=== PATIENT | male | born 1935 | race Caucasian/White ===

== ENCOUNTER 2020-01-12 13:23 | Emergency (ER) | payer OTHER, SELFPAY ==
[2020-01-12 13:26] VITALS: BP 108/45; PULSE 61; RESP 16; TEMP 35.6; O2SAT 100; BMI 25.8
--- NOTE | 2020-01-12 13:33 | W.ED.GENADLT ---
HPI - General Adult General: Chief complaint: General Medical Stated complaint: passed out Time Seen by Provider: 01/12/20 13:30 History of Present Illness: HPI narrative: 84 yo male presents after an episode of syncope. 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 he had a similar episode a few weeks ago while he was standing at [facility] at the checkout got lightheaded dizzy and passed out did not remember what exactly happened. He was not evaluated after that episode. He denies knowledge of any previous arrhythmias or atrial fibrillation is aware of he does have a pacemaker but he was not really able to tell me why they gave it to him. He denies any episodes of chest pain or dyspnea associated with these syncopal episodes. Both times he been standing for prolonged period of time not had any other complaints recently generally not been ill. He denies chest pain shortness of breath or abdominal pain denies dysuria urgency or frequency change in bowel or bladder habits. He does tell me he is on a blood thinner but does not know the name or why. Associated symptoms: Deny chest pain, dyspnea, malaise, nausea, rash or vomiting Review of Systems Const: Denies: fever, chills, body aches, change in appetite, fatigue or malaise ENMT: Denies: throat pain, ear pain, nasal discharge or nasal congestion Card: Denies: chest pain, edema, shortness of breath on exertion or shortness of breath when lying down Resp: Denies: shortness of breath, productive cough or non-productive cough GI: Denies: abdominal pain, nausea, vomiting, vomiting blood, coffee grounds in vomit, diarrhea, constipation, bloating, blood in stool or black tarry stool : Denies: flank pain, painful urination, urinary frequency or urinary urgency Skin/Breast: Denies: rash or itching PFSH ED PFSH: Medical History (Updated 01/12/20 @ 16:14 by Scott Cisneros DO) Abdominal wall hernia BPH (benign prostatic hyperplasia) Diabetes mellitus Hypertension Surgical History (Updated 01/12/20 @ 13:54 by Scott Cisneros DO) H/O bilateral inguinal hernia repair S/P appendectomy Social History Smoking and tobacco status: never smoked Physical Exam Const: COMMON NORMALS: no apparent distress GENERAL APPEARANCE: cooperative and comfortable ORIENTATION/CONSCIOUSNESS: Yes awake, Yes oriented to person, Yes oriented to place and Yes oriented to time HENMT: COMMON NORMALS: normocephalic, head/scalp atraumatic, hearing grossly normal bilaterally, external ears normal, EAC's normal, TM's normal bilaterally, nasal mucous membranes and turbinates normal, moist oral mucous membranes and oropharynx normal HEAD & SCALP: normocephalic and atraumatic NOSE: nasal mucous membranes and turbinates normal EXTERNAL EAR: Yes external ears normal EXTERNAL AUDITORY CANAL: EAC's normal TYMPANIC MEMBRANE: TM's normal bilaterally Eye: COMMON NORMALS: PERRL, EOMs intact bilaterally, conjunctivae normal and no scleral icterus CONJUNCTIVA: Yes conjunctivae normal PUPIL: Yes PERRL Neck/C-Spine: COMMON NORMALS: full ROM, no lymphadenopathy, supple and no JVD Lymph: LYMPHATIC: no lymphadenopathy noted and no lymphedema noted Resp: COMMON NORMALS: normal respiratory effort, no retractions, no use of accessory muscles and clear to auscultation bilaterally AUSCULTATION: clear to auscultation bilaterally Cardio: COMMON NORMALS: no JVD, regular rhythm and no murmurs RATE: bradycardic RHYTHM: regular rhythm GI: COMMON NORMALS: soft to palpation and no hepatosplenomegaly AUSCULTATION: Yes normoactive bowel sounds PALPATION: Yes soft, No tender, No guarding and Yes no hepatosplenomegaly Extremity: COMMON NORMALS: normal to inspection, normal capillary refill, no clubbing, cyanosis or edema, no calf tenderness and no pedal edema Neuro: SENSORIUM/ORIENTATION: Yes oriented to person, Yes oriented to place and Yes oriented to time Skin: COMMON NORMALS: no rashes or lesions noted GENERAL SKIN EXAM: no rashes or lesions noted Course Vital Signs: Vital signs: Vital Signs Temperature 96.0 F L 01/12/20 13:26 Pulse Rate 64 01/12/20 16:40 Respiratory Rate 25 H 01/12/20 16:40 Blood Pressure 142/59 01/12/20 16:40 Pulse Oximetry 94 01/12/20 16:40 MDM - General Adult MDM Narrative: Medical decision making narrative: He has no evidence of head trauma he is awake and alert no evidence of any intracranial issues on exam. He is very bradycardic and has what sounds like postural hypotension he did improve some fluid. Organ to go ahead and discharge him home and cut his carvedilol down to 6.25 twice daily he can use his current tablets and take a half a tablet twice a day rather than the full 12.5 mg. Discussed this with him and strongly encouraged him to follow-up with his primary care doctor within the next week or sooner he should take an blood pressure logs at that time as well. If he has any further problems return to the emergency room. Lab Data: Labs: Lab Results 01/12/20 01/12/20 Range/Units 14:25 14:25 WBC 8.1 (4.0-10.0) 10^3/ uL RBC 4.07 L (4.1-5.3) 10^6/u L Hgb 13.2 (11.7-16.6) g/dL Hct 40.4 L (42.0-52.0) % MCV 99.3 H (80-94) fL MCH 32.4 (28.0-34.0) pg MCHC 32.7 (30.0-36.0) g/dL RDW 13.3 (12.1-15.1) % Plt Count 240 (130-400) 10^3/c mm MPV 9.6 (7.4-10.4) fL Neut % (Auto) 79.1 % Lymph % (Auto) 12.1 % [place] % (Auto) 6.9 % Eos % (Auto) 1.2 % Baso % (Auto) 0.5 % Neut # (Auto) 6.4 (1.8-7.7) 10^3/u L Lymph # (Auto) 1.0 (0.8-4.8) 10^3/u L [place] # (Auto) 0.6 (0.2-0.9) 10^3/u L Eos # (Auto) 0.1 (0.0-0.8) 10^3/u L Baso # (Auto) 0.0 (0.0-0.1) 10^3/u L Nucleated RBC % (a uto) 0 % Nucleated RBCs # 0.0 /100WBC Sodium 138 (136-145) mmol/L Potassium 4.6 (3.5-5.1) mmol/L Chloride 102 (98-107) mmol/L Carbon Dioxide 26 (22-29) mmol/L Anion Gap 14.6 (5-19) BUN 19 (8-23) mg/dL Creatinine 1.1 (0.7-1.2) mg/dL Glucose 105 (65-115) mg/dL Calculated Osmolal ity 283 L (285-295) mOsm/k g Calcium 9.4 (8.5-10.5) mg/dL Total Bilirubin 0.4 (0.15-1.2) mg/dL AST 17 (0-40) U/L ALT 15 (0-41) U/L Alkaline Phosphata se 67 (40-130) IU/L Total Protein 6.9 (6.6-8.7) g/dL Albumin 4.4 (3.5-5.2) g/dL Globulin 2.5 (1.3-4.6) g/dL Discharge Plan Discharge Patient Disposition: Home, Self-Care Clinical Impression: Syncope, Hypertension Condition: Stable Prescriptions: Changed carvedilol 25 mg Tablet 6.25 mg PO BID Qty: 0 RF: 0 No Action losartan 50 mg Tablet 25 mg PO DAILY RF: 0 Plavix 75 mg Tablet 75 mg PO DAILY RF: 0 simvastatin 80 mg Tablet 40 mg PO DAILY RF: 0 hydrocodone-acetaminophen 7.5-325 mg Tablet 1 tab PO Q6H PRN (Reason: Pain) RF: 0 metformin 1,000 mg Tablet 500 mg PO BID RF: 0 aspirin 81 mg Tablet,Chewable 81 mg PO DAILY RF: 0 finasteride 5 mg Tablet 5 mg PO DAILY RF: 0 Vitamin D3 25 mcg (1,000 unit) Capsule 25 mcg PO DAILY RF: 0 Advil 100 mg Tablet 200 mg PO QAM RF: 0 Discharge Orders: Discharge Order (Routine); Ordered 01/12/20 Ordered By: Scott Cisneros Referrals: Tray Mcclellan, DO [Primary Care Provider] - Discharge Diet: Usual diet Discharge Activity: Limit activity as instructed Activity Restrictions/Additional Instructions: Recheck with your primary care doctor in the next 3 to 4 days to recheck your heart rate and blood pressure. Decrease the carvedilol to 6.25 p.o. twice daily Discharge Date/Time: 01/12/20 16:41 Coding Level of Care Code ED Library Acquisitions Technician for Chg Fwd Exam Comprehensive
[2020-01-12 13:41] VITALS: BP 108/45; PULSE 59; RESP 16; O2SAT 98
--- NOTE | 2020-01-12 13:50 | XR_ITS ---
WS: [id number] CHEST XRAY TECHNIQUE: Portable chest. CLINICAL INFORMATION: dyspnea/cough COMPARISON: 010 FINDINGS: Single lead cardiac pacer. Heart: Cardiomegaly. Lungs: Moderate chronic emphysematous changes. No acute pulmonary infiltrates. Trace right pleural ef fusion/pleural thickening unchanged. Bones: Normal visualized bony structures. XR/XR chest 1V portable [id number] IMPRESSION: 1. Trace right pleural effusion/pleural thickening unchanged. 2. Stable cardiomegaly. 3. Chronic emphysematous changes.
[2020-01-12 14:24] VITALS: BP 114/50; BP 114/51; BP 115/63; PULSE 59; PULSE 61; RESP 20; O2SAT 97
[2020-01-12 14:44] LABS: Basophils % 0.5 %; Eosinophils # 0.1 10^3/uL (0.0-0.8); Eosinophils % 1.2 %; Hematocrit 40.4 % (42.0-52.0); Hemoglobin 13.2 g/dL (11.7-16.6); Lymphocytes % 12.1 %; Mean Corpuscular HGB Conc 32.7 g/dL (30.0-36.0); Mean Corpuscular Hemoglobin 32.4 pg (28.0-34.0); Mean Corpuscular Volume 99.3 fL (80-94); Mean Platelet Volume 9.6 fL (7.4-10.4); Monocytes # 0.6 10^3/uL (0.2-0.9); Monocytes % 6.9 %; Neutrophils # 6.4 10^3/uL (1.8-7.7); Neutrophils % 79.1 %; Nucleated Red Blood Cells % 0 %; Platelet Count 240 10^3/cmm (130-400); Red Blood Count 4.07 10^6/uL (4.1-5.3); Red Cell Distribution Width 13.3 % (12.1-15.1); White Blood Count 8.1 10^3/uL (4.0-10.0)
[2020-01-12 14:49] LABS: Alanine Aminotransferase 15 U/L (0-41); Albumin Level 4.4 g/dL (3.5-5.2); Alkaline Phosphatase 67 IU/L (40-130); Anion Gap 14.6 (5-19); Aspartate Amino Transferase 17 U/L (0-40); Blood Urea Nitrogen 19 mg/dL (8-23); Calcium 9.4 mg/dL (8.5-10.5); Carbon Dioxide 26 mmol/L (22-29); Chloride 102 mmol/L (98-107); Globulin 2.5 g/dL (1.3-4.6); Glucose 105 mg/dL (65-115); Osmolality Calculated 283 mOsm/kg (285-295); Potassium 4.6 mmol/L (3.5-5.1); Sodium 138 mmol/L (136-145); Total Bilirubin 0.4 mg/dL (0.15-1.2); Total Protein 6.9 g/dL (6.6-8.7)
[2020-01-12] MEDS: sodium chloride 0.9% 500 ML 999 ML IV (14:49)
[2020-01-12 15:30] VITALS: BP 110/56; PULSE 71; RESP 15; O2SAT 98
[2020-01-12 16:40] VITALS: BP 142/59; PULSE 64; RESP 25; O2SAT 94
== END 2020-01-12 16:41 | disposition home or self-care (01) ==
PROVIDERS: Emergency Provider Family Medicine; Family Provider Emergency Medicine Emergency Medical Services; PCP Emergency Medicine Emergency Medical Services
DX: R55 Syncope and collapse (principal); I10 Essential (primary) hypertension; Z79.02 Long term (current) use of antithrombotics/antiplatelets; Z79.84 Long term (current) use of oral hypoglycemic drugs; Z79.82 Long term (current) use of aspirin; E11.9 Type 2 diabetes mellitus without complications
CPT/HCPCS: 12345; 71045; 80053; 85025; 96360; 99283; J7040

== ENCOUNTER 2020-05-03 09:42 | Outpatient (CLI) | payer OTHER, SELFPAY ==
--- NOTE | 2020-05-03 17:42 | ONC CON_ITS ---
Dr. Bhagat New Patient Note Patient: Bernard Alonzo Unit #: [id number]: 1935 Dicatated By: Akiko Bhagat M.D.Date of Visit: May 03, 2020 Onc MED New Patient/Consult Referring Physician: No 'Referrals from' exist for this patient. History of Present Illness: Mr. 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 Patient underwent upper EUS in [place] on April 26, 2020 which showed 5 cm distal esophageal mass starting at 39 cm from incisors up to 44 cm mass was circumferential partially obstructing., 2 lymph nodes approximately 15 to 16 mm in size in the region surrounding the esophageal mass. Due to lymph nodes being present deep to the mass, no FNA was performed. Balloon dilation was done entire examined stomach was endoscopically normal Patient tolerated procedure well, after dilatation his swallowing improved, now can tolerate semisolid food reasonably well Patient denies smoking but used to drink heavily until recently, most of the time beer only. No hematemesis, no hemoptysis, denies any jaundice, denies any abdominal pain, denies any diarrhea or constipation or melena or hematochezia. Past Medical History: Mr. Alonzo's medical history consists of heart disease, hypertension, and type II diabetes. Past Surgical History: Mr. Alonzo's surgical/procedural history consists of appendectomy and foot surgery. Medications: Carvedilol 0.5 Tablet (of 12.5 mg) Oral b.i.d., Clopidogrel Bisulfate 1 Tablet (of 75 mg) Oral daily, Finasteride 1 Tablet (of 5 mg) Oral daily, HYDROcodone-Acetaminophen 1 Tablet (of 7.5-325 mg) Oral b.i.d., Losartan Potassium 0.5 Tablet (of 50 mg) Oral daily, metFORMIN HCl 0.5 Tablet (of 1000 mg) Oral daily, Pantoprazole Sodium 1 Tablet (of 40 mg) Tablet, enteric coated Oral daily, Simvastatin 0.5 Tablet (of 80 mg) Oral daily Allergies: No Known Allergies. Social History: Mr. Alonzo is . Mr. Alonzo has never smoked. He has no history of drinking. Family History: Mr. Alonzo's mother at age 85: old age, and diabetes. Mr. Alonzo's father at age 35: hunting accident. Mr. Alonzo has 1 brother who is alive. pt states his uncle had colon/stomach cancer. Review Of Symptoms: Constitutional - Appetite is good and weight is decreasing d/t inability to eat. No fever, night sweats, or hot flashes. Energy level is [id number], ENMT - No sinus congestion/drainage. No mouth sores. Positive for sore throat and difficulty swallowing, Hematologic/Lymphatic - No abnormal bruising or bleeding, Respiratory - No shortness of breath. No cough. No pleuritic pain or hemoptysis, Cardiovascular - No angina pain. No palpitations, Gastrointestinal - No nausea or vomiting. No heartburn or acid reflux. Flucuates between diarrhea and constipation. No blood in the stool or black stools, Genitourinary (M) - No dysuria or hematuria. Positive for urinary frequency and urgency, no incontinence, Musculoskeletal - No joint or bone pain, Neurologic - No headache or dizziness. Positive for slight numbness/tingling in fingertips, Psychiatric - No anxiety or depression. No insomnia. Vital Signs: Performed on May 03, 2020 10:45: 4, 25.12, 1.84 sq.m, 67.00 in, 95 % (LOW), 67 /min, 18 /min, 119/65 mm(hg), 97.2 F (LOW), and 160.4 lbs (HIGH). Performance Status: 0 - Fully active, able to carry on all predisease activities without restrictions. (ECOG) Physical Examination: ENMT - No mouth sores, no thrush, no jaundice, Respiratory - Lungs are clear, Cardiovascular - Regular rate and rhythm of heart, Abdomen - Soft, bowel sounds present, Extremities - No visible edema. Lab/Imaging: Most recent lab results are not available for this patient. 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 Hepatic and left renal cysts. Upper EUS done on April 26, 2020 showed presence of large 19 x 11 mm hypoechoic mass involving all 3 layers of esophagus. There was presence of 2 lymph nodes measuring 15 to 16 mm in size and the region surrounding the esophageal mass, due to lymph nodes being present deep to the mass, no FNA was performed. Aorta with celiac takeoff was unremarkable without any celiac lymphadenopathy Ucn-jzjvwdy-giqthxtmp diabetes mellitus, on oral hypoglycemic Status post pacemaker Coronary artery disease. Plan: Discussed with patient regarding disease status and treatment options, at this point, we will proceed with CT PET scan to complete staging work-up if not done in [place], as per Dr. Cruz's note from April 26, 2020, said he will order whole-body PET scan We will also consider Port-A-Cath placement to facilitate systemic chemotherapy and refer him to radiation oncology for evaluation, For possible combined chemoradiation if CT PET scan confirmed localized disease Patient return to clinic after CT PET scan with CBC CMP, for further discussion and planning. Signed By: Akiko Bhagat M.D. <<Signature on File>>
== END 2020-05-03 09:43 | disposition home or self-care (01) ==
PROVIDERS: PCP Emergency Medicine Emergency Medical Services; Visit Provider Internal Medicine Hematology & Oncology
DX: C15.5 Malignant neoplasm of lower third of esophagus (principal); E11.9 Type 2 diabetes mellitus without complications; I25.10 Atherosclerotic heart disease of native coronary artery without angina pectoris; Z79.84 Long term (current) use of oral hypoglycemic drugs; Z95.0 Presence of cardiac pacemaker
CPT/HCPCS: 99203

== ENCOUNTER → 2020-05-14 10:53 | Outpatient (BNVA) | payer OTHER, SELFPAY | PROVIDERS: PCP Emergency Medicine Emergency Medical Services; Visit Provider Internal Medicine | DX: Z20.828 Contact with and (suspected) exposure to other viral communicable diseases (principal); C15.9 Malignant neoplasm of esophagus, unspecified | CPT/HCPCS: 87635 ==

== ENCOUNTER 2020-05-18 05:47 | Day surgery (SDC) | payer OTHER, SELFPAY ==
--- NOTE | 2020-05-18 | SCC_ITS ---
Procedure Done: Placement of right subclavian vein PowerPort under fluoroscopic guidance where the whole entire procedure was interpreted by me 27.7 seconds of fluoroscopic guidance, for a cumulative dose of 3.40 mGy, was provided to Dr. Cano by the radiology department. C-arm images of the abdomen were saved for the patient's permanent record. [facility]
--- NOTE | 2020-05-18 05:38 | SC_ITS ---
WS: [id number] INTRAOPERATIVE TECHNIQUE: 2 Spot fluoroscopic images for intraoperative purposes. FLUOROSCOPY TIME: 27.7 seconds CLINICAL INFORMATION: Port-A-Cath placement COMPARISON: None. FINDINGS: Right Port-A-Cath with tip in the mid SVC. No visualized pneumothorax. SC/C-arm FL for CVA [id number] IMPRESSION: Images obtained for intraoperative purposes.
[2020-05-18 05:51] VITALS: BP 148/74; PULSE 59; RESP 18; TEMP 36.1; BMI 24.6
[2020-05-18 06:22] LABS: Glucose Point of Care 86 mg/dL (70-110)
--- NOTE | 2020-05-18 06:23 | W.PM.OPSUD ---
Surgery/Procedure H&P Update DATE OF PROCEDURE: May 18, 2020 DATE H&P PERFORMED: 05/05/20 H&P UPDATE INFORMATION: I have reviewed H&P completed within last 30 days, I have examined patient prior to procedure and No changes to prior documentation PREOP DIAGNOSIS: Esophageal cancer requiring Port-A-Cath PRIMARY INDICATION FOR PROCEDURE: The same PLANNED PROCEDURE: Operation Date: 05/18/20 07:00 Proposed Procedures p Portacath Placement 41840 C15.9(Not Applicable) - Flip Cano MD
[2020-05-18] MEDS: sodium chloride 0.9% 1,000 ML 30 ML IV (06:25)
--- NOTE | 2020-05-18 06:39 | ANES.PREANE2 ---
Pre-Anesthetic Assessment Pre-Anesthetic Assessment: Height/Weight: Height 1.69 m Weight 70.307 kg Temp Pulse Resp BP 97 F L 59 L 18 148/74 05/18/20 05:51 05/18/20 05:51 05/18/20 05:51 05/18/20 05:51 Preop Diagnosis: Esophageal cancer requiring Port-A-Cath Proposed Procedure: Operation Date: 05/18/20 07:00 Proposed Procedures p Portacath Placement 04102 C15.9(Not Applicable) - Flip Cano MD Familial anesthetic complications: None Was Beta Danielle taken within 24 hours: Yes Last intake: Intake sips of water with meds this morning Last Liquid Date 05/17/20 Last Liquid Time 18:00 Last Solid Date 05/17/20 Last Solid Time 18:00 Social: Social History: No alcohol and No tobacco Exam: Pre-Anes Outpt Exam: alert, oriented x 3, clear to auscultation bilaterally and regular rate & rhythm Airway: Cervical ROM: WNL MP: 1 Dentition: Partials Pulmonary: Pulmonary: None reported CV/HEM: CV/HEM: CAD (stents last one 13 years ago) and HTN Comments: pacemaker/defibrillator - will place magnet if cautery : : None reported Hepatic: Hepatic: None reported GI: GI: GERD Comments: well controlled Metabolic: Metabolic: DM Musc/skel: Musc/skel: Lower Back Pain Anesthetic Plan: ASA status: 4 Anesthesia: MAC Risk of > 500 ml blood loss (7ml/kg in children): No Meds/Allergies Current Medications: Current Medications Generic Name Dose Route Start Last Admin Trade Name Freq PRN Reason Stop Dose Admin Sodium Chloride 1,000 mls @ 30 ml s/hr 05/18/20 05:45 05/18/20 06:25 Sodium Chloride 0.9% IV 05/19/20 05:44 30 mls/hr .Q24H ALICE Administration PFSH Anesthesia PFSH: Medical History Abdominal wall hernia BPH (benign prostatic hyperplasia) Diabetes mellitus Esophageal cancer Hypertension Surgical History H/O bilateral inguinal hernia repair History of foot surgery S/P appendectomy Family History Denies family history of Anesthesia complication Bleeding disorder Social History Smoking and tobacco status: never smoked Data Anesthesia Other Labs: Laboratory Results - last 48 hr 05/18/20 06:18 POC Glucose 86 Cardiac Studies: No Data to Display
--- NOTE | 2020-05-18 06:46 | ECG_ITS ---
[facility] Test Date: 2020-05-18 Pat Name: Bernard Alonzo Department: Room: Gender: Male Guest Services Agent: : 1935 Requested By: Rita Parra Order Number: [id number] Johnna MD: Dulce Hudson M.D. Measurements Intervals [place]ard Rate: 56 P: 39 VT: 243 QRS: -1 QRSD: 124 T: 129 QT: 431 QTc: 419 Interpretive Statements SINUS BRADYCARDIA WITH FIRST DEGREE AV BLOCK MODERATE INTRAVENTRICULAR CONDUCTION DELAY [105+ ms QRS DURATION, 80+ ms Q/S IN V1/V2, NO Q AND 60+ ms R IN I/aVL/V5/V6] NONSPECIFIC ST & T-WAVE ABNORMALITY No previous ECG available for comparison Electronically Signed On 05-18-2020 17:29:20 CDT by Dulce Hudson M.D. [id number]
[2020-05-18] MEDS: heparin, porcine 1,000 unit/mL INJ 10 mL 10000 UNIT INJECTION (07:26)
[2020-05-18] MEDS: lidocaine 2% INJ 20 mL INJECTION (07:26)
--- NOTE | 2020-05-18 07:27 | SUR.OPER ---
magnet placed over difibrillaor/ pacemaker and coverd with tegaderm
--- NOTE | 2020-05-18 07:48 | P.OP_ITS ---
Operative Report Date of procedure: May 18, 2020 Pre-op Diagnosis: Esophageal cancer requiring Port-A-Cath Post-op diagnosis: same Post-op Findings: Right subclavian vein PowerPort placement Procedure Done: Placement of right subclavian vein PowerPort under fluoroscopic guidance where the whole entire procedure was interpreted by me Implants: Right subclavian vein PowerPort Surgeon: Flip Cano Sausage Canner: hyperbaric tech Natalie Circulating nurse Shyanne Anesthesia: MAC (volunteer services supervisor Smart) Estimated blood loss (mL): 5 Condition: stable Disposition: same day Brief History: This is a pleasant 85 years old gentleman with history of esophageal cancer requiring chemotherapy, patient was referred to me for placement of PowerPort. Plan of care; After thorough history physical examination and reviewing the chart, I counseled the patient for Port-A-Cath placement, indications, risks including pneumothorax and injury of major vascular structures, benefits,indications and alternatives were all discussed with the patient, patient understands and is interested to proceed. Rationale was carefully and clearly discussed with the patient.Appropriate informed consent have been reviewed and signed. Procedure: Patient was identified in the holding area and taken to the operative room and placed in supine position IV propofol was given by the anesthesia provider ,both arms were tucked,Time-out was done verifying the patient's name/date of /planned procedure and destination after the procedure, all were in agreement. SCDs confirmed to be functioning, preoperative antibiotics administered per protocol, and beta shawna protocol was confirmed, appropriate positioning of the patient was done by me. Medications were reviewed to assess for anticoagulant usage. Risks and benefits and prevention of central line associated blood stream infection (CLABSI) were discussed with the patient/CPOA, and a consent was obtained. Monitors were in place and monitored throughout the procedure. All necessary supplies were available prior to start. Hand hygiene was completed prior to starting. Maximum barrier technique was utilized including a sterile gown, sterile gloves with a hat and mask. Site was was prepped with [chlorhexidine] and a full body drape was placed. 5 mL of 2% lidocaine was injected into the skin with a 25 gauge needle. Prep& drape was done under the usual sterile technique, lidocaine 2% was injected at the site of the stick, started by right subclavian stick that retrieved venous blood was obtained from the first stick, a guidewire was then threaded it was held did not go thru so I had to stop due to some coiling seen under Furoscopy and re-stick again and at that point the guidewire slid easily and smoothly and under the guidance of fluoroscopy position was confirmed to be in the IVC and my interpretation, there was no PVC changes, at that point the guidewire was secured to the drapes with a hemostat and the needle was taken out, attention was then deviated towards creation of a pocket for the port were lidocaine 2% was injected using an 15 blade knife skin incision was created dissection using the Bovie to create a pocket for the Port-A-Cath to be accommodated, hemostasis was secured, after the port being appropriately flushed it was inserted into the pocket and a tunneler was used to accommodate the catheter of the port cath to be delivered through the incision first created at the site of the stick, at that point under fluoroscopy an estimated length was measured for the catheter and was cut at the designed level, followed by that a dilator with the sheath introduced onto the guidewire the dilator and the wire were retrieved and the catheter of the port was introduced via the sheath where it was peeled off and the catheter maintained to be in the SVC that was confirmed with fluoroscopy, and the fluoroscopy interpretation was done by me throughout the entire procedure. The port was kept in its place,3-0 Vicryl deep subdermal interrupted sutures, skin was then closed by 4-0 Monocryl as subcuticular closure. The stick site was closed by 4-0 Monocryl and Dermabond was used followed by dressing. Patient tolerated the procedure well was taken to the recovery area Count was correct at the end of the procedure I was present for the whole entire procedure. Position of the catheter was checked with a postoperative chest x-ray and it was in good position without evidence of pneumothorax.
--- NOTE | 2020-05-18 07:54 | XR_ITS ---
WS: [id number] CHEST XRAY TECHNIQUE: Portable chest. CLINICAL INFORMATION: s/p placemnet of right SC vein Port-a-cath COMPARISON: None. FINDINGS: Right Port-A-Cath with tip in the proximal SVC. AICD. No pneumothorax. Heart: Cardiomegaly. Lungs: Moderate chronic emphysematous changes. Bibasilar atelectasis. Bones: Normal visualized bony structures. XR/XR chest 1V portable [id number] IMPRESSION: Right Port-A-Cath tip in the proximal SVC. No pneumothorax.
[2020-05-18 08:17] VITALS: BP 111/58; PULSE 59; RESP 16; TEMP 36.8; O2SAT 96
[2020-05-18 08:38] VITALS: BP 112/64; PULSE 67; RESP 18; O2SAT 97
--- NOTE | 2020-05-18 12:01 | ANE.PACU2 ---
Inpatient post-anesthesia follow up: Airway intact: Yes Vital signs: Temperature 98.3 F Pulse Rate 67 Respiratory Rate 18 Blood Pressure 112/64 Pulse Oximetry 97 Oxygen Delivery Me thod Room Air Oxygen Flow Rate Fraction of Inspir ed Oxygen Hydration adequate: Yes Nausea and vomiting: No Pain level: 1 Mental status: Baseline
== END 2020-05-18 08:56 | disposition home or self-care (01) ==
PROVIDERS: PCP Emergency Medicine Emergency Medical Services; Visit Provider Surgery
PROC: (CPT 36561; principal; 2020-05-18 07:00)
DX: C15.9 Malignant neoplasm of esophagus, unspecified (principal); I10 Essential (primary) hypertension; E11.9 Type 2 diabetes mellitus without complications; K21.9 Gastro-esophageal reflux disease without esophagitis; I25.10 Atherosclerotic heart disease of native coronary artery without angina pectoris; Z95.5 Presence of coronary angioplasty implant and graft; Z95.810 Presence of automatic (implantable) cardiac defibrillator; N40.0 Benign prostatic hyperplasia without lower urinary tract symptoms
CPT/HCPCS: 36561; 12345; 36416; 71045; 76000; 77001; 82962; 93005; 96365; C1788; J0690; J1644; J2704; J3010; J7030

== ENCOUNTER 2020-05-25 11:04 | Outpatient (CLI) | payer OTHER, SELFPAY ==
[2020-05-25 12:08] LABS: Basophils % 0.7 %; Eosinophils # 0.2 10^3/uL (0.0-0.8); Eosinophils % 2.7 %; Hematocrit 37.9 % (42.0-52.0); Hemoglobin 12.2 g/dL (11.7-16.6); Lymphocytes # 1.3 10^3/uL (0.8-4.8); Lymphocytes % 22.6 %; Mean Corpuscular HGB Conc 32.2 g/dL (30.0-36.0); Mean Corpuscular Hemoglobin 31.4 pg (28.0-34.0); Mean Corpuscular Volume 97.7 fL (80-94); Mean Platelet Volume 9.9 fL (7.4-10.4); Monocytes # 0.5 10^3/uL (0.2-0.9); Monocytes % 8.7 %; Neutrophils % 64.9 %; Nucleated Red Blood Cells % 0 %; Platelet Count 210 10^3/cmm (130-400); Red Blood Count 3.88 10^6/uL (4.1-5.3); Red Cell Distribution Width 13.5 % (12.1-15.1); White Blood Count 5.5 10^3/uL (4.0-10.0)
[2020-05-25 12:20] LABS: Alanine Aminotransferase 13 U/L (0-41); Alkaline Phosphatase 66 IU/L (40-130); Anion Gap 17.1 (5-19); Aspartate Amino Transferase 15 U/L (0-40); Blood Urea Nitrogen 7 mg/dL (8-23); Calcium 8.3 mg/dL (8.5-10.5); Carbon Dioxide 21 mmol/L (22-29); Chloride 101 mmol/L (98-107); Globulin 2.5 g/dL (1.3-4.6); Glucose 110 mg/dL (65-115); Osmolality Calculated 276 mOsm/kg (285-295); Potassium 4.1 mmol/L (3.5-5.1); Sodium 135 mmol/L (136-145); Total Bilirubin 0.3 mg/dL (0.15-1.2); Total Protein 6.5 g/dL (6.6-8.7)
--- NOTE | 2020-05-25 13:58 | ONC FU_ITS ---
Dr. Bhagat follow up note Patient: Bernard Alonzo < Unit #: [id number]: 1935 Dicatated By: Akiko Bhagat M.D.Date of Visit:May 25, 2020 Onc Med Follow-up/Prog Note History of Present Illness: Mr. 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 Patient underwent upper EUS in [place] on April 26, 2020 which showed 5 cm distal esophageal mass starting at 39 cm from incisors up to 44 cm mass was circumferential partially obstructing., 2 lymph nodes approximately 15 to 16 mm in size in the region surrounding the esophageal mass. Due to lymph nodes being present deep to the mass, no FNA was performed. Balloon dilation was done entire examined stomach was endoscopically normal Patient tolerated procedure well, after dilatation his swallowing improved, now can tolerate semisolid food reasonably well Patient denies smoking but used to drink heavily until recently, most of the time beer only. No hematemesis, no hemoptysis, denies any jaundice, denies any abdominal pain, denies any diarrhea or constipation or melena or hematochezia. Staging PET scan done on May 21, 2020 showed hypermetabolic metastatic GE junction with SUV of 9.49. No other suspicious focus of increased uptake seen in chest and abdomen. Came for follow-up, denies any specific complaint except mild to moderate dysphagia to certain foods especially with meats. But accepting liquids and semi-solid reasonably well. No fever chills no nausea or vomiting no diarrhea or constipation. No chest pain Medications: Carvedilol 0.5 Tablet (of 12.5 mg) Oral b.i.d., Clopidogrel Bisulfate 1 Tablet (of 75 mg) Oral daily, Finasteride 1 Tablet (of 5 mg) Oral daily, HYDROcodone-Acetaminophen 1 Tablet (of 7.5-325 mg) Oral b.i.d., Losartan Potassium 0.5 Tablet (of 50 mg) Oral daily, metFORMIN HCl 0.5 Tablet (of 1000 mg) Oral daily, Pantoprazole Sodium 1 Tablet (of 40 mg) Tablet, enteric coated Oral daily, Simvastatin 0.5 Tablet (of 80 mg) Oral daily Allergies: No Known Allergies. Review of Systems: Constitutional - Appetite is good and weight is decreasing d/t inability to eat. No fever, night sweats, or hot flashes. Energy level is [id number], ENMT - No sinus congestion/drainage. No mouth sores. Positive for sore throat and difficulty swallowing, Hematologic/Lymphatic - No abnormal bruising or bleeding, Respiratory - No shortness of breath. No cough. No pleuritic pain or hemoptysis, Cardiovascular - No angina pain. No palpitations, Gastrointestinal - No nausea or vomiting. No heartburn or acid reflux. Flucuates between diarrhea and constipation. No blood in the stool or black stools, Genitourinary (M) - No dysuria or hematuria. Positive for urinary frequency and urgency, no incontinence, Musculoskeletal - No joint or bone pain, Neurologic - No headache or dizziness. Positive for slight numbness/tingling in fingertips, Psychiatric - No anxiety or depression. No insomnia. Vital Signs: Performed on May 25, 2020 12:47 Height - 67.00 in Weight - 163.8 lbs (HIGH) BSA - 1.86 sq.m BMI - 25.65 Temperature - 96.8 F (LOW) Pulse - 59 /min (LOW) Respiration - 18 /min BP - 114/49 mm(hg) O2 Sat - 99 % Pain - 9 Performance Status: 0 - Fully active, able to carry on all predisease activities without restrictions. (ECOG) Physical Examination: ENMT - No mouth sores, no thrush, no jaundice, Respiratory - Lungs are clear, Cardiovascular - Regular rate and rhythm of heart, Abdomen - Soft, bowel sounds present, Extremities - No visible edema. Lab/Imaging: Most recent lab results are not available for this patient. 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 Hepatic and left renal cysts. Upper EUS done on April 26, 2020 showed presence of large 19 x 11 mm hypoechoic mass involving all 3 layers of esophagus. ?T3 There was presence of 2 lymph nodes measuring 15 to 16 mm in size and the region surrounding the esophageal mass, due to lymph nodes being present deep to the mass, no FNA was performed. Aorta with celiac takeoff was unremarkable without any celiac lymphadenopathy Staging CT PET scan done on May 21, 2020 showed hypermetabolic mass at the gastroesophageal junction consistent with esophageal carcinoma. No findings to suggest distant or local regional disease [id number] diabetes mellitus, on oral hypoglycemic Status post pacemaker Coronary artery disease. Plan: Discussed with patient and his son regarding his labs white blood count 5.5 hemoglobin 12.2 hematocrit 37.9 platelets 210 CMP within normal limits and CT PET scan finding which shows localized disease no evidence of lymphadenopathy or distant mets Clinically, patient is doing reasonably well with mild to moderate dysphagia, now being considered for combined chemoradiation with weekly carboplatin/Taxol all the side effects possible benefits associated with carboplatin/Taxol including but not limited to bone marrow suppression, nausea vomiting, hair loss, hyperglycemia especially with steroids, peripheral neuropathy, thrombocytopenia were mentioned further teaching will be done by chemotherapy nurse, will obtain approval from his insurance prior to the treatment. Patient was referred to radiation oncology and still awaiting approval from [place] and patient and son is getting anxious as it has been 2 months since the diagnosis, and also concerned about progressive dysphagia, G-tube was recommended but patient is reluctant and declined in that case we will start him on weekly carboplatin/Taxol now and radiation therapy will be added once approved and evaluated by radiation oncology. After chemo radiation he will be evaluated and if good response that time will discuss about surgical evaluation versus considering his age, observation. He will return to clinic 1 week after chemotherapy is initiated with CBC CMP. Signed By: Akiko Bhagat M.D. <<Signature on File>>
== END 2020-05-25 11:05 | disposition home or self-care (01) ==
PROVIDERS: PCP Emergency Medicine Emergency Medical Services; Visit Provider Internal Medicine Hematology & Oncology
DX: C15.5 Malignant neoplasm of lower third of esophagus (principal); I25.10 Atherosclerotic heart disease of native coronary artery without angina pectoris; E11.9 Type 2 diabetes mellitus without complications; R13.10 Dysphagia, unspecified; Z95.0 Presence of cardiac pacemaker; Z79.84 Long term (current) use of oral hypoglycemic drugs
CPT/HCPCS: 80053; 85025; 99214

== ENCOUNTER 2020-06-02 06:39 | Outpatient (RCR) | payer OTHER, SELFPAY ==
--- NOTE | 2020-06-02 | CT_ITS ---
Radiation Therapy Planning CT images; total exam DLP: 2105.93 mGy-cm MTDD
[2020-06-02] MEDS: alteplase 1 mg/mL SDV 2 mL 2 MG IV (08:30)
[2020-06-02 09:28] LABS: Basophils % 0.1 %; Eosinophils % 0.1 %; Hematocrit 40.4 % (42.0-52.0); Hemoglobin 13.2 g/dL (11.7-16.6); Lymphocytes # 0.4 10^3/uL (0.8-4.8); Lymphocytes % 4.9 %; Mean Corpuscular HGB Conc 32.7 g/dL (30.0-36.0); Mean Corpuscular Hemoglobin 31.1 pg (28.0-34.0); Mean Corpuscular Volume 95.1 fL (80-94); Mean Platelet Volume 10.1 fL (7.4-10.4); Monocytes % 0.5 %; Nucleated Red Blood Cells % 0 %; Platelet Count 260 10^3/cmm (130-400); Red Blood Count 4.25 10^6/uL (4.1-5.3); Red Cell Distribution Width 13.5 % (12.1-15.1); White Blood Count 8.5 10^3/uL (4.0-10.0)
[2020-06-02 09:48] LABS: Alanine Aminotransferase 11 U/L (0-41); Albumin Level 4.1 g/dL (3.5-5.2); Alkaline Phosphatase 78 IU/L (40-130); Aspartate Amino Transferase 15 U/L (0-40); Blood Urea Nitrogen 10 mg/dL (8-23); Calcium 9.1 mg/dL (8.5-10.5); Carbon Dioxide 23 mmol/L (22-29); Chloride 102 mmol/L (98-107); Globulin 2.9 g/dL (1.3-4.6); Glucose 156 mg/dL (65-115); Osmolality Calculated 283 mOsm/kg (285-295); Sodium 137 mmol/L (136-145); Total Bilirubin 0.4 mg/dL (0.15-1.2)
[2020-06-02 10:01] LABS: Anion Gap 16.3 (5-19); Potassium 4.3 mmol/L (3.5-5.1)
[2020-06-02] MEDS: sodium chloride 0.9% 250 ML 75 ML IV (10:57)
--- NOTE | 2020-06-03 09:57 | N.ONRAD NP_ITS ---
Radiation Oncology New Patient Visit Patient: Bernard Alonzo MR#: [id number] : 1935 Age: 85 Sex: Male Dictated by: Dr. Pedro Arellano Date of Service: 06/02/2020 Referring Physician(s) : Dr Bhagat Diagnosis: C15.5 - malignant neoplasm of lower third of esophagus, Diagnosed 05/03/2020 (active). [id number] distal esophageal adenocarcinoma. EUS revealed a 5 cm partially obstructing distal esophageal mass invading muscularis propria and adventitia located at 39-44 cm from the incisors with 2 paraesophageal lymph nodes. Radiotherapy to date: Summary > No prior radiation therapy. Chief Complaint / History of Present Illness: Patient is an 85-year-old male with a past medical history significant for a pacemaker and 3 abdominal surgeries (appendectomy and 2 trauma related surgeries). He presented with progressive dysphasia, and 20 pound weight loss. A subsequent EGD (03/18/2020) revealed a partially obstructing 5 cm long distal esophageal mass starting at 39 cm from incisors to 44 cm. A balloon dilation up to 1.7 cm was completed and there was no mucosal irregularity within the stomach. An upper EUS revealed that the hypoechoic mass invaded muscularis propria and adventitia consistent with T3 disease coupled with the presence of 2 paraesophageal lymph nodes (not amenable to biopsy). Biopsy of the esophageal mass revealed moderately to poorly differentiated adenocarcinoma. CT of the abdomen (03/30/2020) revealed a few prominent, nonspecific, enlarged mediastinal lymph nodes (largest measuring 2 x 0.9 cm) along with the malignant appearing mass in the distal esophagus. A PET/CT (05/21/2020) revealed hypermetabolic activity at the distal esophagus without neighboring FDG lymph node avidity, or radiographic concern for metastasis. There was no material FDG avidity in the mediastinum. The patient is seen in consultation today and he reports continued dysphagia to solids, but not liquids. He shares that he quit drinking, and that he does not smoke. He reports no abdominal pain, black tarry stools, or hemoptysis. Current Medications: Carvedilol, cathflo Activase, clopidogrel Bisulfate, dexamethasone, finasteride, hYDROcodone-Acetaminophen, lORazepam, losartan Potassium, metFORMIN HCl, pantoprazole Sodium, prochlorperazine Maleate, simvastatin. Allergies: No Known Allergies Medical History: - Heart disease, - hypertension, - type II diabetes. No history of collagen vascular disease. No previous radiation therapy. Surgical History: Appendectomy, foot surgery and portacatheter placement (). Family History: Father is at age 35 having experienced hunting accident. Mother is at age 85 having experienced old age, and diabetes. Brother is alive. pt states his uncle had colon/stomach cancer Social History: Last screened on 05/25/2020 - Never smoked. Last screened on 05/25/2020 - Never drank. Current Complaints / Review of Systems: Constitutional - Complains of lack of appetite due to not being able to get food down, fatigue and change in weight down about 30 to 40 lbs. in the last couple of months. Denies fever and night sweats. Eyes - Denies blurred vision and double vision. ENMT - Denies dysphagia, ear pain, mouth dryness, stomatitis and altered taste. Neck - Denies neck pain. Integumentary - Denies rash. Cardiovascular - Denies arrhythmias, chest pain and edema. Has a Pacemaker. Respiratory - Complains of hiccoughs. Denies cough, dyspnea and wheezing. Gastrointestinal - Complains of occasional diarrhea. Complains of vomiting when food is not chewed up very fine and it will come back up. Denies abdominal pain, constipation, heartburn / dyspepsia, melena / GI bleeding and nausea. Genitourinary (M) - Complains of nocturia gets up about 1 time per night. Denies dysuria, frequency and urgency. Musculoskeletal - Complains of generalized muscle weakness. Denies bone pain and joint pain. Neurologic - Complains of dizziness occaionally. Denies abnormal gait and headaches. Endocrine - Complains of Type 2 diabetes. Denies thyroid disease. Hematologic/Lymphatic - Denies tender or enlarged lymph nodes.. Vital Signs: Performed on 06/02/2020 9:49 AM BMI - 24.715 kg/m2 (high), Height - 67.00 in, Weight - 157.8 lbs, Temperature - 97.6 f, Pulse - 76, Respiration - 18, O2 Sat - 97 %, Pain - 0, BP - 156/ 75 mm(hg)(high/), Performed on 06/02/2020 10:50 AM Height - 67.00 in, Temperature - 97.6 f (low), Pulse - 76 /min, Respiration - 18 /min, O2 Sat - 97 %, Pain - 0 and BP - 156/ 75 mm(hg)(high/). Physical Exam: GENERAL:??? The patient is alert, and in no acute distress. HEENT:??? Head is normocephalic. Face is symmetric. External ocular movements are intact. Sclera and conjunctivae are non erythematous. NECK:??? Trachea is midline.??? Thyroid is not enlarged by palpation.??? LYMPH NODES:??? There is no cervical, supraclavicular, or axillary adenopathy bilaterally. LUNGS:??? Clear to auscultation bilaterally. Respiratory movement is unlabored. HEART:??? Regular rate and rhythm. ABDOMEN:??? Soft, nontender, without palpable mass.??? No hepatosplenomegaly. The patient has a well-healed midline abdominal surgical scar. EXTREMITIES:??? No deformities. NEUROLOGIC:??? Gait and station are normal.??? The patient is well coordinated and strength is equal bilaterally. MEDICAL ORDERLY:??? Cranial nerves II-XII are intact and without focal deficits.??? Psych: Affect is normal. Skin: Cursory review of the skin reveals no obvious lesions concerning for malignancy. Performance Status: 1 - No physically strenuous activity, but ambulatory and able to carry out light or sedentary work (e.g. office work, light house work). (ECOG) Pathology: Primary, c15.5 - malignant neoplasm of lower third of esophagus, Diagnosed 05/03/2020 (active). Lab: Test performed on 05/25/2020 11:18 AM RBC - 3.88 10 6/ul (low), HCT - 37.9 % (low), MCV - 97.7 fl (high), Sodium - 135 mmol/l (low), CO2 - 21 mmol/l (low), BUN - 7 mg/dl (low), Calcium - 8.3 mg/dl (low) and Protein, Total - 6.5 g/dl (low). Imaging: See HPI Impression: The patient is an 85-year-old with pacemaker, a history of 3 abdominal surgeries, a good performance status, and a new diagnosis of T3 N1 M0 distal esophageal adenocarcinoma located at 39-44 cm from the incisors status post balloon dilation to 1.7 cm. EUS revealed 2 paraesophageal lymph nodes not readily amenable to biopsy. The patient reports that he is not ???excited about surgery???, yet it is not clear to me if the patient has been truly deemed not to be a surgical candidate, or if he is not making an informed decision regarding not having surgery. The patient was recommended to have his surgical questions addressed during consultation with a surgeon. Our office will facilitate this request. Whether the patient elects to undergo surgery, or he is deemed not to be a suitable surgical candidate, the radiation therapy planning aspect of treatment will not materially change. The current plan is for concurrent chemo radiation therapy to an aggregate dose of 50.4 Gy in 28 fractions (treatment influenced by the CROSS trial). The patient is scheduled to begin chemotherapy today, and we will also begin radiation therapy planning for a planned start date within early next week. Plan: -) 06/03/2020 9:58:58 AM <<Signature on File>> Time spent with patient: CPT Code: CPT Code:
== END 2020-06-02 23:59 | disposition home or self-care (01) ==
LOC: ONCMED 06:39
PROVIDERS: PCP Emergency Medicine Emergency Medical Services; Visit Provider Internal Medicine Hematology & Oncology
DX: Z51.11 Encounter for antineoplastic chemotherapy (principal); C15.5 Malignant neoplasm of lower third of esophagus; Z95.0 Presence of cardiac pacemaker; Z79.02 Long term (current) use of antithrombotics/antiplatelets
CPT/HCPCS: 36591; 36593; 77263; 77300; 77301; 77334; 77338; 77470; 80053; 85025; 96367; 96375; 96413; 96417; 99215; J1100; J1200; J2469; J2997; J3490; J7030; J7050; J9045; J9267

== ENCOUNTER 2020-06-05 09:07 | Inpatient (IN) | payer OTHER, MEDICARE, SELFPAY ==
[2020-06-05] VITALS (34 sets, daily range): BP systolic 97–130; BP diastolic 44–78; PULSE 78–111; RESP 0–26; TEMP 36.4–37.2; O2SAT 97–100; BMI 25.0
--- NOTE | 2020-06-05 09:24 | XRR_ITS ---
PROCEDURE INFORMATION: Exam: XR Chest, 1 View Exam date and time: 06/05/2020 9:26 AM Age: 85 years old Clinical indication: Cough and dyspnea; Additional info: Dyspnea/cough TECHNIQUE: Imaging protocol: XR of the chest Views: 1 view. COMPARISON: CR XR chest 1V portable [id number] 05/18/2020 8:00 AM FINDINGS: Tubes, catheters and devices: AICD and med port catheter. Lungs: Emphysematous change and nonspecific 7 mm nodular density overlying the right upper lung field. Pleural space: No pneumothorax or pleural effusion. Heart/Mediastinum: No cardiomegaly. Bones/joints: Degenerative change. XR/XR chest 1V portable [id number] IMPRESSION: Emphysematous change and nonspecific 7 mm nodular density overlying the right upper lung field.
--- NOTE | 2020-06-05 09:27 | ED_ITS ---
HPI - GI Bleed General: Chief complaint: GI Bleed Stated complaint: BLOODY STOOL AND N/V POST CHEMO Time Seen by Provider: 06/05/20 09:16 History of Present Illness: HPI Narrative: 85-year-old male with a history of esophageal cancer recently started chemotherapy. He has comes in today complaining of gross hematochezia as well as nausea and vomiting although he denied any hematemesis. He has had a little shortness of breath with that as well and after arriving here his oxygen sats worsened he is mildly tachycardic is not been able to keep anything down. He denies any fever he has no known COVID contacts. MD complaint: gross hematochezia Onset (ago): hour(s) Pain Consistency: constant Severity: moderate Relieving factors: none Exacerbating factors: none Context: other (Esophageal cancer with a recent start of chemotherapy) Associated symptoms: Reports abdominal pain (Left lower quadrant), malaise, nausea and poor appetite; Denies chills, fever(s), headache(s), other bleeding, rash, syncope, vomiting or weakness Treatments Prior to Arrival: none Review of Systems Const: Reports: malaise; Denies: fever(s) or chills ENMT: Denies: throat pain, ear or mastoid pain, nasal discharge or nasal congestion Card: Denies: syncope Resp: Denies: dyspnea, productive cough or non-productive cough GI: Reports: abdominal pain (Left lower quadrant) and nausea; Denies: vomiting : Denies: flank pain, dysuria, urinary frequency or urinary urgency Skin/Breast: Denies: rash Neuro: Denies: headache(s) PFSH ED PFSH: Medical History BPH (benign prostatic hyperplasia) CAD (coronary artery disease) Diabetes mellitus Diverticulosis Esophageal cancer Hypertension Surgical History H/O bilateral inguinal hernia repair H/O exploratory laparotomy I swallowed a safety pin when I was a kid and they had to open me up to get it out History of foot surgery R ankle fracture History of incisional hernia repair x 2 PEG (percutaneous endoscopic gastrostomy) status Port-A-Cath in place Right subclavian S/P appendectomy Status post coronary artery stent placement x 1 2006 Status post placement of cardiac pacemaker Family History Other Cancer Denies family history of Anesthesia complication Bleeding disorder Social History Quit status (tobacco): has quit using tobacco Former quit date comment: 1979 Alcohol intake: former Former alcohol use details: Quit in September. Formerly heavy drinker Substance/Drug Use: never Lives independently: Yes Household members: spouse Marital status: Physical Exam Const: COMMON NORMALS: no acute distress GENERAL APPEARANCE: cooperative and comfortable ORIENTATION/CONSCIOUSNESS: Yes awake, Yes oriented to person, Yes oriented to place and Yes oriented to time HENMT: COMMON NORMALS: normocephalic, atraumatic and hearing grossly normal bilaterally HEAD & SCALP: normocephalic and atraumatic Eye: COMMON NORMALS: Equal, round and reactive pupils present, EOMs intact bilaterally, conjunctivae normal and no scleral icterus CONJUNCTIVA: Yes conjunctivae normal PUPIL: Yes Equal, round and reactive pupils present Neck/C-Spine: COMMON NORMALS: full ROM, no lymphadenopathy, supple and no JVD Lymph: LYMPHATIC: no lymphadenopathy noted and no lymphedema noted Resp: COMMON NORMALS: normal respiratory effort, No retractions, No use of accessory muscles and clear to auscultation bilaterally AUSCULTATION: clear to auscultation bilaterally Cardio: COMMON NORMALS: no JVD, regular rate, regular rhythm and No murmurs present (Cardio) RATE: regular rate RHYTHM: regular rhythm GI: COMMON NORMALS: Soft to palpation and No hepatosplenomegaly present AUSCULTATION: Yes normoactive bowel sounds PALPATION: Yes Soft to palpation, No Tenderness to palpation present (GI), No Guarding due to palpation present (GI) and Yes No hepatosplenomegaly present Extremity: COMMON NORMALS: normal to inspection, capillary refill normal, no clubbing, cyanosis or edema, no calf tenderness and no pedal edema Neuro: SENSORIUM/ORIENTATION: Yes oriented to person, Yes oriented to place and Yes oriented to time Skin: COMMON NORMALS: no rashes or lesions noted GENERAL SKIN EXAM: no rashes or lesions noted Course Vital Signs: Vital signs: Vital Signs Temperature 99.5 F 06/08/20 04:00 Pulse Rate 77 06/08/20 04:00 Respiratory Rate 19 H 06/08/20 04:00 Blood Pressure 105/57 06/08/20 04:00 Pulse Oximetry 96 06/08/20 04:00 MDM - GI Bleed Lab Data: Labs: Lab Results 06/05/20 06/05/20 06/05/20 Range/Units 00:03 09:30 09:30 WBC (4.0-10.0) 10^3/ uL RBC (4.1-5.3) 10^6/u L Hgb Cancelled Hct (42.0-52.0) % MCV (80-94) fL MCH (28.0-34.0) pg MCHC (30.0-36.0) g/dL RDW (12.1-15.1) % Plt Count (130-400) 10^3/c mm MPV (7.4-10.4) fL Neut % (Auto) % Lymph % (Auto) % [place] % (Auto) % Eos % (Auto) % Baso % (Auto) % Neut # (Auto) (1.8-7.7) 10^3/u L Lymph # (Auto) (0.8-4.8) 10^3/u L [place] # (Auto) (0.2-0.9) 10^3/u L Eos # (Auto) (0.0-0.8) 10^3/u L Baso # (Auto) (0.0-0.1) 10^3/u L Nucleated RBC % (a uto) % Nucleated RBCs # /100WBC PT (12.1-14.9) SECO NDS INR (0.8-1.2) D-Dimer (0-0.59) ug/mIFE U Sodium (136-145) mmol/L Potassium (3.5-5.1) mmol/L Chloride (98-107) mmol/L Carbon Dioxide (22-29) mmol/L Anion Gap (5-19) BUN (8-23) mg/dL Creatinine (0.7-1.2) mg/dL GFR Calculation Glucose (65-115) mg/dL Calculated Osmolal ity (285-295) mOsm/k g Lactic Acid 5.8 H* (0.5-2.2) mmol/L Lactic Acid (Sepsi s) (0.5-2.2) mmol/L Calcium (8.5-10.5) mg/dL Total Bilirubin (0.15-1.2) mg/dL AST (0-40) U/L ALT (0-41) U/L Alkaline Phosphata se (40-130) IU/L Total Protein (6.6-8.7) g/dL Albumin (3.5-5.2) g/dL Globulin (1.3-4.6) g/dL Lipase (13-60) U/L SARS-CoV-2 Ag (Rap id) (Negative) Blood Type O Positive Rho(D) Type Positive Antibody Screen Negative Crossmatch See Detail 06/05/20 06/05/20 06/05/20 Range/Units 09:30 09:30 09:30 WBC 10.5 H (4.0-10.0) 10^3/ uL RBC 2.42 L (4.1-5.3) 10^6/u L Hgb 7.7 L Hct 23.8 L (42.0-52.0) % MCV 98.3 H (80-94) fL MCH 31.8 (28.0-34.0) pg MCHC 32.4 (30.0-36.0) g/dL RDW 13.9 (12.1-15.1) % Plt Count 194 (130-400) 10^3/c mm MPV 11.6 H (7.4-10.4) fL Neut % (Auto) 89.5 % Lymph % (Auto) 7.2 % [place] % (Auto) 2.6 % Eos % (Auto) 0.0 % Baso % (Auto) 0.1 % Neut # (Auto) 9.38 H (1.8-7.7) 10^3/u L Lymph # (Auto) 0.8 (0.8-4.8) 10^3/u L [place] # (Auto) 0.3 (0.2-0.9) 10^3/u L Eos # (Auto) 0.0 (0.0-0.8) 10^3/u L Baso # (Auto) 0.0 (0.0-0.1) 10^3/u L Nucleated RBC % (a uto) 0 % Nucleated RBCs # 0.0 /100WBC PT (12.1-14.9) SECO NDS INR (0.8-1.2) D-Dimer 0.41 (0-0.59) ug/mIFE U Sodium 137 (136-145) mmol/L Potassium 4.5 (3.5-5.1) mmol/L Chloride 103 (98-107) mmol/L Carbon Dioxide 19 L (22-29) mmol/L Anion Gap 19.5 H (5-19) BUN 71 H (8-23) mg/dL Creatinine 1.0 (0.7-1.2) mg/dL GFR Calculation Not Reportable Glucose 262 H (65-115) mg/dL Calculated Osmolal ity 292 (285-295) mOsm/k g Lactic Acid (0.5-2.2) mmol/L Lactic Acid (Sepsi s) (0.5-2.2) mmol/L Calcium 8.1 L (8.5-10.5) mg/dL Total Bilirubin 0.4 (0.15-1.2) mg/dL AST 11 (0-40) U/L ALT 12 (0-41) U/L Alkaline Phosphata se 48 (40-130) IU/L Total Protein 5.8 L (6.6-8.7) g/dL Albumin 3.7 (3.5-5.2) g/dL Globulin 2.1 (1.3-4.6) g/dL Lipase 17 (13-60) U/L SARS-CoV-2 Ag (Rap id) (Negative) Blood Type Rho(D) Type Antibody Screen Crossmatch 06/05/20 06/05/20 06/05/20 Range/Units 09:30 09:57 11:30 WBC (4.0-10.0) 10^3/ uL RBC (4.1-5.3) 10^6/u L Hgb Hct (42.0-52.0) % MCV (80-94) fL MCH (28.0-34.0) pg MCHC (30.0-36.0) g/dL RDW (12.1-15.1) % Plt Count (130-400) 10^3/c mm MPV (7.4-10.4) fL Neut % (Auto) % Lymph % (Auto) % [place] % (Auto) % Eos % (Auto) % Baso % (Auto) % Neut # (Auto) (1.8-7.7) 10^3/u L Lymph # (Auto) (0.8-4.8) 10^3/u L [place] # (Auto) (0.2-0.9) 10^3/u L Eos # (Auto) (0.0-0.8) 10^3/u L Baso # (Auto) (0.0-0.1) 10^3/u L Nucleated RBC % (a uto) % Nucleated RBCs # /100WBC PT 13.30 (12.1-14.9) SECO NDS INR 0.98 (0.8-1.2) D-Dimer (0-0.59) ug/mIFE U Sodium (136-145) mmol/L Potassium (3.5-5.1) mmol/L Chloride (98-107) mmol/L Carbon Dioxide (22-29) mmol/L Anion Gap (5-19) BUN (8-23) mg/dL Creatinine (0.7-1.2) mg/dL GFR Calculation Glucose (65-115) mg/dL Calculated Osmolal ity (285-295) mOsm/k g Lactic Acid (0.5-2.2) mmol/L Lactic Acid (Sepsi s) 4.3 H* (0.5-2.2) mmol/L Calcium (8.5-10.5) mg/dL Total Bilirubin (0.15-1.2) mg/dL AST (0-40) U/L ALT (0-41) U/L Alkaline Phosphata se (40-130) IU/L Total Protein (6.6-8.7) g/dL Albumin (3.5-5.2) g/dL Globulin (1.3-4.6) g/dL Lipase (13-60) U/L SARS-CoV-2 Ag (Rap id) Negative (Negative) Blood Type Rho(D) Type Antibody Screen Crossmatch Discharge Plan Discharge Patient Disposition: Admitted As Inpatient Admit Provider: Saurabh Melendez Clinical Impression: Acute blood loss anemia, Esophageal cancer, Lactic acidosis, Diabetes mellitus, Hypertension, Dysphagia Condition: Stable Interventions: ED Discharge Assessment Last Done: 06/05/20 16:07 ED Charges Last Done: 06/05/20 16:07 Discharge Date/Time: 06/05/20 16:45 Coding Level of Care Code ED 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
--- NOTE | 2020-06-05 09:29 | ECG_ITS ---
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 Measurements Intervals [place] Rate: 103 P: 47 TN: 188 QRS: 16 QRSD: 119 T: 112 QT: 339 QTc: 445 Interpretive Statements SINUS TACHYCARDIA INFERIOR MYOCARDIAL INFARCTION , PROBABLY OLD [40+ ms Q WAVE AND/OR ST/T ABNORMALITY IN II/aVF] MODERATE T-WAVE ABNORMALITY, CONSIDER LATERAL ISCHEMIA [-0.1+ mV T WAVE IN I/aVL/V5/V6] Compared to ECG 05/18/2020 07:05:42 Myocardial infarct finding now present Possible ischemia now present Sinus bradycardia no longer present First degree AV block no longer present Intraventricular conduction delay no longer present Electronically Signed On 06-05-2020 16:21:34 CDT by Dulce Hudson M.D. [id number]
--- NOTE | 2020-06-05 09:51 | PC.NURSE ---
PT ONLY 93% ON ROOM AIR-NURSE APPLIED O2 AT 2L/MIN PER NASAL CANNULA
[2020-06-05 09:57] LABS: Basophils % 0.1 %; Hematocrit 23.8 % (42.0-52.0); Hemoglobin 7.7 g/dL (11.7-16.6); Lymphocytes # 0.8 10^3/uL (0.8-4.8); Lymphocytes % 7.2 %; Mean Corpuscular HGB Conc 32.4 g/dL (30.0-36.0); Mean Corpuscular Hemoglobin 31.8 pg (28.0-34.0); Mean Corpuscular Volume 98.3 fL (80-94); Mean Platelet Volume 11.6 fL (7.4-10.4); Monocytes # 0.3 10^3/uL (0.2-0.9); Monocytes % 2.6 %; Neutrophils # 9.38 10^3/uL (1.8-7.7); Neutrophils % 89.5 %; Nucleated Red Blood Cells % 0 %; Platelet Count 194 10^3/cmm (130-400); Red Blood Count 2.42 10^6/uL (4.1-5.3); Red Cell Distribution Width 13.9 % (12.1-15.1); White Blood Count 10.5 10^3/uL (4.0-10.0)
[2020-06-05 10:18] LABS: Alanine Aminotransferase 12 U/L (0-41); Albumin Level 3.7 g/dL (3.5-5.2); Alkaline Phosphatase 48 IU/L (40-130); Anion Gap 19.5 (5-19); Aspartate Amino Transferase 11 U/L (0-40); Blood Urea Nitrogen 71 mg/dL (8-23); Calcium 8.1 mg/dL (8.5-10.5); Carbon Dioxide 19 mmol/L (22-29); Chloride 103 mmol/L (98-107); Globulin 2.1 g/dL (1.3-4.6); Glucose 262 mg/dL (65-115); Lipase 17 U/L (13-60); Osmolality Calculated 292 mOsm/kg (285-295); Potassium 4.5 mmol/L (3.5-5.1); Sodium 137 mmol/L (136-145); Total Bilirubin 0.4 mg/dL (0.15-1.2); Total Protein 5.8 g/dL (6.6-8.7)
[2020-06-05] MEDS: ondansetron 2 mg/ML SDV 2 mL 4 MG IVP (10:28)
[2020-06-05 10:32] LABS: Lactic Sepsis W/Reflex 5.8 mmol/L (0.5-2.2)
--- NOTE | 2020-06-05 10:34 | CTR_ITS ---
PROCEDURE INFORMATION: Exam: CT Abdomen And Pelvis With Contrast Exam date and time: 06/05/2020 10:48 AM Age: 85 years old Clinical indication: Other: Blood in stools; Additional info: Abd pain/gi bleed TECHNIQUE: Imaging protocol: Computed tomography of the abdomen and pelvis with intravenous contrast. Radiation optimization: All CT scans at this facility use at least one of these dose optimization techniques: automated exposure control; mA and/or kV adjustment per patient size (includes targeted exams where dose is matched to clinical indication); or iterative reconstruction. Contrast material: OMNI 300; Contrast volume: 95 ml; Contrast route: INTRAVENOUS (IV); COMPARISON: CT Abdomen/Pelvis o [id number] 03/30/2020 9:44 AM RADIATION DOSE METRICS: Total DLP (mGy-cm): 484.66 FINDINGS: Lungs: Emphysematous change and interstitial prominence. Dilatation of the distal esophagus. AICD. Liver: Stable hepatic cysts, the largest measuring 1.8 cm. Gallbladder and bile ducts: No cholelithiasis or biliary ductal dilatation. Pancreas: No pancreatic mass or ductal dilatation. Spleen: No splenomegaly. Adrenals: Unremarkable adrenals. Kidneys and ureters: Renal vascular calcifications. 1 mm nonobstructing left renal calculus. Stable 10 mm cyst in the superior left kidney. Mild bilateral infiltration of perinephric fat. Stomach and bowel: Dilatation of the fluid and air-filled stomach with mild antro duodenal wall thickening. Scattered diverticula, with mild infiltration of pericolonic fat about the descending colon, consistent with low-grade diverticulitis in the appropriate clinical setting. Dilated stool-filled rectum measuring 5.6 cm in diameter. Appendix: Appendix not visualized. Intraperitoneal space: No significant free fluid. Vasculature: Prominent vascular calcification. No abdominal aortic aneurysm. Lymph nodes: Subcentimeter lymph nodes. Bladder: Bladder wall thickening and lobulated morphology. Reproductive: Calcifications in the enlarged prostate producing extrinsic compression of the bladder base. Bones/joints: Osteopenia. Degenerative change and disc bulging. Soft tissues: 6 mm subcutaneous calcification in the right anterior abdominal wall. CT/CT abdomen pelvis w con* [id number] IMPRESSION: 1. Dilatation of the fluid and air-filled stomach with mild antroduodenal wall thickening. 2. Scattered diverticula, with mild infiltration of pericolonic fat about the descending colon, consistent with low-grade diverticulitis in the appropriate clinical setting. 3. Additional findings as described above. Radiation Dose CTDIVOL = (mGy): DLP = 484.66 (mGy-cm)
[2020-06-05 10:38] LABS: D Dimer 0.41 ug/mIFEU (0-0.59)
[2020-06-05 10:48] LABS: Reflex Lactate Order REFLEX LACTIC ORDERD
[2020-06-05] MEDS: metroNIDAZOLE IV 500 MG/100 ML PREMIX 100 MG IV ×2 (10:49→19:22)
[2020-06-05 10:53] LABS: SARS Covid-2 Antigen Negative (Negative)
--- NOTE | 2020-06-05 11:14 | PC.NURSE ---
pt off unit to CT
[2020-06-05] MEDS: iohexol 300 mg/mL 100 mL Btl IV (11:19)
[2020-06-05] MEDS: ciprofloxacin 400 MG/200 ML PREMIX 200 MG IV ×2 (12:04→22:55)
[2020-06-05] MEDS: pantoprazole 40 mg SDV IVP ×2 (12:04→23:43)
[2020-06-05 12:15] LABS: Lactic Acid level (Lactate) 4.3 mmol/L (0.5-2.2)
[2020-06-05 12:26] LABS: Add Urine Microscopic? NO
[2020-06-05] MEDS: morphine 4 mg/mL SDV 1 mL 2 MG IVP (12:32)
[2020-06-05 12:35] LABS: Bilirubin Urine Neg (Negative); Blood Urine Neg (Negative); Glucose Urine UA Trace (Normal); Ketones Urine 1+ (Negative); Leukocyte Esterase Urine Negative (Negative); Nitrate Urine Negative (Negative); Protein Urine Neg (Negative); Specific Gravity, Urine 1.005 (1.005-1.030); Urine Appearance Clear (CLEAR); Urine Color Straw (Yellow); Urobilinogen Urine Norm (Negative); pH Urine 5 (5-7)
--- NOTE | 2020-06-05 16:54 | PM.HP ---
Providers/Chief Complaint Admitting Physician: Saurabh Melendez Primary Care Provider: Tray Mcclellan DO Chief Complaint: BLOODY STOOL AND N/V POST CHEMO History of Present Illness Bernard Alonzo is a 85 year old gentleman with esophageal cancer coming in with melanous stools and emesis and lack of oral intake at least the last several days, but with severe symptoms of nausea, vomiting, and reduced food intake tolerance going on for at least several weeks, maybe longer. He had recently started on chemotherapy for his cancer. He has also been undergoing evaluation to start radiation therapy. He has history of coronary disease and MN, stenting, and so takes aspirin 325 mg as well as Plavix, he does also say he has been taking ibuprofen for pain. He says that when he was assessed by GI physician at the time of diagnosis of the mass, he was started on pantoprazole, but says that he has not had the ability to take very much of it due to the recurrent nausea and vomiting. He has been having epigastric pain/discomfort, which is been worse in the last several 2 days. More recently also started having some left lower quadrant pain as well. In ER he is noted to have lactic acidosis of 5.8. Hemoglobin down to 7.7 from 13.2 on 06/02. Contrast CT scan with finding of dilated and air-filled stomach with mild antral duodenal wall thickening. Per discussion with radiology major branches of mesenteric arteries are open, although this is not a CT angiogram protocol study. Noted low-grade diverticulitis. He received a dose of IV pantoprazole, and started on Cipro and Flagyl in addition to pain and nausea medications. Patient provides much of his known history, but son at the bedside clarifies a number of details. He states his father has pretty much not eaten anything for about 2 days. Review of Systems Const: Denies: fever(s), chills, body aches or malaise Eyes: Denies: change in vision or eye redness ENMT: Denies: throat pain, oral sores or ear or mastoid pain Card: Denies: chest pain, edema, pre-syncope or dyspnea on exertion Resp: Denies: dyspnea, productive cough, change in phlegm color or hemoptysis GI: Reports: abdominal pain, nausea, vomiting and melena; Denies: diarrhea, constipation or hematochezia : Denies: flank pain, difficulty urinating, urinary frequency or hematuria Musc: Denies: back pain, joint swelling or joint redness Skin/Breast: Denies: rash, sores or new lesions Neuro: Denies: headache(s), numbness in extremities, weakness in extremities, dizziness, confusion or seizure-like activity Endo: Denies: polyuria or polydipsia Tate/Lymph: Denies: easy bleeding or purpura All/Imm: Denies: urticaria, throat swelling or tongue swelling Medications/Allergies Home Medications Medication Instructions Recorded Confirmed Last Taken Type carvedilol 6.25 mg PO BID #0 tab 01/12/20 06/05/20 06/03/20 Rx cholecalciferol (vitamin D3) 25 mcg PO DAILY 01/12/20 06/05/20 06/03/20 History [Vitamin D3] clopidogrel [Plavix] 75 mg PO DAILY 01/12/20 06/05/20 06/03/20 History finasteride 5 mg PO DAILY 01/12/20 06/05/20 06/03/20 History hydrocodone-acetaminophen 1 tab PO Q6H PRN 01/12/20 06/05/20 06/04/20 History ibuprofen [Advil] 400 mg PO QAM 01/12/20 06/05/20 06/04/20 History metformin 500 mg PO DAILY 01/12/20 06/05/20 06/03/20 History simvastatin 40 mg PO DAILY 01/12/20 06/05/20 06/03/20 History aspirin 325 mg PO DAILY 05/17/20 06/05/20 06/03/20 History pantoprazole 40 mg PO DAILY 05/18/20 06/05/20 06/04/20 History Allergies Allergy/AdvReac Type Severity Reaction Status Date / Time No Known Allergies Allergy Verified 06/05/20 11:09 PFSH Acute PFSH: Medical History (Updated 06/05/20 @ 17:21 by Saurabh Melendez MD) Abdominal wall hernia BPH (benign prostatic hyperplasia) CAD (coronary artery disease) Diabetes mellitus Esophageal cancer Hypertension Surgical History (Updated 06/05/20 @ 17:14 by Saurabh Melendez MD) H/O bilateral inguinal hernia repair History of foot surgery S/P appendectomy Status post placement of cardiac pacemaker Family History Other Cancer Denies family history of Anesthesia complication Bleeding disorder Social History Quit status (tobacco): has quit using tobacco Former quit date comment: 20 ya Alcohol intake: former Former alcohol use details: Quit in September. Formerly heavy drinker Substance/Drug Use: never Lives independently: Yes Household members: spouse Marital status: Vitals/I&O/Wt Last Vital Signs Temp 97.6 F 06/05/20 09:12 Pulse 95 06/05/20 16:07 Resp 11 L 06/05/20 16:07 BP 100/44 06/05/20 16:07 Pulse Ox 98 06/05/20 16:07 06/05/20 06/05/20 06/05/20 06:59 14:59 22:59 Intake Total 300 / 300 Balance 300 / 300 Weight last 48 hrs Weight 70.307 kg Physical Exam Const: COMMON NORMALS: no acute distress and patient oriented x3 HENMT: COMMON NORMALS: oropharynx normal Neck/C-Spine: COMMON NORMALS: no JVD Chest: OTHER: Chest PPM Resp: COMMON NORMALS: normal respiratory effort and clear to auscultation bilaterally AUSCULTATION: clear to auscultation bilaterally Cardio: COMMON NORMALS: no JVD, regular rhythm, S1 normal heart sound present, S2 normal heart sound present and No murmurs present (Cardio) RHYTHM: regular rhythm HEART SOUNDS: S1 normal heart sound present and S2 normal heart sound present GI: COMMON NORMALS: Normal to inspection, nondistended, normoactive bowel sounds present, Soft to palpation and non-tender (During my examination minimally if at all tender, epigastric region) PALPATION: Yes Soft to palpation Extremity: COMMON NORMALS: no joint enlargement and no pedal edema Neuro: COMMON NORMALS: patient oriented x3 and moves all extremities Skin: COMMON NORMALS: no rashes or lesions noted GENERAL SKIN EXAM: no rashes or lesions noted Data : 06/05/20 09:30 06/05/20 09:30 A&P Assessment and plan (1) GI bleeding: Melanotic stools, also reports vomiting up some dark contents intermittently the last several days. History of esophageal cancer, started on chemotherapy. It appears radiation therapy has been set up. He does also take aspirin 325 mg (as well as Plavix), and ibuprofen 400 for pain. Was started on Protonix after his EUS by gastroenterology, but says has not had a chance to take this very much due to nausea and vomiting. Discussed with him and his son regarding differential diagnosis of for sources of bleeding. He does appear that upper GI is more likely source of bleeding due to dark stools, dark vomiting. Diverticulitis noted on CT scan is possibly an unrelated finding. It is possible he is bleeding at or around malignancy site. On CT scan is noted to have some thickening of antral duodenal wall thickening. PUD, gastritis are possibility. With significant lactic acidosis we also considered ischemic bowel with ER physician, and discussed with patient and family including seriousness of such a condition. At this time this appears to be less likely given absolutely soft belly, minimal tenderness during exam, the lack of additional findings on CT, and other explanations for his lactic acidosis. Discussion with the right proximal mesenteric arteries are open, although difficult to say more distally. Discussed with patient and son that CT with contrast was not done as CTA protocol. They are agreeable to monitor for symptoms at this time, and in case there is any rise in suspicion to then perform CTA. He does also have history of heavy alcohol intake, although quit in September. Alcohol should not be contributing gastritis, but we did consider with family also whether or not there may be varicose bleed in case of undiagnosed cirrhosis. They do say he has had endoscopic evaluation, but are not sure what kind whether it was ultrasound or EGD. At this time given the rapid decline in hemoglobin, 3 days ago was 13.2, currently 7.2 will request for 1 unit PBC transfusion. Continue 40 mg Protonix IV twice daily. Reassess hemoglobin. Appreciate surgical assessment. Admit to ICU. Keep n.p.o. Continue IV hydration. Status: Acute (2) Nausea & vomiting: Intractable nausea and vomiting. Suspect NSAIDs and aspirin induced gastritis. Could be secondary to malignancy, recent chemotherapy. N.p.o. Symptomatic treatment with Zofran, morphine. Protonix as above. He has not eaten anything in about 2 days per son. Continue IV hydration. This has been particularly bad in the last 2 days, however, appears this is a more longstanding problem over weeks. If not improving, may need to consider alternative means of nutrition. Status: Acute (3) Esophageal cancer: Recently started on chemotherapy. Radiation therapy is being set up. Continue follow-up with Dr. Bhagat. Status: Acute (4) Acute blood loss anemia: As above. Status: Acute (5) Lactic acidosis: Lactic acid up to 5.8, improved down to 4.3 with some IV fluid. Discussed with him and his son. Discussed possibly of etiology for this, including hypoperfusion secondary to lack of oral intake in the last several days, nausea, vomiting, perhaps contribution from acute infection secondary to diverticulitis, although otherwise does not fit sepsis criteria. Check blood culture. We discussed also other more dangerous etiologies including low possibility of ischemic bowel. Allergic contribution may be due to chronic liver disease given he used to be a heavy drinker, recently quit in September. Does not have known liver cirrhosis. Liver parameters otherwise are normal. Will check INR. Alternatively also may be type B lactic acidosis due to his malignancy. Alternatively also may be lactic acidosis due to metformin. Will discontinue at this time. Status: Acute (6) Diverticulitis: Low-grade diverticulitis. No sepsis. Perhaps contributing to his poor appetite, nausea, vomiting. Continue Cipro, Flagyl. Status: Acute (7) Port-A-Cath in place: Status: Acute Additional A&P Information Diabetes: DC metformin. Mild sliding scale. CAD: Hold aspirin, Plavix HTN BPH Attestations Medical Necessity Statement*: Admission of over 2 midnights is going to be needed for assessment of management of acute GI bleed, diverticulitis, intractable nausea and vomiting, dehydration, lack of oral intake in the gentleman with underlying esophageal cancer, recently started on chemotherapy. Coding Level of Care Code Acute Is Analyst for [facility] Diagnoses GI bleeding K92.2 Nausea & vomiting R11.2 Esophageal cancer C15.9 Acute blood loss anemia D62 Lactic acidosis E87.2 Diverticulitis K57.92 Port-A-Cath in place Z95.828
[2020-06-05 17:17] LABS: Hemoglobin 7.2 g/dL (11.7-16.6)
[2020-06-05] MEDS: D5-NS 0.45% + KCL 20 mEq 20 MEQ/1,000 ML BAG 100 MEQ IV (17:55)
[2020-06-05 18:11] LABS: Glucose Point of Care 139 mg/dL (70-110)
--- NOTE | 2020-06-05 18:39 | PM.CONSULT ---
Providers/Reason For Consult Consulting Physican/Specialty*: General Surgery Boubacar Mancilla MD Reason for Consult*: Esophageal carcinoma with melena, hematemesis and dysphagia. 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 He has just started chemotherapy but radiation treatment is planned for start on Sunday (2 days from now). After the patient's first chemotherapy treatment several days ago, he said the following day he started passing dark black stool and also had some vomiting of very black contents. This persisted yesterday and he came into the emergency room today. He was found to have a drop in his hemoglobin. He has been admitted to the ICU for close monitoring. The patient is on daily Plavix and also full sized aspirin at home for history of CAD and a prior cardiac stent placement. In addition, he says he has been in the habit of taking 400 mg of ibuprofen twice daily for years for old age. He stopped all of these medications 2 days ago when he started having the evidence of possible GI bleeding. The patient reports progressive dysphagia. He has gotten to the point where he is having a hard time swallowing solid foods, but even sometimes liquids. Review of Systems General: Reports: 10 or more systems reviewed and unremarkable except in HPI and below Const: Reports: change in weight (Weight loss); Denies: fever(s) GI: Reports: abdominal pain, nausea, vomiting, hematemesis (dark black vomitus), dysphagia and melena Meds/Allergies Home Medications and Allergies Home Medications Medication Instructions Recorded Confirmed Last Taken Type carvedilol 6.25 mg PO BID #0 tab 01/12/20 06/05/20 06/03/20 Rx cholecalciferol (vitamin D3) 25 mcg PO DAILY 01/12/20 06/05/20 06/03/20 History [Vitamin D3] clopidogrel [Plavix] 75 mg PO DAILY 01/12/20 06/05/20 06/03/20 History finasteride 5 mg PO DAILY 01/12/20 06/05/20 06/03/20 History hydrocodone-acetaminophen 1 tab PO Q6H PRN 01/12/20 06/05/20 06/04/20 History ibuprofen [Advil] 400 mg PO QAM 01/12/20 06/05/20 06/04/20 History metformin 500 mg PO DAILY 01/12/20 06/05/20 06/03/20 History simvastatin 40 mg PO DAILY 01/12/20 06/05/20 06/03/20 History aspirin 325 mg PO DAILY 05/17/20 06/05/20 06/03/20 History pantoprazole 40 mg PO DAILY 05/18/20 06/05/20 06/04/20 History Allergies Allergy/AdvReac Type Severity Reaction Status Date / Time No Known Allergies Allergy Verified 06/05/20 11:09 Current Medications Current Medications Generic Name Dose Route Start Last Admin Trade Name Freq PRN Reason Stop Dose Admin Potassium Chloride/Dextrose/Sod Cl 20 meq in 1,000 mls @ 100 mls/hr 06/05/20 16:46 06/05/20 17:55 D5-Ns 0.45% + Kcl 20 Meq IV 100 mls/hr .Q10H ALICE Administration Insulin Aspart 0 unit 06/05/20 18:00 06/05/20 18:04 Novolog SUBCUT Not Given WM&BEDTIME ALICE Protocol PFSH Acute PFSH: Medical History (Updated 06/05/20 @ 18:53 by Boubacar Mancilla MD) BPH (benign prostatic hyperplasia) CAD (coronary artery disease) Diabetes mellitus Diverticulosis Esophageal cancer Hypertension Surgical History (Updated 06/05/20 @ 18:55 by Boubacar Mancilla MD) H/O bilateral inguinal hernia repair H/O exploratory laparotomy I swallowed a safety pin when I was a kid and they had to open me up to get it out History of foot surgery R ankle fracture History of incisional hernia repair x 2 Port-A-[address] in [address] Right subclavian S/P appendectomy Status post coronary artery stent placement x 1 2006 Status post placement of cardiac pacemaker Family History Other Cancer Denies family history of Anesthesia complication Bleeding disorder Social History (Updated 06/05/20 @ 19:00 by Boubacar Mancilla MD) Quit status (tobacco): has quit using tobacco Former quit date comment: 1979 Alcohol intake: former Former alcohol use details: Quit in September. Formerly heavy drinker Substance/Drug Use: never Lives independently: Yes Household members: spouse Marital status: Vitals/I&O/Wt Last Vital Signs Temp 97.6 F 06/05/20 09:12 Pulse 95 06/05/20 18:00 Resp 12 06/05/20 18:00 BP 122/78 06/05/20 18:00 Pulse Ox 100 06/05/20 18:00 06/05/20 06/05/20 06/05/20 06:59 14:59 22:59 Intake Total 300 / 300 Balance 300 / 300 Weight last 48 hrs Weight 155 lb Physical Exam Narrative: EXAM NARRATIVE: The patient was encountered in his room in the intensive care unit. He does not appear to be in any distress. The pupils seem equal. No carotid bruits are heard. The lungs are clear anteriorly. The heart is regular. The patient has a pacemaker in a left subclavian location and a Port-A-Cath in a right subclavian location. The abdomen reveals a vertical scar from the xiphoid process down to a level just below the umbilicus. He has a somewhat oblique scar in the right inguinal region. He has minimal tenderness in the epigastrium. I cannot feel any obvious masses. The extremities reveal no edema. The patient can move all limbs to command. Data Imaging^: CT Abd/Pel: Radiologist's impression: CT scan abdomen/pelvis 06/05/2020 iMPRESSION: 1. Dilatation of the fluid and air-filled stomach with mild antroduodenal wall thickening. 2. Scattered diverticula, with mild infiltration of pericolonic fat about the descending colon, consistent with low-grade diverticulitis in the appropriate clinical setting. A&P Assessment and plan (1) Esophageal cancer: The patient has known distal esophageal carcinoma which is currently being treated with chemotherapy and radiation is planned to start on Sunday. Status: Acute (2) Hematemesis: The patient describes this as very black in color. This is almost certainly coming from the area of his esophageal tumor. Status: Acute (3) Melena: Likewise, I suspect this is coming from the upper GI source as above. He has no clinical evidence of diverticulitis, and I suspect this would result in more clinical evidence of hematochezia if it were any kind of an ongoing factor. Status: Acute (4) NSAID long-term use: The patient has been in the habit of taking 400 mg of ibuprofen twice daily for years. The last time he did this was 2 days ago. He is also on Plavix at home, but stopped this at the same time as his ibuprofen. All of this could certainly be playing a role in his recent onset of bleeding. These medications were all currently held. Status: Acute (5) Dysphagia: This has been a progressive problem for the patient. A feeding tube has been discussed with him in oncology in the past, but he originally was going to try to avoid it. He says he has gotten to the point where he is having enough difficulty swallowing that he would probably elect to proceed with a feeding tube placement, knowing that the initiation of radiation treatment will probably even temporarily worsen his current symptoms. We discussed PEG tubes and open gastrostomies in some detail. His CAT scan shows that his stomach would be in a good position for PEG tube placement; the only issue would be making sure we can get through the area of the tumor from above endoscopically. Given the fact that the patient just stopped his Plavix and ibuprofen a couple days ago, I told him I would probably try to delay placement of this for another day or 2, but I do not want to see him have his radiation treatment delayed, as that may be the best treatment for any ongoing bleeding at the tumor site. Status: Acute Consult Attestations Medical Necessity Statement: See admitting service's notation. 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
[2020-06-05 19:34] LABS: INR 0.98 (0.8-1.2)
[2020-06-05] MEDS: sodium chloride 0.9% (100 ml) 100 ML (19:59)
[2020-06-05 20:43] LABS: Glucose Point of Care 178 mg/dL (70-110)
[2020-06-06] VITALS (39 sets, daily range): BP systolic 93–136; BP diastolic 37–88; PULSE 67–94; RESP 2–22; TEMP 36.7–37.2; O2SAT 93–100
--- NOTE | 2020-06-06 00:41 | PC.NURSE ---
Transfused ordered 1 unit PRBC, denies N/V and dizziness, no tarry stools, previous Hgb 7.2 current Hgb 7.4, reported to Dr. Chang
--- NOTE | 2020-06-06 01:29 | PC.NURSE ---
One moderate sized thick black tarry stool observed
[2020-06-06] MEDS: sodium chloride 0.9% (100 ml) 100 ML (02:15)
[2020-06-06] MEDS: metroNIDAZOLE IV 500 MG/100 ML PREMIX 100 MG IV ×3 (03:41→18:19)
[2020-06-06] MEDS: D5-NS 0.45% + KCL 20 mEq 20 MEQ/1,000 ML BAG 100 MEQ IV ×2 (04:01→18:19)
--- NOTE | 2020-06-06 04:04 | PC.NURSE ---
1500 C/O not feeling right described pressure in abdomen, denied abdominal tenderness no distention noted Blood transfusion stopped, vs WNL, denied angina SOB and itching, Dr. Chang at bedside okayed resuming blood transfusion, reported no symptoms mentioned in this note at this time
[2020-06-06 05:17] LABS: Basophils % 0.1 %; Eosinophils % 0.1 %; Hematocrit 27.2 % (42.0-52.0); Hemoglobin 8.5 g/dL (11.7-16.6); Lymphocytes # 1.1 10^3/uL (0.8-4.8); Lymphocytes % 12.1 %; Mean Corpuscular HGB Conc 31.3 g/dL (30.0-36.0); Mean Corpuscular Hemoglobin 30.8 pg (28.0-34.0); Mean Corpuscular Volume 98.6 fL (80-94); Mean Platelet Volume 11.2 fL (7.4-10.4); Monocytes # 0.3 10^3/uL (0.2-0.9); Monocytes % 3.2 %; Neutrophils # 7.43 10^3/uL (1.8-7.7); Neutrophils % 83.9 %; Nucleated Red Blood Cells % 0 %; Platelet Count 152 10^3/cmm (130-400); Red Blood Count 2.76 10^6/uL (4.1-5.3); Red Cell Distribution Width 14.1 % (12.1-15.1); White Blood Count 8.9 10^3/uL (4.0-10.0)
--- NOTE | 2020-06-06 05:46 | PC.NURSE ---
Lab notified two times via phone of Hgb on chart dating 2 on 06/05/20 when it was drawn at 0003 on 06/06/20
--- NOTE | 2020-06-06 05:50 | PC.NURSE ---
2nd unit of PRBC transfused, tolerated well
[2020-06-06 05:51] LABS: Hemoglobin 7.4 g/dL (11.7-16.6)
[2020-06-06 06:01] LABS: Alanine Aminotransferase 9 U/L (0-41); Albumin Level 3.3 g/dL (3.5-5.2); Alkaline Phosphatase 38 IU/L (40-130); Anion Gap 12.5 (5-19); Aspartate Amino Transferase 10 U/L (0-40); Blood Urea Nitrogen 28 mg/dL (8-23); Calcium 7.9 mg/dL (8.5-10.5); Carbon Dioxide 23 mmol/L (22-29); Chloride 110 mmol/L (98-107); Globulin 1.9 g/dL (1.3-4.6); Glucose 133 mg/dL (65-115); Osmolality Calculated 291 mOsm/kg (285-295); Potassium 4.5 mmol/L (3.5-5.1); Sodium 141 mmol/L (136-145); Total Bilirubin 0.9 mg/dL (0.15-1.2); Total Protein 5.2 g/dL (6.6-8.7)
[2020-06-06 07:49] LABS: Glucose Point of Care 134 mg/dL (70-110)
[2020-06-06 08:32] LABS: H. Pylori IgG Antibody Negative (Negative)
--- NOTE | 2020-06-06 09:15 | P.PN_ITS ---
Subjective Subjective: Interval history: He says today he is doing little bit better. He had a bowel movement last night which was still dark/black. No further vomiting. He is not bothered by abdominal pain today. Vitals/I&O/Wt Last Vital Signs Temp 98.9 F 06/06/20 07:00 Pulse 77 06/06/20 08:00 Resp 18 06/06/20 08:00 BP 124/58 06/06/20 08:00 Pulse Ox 97 06/06/20 08:00 06/05/20 06/06/20 06/06/20 22:59 06:59 14:59 Intake Total 530 / 830 1450 / 2280 Output Total 350 / 350 Balance 530 / 830 1100 / 1930 Weight last 48 hrs Weight 71.033 kg Weight 70.307 kg Physical Exam Const: COMMON NORMALS: no acute distress and patient oriented x3 HENMT: COMMON NORMALS: oropharynx normal Neck/C-Spine: COMMON NORMALS: no JVD Chest: OTHER: Chest PPM Resp: COMMON NORMALS: normal respiratory effort and clear to auscultation bilaterally AUSCULTATION: clear to auscultation bilaterally Cardio: COMMON NORMALS: no JVD, regular rhythm, S1 normal heart sound present, S2 normal heart sound present and No murmurs present (Cardio) RHYTHM: regular rhythm HEART SOUNDS: S1 normal heart sound present and S2 normal heart sound present GI: COMMON NORMALS: Normal to inspection, nondistended, normoactive bowel sounds present, Soft to palpation and non-tender (During my examination minimally if at all tender, epigastric region) PALPATION: Yes Soft to palpation Extremity: COMMON NORMALS: no joint enlargement and no pedal edema Neuro: COMMON NORMALS: patient oriented x3 and moves all extremities Skin: COMMON NORMALS: no rashes or lesions noted GENERAL SKIN EXAM: no rashes or lesions noted Data : 06/06/20 04:51 06/06/20 04:51 Micro: Microbiology 06/05/20 04:51 Blood Culture - Preliminary Blood SPECIMEN COLLECTED 06/05/20 00:03 Blood Culture - Preliminary Blood SPECIMEN COLLECTED A&P Assessment and plan (1) GI bleeding: Received additional 1 unit PBC transfusion overnight due to inadequate response after the first unit, hemoglobin subsequently still 7.2, but later did respond well up to 8.5. Another melanotic stool last night. But no further vomiting. Appreciate surgical assessment. Continue PPI. Reassess hemoglobin. Transfuse if dropping again. Continue to hold aspirin, Plavix. Discontinue ibuprofen. Follow-up H. pylori studies. Was started on Protonix after his EUS by gastroenterology, but says has not had a chance to take this very much due to nausea and vomiting. Discussed with him and his son regarding differential diagnosis of for sources of bleeding. He does appear that upper GI is more likely source of bleeding due to dark stools, dark vomiting. Diverticulitis noted on CT scan is possibly an unrelated finding. It is possible he is bleeding at or around malignancy site. On CT scan is noted to have some thickening of antroduodenal wall thickening. PUD, gastritis are possibility. With significant lactic acidosis we also considered ischemic bowel with ER physician, and discussed with patient and family including seriousness of such a condition. At this time this appears to be less likely given absolutely soft belly, minimal tenderness during exam, the lack of additional findings on CT, and other explanations for his lactic acidosis. Discussion with the right proximal mesenteric arteries are open, although difficult to say more distally. Discussed with patient and son that CT with contrast was not done as CTA protocol. They are agreeable to monitor for symptoms at this time, and in case there is any rise in suspicion to then perform CTA. Suspicion continues to be low as his abdomen remains soft, and he remained stable. He does also have history of heavy alcohol intake, although quit in September. Alcohol should not be contributing gastritis, but we did consider with family also whether or not there may be varicose bleed in case of undiagnosed cirrhosis, although this is less likely given lack of significant metabolic abnormalities, normal INR. They do say he has had endoscopic evaluation, but are not sure what kind whether it was ultrasound or EGD. At this time given the rapid decline in hemoglobin, 3 days ago was 13.2, c urrently 7.2 will request for 1 unit PBC transfusion. Appreciate surgical assessment. Keep n.p.o. Continue IV hydration. Status: Acute (2) Nausea & vomiting: This appears to have improved, however, still question whether he will be able to resume oral diet, and he says has been bothered by significant dysphagia to the point where he is considering feeding tube. Intractable nausea and vomiting. Suspect NSAIDs and aspirin induced gastritis. Could be secondary to malignancy, recent chemotherapy. N.p.o. Symptomatic treatment with Zofran, morphine. Protonix as above. He has not eaten anything in about 2 days per son. Continue IV hydration. This has been particularly bad in the last 2 days, however, appears this is a more longstanding problem over weeks. If not improving, may need to consider alternative means of nutrition. Status: Acute (3) Esophageal cancer: Recently started on chemotherapy. Radiation therapy is being set up. Continue follow-up with Dr. Bhagat. Status: Acute (4) Acute blood loss anemia: As above. Status: Acute (5) Lactic acidosis: Lactic acid up to 5.8, improved down to 4.3 with some IV fluid. At this time he remains stable, not bothered by mental pain, abdomen is soft. Suspicion for ischemic bowel is low. Discussed with him and his son on admission. Discussed possibly of etiology for this, including hypoperfusion secondary to lack of oral intake in the last several days, nausea, vomiting, perhaps contribution from acute infection secondary to diverticulitis, although otherwise does not fit sepsis criteria. Check blood culture. We discussed also other more dangerous etiologies including low possibility of ischemic bowel. Allergic contribution may be due to chronic liver disease given he used to be a heavy drinker, recently quit in September. Does not have known liver cirrhosis. Liver parameters otherwise are normal. INR is normal. Cirrhosis appears less likely, though does not exclude some underlying early fibrosis. Alternatively also may be type B lactic acidosis due to his malignancy. Alternatively also may be lactic acidosis due to metformin. Discontinue. Status: Acute (6) Diverticulitis: Low-grade diverticulitis. No sepsis. Perhaps contributing to his poor appetite, nausea, vomiting. Continue Cipro, Flagyl. Status: Acute (7) Port-A-Cath in place: Status: Inactive Additional A&P Information Diabetes: DC metformin. Mild sliding scale. CAD: Hold aspirin, Plavix HTN BPH Attestations Medical Necessity Statement*: Continue admission for assessment management of GI bleeding, intractable nausea, vomiting, dysphagia with lack of oral intake of food or drink in the setting of esophageal cancer. Diverticulitis. Coding Level of Care Code Acute Glass Cal[facility]ator for [facility] Diagnoses GI bleeding K92.2 Nausea & vomiting R11.2 Esophageal cancer C15.9 Acute blood loss anemia D62 Lactic acidosis E87.2 Diverticulitis K57.92 Port-A-Cath in place Z95.828
--- NOTE | 2020-06-06 10:04 | PM.PN ---
Subjective Subjective: Interval history: The patient has no complaints today. He had a bowel movement and says that it looked less dark than the ones he has had over the past couple of days. He says he would like to proceed with a PEG tube placement. We were initially thinking about doing this tomorrow, but he was hoping to get it done today so that he can start his radiation treatment tomorrow at 8 AM as scheduled. Vitals/I&O/Wt Last Vital Signs Temp 98.9 F 06/06/20 07:00 Pulse 77 06/06/20 08:00 Resp 18 06/06/20 08:00 BP 124/58 06/06/20 08:00 Pulse Ox 97 06/06/20 08:00 06/05/20 06/06/20 06/06/20 22:59 06:59 14:59 Intake Total 530 / 2280 1450 / 2280 Output Total 350 / 350 Balance 530 / 1930 1100 / 1930 Weight last 48 hrs Weight 156 lb 9.6 oz Weight 155 lb Physical Exam Narrative: EXAM NARRATIVE: No significant change. 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 Status: Acute (2) Hematemesis: The patient describes this as very black in color, although his last bowel movement was not as dark. This is almost certainly coming from the area of his esophageal tumor, but given the CAT scan changes involving the antrum and duodenum along with the ongoing NSAID use, gastritis/duodenitis is also a possibility. Serum H. pylori antibody results are pending. Status: Acute (3) Melena: Likewise, I suspect this is coming from the upper GI source(s) as above. I do not know that I necessarily agree with the radiographic diagnosis of mild diverticulitis. Status: Acute (4) NSAID long-term use: The patient has been in the habit of taking 400 mg of ibuprofen twice daily for years. The last time he did this was 2 days prior to admission. He is also on Plavix at home, but stopped this at the same time as his ibuprofen. All of this could certainly be playing a role in his recent onset of bleeding. These medications are all currently held. Status: Acute (5) Dysphagia: This has been a progressive problem for the patient. A feeding tube has been discussed with him in oncology in the past, but he originally was going to try to avoid it. He says he has gotten to the point where he is having enough difficulty swallowing that he would probably elect to proceed with a feeding tube placement, knowing that the initiation of radiation treatment will probably even temporarily worsen his current symptoms. We discussed PEG tubes and open gastrostomies in some detail. His CAT scan shows that his stomach appears to be in a good position for PEG tube placement; the only issue would be making sure we can get through the area of the tumor from above endoscopically. Given the fact that the patient just stopped his Plavix and ibuprofen a couple days prior to admission, I told him at that time I would probably try to delay placement of this for another day or 2, but I do not want to see him have his radiation treatment delayed, as that may be the best treatment for any ongoing bleeding at the tumor site. We will make arrangements for an attempted PEG tube placement later today. Status: Acute Attestations Medical Necessity Statement*: See admitting service's notation. Coding Level of Care Code Acute Granite Polisher Machine for [facility] Diagnoses Esophageal cancer C15.9 Hematemesis K92.0 Melena K92.1 NSAID long-term use Z79.1 Dysphagia R13.10
[2020-06-06] MEDS: atorvastatin 40 mg Tablet 20 MG PO (10:46)
[2020-06-06] MEDS: finasteride 5 mg Tablet PO (10:48)
[2020-06-06] MEDS: pantoprazole 40 mg SDV IVP ×2 (10:48→23:46)
[2020-06-06] MEDS: ciprofloxacin 400 MG/200 ML PREMIX 200 MG IV ×2 (10:49→23:46)
[2020-06-06 10:56] LABS: Glucose Point of Care 128 mg/dL (70-110)
[2020-06-06 11:45] LABS: Hemoglobin 7.9 g/dL (11.7-16.6)
--- NOTE | 2020-06-06 12:00 | ANES.PREANE2 ---
Pre-Anesthetic Assessment Pre-Anesthetic Assessment: Height/Weight: Height 1.68 m Weight 71.033 kg Temp Pulse Resp BP Pulse Ox 98.1 F 74 15 93/37 100 06/06/20 11:00 06/06/20 11:00 06/06/20 11:00 06/06/20 11:00 06/06/20 11:00 Preop Diagnosis: Esophageal cancer requiring Port-A-Cath Proposed Procedure: PEG tube Familial anesthetic complications: none Was Beta Danielle taken within 24 hours: Yes Last intake: NPO > 8 hrs Social: Social History: No alcohol and No tobacco Exam: Pre-Anes Outpt Exam: alert, oriented x 3, clear to auscultation bilaterally and regular rate & rhythm Airway: Cervical ROM: WNL MP: 1 Dentition: Partials CV/HEM: CV/HEM: CAD (stent 13 years ago) Comments: pacer/defibrillator - will place magnet if cautery used Metabolic: Metabolic: DM Musc/skel: Musc/skel: Lower Back Pain Anesthetic Plan: ASA status: 4 Anesthesia: MAC Risk of > 500 ml blood loss (7ml/kg in children): No Meds/Allergies Current Medications: Current Medications Generic Name Dose Route Start Last Admin Trade Name Freq PRN Reason Stop Dose Admin Atorvastatin Calci um 20 mg 06/06/20 09:00 06/06/20 10:46 Lipitor PO 20 mg DAILY ALICE Administration Finasteride 5 mg 06/06/20 09:00 06/06/20 10:48 Proscar PO 5 mg DAILY ALICE Administration Potassium Chloride /Dextrose/Sod Cl 20 meq in 1,000 m ls @ 100 mls/hr 06/05/20 16:46 06/06/20 04:01 D5-Ns 0.45% + Gilson l 20 Meq IV 100 mls/hr .Q10H ALICE Administration Ciprofloxacin/Dext riya 400 mg in 200 mls @ 200 mls/hr 06/05/20 23:00 06/06/20 10:49 Cipro IV 200 mls/hr Q12H ALICE Administration Protocol Metronidazole 500 mg in 100 mls @ 100 mls/hr 06/05/20 19:00 06/06/20 11:08 Flagyl Iv IV 100 mls/hr Q8H ALICE Administration Protocol Insulin Aspart 0 unit 06/05/20 18:00 09/13/20 11:08 Novolog SUBCUT Not Given WM&BEDTIME ALICE Protocol Pantoprazole Sodiu m 40 mg 06/05/20 23:45 06/06/20 10:48 Protonix IVP 40 mg Q12H ALICE Administration PFSH Anesthesia PFSH: Medical History (Updated 06/05/20 @ 18:53 by Boubacar Mancilla MD) BPH (benign prostatic hyperplasia) CAD (coronary artery disease) Diabetes mellitus Diverticulosis Esophageal cancer Hypertension Surgical History (Updated 06/05/20 @ 18:55 by Boubacar Mancilla MD) H/O bilateral inguinal hernia repair H/O exploratory laparotomy I swallowed a safety pin when I was a kid and they had to open me up to get it out History of foot surgery R ankle fracture History of incisional hernia repair x 2 Port-A-Cath in place Right subclavian S/P appendectomy Status post coronary artery stent placement x 1 2006 Status post placement of cardiac pacemaker Family History Other Cancer Denies family history of Anesthesia complication Bleeding disorder Social History (Updated 06/05/20 @ 19:00 by Boubacar Mancilla MD) Quit status (tobacco): has quit using tobacco Former quit date comment: 1979 Alcohol intake: former Former alcohol use details: Quit in September. Formerly heavy drinker Substance/Drug Use: never Lives independently: Yes Household members: spouse Marital status: Data Anesthesia CBC & Chem 7: 06/06/20 11:40 06/06/20 04:51 Other Labs: Laboratory Results - last 48 hr 06/05/20 06/05/20 06/05/20 00:03 09:30 09:30 WBC RBC Hgb Cancelled Hct MCV MCH MCHC RDW Plt Count MPV Neut % (Auto) Lymph % (Auto) [place] % (Auto) Eos % (Auto) Baso % (Auto) Neut # (Auto) Lymph # (Auto) [place] # (Auto) Eos # (Auto) Baso # (Auto) Nucleated RBC % (auto) Nucleated RBCs # PT INR D-Dimer Sodium Potassium Chloride Carbon Dioxide Anion Gap BUN Creatinine GFR Calculation Glucose POC Glucose Calculated Osmolality Lactic Acid 5.8 H* Lactic Acid (Sepsis) Calcium Total Bilirubin AST ALT Alkaline Phosphatase Total Protein Albumin Globulin Lipase Urine Color Urine Appearance Urine pH Ur Specific [place] Urine Protein Urine Glucose (UA) Urine Ketones Urine Blood Urine Nitrate Urine Bilirubin Urine Urobilinogen Ur Leukocyte Esterase H. pylori IgG Antibody SARS-CoV-2 Ag (Rapid) Blood Type O Positive Rho(D) Type Positive Antibody Screen Negative Crossmatch See Detail 06/05/20 06/05/20 06/05/20 09:30 09:30 09:30 WBC 10.5 H RBC 2.42 L Hgb 7.7 L Hct 23.8 L MCV 98.3 H MCH 31.8 MCHC 32.4 RDW 13.9 Plt Count 194 MPV 11.6 H Neut % (Auto) 89.5 Lymph % (Auto) 7.2 [place] % (Auto) 2.6 Eos % (Auto) 0.0 Baso % (Auto) 0.1 Neut # (Auto) 9.38 H Lymph # (Auto) 0.8 [place] # (Auto) 0.3 Eos # (Auto) 0.0 Baso # (Auto) 0.0 Nucleated RBC % (auto) 0 Nucleated RBCs # 0.0 PT INR D-Dimer 0.41 Sodium 137 Potassium 4.5 Chloride 103 Carbon Dioxide 19 L Anion Gap 19.5 H BUN 71 H Creatinine 1.0 GFR Calculation Not Reportable Glucose 262 H POC Glucose Calculated Osmolality 292 Lactic Acid Lactic Acid (Sepsis) Calcium 8.1 L Total Bilirubin 0.4 AST 11 ALT 12 Alkaline Phosphatase 48 Total Protein 5.8 L Albumin 3.7 Globulin 2.1 Lipase 17 Urine Color Urine Appearance Urine pH Ur Specific [place] Urine Protein Urine Glucose (UA) Urine Ketones Urine Blood Urine Nitrate Urine Bilirubin Urine Urobilinogen Ur Leukocyte Esterase H. pylori IgG Antibody SARS-CoV-2 Ag (Rapid) Blood Type Rho(D) Type Antibody Screen Crossmatch 06/05/20 06/05/20 06/05/20 09:30 09:57 11:30 WBC RBC Hgb Hct MCV MCH MCHC RDW Plt Count MPV Neut % (Auto) Lymph % (Auto) [place] % (Auto) Eos % (Auto) Baso % (Auto) Neut # (Auto) Lymph # (Auto) [place] # (Auto) Eos # (Auto) Baso # (Auto) Nucleated RBC % (auto) Nucleated RBCs # PT 13.30 INR 0.98 D-Dimer Sodium Potassium Chloride Carbon Dioxide Anion Gap BUN Creatinine GFR Calculation Glucose POC Glucose Calculated Osmolality Lactic Acid Lactic Acid (Sepsis) 4.3 H* Calcium Total Bilirubin AST ALT Alkaline Phosphatase Total Protein Albumin Globulin Lipase Urine Color Urine Appearance Urine pH Ur Specific [place] Urine Protein Urine Glucose (UA) Urine Ketones Urine Blood Urine Nitrate Urine Bilirubin Urine Urobilinogen Ur Leukocyte Esterase H. pylori IgG Antibody SARS-CoV-2 Ag (Rapid) Negative Blood Type Rho(D) Type Antibody Screen Crossmatch 06/05/20 06/05/20 06/05/20 12:19 16:53 18:00 WBC RBC Hgb 7.2 L Hct MCV MCH MCHC RDW Plt Count MPV Neut % (Auto) Lymph % (Auto) [place] % (Auto) Eos % (Auto) Baso % (Auto) Neut # (Auto) Lymph # (Auto) [place] # (Auto) Eos # (Auto) Baso # (Auto) Nucleated RBC % (auto) Nucleated RBCs # PT INR D-Dimer Sodium Potassium Chloride Carbon Dioxide Anion Gap BUN Creatinine GFR Calculation Glucose POC Glucose 139 Calculated Osmolality Lactic Acid Lactic Acid (Sepsis) Calcium Total Bilirubin AST ALT Alkaline Phosphatase Total Protein Albumin Globulin Lipase Urine Color Straw Urine Appearance Clear Urine pH 5 Ur Specific [place] 1.005 Urine Protein Neg Urine Glucose (UA) Trace H Urine Ketones 1+ H Urine Blood Neg Urine Nitrate Negative Urine Bilirubin Neg Urine Urobilinogen Norm Ur Leukocyte Esterase Negative H. pylori IgG Antibody SARS-CoV-2 Ag (Rapid) Blood Type Rho(D) Type Antibody Screen Crossmatch 06/05/20 06/06/20 06/06/20 20:38 00:03 04:51 WBC RBC Hgb 7.4 L Hct MCV MCH MCHC RDW Plt Count MPV Neut % (Auto) Lymph % (Auto) [place] % (Auto) Eos % (Auto) Baso % (Auto) Neut # (Auto) Lymph # (Auto) [place] # (Auto) Eos # (Auto) Baso # (Auto) Nucleated RBC % (auto) Nucleated RBCs # PT INR D-Dimer Sodium Potassium Chloride Carbon Dioxide Anion Gap BUN Creatinine GFR Calculation Glucose POC Glucose 178 Calculated Osmolality Lactic Acid Lactic Acid (Sepsis) Calcium Total Bilirubin AST ALT Alkaline Phosphatase Total Protein Albumin Globulin Lipase Urine Color Urine Appearance Urine pH Ur Specific [place] Urine Protein Urine Glucose (UA) Urine Ketones Urine Blood Urine Nitrate Urine Bilirubin Urine Urobilinogen Ur Leukocyte Esterase H. pylori IgG Antibody Negative SARS-CoV-2 Ag (Rapid) Blood Type Rho(D) Type Antibody Screen Crossmatch 06/06/20 06/06/20 06/06/20 04:51 04:51 07:46 WBC 8.9 RBC 2.76 L Hgb 8.5 L Hct 27.2 L MCV 98.6 H MCH 30.8 MCHC 31.3 RDW 14.1 Plt Count 152 MPV 11.2 H Neut % (Auto) 83.9 Lymph % (Auto) 12.1 [place] % (Auto) 3.2 Eos % (Auto) 0.1 Baso % (Auto) 0.1 Neut # (Auto) 7.43 Lymph # (Auto) 1.1 [place] # (Auto) 0.3 Eos # (Auto) 0.0 Baso # (Auto) 0.0 Nucleated RBC % (auto) 0 Nucleated RBCs # 0.0 PT INR D-Dimer Sodium 141 Potassium 4.5 Chloride 110 H Carbon Dioxide 23 Anion Gap 12.5 BUN 28 H Creatinine 0.8 GFR Calculation Not Reportable Glucose 133 H POC Glucose 134 Calculated Osmolality 291 Lactic Acid Lactic Acid (Sepsis) Calcium 7.9 L Total Bilirubin 0.9 AST 10 ALT 9 Alkaline Phosphatase 38 L Total Protein 5.2 L Albumin 3.3 L Globulin 1.9 Lipase Urine Color Urine Appearance Urine pH Ur Specific [place] Urine Protein Urine Glucose (UA) Urine Ketones Urine Blood Urine Nitrate Urine Bilirubin Urine Urobilinogen Ur Leukocyte Esterase H. pylori IgG Antibody SARS-CoV-2 Ag (Rapid) Blood Type Rho(D) Type Antibody Screen Crossmatch 06/06/20 06/06/20 10:51 11:40 WBC RBC Hgb 7.9 L Hct MCV MCH MCHC RDW Plt Count MPV Neut % (Auto) Lymph % (Auto) [place] % (Auto) Eos % (Auto) Baso % (Auto) Neut # (Auto) Lymph # (Auto) [place] # (Auto) Eos # (Auto) Baso # (Auto) Nucleated RBC % (auto) Nucleated RBCs # PT INR D-Dimer Sodium Potassium Chloride Carbon Dioxide Anion Gap BUN Creatinine GFR Calculation Glucose POC Glucose 128 Calculated Osmolality Lactic Acid Lactic Acid (Sepsis) Calcium Total Bilirubin AST ALT Alkaline Phosphatase Total Protein Albumin Globulin Lipase Urine Color Urine Appearance Urine pH Ur Specific [place] Urine Protein Urine Glucose (UA) Urine Ketones Urine Blood Urine Nitrate Urine Bilirubin Urine Urobilinogen Ur Leukocyte Esterase H. pylori IgG Antibody SARS-CoV-2 Ag (Rapid) Blood Type Rho(D) Type Antibody Screen Crossmatch Micro: Microbiology 06/05/20 04:51 Blood Culture - Preliminary Blood SPECIMEN COLLECTED 06/05/20 00:03 Blood Culture - Preliminary Blood SPECIMEN COLLECTED Cardiac Studies: No Data to Display
[2020-06-06] MEDS: sodium chloride 0.9% 1,000 ML 30 ML IV (13:15)
--- NOTE | 2020-06-06 13:42 | ANE.PACU2 ---
Inpatient post-anesthesia follow up: Airway intact: Yes Vital signs: Temperature 98.1 F Pulse Rate [Monito r] 111 Pulse Rate 80 Respiratory Rate 13 Blood Pressure [Ri ght Arm] 108/59 Blood Pressure 129/56 Pulse Oximetry 97 Oxygen Delivery Me thod Room Air Oxygen Flow Rate 2 Fraction of Inspir ed Oxygen 2 Hydration adequate: Yes Nausea and vomiting: No Pain level: 1 Mental status: Baseline
[2020-06-06 18:11] LABS: Glucose Point of Care 80 mg/dL (70-110)
[2020-06-06 18:38] LABS: Hemoglobin 7.9 g/dL (11.7-16.6)
--- NOTE | 2020-06-06 19:37 | PC.NURSE ---
Transferred pt via wheelchair to room 259-1. Report given to receiving nurse, Lenka; all questions answered. Left voicemail with son Gonzalo Alonzo notifying him of new room number. VSS and no s/s distress at time of transfer; pt denied any concerns or needs at this time.
[2020-06-06 20:41] LABS: Glucose Point of Care 98 mg/dL (70-110)
[2020-06-07] VITALS: BP 119/45; PULSE 73; RESP 19; TEMP 36.6; O2SAT 98
[2020-06-07] MEDS: metroNIDAZOLE IV 500 MG/100 ML PREMIX 100 MG IV ×3 (03:32→18:36)
[2020-06-07 04:00] VITALS: BP 115/56; PULSE 70; RESP 19; TEMP 36.5; O2SAT 96
[2020-06-07 05:53] LABS: Basophils % 0.1 %; Eosinophils # 0.2 10^3/uL (0.0-0.8); Eosinophils % 2.3 %; Hematocrit 23.4 % (42.0-52.0); Hemoglobin 7.5 g/dL (11.7-16.6); Lymphocytes # 1.3 10^3/uL (0.8-4.8); Lymphocytes % 18.5 %; Mean Corpuscular HGB Conc 32.1 g/dL (30.0-36.0); Mean Corpuscular Hemoglobin 31.3 pg (28.0-34.0); Mean Corpuscular Volume 97.5 fL (80-94); Mean Platelet Volume 11.3 fL (7.4-10.4); Monocytes # 0.2 10^3/uL (0.2-0.9); Monocytes % 2.5 %; Neutrophils # 5.27 10^3/uL (1.8-7.7); Nucleated Red Blood Cells % 0 %; Platelet Count 146 10^3/cmm (130-400); Red Cell Distribution Width 14.2 % (12.1-15.1); White Blood Count 6.9 10^3/uL (4.0-10.0)
[2020-06-07 06:14] LABS: Alanine Aminotransferase 10 U/L (0-41); Albumin Level 3.2 g/dL (3.5-5.2); Alkaline Phosphatase 42 IU/L (40-130); Anion Gap 10.1 (5-19); Aspartate Amino Transferase 13 U/L (0-40); Blood Urea Nitrogen 12 mg/dL (8-23); Calcium 7.4 mg/dL (8.5-10.5); Carbon Dioxide 24 mmol/L (22-29); Chloride 108 mmol/L (98-107); Globulin 1.9 g/dL (1.3-4.6); Glucose 118 mg/dL (65-115); Osmolality Calculated 283 mOsm/kg (285-295); Potassium 4.1 mmol/L (3.5-5.1); Sodium 138 mmol/L (136-145); Total Bilirubin 0.6 mg/dL (0.15-1.2); Total Protein 5.1 g/dL (6.6-8.7)
[2020-06-07 06:46] LABS: Glucose Point of Care 117 mg/dL (70-110)
[2020-06-07 08:00] VITALS: BP 113/55; PULSE 73; RESP 18; TEMP 36.7; O2SAT 96
[2020-06-07] MEDS: D5-NS 0.45% + KCL 20 mEq 20 MEQ/1,000 ML BAG 100 MEQ IV ×2 (08:54→22:48)
[2020-06-07] MEDS: atorvastatin 40 mg Tablet 20 MG PO (08:55)
[2020-06-07] MEDS: finasteride 5 mg Tablet PO (08:56)
[2020-06-07] MEDS: pantoprazole 40 mg SDV IVP ×2 (10:22→22:49)
[2020-06-07] MEDS: ciprofloxacin 400 MG/200 ML PREMIX 200 MG IV ×2 (10:22→22:48)
[2020-06-07 11:08] LABS: Glucose Point of Care 127 mg/dL (70-110)
--- NOTE | 2020-06-07 11:43 | ANE.PACU2 ---
Inpatient post-anesthesia follow up: Airway intact: Yes Vital signs: Temperature 98.0 F Pulse Rate [Monito r] 111 Pulse Rate 73 Respiratory Rate 18 Blood Pressure [Ri ght Arm] 108/59 Blood Pressure 113/55 Pulse Oximetry 96 Oxygen Delivery Me thod Room Air Oxygen Flow Rate 2 Fraction of Inspir ed Oxygen 2 Hydration adequate: Yes Nausea and vomiting: No Pain level: 1 Mental status: Baseline
--- NOTE | 2020-06-07 11:48 | P.PN_ITS ---
Subjective Subjective: Interval history: No acute events overnight. Patient has no complaints today. States he would like to go home. Denies of any nausea, vomiting, headache. PEG tube in place. Patient was sent over to radiation oncology for radiation but apparently patient did not have any appointment radiation oncology. Had a detailed discussion with Dr. Arellano from radiation oncology and patient is not ready for radiation oncology for now as he still under evaluation. Vitals/I&O/Wt Last Vital Signs Temp 98.0 F 06/07/20 08:00 Pulse 73 06/07/20 08:00 Resp 18 06/07/20 08:00 BP 113/55 06/07/20 08:00 Pulse Ox 96 06/07/20 08:00 06/06/20 06/07/20 06/07/20 22:59 06:59 14:59 Intake Total 218.333 / 5542.667 8344 / 3050.000 200 / 200 Output Total 300 / 300 250 / 550 500 / 500 Balance -81.667 / 7075.239 9359 / 2500.000 -300 / -300 Weight last 48 hrs Weight 87.317 kg Weight 71.033 kg Physical Exam Const: COMMON NORMALS: no acute distress and patient oriented x3 HENMT: COMMON NORMALS: oropharynx normal Neck/C-Spine: COMMON NORMALS: no JVD Chest: OTHER: Chest PPM Resp: COMMON NORMALS: normal respiratory effort and clear to auscultation bilaterally AUSCULTATION: clear to auscultation bilaterally Cardio: COMMON NORMALS: no JVD, regular rhythm, S1 normal heart sound present, S2 normal heart sound present and No murmurs present (Cardio) RHYTHM: regular rhythm HEART SOUNDS: S1 normal heart sound present and S2 normal heart sound present GI: COMMON NORMALS: Normal to inspection, nondistended, normoactive bowel sounds present, Soft to palpation and non-tender (During my examination minimally if at all tender, epigastric region) PALPATION: Yes Soft to palpation Extremity: COMMON NORMALS: no joint enlargement and no pedal edema Neuro: COMMON NORMALS: patient oriented x3 and moves all extremities Skin: COMMON NORMALS: no rashes or lesions noted GENERAL SKIN EXAM: no rashes or lesions noted Data : 06/07/20 05:02 06/07/20 05:02 Micro: Microbiology 06/05/20 04:51 Blood Culture - Preliminary Blood NEGATIVE TO DATE 06/05/20 00:03 Blood Culture - Preliminary Blood NEGATIVE TO DATE A&P Assessment and plan (1) GI bleeding: Status: Acute (2) Nausea & vomiting: Status: Acute (3) Esophageal cancer: Recently started on chemotherapy. Radiation therapy is being set up. Continue follow-up with Dr. Bhagat. Status: Acute (4) Acute blood loss anemia: As above. Status: Acute (5) Lactic acidosis: Lactic acid up to 5.8, improved down to 4.3 with some IV fluid. At this time he remains stable, not bothered by mental pain, abdomen is soft. Suspicion for ischemic bowel is low. Discussed with him and his son on admission. Discussed possibly of etiology for this, including hypoperfusion secondary to lack of oral intake in the last several days, nausea, vomiting, perhaps contribution from acute infection sec ondary to diverticulitis, although otherwise does not fit sepsis criteria. Check blood culture. We discussed also other more dangerous etiologies including low possibility of ischemic bowel. Allergic contribution may be due to chronic liver disease given he used to be a heavy drinker, recently quit in September. Does not have known liver cirrhosis. Liver parameters otherwise are normal. INR is normal. Cirrhosis appears less likely, though does not exclude some underlying early fibrosis. Alternatively also may be type B lactic acidosis due to his malignancy. Alternatively also may be lactic acidosis due to metformin. Discontinue. Status: Acute (6) Diverticulitis: Status: Acute (7) PEG (percutaneous endoscopic gastrostomy) status: Status: Acute (8) Port-A-Cath in place: Status: Inactive Additional A&P Information Acute blood loss anemia: GI bleed: Continue with Protonix twice daily. Followed up with Dr. Mancilla from surgery. Patient did undergo EGD and PEG tube placement. GI bleed is most likely because of esophageal cancer and tumor burden along with chronic use of NSAIDs and I ibuprofen. Patient did have elevated lactate on admission but on examination patient have soft abdominal with minimal tenderness with lack of additional finding on CT scan it was discussed with the family earlier in the admission and the plan was to continue to monitor Continue n.p.o. Continue to monitor hemoglobin daily. ~Patient has received 2 units of PRBC transfusion. Hemoglobin stable at 7.5 today. Continue holding aspirin and Plavix for now. Continue holding ibuprofen on discharge. Continue follow-up H. pylori studies. IV hydration. PEG tube placement status: We will start patient on PEG tube feeds bolus half a can with each meal increasing to 1 can of the residual is less than 50 cc with 100 cc free water flush. Diverticulitis: Present on CT scan. At present patient is on ciprofloxacin and Flagyl. We will continue the same. Will most likely discharge on oral therapy through PEG tube to finish a 10-day course. Esophageal cancer: Patient is on chemoradiation therapy with the same. Next cycle of chemotherapy on Sunday. Had a detailed discussion with Dr. Arellano from radiation oncology regarding patient. He is under evaluation and most likely will get radiation therapy later this week or early next week. Diabetes: DC metformin. Mild sliding scale. CAD: Hold aspirin, Plavix HTN BPH Patient's health and plan of treatment were discussed in detail both the patient and his son. They are both agreeable to the plan of treatment. All the quest ions were answered. Full code. SCDs for DVT prophylaxis. Attestations Medical Necessity Statement*: GI bleed, esophageal cancer, PEG tube placement. Time Spent in Patient Care: Greater than 35 minutes (>than 50% of time spent in counselling and/or direct pt care on unit) . Coding Level of Care Code Acute [facility] Welder for [facility] Fwd Diagnoses GI bleeding K92.2 Nausea & vomiting R11.2 Esophageal cancer C15.9 Acute blood loss anemia D62 Lactic acidosis E87.2 Diverticulitis K57.92 PEG (percutaneous endoscopic gastrostomy) status Z93.1 Port-A-Cath in place Z95.828
[2020-06-07 12:00] VITALS: BP 123/62; PULSE 76; RESP 18; TEMP 36.8; O2SAT 98
[2020-06-07 12:39] LABS: Ferritin 205 ng/mL (30-400); Iron 25 ug/dL (59-158); Percent Saturation 13.7 % (20-50); Total Iron Binding Capacity 182 mcg/dl; Unsaturated Iron Binding 157 ug/dL (112-347)
--- NOTE | 2020-06-07 14:16 | PC.NURSE ---
Residual amount of gastric juices measured 20 ml before first feeding of 4 oz. 120 ml (1.2 calorie) glucerna admin bolus feed. 100 ml water flush.
[2020-06-07] MEDS: iron sucrose 200 MG in sodium chloride 0.9% (100 ml) 100 ML 220 MG IV (14:25)
[2020-06-07 16:00] VITALS: BP 126/64; PULSE 80; RESP 17; TEMP 36.6; O2SAT 97
[2020-06-07 17:11] LABS: Glucose Point of Care 135 mg/dL (70-110)
--- NOTE | 2020-06-07 17:58 | PC.NURSE ---
less than 5ml residual. 8 0z of glucerna bolus. 100 ml flushed with h20.
[2020-06-07 20:00] VITALS: BP 117/60; PULSE 76; RESP 18; TEMP 37.2; O2SAT 96
[2020-06-07 21:16] LABS: Glucose Point of Care 135 mg/dL (70-110)
[2020-06-08] VITALS: BP 127/71; PULSE 79; RESP 17; TEMP 36.7; O2SAT 96
[2020-06-08] MEDS: metroNIDAZOLE IV 500 MG/100 ML PREMIX 100 MG IV ×2 (03:35→11:30)
[2020-06-08 04:00] VITALS: BP 105/57; PULSE 77; RESP 19; TEMP 37.5; O2SAT 96
[2020-06-08 05:44] LABS: Basophils % 0.6 %; Eosinophils # 0.3 10^3/uL (0.0-0.8); Eosinophils % 5.6 %; Hemoglobin 7.5 g/dL (11.7-16.6); Lymphocytes # 1.2 10^3/uL (0.8-4.8); Lymphocytes % 23.5 %; Mean Corpuscular HGB Conc 32.6 g/dL (30.0-36.0); Mean Corpuscular Hemoglobin 31.3 pg (28.0-34.0); Mean Corpuscular Volume 95.8 fL (80-94); Mean Platelet Volume 10.6 fL (7.4-10.4); Monocytes # 0.2 10^3/uL (0.2-0.9); Monocytes % 3.9 %; Neutrophils # 3.38 10^3/uL (1.8-7.7); Neutrophils % 65.8 %; Nucleated Red Blood Cells % 0 %; Platelet Count 174 10^3/cmm (130-400); Red Cell Distribution Width 13.9 % (12.1-15.1); White Blood Count 5.1 10^3/uL (4.0-10.0)
[2020-06-08 06:12] LABS: Alanine Aminotransferase 16 U/L (0-41); Albumin Level 3.2 g/dL (3.5-5.2); Alkaline Phosphatase 48 IU/L (40-130); Anion Gap 9.9 (5-19); Aspartate Amino Transferase 20 U/L (0-40); Blood Urea Nitrogen 8 mg/dL (8-23); Calcium 7.6 mg/dL (8.5-10.5); Carbon Dioxide 24 mmol/L (22-29); Chloride 107 mmol/L (98-107); Globulin 1.8 g/dL (1.3-4.6); Glucose 125 mg/dL (65-115); Osmolality Calculated 281 mOsm/kg (285-295); Potassium 3.9 mmol/L (3.5-5.1); Sodium 137 mmol/L (136-145); Total Bilirubin 0.4 mg/dL (0.15-1.2)
[2020-06-08 06:56] LABS: Glucose Point of Care 137 mg/dL (70-110)
[2020-06-08 07:34] VITALS: BP 123/72; PULSE 65; RESP 16; TEMP 36.9; O2SAT 98
[2020-06-08] MEDS: atorvastatin 40 mg Tablet 20 MG PO (09:04)
[2020-06-08] MEDS: finasteride 5 mg Tablet PO (09:05)
--- NOTE | 2020-06-08 09:05 | PC.SOCIAL ---
IMM Page 2 IMM explained to patient. Initialed, dated, and timed and placed in chart. Copy provided to patient.
[2020-06-08 10:59] VITALS: BP 111/62; PULSE 86; RESP 17; TEMP 37; O2SAT 98
[2020-06-08 11:06] LABS: Glucose Point of Care 127 mg/dL (70-110)
[2020-06-08] MEDS: ciprofloxacin 400 MG/200 ML PREMIX 200 MG IV (11:31)
[2020-06-08] MEDS: pantoprazole 40 mg SDV IVP (11:32)
[2020-06-08 11:44] VITALS: BP 111/62; PULSE 86; RESP 17; TEMP 37; O2SAT 98
--- NOTE | 2020-06-08 11:59 | P.DS_ITS ---
Discharge Providers Date of Admission: 06/05/20 11:53 Date of Discharge: June 08, 2020 Attending Provider at Admission: Saurabh Melendez Attending Provider at Discharge: Glen Loza MD Consults: Surgery: Dr. Mancilla Primary Care Provider: Tray Mcclellan DO Diagnoses at Discharge Discharge Diagnosis (1) GI bleeding: Status: Acute (2) Nausea & vomiting: Status: Acute (3) Esophageal cancer: Status: Acute (4) Acute blood loss anemia: Status: Acute (5) Lactic acidosis: Status: Acute (6) Diverticulitis: Status: Acute (7) PEG (percutaneous endoscopic gastrostomy) status: Status: Acute (8) Port-A-Cath in place: Status: Inactive Problem details: Right subclavian Reason for Visit Reason for Visit: BLOODY STOOL AND N/V POST CHEMO Hospital Course Discharge Summary: Bernard Alonzo is a 85 year old gentleman with esophageal cancer coming in with melanous stools and emesis and lack of oral intake at least the last several days, but with severe symptoms of nausea, vomiting, and reduced food intake tolerance going on for at least several weeks, maybe longer. He had recently started on chemotherapy for his cancer. He has also been undergoing evaluation to start radiation therapy. He has history of coronary disease and MD, stenting, and so takes aspirin 325 mg as well as Plavix, he does also say he has been taking ibuprofen for pain. He says that when he was assessed by GI physician at the time of diagnosis of the mass, he was started on pantoprazole, but says that he has not had the ability to take very much of it due to the recurrent nausea and vomiting. He has been having epigastric pain/discomfort, which is been worse in the last several 2 days. More recently also started having some left lower quadrant pain as well. In ER he is noted to have lactic acidosis of 5.8. Hemoglobin down to 7.7 from 13.2 on 06/02. Contrast CT scan with finding of dilated and air-filled stomach with mild antral duodenal wall thickening. Per discussion with radiology major branches of mesenteric arteries are open, although this is not a CT angiogram protocol study. Noted low-grade diverticulitis. He was admitted to the hospital and was started on ciprofloxacin and Flagyl for diverticulitis. For GI bleed he received 2 units of PRBC transfusion. Surgery was consulted and he underwent endoscopy. His bleeding almost certainly is coming from the area of esophageal tumor along with chronic use of ibuprofen. On admission patient did have elevated lactate but with negative CT scan and lack of findings on abdominal examination it is thought that his elevated lactate is most likely because of elevated tumor burden. Because of chronic dysphagia along with nausea and vomiting because of esophageal cancer patient underwent PEG tube placement. His procedure was uneventful. His hemoglobin remained stable. He has been started on PEG tube feeds which he is tolerating well. At present he is able to tolerate 1-1/2 cans 3 times a day. Patient has been taught extensively and counseled extensively regarding PEG tube care and PEG tube feeds. The plan has also been discussed with patient's son and [id number] and they are both agreeable. Patient is due for chemotherapy on June 09. Patient has also met with radiation oncology and is under evaluation for radiation therapy and most likely he should be getting radiation therapy later this week or next week. Patient's plan has been discussed in detail with the family and they are both agreeable. He is been discharged in hemodynamic stable condition with oral ciprofloxacin and Flagyl for 3 more days to finish course of antibiotics. Home medications medications including aspirin, Plavix, carvedilol has been held for now. Carvedilol has been held because of blood pressures have been within normal limits without the medication. Can be reintroduced if the blood pressures going over 140/90 mmHg. Aspirin and Plavix have to be on hold for at least 2 more weeks and then can be started as per discussion with your primary care provider while keeping a close eye on your hemoglobin levels. Physical Exam Const: COMMON NORMALS: no acute distress and patient oriented x3 HENMT: COMMON NORMALS: oropharynx normal Neck/C-Spine: COMMON NORMALS: no JVD Chest: OTHER: Chest PPM Resp: COMMON NORMALS: normal respiratory effort and clear to auscultation bilaterally AUSCULTATION: clear to auscultation bilaterally Cardio: COMMON NORMALS: no JVD, regular rhythm, S1 normal heart sound present, S2 normal heart sound present and No murmurs present (Cardio) RHYTHM: regular rhythm HEART SOUNDS: S1 normal heart sound present and S2 normal heart sound present GI: COMMON NORMALS: Normal to inspection, nondistended, normoactive bowel sounds present, Soft to palpation and non-tender (During my examination minimally if at all tender, epigastric region) PALPATION: Yes Soft to palpation OTHER: PEG tube insertion site clean without any extravasation. Extremity: COMMON NORMALS: no joint enlargement and no pedal edema Neuro: COMMON NORMALS: patient oriented x3 and moves all extremities Skin: COMMON NORMALS: no rashes or lesions noted GENERAL SKIN EXAM: no rashes or lesions noted Discharge Data Data Completed and Pending: Completed Studies During Hospitalization Category Date Time Status CT abdomen pelvis w con* [id number] Urge nt Cat Scan 06/05/20 10:34 Completed XR chest 1V soumya ble [id number] Stat Exams 06/05/20 09:24 Completed Pending at discharge Category Date Time Status Blood Culture Sta t Lab 06/05/20 04:51 Results Complete Blood Co unt w/Auto AM LABS Lab 06/09/20 04:00 Ordered Comprehensive Met abolic Panel AM LA BS Lab 06/09/20 04:00 Ordered Helicobacter Pylo ri AG Stool Routin e Lab 06/06/20 01:05 Received Labs from last 24 hours 06/08/20 06/08/20 06/08/20 10:51 06:42 04:52 WBC RBC Hgb Hct MCV MCH MCHC RDW Plt Count MPV Neut % (Auto) Lymph % (Auto) [place] % (Auto) Eos % (Auto) Baso % (Auto) Neut # (Auto) Lymph # (Auto) [place] # (Auto) Eos # (Auto) Baso # (Auto) Nucleated RBC % (a uto) Nucleated RBCs # Sodium 137 Potassium 3.9 Chloride 107 Carbon Dioxide 24 Anion Gap 9.9 BUN 8 Creatinine 0.6 L GFR Calculation Not Reportable Glucose 125 H POC Glucose 127 137 Calculated Osmolal ity 281 L Calcium 7.6 L Iron TIBC % Saturation Unsat Iron Binding Ferritin Total Bilirubin 0.4 AST 20 ALT 16 Alkaline Phosphata se 48 Total Protein 5.0 L Albumin 3.2 L Globulin 1.8 06/08/20 06/07/20 06/07/20 04:52 20:58 16:55 WBC 5.1 RBC 2.40 L Hgb 7.5 L Hct 23.0 L MCV 95.8 H MCH 31.3 MCHC 32.6 RDW 13.9 Plt Count 174 MPV 10.6 H Neut % (Auto) 65.8 Lymph % (Auto) 23.5 [place] % (Auto) 3.9 Eos % (Auto) 5.6 Baso % (Auto) 0.6 Neut # (Auto) 3.38 Lymph # (Auto) 1.2 [place] # (Auto) 0.2 Eos # (Auto) 0.3 Baso # (Auto) 0.0 Nucleated RBC % (a uto) 0 Nucleated RBCs # 0.0 Sodium Potassium Chloride Carbon Dioxide Anion Gap BUN Creatinine GFR Calculation Glucose POC Glucose 135 135 Calculated Osmolal ity Calcium Iron TIBC % Saturation Unsat Iron Binding Ferritin Total Bilirubin AST ALT Alkaline Phosphata se Total Protein Albumin Globulin 06/07/20 05:02 WBC RBC Hgb Hct MCV MCH MCHC RDW Plt Count MPV Neut % (Auto) Lymph % (Auto) [place] % (Auto) Eos % (Auto) Baso % (Auto) Neut # (Auto) Lymph # (Auto) [place] # (Auto) Eos # (Auto) Baso # (Auto) Nucleated RBC % (a uto) Nucleated RBCs # Sodium Potassium Chloride Carbon Dioxide Anion Gap BUN Creatinine GFR Calculation Glucose POC Glucose Calculated Osmolal ity Calcium Iron 25 L TIBC 182 % Saturation 13.7 L Unsat Iron Binding 157 Ferritin 205 Total Bilirubin AST ALT Alkaline Phosphata se Total Protein Albumin Globulin Vitals: Last Vital Signs Temp 98.6 F 06/08/20 11:44 Pulse 86 06/08/20 11:44 Resp 17 06/08/20 11:44 BP 111/62 06/08/20 11:44 Pulse Ox 98 06/08/20 11:44 Discharge Plan Discharge Patient Disposition: Home Health Service Condition: Stable Prescriptions: New ferrous gluconate 324 mg (37.5 mg iron) tablet 324 mg feeding tube BID Qty: 60 RF: 0 ciprofloxacin 500 mg/5 mL suspension,microcapsule recon 250 mg PO Q12H 3 Days Qty: 15 RF: 0 metronidazole 500 mg tablet 500 mg PO Q8H 3 Days Qty: 9 RF: 0 pantoprazole [address] for susp in packet 40 mg PO BID Qty: 60 RF: 1 Continued simvastatin 80 mg Tablet 40 mg PO DAILY RF: 0 hydrocodone-acetaminophen 7.5-325 mg Tablet 1 tab PO Q6H PRN (Reason: Pain) RF: 0 metformin 1,000 mg Tablet 500 mg PO DAILY RF: 0 finasteride 5 mg Tablet 5 mg PO DAILY RF: 0 cholecalciferol (vitamin D3) [Vitamin D3] 25 mcg (1,000 unit) Capsule 25 mcg PO DAILY RF: 0 Held clopidogrel [Plavix] 75 mg Tablet 75 mg PO DAILY RF: 0 Hold Instructions: Resume on 05/22/20. Discontinued aspirin 325 mg Tablet 325 mg PO DAILY RF: 0 Hold Instructions: Resume on 05/21/20. pantoprazole 40 mg tablet,delayed release (DR/EC) 40 mg PO DAILY RF: 0 ibuprofen [Advil] 100 mg Tablet 400 mg PO QAM RF: 0 Hold Instructions: Resume on 05/21/20. carvedilol 25 mg Tablet 6.25 mg PO BID Qty: 0 RF: 0 Discharge Orders: Discharge Order (Routine); Ordered 06/08/20 Ordered By: Glen Loza Other Ambulatory Orders: DME: Miscellaneous (Order) Location: None Selected Ordered By: Glen Loza Referrals: [facility] [Other] (This is the company that will be providing your tube feedings and supplies for two weeks until [facility] to [facility] the suppl ies to your home. If you have any questions regarding your tube feedings or supplies in the first two weeks after discharge, you may call [facility] at the phone number provided. You may also call the [facility] if you have any questions or concerns at [phone] extension [phone].) [facility] [place] [Outside] (The [place] wanted you to have a home health nurse to come out and help teach you how to do tube feedings and help troubleshoot any issues. This is your home health company that will be contacting you to set up a time to begin services.) Tray Mcclellan, DO [Primary Care Provider] - 1 week Discharge Diet: Start new tube feeds as directed Discharge Activity: Resume usual activity Activity Restrictions/Additional Instructions: Repeat CBC in 1 week. Please continue taking your PEG feeds as discussed. You have to take ciprofloxacin and Flagyl which were the antibiotics for 3 more days. Home medications medications including aspirin, Plavix, carvedilol has been held for now. Carvedilol has been held because of blood pressures have been within normal limits without the medication. Can be reintroduced if the blood pressures going over 140/90 mmHg. Aspirin and Plavix have to be on hold for at least 2 more weeks and then can be started as per discussion with your primary care provider while keeping a close eye on your hemoglobin levels. Please continue to follow-up with your oncologist for appropriate chemotherapy and radiation therapy schedules. Discharge Attestations Time Spent in Discharge Care*: greater than 30 min Specific Discharge Activities: Specific discharge activities: educating patient, educating and/or supporting family/caregiver, discussing with business case analyst/social workers/dc planners, documenting/other paperwork and evaluating patient/reviewing data Status at Discharge: Cognitive status at discharge: cognitively intact , Behavioral status at discharge: cooperative , Functional status at discharge: independent ambulation Overall status at discharge: patient has a new baseline Quality Metrics Clinical Quality Measures During this hospital stay, did patient experience: None Coding Level of Care Code Acute Channel Lip Stiffener Insoles for [facility]g Fwd Diagnoses GI bleeding K92.2 Nausea & vomiting R11.2 Esophageal cancer C15.9 Acute blood loss anemia D62 Lactic acidosis E87.2 Diverticulitis K57.92 PEG (percutaneous endoscopic gastrostomy) status Z93.1 Port-A-Cath in place Z95.828
[2020-06-08 13:44] VITALS: BP 111/62; PULSE 86; RESP 17; TEMP 37; O2SAT 98
== END 2020-06-08 13:45 | disposition home health service (06) | DRG 375 ==
LOC: ER 10:33 → ICU 15:44 → MEDSURG 06-06 19:45
PROVIDERS: Family Medicine; Surgery; Admitting Provider Internal Medicine; PCP Emergency Medicine Emergency Medical Services; Visit Provider Student in an Organized Health Care Education/Training Program
PROC: 0DH63UZ Insertion of Feeding Device into Stomach, Percutaneous Approach (ICD-10-PCS; CPT 43246; principal; 2020-06-06 12:05)
DX: C15.5 Malignant neoplasm of lower third of esophagus (principal); D62 Acute posthemorrhagic anemia; E87.2 Acidosis; K57.92 Diverticulitis of intestine, part unspecified, without perforation or abscess without bleeding; K43.9 Ventral hernia without obstruction or gangrene; N40.0 Benign prostatic hyperplasia without lower urinary tract symptoms; I25.10 Atherosclerotic heart disease of native coronary artery without angina pectoris; Z95.5 Presence of coronary angioplasty implant and graft; E11.9 Type 2 diabetes mellitus without complications; I10 Essential (primary) hypertension; Z95.0 Presence of cardiac pacemaker; Z87.891 Personal history of nicotine dependence; F10.21 Alcohol dependence, in remission; Z79.891 Long term (current) use of opiate analgesic; Z95.828 Presence of other vascular implants and grafts; E86.0 Dehydration
CPT/HCPCS: 12345; 36415; 36416; 36430; 43246; 71045; 74177; 80053; 81003; 82728; 82962; 83540; 83550; 83605; 83690; 85018; 85025; 85378; 85610; 86677; 86850; 86900; 86920; 87040; 87338; 87426; 93005; 96372; 96375; 97162; 99284; C9113; J0690; J0744; J1756; J1815; J2270; J2405; J2704; J3010; J7030; P9016; Q9967; S0030

== ENCOUNTER 2020-06-23 05:35 | Outpatient (RCR) | payer OTHER, SELFPAY ==
--- NOTE | 2020-06-09 07:35 | PC.NUTR ---
NUTR TF CONSULT: Consult received. No anthroprometrics to calculate needs for TF recommendations. Notes reviewed, glucerna used for TF. Unknown goals. Pt has esophageal cancer and PEG tube was placed.
[2020-06-09 12:27] LABS: Basophils % 0.2 %; Hematocrit 27.7 % (42.0-52.0); Lymphocytes # 0.3 10^3/uL (0.8-4.8); Lymphocytes % 5.4 %; Mean Corpuscular HGB Conc 32.5 g/dL (30.0-36.0); Mean Corpuscular Hemoglobin 31.6 pg (28.0-34.0); Mean Corpuscular Volume 97.2 fL (80-94); Mean Platelet Volume 10.1 fL (7.4-10.4); Monocytes % 0.7 %; Neutrophils # 5.48 10^3/uL (1.8-7.7); Neutrophils % 92.7 %; Nucleated Red Blood Cells % 0.3 %; Platelet Count 202 10^3/cmm (130-400); Red Blood Count 2.85 10^6/uL (4.1-5.3); Red Cell Distribution Width 13.8 % (12.1-15.1); White Blood Count 5.9 10^3/uL (4.0-10.0)
[2020-06-09] MEDS: sodium chloride 0.9% 250 ML 75 ML IV (12:35)
[2020-06-09 13:41] LABS: Slide Review Slide Review Perform
--- NOTE | 2020-06-15 15:45 | ONC FU_ITS ---
[facility] Patient Note Patient: Bernard Alonzo < Unit #: [id number]: 1935 Dictated By: Tja OsorioDate of Visit: Jun 09, 2020 Onc MED Follow-Up/Prog Note Chief Complaint: Esophageal cancer History of Present Illness: Mr. Alonzo is an 85-year-old gentleman who presented with a history of progressive dysphagia since November 2019 along with a 20+ pound weight loss. He underwent EGD on March 18, 2020 which did show a partially obstructing 5 cm long distal esophageal mass starting at 39 cm from incisors up to 44 cm. An upper EUS revealed that the hypoechoic mass invaded muscularis propria and adventitia consistent with T3 disease coupled with the presence of 2 paraesophageal lymph nodes (not amenable to biopsy). 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 He then underwent CT scan of the chest and abdomen on March 30, 2020. This reported the mass involving the distal esophagus near the gastroesophageal junction causing delayed clearance of barium from the esophagus. There are a few prominent to enlarged mediastinal lymph nodes with 1 of the larger lymph nodes measuring 2.0 x 0.9 cm. There were hepatic and left renal cyst no intra-abdominal lymphadenopathy. It was noted that a pacemaker was present as well. A balloon dilatation was performed and the entire stomach was examined and found to be endoscopically normal. PET/CT imaging from 05/21/2020 revealed hypermetabolic activity in the distal esophagus without neighboring FDG lymph node activity or radiographic concern for metastasis. There was no material FDG activity in the mediastinum. He has a past medical history of coronary artery disease/[place], stenting and had been taking aspirin as well as Plavix. It is noted that his past medical history includes heavy drinking until recently . He also has history of hypertension and type 2 diabetes. His past surgical history includes placement of a pacemaker 3 abdominal surgeries (appendectomy and 2 trauma related surgeries). Foot surgery and venous access device placement per Dr Cano. Mr. Alonzo was seen in consultation by radiation oncology???Dr. Arellano and in medical oncology???Dr. Bhagat for further evaluation and recommendations for continuing plan of care. Mr. Alonzo was offered treatment for concurrent chemoradiation as influenced by the CROSS trial. Mr. Garrison began his first chemotherapy treatment on June 02, 2020. He has been treated with carboplatin paclitaxel weekly in combination with daily radiation. Mr. Alonzo was admitted to [facility] on 06/05/2020 with acute nausea vomiting and GI bleeding. He presented to the emergency room with nausea vomiting but had also noticed that he was having increased esophageal pain 2 days prior to his present Tatian to the emergency room. It was noted at that time that his hemoglobin was 7.7. He was felt to have a GI bleeding as well. Mr. Perez stated that he had been taking ibuprofen for pain despite being on aspirin and Plavix for history of coronary artery disease/W[place] and stenting. He had been started on pantoprazole but admitted that he had not been taking it much due to nausea. Mr. Garrison was admitted and received 2 units of PRBCs and underwent endoscopy. It was felt that the bleeding was most likely coming from esophageal tumor with chronic use of the ibuprofen. He did had elevated lactate but was negative CT scan and was felt the elevated lactate was due to the tumor burden. He also underwent PEG tube placement which was uneventful. His hemoglobin remained stable and he was discharged with PEG tube feedings???1 to 1/2 cans 3 times a day as tolerated. His aspirin and Plavix were placed on hold for at least 2 weeks. His carvedilol was placed on hold due to hypotension. He was discharged on 06/08/2020. Mr. Alonzo is here today for follow-up. He states overall he is feeling much better. He has had no further nausea or vomiting. He denies any GI bleeding. He has not having any hematochezia. He denies any hemoptysis. He states he is tolerating the tube feedings well. He denies any new pain. He states he has not taken any more ibuprofen and has had no further pain at present. He does not have hydrocodone 7.5/325 to use as needed for pain. He denies any fever or chills. He denies any mouth sores sore throat or difficulty swallowing. He states his bowels are good. He denies any neuropathy. He is still somewhat weak from surgery but states overall he feels he is doing much better. His ECOG is 2. Staging PET scan done on May 21, 2020 showed hypermetabolic metastatic GE junction with SUV of 9.49. No other suspicious focus of increased uptake seen in chest and abdomen. Came for follow-up, denies any specific complaint except mild to moderate dysphagia to certain foods especially with meats. But accepting liquids and semi-solid reasonably well. No fever chills no nausea or vomiting no diarrhea or constipation. No chest pain Past Medical History: Heart disease Hypertension Type II diabetes Past Surgical History: Appendectomy Foot surgery Pacemaker placement Portacatheter placement () PEG tube placement in 2019 Allergies: No Known Allergies. Medications: Cholecalciferol 1 Capsule (of 25 mcg ) Oral daily Ciprofloxacin 2.5 mL (of 500 mg/5ml -10%) Suspension, when reconstituted Oral q 12 hours for 3 days Ferrous Gluconate 1 Tablet (of 324 (37.5 fe) mg) Oral b.i.d. Finasteride 1 Tablet (of 5 mg) Oral daily HYDROcodone-Acetaminophen 1 Tablet (of 7.5-325 mg) Oral b.i.d. metFORMIN HCl 0.5 Tablet (of 1000 mg) Oral daily metroNIDAZOLE 1 Tablet (of 500 mg) Oral q 8 hours for 3 days Pantoprazole Sodium 40 mg (of 40 mg) Pack Oral b.i.d. Simvastatin 0.5 Tablet (of 80 mg) Oral daily Family History: Mr. Alonzo's mother at age 85: old age, and diabetes. Mr. Alonzo's father at age 35: hunting accident. Mr. Alonzo has 1 brother who is alive. pt states his uncle had colon/stomach cancer. Social History: Mr. Alonzo is . Mr. Alonzo quit smoking 35 years ago but had smoked 3.0 packs/day for 35 years. He quit drinking less than one year ago. His alcohol consumption was 1 drink/day 7 days/week. Review Of Symptoms: Constitutional Denies fevers, chills, night sweats, excessive fatigue or weight loss. Allergic/Immunologic No reactions. Eyes Denies significant visual changes. No diplopia. No amaurosis. ENMT Denies changes in hearing, sore throat, mouth sores, difficulty or changes in swallowing ability, and/or sinus drainage. Endocrine No diabetes, thyroid disease or hormone replacement. Denies hot flashes or night sweats. Hematologic/Lymphatic Denies easy bruising or bleeding. The patient denies any tender or palpable lymph nodes. Respiratory Denies dyspnea on exertion, chest pain, cough or hemoptysis. Denies orthopnea. Cardiovascular Denies anginal chest pain, palpitations or orthopnea. Gastrointestinal Denies nausea, vomiting, diarrhea, GI bleeding, or constipation. Denies change in bowel habits and/or stool color, no heartburn or early satiety. Genitourinary (M) Denies hematuria, dysuria, increased frequency, urgency, hesitancy or incontinence. Musculoskeletal Denies joint pain, swelling or redness. No decreased range of motion. Integumentary Denies chronic rashes, inflammation, ulcerations or skin changes. Neurologic Denies headache, blurred vision, and no areas of focal weakness or numbness. Normal gait. No sensory problems. Psychiatric Denies insomnia, depression, jc or mood swings. Vital Signs: Performed on Jun 09, 2020 11:41 Height - 67.00 in Weight - 152.2 lbs (LOW) BSA - 1.80 sq.m BMI - 23.84 Temperature - 96.9 F (LOW) Pulse - 103 /min (HIGH) Respiration - 18 /min BP - 139/63 mm(hg) O2 Sat - 99 % Pain - 0,2 - Ambulatory/capable of all self-care, unable to perform any work activities. Up and about more than 50% of waking hours. (ECOG) Physical Examination: Constitutional Alert, oriented, no acute distress. Skin pink, warm and dry. Head Normocephalic; atraumatic. Eyes Conjunctivae and sclerae are clear and without icterus. Pupils are reactive and equal. Neck Supple without masses or thyromegaly. No jugular venous distension. Hematologic/Lymphatic No petechiae or purpura. No tender or palpable lymph nodes in the cervical or supraclavicular areas. Respiratory Lungs are clear to auscultation without rhonchi or wheezing. Cardiovascular Regular rate and rhythm of heart without murmurs,clicks, gallops or rubs. Chest Chest is symmetric without chest wall deformities. Right venous access device insertion site is unremarkable. Abdomen Non-tender, non-distended, no masses or ascites. Good bowel sounds noted in all quads. No guarding or rebound tenderness. No pulsatile masses. Back/Spine Non-tender to palpation. Extremities No visible deformities, no cyanosis, clubbing or edema. Musculoskeletal No tenderness or swelling, normal range of motion without obvious weakness. Integumentary No rashes or lesions. Neurologic No sensory or motor deficits, normal cerebellar function, normal gait. Psychiatric Alert and oriented times three. Coherent speech. Verbalizes understanding of our discussions today. Laboratory:Test performed on Jun 09, 2020 12:04 WBC 5.9 10 3/uL RBC 2.85 10 6/uL HGB 9.0 g/dL HCT 27.7 % MCV 97.2 fL MCH 31.6 pg MCHC 32.5 g/dL RDW 13.8 % Platelet Count 202 10 3/cmm MPV 10.1 fL Neutrophils 5.48 10 3/uL Lymphocytes 0.3 10 3/uL Monocytes 0.0 10 3/uL Eosinophils 0.0 10 3/uL Basophils 0.0 10 3/uL Neutrophil % 92.7 % Lymphocyte % 5.4 % Monocyte % 0.7 % Eosinophil % 0.0 % Basophils % 0.2 % NRBC % 0.3 % CBC Slide Review Slide Review Perform SLIDE REVIEW AGREES WITH AUTOMATED RESULT Test performed on Jun 08, 2020 04:52 Glucose 125 mg/dL BUN 8 mg/dL Creatinine 0.6 mg/dL Cr Clearance (Est) 98.03 mL/min Sodium 137 mmol/L Potassium 3.9 mmol/L Chloride 107 mmol/L CO2 24 mmol/L Calcium 7.6 mg/dL Protein, Total 5.0 g/dL Albumin 3.2 g/dL Globulin 1.8 g/dL Bilirubin, Total 0.4 mg/dL Alkaline Phosphatase 48 IU/L AST (SGOT) 20 IU/L ALT (SGPT) 16 IU/L Manual Lymphocytes 23.5 % Manual Monocytes 3.9 % Manual Eosinophils 5.6 % Manual Basophils 0.6 % Test performed on Jun 02, 2020 08:54 Anion Gap 16.3 Impression: 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 Hepatic and left renal cysts. Upper EUS done on April 26, 2020 showed presence of large 19 x 11 mm hypoechoic mass involving all 3 layers of esophagus. There was presence of 2 lymph nodes measuring 15 to 16 mm in size and the region surrounding the esophageal mass, due to lymph nodes being present deep to the mass, no FNA was performed. Aorta with celiac takeoff was unremarkable without any celiac lymphadenopathy Staging CT PET scan done on May 21, 2020 showed hypermetabolic mass at the gastroesophageal junction consistent with esophageal carcinoma. No findings to suggest distant or local regional disease Bew-[id number] diabetes mellitus, on oral hypoglycemic Status post pacemaker Coronary artery disease. Mr. Garrison began concurrent treatment with weekly carboplatin paclitaxel and daily radiation on June 02, 2020. He was admitted to [facility] on June 05, 2020 and discharged on June 08, 2024 acute bleeding due to chronic ibuprofen use in the presence of aspirin and Plavix as well as also for GL tumor. The aspirin Plavix and ibuprofen were stopped. He was started on Protonix and received blood transfusion and is feeling much better today. He also had PEG tube placement for nutrition supplementation while he was inpatient. Plan: 1. Proceed with week 2 carboplatin paclitaxel. His acute bleeding has stopped. His carboplatin did calculate a little higher than last week's dose but I did opt to change it back to 200 mg (which is the dose he received last week)-given that he was just discharged in the hospital. 2. Steroid compliance confirmed. 3. Labs from June 08, 2020 were reviewed in detail and discussed with Mr. Garrison. We recheck his CBC today to double check his hemoglobin. WBC 5.1, hemoglobin 7.5 platelets 174,000 ANC is 3400. Creatinine 0.6 LFTs were normal. Repeat hemoglobin today was 9.0. 4. He will continue with PEG tube feedings 1 to 2 cans of Ensure 3 times daily as tolerated. 5. We will plan to see him back in 1 week with CBC CMP and follow-up. He will be due for week 3 chemotherapy at that time. 6. He was reminded to not take the aspirin, Plavix or ibuprofen. He may use the hydrocodone APAP as needed for pain. 7. Mr. Garrison was instructed to contact us in the interim should questions or problems arise. Signed By: Taj Osorio-BONITA, [facility] Akiko Bhagat MD <<Signature on File>>
[2020-06-16 08:37] LABS: Basophils % 0.5 %; Hemoglobin 9.4 g/dL (11.7-16.6); Lymphocytes # 0.2 10^3/uL (0.8-4.8); Lymphocytes % 7.5 %; Mean Corpuscular HGB Conc 31.3 g/dL (30.0-36.0); Mean Corpuscular Hemoglobin 31.2 pg (28.0-34.0); Mean Corpuscular Volume 99.7 fL (80-94); Mean Platelet Volume 10.1 fL (7.4-10.4); Monocytes % 1.9 %; Neutrophils # 1.88 10^3/uL (1.8-7.7); Neutrophils % 88.7 %; Nucleated Red Blood Cells % 0 %; Platelet Count 335 10^3/cmm (130-400); Red Blood Count 3.01 10^6/uL (4.1-5.3); Red Cell Distribution Width 15.1 % (12.1-15.1); White Blood Count 2.1 10^3/uL (4.0-10.0)
[2020-06-16 08:56] LABS: Alanine Aminotransferase 16 U/L (0-41); Alkaline Phosphatase 77 IU/L (40-130); Anion Gap 15.5 (5-19); Aspartate Amino Transferase 15 U/L (0-40); Blood Urea Nitrogen 18 mg/dL (8-23); Calcium 9.3 mg/dL (8.5-10.5); Carbon Dioxide 23 mmol/L (22-29); Chloride 100 mmol/L (98-107); Globulin 2.4 g/dL (1.3-4.6); Glucose 252 mg/dL (65-115); Osmolality Calculated 288 mOsm/kg (285-295); Potassium 4.5 mmol/L (3.5-5.1); Sodium 134 mmol/L (136-145); Total Bilirubin 0.3 mg/dL (0.15-1.2); Total Protein 6.4 g/dL (6.6-8.7)
[2020-06-16 08:59] LABS: Slide Review Slide Review Perform
--- NOTE | 2020-06-16 14:34 | ONCRAD TMN_ITS ---
Radiation Oncology Weekly Treatment Management Patient: Clinton Wagner MR#: [id number] : 1935 Age: 85 Sex: Male Dictated by: Dr. Pedro Arellano Date of Service: 06/15/2020 Referring Physician(s) : Diagnosis: C15.5 - Malignant neoplasm of lower third of esophagus, Diagnosed 05/03/2020 (Active) T3 N1 M0 distal esophageal adenocarcinoma located at 39-44 cm from the incisors status post balloon dilation to 1.7 cm. EUS revealed 2 paraesophageal lymph nodes not readily amenable to biopsy. Plan: Concurrent chemo radiation therapy to an aggregate dose of 50.4 Gy in 28 fractions (treatment influenced by the CROSS trial) +/- surgery (surgical consultation is pending?). Radiotherapy to date: Course: 2019, Treatment Site: [facility], Ref. ID: [id number], Energy: 15X/6X, Dose/Fx (cGy): 180, #Fx: 5 / 25, Dose Correction (cGy): 0, Total Dose (cGy): 900, Start Date: 06/09/2020, Elapsed Days: 6 Reason for visit: The patient is being seen today as part of their regularly scheduled weekly on treatment visits to assess for acute toxicities from radiotherapy. Interim History: The patient reports being able to swallow Ensure now, and not use his PEG tube. He reports that he is consuming 6 cans/day. His weight is down 4 pounds, and the patient has no other complaints today. Current Medications: CARBOplatin, cholecalciferol, ciprofloxacin, dexamethasone, dexamethasone Sodium Phosphate, diphenhydrAMINE HCl, famotidine in NaCl, ferrous Gluconate, finasteride, hYDROcodone-Acetaminophen, lORazepam, metFORMIN HCl, metroNIDAZOLE, pACLitaxel, palonosetron HCl, pantoprazole Sodium, prochlorperazine Maleate, simvastatin. Allergies: No Known Allergies Review of Systems: Constitutional - Complains of mild fatigue. Complains of change in weight in which it is down 4 lbs. since last seen on 06/02/20. Denies fever and night sweats. Not able to swallow food but is able to drink 6 can per day for Ensure. ENMT - Complains of mouth dryness. Denies dysphagia but has odynophagia and stomatitis. Cardiovascular - Denies chest pain. Respiratory - Denies hiccoughs. Vital Signs: Performed on 06/15/2020 8:54 AM BMI - 23.212 kg/m2 (high), Height - 67.00 in, Weight - 148.2 lbs, Temperature - 97.7 f, Pulse - 84, Respiration - 18, O2 Sat - 100 %, Pain - 0 and BP - 110/ 67 mm(hg). Physical Exam: Appears stable, no skin erythema or desquamation. Lungs are clear to auscultation bilaterally. Performance Status: 1 - No physically strenuous activity, but ambulatory and able to carry out light or sedentary work (e.g. office work, light house work). (ECOG) Lab: None pending in Radiation Oncology. Test performed on 06/08/2020 4:52 AM Manual Monocytes - 3.9 % (low), Calcium - 7.6 mg/dl (low), Protein, Total - 5.0 g/dl (low), Albumin - 3.2 g/dl (low), Globulin - 1.8 g/dl (low), Alkaline Phosphatase - 48 iu/l (low), Test performed on 06/09/2020 12:04 PM RBC - 2.85 10 6/ul (low), HGB - 9.0 g/dl (low), HCT - 27.7 % (low), MCV - 97.2 fl (high), Lymphocytes - 0.3 10 3/ul (low) and Monocytes - 0.0 10 3/ul (low). Imaging: Radiation therapy imaging related to accurate target localization (i.e. KV, MV and CBCT) was reviewed. Appropriate changes, if any, were made to ensure treatment accuracy. Plan: The patient is tolerating therapy reasonably well. Radiotherapy will continue as planned. CPT: 90844 Signed by: Dr. Pedro Arellano 06/16/2020 2:33:09 PM
[2020-06-21 08:31] LABS: Hematocrit 32.6 % (42.0-52.0); Hemoglobin 10.2 g/dL (11.7-16.6); Lymphocytes # 0.1 10^3/uL (0.8-4.8); Lymphocytes % 8.3 %; Mean Corpuscular HGB Conc 31.3 g/dL (30.0-36.0); Mean Corpuscular Hemoglobin 31.5 pg (28.0-34.0); Mean Corpuscular Volume 100.6 fL (80-94); Mean Platelet Volume 9.5 fL (7.4-10.4); Monocytes # 0.1 10^3/uL (0.2-0.9); Monocytes % 14.6 %; Neutrophils % 76.1 %; Nucleated Red Blood Cells % 0 %; Platelet Count 282 10^3/cmm (130-400); Red Blood Count 3.24 10^6/uL (4.1-5.3); Red Cell Distribution Width 15.9 % (12.1-15.1)
[2020-06-21 09:08] LABS: Neutrophils # 0.73 10^3/uL (1.8-7.7)
--- NOTE | 2020-06-24 07:38 | ONCRAD TMN_ITS ---
Radiation Oncology Weekly Treatment Management Patient: Clinton Wagner MR#: [id number] : 1935 Age: 85 Sex: Male Dictated by: Dr. Pedro Arellano Date of Service: 06/22/2020 Referring Physician(s) : Diagnosis: C15.5 - Malignant neoplasm of lower third of esophagus, Diagnosed 05/03/2020 (Active) T3 N1 M0 distal esophageal adenocarcinoma located at 39-44 cm from the incisors status post balloon dilation to 1.7 cm. EUS revealed 2 paraesophageal lymph nodes not readily amenable to biopsy. Plan: Concurrent chemo radiation therapy to an aggregate dose of 50.4 Gy in 28 fractions (treatment influenced by the CROSS trial) +/- surgery (surgical consultation is pending?). Radiotherapy to date: Course: 2019, Treatment Site: [facility], Ref. ID: [id number], Energy: 15X/6X, Dose/Fx (cGy): 180, #Fx: , Dose Correction (cGy): 0, Total Dose (cGy): 1,800, Start Date: 06/09/2020, Elapsed Days: 13 Reason for visit: The patient is being seen today as part of their regularly scheduled weekly on treatment visits to assess for acute toxicities from radiotherapy. Interim History: The patient reports mild odynophagia. Chemotherapy was twice held due to low white count. The patient will consult with a surgeon on Sunday. Current Medications: CARBOplatin, cholecalciferol, ciprofloxacin, dexamethasone, dexamethasone Sodium Phosphate, diphenhydrAMINE HCl, famotidine in NaCl, ferrous Gluconate, finasteride, hYDROcodone-Acetaminophen, lORazepam, metFORMIN HCl, metroNIDAZOLE, neupogen, pACLitaxel, palonosetron HCl, pantoprazole Sodium, prochlorperazine Maleate, simvastatin. Allergies: No Known Allergies Current Complaints/Review of Systems: Constitutional - Complains of severe fatigue. Denies lack of appetite and is drinking Ensure by mouth and has 6 bottles per day, fever, night sweats and change in weight. ENMT - Denies dysphagia but has odynophagia. Cardiovascular - Denies chest pain. Has chest wall pain. Respiratory - Complains of mild dyspnea associated with normal activity. Complains of hiccoughs and usually happens after eating. Denies cough and wheezing. Vital Signs: Performed on 06/22/2020 9:01 AM BMI - 23.337 kg/m2 (high), Height - 67.00 in, Weight - 149.0 lbs, Temperature - 97.3 f, Pulse - 78, Respiration - 20, O2 Sat - 99 %, Pain - 0, BP - 105/ 54 mm(hg)(/low), Performed on 06/22/2020 10:12 AM Height - 67.00 in, Temperature - 96.2 f (low), Pulse - 96 /min, Respiration - 18 /min, O2 Sat - 96 %, Pain - 0, Fatigue - 0 and BP - 112/ 69 mm(hg). Physical Exam: Appears stable, no skin erythema or desquamation. . Lungs CTAB Performance Status: 1 - No physically strenuous activity, but ambulatory and able to carry out light or sedentary work (e.g. office work, light house work). (ECOG) Lab: None pending in Radiation Oncology. Imaging: Radiation therapy imaging related to accurate target localization (i.e. KV, MV and CBCT) was reviewed. Appropriate changes, if any, were made to ensure treatment accuracy. Plan: The patient is tolerating therapy reasonably well. Radiotherapy will continue as planned. CPT: 52646 Signed by: Dr. Pedro Arellano 06/24/2020 7:37:46 AM
--- NOTE | 2020-06-25 07:35 | ONC FU_ITS ---
[facility] Patient Note Patient: Bernard Alonzo Unit #: [id number]: 1935 Dictated By: Taj OsorioDate of Visit: Jun 16, 2020 Onc MED Follow-Up/Prog Note Chief Complaint: Esophageal cancer History of Present Illness: Mr. Alonzo is an 85-year-old gentleman who presented with a history of progressive dysphagia since November 2019 along with a 20+ pound weight loss. He underwent EGD on March 18, 2020 which did show a partially obstructing 5 cm long distal esophageal mass starting at 39 cm from incisors up to 44 cm. An upper EUS revealed that the hypoechoic mass invaded muscularis propria and adventitia consistent with T3 disease coupled with the presence of 2 paraesophageal lymph nodes (not amenable to biopsy). 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 He then underwent CT scan of the chest and abdomen on March 30, 2020. This reported the mass involving the distal esophagus near the gastroesophageal junction causing delayed clearance of barium from the esophagus. There are a few prominent to enlarged mediastinal lymph nodes with 1 of the larger lymph nodes measuring 2.0 x 0.9 cm. There were hepatic and left renal cyst no intra-abdominal lymphadenopathy. It was noted that a pacemaker was present as well. A balloon dilatation was performed and the entire stomach was examined and found to be endoscopically normal. PET/CT imaging from 05/21/2020 revealed hypermetabolic activity in the distal esophagus without neighboring FDG lymph node activity or radiographic concern for metastasis. There was no material FDG activity in the mediastinum. He has a past medical history of coronary artery disease/AK, stenting and had been taking aspirin as well as Plavix. It is noted that his past medical history includes heavy drinking until recently . He also has history of hypertension and type 2 diabetes. His past surgical history includes placement of a pacemaker 3 abdominal surgeries (appendectomy and 2 trauma related surgeries). Foot surgery and venous access device placement per Dr Cano. Mr. Alonzo was seen in consultation by radiation oncology???Dr. Arellano and in medical oncology???Dr. Bhagat for further evaluation and recommendations for continuing plan of care. Staging PET scan done on May 21, 2020 showed hypermetabolic metastatic GE junction with SUV of 9.49. No other suspicious focus of increased uptake seen in chest and abdomen.Mr. Alonzo was offered treatment for concurrent chemoradiation as influenced by the CROSS trial. Mr. Garrison began his first chemotherapy treatment on June 02, 2020. He has been treated with carboplatin paclitaxel weekly in combination with daily radiation. Mr. Alonzo was admitted to [facility] on 06/05/2020 with acute nausea vomiting and GI bleeding. He presented to the emergency room with nausea vomiting but had also noticed that he was having increased esophageal pain 2 days prior to his present Tatian to the emergency room. It was noted at that time that his hemoglobin was 7.7. He was felt to have a GI bleeding as well. Mr. Perez stated that he had been taking ibuprofen for pain despite being on aspirin and Plavix for history of coronary artery disease/AK and stenting. He had been started on pantoprazole but admitted that he had not been taking it much due to nausea. Mr. Garrison was admitted and received 2 units of PRBCs and underwent endoscopy. It was felt that the bleeding was most likely coming from esophageal tumor with chronic use of the ibuprofen. He did had elevated lactate but was negative CT scan and was felt the elevated lactate was due to the tumor burden. He also underwent PEG tube placement which was uneventful. His hemoglobin remained stable and he was discharged with PEG tube feedings???1 to 1/2 cans 3 times a day as tolerated. His aspirin and Plavix were placed on hold for at least 2 weeks. His carvedilol was placed on hold due to hypotension. He was discharged on 06/08/2020. He did resume chemotherapy with Carboplatin/paclitaxel on 06/09/2020. He tolerated it well. Mr. Alonzo is here today for follow-up. He states overall he is feeling good. He denied any bleeding spells and states he is swallowing better and does not always use the feeding tube. He has had no further nausea or vomiting. He denies any GI bleeding. He has not had any hematochezia. He denies any hemoptysis. He states he has not taken any more ibuprofen and has had no further pain at present. He does not have hydrocodone 7.5/325 to use as needed for pain. He denies any fever or chills. He denies any symptoms of COVID-19. He denies any known exposure or any current personal testing for COVID-19. He denies any mouth sores sore throat or difficulty swallowing. He states his bowels are good. He denies any neuropathy. His ECOG is 1. Past Medical History: Heart disease Hypertension Type II diabetes Past Surgical History: Appendectomy Foot surgery Pacemaker placement Portacatheter placement () PEG tube placement in 2019 Allergies: No Known Allergies. Medications: Cholecalciferol 1 Capsule (of 25 mcg ) Oral daily Ciprofloxacin 2.5 mL (of 500 mg/5ml -10%) Suspension, when reconstituted Oral q 12 hours for 3 days Ferrous Gluconate 1 Tablet (of 324 (37.5 fe) mg) Oral b.i.d. Finasteride 1 Tablet (of 5 mg) Oral daily HYDROcodone-Acetaminophen 1 Tablet (of 7.5-325 mg) Oral b.i.d. metFORMIN HCl 0.5 Tablet (of 1000 mg) Oral daily metroNIDAZOLE 1 Tablet (of 500 mg) Oral q 8 hours for 3 days Pantoprazole Sodium 40 mg (of 40 mg) Pack Oral b.i.d. Simvastatin 0.5 Tablet (of 80 mg) Oral daily Family History: Mr. Alonzo's mother at age 85: old age, and diabetes. Mr. Alonzo's father at age 35: hunting accident. Mr. Alonzo has 1 brother who is alive. pt states his uncle had colon/stomach cancer. Social History: Mr. Alonzo is . Mr. Alonzo quit smoking 35 years ago but had smoked 3.0 packs/day for 35 years. He quit drinking less than one year ago. His alcohol consumption was 1 drink/day 7 days/week. Review Of Symptoms: Constitutional Denies fevers, chills, night sweats, excessive fatigue or weight loss. Allergic/Immunologic No reactions. Eyes Denies significant visual changes. No diplopia. No amaurosis. ENMT Denies changes in hearing, sore throat, mouth sores, difficulty or changes in swallowing ability, and/or sinus drainage. Endocrine No diabetes, thyroid disease or hormone replacement. Denies hot flashes or night sweats. Hematologic/Lymphatic Denies easy bruising or bleeding. The patient denies any tender or palpable lymph nodes. Respiratory Denies dyspnea on exertion, chest pain, cough or hemoptysis. Denies orthopnea. Cardiovascular Denies anginal chest pain, palpitations or orthopnea. Gastrointestinal Denies nausea, vomiting, diarrhea, GI bleeding, or constipation. Denies change in bowel habits and/or stool color, no heartburn or early satiety. Genitourinary (M) Denies hematuria, dysuria, increased frequency, urgency, hesitancy or incontinence. Musculoskeletal Denies joint pain, swelling or redness. No decreased range of motion. Integumentary Denies chronic rashes, inflammation, ulcerations or skin changes. Neurologic Denies headache, blurred vision, and no areas of focal weakness or numbness. Normal gait. No sensory problems. Psychiatric Denies insomnia, depression, jc or mood swings. Vital Signs: ,1 - No physically strenuous activity, but ambulatory and able to carry out light or sedentary work (e.g. office work, light house work). (ECOG) Physical Examination: Constitutional Alert, oriented, no acute distress. Skin pink, warm and dry. Head Normocephalic; atraumatic. Eyes Conjunctivae and sclerae are clear and without icterus. Pupils are reactive and equal. Neck Supple without masses or thyromegaly. No jugular venous distension. Hematologic/Lymphatic No petechiae or purpura. No tender or palpable lymph nodes in the cervical or supraclavicular areas. Respiratory Lungs are clear to auscultation without rhonchi or wheezing. Cardiovascular Regular rate and rhythm of heart without murmurs,clicks, gallops or rubs. Chest Chest is symmetric without chest wall deformities. Right venous access device insertion site is unremarkable. Abdomen Non-tender, non-distended, no masses or ascites. Good bowel sounds noted in all quads. No guarding or rebound tenderness. No pulsatile masses. Back/Spine Non-tender to palpation. Extremities No visible deformities, no cyanosis, clubbing or edema. Musculoskeletal No tenderness or swelling, normal range of motion without obvious weakness. Integumentary No rashes or lesions. Neurologic No sensory or motor deficits, normal cerebellar function, normal gait. Psychiatric Alert and oriented times three. Coherent speech. Verbalizes understanding of our discussions today. Laboratory:Test performed on Jun 21, 2020 08:19 Creatinine 0.7 mg/dL Cr Clearance (Est) 84.03 mL/min Test performed on Jun 16, 2020 08:20 Sodium 134 mmol/L Potassium 4.5 mmol/L Chloride 100 mmol/L CO2 23 mmol/L Anion Gap 15.5 BUN 18 mg/dL Glucose 252 mg/dL Osmolality - Calculated 288 mOsm/kg Calcium 9.3 mg/dL Protein, Total 6.4 g/dL Albumin 4.0 g/dL Globulin 2.4 g/dL Bilirubin, Total 0.3 mg/dL ALT (SGPT) 16 U/L AST (SGOT) 15 U/L Alkaline Phosphatase 77 IU/L WBC 2.1 10 3/uL RBC 3.01 10 6/uL HGB 9.4 g/dL HCT 30.0 % MCV 99.7 fL MCH 31.2 pg MCHC 31.3 g/dL RDW 15.1 % Platelet Count 335 10 3/cmm MPV 10.1 fL Neutrophils 1.88 10 3/uL Lymphocytes 0.2 10 3/uL Monocytes 0.0 10 3/uL Eosinophils 0.0 10 3/uL Basophils 0.0 10 3/uL Neutrophil % 88.7 % Lymphocyte % 7.5 % Monocyte % 1.9 % Eosinophil % 0.0 % Basophils % 0.5 % NRBC % 0 % CBC Slide Review Slide Review Perform SLIDE REVIEW AGREES WITH AUTOMATED RESULTS ST Test performed on Jun 08, 2020 04:52 Manual Lymphocytes 23.5 % Manual Monocytes 3.9 % Manual Eosinophils 5.6 % Manual Basophils 0.6 % Impression: 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 Hepatic and left renal cysts. Upper EUS done on April 26, 2020 showed presence of large 19 x 11 mm hypoechoic mass involving all 3 layers of esophagus. There was presence of 2 lymph nodes measuring 15 to 16 mm in size and the region surrounding the esophageal mass, due to lymph nodes being present deep to the mass, no FNA was performed. Aorta with celiac takeoff was unremarkable without any celiac lymphadenopathy Staging CT PET scan done on May 21, 2020 showed hypermetabolic mass at the gastroesophageal junction consistent with esophageal carcinoma. No findings to suggest distant or local regional disease [id number] diabetes mellitus, on oral hypoglycemic Status post pacemaker Coronary artery disease. Mr. Garrison began concurrent treatment with weekly carboplatin paclitaxel and daily radiation on June 02, 2020. He was admitted to [facility] on June 05, 2020 and discharged on June 08, 2024 acute bleeding due to chronic ibuprofen use in the presence of aspirin and Plavix as well as also for GL tumor. The aspirin Plavix and ibuprofen were stopped. He was started on Protonix and received blood transfusion and is feeling much better today. He also had PEG tube placement for nutrition supplementation while he was inpatient. Plan: We will hold planned week 3 carboplatin paclitaxel due to an ANC of 1880. It was 5480 last week. 2. We will plan to decrease his AUC to 1.5 with his next treatment. We may then also need to add growth factors in between treatments for 2 to 3 days to be able to keep him on course. Dr. Bhagat recommended another option could be delaying his treatment and treating him every 8 to 9 days rather than every 7. 3. Labs from June 16, 2020 were reviewed in detail and discussed with Mr. Alonzo and a copy was given to him. WBC 2.1, hemoglobin 9.4 platelets 3 and 35,000 ANC is 1880 potassium 4.5 creatinine 0.7 LFTs are normal. 4. He will continue with prn PEG tube feedings 1 to 2 cans of Ensure 3 times daily as tolerated. 5. We will plan to see him back in 1 week with CBC CMP and follow-up. He will be due for week 3 chemotherapy at that time. 6. He was reminded to not take the aspirin, Plavix or ibuprofen. He may use the hydrocodone APAP as needed for pain. 7. Mr. Garrison was instructed to contact us in the interim should questions or problems arise. Signed By: Taj Osorio-, AYDEN Bhagat MD <<Signature on File>>
== END 2020-06-23 23:59 | disposition home or self-care (01) ==
LOC: ONCMED 05:35
PROVIDERS: Nurse Practitioner; Absent Provider Radiology Radiation Oncology; PCP Emergency Medicine Emergency Medical Services; Visit Provider Internal Medicine Hematology & Oncology
DX: Z51.0 Encounter for antineoplastic radiation therapy (principal); Z51.11 Encounter for antineoplastic chemotherapy; C15.5 Malignant neoplasm of lower third of esophagus; N28.1 Cyst of kidney, acquired; E11.9 Type 2 diabetes mellitus without complications; I25.10 Atherosclerotic heart disease of native coronary artery without angina pectoris; Z95.0 Presence of cardiac pacemaker
CPT/HCPCS: 36591; 77014; 77336; 77386; 77427; 80053; 85025; 96367; 96372; 96413; 96417; 99214; J1100; J1200; J1442; J2469; J3490; J7040; J7050; J9045; J9267

== ENCOUNTER 2020-07-16 06:01 | Outpatient (RCR) | payer OTHER, SELFPAY ==
[2020-06-28 08:23] LABS: Basophils % 0.3 %; Eosinophils # 0.1 10^3/uL (0.0-0.8); Eosinophils % 0.8 %; Hematocrit 33.6 % (42.0-52.0); Hemoglobin 10.4 g/dL (11.7-16.6); Lymphocytes # 0.3 10^3/uL (0.8-4.8); Lymphocytes % 3.1 %; Mean Corpuscular Hemoglobin 31.1 pg (28.0-34.0); Mean Corpuscular Volume 100.6 fL (80-94); Monocytes # 0.7 10^3/uL (0.2-0.9); Neutrophils # 8.05 10^3/uL (1.8-7.7); Neutrophils % 87.2 %; Nucleated Red Blood Cells % 0 %; Platelet Count 175 10^3/cmm (130-400); Red Blood Count 3.34 10^6/uL (4.1-5.3); Red Cell Distribution Width 16.3 % (12.1-15.1); White Blood Count 9.2 10^3/uL (4.0-10.0)
[2020-06-28 08:46] LABS: Alanine Aminotransferase 22 U/L (0-41); Albumin Level 3.5 g/dL (3.5-5.2); Alkaline Phosphatase 117 IU/L (40-130); Anion Gap 14.5 (5-19); Aspartate Amino Transferase 15 U/L (0-40); Blood Urea Nitrogen 24 mg/dL (8-23); Calcium 8.8 mg/dL (8.5-10.5); Carbon Dioxide 25 mmol/L (22-29); Chloride 101 mmol/L (98-107); Glucose 200 mg/dL (65-115); Osmolality Calculated 292 mOsm/kg (285-295); Potassium 4.5 mmol/L (3.5-5.1); Sodium 136 mmol/L (136-145); Total Bilirubin 0.3 mg/dL (0.15-1.2); Total Protein 6.5 g/dL (6.6-8.7)
[2020-06-29] MEDS: sodium chloride 0.9% 250 ML 75 ML IV (09:25)
--- NOTE | 2020-06-29 10:10 | ONC FU_ITS ---
Dr. Bhagat follow up note Patient: Bernard Alonzo < Unit #: [id number]: 1935 Dicatated By: Akiko Bhagat M.D.Date of Visit:Jun 29, 2020 Onc Med Follow-up/Prog Note History of Present Illness: Mr. Alonzo is an 85-year-old gentleman who presented with a history of progressive dysphagia since November 2019 along with a 20+ pound weight loss. He underwent EGD on March 18, 2020 which did show a partially obstructing 5 cm long distal esophageal mass starting at 39 cm from incisors up to 44 cm. An upper EUS revealed that the hypoechoic mass invaded muscularis propria and adventitia consistent with T3 disease coupled with the presence of 2 paraesophageal lymph nodes (not amenable to biopsy). 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 He then underwent CT scan of the chest and abdomen on March 30, 2020. This reported the mass involving the distal esophagus near the gastroesophageal junction causing delayed clearance of barium from the esophagus. There are a few prominent to enlarged mediastinal lymph nodes with 1 of the larger lymph nodes measuring 2.0 x 0.9 cm. There were hepatic and left renal cyst no intra-abdominal lymphadenopathy. It was noted that a pacemaker was present as well. A balloon dilatation was performed and the entire stomach was examined and found to be endoscopically normal. PET/CT imaging from 05/21/2020 revealed hypermetabolic activity in the distal esophagus without neighboring FDG lymph node activity or radiographic concern for metastasis. There was no material FDG activity in the mediastinum. He has a past medical history of coronary artery disease/IA, stenting and had been taking aspirin as well as Plavix. It is noted that his past medical history includes heavy drinking until recently . He also has history of hypertension and type 2 diabetes. His past surgical history includes placement of a pacemaker 3 abdominal surgeries (appendectomy and 2 trauma related surgeries). Foot surgery and venous access device placement per Dr Cano. Mr. Alonzo was seen in consultation by radiation oncology and in medical oncology for further evaluation and recommendations for continuing plan of care. Staging PET scan done on May 21, 2020 showed hypermetabolic metastatic GE junction with SUV of 9.49. No other suspicious focus of increased uptake seen in chest and abdomen.Mr. Alonzo was offered treatment for concurrent chemoradiation as influenced by the CROSS trial. Mr. Garrison began his first chemotherapy treatment on June 02, 2020. He has been treated with carboplatin paclitaxel weekly in combination with daily radiation. Mr. Alonzo was admitted to [facility] on 06/05/2020 with acute nausea vomiting and GI bleeding. He presented to the emergency room with nausea vomiting but had also noticed that he was having increased esophageal pain 2 days prior to his present Tatian to the emergency room. It was noted at that time that his hemoglobin was 7.7. He was felt to have a GI bleeding as well. Mr. Perez stated that he had been taking ibuprofen for pain despite being on aspirin and Plavix for history of coronary artery disease/IA and stenting. He had been started on pantoprazole but admitted that he had not been taking it much due to nausea. Mr. Garrison was admitted and received 2 units of PRBCs and underwent endoscopy. It was felt that the bleeding was most likely coming from esophageal tumor with chronic use of the ibuprofen. He did had elevated lactate but was negative CT scan and was felt the elevated lactate was due to the tumor burden. He also underwent PEG tube placement which was uneventful. His hemoglobin remained stable and he was discharged with PEG tube feedings???1 to 1/2 cans 3 times a day as tolerated. His aspirin and Plavix were placed on hold for at least 2 weeks. His carvedilol was placed on hold due to hypotension. He was discharged on 06/08/2020. He did resume chemotherapy with Carboplatin/paclitaxel on 06/09/2020. He tolerated it well. Came for follow-up, denies any specific complaint today, no fever chills, no nausea or vomiting, no diarrhea constipation, no melena or hematochezia, no jaundice, occasionally indigestion or burning with swallowing otherwise tolerating combined chemoradiation with weekly carboplatin/Taxol well. Patient has seen surgeon for possible post chemo/radiation esophagectomy, as per patient once surgeon noticed PEG tube, immediately he was told that he is not a candidate for esophagectomy. And patient himself was not interested in esophagectomy either. Medications: Cholecalciferol 1 Capsule (of 25 mcg ) Oral daily, Ferrous Gluconate 1 Tablet (of 324 (37.5 fe) mg) Oral b.i.d., Finasteride 1 Tablet (of 5 mg) Oral daily, HYDROcodone-Acetaminophen 1 Tablet (of 7.5-325 mg) Oral b.i.d., metFORMIN HCl 0.5 Tablet (of 1000 mg) Oral daily, Pantoprazole Sodium 40 mg (of 40 mg) Pack Oral b.i.d., Simvastatin 0.5 Tablet (of 80 mg) Oral daily Allergies: No Known Allergies. Review of Systems: Review of Systems is not available for this patient. Vital Signs: Performed on Jun 29, 2020 08:16 Height - 67.00 in Weight - 147.4 lbs (LOW) BSA - 1.78 sq.m BMI - 23.09 Temperature - 97.5 F (LOW) Pulse - 88 /min Respiration - 18 /min BP - 116/69 mm(hg) O2 Sat - 100 % Pain - 0 Performance Status: 1 - No physically strenuous activity, but ambulatory and able to carry out light or sedentary work (e.g. office work, light house work). (ECOG) Physical Examination: ENMT - No mouth sores, no thrush, no jaundice, Respiratory - Lungs are clear to auscultation, Cardiovascular - Regular rate and rhythm of heart, Abdomen - Soft, bowel sounds present, Extremities - No visible edema. Lab/Imaging: Test performed on Jun 29, 2020 08:11 Creatinine 0.7 mg/dL Cr Clearance (Est) 75.6200 mL/min Test performed on Jun 16, 2020 08:20 Sodium 134 mmol/L Potassium 4.5 mmol/L Chloride 100 mmol/L CO2 23 mmol/L Anion Gap 15.5 BUN 18 mg/dL Glucose 252 mg/dL Osmolality - Calculated 288 mOsm/kg Calcium 9.3 mg/dL Protein, Total 6.4 g/dL Albumin 4.0 g/dL Globulin 2.4 g/dL Bilirubin, Total 0.3 mg/dL ALT (SGPT) 16 U/L AST (SGOT) 15 U/L Alkaline Phosphatase 77 IU/L WBC 2.1 10 3/uL RBC 3.01 10 6/uL HGB 9.4 g/dL HCT 30.0 % MCV 99.7 fL MCH 31.2 pg MCHC 31.3 g/dL RDW 15.1 % Platelet Count 335 10 3/cmm MPV 10.1 fL Neutrophils 1.88 10 3/uL Lymphocytes 0.2 10 3/uL Monocytes 0.0 10 3/uL Eosinophils 0.0 10 3/uL Basophils 0.0 10 3/uL Neutrophil % 88.7 % Lymphocyte % 7.5 % Monocyte % 1.9 % Eosinophil % 0.0 % Basophils % 0.5 % NRBC % 0 % CBC Slide Review Slide Review Perform SLIDE REVIEW AGREES WITH AUTOMATED RESULTS ST Test performed on Jun 08, 2020 04:52 Manual Lymphocytes 23.5 % Manual Monocytes 3.9 % Manual Eosinophils 5.6 % Manual Basophils 0.6 % Impression: 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 Hepatic and left renal cysts. Upper EUS done on April 26, 2020 showed presence of large 19 x 11 mm hypoechoic mass involving all 3 layers of esophagus. There was presence of 2 lymph nodes measuring 15 to 16 mm in size and the region surrounding the esophageal mass, due to lymph nodes being present deep to the mass, no FNA was performed. Aorta with celiac takeoff was unremarkable without any celiac lymphadenopathy Staging CT PET scan done on May 21, 2020 showed hypermetabolic mass at the gastroesophageal junction consistent with esophageal carcinoma. No findings to suggest distant or local regional disease [id number] diabetes mellitus, on oral hypoglycemic Status post pacemaker Coronary artery disease. Mr. Garrison began concurrent treatment with weekly carboplatin paclitaxel and daily radiation on June 02, 2020. He was admitted to [facility] on June 05, 2020 and discharged on June 08, 2024 acute bleeding due to chronic ibuprofen use in the presence of aspirin and Plavix as well as also for GL tumor. The aspirin Plavix and ibuprofen were stopped. He was started on Protonix and received blood transfusion and is feeling much better today. He also had PEG tube placement for nutrition supplementation while he was inpatient. Plan: Discussed with patient regarding his labs white blood count 9.2 hemoglobin 10.4 hematocrit 33.6 platelets 175,000 CMP within normal limit except glucose 200 Clinically, patient doing well, tolerating combined chemoradiation with weekly carboplatin/Taxol but with expected side effects. We will proceed with next weekly dose of carboplatin/Taxol today and then he will continue daily Neupogen for 3 days starting in the morning and will repeat CBC on Sunday and if blood count looks reasonable chemotherapy on Sunday. 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 Signed By: Akiko Bhagat M.D. <<Signature on File>>
--- NOTE | 2020-07-01 07:28 | ONCRAD TMN_ITS ---
Radiation Oncology Weekly Treatment Management Patient: Bernard Alonzo MR#: [id number] : 1935 Age: 85 Sex: Male Dictated by: Dr. 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 EUS revealed 2 paraesophageal lymph nodes not readily amenable to biopsy. Plan: Concurrent chemo radiation therapy to an aggregate dose of 50.4 Gy in 28 fractions (treatment influenced by the CROSS trial) +/- surgery (surgical consultation is pending?). Radiotherapy to date: Course: 2019 Treatment Site: [facility], Ref. ID: [id number], Energy: 15X/6X, Dose/Fx (cGy): 180, #Fx: 15 / 25, Dose Correction (cGy): 0, Total Dose (cGy): 2,700, Start Date: 06/09/2020, Elapsed Days: 20 Reason for visit: The patient is being seen today as part of their regularly scheduled weekly on treatment visits to assess for acute toxicities from radiotherapy. Interim History: The patient reports persistent odynophagia, and a prescription for miracle mouthwash was given. The patient also shares that he recently had a surgical consultation, and the surgeon said that he would not be a surgical candidate because a PEG tube was placed rather than a J-tube. The patient's weight is down 1.6 pounds since his last on treatment visit. The patient reports that he is consuming 6 cans of enteral nutrition. Current Medications: CARBOplatin, cholecalciferol, dexamethasone, dexamethasone Sodium Phosphate, diphenhydrAMINE HCl, famotidine in NaCl, ferrous Gluconate, finasteride, hYDROcodone-Acetaminophen, metFORMIN HCl, pACLitaxel, palonosetron HCl, pantoprazole Sodium, prochlorperazine Maleate, simvastatin. Allergies: No Known Allergies Vital Signs: Performed on 06/29/2020 8:16 AM Height - 67.00 in, Weight - 147.4 lbs (low), BSA - 1.78 sq.m, BMI - 23.09, Temperature - 97.5 f (low), Pulse - 88 /min, Respiration - 18 /min, O2 Sat - 100 %, Pain - 0 and BP - 116/ 69 mm(hg). Physical Exam: Appears stable, no skin erythema or desquamation. Performance Status: 3 - Capable of only limited self-care, confined to bed or chair more than 50% of waking hours. (ECOG) Lab: None pending in Radiation Oncology. Test performed on 06/08/2020 4:52 AM Manual Monocytes - 3.9 % (low), Test performed on 06/16/2020 8:20 AM WBC - 2.1 10 3/ul (low), RBC - 3.01 10 6/ul (low), HGB - 9.4 g/dl (low), HCT - 30.0 % (low), MCV - 99.7 fl (high), Lymphocytes - 0.2 10 3/ul (low), Monocytes - 0.0 10 3/ul (low), Sodium - 134 mmol/l (low), Glucose - 252 mg/dl (high) and Protein, Total - 6.4 g/dl (low). Imaging: Radiation therapy imaging related to accurate target localization (i.e. KV, MV and CBCT) was reviewed. Appropriate changes, if any, were made to ensure treatment accuracy. Plan: The patient is tolerating therapy reasonably well. Radiotherapy will continue as planned. CPT: 39318 Signed by: Dr. Pedro Arellano 07/01/2020 7:26:51 AM
[2020-07-05 08:25] LABS: Basophils % 1.2 %; Eosinophils # 0.1 10^3/uL (0.0-0.8); Eosinophils % 2.6 %; Hematocrit 31.6 % (42.0-52.0); Hemoglobin 9.7 g/dL (11.7-16.6); Lymphocytes # 0.2 10^3/uL (0.8-4.8); Lymphocytes % 6.1 %; Mean Corpuscular HGB Conc 30.7 g/dL (30.0-36.0); Mean Corpuscular Hemoglobin 31.6 pg (28.0-34.0); Mean Corpuscular Volume 102.9 fL (80-94); Mean Platelet Volume 10.7 fL (7.4-10.4); Monocytes # 0.2 10^3/uL (0.2-0.9); Neutrophils # 2.82 10^3/uL (1.8-7.7); Neutrophils % 82.5 %; Nucleated Red Blood Cells % 0 %; Platelet Count 143 10^3/cmm (130-400); Red Blood Count 3.07 10^6/uL (4.1-5.3); Red Cell Distribution Width 16.2 % (12.1-15.1); White Blood Count 3.4 10^3/uL (4.0-10.0)
[2020-07-05 09:02] LABS: Alanine Aminotransferase 13 U/L (0-41); Albumin Level 3.8 g/dL (3.5-5.2); Alkaline Phosphatase 124 IU/L (40-130); Anion Gap 12.2 (5-19); Aspartate Amino Transferase 12 U/L (0-40); Blood Urea Nitrogen 21 mg/dL (8-23); Calcium 8.8 mg/dL (8.5-10.5); Carbon Dioxide 25 mmol/L (22-29); Chloride 104 mmol/L (98-107); Globulin 2.4 g/dL (1.3-4.6); Glucose 225 mg/dL (65-115); Osmolality Calculated 294 mOsm/kg (285-295); Potassium 4.2 mmol/L (3.5-5.1); Sodium 137 mmol/L (136-145); Total Bilirubin 0.2 mg/dL (0.15-1.2); Total Protein 6.2 g/dL (6.6-8.7)
[2020-07-06] MEDS: sodium chloride 0.9% 250 ML 75 ML IV (09:27)
--- NOTE | 2020-07-06 14:51 | ONCRAD TMN_ITS ---
Radiation Oncology Weekly Treatment Management Patient: Clinton Wagner MR#: [id number] : 1935 Age: 85 Sex: Male Dictated by: Dr. 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 EUS revealed 2 paraesophageal lymph nodes not readily amenable to biopsy. Plan: Concurrent chemo radiation therapy to an aggregate dose of 50.4 Gy in 28 fractions (treatment influenced by the CROSS trial). (Patient is not a surgical candidate due to preoperative PEG tube insertion). Radiotherapy to date: Course: 2019, Treatment Site: [facility], Ref. ID: [id number], Energy: 15X/6X, Dose/Fx (cGy): 180, #Fx: 20 / 25, Dose Correction (cGy): 0, Total Dose (cGy): 3,600, Start Date: 06/09/2020, End Date: 07/06/2020, Elapsed Days: 27 Reason for visit: The patient is being seen today as part of their regularly scheduled weekly on treatment visits to assess for acute toxicities from radiotherapy. Interim History: The patient reports that he is eating more soft solid foods due to reduced odynophagia. The patient reports that the miracle mouthwash is working adequately. His weight is stable. Current Medications: CARBOplatin, cholecalciferol, dexamethasone, dexamethasone Sodium Phosphate, diphenhydrAMINE HCl, famotidine in NaCl, ferrous Gluconate, finasteride, hYDROcodone-Acetaminophen, lidocaine Viscous HCl, maalox Max, metFORMIN HCl, pACLitaxel, palonosetron HCl, pantoprazole Sodium, prochlorperazine Maleate, simvastatin. Allergies: No Known Allergies Vital Signs: Performed on 07/06/2020 8:57 AM BMI - 23.212 kg/m2 (high), Height - 67.00 in, Weight - 148.2 lbs, Temperature - 97.2 f, Pulse - 72, Respiration - 18, O2 Sat - 100 %, Pain - 0, Fatigue - 5, BP - 119/ 65 mm(hg), Performed on 07/06/2020 9:30 AM Height - 67.00 in, Temperature - 97.1 f (low), Pulse - 63 /min, Respiration - 16 /min, O2 Sat - 98 %, Pain - 0, Fatigue - 5 and BP - 123/ 53 mm(hg)(/low). Physical Exam: Appears stable, no skin erythema or desquamation. Lungs are clear to auscultation bilaterally. Performance Status: 3 - Capable of only limited self-care, confined to bed or chair more than 50% of waking hours. (ECOG) Lab: None pending in Radiation Oncology. Test performed on 06/08/2020 4:52 AM Manual Monocytes - 3.9 % (low), Test performed on 07/05/2020 8:03 AM WBC - 3.4 10 3/ul (low), RBC - 3.07 10 6/ul (low), HGB - 9.7 g/dl (low), HCT - 31.6 % (low), MCV - 102.9 fl (high), RDW - 16.2 % (high), MPV - 10.7 fl (high), Lymphocytes - 0.2 10 3/ul (low), Glucose - 225 mg/dl (high) and Protein, Total - 6.2 g/dl (low). Imaging: Radiation therapy imaging related to accurate target localization (i.e. KV, MV and CBCT) was reviewed. Appropriate changes, if any, were made to ensure treatment accuracy. Plan: The patient is tolerating therapy reasonably well. Radiotherapy will continue as planned. CPT: 58707 Signed by: Dr. Pedro Arellano 07/06/2020 2:49:25 PM
[2020-07-13 08:15] LABS: Basophils % 1.3 %; Eosinophils # 0.1 10^3/uL (0.0-0.8); Eosinophils % 2.6 %; Lymphocytes # 0.1 10^3/uL (0.8-4.8); Lymphocytes % 4.8 %; Mean Corpuscular HGB Conc 31.3 g/dL (30.0-36.0); Mean Corpuscular Hemoglobin 31.6 pg (28.0-34.0); Mean Corpuscular Volume 101.3 fL (80-94); Monocytes # 0.5 10^3/uL (0.2-0.9); Monocytes % 19.7 %; Neutrophils # 1.62 10^3/uL (1.8-7.7); Neutrophils % 70.7 %; Nucleated Red Blood Cells % 1.3 %; Platelet Count 216 10^3/cmm (130-400); Red Blood Count 3.16 10^6/uL (4.1-5.3); Red Cell Distribution Width 17.1 % (12.1-15.1); White Blood Count 2.3 10^3/uL (4.0-10.0)
[2020-07-13 08:40] LABS: Alanine Aminotransferase 11 U/L (0-41); Albumin Level 3.7 g/dL (3.5-5.2); Alkaline Phosphatase 108 IU/L (40-130); Anion Gap 14.3 (5-19); Aspartate Amino Transferase 11 U/L (0-40); Blood Urea Nitrogen 20 mg/dL (8-23); Calcium 8.8 mg/dL (8.5-10.5); Carbon Dioxide 25 mmol/L (22-29); Chloride 103 mmol/L (98-107); Globulin 2.6 g/dL (1.3-4.6); Glucose 189 mg/dL (65-115); Osmolality Calculated 294 mOsm/kg (285-295); Potassium 4.3 mmol/L (3.5-5.1); Sodium 138 mmol/L (136-145); Total Bilirubin 0.2 mg/dL (0.15-1.2); Total Protein 6.3 g/dL (6.6-8.7)
--- NOTE | 2020-07-13 18:04 | ONCRAD TMN_ITS ---
Radiation Oncology Weekly Treatment Management Patient: Clinton Wagner MR#: [id number] : 1935 Age: 85 Sex: Male Dictated by: Dr. 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 EUS revealed 2 paraesophageal lymph nodes not readily amenable to biopsy. Plan: Concurrent chemo radiation therapy to an aggregate dose of 50.4 Gy in 28 fractions (treatment influenced by the CROSS trial). (Patient is not a surgical candidate due to preoperative PEG tube insertion). Initial radiographic surveillance plan: -) CT of the chest/abdomen in 1 month. -) PET/CT in 3 months. Radiotherapy to date: Course: 2019, Treatment Site: [facility], Ref. ID: [id number], Energy: 15X/6X, Dose/Fx (cGy): 180, #Fx: 25 / 25 (boost to follow) , Dose Correction (cGy): 0, Total Dose (cGy): 4,500, Start Date: 06/09/2020, End Date: 07/13/2020, Elapsed Days: 34 Reason for visit: The patient is being seen today as part of their regularly scheduled weekly on treatment visits to assess for acute toxicities from radiotherapy. Interim History: Patient reports persistent odynophagia, but this is improved with miracle mouthwash. The patient also notes that he has had significant alarms associated with his defibrillator device. The patient also shared that he got calls from [place] with regards to his defibrillator device. In addition, the patient asks if it is appropriate for him to resume anticoagulation therapy. From a radiation therapy perspective, there are no current contraindications to resuming anticoagulation therapy as deemed appropriate by his cardiologists. However, the patient was recommended to discuss this with Dr. Bhagat and get his perspective as well. The patient was assured that his defibrillator device is well out of the way of radiation therapy. Current Medications: CARBOplatin, cholecalciferol, dexamethasone, dexamethasone Sodium Phosphate, diphenhydrAMINE HCl, famotidine in NaCl, ferrous Gluconate, finasteride, hYDROcodone-Acetaminophen, lidocaine Viscous HCl, maalox Max, metFORMIN HCl, neupogen, pACLitaxel, palonosetron HCl, pantoprazole Sodium, prochlorperazine Maleate, simvastatin. Allergies: No Known Allergies Current Complaints/Review of Systems: Constitutional - Complains of mild fatigue. Denies lack of appetite, fever, night sweats, rigors / chills and change in weight. ENMT - Complains of dysphagia and also has odynophagia. Denies stomatitis and altered taste. Cardiovascular - Complains of frequent arrhythmias. Denies chest pain. Respiratory - Complains of hiccoughs. Vital Signs: Performed on 07/13/2020 8:42 AM BMI - 23.274 kg/m2 (high), Height - 67.00 in, Weight - 148.6 lbs, Temperature - 98.4 f, Pulse - 86, Respiration - 18, O2 Sat - 98 %, Pain - 0 and BP - 103/ 68 mm(hg). Physical Exam: Appears stable, no skin erythema or desquamation. Lungs are clear to auscultation bilaterally. Performance Status: 3 - Capable of only limited self-care, confined to bed or chair more than 50% of waking hours. (ECOG) Lab: None pending in Radiation Oncology. Imaging: Radiation therapy imaging related to accurate target localization (i.e. KV, MV and CBCT) was reviewed. Appropriate changes, if any, were made to ensure treatment accuracy. Plan: The patient is tolerating therapy reasonably well. Radiotherapy will continue as planned. -) After completion of radiation therapy, I recommend that the patient receive a CT of the chest and abdomen in 1 month, followed by a PET/CT 3 months after completing therapy. -) I will defer to Dr. Bhagat's expertise regarding the patient's question about whether or not to resume anticoagulation therapy. From a radiation oncologist???s perspective, I see no contraindication, but Dr. Bhagat may have an alternative view. Furthermore, the patient's defibrillator alarms are not associated with radiation therapy. The dose to the defibrillator/pacemaker equates to scatter dose only, and the aggregate scatter dose received by this is significantly less than 1 Gy. CPT: [address]: [address] Pedro Arellano 07/13/2020 6:03:22 PM
[2020-07-15 07:56] LABS: Hematocrit 30.1 % (42.0-52.0); Hemoglobin 9.3 g/dL (11.7-16.6); Mean Corpuscular HGB Conc 30.9 g/dL (30.0-36.0); Mean Corpuscular Volume 103.4 fL (80-94); Mean Platelet Volume 10.2 fL (7.4-10.4); Platelet Count 232 10^3/cmm (130-400); Red Blood Count 2.91 10^6/uL (4.1-5.3); Red Cell Distribution Width 18.1 % (12.1-15.1); White Blood Count 19.7 10^3/uL (4.0-10.0)
[2020-07-15 08:15] LABS: Alanine Aminotransferase 11 U/L (0-41); Albumin Level 3.6 g/dL (3.5-5.2); Alkaline Phosphatase 118 IU/L (40-130); Anion Gap 13.1 (5-19); Aspartate Amino Transferase 13 U/L (0-40); Blood Urea Nitrogen 17 mg/dL (8-23); Calcium 8.6 mg/dL (8.5-10.5); Carbon Dioxide 25 mmol/L (22-29); Chloride 104 mmol/L (98-107); Globulin 2.5 g/dL (1.3-4.6); Glucose 157 mg/dL (65-115); Osmolality Calculated 291 mOsm/kg (285-295); Potassium 4.1 mmol/L (3.5-5.1); Sodium 138 mmol/L (136-145); Total Bilirubin 0.2 mg/dL (0.15-1.2); Total Protein 6.1 g/dL (6.6-8.7)
[2020-07-15 08:29] LABS: Slide Review Slide Review Perform
[2020-07-15 08:32] LABS: Absolute Eosinophils 0.1 10^3/cmm (0.0-0.7); Absolute Segmented Neutrophil 7.7 10/cmm (1.6-7.1); Band Neutrophils Absolute 10.8 10^3/cmm (0.0-1.2); Basophils Absolute 0.2 10^3/cmm (0.0-0.2); Eosinophils 1 %; Monocytes Absolute 0.8 10^3/cmm (0.1-0.6); Segmented Neutrophils 39 %; Total Cells Counted 100 (0-100)
[2020-07-15 08:36] LABS: Absolute Neutrophil 18.5 10^3/cmm (1.4-6.5); Dohle Bodies Trace; Macrocytosis 1+; Platelet Estimate Normal (Normal)
[2020-07-15 08:38] LABS: Lymphocytes 0 %
--- NOTE | 2020-07-15 09:37 | ONC FU_ITS ---
[facility] Patient Note Patient: Bernard Alonzo Unit #: [id number]: [id number] Dictated By: Taj OsorioDate of Visit: Jul 15, 2020 Onc MED Follow-Up/Prog Note Chief Complaint: Esophageal cancer History of Present Illness: Mr. Alonzo is an 85-year-old gentleman who presented with a history of progressive dysphagia since November 2019 along with a 20+ pound weight loss. He underwent EGD on March 18, 2020 which did show a partially obstructing 5 cm long distal esophageal mass starting at 39 cm from incisors up to 44 cm. An upper EUS revealed that the hypoechoic mass invaded muscularis propria and adventitia consistent with T3 disease coupled with the presence of 2 paraesophageal lymph nodes (not amenable to biopsy). 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 He then underwent CT scan of the chest and abdomen on March 30, 2020. This reported the mass involving the distal esophagus near the gastroesophageal junction causing delayed clearance of barium from the esophagus. There are a few prominent to enlarged mediastinal lymph nodes with 1 of the larger lymph nodes measuring 2.0 x 0.9 cm. There were hepatic and left renal cyst no intra-abdominal lymphadenopathy. It was noted that a pacemaker was present as well. A balloon dilatation was performed and the entire stomach was examined and found to be endoscopically normal. PET/CT imaging from 05/21/2020 revealed hypermetabolic activity in the distal esophagus without neighboring FDG lymph node activity or radiographic concern for metastasis. There was no material FDG activity in the mediastinum. He has a past medical history of coronary artery disease/CO, stenting and had been taking aspirin as well as Plavix. It is noted that his past medical history includes heavy drinking until recently . He also has history of hypertension and type 2 diabetes. His past surgical history includes placement of a pacemaker 3 abdominal surgeries (appendectomy and 2 trauma related surgeries). Foot surgery and venous access device placement per Dr aCno. Mr. Alonzo was seen in consultation by radiation oncology and in medical oncology for further evaluation and recommendations for continuing plan of care. Staging PET scan done on May 21, 2020 showed hypermetabolic metastatic GE junction with SUV of 9.49. No other suspicious focus of increased uptake seen in chest and abdomen.Mr. Alonzo was offered treatment for concurrent chemoradiation as influenced by the CROSS trial. Mr. Garrison began his first chemotherapy treatment on June 02, 2020. He has been treated with carboplatin paclitaxel weekly in combination with daily radiation. Mr. Alonzo was admitted to [facility] on 06/05/2020 with acute nausea vomiting and GI bleeding. He presented to the emergency room with nausea vomiting but had also noticed that he was having increased esophageal pain 2 days prior to his present Tatian to the emergency room. It was noted at that time that his hemoglobin was 7.7. He was felt to have a GI bleeding as well. Mr. Perez stated that he had been taking ibuprofen for pain despite being on aspirin and Plavix for history of coronary artery disease/CO and stenting. He had been started on pantoprazole but admitted that he had not been taking it much due to nausea. Mr. Garrison was admitted and received 2 units of PRBCs and underwent endoscopy. It was felt that the bleeding was most likely coming from esophageal tumor with chronic use of the ibuprofen. He did had elevated lactate but was negative CT scan and was felt the elevated lactate was due to the tumor burden. He also underwent PEG tube placement which was uneventful. His hemoglobin remained stable and he was discharged with PEG tube feedings???1 to 1/2 cans 3 times a day as tolerated. His aspirin and Plavix were placed on hold for at least 2 weeks. His carvedilol was placed on hold due to hypotension. He was discharged on 06/08/2020. He did resume chemotherapy with Carboplatin/paclitaxel on 06/09/2020. He tolerated it well. Per Dr Bhagat's last office note, Mr Alonzo has seen surgeon for possible post chemo/radiation esophagectomy, as per patient once surgeon noticed PEG tube, immediately he was told that he is not a candidate for esophagectomy. And patient himself was not interested in esophagectomy either. Mr. Alonzo is here today for follow-up. He is due for his last chemotherapy. He completes radiation therapy on Sunday. He has required growth factors in between treatments as he has become neutropenic. His ANC on July 13, 2020 was 1600. He received 2 doses of Neupogen since then and today his ANC is 18,000. He denies any complaints. He states he still has some burning when he eats but states the Maalox helps that. It is no worse, no better but definitely no worse. He denies any bleeding. He has had no hemoptysis. He has had no vomiting, no hematuria and no hematochezia. He states his doctor in [place] wants him to go back on the blood thinner but wanted his family doctor to do that and Dr. Mariano, at the [facility], is his primary care and he did not want to do that until he talk to Dr. Bhagat he denies any TIA type symptoms. He denies any chest pain or palpitations. He states his breathing is good. He denies any fever or chills or any signs infection for at least the last 72 hours. He has had no known Covid exposure, symptoms or pending tests. He states in general he feels pretty good. He is eating solid foods much better now. His ECOG is 1 today. Past Medical History: Heart disease Hypertension Type II diabetes Past Surgical History: Appendectomy Foot surgery Pacemaker placement Portacatheter placement () PEG tube placement in 2019 Allergies: No Known Allergies. Medications: Cholecalciferol 1 Capsule (of 25 mcg ) Oral daily Ferrous Gluconate 1 Tablet (of 324 (37.5 fe) mg) Oral b.i.d. Finasteride 1 Tablet (of 5 mg) Oral daily HYDROcodone-Acetaminophen 1 Tablet (of 7.5-325 mg) Oral b.i.d. Maalox Max Suspension Oral PRN metFORMIN HCl 0.5 Tablet (of 1000 mg) Oral daily Pantoprazole Sodium 40 mg (of 40 mg) Pack Oral b.i.d. Simvastatin 0.5 Tablet (of 80 mg) Oral daily Family History: Mr. Alonzo's mother at age 85: old age, and diabetes. Mr. Alonzo's father at age 35: hunting accident. Mr. Alonzo has 1 brother who is alive. pt states his uncle had colon/stomach cancer. Social History: Mr. Alonzo is . Mr. Alonzo quit smoking 35 years ago but had smoked 3.0 packs/day for 35 years. He quit drinking less than one year ago. His alcohol consumption was 1 drink/day 7 days/week. Review Of Symptoms: Constitutional Denies fevers, chills, night sweats, excessive fatigue or weight loss. Allergic/Immunologic No reactions. Eyes Denies significant visual changes. No diplopia. No amaurosis. ENMT Denies changes in hearing, sore throat, mouth sores, difficulty or changes in swallowing ability, and/or sinus drainage. Endocrine No diabetes, thyroid disease or hormone replacement. Denies hot flashes or night sweats. Hematologic/Lymphatic Denies easy bruising or bleeding. The patient denies any tender or palpable lymph nodes. Respiratory Denies dyspnea on exertion, chest pain, cough or hemoptysis. Denies orthopnea. Cardiovascular Denies anginal chest pain, palpitations or orthopnea. Gastrointestinal Denies nausea, vomiting, diarrhea, GI bleeding, or constipation. Denies change in bowel habits and/or stool color, no heartburn or early satiety. Some burning in epigastric area with eating-controlled with Maalox and Protonix presently. Genitourinary (M) Denies hematuria, dysuria, increased frequency, urgency, hesitancy or incontinence. Musculoskeletal Denies joint pain, swelling or redness. No decreased range of motion. Integumentary Denies chronic rashes, inflammation, ulcerations or skin changes. Neurologic Denies headache, blurred vision, and no areas of focal weakness or numbness. Normal gait. No sensory problems. Psychiatric Denies insomnia, depression, jc or mood swings. Vital Signs: Performed on Jul 15, 2020 08:38 Height - 67.00 in Weight - 150.8 lbs (HIGH) BSA - 1.79 sq.m BMI - 23.62 Temperature - 97.8 F (LOW) Pulse - 94 /min Respiration - 18 /min BP - 118/58 mm(hg) O2 Sat - 100 % Pain - 0,1 - No physically strenuous activity, but ambulatory and able to carry out light or sedentary work (e.g. office work, light house work). (ECOG) Physical Examination: Constitutional Alert, oriented, no acute distress. Skin pink, warm and dry. Head Normocephalic; atraumatic. Eyes Conjunctivae and sclerae are clear and without icterus. Pupils are reactive and equal. Neck Supple without masses or thyromegaly. No jugular venous distension. Hematologic/Lymphatic No petechiae or purpura. No tender or palpable lymph nodes in the cervical or supraclavicular areas. Respiratory Lungs are clear to auscultation without rhonchi or wheezing. Cardiovascular Regular rate and rhythm of heart without murmurs,clicks, gallops or rubs. Chest Chest is symmetric without chest wall deformities. Right venous access device insertion site is unremarkable. Abdomen Non-tender, non-distended, no masses or ascites. Good bowel sounds noted in all quads. No guarding or rebound tenderness. No pulsatile masses. Back/Spine Non-tender to palpation. Extremities No visible deformities, no cyanosis, clubbing or edema. Musculoskeletal No tenderness or swelling, normal range of motion without obvious weakness. Integumentary No rashes or lesions. Neurologic No sensory or motor deficits, normal cerebellar function, normal gait. Psychiatric Alert and oriented times three. Coherent speech. Verbalizes understanding of our discussions today. Laboratory:Test performed on Jul 15, 2020 07:45 Sodium 138 mmol/L Potassium 4.1 mmol/L Chloride 104 mmol/L CO2 25 mmol/L Anion Gap 13.1 BUN 17 mg/dL Creatinine 0.6 mg/dL Cr Clearance (Est) 88.2200 mL/min Glucose 157 mg/dL Osmolality - Calculated 291 mOsm/kg Calcium 8.6 mg/dL Protein, Total 6.1 g/dL Albumin 3.6 g/dL Globulin 2.5 g/dL Bilirubin, Total 0.2 mg/dL ALT (SGPT) 11 U/L AST (SGOT) 13 U/L Alkaline Phosphatase 118 IU/L WBC 19.7 10 3/uL Manual Segs % 39 % Manual Bands % 55.0 % RBC 2.91 10 6/uL HGB 9.3 g/dL Manual Lymphs % 0 % Atypical Lymphs % 0.0 % HCT 30.1 % MCV 103.4 fL Total Cells Counted 100 Manual Monos % 4.0 % MCH 32.0 pg Manual Eos % 1 % MCHC 30.9 g/dL Manual Basos % 1.0 % RDW 18.1 % Platelet Count 232 10 3/cmm MPV 10.2 fL Dohle Bodies Trace CBC Slide Review Slide Review Perform Macrocytosis 1+ Platelet Estimate Normal Manual Segs Abs 7.7 10/cmm Manual Bands Abs 10.8 10 3/cmm Manual Neutrophils Abs 18.5 10 3/cmm Manual Monocytes Abs 0.8 10 3/cmm Manual Eosinophils Abs 0.1 10 3/cmm Manual Basophils Abs 0.2 10 3/cmm Test performed on Jul 13, 2020 08:05 Neutrophils 1.62 10 3/uL Lymphocytes 0.1 10 3/uL Monocytes 0.5 10 3/uL Eosinophils 0.1 10 3/uL Basophils 0.0 10 3/uL Neutrophil % 70.7 % Lymphocyte % 4.8 % Monocyte % 19.7 % Eosinophil % 2.6 % Basophils % 1.3 % NRBC % 1.3 % Impression: 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 Hepatic and left renal cysts. Upper EUS done on April 26, 2020 showed presence of large 19 x 11 mm hypoechoic mass involving all 3 layers of esophagus. There was presence of 2 lymph nodes measuring 15 to 16 mm in size and the region surrounding the esophageal mass, due to lymph nodes being present deep to the mass, no FNA was performed. Aorta with celiac takeoff was unremarkable without any celiac lymphadenopathy Staging CT PET scan done on May 21, 2020 showed hypermetabolic mass at the gastroesophageal junction consistent with esophageal carcinoma. No findings to suggest distant or local regional disease Efi-rhjzxfb-bgsguzmuk diabetes mellitus, on oral hypoglycemic Status post pacemaker Coronary artery disease. Mr. Garrison began concurrent treatment with weekly carboplatin paclitaxel and daily radiation on June 02, 2020. He was admitted to [facility] on June 05, 2020 and discharged on June 08, 2024 acute bleeding due to chronic ibuprofen use in the presence of aspirin and Plavix as well as also for GL tumor. The aspirin Plavix and ibuprofen were stopped. He was started on Protonix and received blood transfusion and is feeling much better today. He also had PEG tube placement for nutrition supplementation while he was inpatient. Mr Alonzo resumed chemotherapy on June 02, 2020. He has tolerated it well in general with the exception of needing growth factor support in between treatments for neutropenia. Plan: 1. Proceed with his last planned chemotherapy. He completes radiation therapy tomorrow. 2. He did not take his premed steroids therefore he will save his last chemotherapy tomorrow. 3. I have requested a PA for Neulasta given this is his last treatment and he has required Neupogen growth factors in between weekly treatments for chemo induced neutropenia. This has prevented him from having febrile neutropenia. 4. Labs from today were reviewed in detail and discussed with Mr. Alonzo and a copy was given to him. WBC is 19.7, hemoglobin 9.3, platelets 232,000 ANC is 18,500 creatinine 0.6 LFTs are normal random glucose was 157. 5. He will continue with prn PEG tube feedings 1 to 2 cans of Ensure 3 times daily as tolerated. 6. We will plan to see him back in 4 weeks with CBC CMP and follow-up. 7. Mr. Alonzo was instructed to contact us in the interim should questions or problems arise. Signed By: Taj Osorio-, CNP Akiko Bhagat MD <<Signature on File>>
[2020-07-16] MEDS: sodium chloride 0.9% 250 ML 75 ML IV (08:53)
[2020-07-16] MEDS: pegfilgrastim 6 mg/0.6 mL Kit (onpro) SUBCUT (11:52)
== END 2020-07-24 23:59 | disposition home or self-care (01) ==
LOC: ONCMED 06:01
PROVIDERS: Nurse Practitioner; Absent Provider Radiology Radiation Oncology; PCP Emergency Medicine Emergency Medical Services; Visit Provider Internal Medicine Hematology & Oncology
DX: Z51.0 Encounter for antineoplastic radiation therapy (principal); Z51.11 Encounter for antineoplastic chemotherapy; C15.5 Malignant neoplasm of lower third of esophagus; E11.9 Type 2 diabetes mellitus without complications; I25.10 Atherosclerotic heart disease of native coronary artery without angina pectoris; K30 Functional dyspepsia; Z79.84 Long term (current) use of oral hypoglycemic drugs; Z95.0 Presence of cardiac pacemaker; Z79.899 Other long term (current) drug therapy; Z93.1 Gastrostomy status
CPT/HCPCS: 36591; 77300; 77336; 77338; 77386; 80053; 85007; 85025; 96367; 96372; 96413; 96417; 99214; J1100; J1200; J1442; J2469; J2505; J3490; J7030; J7050; J9045; J9267

== ENCOUNTER 2020-08-12 05:19 | Outpatient (RCR) | payer OTHER, SELFPAY ==
[2020-07-29 10:41] LABS: Basophils # 0.1 10^3/uL (0.0-0.1); Basophils % 0.6 %; Eosinophils # 0.1 10^3/uL (0.0-0.8); Eosinophils % 1.1 %; Hematocrit 31.5 % (42.0-52.0); Hemoglobin 9.8 g/dL (11.7-16.6); Lymphocytes # 0.4 10^3/uL (0.8-4.8); Lymphocytes % 3.6 %; Mean Corpuscular HGB Conc 31.1 g/dL (30.0-36.0); Mean Corpuscular Hemoglobin 31.6 pg (28.0-34.0); Mean Corpuscular Volume 101.6 fL (80-94); Mean Platelet Volume 10.2 fL (7.4-10.4); Monocytes # 1.1 10^3/uL (0.2-0.9); Neutrophils # 10.41 10^3/uL (1.8-7.7); Neutrophils % 84.9 %; Nucleated Red Blood Cells % 0 %; Platelet Count 218 10^3/cmm (130-400); White Blood Count 12.3 10^3/uL (4.0-10.0)
[2020-07-29 10:59] LABS: Alanine Aminotransferase 11 U/L (0-41); Albumin Level 3.6 g/dL (3.5-5.2); Alkaline Phosphatase 141 IU/L (40-130); Anion Gap 13.2 (5-19); Aspartate Amino Transferase 15 U/L (0-40); Blood Urea Nitrogen 16 mg/dL (8-23); Calcium 8.8 mg/dL (8.5-10.5); Carbon Dioxide 26 mmol/L (22-29); Chloride 102 mmol/L (98-107); Globulin 2.7 g/dL (1.3-4.6); Glucose 89 mg/dL (65-115); Osmolality Calculated 285 mOsm/kg (285-295); Potassium 4.2 mmol/L (3.5-5.1); Sodium 137 mmol/L (136-145); Total Bilirubin 0.2 mg/dL (0.15-1.2); Total Protein 6.3 g/dL (6.6-8.7)
[2020-08-11 10:31] LABS: Basophils # 0.1 10^3/uL (0.0-0.1); Eosinophils # 0.5 10^3/uL (0.0-0.8); Eosinophils % 6.8 %; Hematocrit 32.4 % (42.0-52.0); Hemoglobin 9.9 g/dL (11.7-16.6); Lymphocytes # 0.4 10^3/uL (0.8-4.8); Mean Corpuscular HGB Conc 30.6 g/dL (30.0-36.0); Mean Corpuscular Hemoglobin 30.9 pg (28.0-34.0); Mean Corpuscular Volume 101.3 fL (80-94); Mean Platelet Volume 9.5 fL (7.4-10.4); Monocytes # 0.9 10^3/uL (0.2-0.9); Monocytes % 13.4 %; Neutrophils # 5.13 10^3/uL (1.8-7.7); Neutrophils % 73.7 %; Nucleated Red Blood Cells % 0 %; Platelet Count 255 10^3/cmm (130-400)
[2020-08-11 10:47] LABS: Alanine Aminotransferase 16 U/L (0-41); Albumin Level 3.5 g/dL (3.5-5.2); Alkaline Phosphatase 110 IU/L (40-130); Anion Gap 13.4 (5-19); Aspartate Amino Transferase 14 U/L (0-40); Blood Urea Nitrogen 20 mg/dL (8-23); Calcium 8.9 mg/dL (8.5-10.5); Carbon Dioxide 27 mmol/L (22-29); Chloride 101 mmol/L (98-107); Globulin 2.7 g/dL (1.3-4.6); Glucose 108 mg/dL (65-115); Osmolality Calculated 287 mOsm/kg (285-295); Potassium 4.4 mmol/L (3.5-5.1); Sodium 137 mmol/L (136-145); Total Bilirubin 0.2 mg/dL (0.15-1.2); Total Protein 6.2 g/dL (6.6-8.7)
--- NOTE | 2020-08-13 11:01 | ONC FU_ITS ---
Dr. Bhagat follow up note Patient: Bernard Alonzo < Unit #: [id number]: 1935 Dicatated By: Akiko Bhagat M.D.Date of Visit:Aug 12, 2020 Onc Med Follow-up/Prog Note History of Present Illness: Mr. Alonzo is an 85-year-old gentleman who presented with a history of progressive dysphagia since November 2019 along with a 20+ pound weight loss. He underwent EGD on March 18, 2020 which did show a partially obstructing 5 cm long distal esophageal mass starting at 39 cm from incisors up to 44 cm. An upper EUS revealed that the hypoechoic mass invaded muscularis propria and adventitia consistent with T3 disease coupled with the presence of 2 paraesophageal lymph nodes (not amenable to biopsy). 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 He then underwent CT scan of the chest and abdomen on March 30, 2020. This reported the mass involving the distal esophagus near the gastroesophageal junction causing delayed clearance of barium from the esophagus. There are a few prominent to enlarged mediastinal lymph nodes with 1 of the larger lymph nodes measuring 2.0 x 0.9 cm. There were hepatic and left renal cyst no intra-abdominal lymphadenopathy. It was noted that a pacemaker was present as well. A balloon dilatation was performed and the entire stomach was examined and found to be endoscopically normal. PET/CT imaging from 05/21/2020 revealed hypermetabolic activity in the distal esophagus without neighboring FDG lymph node activity or radiographic concern for metastasis. There was no material FDG activity in the mediastinum. He has a past medical history of coronary artery disease/[place], stenting and had been taking aspirin as well as Plavix. It is noted that his past medical history includes heavy drinking until recently . He also has history of hypertension and type 2 diabetes. His past surgical history includes placement of a pacemaker 3 abdominal surgeries (appendectomy and 2 trauma related surgeries). Foot surgery and venous access device placement per Dr Cano. Mr. Alonzo was seen in consultation by radiation oncology and in medical oncology for further evaluation and recommendations for continuing plan of care. Staging PET scan done on May 21, 2020 showed hypermetabolic metastatic GE junction with SUV of 9.49. No other suspicious focus of increased uptake seen in chest and abdomen.Mr. Alonzo was offered treatment for concurrent chemoradiation as influenced by the CROSS trial. Mr. Garrison began his first chemotherapy treatment on June 02, 2020. He has been treated with carboplatin paclitaxel weekly in combination with daily radiation. Mr. Alonzo was admitted to [facility] on 06/05/2020 with acute nausea vomiting and GI bleeding. He presented to the emergency room with nausea vomiting but had also noticed that he was having increased esophageal pain 2 days prior to his present Tatian to the emergency room. It was noted at that time that his hemoglobin was 7.7. He was felt to have a GI bleeding as well. Mr. Perez stated that he had been taking ibuprofen for pain despite being on aspirin and Plavix for history of coronary artery disease/KS and stenting. He had been started on pantoprazole but admitted that he had not been taking it much due to nausea. Mr. Garrison was admitted and received 2 units of PRBCs and underwent endoscopy. It was felt that the bleeding was most likely coming from esophageal tumor with chronic use of the ibuprofen. He did had elevated lactate but was negative CT scan and was felt the elevated lactate was due to the tumor burden. He also underwent PEG tube placement which was uneventful. His hemoglobin remained stable and he was discharged with PEG tube feedings???1 to 1/2 cans 3 times a day as tolerated. His aspirin and Plavix were placed on hold for at least 2 weeks. His carvedilol was placed on hold due to hypotension. He was discharged on 06/08/2020. He did resume chemotherapy with Carboplatin/paclitaxel on 06/09/2020. He tolerated it well.Completed combined chemoradiation with weekly carboplatin/Taxol on July 16, 2020 Mr Alonzo has seen surgeon for possible post chemo/radiation esophagectomy, as per patient once surgeon noticed PEG tube, immediately he was told that he is not a candidate for esophagectomy. And patient himself was not interested in esophagectomy either. Came for follow-up, denies any specific complaint except indigestion/heartburn especially with burping. But no obvious dysphagia but has not tried solid food yet but tolerating liquids orally well and still has PEG tube. Patient to use 1 pillow under his head. Also complaining of generalized weakness and fatigue but improving. No fever chills, no nausea or vomiting, no diarrhea or constipation, no jaundice, no melena or hematochezia. Medications: Cholecalciferol 1 Capsule (of 25 mcg ) Oral daily, Finasteride 1 Tablet (of 5 mg) Oral daily, HYDROcodone-Acetaminophen 1 Tablet (of 7.5-325 mg) Oral b.i.d., Maalox Max Suspension Oral PRN, metFORMIN HCl 0.5 Tablet (of 1000 mg) Oral daily, Pantoprazole Sodium 40 mg (of 40 mg) Pack Oral b.i.d., Simvastatin 0.5 Tablet (of 80 mg) Oral daily Allergies: No Known Allergies. Review of Systems: Review of Systems is not available for this patient. Vital Signs: Performed on Aug 12, 2020 15:40 Height - 67.00 in Weight - 152.2 lbs (HIGH) BSA - 1.80 sq.m BMI - 23.84 Temperature - 97.0 F (LOW) Pulse - 82 /min Respiration - 24 /min BP - 137/66 mm(hg) O2 Sat - 96 % Pain - 0 Performance Status: 1 - No physically strenuous activity, but ambulatory and able to carry out light or sedentary work (e.g. office work, light house work). (ECOG) Physical Examination: ENMT - No mouth sores, no thrush, no jaundice, Respiratory - Lungs are clear to auscultation, Cardiovascular - Regular rate and rhythm of heart, Abdomen - Soft, bowel sounds present, G site tube clear, Extremities - No visible edema. Lab/Imaging: Test performed on Jul 15, 2020 07:45 Sodium 138 mmol/L Potassium 4.1 mmol/L Chloride 104 mmol/L CO2 25 mmol/L Anion Gap 13.1 BUN 17 mg/dL Creatinine 0.6 mg/dL Cr Clearance (Est) 88.2200 mL/min Glucose 157 mg/dL Osmolality - Calculated 291 mOsm/kg Calcium 8.6 mg/dL Protein, Total 6.1 g/dL Albumin 3.6 g/dL Globulin 2.5 g/dL Bilirubin, Total 0.2 mg/dL ALT (SGPT) 11 U/L AST (SGOT) 13 U/L Alkaline Phosphatase 118 IU/L WBC 19.7 10 3/uL Manual Segs % 39 % Manual Bands % 55.0 % RBC 2.91 10 6/uL HGB 9.3 g/dL Manual Lymphs % 0 % Atypical Lymphs % 0.0 % HCT 30.1 % MCV 103.4 fL Total Cells Counted 100 Manual Monos % 4.0 % MCH 32.0 pg Manual Eos % 1 % MCHC 30.9 g/dL Manual Basos % 1.0 % RDW 18.1 % Platelet Count 232 10 3/cmm MPV 10.2 fL Dohle Bodies Trace CBC Slide Review Slide Review Perform Macrocytosis 1+ Platelet Estimate Normal Manual Segs Abs 7.7 10/cmm Manual Bands Abs 10.8 10 3/cmm Manual Neutrophils Abs 18.5 10 3/cmm Manual Monocytes Abs 0.8 10 3/cmm Manual Eosinophils Abs 0.1 10 3/cmm Manual Basophils Abs 0.2 10 3/cmm Test performed on Jul 13, 2020 08:05 Neutrophils 1.62 10 3/uL Lymphocytes 0.1 10 3/uL Monocytes 0.5 10 3/uL Eosinophils 0.1 10 3/uL Basophils 0.0 10 3/uL Neutrophil % 70.7 % Lymphocyte % 4.8 % Monocyte % 19.7 % Eosinophil % 2.6 % Basophils % 1.3 % NRBC % 1.3 % Impression: 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 Hepatic and left renal cysts. Upper EUS done on April 26, 2020 showed presence of large 19 x 11 mm hypoechoic mass involving all 3 layers of esophagus. There was presence of 2 lymph nodes measuring 15 to 16 mm in size and the region surrounding the esophageal mass, due to lymph nodes being present deep to the mass, no FNA was performed. Aorta with celiac takeoff was unremarkable without any celiac lymphadenopathy Staging CT PET scan done on May 21, 2020 showed hypermetabolic mass at the gastroesophageal junction consistent with esophageal carcinoma. No findings to suggest distant or local regional disease Bqy-qmfjqun-cxqitrtln diabetes mellitus, on oral hypoglycemic Status post pacemaker Coronary artery disease. Mr. Garrison began concurrent treatment with weekly carboplatin paclitaxel and daily radiation on June 02, 2020. He was admitted to [facility] on June 05, 2020 and discharged on June 08, 2024 acute bleeding due to chronic ibuprofen use in the presence of aspirin and Plavix . The aspirin Plavix and ibuprofen were stopped. He was started on Protonix and received blood transfusion He also had PEG tube placement for nutrition supplementation while he was inpatient. Mr Alonzo resumed chemotherapy on June 02, 2020. And completed with weekly carboplatin/Taxol on chemoradiation on July 16, 2020 Plan: Discussed with patient regarding his labs white blood count 7 hemoglobin 9.9 hematocrit 32.4 platelets 255,000 with a normal differential CMP within normal limits Clinically, patient is doing well, now recovering from combined chemoradiation, his lab work-up is stable and patient has persistent mild/moderate anemia, hemoglobin is stable., We will continue to monitor if there is no improvement on return, will consider anemia work-up, considering his age he may have underlying myelodysplasia or could be due to nutritional like iron/B12 deficiency. As per indigestion/heartburn/retrosternal pain is concerned, could be due to esophageal ulceration due to combined chemoradiation or superimposed infection or stricture or persistent disease,, will refer him to GI for EGD and evaluation, patient was advised to use Tums or Rolaids on as-needed basis and also elevate upper part of body with 2-3 pillows Patient will return to clinic in 1 month with CBC and at that time we will schedule him for follow-up CT PET scan Signed By: Akiko Bhagat M.D. <<Signature on File>>
== END 2020-08-23 23:59 | disposition home or self-care (01) ==
LOC: ONCMED 05:19
PROVIDERS: Nurse Practitioner; Absent Provider Radiology Radiation Oncology; PCP Emergency Medicine Emergency Medical Services; Visit Provider Internal Medicine Hematology & Oncology
DX: C15.5 Malignant neoplasm of lower third of esophagus (principal); C77.8 Secondary and unspecified malignant neoplasm of lymph nodes of multiple regions; K76.0 Fatty (change of) liver, not elsewhere classified; N28.1 Cyst of kidney, acquired; I25.10 Atherosclerotic heart disease of native coronary artery without angina pectoris; Z95.0 Presence of cardiac pacemaker; D50.9 Iron deficiency anemia, unspecified; D51.9 Vitamin B12 deficiency anemia, unspecified; Z79.01 Long term (current) use of anticoagulants; Z92.21 Personal history of antineoplastic chemotherapy; Z92.3 Personal history of irradiation; Z79.899 Other long term (current) drug therapy
CPT/HCPCS: 36591; 80053; 85025; G0463

== ENCOUNTER 2020-09-22 13:09 | Outpatient (CLI) | payer OTHER, SELFPAY ==
[2020-09-22 13:35] LABS: Basophils % 0.9 %; Eosinophils # 0.1 10^3/uL (0.0-0.8); Eosinophils % 2.8 %; Hematocrit 36.9 % (42.0-52.0); Hemoglobin 11.5 g/dL (11.7-16.6); Lymphocytes # 0.5 10^3/uL (0.8-4.8); Lymphocytes % 11.8 %; Mean Corpuscular HGB Conc 31.2 g/dL (30.0-36.0); Mean Corpuscular Volume 99.5 fL (80-94); Mean Platelet Volume 9.4 fL (7.4-10.4); Monocytes # 0.6 10^3/uL (0.2-0.9); Monocytes % 13.3 %; Neutrophils # 3.26 10^3/uL (1.8-7.7); Nucleated Red Blood Cells % 0 %; Platelet Count 229 10^3/cmm (130-400); Red Blood Count 3.71 10^6/uL (4.1-5.3); Red Cell Distribution Width 16.3 % (12.1-15.1); White Blood Count 4.6 10^3/uL (4.0-10.0)
[2020-09-22 14:08] LABS: Albumin Level 3.7 g/dL (3.5-5.2); Alkaline Phosphatase 118 IU/L (40-130); Anion Gap 13.4 (5-19); Aspartate Amino Transferase 20 U/L (0-40); Blood Urea Nitrogen 21 mg/dL (8-23); Calcium 9.2 mg/dL (8.5-10.5); Carbon Dioxide 27 mmol/L (22-29); Chloride 102 mmol/L (98-107); Globulin 3.2 g/dL (1.3-4.6); Glucose 155 mg/dL (65-115); Osmolality Calculated 292 mOsm/kg (285-295); Potassium 4.4 mmol/L (3.5-5.1); Sodium 138 mmol/L (136-145); Total Bilirubin 0.2 mg/dL (0.15-1.2); Total Protein 6.9 g/dL (6.6-8.7)
[2020-09-22 15:43] LABS: Alanine Aminotransferase 19 U/L (0-41)
--- NOTE | 2020-09-22 16:16 | ONC FU_ITS ---
Dr. Bhagat follow up note Patient: Bernard Alonzo Unit #: [id number]: 1935 Dicatated By: Akiko Bhagat M.D.Date of Visit:Sep 22, 2020 Onc Med Follow-up/Prog Note History of Present Illness: Mr. Alonzo is an 85-year-old gentleman who presented with a history of progressive dysphagia since November 2019 along with a 20+ pound weight loss. He underwent EGD on March 18, 2020 which did show a partially obstructing 5 cm long distal esophageal mass starting at 39 cm from incisors up to 44 cm. An upper EUS revealed that the hypoechoic mass invaded muscularis propria and adventitia consistent with T3 disease coupled with the presence of 2 paraesophageal lymph nodes (not amenable to biopsy). 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 He then underwent CT scan of the chest and abdomen on March 30, 2020. This reported the mass involving the distal esophagus near the gastroesophageal junction causing delayed clearance of barium from the esophagus. There are a few prominent to enlarged mediastinal lymph nodes with 1 of the larger lymph nodes measuring 2.0 x 0.9 cm. There were hepatic and left renal cyst no intra-abdominal lymphadenopathy. It was noted that a pacemaker was present as well. A balloon dilatation was performed and the entire stomach was examined and found to be endoscopically normal. PET/CT imaging from 05/21/2020 revealed hypermetabolic activity in the distal esophagus without neighboring FDG lymph node activity or radiographic concern for metastasis. There was no material FDG activity in the mediastinum. He has a past medical history of coronary artery disease/[place], stenting and had been taking aspirin as well as Plavix. It is noted that his past medical history includes heavy drinking until recently . He also has history of hypertension and type 2 diabetes. His past surgical history includes placement of a pacemaker 3 abdominal surgeries (appendectomy and 2 trauma related surgeries). Foot surgery and venous access device placement per Dr Cano. Mr. Alonzo was seen in consultation by radiation oncology and in medical oncology for further evaluation and recommendations for continuing plan of care. Staging PET scan done on May 21, 2020 showed hypermetabolic metastatic GE junction with SUV of 9.49. No other suspicious focus of increased uptake seen in chest and abdomen.Mr. Alonzo was offered treatment for concurrent chemoradiation as influenced by the CROSS trial. Mr. Garrison began his first chemotherapy treatment on June 02, 2020. He has been treated with carboplatin paclitaxel weekly in combination with daily radiation. Mr. Alonzo was admitted to [facility] on 06/05/2020 with acute nausea vomiting and GI bleeding. He presented to the emergency room with nausea vomiting but had also noticed that he was having increased esophageal pain 2 days prior to his present Tatian to the emergency room. It was noted at that time that his hemoglobin was 7.7. He was felt to have a GI bleeding as well. Mr. Perez stated that he had been taking ibuprofen for pain despite being on aspirin and Plavix for history of coronary artery disease/[place] and stenting. He had been started on pantoprazole but admitted that he had not been taking it much due to nausea. Mr. Garrison was admitted and received 2 units of PRBCs and underwent endoscopy. It was felt that the bleeding was most likely coming from esophageal tumor with chronic use of the ibuprofen. He did had elevated lactate but was negative CT scan and was felt the elevated lactate was due to the tumor burden. He also underwent PEG tube placement which was uneventful. His hemoglobin remained stable and he was discharged with PEG tube feedings???1 to 1/2 cans 3 times a day as tolerated. His aspirin and Plavix were placed on hold for at least 2 weeks. His carvedilol was placed on hold due to hypotension. He was discharged on 06/08/2020. He did resume chemotherapy with Carboplatin/paclitaxel on 06/09/2020. He tolerated it well.Completed combined chemoradiation with weekly carboplatin/Taxol on July 16, 2020 Mr Alonzo has seen surgeon for possible post chemo/radiation esophagectomy, as per patient once surgeon noticed PEG tube, immediately he was told that he is not a candidate for esophagectomy. And patient himself was not interested in esophagectomy either. Because of indigestion and painful swallowing, patient was referred to gastroenterology, patient was evaluated by Dr. Cruz in [place] and patient underwent EGD and esophageal dilatation on August 27, 2020, biopsies were obtained which showed mild chronic inflammation no dysplasia or malignancy seen. As per patient after esophageal dilation, he felt much better and start swallowing food without any problem. Came for follow-up, denies any specific complaints, no fever chills, no nausea or vomiting, no diarrhea or constipation. And dysphagia has improved significantly since esophageal dilatation done on August 27, 2020. Patient is requesting G-tube removal, will refer him to Dr. Mancilla for tube removal. Medications: Cholecalciferol 1 Capsule (of 25 mcg ) Oral daily, Finasteride 1 Tablet (of 5 mg) Oral daily, HYDROcodone-Acetaminophen 1 Tablet (of 7.5-325 mg) Oral b.i.d., Maalox Max Suspension Oral PRN, metFORMIN HCl 0.5 Tablet (of 1000 mg) Oral daily, Pantoprazole Sodium 40 mg (of 40 mg) Pack Oral b.i.d., Simvastatin 0.5 Tablet (of 80 mg) Oral daily Allergies: No Known Allergies. Review of Systems: Constitutional - Appetite is good and weight is steady. No fever, night sweats, or hot flashes. Energy level is fair, ENMT - No sinus congestion/drainage. No mouth sores. Pt recently had esophageal dilation, no difficulty swallowing, Hematologic/Lymphatic - No abnormal bruising or bleeding, Respiratory - No shortness of breath. No cough. No pleuritic pain or hemoptysis, Cardiovascular - No angina pain. No palpitations, Gastrointestinal - No nausea or vomiting. No heartburn or acid reflux. Flucuates between diarrhea and constipation. No blood in the stool or black stools, Genitourinary (M) - No dysuria or hematuria. Positive for urinary frequency and urgency, no incontinence, Musculoskeletal - No joint or bone pain, Neurologic - No headache or dizziness. Positive for slight numbness/tingling in fingertips, Psychiatric - No anxiety or depression. No insomnia. Vital Signs: Performed on Sep 22, 2020 14:21 Height - 67.00 in Weight - 154.8 lbs (HIGH) BSA - 1.81 sq.m BMI - 24.25 Temperature - 97.3 F (LOW) Pulse - 105 /min (HIGH) Respiration - 18 /min BP - 136/69 mm(hg) O2 Sat - 97 % Pain - 0 Performance Status: 0 - Fully active, able to carry on all predisease activities without restrictions. (ECOG) Physical Examination: ENMT - No mouth sores, no thrush, no jaundice, Respiratory - Lungs are clear to auscultation, Cardiovascular - Regular rate and rhythm of heart, Abdomen - Soft, bowel sounds present, G-tube site without any discharge, Extremities - No visible edema. Lab/Imaging: Test performed on Jul 15, 2020 07:45 Sodium 138 mmol/L Potassium 4.1 mmol/L Chloride 104 mmol/L CO2 25 mmol/L Anion Gap 13.1 BUN 17 mg/dL Creatinine 0.6 mg/dL Cr Clearance (Est) 88.2200 mL/min Glucose 157 mg/dL Osmolality - Calculated 291 mOsm/kg Calcium 8.6 mg/dL Protein, Total 6.1 g/dL Albumin 3.6 g/dL Globulin 2.5 g/dL Bilirubin, Total 0.2 mg/dL ALT (SGPT) 11 U/L AST (SGOT) 13 U/L Alkaline Phosphatase 118 IU/L WBC 19.7 10 3/uL Manual Segs % 39 % Manual Bands % 55.0 % RBC 2.91 10 6/uL HGB 9.3 g/dL Manual Lymphs % 0 % Atypical Lymphs % 0.0 % HCT 30.1 % MCV 103.4 fL Total Cells Counted 100 Manual Monos % 4.0 % MCH 32.0 pg Manual Eos % 1 % MCHC 30.9 g/dL Manual Basos % 1.0 % RDW 18.1 % Platelet Count 232 10 3/cmm MPV 10.2 fL Dohle Bodies Trace CBC Slide Review Slide Review Perform Macrocytosis 1+ Platelet Estimate Normal Manual Segs Abs 7.7 10/cmm Manual Bands Abs 10.8 10 3/cmm Manual Neutrophils Abs 18.5 10 3/cmm Manual Monocytes Abs 0.8 10 3/cmm Manual Eosinophils Abs 0.1 10 3/cmm Manual Basophils Abs 0.2 10 3/cmm Test performed on Jul 13, 2020 08:05 Neutrophils 1.62 10 3/uL Lymphocytes 0.1 10 3/uL Monocytes 0.5 10 3/uL Eosinophils 0.1 10 3/uL Basophils 0.0 10 3/uL Neutrophil % 70.7 % Lymphocyte % 4.8 % Monocyte % 19.7 % Eosinophil % 2.6 % Basophils % 1.3 % NRBC % 1.3 % Impression: 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 Hepatic and left renal cysts. Upper EUS done on April 26, 2020 showed presence of large 19 x 11 mm hypoechoic mass involving all 3 layers of esophagus. There was presence of 2 lymph nodes measuring 15 to 16 mm in size and the region surrounding the esophageal mass, due to lymph nodes being present deep to the mass, no FNA was performed. Aorta with celiac takeoff was unremarkable without any celiac lymphadenopathy Staging CT PET scan done on May 21, 2020 showed hypermetabolic mass at the gastroesophageal junction consistent with esophageal carcinoma. No findings to suggest distant or local regional disease Oob-ydzgonb-irsnmxlnc diabetes mellitus, on oral hypoglycemic Status post pacemaker Coronary artery disease. Mr. Garrison began concurrent treatment with weekly carboplatin paclitaxel and daily radiation on June 02, 2020. He was admitted to [facility] on June 05, 2020 and discharged on June 08, 2024 acute bleeding due to chronic ibuprofen use in the presence of aspirin and Plavix . The aspirin Plavix and ibuprofen were stopped. He was started on Protonix and received blood transfusion He also had PEG tube placement for nutrition supplementation while he was inpatient. Mr Alonzo resumed chemotherapy on June 02, 2020. And completed with weekly carboplatin/Taxol on chemoradiation on July 16, 2020 Plan: Discussed with patient regarding his labs white blood count 4.6 hemoglobin 11.5 hematocrit 36.9 platelets 229,000 CMP within normal limits except glucose 155. Esophageal biopsy/dilatation done on August 27, 2020 showed no evidence of malignancy Clinically, patient doing well since esophageal dilatation done on August 27, 2020. Now tolerating orally well except diet technician registered when he take his medication. Denies any aspiration, denies any nausea or vomiting denies any painful swallowing., At patient's request, will refer him to Dr. Mancilla for G-tube removal, as, orally he is tolerating well. As far as anemia is concerned, his follow-up CBC shows significant improvement today his hemoglobin 11.5 g compared to 9.9 g, will continue to monitor We will also schedule for follow-up CT PET scan, as earlier esophageal resection was under consideration but because of G-tube placement, it was not considered. Now we will follow him closely as patient high risk for recurrence. We will continue with monthly port maintenance. And he will return to clinic after follow-up CT PET scan Signed By: Akiko Bhagat M.D. <<Signature on File>>
== END 2020-09-22 13:10 | disposition home or self-care (01) ==
LOC: ONCMED 13:10
PROVIDERS: Absent Provider Radiology Radiation Oncology; PCP Emergency Medicine Emergency Medical Services; Visit Provider Internal Medicine Hematology & Oncology
DX: C15.5 Malignant neoplasm of lower third of esophagus (principal); D64.9 Anemia, unspecified; E11.9 Type 2 diabetes mellitus without complications; I25.10 Atherosclerotic heart disease of native coronary artery without angina pectoris; Z95.0 Presence of cardiac pacemaker; Z79.84 Long term (current) use of oral hypoglycemic drugs; Z92.21 Personal history of antineoplastic chemotherapy; Z92.3 Personal history of irradiation; Z93.1 Gastrostomy status
CPT/HCPCS: 36415; 36591; 80053; 85025; 99214

== ENCOUNTER 2020-10-28 13:44 | Outpatient (CLI) | payer OTHER, SELFPAY ==
[2020-10-28 14:08] LABS: Basophils % 0.6 %; Eosinophils # 0.1 10^3/uL (0.0-0.8); Eosinophils % 2.8 %; Hematocrit 38.3 % (42.0-52.0); Hemoglobin 11.9 g/dL (11.7-16.6); Lymphocytes # 0.4 10^3/uL (0.8-4.8); Lymphocytes % 7.9 %; Mean Corpuscular HGB Conc 31.1 g/dL (30.0-36.0); Mean Corpuscular Hemoglobin 29.8 pg (28.0-34.0); Mean Platelet Volume 9.4 fL (7.4-10.4); Monocytes # 0.6 10^3/uL (0.2-0.9); Monocytes % 12.3 %; Neutrophils # 3.85 10^3/uL (1.8-7.7); Neutrophils % 76.2 %; Nucleated Red Blood Cells % 0 %; Platelet Count 236 10^3/cmm (130-400); Red Blood Count 3.99 10^6/uL (4.1-5.3); Red Cell Distribution Width 15.7 % (12.1-15.1); White Blood Count 5.1 10^3/uL (4.0-10.0)
[2020-10-28 14:32] LABS: Alanine Aminotransferase 16 U/L (0-41); Albumin Level 3.9 g/dL (3.5-5.2); Alkaline Phosphatase 123 IU/L (40-130); Anion Gap 13.3 (5-19); Aspartate Amino Transferase 17 U/L (0-40); Blood Urea Nitrogen 19 mg/dL (8-23); Calcium 9.3 mg/dL (8.5-10.5); Carbon Dioxide 26 mmol/L (22-29); Chloride 101 mmol/L (98-107); Glucose 142 mg/dL (65-115); Osmolality Calculated 287 mOsm/kg (285-295); Potassium 4.3 mmol/L (3.5-5.1); Sodium 136 mmol/L (136-145); Total Bilirubin 0.3 mg/dL (0.15-1.2); Total Protein 6.9 g/dL (6.6-8.7)
== END 2020-10-28 13:45 | disposition home or self-care (01) ==
LOC: ONCMED 13:45
PROVIDERS: PCP Emergency Medicine Emergency Medical Services; Visit Provider Internal Medicine Hematology & Oncology
DX: C15.9 Malignant neoplasm of esophagus, unspecified (principal); D62 Acute posthemorrhagic anemia
CPT/HCPCS: 36591; 80053; 85025

== ENCOUNTER 2020-10-29 05:38 | Outpatient (CLI) | payer OTHER, SELFPAY ==
--- NOTE | 2020-10-29 09:14 | ONC FU_ITS ---
Dr. Bhagat follow up note Patient: Bernard Alonzo Unit #: [id number]: 1935 Dicatated By: Akiko Bhagat M.D.Date of Visit:Oct 29, 2020 Onc Med Follow-up/Prog Note History of Present Illness: Mr. Alonzo is an 85-year-old gentleman who presented with a history of progressive dysphagia since November 2019 along with a 20+ pound weight loss. He underwent EGD on March 18, 2020 which did show a partially obstructing 5 cm long distal esophageal mass starting at 39 cm from incisors up to 44 cm. An upper EUS revealed that the hypoechoic mass invaded muscularis propria and adventitia consistent with T3 disease coupled with the presence of 2 paraesophageal lymph nodes (not amenable to biopsy). 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 He then underwent CT scan of the chest and abdomen on March 30, 2020. This reported the mass involving the distal esophagus near the gastroesophageal junction causing delayed clearance of barium from the esophagus. There are a few prominent to enlarged mediastinal lymph nodes with 1 of the larger lymph nodes measuring 2.0 x 0.9 cm. There were hepatic and left renal cyst no intra-abdominal lymphadenopathy. It was noted that a pacemaker was present as well. A balloon dilatation was performed and the entire stomach was examined and found to be endoscopically normal. PET/CT imaging from 05/21/2020 revealed hypermetabolic activity in the distal esophagus without neighboring FDG lymph node activity or radiographic concern for metastasis. There was no material FDG activity in the mediastinum. He has a past medical history of coronary artery disease/[place], stenting and had been taking aspirin as well as Plavix. It is noted that his past medical history includes heavy drinking until recently . He also has history of hypertension and type 2 diabetes. His past surgical history includes placement of a pacemaker 3 abdominal surgeries (appendectomy and 2 trauma related surgeries). Foot surgery and venous access device placement per Dr Cano. Mr. Alonzo was seen in consultation by radiation oncology and in medical oncology for further evaluation and recommendations for continuing plan of care. Staging PET scan done on May 21, 2020 showed hypermetabolic metastatic GE junction with SUV of 9.49. No other suspicious focus of increased uptake seen in chest and abdomen.Mr. Alonzo was offered treatment for concurrent chemoradiation as influenced by the CROSS trial. Mr. Grarison began his first chemotherapy treatment on June 02, 2020. He has been treated with carboplatin paclitaxel weekly in combination with daily radiation. Mr. Alonzo was admitted to [facility] on 06/05/2020 with acute nausea vomiting and GI bleeding. He presented to the emergency room with nausea vomiting but had also noticed that he was having increased esophageal pain 2 days prior to his present Tatian to the emergency room. It was noted at that time that his hemoglobin was 7.7. He was felt to have a GI bleeding as well. Mr. Perez stated that he had been taking ibuprofen for pain despite being on aspirin and Plavix for history of coronary artery disease/[place] and stenting. He had been started on pantoprazole but admitted that he had not been taking it much due to nausea. Mr. Garrison was admitted and received 2 units of PRBCs and underwent endoscopy. It was felt that the bleeding was most likely coming from esophageal tumor with chronic use of the ibuprofen. He did had elevated lactate but was negative CT scan and was felt the elevated lactate was due to the tumor burden. He also underwent PEG tube placement which was uneventful. His hemoglobin remained stable and he was discharged with PEG tube feedings???1 to 1/2 cans 3 times a day as tolerated. His aspirin and Plavix were placed on hold for at least 2 weeks. His carvedilol was placed on hold due to hypotension. He was discharged on 06/08/2020. He did resume chemotherapy with Carboplatin/paclitaxel on 06/09/2020. He tolerated it well.Completed combined chemoradiation with weekly carboplatin/Taxol on July 16, 2020 Mr Alonzo has seen surgeon for possible post chemo/radiation esophagectomy, as per patient once surgeon noticed PEG tube, immediately he was told that he is not a candidate for esophagectomy. And patient himself was not interested in esophagectomy either. Because of indigestion and painful swallowing, patient was referred to gastroenterology, patient was evaluated by Dr. Cruz in [place] and patient underwent EGD and esophageal dilatation on August 27, 2020, biopsies were obtained which showed mild chronic inflammation no dysplasia or malignancy seen. As per patient after esophageal dilation, he felt much better and start swallowing food without any problem. Follow-up CT PET scan done on October 02, 2020 showed negative for malignancy, radiation therapy inflammatory infiltrate in the medial lower lobes Came for follow-up, denies any specific complaint except mild dysphagia to certain foods otherwise no nausea or vomiting no diarrhea or constipation, no fever chills, no jaundice, no hemoptysis or hematemesis. Patient still have G-tube and is using occasionally. He is scheduled see Dr. Cruz on Sunday for EGD and possible esophageal dilation. Medications: Cholecalciferol 1 Capsule (of 25 mcg ) Oral daily, Finasteride 1 Tablet (of 5 mg) Oral daily, HYDROcodone-Acetaminophen 1 Tablet (of 7.5-325 mg) Oral b.i.d., Maalox Max Suspension Oral PRN, metFORMIN HCl 0.5 Tablet (of 1000 mg) Oral daily, Pantoprazole Sodium 40 mg (of 40 mg) Pack Oral b.i.d., Simvastatin 0.5 Tablet (of 80 mg) Oral daily Allergies: No Known Allergies. Review of Systems: Constitutional - Appetite is good and weight is steady. No fever, night sweats, or hot flashes. Energy level is fair, ENMT - No sinus congestion/drainage. No mouth sores. Pt recently had esophageal dilation, no difficulty swallowing, Hematologic/Lymphatic - No abnormal bruising or bleeding, Respiratory - No shortness of breath. No cough. No pleuritic pain or hemoptysis, Cardiovascular - No angina pain. No palpitations, Gastrointestinal - No nausea or vomiting. No heartburn or acid reflux. Flucuates between diarrhea and constipation. No blood in the stool or black stools, Genitourinary (M) - No dysuria or hematuria. Positive for urinary frequency and urgency, no incontinence, Musculoskeletal - No joint or bone pain, Neurologic - No headache or dizziness. Positive for slight numbness/tingling in fingertips, Psychiatric - No anxiety or depression. No insomnia. Vital Signs: Performed on Oct 29, 2020 08:36 Height - 67.00 in Weight - 153.6 lbs (LOW) BSA - 1.81 sq.m BMI - 24.06 Temperature - 96.3 F (LOW) Pulse - 96 /min Respiration - 18 /min BP - 104/67 mm(hg) O2 Sat - 96 % Pain - 0 Performance Status: 1 - No physically strenuous activity, but ambulatory and able to carry out light or sedentary work (e.g. office work, light house work). (ECOG) Physical Examination: ENMT - No mouth sores, no thrush, no jaundice, Respiratory - Lungs are clear to auscultation, Cardiovascular - Regular rate and rhythm of heart, Abdomen - Soft, bowel sounds present, G-tube site is clean, Extremities - No visible edema. Lab/Imaging: Test performed on Sep 22, 2020 13:24 Sodium 138 mmol/L Potassium 4.4 mmol/L Chloride 102 mmol/L CO2 27 mmol/L Anion Gap 13.4 BUN 21 mg/dL Creatinine 0.7 mg/dL Cr Clearance (Est) 75.6200 mL/min Glucose 155 mg/dL Osmolality - Calculated 292 mOsm/kg Calcium 9.2 mg/dL Protein, Total 6.9 g/dL Albumin 3.7 g/dL Globulin 3.2 g/dL Bilirubin, Total 0.2 mg/dL ALT (SGPT) 19 U/L AST (SGOT) 20 U/L Alkaline Phosphatase 118 IU/L WBC 4.6 10 3/uL RBC 3.71 10 6/uL HGB 11.5 g/dL HCT 36.9 % MCV 99.5 fL MCH 31.0 pg MCHC 31.2 g/dL RDW 16.3 % Platelet Count 229 10 3/cmm MPV 9.4 fL Neutrophils 3.26 10 3/uL Lymphocytes 0.5 10 3/uL Monocytes 0.6 10 3/uL Eosinophils 0.1 10 3/uL Basophils 0.0 10 3/uL Neutrophil % 71.0 % Lymphocyte % 11.8 % Monocyte % 13.3 % Eosinophil % 2.8 % Basophils % 0.9 % NRBC % 0 % Test performed on Jul 15, 2020 07:45 Manual Segs % 39 % Manual Bands % 55.0 % Manual Lymphs % 0 % Atypical Lymphs % 0.0 % Total Cells Counted 100 Manual Monos % 4.0 % Manual Eos % 1 % Manual Basos % 1.0 % Dohle Bodies Trace CBC Slide Review Slide Review Perform Macrocytosis 1+ Platelet Estimate Normal Manual Segs Abs 7.7 10/cmm Manual Bands Abs 10.8 10 3/cmm Manual Neutrophils Abs 18.5 10 3/cmm Manual Monocytes Abs 0.8 10 3/cmm Manual Eosinophils Abs 0.1 10 3/cmm Manual Basophils Abs 0.2 10 3/cmm Impression: 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 Hepatic and left renal cysts. Upper EUS done on April 26, 2020 showed presence of large 19 x 11 mm hypoechoic mass involving all 3 layers of esophagus. There was presence of 2 lymph nodes measuring 15 to 16 mm in size and the region surrounding the esophageal mass, due to lymph nodes being present deep to the mass, no FNA was performed. Aorta with celiac takeoff was unremarkable without any celiac lymphadenopathy Staging CT PET scan done on May 21, 2020 showed hypermetabolic mass at the gastroesophageal junction consistent with esophageal carcinoma. No findings to suggest distant or local regional disease Ogz-blxtdpo-vaiheorsj diabetes mellitus, on oral hypoglycemic Status post pacemaker Coronary artery disease. Mr. Garrison began concurrent treatment with weekly carboplatin paclitaxel and daily radiation on June 02, 2020. He was admitted to [facility] on June 05, 2020 and discharged on June 08, 2024 acute bleeding due to chronic ibuprofen use in the presence of aspirin and Plavix . The aspirin Plavix and ibuprofen were stopped. He was started on Protonix and received blood transfusion He also had PEG tube placement for nutrition supplementation while he was inpatient. Mr Alonzo resumed chemotherapy on June 02, 2020. And completed with weekly carboplatin/Taxol on chemoradiation on July 16, 2020 Plan: Discussed with patient regarding his labs white blood count 5.1 hemoglobin 11.9 hematocrit 38.3 platelets 236,000 CMP within normal limits except glucose 142 and follow-up CT PET scan done on October 02, 2019 which shows no evidence of malignancy Clinically, patient doing well with no signs symptoms just of recurrence of disease his follow-up CT PET scan shows no evidence of malignancy and his lab work-up is in normal range Patient has persistent mild to moderate dysphagia in the past responded to esophageal dilation, now has follow-up appointment with Dr. Cruz on Sunday for EGD and possible esophageal dilation, and he will discuss with Dr. Cruz regarding G-tube removal. He will return to clinic in 3 months with CBC CMP, in the meantime, he will continue with monthly port maintenance Signed By: Akiko Bhagat M.D. <<Signature on File>>
== END 2020-10-29 05:39 | disposition home or self-care (01) ==
LOC: ONCMED 05:38
PROVIDERS: PCP Emergency Medicine Emergency Medical Services; Visit Provider Internal Medicine Hematology & Oncology
DX: Z08 Encounter for follow-up examination after completed treatment for malignant neoplasm (principal); Z85.01 Personal history of malignant neoplasm of esophagus; R13.10 Dysphagia, unspecified; Z92.21 Personal history of antineoplastic chemotherapy; Z92.3 Personal history of irradiation; Z93.1 Gastrostomy status
CPT/HCPCS: 99214

== ENCOUNTER 2020-11-26 09:48 | Outpatient (CLI) | payer OTHER, SELFPAY | END 2020-11-26 09:49 | disposition home or self-care (01) | LOC: ONCMED 09:49 | PROVIDERS: PCP Emergency Medicine Emergency Medical Services; Visit Provider Internal Medicine Hematology & Oncology | DX: Z45.2 Encounter for adjustment and management of vascular access device (principal) | CPT/HCPCS: 96523 ==

== ENCOUNTER 2020-12-31 08:15 | Outpatient (CLI) | payer OTHER, SELFPAY | END 2020-12-31 08:16 | disposition home or self-care (01) | LOC: ONCMED 08:15 | PROVIDERS: PCP Emergency Medicine Emergency Medical Services; Visit Provider Internal Medicine Hematology & Oncology | DX: Z45.2 Encounter for adjustment and management of vascular access device (principal) | CPT/HCPCS: 36591 ==

== ENCOUNTER 2021-01-07 03:48 | Observation (INO) | payer OTHER, MEDICARE, SELFPAY ==
[2021-01-07] VITALS (20 sets, daily range): BP systolic 92–121; BP diastolic 53–83; PULSE 81–109; RESP 13–26; TEMP 36.4–37.5; O2SAT 92–98; BMI 23.5
--- NOTE | 2021-01-07 03:51 | ECG_ITS ---
[facility] Test Date: 2021-01-07 Pat Name: Bernard Alonzo Department: Room: Gender: Male Geophysical Drafter: : 1935 Requested By: Jerad Parker Order Number: [id number] Johnna MD: Israel Barrera M.D. Measurements Intervals [place] Rate: 88 P: ME: QRS: 35 QRSD: 122 T: 91 QT: 380 QTc: 462 Interpretive Statements ATRIAL FLUTTER/TACHYCARDIA MODERATE INTRAVENTRICULAR CONDUCTION DELAY [110+ ms QRS DURATION] NONSPECIFIC T-WAVE ABNORMALITY ABNORMAL RHYTHM ECG INTERPRETATION BASED ON A DEFAULT AGE OF 40 YEARS No previous ECG available for comparison Electronically Signed On 01-07-2021 20:58:37 CDT by Israel Barrera M.D. [email or web address] [email or web address].[employer]/[id number] f
--- NOTE | 2021-01-07 03:51 | XR_ITS ---
WS: [id number] Portable AP upright chest, 01/07/2021 Clinical Data: cp Comparison: Portable chest, 06/05/2020. Findings: The heart is enlarged. There are bibasilar opacities which may represent atelectasis and/or minimal pneumonia. There is a single-lead pacemaker in good position. No nodules or masses are seen. There is a right infusion catheter ending in the superior vena cava. XR/XR chest 1V portable [id number] Impression: 1. Bibasilar opacities which could represent atelectasis and/or pneumonia. 2. Permanent pacemaker and cardiomegaly.
--- NOTE | 2021-01-07 03:58 | ED_ITS ---
Documented by User: Jerad Parker MD 01/07/21 05:43 HPI - Chest Pain General: Chief Complaint: Chest Pain Stated Complaint: chest pain Time Seen by Provider: 01/07/21 03:51 Source: patient and EMS Mode of arrival: EMS Limitations: no limitations History of Present Illness: HPI narrative: 35-year-old male states been having severe chest pain to the night especially the right side. He states is much worse with any movement. He denies any fever. Denies any cough. Denies any shortness of breath. He denies any worsening improving factors. He does have a history of heart disease and has an AICD. He also has a history of throat cancer and is on no current treatments. Patient was given aspirin and nitro in route with minimal relief of his pain. Associated symptoms: Deny abdominal pain, dyspnea, fever(s), nausea or vomiting Review of Systems Const: Denies: fever(s), chills, body aches or change in appetite Eyes: Denies: blurry vision or eye discomfort ENMT: Denies: throat pain or dental pain Card: Denies: chest pain Resp: Denies: dyspnea GI: Denies: abdominal pain, nausea, vomiting or diarrhea : Denies: dysuria Musc: Denies: neck pain or back pain Skin/Breast: Denies: rash Neuro: Denies: headache(s) Psych: Denies: depression Tate/Lymph: Denies: easy bruising All/Imm: Denies: urticaria Physical Exam Const: COMMON NORMALS: no acute distress, patient oriented x3 and healthy appearing HENMT: COMMON NORMALS: normocephalic and atraumatic HEAD & SCALP: normocephalic and atraumatic Eye: COMMON NORMALS: Equal, round and reactive pupils present and EOMs intact bilaterally PUPIL: Yes Equal, round and reactive pupils present Neck/C-Spine: COMMON NORMALS: full ROM and supple Chest: COMMONS NORMALS: normal inspection of the chest and normal palpation of entire chest wall Resp: COMMON NORMALS: normal respiratory effort, No retractions, No use of accessory muscles and clear to auscultation bilaterally AUSCULTATION: clear to auscultation bilaterally Cardio: COMMON NORMALS: regular rate, regular rhythm and No murmurs present (Cardio) RATE: regular rate RHYTHM: regular rhythm GI: COMMON NORMALS: Normal to inspection, nondistended, normoactive bowel sounds present, Soft to palpation, non-tender and no masses PALPATION: Yes S oft to palpation Extremity: COMMON NORMALS: normal to inspection and full ROM Neuro: COMMON NORMALS: patient oriented x3, moves all extremities and no focal motor deficits Psych: COMMON NORMALS: mental status grossly normal, Normal thought process present and cooperative THOUGHT PROCESS: Normal thought process present Skin: COMMON NORMALS: no rashes or lesions noted and no wounds GENERAL SKIN EXAM: no rashes or lesions noted Course Vital Signs: Vital signs: Vital Signs Temperature 99.5 F 01/07/21 03:48 Pulse Rate 102 H 01/07/21 07:29 Respiratory Rate 18 01/07/21 07:50 Blood Pressure 116/65 01/07/21 07:29 Pulse Oximetry 97 01/07/21 07:50 MDM - Chest Pain MDM Narrative: Medical decision making narrative: Patient presents with chest pain been in the center of his chest. Patient's initial troponin here is only minimally elevated. Does have elevated D-dimer. Patient has a history of throat cancer and is pending a CT of his chest and abdomen pelvis. Patient's care turned over to Dr. Colby to follow these CT results. Lab Data: Labs: Lab Results 01/07/21 01/07/21 01/07/21 Range/Units 04:34 04:34 04:34 WBC 10.0 (4.0-10.0) 10^3/ uL RBC 4.04 L (4.1-5.3) 10^6/u L Hgb 12.0 (11.7-16.6) g/dL Hct 37.6 L (42.0-52.0) % MCV 93.1 (80-94) fL MCH 29.7 (28.0-34.0) pg MCHC 31.9 (30.0-36.0) g/dL RDW 16.6 H (12.1-15.1) % Plt Count 224 (130-400) 10^3/c mm MPV 9.2 (7.4-10.4) fL Neut % (Auto) 89.5 % Lymph % (Auto) 2.3 % [place] % (Auto) 7.6 % Eos % (Auto) 0.1 % Baso % (Auto) 0.2 % Neut # (Auto) 8.93 H (1.8-7.7) 10^3/u L Lymph # (Auto) 0.2 L (0.8-4.8) 10^3/u L [place] # (Auto) 0.8 (0.2-0.9) 10^3/u L Eos # (Auto) 0.0 (0.0-0.8) 10^3/u L Baso # (Auto) 0.0 (0.0-0.1) 10^3/u L Nucleated RBC % (a uto) 0 % Nucleated RBCs # 0.0 /100WBC D-Dimer (0-0.59) ug/mIFE U Sodium 136 (136-145) mmol/L Potassium 4.2 (3.5-5.1) mmol/L Chloride 99 (98-107) mmol/L Carbon Dioxide 24 (22-29) mmol/L Anion Gap 17.2 (5-19) BUN 18 (8-23) mg/dL Creatinine 0.8 (0.7-1.2) mg/dL GFR Calculation Not Reportable Glucose 174 H (65-115) mg/dL Calculated Osmolal ity 288 (285-295) mOsm/k g Calcium 8.7 (8.5-10.5) mg/dL Total Bilirubin 0.7 (0.15-1.2) mg/dL AST 15 (0-40) U/L ALT 15 (0-41) U/L Alkaline Phosphata se 113 (40-130) IU/L Troponin T Baselin e 27 H (0-15) ng/L Troponin T 120 Min [place] (0-15) ng/L Delta Troponin T (0-10) ABS# Total Protein 6.4 L (6.6-8.7) g/dL Albumin 4.0 (3.5-5.2) g/dL Globulin 2.4 (1.3-4.6) g/dL Lipase 10 L (13-60) U/L SARS-CoV-2 Ag (Rap id) (Negative) 01/07/21 01/07/21 01/07/21 Range/Units 04:34 06:04 07:34 WBC (4.0-10.0) 10^3/ uL RBC (4.1-5.3) 10^6/u L Hgb (11.7-16.6) g/dL Hct (42.0-52.0) % MCV (80-94) fL MCH (28.0-34.0) pg MCHC (30.0-36.0) g/dL RDW (12.1-15.1) % Plt Count (130-400) 10^3/c mm MPV (7.4-10.4) fL Neut % (Auto) % Lymph % (Auto) % [place] % (Auto) % Eos % (Auto) % Baso % (Auto) % Neut # (Auto) (1.8-7.7) 10^3/u L Lymph # (Auto) (0.8-4.8) 10^3/u L [place] # (Auto) (0.2-0.9) 10^3/u L Eos # (Auto) (0.0-0.8) 10^3/u L Baso # (Auto) (0.0-0.1) 10^3/u L Nucleated RBC % (a uto) % Nucleated RBCs # /100WBC D-Dimer 1.54 H (0-0.59) ug/mIFE U Sodium (136-145) mmol/L Potassium (3.5-5.1) mmol/L Chloride (98-107) mmol/L Carbon Dioxide (22-29) mmol/L Anion Gap (5-19) BUN (8-23) mg/dL Creatinine (0.7-1.2) mg/dL GFR Calculation Glucose (65-115) mg/dL Calculated Osmolal ity (285-295) mOsm/k g Calcium (8.5-10.5) mg/dL Total Bilirubin (0.15-1.2) mg/dL AST (0-40) U/L ALT (0-41) U/L Alkaline Phosphata se (40-130) IU/L Troponin T Baselin e (0-15) ng/L Troponin T 120 Min [place] 25.13 H (0-15) ng/L Delta Troponin T -1.87 L (0-10) ABS# Total Protein (6.6-8.7) g/dL Albumin (3.5-5.2) g/dL Globulin (1.3-4.6) g/dL Lipase (13-60) U/L SARS-CoV-2 Ag (Rap id) Negative (Negative) Imaging Data^: CXR: Attestation: I personally reviewed and interpreted this imaging study as follows: My impression: no acute abnormality EKG Data^: EKG 1: Attestation: I personally reviewed and interpreted this EKG as follows: EKG interpretation date: 01/07/21 EKG interpretation time: 03:54 Interpretation: atrial flutter hr [address] or t wave abnormalities qrs 123 qtc 411 Discharge Plan Discharge Prescriptions: No Action Plavix 75 mg Tablet 75 mg PO DAILY RF: 0 simvastatin 80 mg Tablet 40 mg PO QPM RF: 0 diltiazem HCl 120 mg Tablet 120 mg PO DAILY RF: 0 hydrocodone-acetaminophen 7.5-325 mg Tablet 1 tab PO Q6H PRN (Reason: Pain) RF: 0 pantoprazole 40 mg Tablet,Delayed Release (Dr/Ec) 40 mg PO BID RF: 0 metformin 1,000 mg Tablet 500 mg PO DAILY RF: 0 finasteride 5 mg Tablet 5 mg PO DAILY RF: 0 Sign Out Sign Out Data: Patient Sign Out occurred on 01/07/21 at 06:01. Patient's care was discussed, and care was transferred from to Scott Cisneros DO. Coding Level of Care Code ED [employer] Cleaner for Chg Fwd Exam Comprehensive Documented by User: Scott Cisneros DO 01/07/21 08:05 HPI - Chest Pain General: Chief Complaint: Chest Pain Stated Complaint: chest pain Time Seen by Provider: 01/07/21 03:51 Course Vital Signs: Vital signs: Vital Signs Temperature 99.5 F 01/07/21 03:48 Pulse Rate 102 H 01/07/21 07:29 Respiratory Rate 18 01/07/21 07:50 Blood Pressure 116/65 01/07/21 07:29 Pulse Oximetry 97 01/07/21 07:50 MDM - Chest Pain MDM Narrative: Medical decision making narrative: Initially seen by Dr. Parker is requiring oxygen at time will desat into the mid 80s. CT of his chest was negative for PE there is a question of early pneumonia which is consistent with his pleuritic-like chest pain. His troponins are negative there is no sign of recurrence of his esophageal CA. He is little bit tachycardic as well there is a very slight left shift we will get cultures on him start him on Levaquin we will test him for Covid as well discussed Dr. Gibson and we will place on observation for now and complete the rule out as well. Lab Data: Labs: Lab Results 01/07/21 01/07/21 01/07/21 Range/Units 04:34 04:34 04:34 WBC 10.0 (4.0-10.0) 10^3/ uL RBC 4.04 L (4.1-5.3) 10^6/u L Hgb 12.0 (11.7-16.6) g/dL Hct 37.6 L (42.0-52.0) % MCV 93.1 (80-94) fL MCH 29.7 (28.0-34.0) pg MCHC 31.9 (30.0-36.0) g/dL RDW 16.6 H (12.1-15.1) % Plt Count 224 (130-400) 10^3/c mm MPV 9.2 (7.4-10.4) fL Neut % (Auto) 89.5 % Lymph % (Auto) 2.3 % [place] % (Auto) 7.6 % Eos % (Auto) 0.1 % Baso % (Auto) 0.2 % Neut # (Auto) 8.93 H (1.8-7.7) 10^3/u L Lymph # (Auto) 0.2 L (0.8-4.8) 10^3/u L [place] # (Auto) 0.8 (0.2-0.9) 10^3/u L Eos # (Auto) 0.0 (0.0-0.8) 10^3/u L Baso # (Auto) 0.0 (0.0-0.1) 10^3/u L Nucleated RBC % (a uto) 0 % Nucleated RBCs # 0.0 /100WBC D-Dimer (0-0.59) ug/mIFE U Sodium 136 (136-145) mmol/L Potassium 4.2 (3.5-5.1) mmol/L Chloride 99 (98-107) mmol/L Carbon Dioxide 24 (22-29) mmol/L Anion Gap 17.2 (5-19) BUN 18 (8-23) mg/dL Creatinine 0.8 (0.7-1.2) mg/dL GFR Calculation Not Reportable Glucose 174 H (65-115) mg/dL Calculated Osmolal ity 288 (285-295) mOsm/k g Calcium 8.7 (8.5-10.5) mg/dL Total Bilirubin 0.7 (0.15-1.2) mg/dL AST 15 (0-40) U/L ALT 15 (0-41) U/L Alkaline Phosphata se 113 (40-130) IU/L Troponin T Baselin e 27 H (0-15) ng/L Troponin T 120 Min [place] (0-15) ng/L Delta Troponin T (0-10) ABS# Total Protein 6.4 L (6.6-8.7) g/dL Albumin 4.0 (3.5-5.2) g/dL Globulin 2.4 (1.3-4.6) g/dL Lipase 10 L (13-60) U/L SARS-CoV-2 Ag (Rap id) (Negative) 01/07/21 01/07/21 01/07/21 Range/Units 04:34 06:04 07:34 WBC (4.0-10.0) 10^3/ uL RBC (4.1-5.3) 10^6/u L Hgb (11.7-16.6) g/dL Hct (42.0-52.0) % MCV (80-94) fL MCH (28.0-34.0) pg MCHC (30.0-36.0) g/dL RDW (12.1-15.1) % Plt Count (130-400) 10^3/c mm MPV (7.4-10.4) fL Neut % (Auto) % Lymph % (Auto) % [place] % (Auto) % Eos % (Auto) % Baso % (Auto) % Neut # (Auto) (1.8-7.7) 10^3/u L Lymph # (Auto) (0.8-4.8) 10^3/u L [place] # (Auto) (0.2-0.9) 10^3/u L Eos # (Auto) (0.0-0.8) 10^3/u L Baso # (Auto) (0.0-0.1) 10^3/u L Nucleated RBC % (a uto) % Nucleated RBCs # /100WBC D-Dimer 1.54 H (0-0.59) ug/mIFE U Sodium (136-145) mmol/L Potassium (3.5-5.1) mmol/L Chloride (98-107) mmol/L Carbon Dioxide (22-29) mmol/L Anion Gap (5-19) BUN (8-23) mg/dL Creatinine (0.7-1.2) mg/dL GFR Calculation Glucose (65-115) mg/dL Calculated Osmolal ity (285-295) mOsm/k g Calcium (8.5-10.5) mg/dL Total Bilirubin (0.15-1.2) mg/dL AST (0-40) U/L ALT (0-41) U/L Alkaline Phosphata se (40-130) IU/L Troponin T Baselin e (0-15) ng/L Troponin T 120 Min [place] 25.13 H (0-15) ng/L Delta Troponin T -1.87 L (0-10) ABS# Total Protein (6.6-8.7) g/dL Albumin (3.5-5.2) g/dL Globulin (1.3-4.6) g/dL Lipase (13-60) U/L SARS-CoV-2 Ag (Rap id) Negative (Negative) Discharge Plan Discharge Prescriptions: No Action Plavix 75 mg Tablet 75 mg PO DAILY RF: 0 simvastatin 80 mg Tablet 40 mg PO QPM RF: 0 diltiazem HCl 120 mg Tablet 120 mg PO DAILY RF: 0 hydrocodone-acetaminophen 7.5-325 mg Tablet 1 tab PO Q6H PRN (Reason: Pain) RF: 0 pantoprazole 40 mg Tablet,Delayed Release (Dr/Ec) 40 mg PO BID RF: 0 metformin 1,000 mg Tablet 500 mg PO DAILY RF: 0 finasteride 5 mg Tablet 5 mg PO DAILY RF: 0 Sign Out Sign Out Data: Patient Sign Out occurred on 01/07/21 at 06:01. Patient's care was discussed, and care was transferred from to Scott Cisneros DO. Coding Level of Care Code ED [employer] Cleaner for Oleg Fwd Exam Comprehensive
[2021-01-07] MEDS: HYDROmorphone 1 mg/mL INJ 1 mL IVP ×2 (04:02→04:43)
[2021-01-07] MEDS: ondansetron 2 mg/ML SDV 2 mL 4 MG IVP (04:03)
--- NOTE | 2021-01-07 04:38 | CTR_ITS ---
PROCEDURE INFORMATION: Exam: CTA Chest With Contrast Exam date and time: 01/07/2021 4:42 AM Age: 85 years old Clinical indication: Other: Na; Prior surgery; Surgery type: Port. Defibrillator. Cspine. ; Patient HX: Severe chest pain with dyspnea. Elevated d dimer. History of esophageal cancer. ; Additional info: Cp TECHNIQUE: Imaging protocol: Computed tomographic angiography of the chest with contrast. 3D rendering (Not supervised by radiologist): MIP and/or 3D reconstructed images were created by the technologist. Radiation optimization: All CT scans at this facility use at least one of these dose optimization techniques: automated exposure control; mA and/or kV adjustment per patient size (includes targeted exams where dose is matched to clinical indication); or iterative reconstruction. Contrast material: OMNI 350; Contrast volume: 95 ml; Contrast route: INTRAVENOUS (IV); COMPARISON: CR XR chest 1V portable [id number] 01/07/2021 3:59 AM RADIATION DOSE METRICS: Total DLP (mGy-cm): 1481.23 FINDINGS: Pulmonary arteries: Normal. No pulmonary emboli. Aorta: Unremarkable. No aortic aneurysm. No aortic dissection. Lungs: There is a background of centrilobular emphysema. Ground-glass, patchy and strandy opacities are present in the lung bases bilaterally compatible with pleural and parenchymal scarring and atelectasis. Superimposed bibasilar pneumonia cannot be entirely excluded. Pleural spaces: Unremarkable. No pneumothorax. No pleural effusion. Heart: There is a small pericardial effusion present measuring 8.5 mm posteriorly. Lymph nodes: Unremarkable. No enlarged lymph nodes. Bones/joints: Unremarkable. No acute fracture. Soft tissues: Unremarkable. IMPRESSION: 1. There is no evidence for pulmonary emboli. 2. Bilateral basilar strandy and patchy opacities compatible with pleural and parenchymal scarring or atelectasis. Superimposed bibasilar pneumonia cannot be entirely excluded. 3. Small pericardial effusion posteriorly. PROCEDURE INFORMATION: Exam: CT Abdomen And Pelvis With Contrast Exam date and time: 01/07/2021 4:42 AM Age: 85 years old Clinical indication: Other: Na; Prior surgery; Surgery type: Port. Defibrillator. Cspine. ; Patient HX: Severe chest pain with dyspnea. Elevated d dimer. History of esophageal cancer. ; Additional info: Cp TECHNIQUE: Imaging protocol: Computed tomography of the abdomen and pelvis with contrast. Radiation optimization: All CT scans at this facility use at least one of these dose optimization techniques: automated exposure control; mA and/or kV adjustment per patient size (includes targeted exams where dose is matched to clinical indication); or iterative reconstruction. Contrast material: OMNI 350; Contrast volume: 95 ml; Contrast route: INTRAVENOUS (IV); COMPARISON: CR XR chest 1V portable [id number] 01/07/2021 3:59 AM RADIATION DOSE METRICS: Total DLP (mGy-cm): 1481.23 FINDINGS: Liver: There are small hypoattenuation lesions seen within the liver likely representing benign cysts or hemangiomas. The largest is seen near the soumya hepatis measuring 1.4 x 1.6 cm. Gallbladder and bile ducts: Normal. No calcified stones. No ductal dilation. Pancreas: Normal. No ductal dilation. Spleen: Normal. No splenomegaly. Adrenal glands: Normal. No mass. Kidneys and ureters: There is a 10 mm hypoattenuation cystic mass seen in the upper pole of the left kidney. There is a defect seen in the lateral aspect of the right kidney likely representing the sequela of a renal infarction. Stomach and bowel: Diverticula are present on the colon. There are no inflammatory changes seen to suggest diverticulitis. Appendix: No evidence of appendicitis. Intraperitoneal space: See Liver finding. Vasculature: Calcifications are seen within the abdominal aorta, iliac and femoral arteries bilaterally and within branches of the celiac and superior mesenteric arteries. Lymph nodes: Unremarkable. No enlarged lymph nodes. Urinary bladder: Unremarkable as visualized. Reproductive: Unremarkable as visualized. Bones/joints: Unremarkable. No acute fracture. Soft tissues: Unremarkable. CT/CT angio chest w abd pel w con IMPRESSION: 1. There are no acute abdominal findings. 2. Multiple small hypoattenuation lesions within the liver likely represent benign cysts or hemangiomas. The largest is seen near the soumya hepatis measuring 1.4 x 1.6 cm. No further workup needed. 3. 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 4. Benign appearing left renal cyst measuring 10 mm. No further workup needed. 5. Diverticulosis without evidence of diverticulitis COMMENTS: Consistent with the [employer]'s Incidental Findings Committee white paper (J Am Rae Radiol 2018): Any incidental renal lesion less than 1 cm or classified as too small to characterize, or any incidental cystic renal lesion characterized as simple-appearing, is likely benign. No follow-up imaging is recommended for these lesions per consensus recommendations based on imaging criteria. Radiation Dose CTDIVOL = (mGy): DLP = 1481.23~1481.23 (mGy-cm)
[2021-01-07 04:42] LABS: Basophils % 0.2 %; Eosinophils % 0.1 %; Hematocrit 37.6 % (42.0-52.0); Lymphocytes # 0.2 10^3/uL (0.8-4.8); Lymphocytes % 2.3 %; Mean Corpuscular HGB Conc 31.9 g/dL (30.0-36.0); Mean Corpuscular Hemoglobin 29.7 pg (28.0-34.0); Mean Corpuscular Volume 93.1 fL (80-94); Mean Platelet Volume 9.2 fL (7.4-10.4); Monocytes # 0.8 10^3/uL (0.2-0.9); Monocytes % 7.6 %; Neutrophils # 8.93 10^3/uL (1.8-7.7); Neutrophils % 89.5 %; Nucleated Red Blood Cells % 0 %; Platelet Count 224 10^3/cmm (130-400); Red Blood Count 4.04 10^6/uL (4.1-5.3); Red Cell Distribution Width 16.6 % (12.1-15.1)
[2021-01-07 04:52] LABS: D Dimer 1.54 ug/mIFEU (0-0.59)
[2021-01-07 05:01] LABS: Alanine Aminotransferase 15 U/L (0-41); Alkaline Phosphatase 113 IU/L (40-130); Anion Gap 17.2 (5-19); Aspartate Amino Transferase 15 U/L (0-40); Blood Urea Nitrogen 18 mg/dL (8-23); Calcium 8.7 mg/dL (8.5-10.5); Carbon Dioxide 24 mmol/L (22-29); Chloride 99 mmol/L (98-107); Globulin 2.4 g/dL (1.3-4.6); Glucose 174 mg/dL (65-115); Lipase 10 U/L (13-60); Osmolality Calculated 288 mOsm/kg (285-295); Potassium 4.2 mmol/L (3.5-5.1); Sodium 136 mmol/L (136-145); Total Bilirubin 0.7 mg/dL (0.15-1.2); Total Protein 6.4 g/dL (6.6-8.7)
[2021-01-07 05:03] LABS: Troponin(5th) Baseline 27 ng/L (0-15)
[2021-01-07] MEDS: iohexol 350 mg/mL 100 mL Btl IV (05:46)
--- NOTE | 2021-01-07 05:51 | ECG_ITS ---
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 Measurements Intervals [place] Rate: 91 P: [place]: QRS: 24 QRSD: 122 T: 85 QT: 359 QTc: 442 Interpretive Statements ATRIAL FIBRILLATION WITH ABERRANT CONDUCTION OR VENTRICULAR PREMATURE COMPLEXES MODERATE INTRAVENTRICULAR CONDUCTION DELAY [110+ ms QRS DURATION] NONSPECIFIC T-WAVE ABNORMALITY ABNORMAL RHYTHM ECG No previous ECG available for comparison Electronically Signed On 01-07-2021 21:08:54 CDT by Israel Barrera M.D. [id number]
[2021-01-07 06:36] LABS: Troponin 5 2HR 25.13 ng/L (0-15); Troponin 5 2HR Delta -1.87 ABS# (0-10)
[2021-01-07] MEDS: HYDROmorphone 1 mg/mL INJ 1 mL 0.5 MG IVP (07:50)
[2021-01-07 08:02] LABS: SARS Covid-2 Antigen Negative (Negative)
[2021-01-07] MEDS: levofloxacin-dextrose 5 % 750 MG/150 ML PREMIX 100 MG IV (08:31)
--- NOTE | 2021-01-07 08:51 | P.HP_ITS ---
Providers/Chief Complaint Chief Complaint: chest pain History of Present Illness Bernard Alonzo is a 85 year old male who presents to the hospital today with complaints of chest discomfort. He reports the discomfort is sharp, both sides of his chest and into his back. It has been severe. He states it increases when he takes a deep breath and increases when he lays down. He has not had any nausea. He may have had some shortness of breath. Nothing has really improved the discomfort. He has not had any fevers. He denies any exposure to Covid. He reports he was vaccinated for Covid with both shots with the last one greater than 3 weeks ago. Discomfort started in the night. Review of Systems General: Reports: 10 or more systems reviewed and unremarkable except in HPI and below Const: Denies: fever(s) or chills Eyes: Denies: change in vision ENMT: Reports: other (Difficulty swallowing since diagnosis of esophageal cancer); Denies: throat pain Card: Reports: chest pain Resp: Reports: dyspnea GI: Denies: abdominal pain, nausea or vomiting : Denies: flank pain Musc: Denies: neck pain Skin/Breast: Denies: rash Neuro: Denies: headache(s) Psych: Denies: anxiety Endo: Denies: polyuria Tate/Lymph: Denies: easy bruising All/Imm: Denies: urticaria Medications/Allergies Home Medications Medication Instructions Recorded Confirmed Last Taken Type clopidogrel [Plavix] 75 mg PO DAILY 01/07/21 01/07/21 Unknown History diltiazem HCl 120 mg PO DAILY 01/07/21 01/07/21 Unknown History finasteride 5 mg PO DAILY 01/07/21 01/07/21 Unknown History hydrocodone-acetaminophen 1 tab PO Q6H PRN 01/07/21 01/07/21 Unknown History metformin 500 mg PO DAILY 01/07/21 01/07/21 Unknown History pantoprazole 40 mg PO BID 01/07/21 01/07/21 Unknown History simvastatin 40 mg PO QPM 01/07/21 01/07/21 Unknown History Allergies Allergy/AdvReac Type Severity Reaction Status Date / Time No Known Allergies Allergy Verified 01/07/21 03:54 PFSH Acute PFSH: Medical History (Updated 01/07/21 @ 11:25 by Jatinder Arriaga MD) Atrial flutter Coronary artery disease Diabetes mellitus Esophageal cancer GERD (gastroesophageal reflux disease) Hyperlipidemia Surgical History (Updated 01/07/21 @ 11:23 by Jatinder Arriaga MD) History of permanent cardiac pacemaker placement Family History (Updated 01/07/21 @ 11:24 by Jatinder Arriaga MD) Other CAD (coronary artery disease) Social History (Updated 01/07/21 @ 11:24 by Jatinder Arriaga MD) Smoking and tobacco status: former smoker Alcohol intake: never Supplemental PFSH Information: History of PEG tube and port placement Vitals/I&O/Wt Last Vital Signs Temp 99.5 F 01/07/21 03:48 Pulse 102 H 01/07/21 07:29 Resp 18 01/07/21 07:50 BP 116/65 01/07/21 07:29 Pulse Ox 97 01/07/21 07:50 Weight last 48 hrs Weight 68.039 kg Physical Exam Narrative: EXAM NARRATIVE: General exam is a white male, complaining of chest discomfort HEENT: Pupils equally round. Oropharynx clear. Neck is supple no lymphadenopathy or thyromegaly Cardiovascular regular rate and rhythm, no murmur Lungs clear no wheezing or crackles Abdomen is soft with positive bowel sounds. No obvious organomegaly was deferred Extremities no cyanosis clubbing or edema, cap refill brisk Skin no rash Neuro no focal deficits. Data : 01/07/21 04:34 01/07/21 04:34 Micro: Microbiology 01/07/21 08:17 Blood Culture - Preliminary Blood SPECIMEN COLLECTED 01/07/21 08:18 Blood Culture - Preliminary Blood SPECIMEN COLLECTED Other data: EKG demonstrates atrial flutter, nonspecific ST-T wave changes, normal axis Chest x-ray demonstrates bibasilar infiltrates, pacemaker, port CTA chest abdomen pelvis demonstrate bilateral basilar infiltrates, small posterior pericardial effusion, some chronic abdominal findings Troponin is 27 with repeat of 25. LFTs are normal Rapid Covid negative D-dimer 1.54 A&P Assessment and plan (1) Chest pain: CTA has been performed excluding pulmonary embolism. Likely has pneumonia secondary to pleuritic pain, oxygen requirement. Must also consider pericarditis considering positional changes. Check echocardiogram. Consider giving a dose of ketorolac for pain as narcotics were not effective in the emergency department When I reevaluated the patient after he came to the floor he reported he did not have any discomfort when still, but still had some discomfort when he took a deep breath. I clarified the changes in his discomfort with position and he reported that when he was having his severe pain when he sat up it was somewhat better but did not go completely away. Status: Acute (2) Pneumonia: Blood culture drawn in the ER Sputum culture if can be obtained Levaquin IV Status: Acute (3) Acute and chronic respiratory failure with hypoxia: Oxygen as needed DuoNeb as needed See notations regarding treatment of pneumonia Status: Acute (4) Elevated troponin: Type II elevation Check echocardiogram Status: Acute Additional A&P Information History of esophageal cancer. Currently in remission. Last chemotherapy greater than 3 months ago Atrial flutter. Patient on diltiazem for rate control Coronary artery disease. Continue Plavix and statin Multiple other medical problems as outlined in past medical history Full code Heparin for DVT prophylaxis Attestations Medical Necessity Statement*: Will need less than 2 midnight stay for evaluation and treatment of chest discomfort. Coding Level of Care Code Acute Automatic Spreader Operator for Oleg Loya Diagnoses Chest pain R07.9 Pneumonia J18.9 Acute and chronic respiratory failure with hypoxia J96.21 Elevated troponin R77.8
[2021-01-07] MEDS: heparin 5,000 unit/mL INJ 1 mL 5000 UNIT SUBCUT ×2 (09:47→22:01)
--- NOTE | 2021-01-07 09:51 | ECG_ITS ---
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 Measurements Intervals [place] Rate: 98 P: [place]: QRS: 17 QRSD: 122 T: 90 QT: 363 QTc: 465 Interpretive Statements ATRIAL FLUTTER WITH ABERRANT CONDUCTION OR VENTRICULAR PREMATURE COMPLEXES MODERATE INTRAVENTRICULAR CONDUCTION DELAY [110+ ms QRS DURATION] NONSPECIFIC ST & T-WAVE ABNORMALITY Compared to ECG 01/07/2021 06:06:27 ST (T wave) deviation now present Early repolarization now present Atrial fibrillation no longer present T-wave abnormality still present Electronically Signed On 01-11-2021 12:50:29 CDT by Sudha Green M.D. [id number]
[2021-01-07 10:21] LABS: Troponin 5 6HR 24.74 ng/L (0-15)
[2021-01-07 10:34] LABS: Troponin 5 6HR Delta -2.26 ng/L (0-12)
[2021-01-07] MEDS: finasteride 5 mg Tablet PO (11:20)
[2021-01-07] MEDS: clopidogrel 75 mg Tablet PO (11:20)
[2021-01-07] MEDS: pantoprazole DR 40 mg Tablet PO ×2 (11:20→17:31)
--- NOTE | 2021-01-07 11:29 | USCV_ITS ---
Bernard Alonzo Age: 85 Gender: M : 1935 Exam Date: 01/07/2021 15:48 Ordering Phys: Jatinder Arriaga MD Technologist: Lisseth Thomas Exam Location[place] [facility] [place] Indication: CHEST PAIN BP: / HR: 94 Rhythm: Sinus Technical Quality: Adequate MEASUREMENTS (Male / Female) Normal Values 2D ECHO LV Diastolic Diameter PLAX 4.8 cm 4.2 - 5.9 / 3.9 - 5.3 cm LV Systolic Diameter PLAX 4.2 cm LV Chamber Size 4.4 cm IVS Diastolic Thickness 0.7 cm 0.6 - 1.0 / 0.6 - 0.9 cm IVS Systolic Thickness 0.9 cm LVPW Diastolic Thickness 1.3 cm 0.6 - 1.0 / 0.6 - 0.9 cm LVPW Systolic Thickness 1.5 cm RV Chamber Size 2.2 cm LVOT Diameter 2.0 cm LV Ejection Fraction 2D Teich 28.8 % LV Ejection Fraction MOD 2C 16.4 % LV Ejection Fraction 2C AL 19.5 % LA Diameter 3.2 cm LA Width 2.9 cm LA Height 4.8 cm RA Width 2.5 cm RA Height 4.5 cm Aorta at Sinotubular Diameter 2.4 cm M-MODE LV Diastolic Diameter MM 6.1 cm 4.2 - 5.9 / 3.9 - 5.3 cm LV Systolic Diameter MM 5.5 cm LV Ejection Fraction MM Teich 20.9 % IVS Diastolic Thickness MM 0.7 cm 0.6 - 1.0 / 0.6 - 0.9 cm IVS Systolic Thickness MM 0.8 cm LVPW Diastolic Thickness MM 1.2 cm 0.6 - 1.0 / 0.6 - 0.9 cm LVPW Systolic Thickness MM 1.6 cm Aortic Annulus Diameter 3.2 cm LA Ao Ratio MM 1.1 MV E Point Septal Separation 1.3 cm DOPPLER AV Peak Velocity 103.0 cm/s LVOT Peak Velocity 87.0 cm/s AV Area Cont Eq vti 3.1 cm squared AV Area Cont Eq pk 2.8 cm squared MV Area PHT 5.6 cm squared Mitral E to A Ratio 3.4 MV E' Velocity 55.5 cm/s Mitral E to MV E' Ratio 8.7 Mitral E to LV E' Lateral Ratio 8.5 Mitral E to LV E' Septal Ratio 8.8 TR Peak Velocity 181.0 cm/s TR Peak Gradient 13.1 mmHg TV Peak E Velocity 49.0 cm/s Right Atrial Pressure 3.0 mmHg Pulmonary Artery Systolic Pressu 16.1 mmHg PV Peak Velocity 47.0 cm/s RV Acceleration Time 0.2 s RV Ejection Time 0.3 s RV AcT/ET 0.5 FINDINGS Left Ventricle Mildly dilated left ventricular cavity size. Severely decreased left ventricular systolic function. Left ventricular ejection fraction is estimated at 20 %. Severe global left ventricular hypokinesis. Grade III diastolic dysfunction (restrictive filling pattern), severely elevated filling pressures. Right Ventricle Normal right ventricular size and systolic function, RVSP 22 mmHg. Right Atrium Normal right atrial size. Left Atrium Mildly increased left atrial size. Mitral Valve Structurally normal mitral valve. Trace mitral valve regurgitation. Aortic Valve Aortic valve not well visualized. No aortic valve stenosis. Trace to mild aortic valve regurgitation. Tricuspid Valve Structurally normal tricuspid valve. Trace tricuspid valve regurgitation. Pulmonic Valve Pulmonic valve not well visualized. Pericardium Trivial to mild pericardial effusion. Aorta Normal size aortic root and proximal ascending aorta. Normal sized inferior vena cava. CONCLUSIONS 1. Mildly dilated left ventricular cavity size. Severely decreased left ventricular systolic function. Left ventricular ejection fraction is estimated at 20 %. Severe global left ventricular hypokinesis. Grade III diastolic dysfunction (restrictive filling pattern), severely elevated filling pressures. 2. No significant valvular abnormality based on this study. 3. Trivial pericardial effusion. 4. No prior similar studies to compare. Sudha Green MD (Electronically Signed) Final Date: 07 January 2021 19:03 S
[2021-01-07 12:08] LABS: Glucose Point of Care 157 mg/dL (70-110)
[2021-01-07 12:23] LABS: Magnesium 1.9 mg/dL (1.7-2.3)
[2021-01-07] MEDS: ketorolac 30 mg/mL INJ 15 MG IVP (12:25)
[2021-01-07 14:02] LABS: Coronavirus Test Green County Not Detected
[2021-01-07 16:47] LABS: Glucose Point of Care 194 mg/dL (70-110)
[2021-01-07] MEDS: atorvastatin 40 mg Tablet 20 MG PO (17:30)
[2021-01-07 20:44] LABS: Glucose Point of Care 143 mg/dL (70-110)
[2021-01-08] VITALS (9 sets, daily range): BP systolic 94–112; BP diastolic 43–70; PULSE 73–171; RESP 16–18; TEMP 36.6–37.4; O2SAT 90–97
[2021-01-08] MEDS: levofloxacin-dextrose 5 % 750 MG/150 ML PREMIX 100 MG IV (06:11)
[2021-01-08 06:31] LABS: Basophils % 0.1 %; Hematocrit 38.1 % (42.0-52.0); Hemoglobin 11.9 g/dL (11.7-16.6); Lymphocytes # 0.4 10^3/uL (0.8-4.8); Lymphocytes % 3.1 %; Mean Corpuscular HGB Conc 31.2 g/dL (30.0-36.0); Mean Corpuscular Hemoglobin 29.9 pg (28.0-34.0); Mean Corpuscular Volume 95.7 fL (80-94); Mean Platelet Volume 10.3 fL (7.4-10.4); Monocytes # 1.4 10^3/uL (0.2-0.9); Neutrophils # 11.79 10^3/uL (1.8-7.7); Neutrophils % 86.2 %; Nucleated Red Blood Cells % 0 %; Platelet Count 218 10^3/cmm (130-400); Red Blood Count 3.98 10^6/uL (4.1-5.3); Red Cell Distribution Width 17.2 % (12.1-15.1); White Blood Count 13.7 10^3/uL (4.0-10.0)
[2021-01-08 06:37] LABS: Glucose Point of Care 146 mg/dL (70-110)
[2021-01-08 06:48] LABS: Alanine Aminotransferase 11 U/L (0-41); Albumin Level 3.4 g/dL (3.5-5.2); Alkaline Phosphatase 89 IU/L (40-130); Blood Urea Nitrogen 25 mg/dL (8-23); Carbon Dioxide 24 mmol/L (22-29); Chloride 100 mmol/L (98-107); Creatinine Clr Calc Pharmacy 58.8258; Globulin 3.5 g/dL (1.3-4.6); Glucose 113 mg/dL (65-115); Osmolality Calculated 283 mOsm/kg (285-295); Sodium 134 mmol/L (136-145); Total Bilirubin 0.6 mg/dL (0.15-1.2); Total Protein 6.9 g/dL (6.6-8.7)
[2021-01-08 07:23] LABS: Anion Gap 15.7 (5-19); Aspartate Amino Transferase 16 U/L (0-40); Potassium 5.7 mmol/L (3.5-5.1)
[2021-01-08] MEDS: finasteride 5 mg Tablet PO (08:02)
[2021-01-08] MEDS: heparin 5,000 unit/mL INJ 1 mL 5000 UNIT SUBCUT ×2 (08:02→21:34)
[2021-01-08] MEDS: clopidogrel 75 mg Tablet PO (08:03)
[2021-01-08] MEDS: dilTIAZem ER (24HR) 120 mg Capsule PO (08:03)
[2021-01-08] MEDS: pantoprazole DR 40 mg Tablet PO ×2 (08:03→17:25)
[2021-01-08 10:58] LABS: Glucose Point of Care 181 mg/dL (70-110)
[2021-01-08 16:54] LABS: Glucose Point of Care 123 mg/dL (70-110)
[2021-01-08] MEDS: atorvastatin 40 mg Tablet 20 MG PO (17:25)
--- NOTE | 2021-01-08 17:42 | USR_ITS ---
PROCEDURE INFORMATION: Exam: US Duplex Left Upper Extremity Veins, Limited Exam date and time: 01/08/2021 6:50 AM Age: 85 years old Clinical indication: Edema, localized; Upper extremity, left TECHNIQUE: Imaging protocol: Real-time Duplex ultrasound of the Left Upper Extremity with 2-D logan scale, color Doppler flow and spectral waveform analysis with image documentation. Limited exam focused on the left upper extremity veins. COMPARISON: No relevant prior studies available. FINDINGS: Left deep veins: Unremarkable. Axillary and brachial veins are patent throughout without thrombus. Normal Doppler waveforms. Normal compressibility and/or augmentation response. Visualized internal jugular and subclavian veins are patent. Left superficial veins: Unremarkable. Visualized cephalic and basilic veins are patent without thrombus. Soft tissues: Superficial echogenicity changes suggesting soft tissue edema. US/[place] [id number] IMPRESSION: No evidence of deep vein thrombosis.
--- NOTE | 2021-01-08 18:08 | PM.PN ---
Subjective Subjective: Interval history: Patient was seen and examined this morning.Currently deny any chest pain, sob, cough. His other Vitals and labs have been reviewed. Vitals/I&O/Wt Last Vital Signs Temp 99.3 F 01/08/21 15:34 Pulse 87 01/08/21 15:34 Resp 18 01/08/21 15:34 BP 112/70 01/08/21 15:34 Pulse Ox 91 01/08/21 15:34 01/08/21 01/08/21 01/08/21 06:59 14:59 22:59 Intake Total 0 / 1380 1110 / 1110 Balance 0 / 1380 1110 / 1110 Weight last 48 hrs Weight 68.039 kg Physical Exam Const: COMMON NORMALS: patient oriented x3 HENMT: COMMON NORMALS: normocephalic and atraumatic HEAD & SCALP: normocephalic and atraumatic Eye: GENERAL EYE: appearance normal, both eyes and all related structures Chest: CHEST: Yes Symmetrical chest wall rise Resp: COMMON NORMALS: clear to auscultation bilaterally AUSCULTATION: clear to auscultation bilaterally Cardio: COMMON NORMALS: regular rate, regular rhythm, S1 normal heart sound present, S2 normal heart sound present, No gallops present (Cardio), No murmurs present (Cardio), No rub (Cardio) and Peripheral pulses 2+ throughout RATE: regular rate RHYTHM: regular rhythm HEART SOUNDS: S1 normal heart sound present and S2 normal heart sound present PERIPHERAL PULSES: Peripheral pulses 2+ throughout GI: COMMON NORMALS: Normal to inspection, nondistended, normoactive bowel sounds present, Soft to palpation, non-tender, No hepatosplenomegaly present and no masses AUSCULTATION: Yes normoactive bowel sounds PALPATION: Yes Soft to palpation and Yes No hepatosplenomegaly present RECTAL EXAM: Yes deferred Extremity: NARRATIVE EXTREMITY EXAM: Lt upper extremity swelling. Neuro: COMMON NORMALS: patient oriented x3 Data : 01/08/21 05:48 01/08/21 05:48 Micro: Microbiology 01/07/21 08:17 Blood Culture - Preliminary Blood NEGATIVE TO DATE 01/07/21 08:18 Blood Culture - Preliminary Blood NEGATIVE TO DATE A&P Assessment and plan (1) Chest pain: CTA has been performed excluding pulmonary embolism. Likely has pneumonia secondary to pleuritic pain, oxygen requirement. Must also consider pericarditis considering positional changes. Consider giving a dose of ketorolac for pain as narcotics were not effective in the emergency department When I reevaluated the patient after he came to the floor he reported he did not have any discomfort when still, but still had some discomfort when he took a deep breath. I clarified the changes in his discomfort with position and he reported that when he was having his severe pain when he sat up it was somewhat better but did not go completely away. 2D Echo : Mildly dilated left ventricular cavity size. Severely decreased left ventricular systolic function. Left ventricular ejection fraction is estimated at 20 %. Severe global left ventricular hypokinesis. Grade III diastolic dysfunction. (restrictive filling pattern), severely elevated filling pressures. No significant valvular abnormality Status: Acute (2) Pneumonia: Blood culture drawn in the ER Sputum culture if can be obtained Levaquin IV Status: Acute (3) Heart failure: HFrEF ( Currently compensated ) .No prior 2D Echo for now.If it is new HFrEF then patient will need ischemia work up. Will Start on low dose lisinopril. I/O Charting Daily Weight. Status: Acute (4) Acute and chronic respiratory failure with hypoxia: Oxygen as needed DuoNeb as needed See notations regarding treatment of pneumonia Status: Acute (5) Elevated troponin: Type II elevation Check echocardiogram Status: Acute (6) Left upper extremity swelling: lt upper extremity doppler : DVT Ruled out. Conservative management for now.Keep the arm elevated. Status: Acute (7) Hyperkalemia: Current Serum K is 5.7. Monitor BMP Status: Acute (8) Elevated d-dimer: Status: Acute (9) Leukocytosis: Status: Acute (10) Anemia: Normocytic Anemia Anemia Panel Serum B12 and Folic Acid Status: Acute Additional A&P Information History of esophageal cancer. Currently in remission. Last chemotherapy greater than 3 months ago Atrial flutter. Patient on diltiazem for rate control Coronary artery disease. Continue Plavix and statin Multiple other medical problems as outlined in past medical history Full code Heparin for DVT prophylaxis Attestations Medical Necessity Statement*: Patient needs to be in hospital for the management of PNA/Chest pain Coding Level of Care Code Acute Electric Wel[employer] Hel[employer] for [facility] Diagnoses Chest pain R07.9 Pneumonia J18.9 Heart failure I50.9 Acute and chronic respiratory failure with hypoxia J96.21 Elevated troponin R77.8 Left upper extremity swelling M79.89 Hyperkalemia E87.5 Elevated d-dimer R79.89 Leukocytosis D72.829 Anemia D64.9
[2021-01-08] MEDS: docusate sodium 100 mg Capsule PO (18:13)
[2021-01-08 20:50] LABS: Glucose Point of Care 150 mg/dL (70-110)
[2021-01-09] VITALS (8 sets, daily range): BP systolic 87–113; BP diastolic 46–68; PULSE 70–74; RESP 16–20; TEMP 36.7–36.9; O2SAT 86–97
[2021-01-09] MEDS: levofloxacin-dextrose 5 % 750 MG/150 ML PREMIX 100 MG IV (06:02)
[2021-01-09 06:28] LABS: Glucose Point of Care 118 mg/dL (70-110)
[2021-01-09 07:15] LABS: Basophils % 0.1 %; Eosinophils % 0.1 %; Hematocrit 34.6 % (42.0-52.0); Hemoglobin 10.5 g/dL (11.7-16.6); Lymphocytes # 0.4 10^3/uL (0.8-4.8); Lymphocytes % 4.6 %; Mean Corpuscular HGB Conc 30.3 g/dL (30.0-36.0); Mean Corpuscular Hemoglobin 29.6 pg (28.0-34.0); Mean Corpuscular Volume 97.5 fL (80-94); Monocytes # 0.9 10^3/uL (0.2-0.9); Monocytes % 10.4 %; Neutrophils # 7.54 10^3/uL (1.8-7.7); Neutrophils % 84.2 %; Nucleated Red Blood Cells % 0 %; Platelet Count 193 10^3/cmm (130-400); Red Blood Count 3.55 10^6/uL (4.1-5.3); Red Cell Distribution Width 17.2 % (12.1-15.1)
[2021-01-09 07:41] LABS: Anion Gap 11.5 (5-19); Blood Urea Nitrogen 18 mg/dL (8-23); Calcium 8.4 mg/dL (8.5-10.5); Carbon Dioxide 26 mmol/L (22-29); Chloride 102 mmol/L (98-107); Ferritin 99 ng/mL (30-400); Glucose 123 mg/dL (65-115); Iron 23 ug/dL (59-158); NT Pro B Type Natriuretic Pept 1951 pg/mL (0-450); Osmolality Calculated 283 mOsm/kg (285-295); Percent Saturation 9.8 % (20-50); Potassium 4.5 mmol/L (3.5-5.1); Sodium 135 mmol/L (136-145); Total Iron Binding Capacity 233 mcg/dl; Transferrin 195 mg/dL (200-360); Unsaturated Iron Binding 210 ug/dL (112-347)
[2021-01-09] MEDS: finasteride 5 mg Tablet PO (08:14)
[2021-01-09] MEDS: pantoprazole DR 40 mg Tablet PO (08:14)
[2021-01-09] MEDS: dilTIAZem ER (24HR) 120 mg Capsule PO (08:15)
[2021-01-09] MEDS: clopidogrel 75 mg Tablet PO (08:15)
[2021-01-09] MEDS: heparin 5,000 unit/mL INJ 1 mL 5000 UNIT SUBCUT (08:15)
--- NOTE | 2021-01-09 10:38 | PC.NURSE ---
Patient's wallet give to his son Gonzalo at this time.
--- NOTE | 2021-01-09 10:46 | PC.CHAP ---
Pastoral Care Encounter/Spiritual Assessment Type of Contact [] Declined emergency management consultant visit [] Patient/Family/Request visit [] Outpatient visit [] Follow-up visit [] Physician referral [] Code/Alert [x] Routine visit [] Staff referral [] Actively dying [] Patient sleeping [] Family support [] [] Out of room [] Palliative care [] [] Receiving care in room [] Pre-surgical visit [] Trauma [] Long length of stay [] ICU visit [] Other: Relational/Emotional Strength [x] Patient feels connected with others/family/visitors/staff [] Distress [] Loneliness/isolation [] Abandonment Spirituality of Patient [] Person of Pallavi [] Attends Restoration of their Pallavi [] Believes in Prayer [] Reads Bible or Hinduism materials [x] There are Spiritual issues to be addressed Configuration Technician Interventions [] Prayer [x] Active listening [x] Non-anxious presence [x] Spiritual/emotional support [] Crisis/trauma care [] Spiritual counseling [] Bereavement support [] Provided bereavement packet [] Provided Bible/devotional materials [] Provided toy/stuffed animal, coloring book to patient or family member [] Provided Communion [] Anointing/[place] [] Salvation [x] Completed spiritual assessment [] Other: Impact on Illness or Injury [] Angry [] Fearful [] Anxious [] Often cries [] Exhaustion [] Unable to work [] Unable to attend mandaeism [] Unable to walk/stand [] Unable to read [] Unable to drive [] Unable to eat/drink [] Unable to sleep [] Unable to be with family [] Patient intubated [] Other: Summary Pt's son was in room visiting while emergency management consultant met with room mate but left before emergency management consultant was able to visit with father. Pt expressed he expects to be discharged today. Time spent with patient 5m
[2021-01-09 11:00] LABS: Glucose Point of Care 199 mg/dL (70-110)
--- NOTE | 2021-01-09 11:20 | PM.DCS ---
Discharge Providers Date of Admission: 01/07/21 08:49 Date of Discharge: January 09, 2021 Attending Provider at Admission: Jatinder Arriaga MD Attending Provider at Discharge: Jose Alfredo Daly MD Diagnoses at Discharge Discharge Diagnosis (1) Chest pain: Status: Resolved (2) Pneumonia: Status: Acute (3) Heart failure: Status: Chronic Permanent problem details: Currently compensated (4) Acute and chronic respiratory failure with hypoxia: Status: Acute (5) Elevated troponin: Status: Acute (6) Left upper extremity swelling: Status: Acute Permanent problem details: No DVT (7) Hyperkalemia: Status: Resolved (8) Elevated d-dimer: Status: Acute Permanent problem details: PE ruled out (9) Leukocytosis: Status: Resolved (10) Anemia: Status: Chronic Reason for Visit Reason for Visit: chest pain Hospital Course Hospital Course 85 year old male with past medical history of atrial flutter, coronary artery disease , status post OR, HFrEF, Esophageal cancer, dyslipidemia, who presented to the hospital with complaints of chest discomfort.On admission he reported the discomfort is sharp, both sides of his chest and into his back.It has been severe.He states it increases when he takes a deep breath and increases when he lays down.He was admitted for the management and work-up of chest pain. CTA has been performed excluding pulmonary embolism. Elevated troponins without significant delta, no acute EKG changes. Given his pleuritic component, and oxygen requirement admitted for the management of pneumonia, he was kept on levofloxacin, and was discharged on levofloxacin, blood cultures were negative, he responded pretty well to IV antibiotic, at the time of discharge, he was not complaining of any shortness of breath, pleuritic chest pain, fever, cough,he failed to qualify for supplemental home oxygen. For his heart failure with ejection fraction, he was clinically compensated, 2D echo done during this hospital stay Mildly dilated left ventricular cavity size. Severely decreased left ventricular systolic function. Left ventricular ejection fraction is estimated at 20 %. Severe global left ventricular hypokinesis. Grade III diastolic dysfunction. (restrictive filling pattern), severely elevated filling pressures. No significant valvular abnormality. He was discharged on Lasix 20 mg daily, as well as was started on lisinopril 2.5 mg p.o. daily, he was continued on his other home medication. He had also developed left upper extremity swelling during this hospital stay: Doppler upper extremity: Failed to show any DVT: He was managed conservatively, with elevation of the hand and appropriate support, swelling of the left upper extremity had markedly improved. He responded well to the above medical management and was discharged in stable condition. We will continue to follow his cardiology as an outpatient, as well as his primary care physician. Physical Exam Const: COMMON NORMALS: patient oriented x3 HENMT: COMMON NORMALS: normocephalic and atraumatic HEAD & SCALP: normocephalic and atraumatic Eye: GENERAL EYE: appearance normal, both eyes and all related structures Chest: CHEST: Yes Symmetrical chest wall rise Resp: COMMON NORMALS: clear to auscultation bilaterally AUSCULTATION: clear to auscultation bilaterally Cardio: COMMON NORMALS: regular rate, regular rhythm, S1 normal heart sound present, S2 normal heart sound present, No gallops present (Cardio), No murmurs present (Cardio), No rub (Cardio) and Peripheral pulses 2+ throughout RATE: regular rate RHYTHM: regular rhythm HEART SOUNDS: S1 normal heart sound present and S2 normal heart sound present PERIPHERAL PULSES: Peripheral pulses 2+ throughout GI: COMMON NORMALS: Normal to inspection, nondistended, normoactive bowel sounds present, Soft to palpation, non-tender, No hepatosplenomegaly present and no masses AUSCULTATION: Yes normoactive bowel sounds PALPATION: Yes Soft to palpation and Yes No hepatosplenomegaly present RECTAL EXAM: Yes deferred Extremity: NARRATIVE EXTREMITY EXAM: Lt upper extremity swelling, improving Neuro: COMMON NORMALS: patient oriented x3 Discharge Data Data Completed and Pending: Completed Studies During Hospitalization Category Date Time Status CT angio chest w abd pel w con Urge nt Cat Scan 01/07/21 04:38 Completed XR chest 1V soumya ble [id number] Stat Exams 01/07/21 03:51 Completed CV echo complete* [id number] Routine Ultrasound 01/07/21 11:29 [place] [id number] Routin e Ultrasound 01/08/21 17:42 Completed Pending at discharge Category Date Time Status Basic Metabolic P chandler AM LABS Lab 01/10/21 04:00 Ordered Blood Culture Sta t Lab 01/07/21 08:17 Results Complete Blood Co unt w/Auto AM LABS Lab 01/10/21 04:00 Ordered Sputum Culture an d Gram Stain Routi ne Lab 01/07/21 11:35 Uncollected Labs from last 24 hours 01/09/21 01/09/21 01/09/21 10:53 07:06 07:06 WBC 9.0 RBC 3.55 L Hgb 10.5 L Hct 34.6 L MCV 97.5 H MCH 29.6 MCHC 30.3 RDW 17.2 H Plt Count 193 MPV 10.0 Neut % (Auto) 84.2 Lymph % (Auto) 4.6 Taylor % (Auto) 10.4 Eos % (Auto) 0.1 Baso % (Auto) 0.1 Neut # (Auto) 7.54 Lymph # (Auto) 0.4 L Taylor # (Auto) 0.9 Eos # (Auto) 0.0 Baso # (Auto) 0.0 Nucleated RBC % (a uto) 0 Nucleated RBCs # 0.0 Sodium 135 L Potassium 4.5 Chloride 102 Carbon Dioxide 26 Anion Gap 11.5 BUN 18 Creatinine 0.7 GFR Calculation Not Reportable Glucose 123 H POC Glucose 199 H Calculated Osmolal ity 283 L Calcium 8.4 L Magnesium 2.0 Iron 23 L TIBC 233 % Saturation 9.8 L Unsat Iron Binding 210 Transferrin 195 L Ferritin 99 NT-Pro-B Natriuret Pep 1951 H 01/09/21 01/08/21 01/08/21 06:20 20:43 16:50 WBC RBC Hgb Hct MCV MCH MCHC RDW Plt Count MPV Neut % (Auto) Lymph % (Auto) Taylor % (Auto) Eos % (Auto) Baso % (Auto) Neut # (Auto) Lymph # (Auto) Taylor # (Auto) Eos # (Auto) Baso # (Auto) Nucleated RBC % (a uto) Nucleated RBCs # Sodium Potassium Chloride Carbon Dioxide Anion Gap BUN Creatinine GFR Calculation Glucose POC Glucose 118 H 150 H 123 H Calculated Osmolal ity Calcium Magnesium Iron TIBC % Saturation Unsat Iron Binding Transferrin Ferritin NT-Pro-B Natriuret Pep Vitals: Last Vital Signs Temp 98.2 F 01/09/21 07:34 Pulse 74 01/09/21 07:41 Resp 16 01/09/21 07:41 BP 99/65 01/09/21 07:34 Pulse Ox 91 01/09/21 11:15 Discharge Plan Discharge Patient Disposition: Home Condition: Stable Prescriptions: New lisinopril 2.5 mg tablet 2.5 mg PO DAILY Qty: 30 RF: 0 Lasix 20 mg tablet 20 mg PO DAILY Qty: 30 RF: 0 levofloxacin 750 mg tablet 750 mg PO DAILY 4 Days Qty: 4 RF: 0 Continued Plavix 75 mg Tablet 75 mg PO DAILY RF: 0 simvastatin 80 mg Tablet 40 mg PO QPM RF: 0 diltiazem HCl 120 mg Tablet 120 mg PO DAILY RF: 0 hydrocodone-acetaminophen 7.5-325 mg Tablet 1 tab PO Q6H PRN (Reason: Pain) RF: 0 pantoprazole 40 mg Tablet,Delayed Release (Dr/Ec) 40 mg PO BID RF: 0 metformin 1,000 mg Tablet 500 mg PO DAILY RF: 0 finasteride 5 mg Tablet 5 mg PO DAILY RF: 0 Discharge Orders: Discharge Order (Routine); Ordered 01/09/21 Ordered By: Jose Alfredo Daly Referrals: [facility] [Occupational Therapist] - 4-7 days (Call the office first thing Sunday to schedule an appointment for 4 to 7 days.) Discharge Diet: Diabetic Discharge Activity: Resume usual activity Patient Instructions: Lisinopril (By mouth), Furosemide (By mouth), Levofloxacin (By mouth), Opioid Safety Discharge Attestations Time Spent in Discharge Care*: less than 30 min Specific Discharge Activities: educating patient, educating and/or supporting family/caregiver, discussing with case packer and sealer/social workers/dc planners, documenting/other paperwork and evaluating patient/reviewing data Status at Discharge: Cognitive status at discharge: cognitively intact, Behavioral status at discharge: cooperative, Functional status at discharge: independent ambulation Overall status at discharge: patient is back to baseline Quality Metrics Clinical Quality Measures During this hospital stay, did patient experience: None Coding Level of Care Code Acute [facility] DC note Diagnoses Chest pain R07.9 Pneumonia J18.9 Heart failure I50.9 Acute and chronic respiratory failure with hypoxia J96.21 Elevated troponin R77.8 Left upper extremity swelling M79.89 Hyperkalemia E87.5 Elevated d-dimer R79.89 Leukocytosis D72.829 Anemia D64.9
--- NOTE | 2021-01-09 11:51 | PC.NURSE ---
Patient's Right Chest Port flushed per policy and then removed. Patient tolerated well. No bleeding noted.
--- NOTE | 2021-01-09 12:16 | PC.NURSE ---
Reviewed discharge with patient at this time. Patient's son was given his wallet earlier at the patient's request. Patient is alert and orientated x3. Respirations evena nd non-labored on room air. Patient verbalized understanding of discharge instructions [facility] and getting his written [facility] filled. Patient wheel chaired to private car. Patient's son Gonzalo also verbalized understanding of filling his fathers written prescriptions.
--- NOTE | 2021-01-12 17:13 | PC.RESP ---
Pulmonary Rehab information sent to patient.
== END 2021-01-09 12:00 | disposition home or self-care (01) ==
LOC: ER 08:08 → MEDSURG 09:35
PROVIDERS: Emergency Medicine; Admitting Provider Internal Medicine; Emergency Provider Family Medicine; Visit Provider Internal Medicine
DX: R07.89 Other chest pain (principal); J18.9 Pneumonia, unspecified organism; I50.9 Heart failure, unspecified; J96.21 Acute and chronic respiratory failure with hypoxia; R77.8 Other specified abnormalities of plasma proteins; M79.89 Other specified soft tissue disorders; E87.5 Hyperkalemia; R79.89 Other specified abnormal findings of blood chemistry; D72.89 Other specified disorders of white blood cells; D64.9 Anemia, unspecified; I25.2 Old myocardial infarction; I25.10 Atherosclerotic heart disease of native coronary artery without angina pectoris; Z85.01 Personal history of malignant neoplasm of esophagus; R60.1 Generalized edema; E11.9 Type 2 diabetes mellitus without complications; E78.5 Hyperlipidemia, unspecified; K21.9 Gastro-esophageal reflux disease without esophagitis; Z95.0 Presence of cardiac pacemaker; Z87.891 Personal history of nicotine dependence
CPT/HCPCS: 36415; 36416; 36591; 71045; 71275; 74177; 80048; 80053; 82728; 82962; 83540; 83550; 83690; 83735; 83880; 84443; 84466; 84484; 85025; 85378; 87040; 87426; 87635; 93005; 93306; 93971; 96365; 96367; 96372; 96375; 96376; 99291; G0378; J1170; J1644; J1815; J1885; J1956; J2405; Q9967

== ENCOUNTER 2021-01-13 09:38 | Inpatient (IN) | payer OTHER, MEDICARE, SELFPAY ==
[2021-01-13] VITALS (39 sets, daily range): BP systolic 83–145; BP diastolic 40–94; PULSE 85–122; RESP 6–24; TEMP 36.3–37.1; O2SAT 88–99; BMI 24.2
--- NOTE | 2021-01-13 10:09 | CT_ITS ---
WS: [id number] CT LUMBAR SPINE TECHNIQUE: Noncontrast CT of the lumbar spine with coronal and sagittal reformatted images. CLINICAL INFORMATION: pain with parathesia/paralysis L leg COMPARISON: Prior CT examinations March 2018 and January 2018 DLP: 2318.[address] scans at [facility] use at least one of these dose optimization techniques: automat ed exposure control; mA and/or kV adjustment per patient size (includes targeted exams where dose is matched to clinical indication); or iterative reconstruction. FINDINGS: Mild lumbar curve. No acute compression. No high-grade central canal stenosis. Hypertrophic changes l ower thoracic and lumbar spine. Adrenal glands are normal. Aortic calcification. Disc bulging worse L 4-L5 and L5-S1. No acute fractures. L1-L2: Mild disc bulging with vacuum disc phenomenon. Moderate facet arthropathy. Slight narrowing of the subarticular recess bilaterally with mild bilateral foraminal narrowing. Spinal canal is patent. L2-L3: Mild annular bulging. Spinal canal is patent. Mild right foraminal narrowing. Left foramen is patent. Moderate to advanced facet arthropathy. L3-L4: Mild annular bulging. Spinal canal is patent. Mild bilateral foraminal narrowing. Moderate fac et arthropathy. L4-L5: Mild annular bulging with moderate central canal stenosis. Impingement traversing L5 nerve filipe ts bilaterally. Advanced facet arthropathy with ligamentum flavum hypertrophy. Mild right greater danette n left foraminal narrowing. L5-S1: Mild annular bulging with a tiny shallow central protrusion. Impingement traversing S1 nerve r oots bilaterally. Mild central canal stenosis. Advanced facet arthropathy. Ligament flavum hypertroph y. Moderate bilateral foraminal narrowing right greater than left with contact of the exiting L5 nerv e roots. Visualized pelvic bony structures: Normal. Paravertebral soft tissues: Normal. CT/CT lumbar spine wo con* [id number] IMPRESSION: 1. Moderate spondylitic changes lumbar spine. No acute fractures. 2. 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 3. Mild central canal stenosis L5-S1 with impingement on the traversing S1 ner ve roots. 4. Multilevel foraminal narrowing [id number] worse at bilateral L4-5 wor se in the left and bilateral L5-S1 worse in the right. 5. Advanced facet arthropathy L4-L5 and L5-S1. 6. Disc bulging L4-L5 and L5-S1 has progressed since 2018.
[2021-01-13] MEDS: ondansetron 2 mg/ML SDV 2 mL 4 MG IVP (10:10)
[2021-01-13] MEDS: morphine 4 mg/mL SDV 1 mL IVP ×2 (10:10→11:49)
--- NOTE | 2021-01-13 10:12 | ED_ITS ---
HPI - Extremity Problem General: Chief complaint: Extremity Problem,Nontraumatic Stated complaint: LEFT LEG PAIN Time Seen by Provider: 01/13/21 09:46 History of Present Illness: HPI Narrative: 85-year-old male states he is walking at [facility] and began to have pain in his left leg radiating from the groin upper thigh area down into his toes he has difficult time trying to make it to a motorized cart was able to eventually get there. On arrival here he has severe pain with loss of sensation to the skin and near complete paralysis. He is not previously been having any intermittent claudication he has no known history of lumbar nerve impingement no previous surgery. He does have a history of esophageal cancer for which he is getting radiation and chemotherapy there is not any known distant metastasis on CTs and PET scan these had at this point although there was some localized lymphadenopathy. MD Complaint: extremity pain Onset (ago): minute(s) Pain Consistency: constant Location: left and lower extremity Quality: sharp Radiation: none Relieving factors: rest Exacerbating factors: weight bearing and walking Associated symptoms: Deny arthralgias, chest pain, fever(s), myalgias, rash or short of breath Review of Systems Const: Denies: fever(s) ENMT: Denies: throat pain, ear or mastoid pain, nasal discharge or nasal congestion Card: Denies: chest pain Resp: Denies: dyspnea, productive cough or non-productive cough GI: Denies: abdominal pain, nausea, vomiting, hematemesis, coffee ground emesis, diarrhea, constipation, bloating, hematochezia or melena : Denies: flank pain, dysuria, urinary frequency or urinary urgency Skin/Breast: Denies: rash PFSH ED PFSH: Medical History (Updated 01/13/21 @ 14:51 by Scott Cisneros DO) BPH (benign prostatic hyperplasia) CAD (coronary artery disease) Diabetes mellitus Diverticulosis Esophageal cancer Hypertension Surgical History H/O bilateral inguinal hernia repair H/O exploratory laparotomy I swallowed a safety pin when I was a kid and they had to open me up to get it out History of foot surgery R ankle fracture History of incisional hernia repair x 2 PEG (percutaneous endoscopic gastrostomy) status Port-A-Cath in place Right subclavian S/P appendectomy Status post coronary artery stent placement x 1 2006 Status post placement of cardiac pacemaker Family History Other Cancer Denies family history of Anesthesia complication Bleeding disorder Social History Quit status (tobacco): has quit using tobacco Former quit date comment: 1979 Alcohol intake: former Former alcohol use details: Quit in September. Formerly heavy drinker Lives independently: Yes Household members: spouse Marital status: Physical Exam Const: COMMON NORMALS: no acute distress GENERAL APPEARANCE: cooperative and comfortable ORIENTATION/CONSCIOUSNESS: Yes awake, Yes oriented to person, Yes oriented to place and Yes oriented to time HENMT: COMMON NORMALS: normocephalic, atraumatic and hearing grossly normal bilaterally HEAD & SCALP: normocephalic and atraumatic Neck/C-Spine: COMMON NORMALS: no JVD Resp: COMMON NORMALS: normal respiratory effort, No retractions, No use of accessory muscles and clear to auscultation bilaterally AUSCULTATION: clear to auscultation bilaterally Cardio: COMMON NORMALS: no JVD, regular rate, regular rhythm and No murmurs present (Cardio) RATE: regular rate RHYTHM: regular rhythm GI: COMMON NORMALS: Soft to palpation and No hepatosplenomegaly present AUSCULTATION: Yes normoactive bowel sounds PALPATION: Yes Soft to palpation, No Tenderness to palpation present (GI), No Guarding due to palpation present (GI) and Yes No hepatosplenomegaly present Extremity: COMMON NORMALS: normal to inspection, capillary refill normal, no clubbing, cyanosis or edema, no calf tenderness and no pedal edema NARRATIVE EXTREMITY EXAM: Straight leg raising is negative. No sensation in the lower extremity from the toes to the level of the groin. Wench tested with sharp touch left or right patient was able to sense pressure on the skin but not able to sense of sharp touch. Proximal to the level of the groin he was able to differentiate sharp touch and pressure left and right. He has flaccid below the level of the groin he cannot flex or extend at the hip. He cannot dorsi or plantarflex. Deep tendon reflexes were not able to be elicited at the patellar tendon. Neuro: SENSORIUM/ORIENTATION: Yes oriented to person, Yes oriented to place and Yes oriented to time Skin: COMMON NORMALS: no rashes or lesions noted GENERAL SKIN EXAM: no rashes or lesions noted Course Vital Signs: Vital signs: Vital Signs Temperature 98.1 F 01/13/21 09:50 Pulse Rate 99 01/13/21 14:00 Respiratory Rate 22 H 01/13/21 14:00 Blood Pressure 137/73 01/13/21 14:00 Pulse Oximetry 98 01/13/21 14:00 MDM - Extremity (Nontraumatic) MDM Narrative: Medical decision making narrative: Initial evaluation I could feel a femoral pulse and had felt a distal DP pulse. The only finding of sensation was the patient had a sense of proprioception but nothing else which led me to believe it was more neurologic in nature given his history of eso phageal cancer was concerned about a neurologic lesion from metastasis CT did not show anything reevaluated the patient his foot was then found to be cool to the touch more so than previously arterial Doppler was done showed a femoral artery occlusion. Patient was started on heparin discussed with Dr. Keller. At the same time finding of arterial occlusion was found in another patient in the ER was triaged to the Leather Belt Maker as a higher priority. Dr. Keller will take this patient to the Leather Belt Maker as soon a the Leather Belt Maker is available. Reviewed the findings with the patient and her his daughter. Lab Data: Labs: Lab Results 01/13/21 01/13/21 Range/Units 10:27 10:27 WBC 7.7 (4.0-10.0) 10^3/ uL RBC 4.23 (4.1-5.3) 10^6/u L Hgb 12.4 (11.7-16.6) g/dL Hct 39.6 L (42.0-52.0) % MCV 93.6 (80-94) fL MCH 29.3 (28.0-34.0) pg MCHC 31.3 (30.0-36.0) g/dL RDW 17.0 H (12.1-15.1) % Plt Count 297 (130-400) 10^3/c mm MPV 9.5 (7.4-10.4) fL Neut % (Auto) 80.5 % Lymph % (Auto) 6.5 % [place] % (Auto) 11.2 % Eos % (Auto) 1.0 % Baso % (Auto) 0.4 % Neut # (Auto) 6.18 (1.8-7.7) 10^3/u L Lymph # (Auto) 0.5 L (0.8-4.8) 10^3/u L [place] # (Auto) 0.9 (0.2-0.9) 10^3/u L Eos # (Auto) 0.1 (0.0-0.8) 10^3/u L Baso # (Auto) 0.0 (0.0-0.1) 10^3/u L Nucleated RBC % (a uto) 0 % Nucleated RBCs # 0.0 /100WBC Sodium 137 (136-145) mmol/L Potassium 4.1 (3.5-5.1) mmol/L Chloride 100 (98-107) mmol/L Carbon Dioxide 21 L (22-29) mmol/L Anion Gap 20.1 H (5-19) BUN 23 (8-23) mg/dL Creatinine 0.7 (0.7-1.2) mg/dL GFR Calculation Not Reportable Glucose 164 H (65-115) mg/dL Calculated Osmolal ity 291 (285-295) mOsm/k g Calcium 9.0 (8.5-10.5) mg/dL Total Bilirubin 0.6 (0.15-1.2) mg/dL AST 20 (0-40) U/L ALT 22 (0-41) U/L Alkaline Phosphata se 123 (40-130) IU/L Creatine Kinase 38 L (39-308) U/L Total Protein 7.0 (6.6-8.7) g/dL Albumin 3.8 (3.5-5.2) g/dL Globulin 3.2 (1.3-4.6) g/dL Discharge Plan Discharge Patient Disposition: Admitted As Inpatient Clinical Impression: Ischemic leg pain, Hypertension, Diabetes mellitus, Esophageal cancer Condition: Stable Coding Level of Care Code ED Litigation Assistant for Chg Fwd Exam Comprehensive
[2021-01-13 10:32] LABS: Basophils % 0.4 %; Eosinophils # 0.1 10^3/uL (0.0-0.8); Hematocrit 39.6 % (42.0-52.0); Hemoglobin 12.4 g/dL (11.7-16.6); Lymphocytes # 0.5 10^3/uL (0.8-4.8); Lymphocytes % 6.5 %; Mean Corpuscular HGB Conc 31.3 g/dL (30.0-36.0); Mean Corpuscular Hemoglobin 29.3 pg (28.0-34.0); Mean Corpuscular Volume 93.6 fL (80-94); Mean Platelet Volume 9.5 fL (7.4-10.4); Monocytes # 0.9 10^3/uL (0.2-0.9); Monocytes % 11.2 %; Neutrophils # 6.18 10^3/uL (1.8-7.7); Neutrophils % 80.5 %; Nucleated Red Blood Cells % 0 %; Platelet Count 297 10^3/cmm (130-400); Red Blood Count 4.23 10^6/uL (4.1-5.3); White Blood Count 7.7 10^3/uL (4.0-10.0)
[2021-01-13 10:52] LABS: Alanine Aminotransferase 22 U/L (0-41); Albumin Level 3.8 g/dL (3.5-5.2); Alkaline Phosphatase 123 IU/L (40-130); Anion Gap 20.1 (5-19); Aspartate Amino Transferase 20 U/L (0-40); Blood Urea Nitrogen 23 mg/dL (8-23); Carbon Dioxide 21 mmol/L (22-29); Chloride 100 mmol/L (98-107); Creatine Phosphokinase 38 U/L (39-308); Globulin 3.2 g/dL (1.3-4.6); Glucose 164 mg/dL (65-115); Osmolality Calculated 291 mOsm/kg (285-295); Potassium 4.1 mmol/L (3.5-5.1); Sodium 137 mmol/L (136-145); Total Bilirubin 0.6 mg/dL (0.15-1.2)
--- NOTE | 2021-01-13 12:33 | USCV_ITS ---
Bernard Alonzo Age: 85 Gender: M : 1935 Exam Date: 01/13/2021 12:45 Ordering Phys: Scott Cisneros DO Technologist: Pema Chase Exam Location: [facility] [place] Indication: LT FOOT AND LEG COLD Risk Factors: Unknown Previous Vascular Surgery: Unknown RIGHT LEFT BP: 148.0 / BP: / 0 FINDINGS NO FLOW IN LT LOWER EXT. FROM LT ILIAC AT BIF TO FOOT!! AO HAS FLOW AND RT IL HAS FLOW. DR. CISNEROS NOTIFIED. 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 Cisneros was informed about this finding Dr Israel Barrera MD [facility] (Electronically Signed) Final Date: 14 January 2021 09:06 S
--- NOTE | 2021-01-13 13:30 | PC.NURSE ---
Informed Dr Cisneros of Mottled left leg and cold to touch. Dr Cisneros has assessed his leg
[2021-01-13] MEDS: HYDROmorphone 1 mg/mL INJ 1 mL 0.5 MG IVP (13:51)
[2021-01-13] MEDS: heparin drip 25,000 UNIT/500 ML PREMIX 25.9 UNIT IV (13:52)
--- NOTE | 2021-01-13 14:33 | PC.NURSE ---
Resting with lights off. Family at bedside. Heparin infusing at 19 mls/hr. Mottling on left leg decreasing, warmer touch.
--- NOTE | 2021-01-13 15:05 | PC.NURSE ---
laborer heading here to take to surgery. Heparin infusing.
--- NOTE | 2021-01-13 15:07 | XACV_ITS ---
Ht: 170 cm Wt: 68 kg BSA: 1.80 m2 Any Known Allergies: No known allergies Gender: Male : 1935 Exam Type: Invasive Peripheral Vascular Procedure(s): Procedure Description: Peripheral Cath Diagnostic Procedure Procedure Description: Abdominal aortic angiography Procedure Description: Lower extremities' angiography Procedure Description: Peripheral vascular Intervention Procedure Description: PV Balloon Procedure Description: PV Stent Procedure Description: PV Thrombectomy Exam Priority: Routine Lower Extremity Interventional Findings Intervention: Right common femoral approach was adopted. 8 [place] destination sheath was placed. After somewhat difficulty I was able to cross the left common external iliac common femoral into left SFA. Penumbra CAT-8 was inserted multiple passes of thrombectomy was performed from left common iliac to all the way popliteal vessel. Huge clot burden was retrieved. Severe left mid common iliac to external iliac artery was noted to be 90% stenotic with ruptured plaque. Left profundofemoral artery was also noted to be occluded with high thrombus burden. It was treated with thrombectomy and balloon angioplasty. Flow was restored with possible very distal occlusion which was thought to be later cleared with anticoagulation.Left common iliac, external iliac vessel was then treated with balloon angioplasty using Adalberto [id number] a [id number] millimeter balloon. 7.0 x 59 mm Omnilink stent was used to treat the lesion.Excellent angiographic result with excellent flow was noted from the left common iliac artery into left common femoral, left SFA, left popliteal artery, left tibioperoneal trunk with left posterior tibial artery, left peroneal artery. Proximal left anterior tibial artery was chronically occluded with distal reconstruction. Good two-vessel runoff was noted.. Conclusions Reason for peripheral angiogram and percutaneous intervention: Limb threatening ischemia with acute leg.84-year-old male past medical history significant for history of smoking hypertension hyperlipidemia [facility] of claudication all of a sudden felt intense pain in the left leg with severe cramps within minutes he was not able to move his leg. He was taken immediately to the emergency room. He was noted to have cold pale leg with doubt any flow through the iliacs femoral and below. I was called to assess the patient. I saw the patient in the emergency room. He was taken immediately to the Fur Machine Operator after starting on heparin. He was noted to have acute occlusion of left proximal common iliac and no flow was observed below it.Abdominal aortogram: No aneurysm noted in the abdominal aorta, luminal irregularity was noted. Right and left renal arteries were normal. Left proximal common iliac arteries acutely occluded in the proximal segment. Right common, external and internal iliac artery are patent. Right common femoral is patent, right SFA and profunda is patent. Right popliteal artery is patent right tibioperoneal trunk is patent with good three-vessel runoff.. null was treated with Balloon. null was treated with Balloon and Stent. Recommendations Continue current medical management and risk factor modification. Follow up with PCP as directed. 1-Return to inpatient for close monitoring and routine cath care2-Risk factor modification for secondary prevention3-Statin and aspirin 81 mg life--long, if tolerated4-Patient was pre-loaded with 300 mg of Plavix, continue Plavix 75mg p.o. daily for at least three months.5-Continue optimal medical management6-Follow up with Dr. Hudson in four weeks and your primary care in 10 days. Continue medical management and risk factor modification. Access Site Site: Right Femoral artery Sheath Size: 6 Fr Hemost... Method: Suture Hemost... Success: Successful Procedure Details Findings Pre-Procedure Time Out. Identified patient by full name and date of as verbalized by the patient/guarantor. Does the consent match the physician's order: N/A Emergent; Informed Consent not obtained due to time critical life threat. Accurate & Complete Informed Consent: N/A Emergent; Informed Consent not obtained due to time critical life threat. Inpatient/Outpatient History & Physical on Chart: N/A Emergent; Informed Consent not obtained due to time critical life threat. If H&P is completed, is and addenduem needed: N/A Emergent; Informed Consent not obtained due to time critical life threat; If yes, is the addendum complete: N/A Emergent; Informed Consent not obtained due to time critical life threat. Visualize and Verify Site with Patient/Guarantor: N/A. Relevant Radiology Images available: N/A Emergent; Informed Consent not obtained due to time critical life threat. Pre-op teaching completed and patient verbalized understanding. The risks, benefits, and alternatives of sedation and/or procedure were discussed by physician. The patient agrees to continue. Procedure started. Correct patient, site and procedure confirmed by cath team. Current diagnosis: Femoral Artery Occlusion. At baseline patient is unable to wiggle toes. Left foot is cold to touch, no femoral, Tibial or Dorsalis Pedis pulses noted in left leg. PERRLA. Strong, equal hand director of intercollegiate athletics bilaterally. Lungs clear x 5 lobes. IV Site on Arrival: 20 gauge in the left anticubital. IV Fluids: 0.9% NaCl at KVO. 0 mL infused prior to laborer drying department. Pre Procedural Pulses: bilateral dorsalis pedis was Absent. Pre Procedural Pulses: bilateral posterior tibial was Absent. Pre Procedural Pulses: bilateral radial was 2+. Oxygen started at 2liters/min via nasal canula. bilateral groins was prepped with chloroprep then draped in the usual sterile fashion. Baseline sample Acquired. HR: 108 BPM. Physician notified. Equipment: Peripheral. Cardiac Cath Pack. ACIST Manifold Kit Model BT 2000. Heparinized Saline (2 units/mL), 1000 mL bag. Physician arrived. Physician scrubbed in. Immediate Pre-Procedure Time Out. Correct Patient: Yes; Correct Procedure: Yes; Correct Site: Yes; Correct Patient Position: Yes; Correct Supplies: Yes; Dried Flammable Prep: Yes; Blood Products Available: No;. Lidocaine 1% infiltrated to the right groin. Arterial access obtained with micropuncture set. A 5Fr UF catheter in over wire. Abdominal aortogram performed in SANCHEZ @ 10 mL/sec for a total of 30 mL. Glidewire inserted. 6FR sheath exchanged for an 8FR sheath. Cat8 kit loaded over the glidewire. Thrombectomy performed. Results checked. Thrombectomy performed. Catheter out. Results checked. ACT drawn. Results 130 seconds. Therapeutic limits - pre-heparin administration 90-150 seconds and monitoring heparin during a vascular procedure >250 seconds. Inflation number : 1 A AB ARMADA 35 OTW [id number] was prepped and advanced across the Ostial Superficial Femoral, Left , then inflated to 12 CHAVEZ for 2:10 seconds. Inflation number: 1 The AB ARMADA 35 OTW [id number] was reinflated across the External Iliac, Left, to 14 CHAVEZ for 0:13 seconds. Inflation number: 2 The AB ARMADA 35 OTW [id number] was reinflated across the External Iliac, Left, to 18 CHAVEZ for 0:32 seconds. Inflation number: 2 The AB ARMADA 35 OTW [id number] was reinflated across the Ostial Superficial Femoral, Left, to 18 CHAVEZ for 0:32 seconds. Cat8 reloaded onto the guidewire. Thrombectomy performed. Inflation Number : 3 A AB OMNILINK STENT [id number] -Lot Number# [id number] was prepped and advanced across the External Iliac, Left. The stent was deployed at 20 CHAVEZ for 1:04 seconds. Stent expiration date: 07/24/2022. Stent balloon out over wire. Cat8 inserted and seated in the profunda. Thrombectomy performed. Rim catheter inserted. Rim catheter out. Results checked. Left leg runoff performed at 10mL for a total of 20mL. 8FR long sheath exchanged for a short 8FR sheath. Right leg runoff performed at 10mL for a total of 30mL. Everything out. Post Procedure: Pulses reassessed and unchanged. A Suture was successful obtaining hemostatsis at the Right Femoral artery insertion site. PERRLA. Strong, equal hand director of intercollegiate athletics bilaterally. No VTE prophylaxis required. Estimated blood loss: 700mL. Medication's Wasted: Lidocaine 1% = 10 mL. Medication's Wasted: Other = Cardene 24.5 mg. Total IV fluids: 113 mL. Contrast type used: Omnipaque 300 mgI/mL, 500 mL bottle. Complications: None. Vital chart was stopped. Procedure completed. Patient transferred by bed to 1st floor. Procedure Medications Start: 3:21 PM Stop: 3:21 PM Medication: Versed Amount: 1 mg Route: I.V. Start: 3:21 PM Stop: 3:21 PM Medication: Fentanyl Amount: 50 mcg Route: I.V. Start: 3:37 PM Stop: 3:37 PM Medication: Versed Amount: 1 mg Route: I.V. Start: 3:37 PM Stop: 3:37 PM Medication: Fentanyl Amount: 50 mcg Route: I.V. Start: 4:06 PM Stop: 4:06 PM Medication: Versed Amount: 1 mg Route: I.V. Start: 4:06 PM Stop: 4:06 PM Medication: Fentanyl Amount: 50 mcg Route: I.V. Start: 4:21 PM Stop: 4:21 PM Medication: Heparin Amount: 7000 units Route: I.V. Start: 4:31 PM Stop: 4:31 PM Medication: Versed Amount: 1 mg Route: I.V. Start: 4:31 PM Stop: 4:31 PM Medication: Fentanyl Amount: 50 mcg Route: I.V. Start: 4:57 PM Stop: 4:57 PM Medication: Cardene Amount: 500 mcg Route: I.A. I, the attending physician, have reviewed and verified all procedure medications. Yes, all medications given per verbal order History/Risk Factors Hypertension: No Dyslipidemia: No Peripheral Arterial Disease (PAD): No Obesity: No Renal Disease: No Prior Interventions PCI: No CABG: No Valve Surgery: No Report Signatures Finalized by Dulce Hudson MD on 01/27/2021 07:03 AM
--- NOTE | 2021-01-13 15:10 | P.HP_ITS ---
Providers/Chief Complaint Primary Care Provider: Tray Mcclellan DO Chief Complaint: LEFT LEG PAIN History of Present Illness Bernard Alonzo is a 85 year old male past medical history consistent with coronary artery disease status post stent in 2006, ischemic cardiomyopathy, congestive heart failure, permanent pacemaker placement, history of esophageal adenocarcinoma status post radiation prior history of smoking presented with all of a sudden back and leg pain to the ER. He was noted to have mottled left leg and icy cold left foot. He is not able to move the leg or left foot he is not sure whether he can feel my hand or not. According to the patient it comes on to him all of a sudden this morning he was battling with excruciating pain for few hours before coming to the ER. He denies any history of atrial fibrillation. He denies chest pain PND orthopnea presyncope syncope. He denies trauma to the left leg. He denies any history of peripheral arterial disease. Medications/Allergies Home Medications Medication Instructions Recorded Confirmed Last Taken Type cholecalciferol (vitamin D3) 25 mcg PO DAILY 01/12/20 01/13/21 01/13/21 History [Vitamin D3] clopidogrel [Plavix] 75 mg PO DAILY 01/12/20 01/13/21 01/13/21 History finasteride 5 mg PO DAILY 01/12/20 01/13/21 01/12/21 History hydrocodone-acetaminophen 1 tab PO Q6H PRN 01/12/20 01/13/21 06/04/20 History metformin 500 mg PO DAILY 01/12/20 01/13/21 01/13/21 History simvastatin 40 mg PO DAILY 01/12/20 01/13/21 01/12/21 History ferrous gluconate 324 mg FEEDING TUBE BID #60 tab 06/08/20 01/13/21 01/13/21 Rx pantoprazole 40 mg PO BID #60 each 06/08/20 01/13/21 01/13/21 Rx diltiazem HCl 120 mg PO DAILY 01/13/21 01/13/21 Unknown History Allergies Allergy/AdvReac Type Severity Reaction Status Date / Time No Known Allergies Allergy Verified 01/13/21 09:53 PFSH Acute PFSH: Medical History (Updated 01/13/21 @ 15:18 by Dulce Hudson MD) BPH (benign prostatic hyperplasia) CAD (coronary artery disease) Diabetes mellitus Diverticulosis Esophageal cancer Hypertension Surgical History H/O bilateral inguinal hernia repair H/O exploratory laparotomy I swallowed a safety pin when I was a kid and they had to open me up to get it out History of foot surgery R ankle fracture History of incisional hernia repair x 2 PEG (percutaneous endoscopic gastrostomy) status Port-A-Cath in place Right subclavian S/P appendectomy Status post coronary artery stent placement x 1 2006 Status post placement of cardiac pacemaker Family History Other Cancer Denies family history of Anesthesia complication Bleeding disorder Social History Quit status (tobacco): has quit using tobacco Former quit date comment: 1979 Alcohol intake: former Former alcohol use details: Quit in September. Formerly heavy drinker Lives independently: Yes Household members: spouse Marital status: Vitals/I&O/Wt Last Vital Signs Temp 98.7 F 01/13/21 15:06 Pulse 91 01/13/21 15:06 Resp 18 01/13/21 15:06 BP 134/92 01/13/21 15:06 Pulse Ox 98 01/13/21 15:06 Weight last 48 hrs Weight 150 lb Physical Exam Narrative: EXAM NARRATIVE: GENERAL: Patient is alert, awake and oriented x3. NECK: No jugular vein distension. HEENT: No cyanosis. No icterus. No pallor. HEART: Regular S1 and S2. No murmur, rub or gallop. LUNGS: Clear to auscultate bilaterally. ABDOMEN: Soft, nontender and nondistended. Positive bowel sounds. No guarding, rebound or tenderness. CENTRAL NERVOUS SYSTEM: Grossly nonfocal. EXTREMITIES: Lower extremities without edema bilaterally. Pulses not palpable in the left lower extremities, including femoral popliteal and dorsalis pedis and posterior tibial. He has a right femoral pulse palpable. Left foot is icy cold leg is mottled. He cannot move his left leg or foot Data : 01/13/21 10:27 01/13/21 10:27 A&P Assessment and plan (1) Ischemic leg pain: Status: Acute (2) Hypertension: Well-controlled. Continue home medicine Status: Acute Qualifiers: Hypertension type: essential hypertension Qualified Code(s): I10 - Essential (primary) hypertension (3) CAD (coronary artery disease): Stable. Continue current regimen Status: Acute Qualifiers: Coronary Disease-Associated Artery/Lesion type: [place] artery [place] vs. transplanted heart: [place] heart Associated angina: without angina Qualified Code(s): I25.10 - Atherosclerotic heart disease of [place] coronary artery without angina pectoris Additional A&P Information Patient has acute ischemic leg. We will proceed with emergent peripheral angiogram and percutaneous and intervention/thrombectomy if indicated. Patient is already on heparin. Further plan replies as per progress of the patient. Attestations Medical Necessity Statement*: I am expecting his stay to cross more than 2 midnights. Coding Level of Care Code New Pt Acute Plug Grower for Oleg Loya Patient Type New History Comprehensive Exam Comprehensive Medical Decision Making High Complexity Diagnoses Ischemic leg pain M79.606; I99.8 Hypertension I10 Hypertension type: essential hypertension CAD (coronary artery disease) I25.10 Coronary Disease-Associated Artery/Lesion type: [place] artery [place] vs. transplanted heart: [place] heart Associated angina: without angina
[2021-01-13 17:58] LABS: Glucose Point of Care 143 mg/dL (70-110)
[2021-01-13] MEDS: pantoprazole DR 40 mg Tablet PO (18:43)
[2021-01-13] MEDS: clopidogrel 300 mg Tablet PO (18:43)
[2021-01-13 19:12] LABS: Basophils % 0.3 %; Eosinophils % 0.1 %; Hemoglobin 10.7 g/dL (11.7-16.6); Lymphocytes # 0.5 10^3/uL (0.8-4.8); Mean Corpuscular HGB Conc 30.6 g/dL (30.0-36.0); Mean Corpuscular Hemoglobin 28.9 pg (28.0-34.0); Mean Corpuscular Volume 94.6 fL (80-94); Monocytes # 0.9 10^3/uL (0.2-0.9); Neutrophils # 7.48 10^3/uL (1.8-7.7); Neutrophils % 83.3 %; Nucleated Red Blood Cells % 0 %; Platelet Count 269 10^3/cmm (130-400)
[2021-01-13 19:38] LABS: Partial Thromboplastin Time > 250.0 SECONDS (23.9-36.7)
[2021-01-13 20:35] LABS: Glucose Point of Care 111 mg/dL (70-110)
[2021-01-13 23:08] LABS: Partial Thromboplastin Time 37.1 SECONDS (23.9-36.7)
[2021-01-14] VITALS (19 sets, daily range): BP systolic 79–114; BP diastolic 49–86; PULSE 87–113; RESP 7–29; TEMP 36.7–37.1; O2SAT 86–96
--- NOTE | 2021-01-14 01:25 | PC.NURSE ---
Sheath Removal Initiated sheath pull at 0057 per protocol. Hemostasis achieved immediately. Pressure held for 30 minutes. No hematoma formation. Patient tolerated well. Patient was instructed to notify nurse of bleeding or pain. Nurse will continue to monitor.
--- NOTE | 2021-01-14 02:21 | PC.NURSE ---
Shift Summary Patient is resting in bed watching tv most of the night, has continous IV fluids going and still has his sheath until PTT comes back within range. at 2300 Ptt was 34 so Sheath was pulled at midnight pressure was held for 30min and site looks good after, patient tolerated it well and is now resting in bed for 6 hours until he is able to get up, at 0600. Patient is pleasant and cooperative, uses the urinal with assistance. Nurse resuming care for him at 0230
--- NOTE | 2021-01-14 03:19 | PC.NURSE ---
POST SHEATH REMOVAL Dressing to right groin remains c,d,i. No s/s of bleeding or hematoma formation observed. Patient denies pain to site. Pulse palpable to bilateral lower extremities.
[2021-01-14 04:51] LABS: Basophils % 0.3 %; Eosinophils % 0.5 %; Hematocrit 30.6 % (42.0-52.0); Hemoglobin 9.6 g/dL (11.7-16.6); Lymphocytes # 0.5 10^3/uL (0.8-4.8); Lymphocytes % 6.3 %; Mean Corpuscular HGB Conc 31.4 g/dL (30.0-36.0); Mean Corpuscular Hemoglobin 29.5 pg (28.0-34.0); Mean Corpuscular Volume 94.2 fL (80-94); Mean Platelet Volume 9.6 fL (7.4-10.4); Monocytes # 0.8 10^3/uL (0.2-0.9); Monocytes % 10.2 %; Neutrophils # 6.23 10^3/uL (1.8-7.7); Neutrophils % 82.4 %; Nucleated Red Blood Cells % 0 %; Platelet Count 231 10^3/cmm (130-400); Red Blood Count 3.25 10^6/uL (4.1-5.3); Red Cell Distribution Width 17.2 % (12.1-15.1); White Blood Count 7.6 10^3/uL (4.0-10.0)
[2021-01-14 05:24] LABS: Alanine Aminotransferase 20 U/L (0-41); Albumin Level 2.9 g/dL (3.5-5.2); Alkaline Phosphatase 85 IU/L (40-130); Anion Gap 10.4 (5-19); Aspartate Amino Transferase 39 U/L (0-40); Blood Urea Nitrogen 18 mg/dL (8-23); Calcium 8.1 mg/dL (8.5-10.5); Carbon Dioxide 26 mmol/L (22-29); Chloride 105 mmol/L (98-107); Globulin 2.6 g/dL (1.3-4.6); Glucose 121 mg/dL (65-115); Osmolality Calculated 287 mOsm/kg (285-295); Potassium 4.4 mmol/L (3.5-5.1); Sodium 137 mmol/L (136-145); Total Bilirubin 0.5 mg/dL (0.15-1.2); Total Protein 5.5 g/dL (6.6-8.7)
--- NOTE | 2021-01-14 05:51 | PC.NURSE ---
Dressing to right groin remains C,D,I. No s/s of bleeding or hematoma formation observed. Patient denies pain to site.
[2021-01-14 06:49] LABS: Glucose Point of Care 133 mg/dL (70-110)
[2021-01-14] MEDS: atorvastatin 40 mg Tablet 20 MG PO (10:04)
[2021-01-14] MEDS: pantoprazole DR 40 mg Tablet PO (10:05)
[2021-01-14] MEDS: finasteride 5 mg Tablet PO (10:05)
[2021-01-14 11:33] LABS: Glucose Point of Care 180 mg/dL (70-110)
--- NOTE | 2021-01-14 13:31 | PC.CHAP ---
Pastoral Care Encounter/Spiritual Assessment Type of Contact [] Declined reimbursement consultant visit [] Patient/Family/Request visit [] Outpatient visit [] Follow-up visit [] Physician referral [] Code/Alert [xx] Routine visit [] Staff referral [] Actively dying [] Patient sleeping [] Family support [] [] Out of room [] Palliative care [] [] Receiving care in room [] Pre-surgical visit [] Trauma [] Long length of stay [] ICU visit [] Other: Relational/Emotional Strength [] Patient feels connected with others/family/visitors/staff [] Distress [] Loneliness/isolation [] Abandonment Spirituality of Patient [] Person of Pallavi [] Attends Scientology of their Pallavi [] Believes in Prayer [] Reads Bible or Latter Day materials [] There are Spiritual issues to be addressed Screen Door Maker Interventions [] Prayer [] Active listening [] Non-anxious presence [] Spiritual/emotional support [] Crisis/trauma care [] Spiritual counseling [] Bereavement support [] Provided bereavement packet [] Provided Bible/devotional materials [] Provided toy/stuffed animal, coloring book to patient or family member [] Provided Communion [] Anointing/Portia [] Salvation [xx] Completed spiritual assessment [] Other: Impact on Illness or Injury [xx] Angry [] Fearful [] Anxious [] Often cries [] Exhaustion [] Unable to work [] Unable to attend muslim [] Unable to walk/stand [] Unable to read [] Unable to drive [] Unable to eat/drink [] Unable to sleep [] Unable to be with family [] Patient intubated [] Other: Summary Short visit with patient OK but he refused prayer. He is not of Sikh pallavi. He was somewhat hateful toward reimbursement consultant and did not want reimbursement consultant in room. The topic of conversation was his disgust for prayer and especially women who prayed. He expressed his disbelief for both. Therefore, reimbursement consultant did not attempt to visit patient in other bed in same room. Time spent with patient 3 minutes
--- NOTE | 2021-01-14 14:54 | PC.NURSE ---
Patients IV removed with no issues. Pressure dressing applied, catheter intact. Patient tolerated well. Patient education given, patient and family have no questions regarding discharge instructions. Patient wheeled out with family.
--- NOTE | 2021-01-18 21:36 | PM.DCS ---
Discharge Providers Date of Admission: 01/13/21 16:28 Date of Discharge: January 18, 2021 Attending Provider at Admission: Dulce Hudson MD Attending Provider at Discharge: Dulce Hudson MD Primary Care Provider: Tray Kinney DO Diagnoses at Discharge Discharge Diagnosis (1) Ischemic leg pain: Status: Resolved (2) Hypertension: Status: Acute Qualifiers: Hypertension type: essential hypertension Qualified Code(s): I10 - Essential (primary) hypertension (3) CAD (coronary artery disease): Status: Acute Qualifiers: Coronary Disease-Associated Artery/Lesion type: s[place] tribe artery Robinson vs. transplanted heart: siletz tribe heart Associated angina: without angina Qualified Code(s): I25.10 - Atherosclerotic heart disease of siletz tribe coronary artery without angina pectoris Reason for Visit Reason for Visit: LEFT LEG PAIN Hospital Course Hospital Course 85-year-old male past medical history significant hypertension hyperlipidemia diabetes mellitus history of smoking presented with acute limb threatening ischemia of the left leg. He was immediately taken to the [facility] he was noted to have acutely occluded left common iliac vessel in its proximal section. Lesion was immediately crossed with a Glidewire and with the help of seeker. Penumbra cat 8 catheter was used for extensive thrombectomy. Distal common iliac to mid left external iliac artery was noted to have severely stenotic Atherosclerotic plaque. It was treated with Zilver drug-eluting stent. Excellent angiographic result with good flow was noted from common iliac to below the knee and into the foot. Three-vessel runoff was noted. Overnight patient did not have any event. Today he is walking around he is complaining of some questionable sensory loss of the plantar aspect of left foot otherwise denies any motor deficit. He has good palpable anterior and posterior tibial pulses. His right groin wound looks good. His both legs looks warm pink and moist. He is walking around without any difficulty. He is being discharged home. He will follow up with us in the clinic in 7 days. Physical Exam Narrative: EXAM NARRATIVE: GENERAL: Patient is alert, awake and oriented x3. NECK: No jugular vein distension. HEENT: No cyanosis. No icterus. No pallor. HEART: Regular S1 and S2. No murmur, rub or gallop. LUNGS: Clear to auscultate bilaterally. ABDOMEN: Soft, nontender and nondistended. Positive bowel sounds. No guarding, rebound or tenderness. CENTRAL NERVOUS SYSTEM: Grossly nonfocal. EXTREMITIES: Lower extremities without edema bilaterally. Pulses palpable in both legs both legs looks pink warm moist. Right groin looks good without hematoma Discharge Data Data Completed and Pending: Completed Studies During Hospitalization Category Date Time Status CT lumbar spine w o con* [id number] Stat Cat Scan 01/13/21 10:09 [place] [id number] Stat Ultrasound 01/13/21 12:33 Completed Pending at discharge Category Date Time Status [employer] request for service Stat Exams 01/13/21 15:07 Taken Vitals: Last Vital Signs Temp 98.7 F 01/14/21 14:52 Pulse 100 01/14/21 14:52 Resp 12 01/14/21 14:52 BP 100/86 01/14/21 14:52 Pulse Ox 94 01/14/21 14:52 Discharge Plan Discharge Patient Disposition: Home Condition: Stable Prescriptions: New apixaban 2.5 mg tablet 2.5 mg PO BID Qty: 60 RF: 0 Continued ferrous gluconate 324 mg (37.5 mg iron) tablet 324 mg feeding tube BID Qty: 60 RF: 0 pantoprazole [address] for susp in packet 40 mg PO BID Qty: 60 RF: 1 clopidogrel [Plavix] 75 mg Tablet 75 mg PO DAILY RF: 0 Hold Instructions: Resume on 05/22/20. simvastatin 80 mg Tablet 40 mg PO DAILY RF: 0 hydrocodone-acetaminophen 7.5-325 mg Tablet 1 tab PO Q6H PRN (Reason: Pain) RF: 0 metformin 1,000 mg Tablet 500 mg PO DAILY RF: 0 finasteride 5 mg Tablet 5 mg PO DAILY RF: 0 cholecalciferol (vitamin D3) [Vitamin D3] 25 mcg (1,000 unit) Capsule 25 mcg PO DAILY RF: 0 diltiazem HCl 120 mg capsule,extended release 24hr 120 mg PO DAILY RF: 0 Discharge Orders: Discharge Order (Routine); Ordered 01/14/21 Ordered By: Dulce Hudson Referrals: Dulce Hudson MD [Physician] - (YOU HAVE A FOLLOW UP APPOINMENT WITH DR. HUDSON ON January AT 345 PM. IF YOU HAVE ANY QUESTIONS OR NEED TO RESCHEDULE PLEASE CALL [phone]) Tray Kinney, [Primary Care Provider] - (YOU HAVE A FOLLOW UP APPOINTMENT WITH DR. KINNEY ON SundayDecember AT 1100. IF YOU HAVE ANY QUESTIONS OR NEED TO RESCHEDULE PLEASE CALL [phone].) Miguelina Pereira FNP [Nurse Practitioner] - (YOU HAVE A FOLLOW UP APPOINTMENT ON December AT 1315. IF YOU HAVE ANY QUESTIONS OR NEED TO RESCHEDULE PLEASE CALL [phone].) Discharge Diet: Cardiac and Low Salt Discharge Activity: Increase activity as tolerated Patient Instructions: Apixaban (By mouth), Coronary Artery Disease (DC), Peripheral Vascular Stent Placement (DC), Peripheral Vascular Angioplasty (DC), Post Angiogram Home Care Instructions Activity Restrictions/Additional Instructions: Follow-up with Miguelina Pereira cardiology nurse practitioner in 7 days, follow-up with Dr. Hudson in 6 to 8 weeks. Please keep an eye on your urine or stool if you notice blood in the urine or stool or black tar-like stools please stop apixaban and inform Dr. Hudson's office Discharge Attestations Time Spent in Discharge Care*: less than 30 min Status at Discharge: Cognitive status at discharge: cognitively intact, Behavioral status at discharge: cooperative, Quality Metrics Clinical Quality Measures During this hospital stay, did patient experience: None Coding Level of Care Code Established Pt Acute Chg FW DC note Patient Type Established History Detailed Exam Detailed Medical Decision Making Moderate Complexity Diagnoses Ischemic leg pain M79.606; I99.8 Hypertension I10 Hypertension type: essential hypertension CAD (coronary artery disease) I25.10 Coronary Disease-Associated Artery/Lesion type: siletz tribe artery Robinson vs. transplanted heart: siletz tribe heart Associated angina: without angina
== END 2021-01-14 14:56 | disposition home or self-care (01) | DRG 271 ==
LOC: ER 15:05 → CCL 16:05 → CSU 16:29
PROVIDERS: Student in an Organized Health Care Education/Training Program; Admitting Provider Internal Medicine Cardiovascular Disease; Emergency Provider Family Medicine; PCP Emergency Medicine Emergency Medical Services; Visit Provider Internal Medicine Cardiovascular Disease
PROC: B41DYZZ Fluoroscopy of Aorta and Bilateral Lower Extremity Arteries using Other Contrast (ICD-10-PCS; principal; 2021-01-13 15:00)
PROC: B41DYZZ Fluoroscopy of Aorta and Bilateral Lower Extremity Arteries using Other Contrast (ICD-10-PCS; 2021-01-13 15:00)
DX: E11.51 Type 2 diabetes mellitus with diabetic peripheral angiopathy without gangrene (principal); C15.9 Malignant neoplasm of esophagus, unspecified; I70.222 Atherosclerosis of native arteries of extremities with rest pain, left leg; I25.10 Atherosclerotic heart disease of native coronary artery without angina pectoris; I11.0 Hypertensive heart disease with heart failure; I50.9 Heart failure, unspecified; I25.5 Ischemic cardiomyopathy; E78.5 Hyperlipidemia, unspecified; I74.3 Embolism and thrombosis of arteries of the lower extremities; Z79.02 Long term (current) use of antithrombotics/antiplatelets; Z79.84 Long term (current) use of oral hypoglycemic drugs; Z92.3 Personal history of irradiation; Z92.21 Personal history of antineoplastic chemotherapy; Z95.828 Presence of other vascular implants and grafts; Z95.5 Presence of coronary angioplasty implant and graft; Z95.0 Presence of cardiac pacemaker; Z87.891 Personal history of nicotine dependence
CPT/HCPCS: 36415; 36416; 37184; 37221; 72131; 75625; 75716; 80053; 82550; 82962; 85025; 85347; 85730; 86850; 86900; 93926; 96365; 96366; 96372; 96375; 96376; 99291; 99292; C1725; C1769; C1876; C1887; C1894; J1170; J1644; J1815; J2250; J2270; J2405; J3010; J7030; Q9967

== ENCOUNTER → 2021-01-20 11:54 | Outpatient (BNVA) | payer OTHER, MEDICARE, SELFPAY | PROVIDERS: PCP Emergency Medicine Emergency Medical Services; Visit Provider Nurse Practitioner Family | DX: I73.9 Peripheral vascular disease, unspecified (principal) | CPT/HCPCS: 80048 ==

== ENCOUNTER 2021-02-01 08:42 | Outpatient (CLI) | payer OTHER, SELFPAY ==
[2021-02-01] MEDS: alteplase 1 mg/mL SDV 2 mL 2 MG IV (09:11)
[2021-02-01 09:38] LABS: Basophils % 0.5 %; Eosinophils # 0.1 10^3/uL (0.0-0.8); Eosinophils % 1.8 %; Hematocrit 32.2 % (42.0-52.0); Lymphocytes # 0.4 10^3/uL (0.8-4.8); Lymphocytes % 6.5 %; Mean Corpuscular HGB Conc 31.1 g/dL (30.0-36.0); Mean Corpuscular Hemoglobin 29.3 pg (28.0-34.0); Mean Corpuscular Volume 94.4 fL (80-94); Mean Platelet Volume 9.6 fL (7.4-10.4); Monocytes # 0.6 10^3/uL (0.2-0.9); Neutrophils # 4.52 10^3/uL (1.8-7.7); Nucleated Red Blood Cells % 0 %; Platelet Count 244 10^3/cmm (130-400); Red Blood Count 3.41 10^6/uL (4.1-5.3); Red Cell Distribution Width 16.5 % (12.1-15.1); White Blood Count 5.6 10^3/uL (4.0-10.0)
[2021-02-01 09:53] LABS: Alanine Aminotransferase 15 U/L (0-41); Alkaline Phosphatase 110 IU/L (40-130); Anion Gap 13.3 (5-19); Aspartate Amino Transferase 18 U/L (0-40); Blood Urea Nitrogen 24 mg/dL (8-23); Calcium 8.7 mg/dL (8.5-10.5); Carbon Dioxide 26 mmol/L (22-29); Chloride 101 mmol/L (98-107); Globulin 2.7 g/dL (1.3-4.6); Glucose 132 mg/dL (65-115); Osmolality Calculated 288 mOsm/kg (285-295); Potassium 4.3 mmol/L (3.5-5.1); Sodium 136 mmol/L (136-145); Total Bilirubin 0.4 mg/dL (0.15-1.2); Total Protein 6.7 g/dL (6.6-8.7)
[2021-02-01 14:56] LABS: Ferritin 42 ng/mL (30-400); Iron 40 ug/dL (59-158); Percent Saturation 11.8 % (20-50); Total Iron Binding Capacity 338 mcg/dl; Unsaturated Iron Binding 298 ug/dL (112-347)
--- NOTE | 2021-02-01 17:15 | ONC FU_ITS ---
Dr. Bhagat follow up note Patient: Bernard Alonzo Unit #: [id number]: [id number] Dicatated By: Akiko Bhagat M.D.Date of Visit:February 01, 2021 Onc Med Follow-up/Prog Note History of Present Illness: Mr. Alonzo is an 85-year-old gentleman who presented with a history of progressive dysphagia since November 2019 along with a 20+ pound weight loss. He underwent EGD on March 18, 2020 which did show a partially obstructing 5 cm long distal esophageal mass starting at 39 cm from incisors up to 44 cm. An upper EUS revealed that the hypoechoic mass invaded muscularis propria and adventitia consistent with T3 disease coupled with the presence of 2 paraesophageal lymph nodes (not amenable to biopsy). 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 He then underwent CT scan of the chest and abdomen on March 30, 2020. This reported the mass involving the distal esophagus near the gastroesophageal junction causing delayed clearance of barium from the esophagus. There are a few prominent to enlarged mediastinal lymph nodes with 1 of the larger lymph nodes measuring 2.0 x 0.9 cm. There were hepatic and left renal cyst no intra-abdominal lymphadenopathy. It was noted that a pacemaker was present as well. A balloon dilatation was performed and the entire stomach was examined and found to be endoscopically normal. PET/CT imaging from 05/21/2020 revealed hypermetabolic activity in the distal esophagus without neighboring FDG lymph node activity or radiographic concern for metastasis. There was no material FDG activity in the mediastinum. He has a past medical history of coronary artery disease/IA, stenting and had been taking aspirin as well as Plavix. It is noted that his past medical history includes heavy drinking until recently . He also has history of hypertension and type 2 diabetes. His past surgical history includes placement of a pacemaker 3 abdominal surgeries (appendectomy and 2 trauma related surgeries). Foot surgery and venous access device placement per Dr Cano. Mr. Alonzo was seen in consultation by radiation oncology and in medical oncology for further evaluation and recommendations for continuing plan of care. Staging PET scan done on May 21, 2020 showed hypermetabolic metastatic GE junction with SUV of 9.49. No other suspicious focus of increased uptake seen in chest and abdomen.Mr. Alonzo was offered treatment for concurrent chemoradiation as influenced by the CROSS trial. Mr. Garrison began his first chemotherapy treatment on June 02, 2020. He has been treated with carboplatin paclitaxel weekly in combination with daily radiation. Mr. Alonzo was admitted to [facility] on 06/05/2020 with acute nausea vomiting and GI bleeding. He presented to the emergency room with nausea vomiting but had also noticed that he was having increased esophageal pain 2 days prior to his present Tatian to the emergency room. It was noted at that time that his hemoglobin was 7.7. He was felt to have a GI bleeding as well. Mr. Perez stated that he had been taking ibuprofen for pain despite being on aspirin and Plavix for history of coronary artery disease/IA and stenting. He had been started on pantoprazole but admitted that he had not been taking it much due to nausea. Mr. Garrison was admitted and received 2 units of PRBCs and underwent endoscopy. It was felt that the bleeding was most likely coming from esophageal tumor with chronic use of the ibuprofen. He did had elevated lactate but was negative CT scan and was felt the elevated lactate was due to the tumor burden. He also underwent PEG tube placement which was uneventful. His hemoglobin remained stable and he was discharged with PEG tube feedings???1 to 1/2 cans 3 times a day as tolerated. His aspirin and Plavix were placed on hold for at least 2 weeks. His carvedilol was placed on hold due to hypotension. He was discharged on 06/08/2020. He did resume chemotherapy with Carboplatin/paclitaxel on 06/09/2020. He tolerated it well.Completed combined chemoradiation with weekly carboplatin/Taxol on July 16, 2020 Mr Alonzo has seen surgeon for possible post chemo/radiation esophagectomy, as per patient once surgeon noticed PEG tube, immediately he was told that he is not a candidate for esophagectomy. And patient himself was not interested in esophagectomy either. Because of indigestion and painful swallowing, patient was referred to gastroenterology, patient was evaluated by Dr. Cruz in [place] and patient underwent EGD and esophageal dilatation on August 27, 2020, biopsies were obtained which showed mild chronic inflammation no dysplasia or malignancy seen. As per patient after esophageal dilation, he felt much better and start swallowing food without any problem. Follow-up CT PET scan done on October 02, 2020 showed negative for malignancy, radiation therapy inflammatory infiltrate in the medial lower lobes Came for follow-up, complaining of generalized weakness and fatigue, as per patient about 2 weeks ago he underwent blood clot removal from his left leg and Dr. Hudson did this procedure in cardiac cath and also put him on Eliquis for 4 months due to that he could not go for esophageal dilation in [place]. Now with mild to moderate dysphagia but using G-tube on regular basis to maintain nutrition and hydration. Denies any melena or hematochezia, denies any hemoptysis or hematemesis, denies any diarrhea constipation, denies any jaundice, denies any abdominal pain. Medications: Cholecalciferol 1 Capsule (of 25 mcg ) Oral daily, Finasteride 1 Tablet (of 5 mg) Oral daily, HYDROcodone-Acetaminophen 1 Tablet (of 7.5-325 mg) Oral b.i.d., Maalox Max Suspension Oral PRN, metFORMIN HCl 0.5 Tablet (of 1000 mg) Oral daily, Pantoprazole Sodium 40 mg (of 40 mg) Pack Oral b.i.d., Simvastatin 0.5 Tablet (of 80 mg) Oral daily Allergies: No Known Allergies. Review of Systems: Review of Systems is not available for this patient. Vital Signs: Performed on February 01, 2021 10:50 Height - 67.00 in Weight - 151.2 lbs (LOW) BSA - 1.80 sq.m BMI - 23.68 Temperature - 95.9 F (LOW) Pulse - 92 /min Respiration - 18 /min BP - 127/66 mm(hg) O2 Sat - 99 % Pain - 0 Fatigue - 5 Performance Status: 1 - No physically strenuous activity, but ambulatory and able to carry out light or sedentary work (e.g. office work, light house work). (ECOG) Physical Examination: ENMT - No mouth sores, no thrush, no jaundice, Respiratory - Lungs are clear to auscultation, Cardiovascular - Regular rate and rhythm of heart, Abdomen - Soft, bowel sounds present, Extremities - No visible edema or rash. Lab/Imaging: Test performed on Oct 28, 2020 13:55 Sodium 136 mmol/L Potassium 4.3 mmol/L Chloride 101 mmol/L CO2 26 mmol/L Anion Gap 13.3 BUN 19 mg/dL Creatinine 0.6 mg/dL Cr Clearance (Est) 88.2200 mL/min Glucose 142 mg/dL Osmolality - Calculated 287 mOsm/kg Calcium 9.3 mg/dL Protein, Total 6.9 g/dL Albumin 3.9 g/dL Globulin 3.0 g/dL Bilirubin, Total 0.3 mg/dL ALT (SGPT) 16 U/L AST (SGOT) 17 U/L Alkaline Phosphatase 123 IU/L WBC 5.1 10 3/uL RBC 3.99 10 6/uL HGB 11.9 g/dL HCT 38.3 % MCV 96.0 fL MCH 29.8 pg MCHC 31.1 g/dL RDW 15.7 % Platelet Count 236 10 3/cmm MPV 9.4 fL Neutrophils 3.85 10 3/uL Lymphocytes 0.4 10 3/uL Monocytes 0.6 10 3/uL Eosinophils 0.1 10 3/uL Basophils 0.0 10 3/uL Neutrophil % 76.2 % Lymphocyte % 7.9 % Monocyte % 12.3 % Eosinophil % 2.8 % Basophils % 0.6 % NRBC % 0 % Impression: 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 Hepatic and left renal cysts. Upper EUS done on April 26, 2020 showed presence of large 19 x 11 mm hypoechoic mass involving all 3 layers of esophagus. There was presence of 2 lymph nodes measuring 15 to 16 mm in size and the region surrounding the esophageal mass, due to lymph nodes being present deep to the mass, no FNA was performed. Aorta with celiac takeoff was unremarkable without any celiac lymphadenopathy Staging CT PET scan done on May 21, 2020 showed hypermetabolic mass at the gastroesophageal junction consistent with esophageal carcinoma. No findings to suggest distant or local regional disease [id number] diabetes mellitus, on oral hypoglycemic Status post pacemaker Coronary artery disease. Mr. Garrison began concurrent treatment with weekly carboplatin paclitaxel and daily radiation on June 02, 2020. He was admitted to [facility] on June 05, 2020 and discharged on June 08, 2024 acute bleeding due to chronic ibuprofen use in the presence of aspirin and Plavix . The aspirin Plavix and ibuprofen were stopped. He was started on Protonix and received blood transfusion He also had PEG tube placement for nutrition supplementation while he was inpatient. Mr Alonzo resumed chemotherapy on June 02, 2020. And completed with weekly carboplatin/Taxol on chemoradiation on July 16, 2020 Plan: Discussed with patient regarding his labs white blood count 5.6 hemoglobin 10 g compared to 11.9 g previously hematocrit 32.2 platelets 244,000 CMP within normal limits Clinically, patient doing well with no new signs symptom suggestive of recurrence of disease but new development including clot in his left leg underwent thrombectomy/clot removal by Dr. Hudson, quality assurance assessor and as per patient he was started on Eliquis about 2 weeks ago for 4 months and due to anticoagulation, esophageal dilation has been postponed and patient has persistent mild to moderate dysphagia due to esophageal stricture. His follow-up labs shows drop in his hemoglobin could be due to blood loss during procedure or during recent hospitalization, will check his iron studies if it shows deficiency, will consider parenteral iron as patient cannot swallow oral iron pill or may consider liquid iron if tolerated. Return to clinic in 1 month with CBC in the meantime continue with port maintenance Signed By: Akiko Bhagat M.D. <<Signature on File>>
== END 2021-02-01 08:43 | disposition home or self-care (01) ==
LOC: ONCMED 08:43
PROVIDERS: PCP Emergency Medicine Emergency Medical Services; Visit Provider Internal Medicine Hematology & Oncology
DX: C15.5 Malignant neoplasm of lower third of esophagus (principal); D50.9 Iron deficiency anemia, unspecified; K76.0 Fatty (change of) liver, not elsewhere classified; N28.1 Cyst of kidney, acquired; E11.59 Type 2 diabetes mellitus with other circulatory complications; I25.10 Atherosclerotic heart disease of native coronary artery without angina pectoris; Z79.4 Long term (current) use of insulin; Z95.0 Presence of cardiac pacemaker; Z79.899 Other long term (current) drug therapy
CPT/HCPCS: 36593; 80053; 82728; 83540; 83550; 85025; 96374; 99215; J2997

== ENCOUNTER 2021-02-15 06:32 | Outpatient (CLI) | payer OTHER, SELFPAY ==
[2021-02-15] MEDS: ferric carboxy (IVPB) 750 MG in sodium chloride 0.9% (100 ml) 100 ML 345 MG IV (15:03)
== END 2021-02-15 06:33 | disposition home or self-care (01) ==
LOC: ONCMED 06:34
PROVIDERS: PCP Emergency Medicine Emergency Medical Services; Visit Provider Internal Medicine Hematology & Oncology
DX: D50.9 Iron deficiency anemia, unspecified (principal)
CPT/HCPCS: 96365; J1439

== ENCOUNTER 2021-02-22 07:00 | Outpatient (CLI) | payer OTHER, SELFPAY ==
[2021-02-22] MEDS: ferric carboxy (IVPB) 750 MG in sodium chloride 0.9% (100 ml) 100 ML 460 MG IV (14:15)
== END 2021-02-22 07:01 | disposition home or self-care (01) ==
LOC: ONCMED 07:01
PROVIDERS: PCP Emergency Medicine Emergency Medical Services; Visit Provider Internal Medicine Hematology & Oncology
DX: D50.9 Iron deficiency anemia, unspecified (principal)
CPT/HCPCS: 96365; J1439

== ENCOUNTER 2021-02-24 09:45 | Outpatient (CLI) | payer OTHER, SELFPAY ==
--- NOTE | 2021-02-24 10:30 | CT_ITS ---
WS: [id number] CT ANGIOGRAPHY OF THE ABDOMINAL AORTA WITH RUNOFF TO THE ANKLES HISTORY: I73.9 - Peripheral vascular disease, unspecified TECHNIQUE: Arterial injection is performed during imaging to evaluate the aorta and runoff vessels to the ankles. MIP and volume rendering imaging has also been performed. All images are reviewed. All C T scans at [facility] use at least one of these dose optimization techniques: automated ex posure control; mA and/or kV adjustment per patient size (includes targeted exams where dose is match ed to clinical indication); or iterative reconstruction. Contrast: Omnipaque 350; 95 mL IV. DLP: 1390.2 mGycm COMPARISON: 03/11/2010 Incompletely visualized 8mm soft tissue nodule at the RIGHT lung base. There is an area of atelectasi s seen on the prior or recent examination of 01/07/2021. No nodule was present at that time. Mild enla rgement of the LEFT heart chambers. There is a small pericardial effusion. Scattered small hepatic cysts and too small to characterize hypodensities. Gallbladder is negative. E philip enhancement of the spleen. Fatty atrophy of the pancreas. No adrenal mass. Kidneys are enhancing normally. Focal cartilage cortical scar in the upper pole of the RIGHT kidney. There is a cyst in th e upper pole of the LEFT kidney measures 9 mm. Cyst is stable since 06/05/2020. A cortical scar is new . Abdominal aorta: No aneurysmal dilatation. There is a moderate amount of calcified plaque and intimal thickening. No plaque ulceration. Normal appearance of the celiac axis. Calcification within the mid to distal SMA. SANDY is still patent. Small amount calcified plaque at the origin of the LEFT renal ar rojas. Only single renal arteries are identified. Sigmoid diverticulosis without acute diverticulitis. RIGHT lower extremity arterial system: Multifocal areas of scattered calcified plaque and intimal thi ckening beginning in the proximal common iliac artery. No areas of high-grade stenosis to James's ca nal. There are 2 focal areas of 50% stenosis in James's canal. Calcified plaque through the poplitea l artery. Stenosis less than 50%. Mild narrowing of the tibioperoneal trunk. Beyond the proximal tibi a the distal arteries are poorly visualized. Very poor runoff to the ankle via all 3 vessels. LEFT lower extremity arterial system: Mild atherosclerotic plaque beginning in the common iliac arter y. There is a short segment stent beginning in the distal common iliac artery through the external il iac artery. The stent does appear patent. Calcified plaque and a few areas of intimal thickening in t he femoral artery. There is complete or near-complete occlusion of the LEFT profunda artery. Focal pl aque beginning in the distal SFA through James's canal and the popliteal artery. Stenosis never exce eds 50%. Poorly visualized runoff to the ankle. Vessels are very poorly visualized beyond the mid tib ia. Slightly better runoff to the posterior tibial artery and through the peroneal and anterior tibia l artery. CT/CT angio abd aorta runof [id number] IMPRESSION: 1. No high-grade areas of severe peripheral arterial stenosis. 2. 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 3. Patent LEFT iliac artery stent. 4. Occluded or nearly completely occluded LEFT profunda artery. 5. Stenosis less than 50% in the distal LEFT SFA to James's canal. 6. Poor distal runoff to the ankles bilaterally. This is probably related to i njection bolus and bolus timing. 7. Moderate atherosclerosis aorta with no aneurysm. 8. New focal scar involving the RIGHT renal cortex since 06/05/2020.
[2021-02-24] MEDS: iohexol 350 mg/mL 100 mL Btl IV (10:43)
== END 2021-02-24 09:46 | disposition home or self-care (01) ==
PROVIDERS: PCP Emergency Medicine Emergency Medical Services; Visit Provider Internal Medicine Cardiovascular Disease
DX: I73.9 Peripheral vascular disease, unspecified (principal); I70.0 Atherosclerosis of aorta; I70.8 Atherosclerosis of other arteries
CPT/HCPCS: 75635; Q9967

== ENCOUNTER 2021-04-01 09:33 | Outpatient (CLI) | payer OTHER, SELFPAY ==
[2021-04-01 10:07] LABS: Basophils % 0.4 %; Eosinophils # 0.1 10^3/uL (0.0-0.8); Eosinophils % 0.9 %; Hemoglobin 13.8 g/dL (11.7-16.6); Lymphocytes # 0.6 10^3/uL (0.8-4.8); Lymphocytes % 7.2 %; Mean Corpuscular HGB Conc 32.1 g/dL (30.0-36.0); Mean Corpuscular Volume 96.6 fL (80-94); Mean Platelet Volume 9.8 fL (7.4-10.4); Monocytes # 0.9 10^3/uL (0.2-0.9); Monocytes % 10.8 %; Neutrophils # 6.54 10^3/uL (1.8-7.7); Neutrophils % 80.2 %; Nucleated Red Blood Cells % 0 %; Platelet Count 195 10^3/cmm (130-400); Red Blood Count 4.45 10^6/uL (4.1-5.3); Red Cell Distribution Width 20.6 % (12.1-15.1); White Blood Count 8.2 10^3/uL (4.0-10.0)
[2021-04-01 10:37] LABS: Alanine Aminotransferase 29 U/L (0-41); Albumin Level 4.1 g/dL (3.5-5.2); Alkaline Phosphatase 122 IU/L (40-130); Anion Gap 15.4 (5-19); Aspartate Amino Transferase 24 U/L (0-40); Blood Urea Nitrogen 20 mg/dL (8-23); Carbon Dioxide 25 mmol/L (22-29); Chloride 100 mmol/L (98-107); Globulin 2.5 g/dL (1.3-4.6); Glucose 111 mg/dL (65-115); Osmolality Calculated 285 mOsm/kg (285-295); Potassium 4.4 mmol/L (3.5-5.1); Sodium 136 mmol/L (136-145); Total Bilirubin 0.4 mg/dL (0.15-1.2); Total Protein 6.6 g/dL (6.6-8.7)
[2021-04-01 18:28] LABS: Ferritin 880 ng/mL (30-400); Iron 112 ug/dL (59-158); Percent Saturation 46.8 % (20-50); Total Iron Binding Capacity 239 mcg/dl; Unsaturated Iron Binding 127 ug/dL (112-347)
--- NOTE | 2021-04-17 17:33 | ONC FU_ITS ---
Dr. Bhagat follow up note Patient: Bernard Alonzo Unit #: [id number]: 1935 Dicatated By: Akiko Bhagat M.D.Date of Visit:Apr 01, 2021 Onc Med Follow-up/Prog Note History of Present Illness: Mr. Alonzo is an 85-year-old gentleman who presented with a history of progressive dysphagia since November 2019 along with a 20+ pound weight loss. He underwent EGD on March 18, 2020 which did show a partially obstructing 5 cm long distal esophageal mass starting at 39 cm from incisors up to 44 cm. An upper EUS revealed that the hypoechoic mass invaded muscularis propria and adventitia consistent with T3 disease coupled with the presence of 2 paraesophageal lymph nodes (not amenable to biopsy). 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 He then underwent CT scan of the chest and abdomen on March 30, 2020. This reported the mass involving the distal esophagus near the gastroesophageal junction causing delayed clearance of barium from the esophagus. There are a few prominent to enlarged mediastinal lymph nodes with 1 of the larger lymph nodes measuring 2.0 x 0.9 cm. There were hepatic and left renal cyst no intra-abdominal lymphadenopathy. It was noted that a pacemaker was present as well. A balloon dilatation was performed and the entire stomach was examined and found to be endoscopically normal. PET/CT imaging from 05/21/2020 revealed hypermetabolic activity in the distal esophagus without neighboring FDG lymph node activity or radiographic concern for metastasis. There was no material FDG activity in the mediastinum. He has a past medical history of coronary artery disease/TX, stenting and had been taking aspirin as well as Plavix. It is noted that his past medical history includes heavy drinking until recently . He also has history of hypertension and type 2 diabetes. His past surgical history includes placement of a pacemaker 3 abdominal surgeries (appendectomy and 2 trauma related surgeries). Foot surgery and venous access device placement per Dr Cano. Mr. Alonzo was seen in consultation by radiation oncology and in medical oncology for further evaluation and recommendations for continuing plan of care. Staging PET scan done on May 21, 2020 showed hypermetabolic metastatic GE junction with SUV of 9.49. No other suspicious focus of increased uptake seen in chest and abdomen.Mr. Alonzo was offered treatment for concurrent chemoradiation as influenced by the CROSS trial. Mr. Garrison began his first chemotherapy treatment on June 02, 2020. He has been treated with carboplatin paclitaxel weekly in combination with daily radiation. Mr. Alonzo was admitted to [facility] on 06/05/2020 with acute nausea vomiting and GI bleeding. He presented to the emergency room with nausea vomiting but had also noticed that he was having increased esophageal pain 2 days prior to his present Tatian to the emergency room. It was noted at that time that his hemoglobin was 7.7. He was felt to have a GI bleeding as well. Mr. Perez stated that he had been taking ibuprofen for pain despite being on aspirin and Plavix for history of coronary artery disease/TX and stenting. He had been started on pantoprazole but admitted that he had not been taking it much due to nausea. Mr. Garrison was admitted and received 2 units of PRBCs and underwent endoscopy. It was felt that the bleeding was most likely coming from esophageal tumor with chronic use of the ibuprofen. He did had elevated lactate but was negative CT scan and was felt the elevated lactate was due to the tumor burden. He also underwent PEG tube placement which was uneventful. His hemoglobin remained stable and he was discharged with PEG tube feedings???1 to 1/2 cans 3 times a day as tolerated. His aspirin and Plavix were placed on hold for at least 2 weeks. His carvedilol was placed on hold due to hypotension. He was discharged on 06/08/2020. He did resume chemotherapy with Carboplatin/paclitaxel on 06/09/2020. He tolerated it well.Completed combined chemoradiation with weekly carboplatin/Taxol on July 16, 2020 Mr Alonzo has seen surgeon for possible post chemo/radiation esophagectomy, as per patient once surgeon noticed PEG tube, immediately he was told that he is not a candidate for esophagectomy. And patient himself was not interested in esophagectomy either. Because of indigestion and painful swallowing, patient was referred to gastroenterology, patient was evaluated by Dr. Cruz in [place] and patient underwent EGD and esophageal dilatation on August 27, 2020, biopsies were obtained which showed mild chronic inflammation no dysplasia or malignancy seen. As per patient after esophageal dilation, he felt much better and start swallowing food without any problem. Follow-up CT PET scan done on October 02, 2020 showed negative for malignancy, radiation therapy inflammatory infiltrate in the medial lower lobes Came for follow-up, denies any specific complaints, no fever chills, no nausea or vomiting, no diarrhea constipation, no melena hematochezia, no hemoptysis hematemesis, patient is more energetic since he received parenteral iron, no chest pain, no palpitation, no dysphagia, Medications: Cholecalciferol 1 Capsule (of 25 mcg ) Oral daily, Finasteride 1 Tablet (of 5 mg) Oral daily, HYDROcodone-Acetaminophen 1 Tablet (of 7.5-325 mg) Oral b.i.d., Maalox Max Suspension Oral PRN, metFORMIN HCl 0.5 Tablet (of 1000 mg) Oral daily, Pantoprazole Sodium 40 mg (of 40 mg) Pack Oral b.i.d., Simvastatin 0.5 Tablet (of 80 mg) Oral daily Allergies: No Known Allergies. Review of Systems: Review of Systems is not available for this patient. Vital Signs: Performed on Apr 01, 2021 11:17 Height - 67.00 in Weight - 146.4 lbs (LOW) BSA - 1.77 sq.m BMI - 22.93 Temperature - 97.1 F (LOW) Pulse - 104 /min (HIGH) Respiration - 18 /min BP - 102/67 mm(hg) O2 Sat - 98 % Pain - 0 Fatigue - 4 Performance Status: 0 - Fully active, able to carry on all predisease activities without restrictions. (ECOG) Physical Examination: ENMT - No mouth sores, no thrush, no jaundice, Respiratory - Lungs are clear to auscultation, Cardiovascular - Regular rate and rhythm of heart, Abdomen - Soft, bowel sounds present, Extremities - No visible edema. Lab/Imaging: Test performed on Oct 28, 2020 13:55 Sodium 136 mmol/L Potassium 4.3 mmol/L Chloride 101 mmol/L CO2 26 mmol/L Anion Gap 13.3 BUN 19 mg/dL Creatinine 0.6 mg/dL Cr Clearance (Est) 88.2200 mL/min Glucose 142 mg/dL Osmolality - Calculated 287 mOsm/kg Calcium 9.3 mg/dL Protein, Total 6.9 g/dL Albumin 3.9 g/dL Globulin 3.0 g/dL Bilirubin, Total 0.3 mg/dL ALT (SGPT) 16 U/L AST (SGOT) 17 U/L Alkaline Phosphatase 123 IU/L WBC 5.1 10 3/uL RBC 3.99 10 6/uL HGB 11.9 g/dL HCT 38.3 % MCV 96.0 fL MCH 29.8 pg MCHC 31.1 g/dL RDW 15.7 % Platelet Count 236 10 3/cmm MPV 9.4 fL Neutrophils 3.85 10 3/uL Lymphocytes 0.4 10 3/uL Monocytes 0.6 10 3/uL Eosinophils 0.1 10 3/uL Basophils 0.0 10 3/uL Neutrophil % 76.2 % Lymphocyte % 7.9 % Monocyte % 12.3 % Eosinophil % 2.8 % Basophils % 0.6 % NRBC % 0 % Impression: 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 Hepatic and left renal cysts. Upper EUS done on April 26, 2020 showed presence of large 19 x 11 mm hypoechoic mass involving all 3 layers of esophagus. There was presence of 2 lymph nodes measuring 15 to 16 mm in size and the region surrounding the esophageal mass, due to lymph nodes being present deep to the mass, no FNA was performed. Aorta with celiac takeoff was unremarkable without any celiac lymphadenopathy Staging CT PET scan done on May 21, 2020 showed hypermetabolic mass at the gastroesophageal junction consistent with esophageal carcinoma. No findings to suggest distant or local regional disease Gfd-[id number] diabetes mellitus, on oral hypoglycemic Status post pacemaker Coronary artery disease. Mr. Garrison began concurrent treatment with weekly carboplatin paclitaxel and daily radiation on June 02, 2020. He was admitted to [facility] on June 05, 2020 and discharged on June 08, 2024 acute bleeding due to chronic ibuprofen use in the presence of aspirin and Plavix . The aspirin Plavix and ibuprofen were stopped. He was started on Protonix and received blood transfusion He also had PEG tube placement for nutrition supplementation while he was inpatient. Mr Alonzo resumed chemotherapy on June 02, 2020. And completed with weekly carboplatin/Taxol on chemoradiation on July 16, 2020 Iron deficiency anemia, status post Injectafer 750 mg weekly on February 15 and February 22, 2021 with excellent response, hemoglobin 13.8 g on April 01, 2021 compared to 10 g prior to Injectafer infusion on February 01, 2021 Plan: Discussed with patient regarding his labs white blood count 8.2 hemoglobin 13.8 grams compared to 10 g prior to Injectafer infusion, hematocrit 43 platelets 195,000 Clinically, patient is doing well with no new signs symptom, his iron deficiency anemia has responded very well to parenteral iron now hemoglobin has normalized, patient return to clinic in 3 months with CBC, CMP and iron studies, In the meantime continue monthly port maintenance We will also consider follow-up CT scan of chest abdomen to assess esophageal cancer status. Signed By: Akiko Bhagat M.D. <<Signature on File>>
== END 2021-04-01 09:34 | disposition home or self-care (01) ==
LOC: ONCMED 09:35
PROVIDERS: PCP Emergency Medicine Emergency Medical Services; Visit Provider Internal Medicine Hematology & Oncology
DX: C15.5 Malignant neoplasm of lower third of esophagus (principal); E11.9 Type 2 diabetes mellitus without complications; Z79.84 Long term (current) use of oral hypoglycemic drugs; Z95.0 Presence of cardiac pacemaker; I25.10 Atherosclerotic heart disease of native coronary artery without angina pectoris; Z92.21 Personal history of antineoplastic chemotherapy; Z92.3 Personal history of irradiation; D50.9 Iron deficiency anemia, unspecified; Z79.899 Other long term (current) drug therapy
CPT/HCPCS: 36415; 36591; 80053; 82728; 83540; 83550; 85025; 99214

== ENCOUNTER 2021-05-06 09:09 | Outpatient (CLI) | payer OTHER, SELFPAY | END 2021-05-06 09:10 | disposition home or self-care (01) | PROVIDERS: PCP Emergency Medicine Emergency Medical Services; Visit Provider Internal Medicine Hematology & Oncology | DX: Z45.2 Encounter for adjustment and management of vascular access device (principal) | CPT/HCPCS: 96523 ==

== ENCOUNTER 2021-07-01 08:43 | Outpatient (CLI) | payer OTHER, SELFPAY ==
[2021-07-01 09:20] LABS: Basophils % 0.7 %; Eosinophils # 0.1 10^3/uL (0.0-0.8); Eosinophils % 1.2 %; Hematocrit 38.4 % (42.0-52.0); Hemoglobin 12.4 g/dL (11.7-16.6); Lymphocytes # 0.6 10^3/uL (0.8-4.8); Lymphocytes % 9.9 %; Mean Corpuscular HGB Conc 32.3 g/dL (30.0-36.0); Mean Corpuscular Hemoglobin 34.3 pg (28.0-34.0); Mean Corpuscular Volume 106.4 fl (80-94); Mean Platelet Volume 9.6 fL (7.4-10.4); Monocytes # 0.6 10^3/uL (0.2-0.9); Monocytes % 11.3 %; Neutrophils # 4.34 10^3/uL (1.8-7.7); Neutrophils % 76.7 %; Nucleated Red Blood Cells % 0 %; Platelet Count 206 10^3/cmm (130-400); Red Blood Count 3.61 10^6/uL (4.1-5.3); Red Cell Distribution Width 13.4 % (12.1-15.1); White Blood Count 5.7 10^3/uL (4.0-10.0)
--- NOTE | 2021-07-01 09:29 | CT_ITS ---
WS: [id number] CT CHEST AND ABDOMEN TECHNIQUE: Contrast-enhanced CT of the chest and abdomen with coronal and sagittal reformatted images . CLINICAL INFORMATION: RESTAGING EVALUATION/HX OF CANCER COMPARISON: CTA chest January 07, 2021 June 05, 2020. March 30, 2020. PET/CT October 02, 2020 DLP: 855.[address] scans at [facility] use at least one of these dose optimization techniques: automated e xposure control; mA and/or kV adjustment per patient size (includes targeted exams where dose is matc hed to clinical indication); or iterative reconstruction. CT CHEST: Previously described mass involving the distal esophagus and GE junction appears resolved compared to March 30, 2020. Mild circumferential thickening involving the distal esophagus and GE junction is unc hanged since the recent PET/CT. Interstitial thickening in the lung bases. This is improved compared to the prior CTA chest. Improved right upper lobe infiltrates. Indeterminant right upper lobe nodule measuring 8 mm. This appears new from the prior studies and metastatic disease is not excluded. This can be further evaluated with PE T/CT versus 3 month follow-up. Additional subpleural fibrotic appearing opacities in the right upper lobe may be infectious or inflammatory. Tiny 3 mm nodule along the left fissure is unchanged. No mediastinal or hilar lymphadenopathy. A few prominent peribronchial lymph nodes are unchanged. Nor mal caliber thoracic aorta. Proximal main pulmonary arteries are normal. Coronary calcification. No a xillary lymphadenopathy. Moderate chronic emphysematous changes. CT ABDOMEN: Diffuse fatty infiltration of the liver. Multiple similar-appearing hepatic cysts. Normal portal vein and splenic vein. Normal spleen. Fatty atrophy of the pancreas. Adrenal glands are normal. Left bishop l cysts. Cortical scarring right kidney. No hydronephrosis. No upper abdominal lymphadenopathy. CT/CT chest abdomen w con* IMPRESSION: 1. Mild thickening at the distal esophagus and GE junction likely due to treat ment-related changes. This is unchanged since the prior PET/CT. No evidence of recurrent mass. 2. 8mm nodular opacity right upper lobe is indeterminant and is new from the p rior PET/CT. Prior infiltrates in this area on the prior CTA chest January 07. This can be further evaluated with PET/CT versus [address] follow-up . 3. Additional fibrotic appearing opacities in right upper lobe likely infectio us or inflammatory. 4. No mediastinal or hilar lymphadenopathy. A few prominent peribronchial and paratracheal lymph nodes are unchanged. 5. No evidence of metastatic disease in the abdomen. 6. Stable hepatic cysts.
[2021-07-01] MEDS: iohexol 300 mg/mL 50 mL Btl PO (09:42)
[2021-07-01 09:45] LABS: Alanine Aminotransferase 12 U/L (0-41); Albumin Level 3.7 g/dL (3.5-5.2); Alkaline Phosphatase 107 IU/L (40-130); Anion Gap 13.4 (5-19); Aspartate Amino Transferase 15 U/L (0-40); Blood Urea Nitrogen 14 mg/dL (8-23); Calcium 8.8 mg/dL (8.5-10.5); Carbon Dioxide 26 mmol/L (22-29); Chloride 102 mmol/L (98-107); Ferritin 439 ng/mL (30-400); Globulin 2.5 g/dL (1.3-4.6); Glucose 128 mg/dL (65-115); Iron 59 ug/dL (59-158); Osmolality Calculated 286 mOsm/kg (285-295); Potassium 4.4 mmol/L (3.5-5.1); Sodium 137 mmol/L (136-145); Total Bilirubin 0.3 mg/dL (0.15-1.2); Total Iron Binding Capacity 203 mcg/dl; Total Protein 6.2 g/dL (6.6-8.7); Unsaturated Iron Binding 144 ug/dL (112-347)
[2021-07-01] MEDS: iohexol 300 mg/mL 100 mL Btl IV (10:28)
== END 2021-07-01 08:44 | disposition home or self-care (01) ==
LOC: CT 08:43 → ONCMED 08:52
PROVIDERS: PCP Emergency Medicine Emergency Medical Services; Visit Provider Internal Medicine Hematology & Oncology
DX: C15.5 Malignant neoplasm of lower third of esophagus (principal); K76.89 Other specified diseases of liver; I10 Essential (primary) hypertension; E11.9 Type 2 diabetes mellitus without complications; D62 Acute posthemorrhagic anemia; Z79.1 Long term (current) use of non-steroidal anti-inflammatories (NSAID); Z79.02 Long term (current) use of antithrombotics/antiplatelets; Z79.82 Long term (current) use of aspirin; Z79.899 Other long term (current) drug therapy
CPT/HCPCS: 36591; 71260; 74160; 80053; 82728; 83540; 83550; 85025; Q9967

== ENCOUNTER 2021-07-07 06:36 | Outpatient (CLI) | payer OTHER, SELFPAY ==
--- NOTE | 2021-07-07 17:45 | ONC FU_ITS ---
Dr. Bhagat follow up note Patient: Bernard Alonzo Unit #: [id number]: 1935 Dicatated By: Akiko Bhagat M.D.Date of Visit:Jul 07, 2021 Onc Med Follow-up/Prog Note History of Present Illness: Mr. Alonzo is an 86-year-old gentleman who presented with a history of progressive dysphagia since November 2019 along with a 20+ pound weight loss. He underwent EGD on March 18, 2020 which did show a partially obstructing 5 cm long distal esophageal mass starting at 39 cm from incisors up to 44 cm. An upper EUS revealed that the hypoechoic mass invaded muscularis propria and adventitia consistent with T3 disease coupled with the presence of 2 paraesophageal lymph nodes (not amenable to biopsy). 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 He then underwent CT scan of the chest and abdomen on March 30, 2020. This reported the mass involving the distal esophagus near the gastroesophageal junction causing delayed clearance of barium from the esophagus. There are a few prominent to enlarged mediastinal lymph nodes with 1 of the larger lymph nodes measuring 2.0 x 0.9 cm. There were hepatic and left renal cyst no intra-abdominal lymphadenopathy. It was noted that a pacemaker was present as well. A balloon dilatation was performed and the entire stomach was examined and found to be endoscopically normal. PET/CT imaging from 05/21/2020 revealed hypermetabolic activity in the distal esophagus without neighboring FDG lymph node activity or radiographic concern for metastasis. There was no material FDG activity in the mediastinum. He has a past medical history of coronary artery disease/CT, stenting and had been taking aspirin as well as Plavix. It is noted that his past medical history includes heavy drinking until recently . He also has history of hypertension and type 2 diabetes. His past surgical history includes placement of a pacemaker 3 abdominal surgeries (appendectomy and 2 trauma related surgeries). Foot surgery and venous access device placement per Dr Cano. Mr. Alonzo was seen in consultation by radiation oncology and in medical oncology for further evaluation and recommendations for continuing plan of care. Staging PET scan done on May 21, 2020 showed hypermetabolic metastatic GE junction with SUV of 9.49. No other suspicious focus of increased uptake seen in chest and abdomen.Mr. Alonzo was offered treatment for concurrent chemoradiation as influenced by the CROSS trial. Mr. Garrison began his first chemotherapy treatment on June 02, 2020. He has been treated with carboplatin paclitaxel weekly in combination with daily radiation. Mr. Alonzo was admitted to [facility] on 06/05/2020 with acute nausea vomiting and GI bleeding. He presented to the emergency room with nausea vomiting but had also noticed that he was having increased esophageal pain 2 days prior to his present Tatian to the emergency room. It was noted at that time that his hemoglobin was 7.7. He was felt to have a GI bleeding as well. Mr. Perez stated that he had been taking ibuprofen for pain despite being on aspirin and Plavix for history of coronary artery disease/CT and stenting. He had been started on pantoprazole but admitted that he had not been taking it much due to nausea. Mr. Garrison was admitted and received 2 units of PRBCs and underwent endoscopy. It was felt that the bleeding was most likely coming from esophageal tumor with chronic use of the ibuprofen. He did had elevated lactate but was negative CT scan and was felt the elevated lactate was due to the tumor burden. He also underwent PEG tube placement which was uneventful. His hemoglobin remained stable and he was discharged with PEG tube feedings???1 to 1/2 cans 3 times a day as tolerated. His aspirin and Plavix were placed on hold for at least 2 weeks. His carvedilol was placed on hold due to hypotension. He was discharged on 06/08/2020. He did resume chemotherapy with Carboplatin/paclitaxel on 06/09/2020. He tolerated it well.Completed combined chemoradiation with weekly carboplatin/Taxol on July 16, 2020 Mr Alonzo has seen surgeon for possible post chemo/radiation esophagectomy, as per patient once surgeon noticed PEG tube, immediately he was told that he is not a candidate for esophagectomy. And patient himself was not interested in esophagectomy either. Because of indigestion and painful swallowing, patient was referred to gastroenterology, patient was evaluated by Dr. Cruz in [place] and patient underwent EGD and esophageal dilatation on August 27, 2020, biopsies were obtained which showed mild chronic inflammation no dysplasia or malignancy seen. As per patient after esophageal dilation, he felt much better and start swallowing food without any problem. Follow-up CT PET scan done on October 02, 2020 showed negative for malignancy, radiation therapy inflammatory infiltrate in the medial lower lobes Follow-up CT scan of chest abdomen done on July 01, 2021 showed mild thickening at distal esophagus and GE junction likely due to treatment reactive changes. This is unchanged since prior CT PET scan, no evidence of recurrence of disease. 8 mm nodular opacities right upper lobe is indeterminant and is new since CT PET scan. Prior infiltrates in this area on prior CT chest on January 07, 2021. No mediastinal or hilar lymphadenopathy. A few prominent peribronchial and paratracheal lymph nodes are unchanged. No evidence of metastatic disease in the abdomen. Patient is also being followed by Dr. 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 Cruz on August 02, 2021, denies any hemoptysis or hematemesis, denies any abdominal pain, denies any aspirations, denies any shortness of breath denies any fever chills denies any weight loss, denies any jaundice denies any new bony pains Medications: Cholecalciferol 1 Capsule (of 25 mcg ) Oral daily, Finasteride 1 Tablet (of 5 mg) Oral daily, HYDROcodone-Acetaminophen 1 Tablet (of 7.5-325 mg) Oral b.i.d., Maalox Max Suspension Oral PRN, metFORMIN HCl 0.5 Tablet (of 1000 mg) Oral daily, Pantoprazole Sodium 40 mg (of 40 mg) Pack Oral b.i.d., Simvastatin 0.5 Tablet (of 80 mg) Oral daily Allergies: No Known Allergies. Review of Systems: Review of Systems is not available for this patient. Vital Signs: Performed on Jul 07, 2021 12:39 Height - 67.00 in Weight - 148.8 lbs (HIGH) BSA - 1.78 sq.m BMI - 23.31 Temperature - 96.6 F (LOW) Pulse - 72 /min Respiration - 18 /min BP - 109/63 mm(hg) O2 Sat - 97 % Pain - 2 Fatigue - 7 Performance Status: 0 - Fully active, able to carry on all predisease activities without restrictions. (ECOG) Physical Examination: ENMT - No mouth sores, no thrush, no jaundice, Respiratory - Lungs are clear to auscultation, Cardiovascular - Regular rate and rhythm of heart, Abdomen - Soft, bowel sounds present, Extremities - No visible edema. Lab/Imaging: Most recent lab results are not available for this patient. 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 Hepatic and left renal cysts. Upper EUS done on April 26, 2020 showed presence of large 19 x 11 mm hypoechoic mass involving all 3 layers of esophagus. There was presence of 2 lymph nodes measuring 15 to 16 mm in size and the region surrounding the esophageal mass, due to lymph nodes being present deep to the mass, no FNA was performed. Aorta with celiac takeoff was unremarkable without any celiac lymphadenopathy Staging CT PET scan done on May 21, 2020 showed hypermetabolic mass at the gastroesophageal junction consistent with esophageal carcinoma. No findings to suggest distant or local regional disease Jyk-bqaquzh-ghdfgwwbu diabetes mellitus, on oral hypoglycemic Status post pacemaker Coronary artery disease. Mr. Garrison began concurrent treatment with weekly carboplatin paclitaxel and daily radiation on June 02, 2020. He was admitted to [facility] on June 05, 2020 and discharged on June 08, 2024 acute bleeding due to chronic ibuprofen use in the presence of aspirin and Plavix . The aspirin Plavix and ibuprofen were stopped. He was started on Protonix and received blood transfusion He also had PEG tube placement for nutrition supplementation while he was inpatient. Mr Alonzo resumed chemotherapy on June 02, 2020. And completed with weekly carboplatin/Taxol on chemoradiation on July 16, 2020 Iron deficiency anemia, status post Injectafer 750 mg weekly on February 15 and February 22, 2021 with excellent response, hemoglobin 13.8 g on April 01, 2021 compared to 10 g prior to Injectafer infusion on February 01, 2021 Follow-up CT scan of chest abdomen done on July 01, 2021 showed mild thickening at distal esophagus and GE junction likely due to treatment reactive changes. This is unchanged since prior CT PET scan, no evidence of recurrence of disease. 8 mm nodular opacities right upper lobe is indeterminant and is new since CT PET scan. Prior infiltrates in this area on prior CT chest on January 07, 2021. No mediastinal or hilar lymphadenopathy. A few prominent peribronchial and paratracheal lymph nodes are unchanged. No evidence of metastatic disease in the abdomen. Patient is also being followed by Dr. 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 Plan: Discussed with patient regarding his labs white blood count 5.7 hemoglobin 12.4 g medical 38.4 platelets 206,000 CMP within normal limits iron shows iron saturation 29% ferritin 439 iron 59 TIBC 203 Clinically, patient doing well with no new signs symptoms suggestive of recurrence of disease, his follow-up CT scan of chest abdomen done recently shows no evidence of recurrence of disease his lab work-up is within normal range and his iron deficiency anemia has resolved with parenteral iron, patient return to clinic 3 months with CBC CMP and iron studies and follow-up CT scan of chest with special attention to right upper lobe 8 mm nodule. Signed By: Akiko Bhagat M.D. <<Signature on File>>
== END 2021-07-07 06:37 | disposition home or self-care (01) ==
LOC: ONCMED 06:36
PROVIDERS: PCP Emergency Medicine Emergency Medical Services; Visit Provider Internal Medicine Hematology & Oncology
DX: Z08 Encounter for follow-up examination after completed treatment for malignant neoplasm (principal); Z85.01 Personal history of malignant neoplasm of esophagus; E11.9 Type 2 diabetes mellitus without complications; Z79.84 Long term (current) use of oral hypoglycemic drugs; Z95.0 Presence of cardiac pacemaker; I25.10 Atherosclerotic heart disease of native coronary artery without angina pectoris; D50.9 Iron deficiency anemia, unspecified; Z79.899 Other long term (current) drug therapy
CPT/HCPCS: 99214

== ENCOUNTER 2021-08-11 08:42 | Outpatient (CLI) | payer OTHER, SELFPAY | END 2021-08-11 08:43 | disposition home or self-care (01) | LOC: ONCMED 08:43 | PROVIDERS: PCP Emergency Medicine Emergency Medical Services; Visit Provider Internal Medicine Hematology & Oncology | DX: Z45.2 Encounter for adjustment and management of vascular access device (principal) | CPT/HCPCS: 96523 ==

== ENCOUNTER 2021-09-09 10:08 | Outpatient (CLI) | payer OTHER, SELFPAY | END 2021-09-09 10:09 | disposition home or self-care (01) | LOC: ONCMED 10:11 | PROVIDERS: PCP Emergency Medicine Emergency Medical Services; Visit Provider Internal Medicine Hematology & Oncology | DX: Z45.2 Encounter for adjustment and management of vascular access device (principal) | CPT/HCPCS: 96523 ==

== ENCOUNTER 2021-09-27 12:51 | Outpatient (CLI) | payer OTHER, SELFPAY ==
--- NOTE | 2021-09-27 | CT_ITS ---
WS: [id number] CT CHEST, ABDOMEN, AND PELVIS TECHNIQUE: Contrast-enhanced CT of the chest, abdomen, and pelvis with coronal and sagittal reformatt ed images. CLINICAL INFORMATION: ESOPHAGEAL NEOPLASM COMPARISON: CT July 01, 2021 and PET/CT on 10/02/20. DLP: 2168.[address] scans at [facility] use at least one of these dose optimization techniques: automated e xposure control; mA and/or kV adjustment per patient size (includes targeted exams where dose is matc hed to clinical indication); or iterative reconstruction. CT CHEST: Moderate chronic emphysematous changes. No acute pulmonary infiltrates.Previously described hazy 8mm right middle lobe nodule is unchanged compared to July 01, 2021. Previous described 3 mm nodule in the left fissure is unchanged. No new pulmonary opacities. Stable bronchiectasis right lower lobe. O therwise no new pulmonary nodules. Normal caliber thoracic aorta. Proximal main pulmonary arteries are normal. No mediastinal or hilar l ymphadenopathy. Aortic calcification. Coronary calcification. No axillary lymphadenopathy. Mild thickening involving the distal esophagus unchanged from previous likely due to treatment-relate d changes. No evidence of recurrent or obstructing mass. CT ABDOMEN AND PELVIS: Diffuse fatty infiltration the liver. Normal portal vein and splenic vein. Normal spleen. Fatty atrop hy of the pancreas. Adrenal glands are normal. Cortical scarring right kidney unchanged. Stable small renal cysts. Normal caliber abdominal aorta. Diffuse bladder wall thickening. Small cystocele. Mild prostate enlargement with calcification measuring 4.1 CM. Sigmoid diverticulosis. No evidence of acut e diverticulitis. No abdominal or pelvic lymphadenopathy. No inguinal lymphadenopathy. Hypertrophic changes thoracic spine. Hypertrophic changes lumbar spine. CT/CT chest abd pel w con* IMPRESSION: 1. Previously described 8 mm right middle lobe nodule is unchanged. Recommend 3-6 month follow-up. 2. Stable tiny nodule in the left fissure measuring 3 mm. 3. No new suspicious pulmonary parenchymal opacities. 4. No mediastinal or hilar lymphadenopathy. 5. Mild diffuse thickening involving the distal esophagus likely due to treatm ent-related changes similar to previous. No suspicious lesions. 6. Diffuse fatty infiltration of the liver with multiple stable hepatic cysts. 7. Cortical scarring right kidney. No hydronephrosis in either kidney. 8. Mild diffuse bladder wall thickening likely due to bladder outlet obstructi on. Mild prostate enlargement with calcification. Recommend correlation PSA.
[2021-09-27 14:00] LABS: Blood Urea Nitrogen 19 mg/dL (8-23)
[2021-09-27] MEDS: iohexol 300 mg/mL 100 mL Btl IV (15:16)
[2021-09-27] MEDS: iohexol 300 mg/mL 50 mL Btl PO (15:17)
== END 2021-09-27 12:52 | disposition home or self-care (01) ==
PROVIDERS: PCP Emergency Medicine Emergency Medical Services; Visit Provider Internal Medicine Hematology & Oncology
DX: C15.5 Malignant neoplasm of lower third of esophagus (principal); N40.0 Benign prostatic hyperplasia without lower urinary tract symptoms; K76.0 Fatty (change of) liver, not elsewhere classified; K76.89 Other specified diseases of liver
CPT/HCPCS: 71260; 74177; 82565; 84520; Q9967

== ENCOUNTER 2021-10-07 09:01 | Outpatient (CLI) | payer OTHER, SELFPAY ==
[2021-10-07 10:58] LABS: Basophils # 0.1 10^3/uL (0.0-0.1); Basophils % 0.9 %; Eosinophils # 0.1 10^3/uL (0.0-0.8); Eosinophils % 1.1 %; Hematocrit 40.3 % (42.0-52.0); Hemoglobin 13.1 g/dL (11.7-16.6); Lymphocytes # 0.6 10^3/uL (0.8-4.8); Lymphocytes % 10.1 %; Mean Corpuscular HGB Conc 32.5 g/dL (30.0-36.0); Mean Corpuscular Hemoglobin 33.7 pg (28.0-34.0); Mean Corpuscular Volume 103.6 fl (80-94); Mean Platelet Volume 10.3 fL (7.4-10.4); Monocytes # 0.5 10^3/uL (0.2-0.9); Monocytes % 9.6 %; Neutrophils # 4.22 10^3/uL (1.8-7.7); Neutrophils % 77.9 %; Nucleated Red Blood Cells % 0 %; Platelet Count 191 10^3/cmm (130-400); Red Blood Count 3.89 10^6/uL (4.1-5.3); Red Cell Distribution Width 14.3 % (12.1-15.1); White Blood Count 5.4 10^3/uL (4.0-10.0)
[2021-10-07 11:08] LABS: Alanine Aminotransferase 13 U/L (0-41); Alkaline Phosphatase 109 IU/L (40-130); Blood Urea Nitrogen 17 mg/dL (8-23); Calcium 8.2 mg/dL (8.5-10.5); Carbon Dioxide 21 mmol/L (22-29); Chloride 103 mmol/L (98-107); Ferritin 266 ng/mL (30-400); Globulin 2.2 g/dL (1.3-4.6); Glucose 83 mg/dL (65-115); Iron 71 ug/dL (59-158); Osmolality Calculated 287 mOsm/kg (285-295); Sodium 138 mmol/L (136-145); Total Bilirubin 0.3 mg/dL (0.15-1.2); Total Protein 6.2 g/dL (6.6-8.7)
[2021-10-07 11:12] LABS: Anion Gap 18.4 (5-19); Percent Saturation 29.7 % (20-50); Potassium 4.4 mmol/L (3.5-5.1); Total Iron Binding Capacity 239 mcg/dl; Unsaturated Iron Binding 168 ug/dL (112-347)
[2021-10-07 11:13] LABS: Aspartate Amino Transferase 19 U/L (0-40)
== END 2021-10-07 09:02 | disposition home or self-care (01) ==
LOC: ONCMED 09:03
PROVIDERS: PCP Emergency Medicine Emergency Medical Services; Visit Provider Internal Medicine Hematology & Oncology
DX: C15.5 Malignant neoplasm of lower third of esophagus (principal); I10 Essential (primary) hypertension; E11.9 Type 2 diabetes mellitus without complications; Z79.82 Long term (current) use of aspirin; Z79.02 Long term (current) use of antithrombotics/antiplatelets; Z79.899 Other long term (current) drug therapy; Z95.0 Presence of cardiac pacemaker
CPT/HCPCS: 36591; 80053; 82728; 83540; 83550; 85025

== ENCOUNTER 2021-10-11 06:32 | Outpatient (CLI) | payer OTHER, SELFPAY ==
--- NOTE | 2021-10-11 18:02 | ONC FU_ITS ---
Dr. Bhagat follow up note Patient: Bernard Alonzo Unit #: [id number]: [id number] Dicatated By: Akiko Bhagat M.D.Date of Visit:Oct 11, 2021 Onc Med Follow-up/Prog Note History of Present Illness: Mr. Alonzo is an 86-year-old gentleman who presented with a history of progressive dysphagia since November 2019 along with a 20+ pound weight loss. He underwent EGD on March 18, 2020 which did show a partially obstructing 5 cm long distal esophageal mass starting at 39 cm from incisors up to 44 cm. An upper EUS revealed that the hypoechoic mass invaded muscularis propria and adventitia consistent with T3 disease coupled with the presence of 2 paraesophageal lymph nodes (not amenable to biopsy). 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 He then underwent CT scan of the chest and abdomen on March 30, 2020. This reported the mass involving the distal esophagus near the gastroesophageal junction causing delayed clearance of barium from the esophagus. There are a few prominent to enlarged mediastinal lymph nodes with 1 of the larger lymph nodes measuring 2.0 x 0.9 cm. There were hepatic and left renal cyst no intra-abdominal lymphadenopathy. It was noted that a pacemaker was present as well. A balloon dilatation was performed and the entire stomach was examined and found to be endoscopically normal. PET/CT imaging from 05/21/2020 revealed hypermetabolic activity in the distal esophagus without neighboring FDG lymph node activity or radiographic concern for metastasis. There was no material FDG activity in the mediastinum. He has a past medical history of coronary artery disease/VA, stenting and had been taking aspirin as well as Plavix. It is noted that his past medical history includes heavy drinking until recently . He also has history of hypertension and type 2 diabetes. His past surgical history includes placement of a pacemaker 3 abdominal surgeries (appendectomy and 2 trauma related surgeries). Foot surgery and venous access device placement per Dr Cano. Mr. Alonzo was seen in consultation by radiation oncology and in medical oncology for further evaluation and recommendations for continuing plan of care. Staging PET scan done on May 21, 2020 showed hypermetabolic metastatic GE junction with SUV of 9.49. No other suspicious focus of increased uptake seen in chest and abdomen.Mr. Alonzo was offered treatment for concurrent chemoradiation as influenced by the CROSS trial. Mr. Garrison began his first chemotherapy treatment on June 02, 2020. He has been treated with carboplatin paclitaxel weekly in combination with daily radiation. Mr. Alonzo [place] [facility] [place] with acute nausea vomiting and GI bleeding. He presented to the emergency room with nausea vomiting but had also noticed that he was having increased esophageal pain 2 days prior to his present Tatian to the emergency room. It was noted at that time that his hemoglobin was 7.7. He was felt to have a GI bleeding as well. Mr. Perez stated that he had been taking ibuprofen for pain despite being on aspirin and Plavix for history of coronary artery disease/VA and stenting. He had been started on pantoprazole but admitted that he had not been taking it much due to nausea. Mr. Garrison was admitted and received 2 units of PRBCs and underwent endoscopy. It was felt that the bleeding was most likely coming from esophageal tumor with chronic use of the ibuprofen. He did had elevated lactate but was negative CT scan and was felt the elevated lactate was due to the tumor burden. He also underwent PEG tube placement which was uneventful. His hemoglobin remained stable and he was discharged with PEG tube feedings???1 to 1/2 cans 3 times a day as tolerated. His aspirin and Plavix were placed on hold for at least 2 weeks. His carvedilol was placed on hold due to hypotension. He was discharged on 06/08/2020. He did resume chemotherapy with Carboplatin/paclitaxel on 06/09/2020. He tolerated it well.Completed combined chemoradiation with weekly carboplatin/Taxol on July 16, 2020 Mr Alonzo has seen surgeon for possible post chemo/radiation esophagectomy, as per patient once surgeon noticed PEG tube, immediately he was told that he is not a candidate for esophagectomy. And patient himself was not interested in esophagectomy either. Because of indigestion and painful swallowing, patient was referred to gastroenterology, patient was evaluated by Dr. Cruz in [place] and patient underwent EGD and esophageal dilatation on August 27, 2020, biopsies were obtained which showed mild chronic inflammation no dysplasia or malignancy seen. As per patient after esophageal dilation, he felt much better and start swallowing food without any problem. Follow-up CT PET scan done on October 02, 2020 showed negative for malignancy, radiation therapy inflammatory infiltrate in the medial lower lobes Follow-up CT scan of chest abdomen done on July 01, 2021 showed mild thickening at distal esophagus and GE junction likely due to treatment reactive changes. This is unchanged since prior CT PET scan, no evidence of recurrence of disease. 8 mm nodular opacities right upper lobe is indeterminant and is new since CT PET scan. Prior infiltrates in this area on prior CT chest on January 07, 2021. No mediastinal or hilar lymphadenopathy. A few prominent peribronchial and paratracheal lymph nodes are unchanged. No evidence of metastatic disease in the abdomen. Patient is also being followed by Dr. Cruz in [facility] regarding repeated esophageal dilatation due to distal esophageal treatment related stricture Follow-up CT scan of chest done on September 27, 2021 showed previously described 8 mm right middle lobe nodule is unchanged, stable tiny nodule in left fissure measuring 3 mm. No new suspicious pulmonary parenchymal opacities. No mediastinal or hilar lymphadenopathy. Mild diffuse thickening involving the distal esophagus due to treatment related changes. Diffuse fatty infiltration of liver with multiple stable hepatic cysts. Came for follow-up, denies any specific complaints, no fever chills, no nausea or vomiting, no diarrhea or constipation, mild dysphagia to certain foods, patient said he get esophageal dilatation done every 3 to 4 months,, denies any hemoptysis or hematemesis. Denies any jaundice, denies any nausea or vomiting, denies any aspiration, denies any new bony pains denies any constipation or diarrhea. Appetite is good Medications: Cholecalciferol 1 Capsule (of 25 mcg ) Oral daily, Finasteride 1 Tablet (of 5 mg) Oral daily, HYDROcodone-Acetaminophen 1 Tablet (of 7.5-325 mg) Oral b.i.d., Maalox Max Suspension Oral PRN, metFORMIN HCl 0.5 Tablet (of 1000 mg) Oral daily, Pantoprazole Sodium 40 mg (of 40 mg) Pack Oral b.i.d., Simvastatin 0.5 Tablet (of 80 mg) Oral daily Allergies: No Known Allergies. Review of Systems: Review of Systems is not available for this patient. Vital Signs: Performed on Oct 11, 2021 15:12 Height - 67.00 in Weight - 145.6 lbs (LOW) BSA - 1.77 sq.m BMI - 22.80 Temperature - 98.3 F (LOW) Pulse - 76 /min Respiration - 16 /min BP - 115/68 mm(hg) O2 Sat - 97 % Pain - 0 Fatigue - 5 Performance Status: 0 - Fully active, able to carry on all predisease activities without restrictions. (ECOG) Physical Examination: ENMT - No mouth sores, no thrush, no jaundice, Respiratory - Lungs are clear to auscultation, Cardiovascular - Regular rate and rhythm of heart, Abdomen - Soft, bowel sounds present, Extremities - No visible edema. Lab/Imaging: Most recent lab results are not available for this patient. 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 Hepatic and left renal cysts. Upper EUS done on April 26, 2020 showed presence of large 19 x 11 mm hypoechoic mass involving all 3 layers of esophagus. There was presence of 2 lymph nodes measuring 15 to 16 mm in size and the region surrounding the esophageal mass, due to lymph nodes being present deep to the mass, no FNA was performed. Aorta with celiac takeoff was unremarkable without any celiac lymphadenopathy Staging CT PET scan done on May 21, 2020 showed hypermetabolic mass at the gastroesophageal junction consistent with esophageal carcinoma. No findings to suggest distant or local regional disease [id number] diabetes mellitus, on oral hypoglycemic Status post pacemaker Coronary artery disease. Mr. Garrison began concurrent treatment with weekly carboplatin paclitaxel and daily radiation on June 02, 2020. He was [place] [facility] [place] and discharged on June 08, 2024 acute bleeding due to chronic ibuprofen use in the presence of aspirin and Plavix . The aspirin Plavix and ibuprofen were stopped. He was started on Protonix and received blood transfusion He also had PEG tube placement for nutrition supplementation while he was inpatient. Mr Alonzo resumed chemotherapy on June 02, 2020. And completed with weekly carboplatin/Taxol on chemoradiation on July 16, 2020 Iron deficiency anemia, status post Injectafer 750 mg weekly on February 15 and February 22, 2021 with excellent response, hemoglobin 13.8 g on April 01, 2021 compared to 10 g prior to Injectafer infusion on February 01, 2021 follow-up CT scan of chest done on September 27, 2021 showed previously described 8 mm right middle lobe nodule is unchanged, stable tiny nodule in the left fissure measuring 3 mm. No new suspicious pulmonary parenchymal opacities. No mediastinal or hilar lymphadenopathy. Diffuse fatty infiltration of liver with multiple stable hepatic cysts. Mild diffuse bladder wall thickening likely due to bladder outlet obstruction. Mild prostate enlargement with calcification. Plan: Discussed with patient regarding his labs white blood count 5.4 hemoglobin 13.1 g compared to 12.4 previously hematocrit 40.3 platelets 191,000 CMP within normal limits, ferritin 266 iron saturation 29.7 iron 71 TIBC 239 and follow-up CT scan of chest done on September 27, 2021 showed previously described 8 mm right middle lobe nodule is unchanged, stable tiny nodule in the left fissure measuring 3 mm. No new suspicious pulmonary parenchymal opacities. No mediastinal or hilar lymphadenopathy. Diffuse fatty infiltration of liver with multiple stable hepatic cysts. Mild diffuse bladder wall thickening likely due to bladder outlet obstruction. Mild prostate enlargement with calcification. Clinically, patient doing well with no new signs symptoms suggestive of recurrence of disease, his follow-up CT scan of chest Done on September 27hows stable right middle lobe nodule and left fissure nodule both are subcentimeter and treatment related changes in the distal esophagus, will continue to monitor and his lab work-up done showed CBC CMP within normal range and adequate iron stores, patient denies any urinary signs symptoms, Return to clinic in 6 months with CBC CMP and CT scan of chest Signed By: Akiko Bhagat M.D. <<Signature on File>>
== END 2021-10-11 06:33 | disposition home or self-care (01) ==
LOC: ONCMED 06:33
PROVIDERS: PCP Emergency Medicine Emergency Medical Services; Visit Provider Internal Medicine Hematology & Oncology
DX: R91.8 Other nonspecific abnormal finding of lung field (principal); K22.89 Other specified disease of esophagus; K20.90 Esophagitis, unspecified without bleeding; Z93.1 Gastrostomy status; I25.2 Old myocardial infarction; Z79.01 Long term (current) use of anticoagulants; F10.21 Alcohol dependence, in remission; Z95.0 Presence of cardiac pacemaker; R13.19 Other dysphagia; Z85.01 Personal history of malignant neoplasm of esophagus; E11.9 Type 2 diabetes mellitus without complications; Z79.84 Long term (current) use of oral hypoglycemic drugs; I25.10 Atherosclerotic heart disease of native coronary artery without angina pectoris
CPT/HCPCS: 99214

== ENCOUNTER 2021-11-09 09:35 | Outpatient (CLI) | payer OTHER, SELFPAY | END 2021-11-09 09:36 | disposition home or self-care (01) | PROVIDERS: PCP Emergency Medicine Emergency Medical Services; Visit Provider Internal Medicine Hematology & Oncology | DX: Z45.2 Encounter for adjustment and management of vascular access device (principal) | CPT/HCPCS: 96523 ==

== ENCOUNTER 2021-12-06 13:28 | Outpatient (CLI) | payer OTHER, SELFPAY | END 2021-12-06 13:29 | disposition home or self-care (01) | PROVIDERS: PCP Emergency Medicine Emergency Medical Services; Visit Provider Internal Medicine Hematology & Oncology | DX: Z45.2 Encounter for adjustment and management of vascular access device (principal) | CPT/HCPCS: 96523 ==

== ENCOUNTER 2022-01-05 13:42 | Outpatient (CLI) | payer OTHER, SELFPAY | END 2022-01-05 13:43 | disposition home or self-care (01) | PROVIDERS: PCP Emergency Medicine Emergency Medical Services; Visit Provider Internal Medicine Hematology & Oncology | DX: Z45.2 Encounter for adjustment and management of vascular access device (principal) | CPT/HCPCS: 96523 ==

== ENCOUNTER 2022-02-07 13:32 | Oncology outpatient (recurring) (ONCR) | payer OTHER, SELFPAY ==
[2022-02-07 14:33] VITALS: BP 114/56; PULSE 58; RESP 18; TEMP 36.4; O2SAT 97
== END 2022-02-21 23:59 | disposition home or self-care (01) ==
PROVIDERS: PCP Emergency Medicine Emergency Medical Services; Visit Provider Internal Medicine Hematology & Oncology
DX: Z45.2 Encounter for adjustment and management of vascular access device (principal)
CPT/HCPCS: 96523

== ENCOUNTER 2022-03-07 13:58 | Oncology outpatient (recurring) (ONCR) | payer OTHER, SELFPAY ==
[2022-03-07 14:13] VITALS: BP 112/52; PULSE 77; RESP 16; TEMP 36.1; O2SAT 98
== END 2022-03-23 23:59 | disposition home or self-care (01) ==
PROVIDERS: PCP Emergency Medicine Emergency Medical Services; Visit Provider Internal Medicine Hematology & Oncology
DX: Z45.2 Encounter for adjustment and management of vascular access device (principal)
CPT/HCPCS: 96523

== ENCOUNTER 2022-04-10 13:37 | Outpatient (CLI) | payer OTHER, SELFPAY ==
--- NOTE | 2022-04-10 16:00 | CT_ITS ---
WS: [id number] CT CHEST, ABDOMEN, AND PELVIS TECHNIQUE: Contrast-enhanced CT of the chest, abdomen, and pelvis with coronal and sagittal reformatt ed images. CLINICAL INFORMATION: esophageal neoplasm COMPARISON: CT September 27, 2021 DLP: 1470.[address] scans at [facility] use at least one of these dose optimization techniques: automated e xposure control; mA and/or kV adjustment per patient size (includes targeted exams where dose is matc hed to clinical indication); or iterative reconstruction. CT CHEST: Moderate chronic emphysematous changes. No acute pulmonary infiltrates.Previously described 8mm right middle lobe nodule is progressed compared to September 27, 2021. Today this has a bilobed appearance measuring 15 mm with a more solid appearance today. Previous desc ribed 3 mm nodule in the left fissure is unchanged. Slightly prominent pretracheal lymph node measuri ng 9 mm is unchanged since July 01, 2021. No mediastinal or hilar lymphadenopathy. No new pulmonary opacities. Stable bronchiectasis right lower lobe. Otherwise no new pulmonary nodule s. Normal caliber thoracic aorta. Proximal main pulmonary arteries are normal. Aortic calcification. Coronary calcification. No axillary lymphadenopathy. Mild thickening involving the distal esophagus unchanged from previous likely due to treatment- related changes. No evidence of recurrent or obstructing mass. CT ABDOMEN AND PELVIS: Diffuse fatty infiltration the liver. Normal portal vein and splenic vein. Normal spleen. Fatty atrop hy of the pancreas. Adrenal glands are normal. Cortical scarring right kidney unchanged. Stable small renal cysts. Diffuse bladder wall thickening. Bladder cystocele. Mild prostate enlargement with rhonda cification measuring 4.1 CM. Normal caliber abdominal aorta. Sigmoid diverticulosis. No evidence of acute diverticulitis. No abdom inal or pelvic lymphadenopathy. No inguinal lymphadenopathy. Hypertrophic changes thoracic spine. Hypertrophic changes lumbar spine. CT/CT chest abd pel w con* IMPRESSION: 1. Previously described RIGHT middle lobe nodule has a solid appearance today and is slightly progressed with a bilobed appearance measuring 12 mm compared t o 8 mm previous. Consider further evaluation with PET/CT. 2. Tiny nodule measuring 3 mm on the LEFT fissure is stable. 3. No mediastinal or hilar lymphadenopathy. 4. Stable thickening involving the distal esophagus likely due to medullary ch anges unchanged. 5. Alteration liver with stable hepatic cysts. 6. Cortical scarring RIGHT kidney is unchanged. 7. Prostate enlargement calcification in bladder outlet obstruction is stable. Recommend correlation PSA.
[2022-04-10] MEDS: barium sulfate 450 mL Oral Susp PO (16:03)
[2022-04-10 16:07] LABS: Blood Urea Nitrogen 25 mg/dL (8-23)
== END 2022-04-10 13:38 | disposition home or self-care (01) ==
LOC: RAD 13:37
PROVIDERS: PCP Emergency Medicine Emergency Medical Services; Visit Provider Internal Medicine Hematology & Oncology
DX: C15.5 Malignant neoplasm of lower third of esophagus (principal); R91.1 Solitary pulmonary nodule; N40.0 Benign prostatic hyperplasia without lower urinary tract symptoms
CPT/HCPCS: 71260; 74177; 82565; 84520

== ENCOUNTER 2022-04-17 07:45 | Oncology outpatient (recurring) (ONCR) | payer OTHER, SELFPAY ==
[2022-04-11 15:55] LABS: Basophils % 0.6 %; Eosinophils % 0.8 %; Hematocrit 39.2 % (42.0-52.0); Hemoglobin 12.7 g/dL (11.7-16.6); Lymphocytes # 0.6 10^3/uL (0.8-4.8); Lymphocytes % 11.5 %; Mean Corpuscular HGB Conc 32.4 g/dL (30.0-36.0); Mean Corpuscular Hemoglobin 33.9 pg (28.0-34.0); Mean Corpuscular Volume 104.5 fl (80-94); Mean Platelet Volume 10.4 fL (7.4-10.4); Monocytes # 0.5 10^3/uL (0.2-0.9); Monocytes % 10.1 %; Neutrophils # 3.86 10^3/uL (1.8-7.7); Neutrophils % 76.8 %; Nucleated Red Blood Cells % 0 %; Platelet Count 178 10^3/cmm (130-400); Red Blood Count 3.75 10^6/uL (4.1-5.3); Red Cell Distribution Width 13.7 % (12.1-15.1)
[2022-04-11 16:26] LABS: Alanine Aminotransferase 17 U/L (0-41); Albumin Level 4.1 g/dL (3.5-5.2); Alkaline Phosphatase 139 IU/L (40-130); Anion Gap 13.4 (5-19); Aspartate Amino Transferase 19 U/L (0-40); Blood Urea Nitrogen 18 mg/dL (8-23); Calcium 8.8 mg/dL (8.5-10.5); Carbon Dioxide 28 mmol/L (22-29); Chloride 97 mmol/L (98-107); Glucose 140 mg/dL (65-115); Osmolality Calculated 282 mOsm/kg (285-295); Potassium 4.4 mmol/L (3.5-5.1); Sodium 134 mmol/L (136-145); Total Bilirubin 0.3 mg/dL (0.15-1.2); Total Protein 6.1 g/dL (6.6-8.7)
== END 2022-04-23 23:59 | disposition home or self-care (01) ==
PROVIDERS: PCP Emergency Medicine Emergency Medical Services; Visit Provider Internal Medicine Hematology & Oncology
DX: C15.5 Malignant neoplasm of lower third of esophagus (principal); C77.8 Secondary and unspecified malignant neoplasm of lymph nodes of multiple regions; R13.14 Dysphagia, pharyngoesophageal phase; R63.4 Abnormal weight loss; Z68.23 Body mass index [BMI] 23.0-23.9, adult; K30 Functional dyspepsia; K76.0 Fatty (change of) liver, not elsewhere classified; Z79.899 Other long term (current) drug therapy; Z92.21 Personal history of antineoplastic chemotherapy; Z92.3 Personal history of irradiation
CPT/HCPCS: 36591; 80053; 85025; 99215

== ENCOUNTER 2022-05-08 15:05 | Emergency (ER) | payer OTHER, SELFPAY ==
[2022-05-08] VITALS (17 sets, daily range): BP systolic 104–140; BP diastolic 57–83; PULSE 72–76; RESP 14–22; TEMP 36.6–36.8; O2SAT 96–100; BMI 21.9
--- NOTE | 2022-05-08 15:19 | W.ED.GENADLT ---
HPI - General Adult General: Chief complaint: Nausea/Vomiting/Diarrhea Stated complaint: throwing up blood Time Seen by Provider: 05/08/22 15:16 History of Present Illness: Patient is an 87-year-old male with a history of CAD on Plavix and aspirin presenting to the emergency room for evaluation of acute onset of hematemesis for the last 30 minutes. Patient tells me that he was at home sitting outside and started vomiting blood. Patient has a history of distal esophageal cancer. Patient has no prior history of varices or peptic ulcer bleed. Patient denies any excessive use of NSAIDs or aspirin recently. Patient denies any melena hematochezia. Patient not on any anticoagulation. No history of cirrhosis. Onset: 30 minutes ago Duration:30 minutes Location:home Severity:moderate Associated symptoms: Reports vomiting (+hematemesis); Deny chest pain, dyspnea, nausea, rash or palpitations Review of Systems Const: Denies: fever(s) or chills Eyes: Denies: change in vision ENMT: Denies: mouth pain Card: Denies: chest pain or palpitations Resp: Denies: dyspnea or non-productive cough GI: Reports: vomiting (+hematemesis); Denies: abdominal pain, nausea or diarrhea : Denies: dysuria Musc: Denies: extremity pain Skin/Breast: Denies: rash or new lesions Neuro: Denies: weakness in extremities Psych: Reports: other (Normal mood) Tate/Lymph: Denies: easy bruising PFS ED PFSH: Medical History Acute and chronic respiratory failure with hypoxia Anemia Atrial flutter BPH (benign prostatic hyperplasia) CAD (coronary artery disease) Chest pain Coronary artery disease Diabetes mellitus Diverticulosis Elevated d-dimer PE ruled out Elevated troponin Esophageal cancer GERD (gastroesophageal reflux disease) Heart failure Currently compensated Hyperkalemia Hyperlipidemia Hypertension Left upper extremity swelling No DVT Leukocytosis Peripheral arterial disease Pneumonia Surgical History H/O bilateral inguinal hernia repair H/O exploratory laparotomy I swallowed a safety pin when I was a kid and they had to open me up to get it out History of foot surgery R ankle fracture History of incisional hernia repair x 2 History of permanent cardiac pacemaker placement PEG (percutaneous endoscopic gastrostomy) status Port-A-Cath in place Right subclavian S/P appendectomy Status post coronary artery stent placement x 1 2007 Status post placement of cardiac pacemaker Family History Other CAD (coronary artery disease) Cancer Diabetes Hyperlipidemia Denies family history of Clotting disorder Dementia Psychiatric illness Chronic kidney disease (CKD) Suicide Anesthesia complication Bleeding disorder Lung disease Hypertension Stroke Social History Smoking and tobacco status: former smoker Quit status (tobacco): has quit using tobacco Former quit date comment: 1979 Alcohol intake: former Former alcohol use details: Quit in September. Formerly heavy drinker Lives independently: Yes Household members: spouse Marital status: Physical Exam Const: COMMON NORMALS: alert HENMT: COMMON NORMALS: atraumatic HEAD & SCALP: atraumatic MOUTH: moist mucous membranes not abnormal OTHER: +blood in the mouth Eye: COMMON NORMALS: EOMs intact bilaterally and conjunctivae normal CONJUNCTIVA: Yes conjunctivae normal Neck/C-Spine: COMMON NORMALS: full ROM and supple Resp: COMMON NORMALS: normal respiratory effort and clear to auscultation bilaterally AUSCULTATION: clear to auscultation bilaterally Cardio: COMMON NORMALS: regular rate RATE: regular rate GI: COMMON NORMALS: Soft to palpation and non-tender PALPATION: Yes Soft to palpation Extremity: COMMON NORMALS: full ROM Neuro: SENSORIUM/ORIENTATION: Yes alert MOTOR EXAM: No Abnormal motor strength present and Other motor observations present (no focal motor deficits) Psych: COMMON NORMALS: speech normal SPEECH: Yes normal speech MOOD & AFFECT: Yes euthymic mood Course Vital Signs: Vital signs: Vital Signs Temperature 98.1 F 05/08/22 19:15 Pulse Rate 75 05/08/22 19:15 Respiratory Rate 19 H 05/08/22 19:15 Blood Pressure 113/68 05/08/22 19:15 Pulse Oximetry 98 05/08/22 19:15 Oxygen Delivery Me thod 05/08/22 15:17 [facility] - General Adult Medical Decision Making 87-year-old male with history of distal esophageal lesion not currently on chemotherapy presenting to emergency room with concerns of acute hematemesis for the last 30 to 40 minutes. On exam, patient is hemodynamically stable protecting his airway. Patient is noted to have multiple spit ups of clots and blood. Patient is on Plavix and aspirin. He received TXA and aminocaproic acid. Hemoglobin of 13. Patient received Protonix. No prior history of varices or peptic ulcer bleed. Received 2 units of blood while observed the emergency room. Patient vomited about 900 cc of bloody content. I discussed case with Dr. Liang who recommended transfer for definitive management. Case was discussed with Dr. Andersen who agreed with the transfer to [place] for GI and ICU. Disposition: Transfer to outside hospital Lab Data : 05/08/22 15:15 05/08/22 15:15 Radiology Impressions Chest X-Ray 05/08/22 15:24 IMPRESSION: 1. Areas of chronic plaque atelectasis in the lung bases. No acute infiltrates noted. 2. Cardiac enlargement unchanged. 3. Additional nonacute findings as detailed above. Laboratory Results WBC 5.6 10^3/uL (4.0-10.0) 05/08/22 15:15 RBC 3.89 10^6/uL (4.1-5.3) L 05/08/22 15:15 Hgb 13.0 g/dL (11.7-16.6) 05/08/22 15:15 Hct 41.2 % (42.0-52.0) L 05/08/22 15:15 MCV 105.9 fl (80-94) H 05/08/22 15:15 MCH 33.4 pg (28.0-34.0) 05/08/22 15:15 MCHC 31.6 g/dL (30.0-36.0) 05/08/22 15:15 RDW 14.0 % (12.1-15.1) 05/08/22 15:15 Plt Count 217 10^3/cmm (130-400) 05/08/22 15:15 MPV 10.0 fL (7.4-10.4) 05/08/22 15:15 Neut % (Auto) 80.0 % 05/08/22 15:15 Lymph % (Auto) 10.5 % 05/08/22 15:15 Coffee % (Auto) 8.3 % 05/08/22 15:15 Eos % (Auto) 0.5 % 05/08/22 15:15 Baso % (Auto) 0.5 % 05/08/22 15:15 Neut # (Auto) 4.50 10^3/uL (1.8-7.7) 05/08/22 15:15 Lymph # (Auto) 0.6 10^3/uL (0.8-4.8) L 05/08/22 15:15 Coffee # (Auto) 0.5 10^3/uL (0.2-0.9) 05/08/22 15:15 Eos # (Auto) 0.0 10^3/uL (0.0-0.8) 05/08/22 15:15 Baso # (Auto) 0.0 10^3/uL (0.0-0.1) 05/08/22 15:15 Nucleated RBC % (auto) 0 % 05/08/22 15:15 Nucleated RBCs # 0.0 /100WBC 05/08/22 15:15 PT 13.40 SECONDS (12.1-14.9) 05/08/22 15:15 INR 0.99 (0.8-1.2) 05/08/22 15:15 APTT 27.8 SECONDS (23.9-36.7) 05/08/22 15:15 Sodium 139 mmol/L (136-145) 05/08/22 15:15 Potassium 4.4 mmol/L (3.5-5.1) 05/08/22 15:15 Chloride 99 mmol/L (98-107) 05/08/22 15:15 Carbon Dioxide 26 mmol/L (22-29) 05/08/22 15:15 Anion Gap 18.4 (5-19) 05/08/22 15:15 BUN 23 mg/dL (8-23) 05/08/22 15:15 Creatinine 0.7 mg/dL (0.7-1.2) 05/08/22 15:15 GFR Calculation Not Reportable 05/08/22 15:15 Glucose 147 mg/dL (65-115) H 05/08/22 15:15 Calculated Osmolality 294 mOsm/kg (285-295) 05/08/22 15:15 Calcium 9.2 mg/dL (8.5-10.5) 05/08/22 15:15 Total Bilirubin 0.3 mg/dL (0.15-1.2) 05/08/22 15:15 AST 21 U/L (0-40) 05/08/22 15:15 ALT 19 U/L (0-41) 05/08/22 15:15 Alkaline Phosphatase 144 U/L (40-130) H 05/08/22 15:15 Total Protein 6.7 g/dL (6.6-8.7) 05/08/22 15:15 Albumin 4.1 g/dL (3.5-5.2) 05/08/22 15:15 Globulin 2.6 g/dL (1.3-4.6) 05/08/22 15:15 Lipase 21 U/L (13-60) 05/08/22 15:15 SARS-CoV-2 Ag (Rapid) Positive (Negative) H 05/08/22 16:50 Blood Type O Positive 05/08/22 15:35 Rho(D) Type Positive 05/08/22 15:35 Antibody Screen Negative 05/08/22 15:35 Crossmatch See Detail 05/08/22 15:35 Imaging Data Other Imaging: Radiologist's impression: [id number] [id number] XRay Report Signed Patient: Bernard Alonzo Unit #: [id number] : 1935 Age/Sex: 87 / M ADM Date: 05/08/22 Loc: ER Room/Bed: Attending Dr: Ordering Provider/Ordering MD: Del Cervantes MD Date of Service: 05/08/22 Procedure(s): XR chest 1V portable [id number] Accession Number(s): [id number] Report Number: [id number] WS: [id number] Exam: XR chest 1V portable [id number] Date/Time of Exam: 05/08/2022 3:24 PM Reason For Exam: vomiting blood Comparison 01/07/2021. Areas of plaque atelectasis in the bilateral lung bases. The lungs are fully inflated. Moderate cardiac enlargement unchanged. No pneumothorax or pleural effusion. A right-sided port ends in the lower one third of the SVC. An ICD superimposes the left chest. Fusion hardware in the lower cervical spine. XR/XR chest 1V portable [id number] IMPRESSION: 1. Areas of chronic plaque atelectasis in the lung bases. No acute infiltrates noted. 2. Cardiac enlargement unchanged. 3. Additional nonacute findings as detailed above. ? Dictated By: Bruce Garcia DO Signed By: Bruce Garcia DO Signed Date/Time: 05/08/221547 DD/ 46 Critical Care Time Critical Care Time: Critical Care Time: Yes Total Critical Care Time: 35 Attestation: The high probability of a clinically significant, sudden or life threatening deterioration of the patient's GI system(s) required my full and direct attention, intervention and personal management. The critical care time is as shown. This time is in addition to time spent performing any reported procedures but includes the following: [x] Data and vital sign review and interpretation [x] Patient assessment, examination and intervention [x] Documentation [x] Medication orders and management Discharge Plan Discharge Patient Disposition: Transfer to ED Clinical Impression: Hematemesis Condition: Stable Prescriptions: No Action furosemide 20 mg tablet 20 mg PO QAM aspirin [Adult Aspirin Regimen] 81 mg tablet,delayed release (DR/EC) 81 mg PO BEDTIME simvastatin 80 mg Tablet 40 mg PO BEDTIME hydrocodone-acetaminophen 7.5-325 mg Tablet 1 tab PO Q6H PRN (Reason: Pain) metformin 1,000 mg Tablet 500 mg PO QAM clopidogrel [Plavix] 75 mg Tablet 75 mg PO QAM Hold Instructions: Resume on 05/22/20. finasteride 5 mg Tablet 5 mg PO QAM cholecalciferol (vitamin D3) [Vitamin D3] 25 mcg (1,000 unit) Capsule 25 mcg PO DAILY Flomax 0.4 mg Capsule 0.4 mg PO QPM nitroglycerin [Nitrostat] 0.4 mg Tablet, Sublingual 0.4 mg SUBLINGUAL Q5M PRN (Reason: Chest Pain) Rx Instructions: do not exceed 3 doses per episode lisinopril 5 mg Tablet 2.5 mg PO QAM verapamil 120 mg tablet 120 mg PO QAM Protonix 40 mg Tablet,Delayed Release (Dr/Ec) 40 mg PO BID Referrals: Tray Mcclellan DO [Primary Care Provider] - Coding Level of Care Code ED Saw Filer for Chg Fwd Exam Comprehensive
--- NOTE | 2022-05-08 15:24 | ECG_ITS ---
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 Measurements Intervals [place] Rate: 71 P: 250 MO: 247 QRS: 44 QRSD: 114 T: 154 QT: 511 QTc: 558 Interpretive Statements ECTOPIC ATRIAL RHYTHM WITH FIRST DEGREE AV BLOCK MODERATE INTRAVENTRICULAR CONDUCTION DELAY [105+ ms QRS DURATION, 80+ ms Q/S IN V1/V2, NO Q AND 60+ ms R IN I/aVL/V5/V6] MODERATE T-WAVE ABNORMALITY, CONSIDER INFERIOR ISCHEMIA [-0.1+ mV T WAVE IN II/aVF] Compared to ECG 06/05/2020 09:49:28 Ectopic atrial rhythm now present First degree AV block now present Myocardial infarct finding no longer present T-wave abnormality still present Possible ischemia still present Electronically Signed On 05-08-2022 17:35:10 CDT by Harish Rasheed M.D. [id number]
--- NOTE | 2022-05-08 15:24 | XR_ITS ---
WS: [id number] Exam: XR chest 1V portable [id number] Date/Time of Exam: 05/08/2022 3:24 PM Reason For Exam: vomiting blood Comparison 01/07/2021. Areas of plaque atelectasis in the bilateral lung bases. The lungs are fully inflated. Moderate cardi ac enlargement unchanged. No pneumothorax or pleural effusion. A right-sided port ends in the lower o ne third of the SVC. An ICD superimposes the left chest. Fusion hardware in the lower cervical spine. XR/XR chest 1V portable [id number] IMPRESSION: 1. Areas of chronic plaque atelectasis in the lung bases. No acute infiltrates noted. 2. Cardiac enlargement unchanged. 3. Additional nonacute findings as detailed above.
[2022-05-08 15:35] LABS: Basophils % 0.5 %; Eosinophils % 0.5 %; Hematocrit 41.2 % (42.0-52.0); Lymphocytes # 0.6 10^3/uL (0.8-4.8); Lymphocytes % 10.5 %; Mean Corpuscular HGB Conc 31.6 g/dL (30.0-36.0); Mean Corpuscular Hemoglobin 33.4 pg (28.0-34.0); Mean Corpuscular Volume 105.9 fl (80-94); Monocytes # 0.5 10^3/uL (0.2-0.9); Monocytes % 8.3 %; Nucleated Red Blood Cells % 0 %; Platelet Count 217 10^3/cmm (130-400); Red Blood Count 3.89 10^6/uL (4.1-5.3); White Blood Count 5.6 10^3/uL (4.0-10.0)
[2022-05-08] MEDS: pantoprazole 40 mg SDV 80 MG IVP (15:39)
[2022-05-08 15:47] LABS: INR 0.99 (0.8-1.2)
[2022-05-08 15:48] LABS: Partial Thromboplastin Time 27.8 SECONDS (23.9-36.7)
[2022-05-08 15:55] LABS: Alanine Aminotransferase 19 U/L (0-41); Albumin Level 4.1 g/dL (3.5-5.2); Alkaline Phosphatase 144 U/L (40-130); Anion Gap 18.4 (5-19); Aspartate Amino Transferase 21 U/L (0-40); Blood Urea Nitrogen 23 mg/dL (8-23); Calcium 9.2 mg/dL (8.5-10.5); Carbon Dioxide 26 mmol/L (22-29); Chloride 99 mmol/L (98-107); Globulin 2.6 g/dL (1.3-4.6); Glucose 147 mg/dL (65-115); Lipase 21 U/L (13-60); Osmolality Calculated 294 mOsm/kg (285-295); Potassium 4.4 mmol/L (3.5-5.1); Sodium 139 mmol/L (136-145); Total Bilirubin 0.3 mg/dL (0.15-1.2); Total Protein 6.7 g/dL (6.6-8.7)
--- NOTE | 2022-05-08 16:06 | PC.NURSE ---
INFORMED DR. EM WHILE AT BEDSIDE OF THE APPROX BLOOD LOSS OF 500ML AND THE MEASURED LOSS 300ML. HE VERBALIZED HE WOULD PLACE ORDERS TO FOLLOW.
[2022-05-08 17:32] LABS: SARS Covid-2 Antigen Positive (Negative)
[2022-05-08] MEDS: morphine 4 mg/mL SDV 1 mL IVP ×2 (17:36→18:50)
[2022-05-08] MEDS: sodium chloride 0.9% 100 ML IV (17:42)
--- NOTE | 2022-05-08 17:57 | PC.NURSE ---
UPDATED DR. EM ON PT CONDITION AND 500 ML OF BLOOD OUT IN SUCTION CANISTER. HE VERBALIZED UNDERSTANDING NO FURTHER ORDERS.
--- NOTE | 2022-05-08 18:57 | PC.NURSE ---
REPORT GIVEN TO MONTEZ RIOS ASSUMED CARE.
--- NOTE | 2022-05-08 18:58 | PC.NURSE ---
assumed care of patient at this time, 1 unit prbc infusing at 150 ml/hr to left piv, patient using yaunker to suction blood from mouth himself, tolerating activity well. total of 875ml blood noted in suction canister at this time. son at bedside who denies needs, patient denies needs or pain, reports malaise and fatigue. vss at this time in 3:1 atrial flutter that is base line.
--- NOTE | 2022-05-08 19:00 | PC.NURSE ---
1st unit blood infusing, patient vss, denies needs at this time. abd nondistended. son at bedside. awaiting air evac arrival.
--- NOTE | 2022-05-08 19:20 | PC.NURSE ---
bedside report given to air evac team, patient taken from ed at this time.
== END 2022-05-08 21:00 ==
PROVIDERS: Emergency Provider Emergency Medicine; PCP Emergency Medicine Emergency Medical Services
DX: K92.0 Hematemesis (principal); U07.1 COVID-19; Z79.84 Long term (current) use of oral hypoglycemic drugs; Z79.02 Long term (current) use of antithrombotics/antiplatelets; Z79.82 Long term (current) use of aspirin; Z87.891 Personal history of nicotine dependence; I25.10 Atherosclerotic heart disease of native coronary artery without angina pectoris; E11.9 Type 2 diabetes mellitus without complications; Z85.01 Personal history of malignant neoplasm of esophagus; E78.5 Hyperlipidemia, unspecified; I10 Essential (primary) hypertension; Z95.0 Presence of cardiac pacemaker
CPT/HCPCS: 36430; 71045; 80053; 83690; 85025; 85610; 85730; 86850; 86900; 86920; 87426; 93005; 96365; 96367; 96375; 96376; 99285; C9113; J2270; J3490; J7050; P9016

== ENCOUNTER → 2022-05-16 11:05 | Outpatient (BNVA) | payer OTHER, SELFPAY | PROVIDERS: PCP Emergency Medicine Emergency Medical Services; Visit Provider Internal Medicine Cardiovascular Disease | DX: C15.5 Malignant neoplasm of lower third of esophagus (principal); I73.9 Peripheral vascular disease, unspecified; I25.10 Atherosclerotic heart disease of native coronary artery without angina pectoris; K92.0 Hematemesis; K92.2 Gastrointestinal hemorrhage, unspecified; E11.9 Type 2 diabetes mellitus without complications; I10 Essential (primary) hypertension; Z79.84 Long term (current) use of oral hypoglycemic drugs; Z87.891 Personal history of nicotine dependence | CPT/HCPCS: 99214 ==

== ENCOUNTER 2022-05-23 08:00 | Oncology outpatient (recurring) (ONCR) | payer OTHER, SELFPAY ==
[2022-05-23 08:30] LABS: Basophils % 0.3 %; Eosinophils # 0.1 10^3/uL (0.0-0.8); Eosinophils % 1.8 %; Hematocrit 34.8 % (42.0-52.0); Hemoglobin 11.1 g/dL (11.7-16.6); Lymphocytes # 0.6 10^3/uL (0.8-4.8); Lymphocytes % 9.7 %; Mean Corpuscular HGB Conc 31.9 g/dL (30.0-36.0); Mean Corpuscular Hemoglobin 32.9 pg (28.0-34.0); Mean Corpuscular Volume 103.3 fl (80-94); Monocytes # 0.5 10^3/uL (0.2-0.9); Monocytes % 8.4 %; Neutrophils # 4.91 10^3/uL (1.8-7.7); Neutrophils % 79.5 %; Nucleated Red Blood Cells % 0 %; Platelet Count 255 10^3/cmm (130-400); Red Blood Count 3.37 10^6/uL (4.1-5.3); Red Cell Distribution Width 15.2 % (12.1-15.1); White Blood Count 6.2 10^3/uL (4.0-10.0)
[2022-05-23 08:57] LABS: Alanine Aminotransferase 15 U/L (0-41); Albumin Level 3.8 g/dL (3.5-5.2); Alkaline Phosphatase 126 U/L (40-130); Anion Gap 14.7 (5-19); Aspartate Amino Transferase 28 U/L (0-40); Blood Urea Nitrogen 18 mg/dL (8-23); Calcium 8.8 mg/dL (8.5-10.5); Carbon Dioxide 26 mmol/L (22-29); Chloride 102 mmol/L (98-107); Globulin 2.7 g/dL (1.3-4.6); Glucose 115 mg/dL (65-115); Osmolality Calculated 289 mOsm/kg (285-295); Potassium 4.7 mmol/L (3.5-5.1); Sodium 138 mmol/L (136-145); Total Bilirubin 0.6 mg/dL (0.15-1.2); Total Protein 6.5 g/dL (6.6-8.7)
== END 2022-05-24 23:59 | disposition home or self-care (01) ==
PROVIDERS: PCP Emergency Medicine Emergency Medical Services; Visit Provider Internal Medicine Hematology & Oncology
DX: C15.5 Malignant neoplasm of lower third of esophagus (principal); Z87.891 Personal history of nicotine dependence; Z79.899 Other long term (current) drug therapy; R13.10 Dysphagia, unspecified; R91.1 Solitary pulmonary nodule
CPT/HCPCS: 36591; 80053; 85025; 96523; 99214

== ENCOUNTER → 2022-06-07 07:59 | Outpatient (BNVA) | payer OTHER, SELFPAY | PROVIDERS: PCP Emergency Medicine Emergency Medical Services; Visit Provider Nurse Practitioner | DX: C15.5 Malignant neoplasm of lower third of esophagus (principal) | CPT/HCPCS: 99215 ==

== ENCOUNTER 2022-06-23 10:30 | Oncology outpatient (recurring) (ONCR) | payer OTHER, SELFPAY ==
[2022-06-07 08:32] LABS: Basophils % 0.4 %; Eosinophils # 0.1 10^3/uL (0.0-0.8); Eosinophils % 1.6 %; Hematocrit 37.7 % (42.0-52.0); Lymphocytes # 0.5 10^3/uL (0.8-4.8); Lymphocytes % 8.1 %; Mean Corpuscular HGB Conc 31.8 g/dL (30.0-36.0); Mean Corpuscular Hemoglobin 32.8 pg (28.0-34.0); Mean Platelet Volume 10.1 fL (7.4-10.4); Monocytes # 0.6 10^3/uL (0.2-0.9); Monocytes % 10.4 %; Neutrophils # 4.49 10^3/uL (1.8-7.7); Neutrophils % 79.3 %; Nucleated Red Blood Cells % 0 %; Platelet Count 193 10^3/cmm (130-400); Red Blood Count 3.66 10^6/uL (4.1-5.3); Red Cell Distribution Width 15.1 % (12.1-15.1); White Blood Count 5.7 10^3/uL (4.0-10.0)
[2022-06-07 08:51] LABS: Alanine Aminotransferase 16 U/L (0-41); Alkaline Phosphatase 133 U/L (40-130); Aspartate Amino Transferase 18 U/L (0-40); Blood Urea Nitrogen 17 mg/dL (8-23); Carbon Dioxide 24 mmol/L (22-29); Chloride 99 mmol/L (98-107); Globulin 2.4 g/dL (1.3-4.6); Glucose 153 mg/dL (65-115); Osmolality Calculated 287 mOsm/kg (285-295); Sodium 136 mmol/L (136-145); Total Bilirubin 0.6 mg/dL (0.15-1.2); Total Protein 6.4 g/dL (6.6-8.7)
[2022-06-07] MEDS: sodium chloride 0.9% 250 ML 75 ML IV (11:07)
[2022-06-07] MEDS: palonosetron 0.25 mg/5 mL SDV IVP (11:07)
[2022-06-07] MEDS: nivolumab 240 MG in sodium chloride 0.9% 250 ML 548 MG IV (11:41)
[2022-06-07] MEDS: LEUCOVORIN IV (12:22)
[2022-06-07] MEDS: DEXTROSE 5% IV (12:22)
[2022-06-07] MEDS: dextrose 5% 250 ML 75 ML IV (12:26)
[2022-06-07] MEDS: fluorouraciL 2,900 MG, elastomeric pump 1 PUMP in sodium chloride 0.9% (100 ml) 34 ML IV (16:00)
[2022-06-07 16:07] VITALS: BP 119/80; PULSE 51; RESP 16; TEMP 36.1; O2SAT 99
[2022-06-08 09:04] LABS: Thyroid Stimulating Hormone 1.88 uIU/mL (0.27-4.20)
[2022-06-21 08:19] LABS: Basophils % 0.6 %; Eosinophils # 0.1 10^3/uL (0.0-0.8); Eosinophils % 2.1 %; Hematocrit 37.4 % (42.0-52.0); Lymphocytes # 0.4 10^3/uL (0.8-4.8); Lymphocytes % 8.2 %; Mean Corpuscular HGB Conc 32.1 g/dL (30.0-36.0); Mean Corpuscular Volume 102.7 fl (80-94); Mean Platelet Volume 9.6 fL (7.4-10.4); Monocytes # 0.6 10^3/uL (0.2-0.9); Monocytes % 11.5 %; Neutrophils # 3.97 10^3/uL (1.8-7.7); Neutrophils % 77.2 %; Nucleated Red Blood Cells % 0 %; Platelet Count 203 10^3/cmm (130-400); Red Blood Count 3.64 10^6/uL (4.1-5.3); White Blood Count 5.1 10^3/uL (4.0-10.0)
[2022-06-21 09:02] LABS: Alanine Aminotransferase 17 U/L (0-41); Albumin Level 3.9 g/dL (3.5-5.2); Alkaline Phosphatase 130 U/L (40-130); Anion Gap 14.1 (5-19); Aspartate Amino Transferase 22 U/L (0-40); Blood Urea Nitrogen 17 mg/dL (8-23); Calcium 9.2 mg/dL (8.5-10.5); Carbon Dioxide 28 mmol/L (22-29); Chloride 95 mmol/L (98-107); Globulin 2.6 g/dL (1.3-4.6); Glucose 136 mg/dL (65-115); Osmolality Calculated 280 mOsm/kg (285-295); Potassium 4.1 mmol/L (3.5-5.1); Sodium 133 mmol/L (136-145); Thyroid Stimulating Hormone 1.64 uIU/mL (0.27-4.20); Total Bilirubin 0.5 mg/dL (0.15-1.2); Total Protein 6.5 g/dL (6.6-8.7)
[2022-06-21] MEDS: sodium chloride 0.9% 250 ML 100 ML IV (10:01)
[2022-06-21] MEDS: palonosetron 0.25 mg/5 mL SDV IVP (10:04)
[2022-06-21] MEDS: nivolumab 240 MG in sodium chloride 0.9% 250 ML 548 MG IV (10:23)
[2022-06-21] MEDS: dextrose 5% 250 ML 100 ML IV (11:04)
[2022-06-21] MEDS: DEXTROSE 5% IV (11:06)
[2022-06-21] MEDS: LEUCOVORIN IV (11:06)
[2022-06-21] MEDS: fluorouraciL 2,900 MG, elastomeric pump 1 PUMP in sodium chloride 0.9% (100 ml) 34 ML IV (14:28)
[2022-06-21 14:34] VITALS: BP 118/53; PULSE 77; TEMP 36; O2SAT 99
== END 2022-06-23 23:59 | disposition home or self-care (01) ==
PROVIDERS: Nurse Practitioner; PCP Emergency Medicine Emergency Medical Services; Visit Provider Internal Medicine Hematology & Oncology
DX: Z45.2 Encounter for adjustment and management of vascular access device (principal); Z53.9 Procedure and treatment not carried out, unspecified reason
CPT/HCPCS: 80053; 84443; 85025; 96367; 96368; 96375; 96413; 96415; 96416; 96417; 96523; 99214; 99215; J0640; J1100; J2469; J7050; J9190; J9263; J9299

== ENCOUNTER → 2022-06-28 12:42 | Outpatient (BNVA) | payer OTHER, SELFPAY | PROVIDERS: PCP Emergency Medicine Emergency Medical Services; Visit Provider Internal Medicine | DX: I25.10 Atherosclerotic heart disease of native coronary artery without angina pectoris (principal); I11.0 Hypertensive heart disease with heart failure; I50.9 Heart failure, unspecified; Z95.1 Presence of aortocoronary bypass graft; Z87.891 Personal history of nicotine dependence; Z95.0 Presence of cardiac pacemaker; I73.9 Peripheral vascular disease, unspecified; C15.5 Malignant neoplasm of lower third of esophagus; K92.0 Hematemesis; K92.2 Gastrointestinal hemorrhage, unspecified; E11.9 Type 2 diabetes mellitus without complications; Z79.84 Long term (current) use of oral hypoglycemic drugs | CPT/HCPCS: 99214 ==

== ENCOUNTER → 2022-07-19 08:19 | Outpatient (BNVA) | payer OTHER, SELFPAY | PROVIDERS: PCP Emergency Medicine Emergency Medical Services; Visit Provider Nurse Practitioner | DX: C15.5 Malignant neoplasm of lower third of esophagus (principal) | CPT/HCPCS: 99214 ==

== ENCOUNTER 2022-07-21 11:00 | Oncology outpatient (recurring) (ONCR) | payer OTHER, SELFPAY ==
[2022-07-05 08:54] LABS: Basophils % 0.6 %; Eosinophils # 0.1 10^3/uL (0.0-0.8); Eosinophils % 1.1 %; Hematocrit 38.8 % (42.0-52.0); Hemoglobin 12.5 g/dL (11.7-16.6); Lymphocytes # 0.5 10^3/uL (0.8-4.8); Lymphocytes % 9.2 %; Mean Corpuscular HGB Conc 32.2 g/dL (30.0-36.0); Mean Corpuscular Hemoglobin 33.3 pg (28.0-34.0); Mean Corpuscular Volume 103.5 fl (80-94); Monocytes # 0.6 10^3/uL (0.2-0.9); Monocytes % 11.4 %; Neutrophils # 4.13 10^3/uL (1.8-7.7); Neutrophils % 77.5 %; Nucleated Red Blood Cells % 0 %; Platelet Count 148 10^3/cmm (130-400); Red Blood Count 3.75 10^6/uL (4.1-5.3); Red Cell Distribution Width 15.2 % (12.1-15.1); White Blood Count 5.3 10^3/uL (4.0-10.0)
[2022-07-05 09:25] LABS: Alanine Aminotransferase 15 U/L (0-41); Alkaline Phosphatase 127 U/L (40-130); Anion Gap 16.4 (5-19); Aspartate Amino Transferase 19 U/L (0-40); Blood Urea Nitrogen 16 mg/dL (8-23); Calcium 9.4 mg/dL (8.5-10.5); Carbon Dioxide 27 mmol/L (22-29); Chloride 96 mmol/L (98-107); Creatinine Clr Calc Pharmacy 62.2978; Globulin 2.7 g/dL (1.3-4.6); Glucose 130 mg/dL (65-115); Osmolality Calculated 283 mOsm/kg (285-295); Potassium 4.4 mmol/L (3.5-5.1); Sodium 135 mmol/L (136-145); Total Bilirubin 0.5 mg/dL (0.15-1.2); Total Protein 6.7 g/dL (6.6-8.7)
[2022-07-05] MEDS: sodium chloride 0.9% 250 ML 100 ML IV (11:01)
[2022-07-05] MEDS: palonosetron 0.25 mg/5 mL SDV IVP (11:01)
[2022-07-05] MEDS: nivolumab 240 MG in sodium chloride 0.9% 250 ML 548 MG IV (11:21)
[2022-07-05] MEDS: DEXTROSE 5% IV (12:00)
[2022-07-05] MEDS: LEUCOVORIN IV (12:00)
[2022-07-05] MEDS: dextrose 5% 250 ML 25 ML IV (12:00)
[2022-07-05] MEDS: FLUOROURACIL IV (15:35)
[2022-07-05] MEDS: ELASTOMERIC PUMP PUMP IV (15:35)
[2022-07-05] MEDS: SODIUM CHLORIDE IV (15:35)
[2022-07-05 15:40] VITALS: BP 110/59; PULSE 66; RESP 16; TEMP 36.5; O2SAT 98
[2022-07-19 08:49] LABS: Basophils % 0.6 %; Eosinophils # 0.1 10^3/uL (0.0-0.8); Eosinophils % 0.9 %; Hemoglobin 12.3 g/dL (11.7-16.6); Lymphocytes # 0.4 10^3/uL (0.8-4.8); Lymphocytes % 7.9 %; Mean Corpuscular HGB Conc 32.4 g/dL (30.0-36.0); Mean Corpuscular Hemoglobin 33.2 pg (28.0-34.0); Mean Corpuscular Volume 102.4 fl (80-94); Mean Platelet Volume 10.1 fL (7.4-10.4); Monocytes # 0.7 10^3/uL (0.2-0.9); Monocytes % 12.4 %; Neutrophils # 4.23 10^3/uL (1.8-7.7); Nucleated Red Blood Cells % 0 %; Platelet Count 152 10^3/cmm (130-400); Red Blood Count 3.71 10^6/uL (4.1-5.3); Red Cell Distribution Width 15.9 % (12.1-15.1); White Blood Count 5.4 10^3/uL (4.0-10.0)
[2022-07-19 09:16] LABS: Alanine Aminotransferase 15 U/L (0-41); Albumin Level 3.8 g/dL (3.5-5.2); Alkaline Phosphatase 129 U/L (40-130); Anion Gap 11.2 (5-19); Aspartate Amino Transferase 19 U/L (0-40); Blood Urea Nitrogen 16 mg/dL (8-23); Calcium 8.8 mg/dL (8.5-10.5); Carbon Dioxide 27 mmol/L (22-29); Chloride 99 mmol/L (98-107); Creatinine Clr Calc Pharmacy 62.2978; Glucose 138 mg/dL (65-115); Osmolality Calculated 279 mOsm/kg (285-295); Potassium 4.2 mmol/L (3.5-5.1); Sodium 133 mmol/L (136-145); Thyroid Stimulating Hormone 1.86 uIU/mL (0.27-4.20); Total Bilirubin 0.4 mg/dL (0.15-1.2); Total Protein 5.8 g/dL (6.6-8.7)
[2022-07-19] MEDS: sodium chloride 0.9% 250 ML 100 ML IV (11:25)
[2022-07-19] MEDS: palonosetron 0.25 mg/5 mL SDV IVP (11:27)
[2022-07-19] MEDS: nivolumab 240 MG in sodium chloride 0.9% 250 ML 548 MG IV (11:50)
[2022-07-19] MEDS: dextrose 5% 250 ML 100 ML IV (12:31)
[2022-07-19] MEDS: oxaliplatin 100 MG, oxaliplatin 10 MG in dextrose 5% 250 ML 68 MG IV (12:32)
[2022-07-19] MEDS: LEUCOVORIN IV (12:33)
[2022-07-19] MEDS: DEXTROSE 5% IV (12:33)
[2022-07-19] MEDS: ELASTOMERIC PUMP PUMP IV (15:45)
[2022-07-19] MEDS: FLUOROURACIL IV (15:45)
[2022-07-19] MEDS: SODIUM CHLORIDE IV (15:45)
== END 2022-07-24 23:59 | disposition home or self-care (01) ==
PROVIDERS: PCP Emergency Medicine Emergency Medical Services; Visit Provider Internal Medicine Hematology & Oncology
DX: Z45.2 Encounter for adjustment and management of vascular access device (principal)
CPT/HCPCS: 80053; 84443; 85025; 96367; 96368; 96375; 96413; 96415; 96416; 96417; 96523; 99214; J0640; J1100; J2469; J7050; J7060; J9190; J9263; J9299

== ENCOUNTER → 2022-08-02 07:56 | Outpatient (BNVA) | payer OTHER, SELFPAY | PROVIDERS: PCP Emergency Medicine Emergency Medical Services; Visit Provider Internal Medicine Hematology & Oncology | DX: C15.5 Malignant neoplasm of lower third of esophagus (principal) | CPT/HCPCS: 99214 ==

== ENCOUNTER → 2022-08-21 07:52 | Outpatient (BNVA) | payer OTHER, SELFPAY | PROVIDERS: PCP Emergency Medicine Emergency Medical Services; Visit Provider Nurse Practitioner | DX: C15.5 Malignant neoplasm of lower third of esophagus (principal) | CPT/HCPCS: 99214 ==

== ENCOUNTER 2022-08-23 10:30 | Oncology outpatient (recurring) (ONCR) | payer OTHER, SELFPAY ==
[2022-08-02 08:15] LABS: Basophils % 0.6 %; Eosinophils # 0.1 10^3/uL (0.0-0.8); Eosinophils % 1.4 %; Hematocrit 37.9 % (42.0-52.0); Hemoglobin 12.2 g/dL (11.7-16.6); Lymphocytes # 0.6 10^3/uL (0.8-4.8); Mean Corpuscular HGB Conc 32.2 g/dL (30.0-36.0); Mean Corpuscular Hemoglobin 33.1 pg (28.0-34.0); Mean Corpuscular Volume 102.7 fl (80-94); Mean Platelet Volume 10.1 fL (7.4-10.4); Monocytes # 0.6 10^3/uL (0.2-0.9); Monocytes % 11.8 %; Neutrophils # 3.87 10^3/uL (1.8-7.7); Neutrophils % 74.8 %; Nucleated Red Blood Cells % 0 %; Platelet Count 141 10^3/cmm (130-400); Red Blood Count 3.69 10^6/uL (4.1-5.3); Red Cell Distribution Width 16.3 % (12.1-15.1); White Blood Count 5.2 10^3/uL (4.0-10.0)
[2022-08-02 08:46] LABS: Alanine Aminotransferase 13 U/L (0-41); Albumin Level 3.8 g/dL (3.5-5.2); Alkaline Phosphatase 127 U/L (40-130); Anion Gap 17.3 (5-19); Aspartate Amino Transferase 17 U/L (0-40); Blood Urea Nitrogen 18 mg/dL (8-23); Calcium 9.1 mg/dL (8.5-10.5); Carbon Dioxide 26 mmol/L (22-29); Chloride 99 mmol/L (98-107); Globulin 2.5 g/dL (1.3-4.6); Glucose 122 mg/dL (65-115); Osmolality Calculated 289 mOsm/kg (285-295); Potassium 4.3 mmol/L (3.5-5.1); Sodium 138 mmol/L (136-145); Thyroid Stimulating Hormone 1.53 uIU/mL (0.27-4.20); Total Bilirubin 0.4 mg/dL (0.15-1.2); Total Protein 6.3 g/dL (6.6-8.7)
[2022-08-02] MEDS: sodium chloride 0.9% 250 ML 100 ML IV (10:25)
[2022-08-02] MEDS: palonosetron 0.25 mg/5 mL SDV IVP (10:27)
[2022-08-02] MEDS: nivolumab 240 MG in sodium chloride 0.9% 250 ML 548 MG IV (10:49)
[2022-08-02] MEDS: DEXTROSE 5% IV (11:33)
[2022-08-02] MEDS: oxaliplatin 100 MG, oxaliplatin 10 MG in dextrose 5% 250 ML 68 MG IV (11:33)
[2022-08-02] MEDS: LEUCOVORIN IV (11:33)
[2022-08-02] MEDS: dextrose 5% 250 ML 100 ML IV (11:33)
[2022-08-02] MEDS: ELASTOMERIC PUMP PUMP IV (14:57)
[2022-08-02] MEDS: SODIUM CHLORIDE IV (14:57)
[2022-08-02] MEDS: FLUOROURACIL IV (14:57)
[2022-08-02 15:04] VITALS: BP 112/65; PULSE 68; TEMP 36.5; O2SAT 99
[2022-08-21 08:14] LABS: Basophils % 0.8 %; Eosinophils # 0.1 10^3/uL (0.0-0.8); Eosinophils % 2.4 %; Hemoglobin 11.9 g/dL (11.7-16.6); Lymphocytes # 0.5 10^3/uL (0.8-4.8); Lymphocytes % 13.3 %; Mean Corpuscular HGB Conc 32.2 g/dL (30.0-36.0); Mean Corpuscular Hemoglobin 33.8 pg (28.0-34.0); Mean Corpuscular Volume 105.1 fl (80-94); Mean Platelet Volume 10.4 fL (7.4-10.4); Monocytes # 0.8 10^3/uL (0.2-0.9); Monocytes % 20.3 %; Neutrophils # 2.32 10^3/uL (1.8-7.7); Neutrophils % 62.9 %; Nucleated Red Blood Cells % 0 %; Platelet Count 166 10^3/cmm (130-400); Red Blood Count 3.52 10^6/uL (4.1-5.3); Red Cell Distribution Width 18.1 % (12.1-15.1); White Blood Count 3.7 10^3/uL (4.0-10.0)
[2022-08-21 08:36] LABS: Alanine Aminotransferase 15 U/L (0-41); Albumin Level 3.7 g/dL (3.5-5.2); Alkaline Phosphatase 123 U/L (40-130); Anion Gap 12.1 (5-19); Aspartate Amino Transferase 23 U/L (0-40); Blood Urea Nitrogen 15 mg/dL (8-23); Carbon Dioxide 27 mmol/L (22-29); Chloride 98 mmol/L (98-107); Globulin 2.6 g/dL (1.3-4.6); Glucose 137 mg/dL (65-115); Osmolality Calculated 279 mOsm/kg (285-295); Potassium 4.1 mmol/L (3.5-5.1); Sodium 133 mmol/L (136-145); Total Bilirubin 0.4 mg/dL (0.15-1.2); Total Protein 6.3 g/dL (6.6-8.7)
[2022-08-21] MEDS: palonosetron 0.25 mg/5 mL SDV IVP (09:15)
[2022-08-21] MEDS: dextrose 5% 250 ML 75 ML IV (09:24)
[2022-08-21] MEDS: LEUCOVORIN IV (09:42)
[2022-08-21] MEDS: DEXTROSE 5% IV (09:42)
[2022-08-21] MEDS: oxaliplatin 100 MG, oxaliplatin 10 MG in dextrose 5% 250 ML 68 MG IV (09:42)
[2022-08-21] MEDS: ELASTOMERIC PUMP PUMP IV (13:15)
[2022-08-21] MEDS: SODIUM CHLORIDE IV (13:15)
[2022-08-21] MEDS: FLUOROURACIL IV (13:15)
[2022-08-21 13:29] VITALS: BP 109/62; PULSE 80; RESP 16; TEMP 36.2; O2SAT 98
[2022-08-23 11:00] VITALS: BMI 22.4
[2022-08-23] MEDS: nivolumab 240 MG in sodium chloride 0.9% 250 ML 548 MG IV (11:08)
[2022-08-23 12:00] VITALS: BP 121/65; PULSE 63; RESP 17; TEMP 36.7; O2SAT 97
== END 2022-08-23 23:59 | disposition home or self-care (01) ==
PROVIDERS: Nurse Practitioner; PCP Emergency Medicine Emergency Medical Services; Visit Provider Internal Medicine Hematology & Oncology
DX: Z51.12 Encounter for antineoplastic immunotherapy; C15.5 Malignant neoplasm of lower third of esophagus
CPT/HCPCS: 80053; 84443; 85025; 96367; 96368; 96375; 96413; 96415; 96416; 96417; 96523; J0640; J1100; J2469; J7050; J7060; J9190; J9263; J9299

== ENCOUNTER → 2022-08-25 11:07 | Outpatient (BNVA) | payer OTHER, SELFPAY | PROVIDERS: PCP Emergency Medicine Emergency Medical Services; Visit Provider Internal Medicine | DX: Z45.02 Encounter for adjustment and management of automatic implantable cardiac defibrillator (principal) | CPT/HCPCS: 93282 ==

== ENCOUNTER 2022-09-19 08:00 | Oncology outpatient (recurring) (ONCR) | payer OTHER, SELFPAY ==
[2022-09-05 08:17] LABS: Basophils % 0.8 %; Eosinophils # 0.1 10^3/uL (0.0-0.8); Eosinophils % 1.4 %; Hematocrit 39.5 % (42.0-52.0); Hemoglobin 12.9 g/dL (11.7-16.6); Lymphocytes # 0.6 10^3/uL (0.8-4.8); Lymphocytes % 12.3 %; Mean Corpuscular HGB Conc 32.7 g/dL (30.0-36.0); Mean Corpuscular Hemoglobin 33.4 pg (28.0-34.0); Mean Corpuscular Volume 102.3 fl (80-94); Mean Platelet Volume 10.7 fL (7.4-10.4); Monocytes # 0.8 10^3/uL (0.2-0.9); Monocytes % 16.4 %; Neutrophils # 3.34 10^3/uL (1.8-7.7); Neutrophils % 68.7 %; Nucleated Red Blood Cells % 0 %; Platelet Count 151 10^3/cmm (130-400); Red Blood Count 3.86 10^6/uL (4.1-5.3); Red Cell Distribution Width 18.6 % (12.1-15.1); White Blood Count 4.9 10^3/uL (4.0-10.0)
[2022-09-05 08:32] LABS: Alanine Aminotransferase 17 U/L (0-41); Albumin Level 3.9 g/dL (3.5-5.2); Alkaline Phosphatase 130 U/L (40-130); Aspartate Amino Transferase 25 U/L (0-40); Blood Urea Nitrogen 22 mg/dL (8-23); Calcium 9.2 mg/dL (8.5-10.5); Carbon Dioxide 25 mmol/L (22-29); Chloride 102 mmol/L (98-107); Globulin 2.7 g/dL (1.3-4.6); Glucose 155 mg/dL (65-115); Osmolality Calculated 296 mOsm/kg (285-295); Sodium 140 mmol/L (136-145); Total Bilirubin 0.5 mg/dL (0.15-1.2); Total Protein 6.6 g/dL (6.6-8.7)
[2022-09-05 08:36] LABS: Anion Gap 17.7 (5-19); Potassium 4.7 mmol/L (3.5-5.1)
[2022-09-05 09:39] LABS: Thyroid Stimulating Hormone 2.38 uIU/mL (0.27-4.20)
[2022-09-05 10:00] VITALS: BMI 23.5
[2022-09-05] MEDS: nivolumab 240 MG in sodium chloride 0.9% 250 ML 548 MG IV (10:29)
[2022-09-05] MEDS: sodium chloride 0.9% 250 ML 75 ML IV (10:33)
[2022-09-05] MEDS: dextrose 5% 250 ML 75 ML IV (11:30)
[2022-09-05] MEDS: palonosetron 0.25 mg/5 mL SDV IVP (11:31)
[2022-09-05] MEDS: oxaliplatin 100 MG, oxaliplatin 10 MG in dextrose 5% 250 ML 68 MG IV (11:43)
[2022-09-05] MEDS: LEUCOVORIN IV (11:43)
[2022-09-05] MEDS: DEXTROSE 5% IV (11:43)
[2022-09-05 14:09] VITALS: BP 124/77; PULSE 84; RESP 16; TEMP 36.6; O2SAT 98
[2022-09-19 08:23] LABS: Basophils % 0.6 %; Eosinophils # 0.1 10^3/uL (0.0-0.8); Eosinophils % 1.9 %; Hematocrit 39.2 % (42.0-52.0); Lymphocytes # 0.4 10^3/uL (0.8-4.8); Lymphocytes % 8.2 %; Mean Corpuscular HGB Conc 33.2 g/dL (30.0-36.0); Mean Corpuscular Hemoglobin 34.2 pg (28.0-34.0); Mean Corpuscular Volume 103.2 fl (80-94); Mean Platelet Volume 9.9 fL (7.4-10.4); Monocytes # 0.7 10^3/uL (0.2-0.9); Monocytes % 13.6 %; Neutrophils # 4.06 10^3/uL (1.8-7.7); Neutrophils % 75.5 %; Nucleated Red Blood Cells % 0 %; Platelet Count 145 10^3/cmm (130-400); Red Cell Distribution Width 17.8 % (12.1-15.1); White Blood Count 5.4 10^3/uL (4.0-10.0)
[2022-09-19 08:53] LABS: Alanine Aminotransferase 19 U/L (0-41); Albumin Level 3.8 g/dL (3.5-5.2); Alkaline Phosphatase 134 U/L (40-130); Anion Gap 13.1 (5-19); Aspartate Amino Transferase 26 U/L (0-40); Blood Urea Nitrogen 17 mg/dL (8-23); Calcium 8.9 mg/dL (8.5-10.5); Carbon Dioxide 27 mmol/L (22-29); Chloride 99 mmol/L (98-107); Globulin 2.6 g/dL (1.3-4.6); Glucose 136 mg/dL (65-115); Osmolality Calculated 284 mOsm/kg (285-295); Potassium 4.1 mmol/L (3.5-5.1); Sodium 135 mmol/L (136-145); Thyroid Stimulating Hormone 1.67 uIU/mL (0.27-4.20); Total Bilirubin 0.4 mg/dL (0.15-1.2); Total Protein 6.4 g/dL (6.6-8.7)
[2022-09-19] MEDS: sodium chloride 0.9% 250 ML 100 ML IV (10:05)
[2022-09-19] MEDS: nivolumab 240 MG in sodium chloride 0.9% 250 ML 548 MG IV (10:26)
[2022-09-19 11:14] VITALS: BP 115/61; PULSE 78; TEMP 36; O2SAT 98
== END 2022-09-20 09:28 | disposition home or self-care (01) ==
PROVIDERS: Nurse Practitioner; PCP Emergency Medicine Emergency Medical Services; Visit Provider Internal Medicine Hematology & Oncology
DX: Z51.12 Encounter for antineoplastic immunotherapy (principal); C15.5 Malignant neoplasm of lower third of esophagus; C77.8 Secondary and unspecified malignant neoplasm of lymph nodes of multiple regions; C78.01 Secondary malignant neoplasm of right lung; Z79.899 Other long term (current) drug therapy
CPT/HCPCS: 80053; 84443; 85025; 96367; 96368; 96375; 96413; 96415; 96416; 96417; 96523; 99214; J0640; J1100; J2469; J7050; J7060; J9190; J9263; J9299

== ENCOUNTER 2022-10-17 08:00 | Oncology outpatient (recurring) (ONCR) | payer OTHER, SELFPAY ==
[2022-10-03 08:52] LABS: Basophils % 0.5 %; Eosinophils # 0.2 10^3/uL (0.0-0.8); Eosinophils % 3.9 %; Hematocrit 40.9 % (42.0-52.0); Hemoglobin 13.1 g/dL (11.7-16.6); Lymphocytes # 0.4 10^3/uL (0.8-4.8); Lymphocytes % 7.5 %; Mean Corpuscular Hemoglobin 33.9 pg (28.0-34.0); Mean Corpuscular Volume 105.7 fl (80-94); Mean Platelet Volume 9.8 fL (7.4-10.4); Monocytes # 0.8 10^3/uL (0.2-0.9); Monocytes % 13.1 %; Neutrophils # 4.37 10^3/uL (1.8-7.7); Neutrophils % 74.5 %; Nucleated Red Blood Cells % 0 %; Platelet Count 194 10^3/cmm (130-400); Red Blood Count 3.87 10^6/uL (4.1-5.3); Red Cell Distribution Width 17.2 % (12.1-15.1); White Blood Count 5.9 10^3/uL (4.0-10.0)
[2022-10-03 09:24] LABS: Alanine Aminotransferase 17 U/L (0-41); Alkaline Phosphatase 135 U/L (40-130); Anion Gap 15.4 (5-19); Aspartate Amino Transferase 24 U/L (0-40); Blood Urea Nitrogen 20 mg/dL (8-23); Calcium 8.7 mg/dL (8.5-10.5); Carbon Dioxide 26 mmol/L (22-29); Chloride 100 mmol/L (98-107); Globulin 2.7 g/dL (1.3-4.6); Glucose 124 mg/dL (65-115); Osmolality Calculated 288 mOsm/kg (285-295); Potassium 4.4 mmol/L (3.5-5.1); Sodium 137 mmol/L (136-145); Thyroid Stimulating Hormone 1.75 uIU/mL (0.27-4.20); Total Bilirubin 0.5 mg/dL (0.15-1.2); Total Protein 6.7 g/dL (6.6-8.7)
[2022-10-03] MEDS: sodium chloride 0.9% 250 ML 100 ML IV (10:33)
[2022-10-03] MEDS: nivolumab 240 MG in sodium chloride 0.9% 250 ML 548 MG IV (10:46)
[2022-10-03 11:36] VITALS: BP 117/63; PULSE 70; TEMP 36.3; O2SAT 98
[2022-10-17 08:20] LABS: Basophils % 0.6 %; Eosinophils # 0.4 10^3/uL (0.0-0.8); Eosinophils % 6.6 %; Hematocrit 38.5 % (42.0-52.0); Hemoglobin 12.3 g/dL (11.7-16.6); Lymphocytes # 0.5 10^3/uL (0.8-4.8); Lymphocytes % 7.8 %; Mean Corpuscular HGB Conc 31.9 g/dL (30.0-36.0); Mean Corpuscular Hemoglobin 33.4 pg (28.0-34.0); Mean Corpuscular Volume 104.6 fl (80-94); Mean Platelet Volume 9.7 fL (7.4-10.4); Neutrophils # 4.57 10^3/uL (1.8-7.7); Neutrophils % 69.7 %; Nucleated Red Blood Cells % 0 %; Platelet Count 184 10^3/cmm (130-400); Red Blood Count 3.68 10^6/uL (4.1-5.3); White Blood Count 6.6 10^3/uL (4.0-10.0)
[2022-10-17 09:00] LABS: Alanine Aminotransferase 16 U/L (0-41); Albumin Level 4.1 g/dL (3.5-5.2); Alkaline Phosphatase 121 U/L (40-130); Aspartate Amino Transferase 30 U/L (0-40); Blood Urea Nitrogen 26 mg/dL (8-23); Calcium 8.7 mg/dL (8.5-10.5); Carbon Dioxide 24 mmol/L (22-29); Chloride 98 mmol/L (98-107); Globulin 2.6 g/dL (1.3-4.6); Glucose 189 mg/dL (65-115); Osmolality Calculated 286 mOsm/kg (285-295); Sodium 133 mmol/L (136-145); Thyroid Stimulating Hormone 1.88 uIU/mL (0.27-4.20); Total Bilirubin 0.5 mg/dL (0.15-1.2); Total Protein 6.7 g/dL (6.6-8.7)
[2022-10-17] MEDS: sodium chloride 0.9% 250 ML 100 ML IV (10:06)
[2022-10-17] MEDS: nivolumab 240 MG in sodium chloride 0.9% 250 ML 548 MG IV (10:28)
[2022-10-17 11:15] VITALS: BP 116/67; PULSE 71; TEMP 36.2; O2SAT 99
== END 2022-10-19 10:50 | disposition home or self-care (01) ==
PROVIDERS: PCP Emergency Medicine Emergency Medical Services; Visit Provider Internal Medicine Hematology & Oncology
DX: Z51.12 Encounter for antineoplastic immunotherapy (principal); C15.5 Malignant neoplasm of lower third of esophagus; R13.14 Dysphagia, pharyngoesophageal phase; Z79.899 Other long term (current) drug therapy; Z87.891 Personal history of nicotine dependence
CPT/HCPCS: 36415; 80053; 84443; 85025; 96413; 99213; 99214; J7050; J9299

== ENCOUNTER 2022-10-21 11:11 | Outpatient (CLI) | payer OTHER, SELFPAY ==
--- NOTE | 2022-10-21 11:30 | PETR_ITS ---
PROCEDURE INFORMATION: Exam: PET/CT Skull Base to Mid-thigh Exam date and time: 10/21/2022 12:47 PM Age: 87 years old Clinical indication: Condition or disease; Patient HX: Malignant neoplasm of lower third of esophagus, follow up to therapy LABS AND CLINICAL REPORTS: Glucose: 126 mg/dl Treatment strategy for malignancy (PET staging): Restaging (PS) TECHNIQUE: Imaging protocol: Following at least four-hour fasting and following the injection of F-18-FDG, low dose CT images were obtained. Then, PET images were obtained. Attenuation corrected images were constructed using the CT scan. Fused images of PET and CT were reviewed. The standardized uptake values (SUV) reported below are maximum values within a region of interest, expressed in gm/ml. Exam includes orbital meatal line to mid-thigh. Radiopharmaceutical: 12.24 mCi F-18 FDG (Fluorodeoxyglucose), IV. Time of imaging post radiopharmaceutical administration: 1 hour Injection site: Not provided COMPARISON: PT PET Scan 04/22/2022 11:18 AM FINDINGS: Tubes, catheters and devices: A right subclavian central venous port catheter terminates in the distal SVC. Brain: Visualized brain has normal physiologic uptake. Pharynx: No abnormal uptake. Larynx: No abnormal uptake. Lungs, pleura and trachea: Moderate bilateral centrilobular emphysematous changes are present. Mild ill-defined streaky and patchy density in the superior right middle lobe appears similar to slightly less prominent on series 3, image 68 without elevated uptake. Heart: Normal physiologic uptake. Mediastinal space: Mild uptake in the mid to distal esophagus is identified with an SUV max 3.6 on series 4, image 75 (previous SUV max 5.1) without evidence of a well-defined lesion. Liver: A non radiotracer avid hypodense structure in the posterior right liver lobe measures 1 cm on series 3, image 80. An additional left liver lobe non radiotracer avid low-density lesion measures 1 cm on series 3, image 84. Gallbladder and bile ducts: The gallbladder is not identified, likely surgically absent. Pancreas: No abnormal uptake. Spleen: No abnormal uptake. Adrenal glands: No abnormal uptake. Kidneys and ureters: A non radiotracer avid 8 mm low-density structure in the left renal superior pole demonstrates a density of simple fluid. Similar scarring of the parenchyma of the right kidney. Stomach and bowel: There are scattered colonic diverticula. Mild uptake in the wall of the distal sigmoid colon is identified, SUV max 4.9 (previously 5.5) associated with possible mild wall thickening. Assessment is limited without intraluminal contrast. Urinary bladder: Moderate distention of the urinary bladder. Vasculature: There are diffuse atherosclerotic changes including within the coronary arteries. A stent in the left external iliac artery is noted. Lymph nodes: A prominent precarinal lymph node measures 2.0 x 1.2 cm on series 3, image 55, SUV max 3.2 (previously measuring 1.9 x 1.1 cm, SUV max 2.6). Uptake in the left hilar region demonstrates an SUV max 3.4 (previously 3.7) without a well-defined lymph node. A subcarinal lymph node measures 1.8 x 1.2 cm on series 3, image 64, SUV max 4.4 (previously measuring 1.4 x 0.7 cm within SUV max 2.6). Bones/joints: Moderate degenerative spondylosis of the spine is present. The bones appear demineralized. Anterior metallic fusion at C5-C6 is noted. Moderate primary osteoarthritic changes within the bilateral glenohumeral joints are noted. An old appearing mild compression fracture of the superior endplate of T9 is noted without elevated uptake. Soft tissues: No abnormal uptake in the visualized head, neck, chest, abdomen, pelvis, and extremities. METRICS: Mediastinal blood pool: SUV max 2.1 [facility] [id number] IMPRESSION: 1. Radiotracer uptake in the mid to distal esophagus has decreased (SUV max 3.6, previously 5.1) likely reflecting interval partial response to therapy. Residual neoplastic involvement cannot be excluded. 2. Mildly prominent mediastinal lymph nodes demonstrate an increase in activity in the precarinal and subcarinal spaces (SUV max 4.4) for which neoplastic involvement cannot be excluded. There is elevated but slightly decreased uptake in the left hilar region without evidence of a well-defined lymph node. 3. Mild uptake in the wall of the sigmoid colon persists but is slightly decreased , associated with possible mild wall thickening. Assessment of the wall is limited by incomplete distention. This uptake may be physiologic in nature although underlying inflammatory, infectious or neoplastic involvement cannot be entirely excluded. 4. Mild patchy impossible nodular density in the right middle lobe is less pronounced than on the prior PET-CT without elevated uptake which favors a benign etiology. No new pulmonary nodules. 5. Low-density lesions in the liver and left kidney are not radiotracer avid which favors a benign etiology likely representing simple cysts. 6. Additional nonurgent findings as detailed above.
== END 2022-10-21 11:12 | disposition home or self-care (01) ==
LOC: RAD 10-23 06:24
PROVIDERS: PCP Emergency Medicine Emergency Medical Services; Visit Provider Internal Medicine Hematology & Oncology
DX: C15.5 Malignant neoplasm of lower third of esophagus (principal)
CPT/HCPCS: 78815; A9552

== ENCOUNTER 2022-11-15 08:30 | Oncology outpatient (recurring) (ONCR) | payer OTHER, SELFPAY ==
[2022-10-31 08:24] LABS: Basophils % 0.3 %; Eosinophils # 0.2 10^3/uL (0.0-0.8); Eosinophils % 3.3 %; Hematocrit 37.1 % (42.0-52.0); Lymphocytes # 0.3 10^3/uL (0.8-4.8); Lymphocytes % 5.1 %; Mean Corpuscular HGB Conc 32.3 g/dL (30.0-36.0); Mean Corpuscular Hemoglobin 33.1 pg (28.0-34.0); Mean Corpuscular Volume 102.5 fl (80-94); Mean Platelet Volume 9.5 fL (7.4-10.4); Monocytes # 0.9 10^3/uL (0.2-0.9); Monocytes % 13.3 %; Neutrophils # 4.97 10^3/uL (1.8-7.7); Neutrophils % 77.5 %; Nucleated Red Blood Cells % 0 %; Platelet Count 206 10^3/cmm (130-400); Red Blood Count 3.62 10^6/uL (4.1-5.3); Red Cell Distribution Width 14.7 % (12.1-15.1); White Blood Count 6.4 10^3/uL (4.0-10.0)
[2022-10-31 08:47] LABS: Alanine Aminotransferase 16 U/L (0-41); Albumin Level 3.6 g/dL (3.5-5.2); Alkaline Phosphatase 114 U/L (40-130); Anion Gap 15.9 (5-19); Aspartate Amino Transferase 26 U/L (0-40); Blood Urea Nitrogen 25 mg/dL (8-23); Calcium 8.7 mg/dL (8.5-10.5); Carbon Dioxide 25 mmol/L (22-29); Chloride 96 mmol/L (98-107); Globulin 2.8 g/dL (1.3-4.6); Glucose 124 mg/dL (65-115); Osmolality Calculated 282 mOsm/kg (285-295); Potassium 3.9 mmol/L (3.5-5.1); Sodium 133 mmol/L (136-145); Thyroid Stimulating Hormone 1.81 uIU/mL (0.27-4.20); Total Bilirubin 0.6 mg/dL (0.15-1.2); Total Protein 6.4 g/dL (6.6-8.7)
[2022-10-31 08:54] LABS: Creatinine Clr Calc Pharmacy 57.4414
[2022-10-31] MEDS: nivolumab 240 MG in sodium chloride 0.9% 250 ML 548 MG IV (10:50)
[2022-11-15 08:40] LABS: Basophils % 0.5 %; Eosinophils # 0.2 10^3/uL (0.0-0.8); Hematocrit 41.4 % (42.0-52.0); Hemoglobin 13.3 g/dL (11.7-16.6); Lymphocytes # 0.4 10^3/uL (0.8-4.8); Lymphocytes % 6.5 %; Mean Corpuscular HGB Conc 32.1 g/dL (30.0-36.0); Mean Corpuscular Hemoglobin 33.5 pg (28.0-34.0); Mean Corpuscular Volume 104.3 fl (80-94); Mean Platelet Volume 9.7 fL (7.4-10.4); Monocytes # 0.6 10^3/uL (0.2-0.9); Monocytes % 10.5 %; Neutrophils # 4.45 10^3/uL (1.8-7.7); Neutrophils % 78.1 %; Nucleated Red Blood Cells % 0 %; Platelet Count 197 10^3/cmm (130-400); Red Blood Count 3.97 10^6/uL (4.1-5.3); Red Cell Distribution Width 14.6 % (12.1-15.1); White Blood Count 5.7 10^3/uL (4.0-10.0)
[2022-11-15 09:09] LABS: Alanine Aminotransferase 20 U/L (0-41); Albumin Level 3.5 g/dL (3.5-5.2); Alkaline Phosphatase 124 U/L (40-130); Anion Gap 13.3 (5-19); Aspartate Amino Transferase 28 U/L (0-40); Blood Urea Nitrogen 14 mg/dL (8-23); Calcium 9.1 mg/dL (8.5-10.5); Carbon Dioxide 26 mmol/L (22-29); Chloride 97 mmol/L (98-107); Globulin 3.2 g/dL (1.3-4.6); Glucose 146 mg/dL (65-115); Osmolality Calculated 277 mOsm/kg (285-295); Potassium 4.3 mmol/L (3.5-5.1); Sodium 132 mmol/L (136-145); Thyroid Stimulating Hormone 2.06 uIU/mL (0.27-4.20); Total Bilirubin 0.3 mg/dL (0.15-1.2); Total Protein 6.7 g/dL (6.6-8.7)
[2022-11-15] MEDS: nivolumab 240 MG in sodium chloride 0.9% 250 ML 548 MG IV (11:36)
[2022-11-15 14:20] VITALS: BP 118/66; PULSE 73; TEMP 36.3; O2SAT 97
== END 2022-11-21 23:59 | disposition home or self-care (01) ==
PROVIDERS: PCP Emergency Medicine Emergency Medical Services; Visit Provider Internal Medicine Hematology & Oncology
DX: Z51.12 Encounter for antineoplastic immunotherapy (principal); C15.5 Malignant neoplasm of lower third of esophagus; R13.14 Dysphagia, pharyngoesophageal phase; C77.8 Secondary and unspecified malignant neoplasm of lymph nodes of multiple regions; Z79.899 Other long term (current) drug therapy; Z87.891 Personal history of nicotine dependence
CPT/HCPCS: 80053; 84443; 85025; 96413; 99214; J7050; J9299

== ENCOUNTER 2022-12-12 08:00 | Oncology outpatient (recurring) (ONCR) | payer OTHER, SELFPAY ==
[2022-11-28 08:26] LABS: Basophils % 0.8 %; Eosinophils # 0.2 10^3/uL (0.0-0.8); Hemoglobin 13.1 g/dL (11.7-16.6); Lymphocytes # 0.4 10^3/uL (0.8-4.8); Lymphocytes % 7.7 %; Mean Corpuscular Hemoglobin 32.8 pg (28.0-34.0); Mean Corpuscular Volume 102.8 fl (80-94); Mean Platelet Volume 10.2 fL (7.4-10.4); Monocytes # 0.7 10^3/uL (0.2-0.9); Monocytes % 13.1 %; Neutrophils # 3.71 10^3/uL (1.8-7.7); Nucleated Red Blood Cells % 0 %; Platelet Count 187 10^3/cmm (130-400); Red Blood Count 3.99 10^6/uL (4.1-5.3)
[2022-11-28 09:05] LABS: Thyroid Stimulating Hormone 2.23 uIU/mL (0.27-4.20)
[2022-11-28 09:06] LABS: Alanine Aminotransferase 20 U/L (0-41); Albumin Level 4.1 g/dL (3.5-5.2); Alkaline Phosphatase 136 U/L (40-130); Aspartate Amino Transferase 30 U/L (0-40); Blood Urea Nitrogen 20 mg/dL (8-23); Calcium 9.3 mg/dL (8.5-10.5); Carbon Dioxide 26 mmol/L (22-29); Globulin 2.6 g/dL (1.3-4.6); Glucose 161 mg/dL (65-115); Osmolality Calculated 276 mOsm/kg (285-295); Total Bilirubin 0.6 mg/dL (0.15-1.2); Total Protein 6.7 g/dL (6.6-8.7)
[2022-11-28 09:24] LABS: Anion Gap 12.4 (5-19); Chloride 96 mmol/L (98-107); Potassium 4.4 mmol/L (3.5-5.1); Sodium 130 mmol/L (136-145)
[2022-11-28] MEDS: nivolumab 240 MG in sodium chloride 0.9% 250 ML 548 MG IV (10:55)
[2022-11-28 11:38] VITALS: BP 112/67; PULSE 68; TEMP 36.3; O2SAT 99
[2022-12-12 08:23] LABS: Basophils # 0.1 10^3/uL (0.0-0.1); Basophils % 0.8 %; Eosinophils # 0.2 10^3/uL (0.0-0.8); Eosinophils % 2.6 %; Hematocrit 41.1 % (42.0-52.0); Hemoglobin 13.3 g/dL (11.7-16.6); Lymphocytes # 0.5 10^3/uL (0.8-4.8); Lymphocytes % 7.9 %; Mean Corpuscular HGB Conc 32.4 g/dL (30.0-36.0); Mean Corpuscular Hemoglobin 32.9 pg (28.0-34.0); Mean Corpuscular Volume 101.7 fl (80-94); Mean Platelet Volume 10.6 fL (7.4-10.4); Monocytes # 0.8 10^3/uL (0.2-0.9); Monocytes % 12.2 %; Neutrophils % 76.2 %; Nucleated Red Blood Cells % 0 %; Platelet Count 164 10^3/cmm (130-400); Red Blood Count 4.04 10^6/uL (4.1-5.3); Red Cell Distribution Width 14.6 % (12.1-15.1); White Blood Count 6.2 10^3/uL (4.0-10.0)
[2022-12-12 08:53] LABS: Alanine Aminotransferase 19 U/L (0-41); Albumin Level 3.9 g/dL (3.5-5.2); Alkaline Phosphatase 105 U/L (40-130); Aspartate Amino Transferase 27 U/L (0-40); Blood Urea Nitrogen 16 mg/dL (8-23); Carbon Dioxide 26 mmol/L (22-29); Chloride 98 mmol/L (98-107); Globulin 2.8 g/dL (1.3-4.6); Glucose 119 mg/dL (65-115); Osmolality Calculated 280 mOsm/kg (285-295); Sodium 134 mmol/L (136-145); Thyroid Stimulating Hormone 2.26 uIU/mL (0.27-4.20); Total Bilirubin 0.6 mg/dL (0.15-1.2); Total Protein 6.7 g/dL (6.6-8.7)
[2022-12-12 08:59] LABS: Anion Gap 14.1 (5-19); Potassium 4.1 mmol/L (3.5-5.1)
[2022-12-12] MEDS: nivolumab 240 MG in sodium chloride 0.9% 250 ML 548 MG IV (10:22)
[2022-12-12 11:09] VITALS: BP 104/56; PULSE 65; TEMP 35.9; O2SAT 97
== END 2022-12-22 23:59 | disposition home or self-care (01) ==
PROVIDERS: PCP Emergency Medicine Emergency Medical Services; Visit Provider Internal Medicine Hematology & Oncology
DX: Z51.12 Encounter for antineoplastic immunotherapy (principal); C15.5 Malignant neoplasm of lower third of esophagus; R13.14 Dysphagia, pharyngoesophageal phase; R59.0 Localized enlarged lymph nodes; R19.7 Diarrhea, unspecified; R21 Rash and other nonspecific skin eruption; Z79.899 Other long term (current) drug therapy
CPT/HCPCS: 80053; 84443; 85025; 96413; 99214; J7050; J9299

== ENCOUNTER → 2022-12-27 14:35 | Outpatient (BNVA) | payer OTHER, SELFPAY | PROVIDERS: PCP Emergency Medicine Emergency Medical Services; Visit Provider Internal Medicine | DX: I25.10 Atherosclerotic heart disease of native coronary artery without angina pectoris (principal); I73.9 Peripheral vascular disease, unspecified; C15.5 Malignant neoplasm of lower third of esophagus; E11.9 Type 2 diabetes mellitus without complications; Z79.84 Long term (current) use of oral hypoglycemic drugs; I11.0 Hypertensive heart disease with heart failure; I50.9 Heart failure, unspecified; Z95.0 Presence of cardiac pacemaker; Z87.891 Personal history of nicotine dependence | CPT/HCPCS: 99214 ==

== ENCOUNTER 2023-01-09 08:05 | Oncology outpatient (recurring) (ONCR) | payer OTHER, SELFPAY ==
[2022-12-26 08:23] VITALS: BP 108/60; PULSE 87; TEMP 35.9; O2SAT 99
[2022-12-26 08:26] LABS: Basophils % 0.7 %; Eosinophils # 0.2 10^3/uL (0.0-0.8); Eosinophils % 2.9 %; Hematocrit 40.1 % (42.0-52.0); Hemoglobin 13.2 g/dL (11.7-16.6); Lymphocytes # 0.5 10^3/uL (0.8-4.8); Mean Corpuscular HGB Conc 32.9 g/dL (30.0-36.0); Mean Corpuscular Hemoglobin 33.1 pg (28.0-34.0); Mean Corpuscular Volume 100.5 fl (80-94); Monocytes # 0.6 10^3/uL (0.2-0.9); Monocytes % 10.9 %; Neutrophils # 4.53 10^3/uL (1.8-7.7); Neutrophils % 77.2 %; Nucleated Red Blood Cells % 0 %; Platelet Count 171 10^3/cmm (130-400); Red Blood Count 3.99 10^6/uL (4.1-5.3); Red Cell Distribution Width 14.7 % (12.1-15.1); White Blood Count 5.9 10^3/uL (4.0-10.0)
[2022-12-26 09:05] LABS: Alanine Aminotransferase 17 U/L (0-41); Albumin Level 4.1 g/dL (3.5-5.2); Alkaline Phosphatase 98 U/L (40-130); Anion Gap 15.2 (5-19); Aspartate Amino Transferase 22 U/L (0-40); Blood Urea Nitrogen 19 mg/dL (8-23); Calcium 8.7 mg/dL (8.5-10.5); Carbon Dioxide 25 mmol/L (22-29); Chloride 100 mmol/L (98-107); Globulin 2.6 g/dL (1.3-4.6); Glucose 128 mg/dL (65-115); Osmolality Calculated 286 mOsm/kg (285-295); Potassium 4.2 mmol/L (3.5-5.1); Sodium 136 mmol/L (136-145); Thyroid Stimulating Hormone 2.53 uIU/mL (0.27-4.20); Total Bilirubin 0.8 mg/dL (0.15-1.2); Total Protein 6.7 g/dL (6.6-8.7)
[2022-12-26] MEDS: nivolumab 240 MG in sodium chloride 0.9% 250 ML 548 MG IV (10:01)
[2022-12-26 10:35] VITALS: BP 103/58; PULSE 69; TEMP 36.1; O2SAT 95
[2023-01-09 07:54] VITALS: BP 108/65; PULSE 82; TEMP 36.2; O2SAT 99
[2023-01-09 08:04] LABS: Basophils # 0.1 10^3/uL (0.0-0.1); Basophils % 0.9 %; Eosinophils # 0.2 10^3/uL (0.0-0.8); Eosinophils % 3.6 %; Hematocrit 42.4 % (42.0-52.0); Hemoglobin 13.8 g/dL (11.7-16.6); Lymphocytes # 0.5 10^3/uL (0.8-4.8); Lymphocytes % 8.7 %; Mean Corpuscular HGB Conc 32.5 g/dL (30.0-36.0); Mean Corpuscular Hemoglobin 33.2 pg (28.0-34.0); Mean Corpuscular Volume 101.9 fl (80-94); Mean Platelet Volume 10.5 fL (7.4-10.4); Monocytes # 0.7 10^3/uL (0.2-0.9); Monocytes % 11.6 %; Neutrophils # 4.38 10^3/uL (1.8-7.7); Nucleated Red Blood Cells % 0 %; Platelet Count 188 10^3/cmm (130-400); Red Blood Count 4.16 10^6/uL (4.1-5.3); Red Cell Distribution Width 14.9 % (12.1-15.1); White Blood Count 5.8 10^3/uL (4.0-10.0)
[2023-01-09 08:27] LABS: Alanine Aminotransferase 17 U/L (0-41); Albumin Level 3.9 g/dL (3.5-5.2); Alkaline Phosphatase 108 U/L (40-130); Anion Gap 16.2 (5-19); Aspartate Amino Transferase 24 U/L (0-40); Blood Urea Nitrogen 16 mg/dL (8-23); Calcium 8.8 mg/dL (8.5-10.5); Carbon Dioxide 23 mmol/L (22-29); Chloride 98 mmol/L (98-107); Globulin 2.8 g/dL (1.3-4.6); Glucose 144 mg/dL (65-115); Osmolality Calculated 280 mOsm/kg (285-295); Potassium 4.2 mmol/L (3.5-5.1); Sodium 133 mmol/L (136-145); Thyroid Stimulating Hormone 2.18 uIU/mL (0.27-4.20); Total Bilirubin 0.7 mg/dL (0.15-1.2); Total Protein 6.7 g/dL (6.6-8.7)
[2023-01-09] MEDS: nivolumab 240 MG in sodium chloride 0.9% 250 ML 548 MG IV (10:25)
[2023-01-09 11:01] VITALS: BP 110/54; PULSE 69; TEMP 36.7; O2SAT 97
== END 2023-01-09 23:59 | disposition home or self-care (01) ==
PROVIDERS: Nurse Practitioner Family; PCP Emergency Medicine Emergency Medical Services; Visit Provider Internal Medicine Hematology & Oncology
DX: Z51.12 Encounter for antineoplastic immunotherapy (principal); C15.5 Malignant neoplasm of lower third of esophagus; R13.14 Dysphagia, pharyngoesophageal phase; R59.0 Localized enlarged lymph nodes; K76.89 Other specified diseases of liver; Z79.899 Other long term (current) drug therapy; R91.1 Solitary pulmonary nodule; K52.9 Noninfective gastroenteritis and colitis, unspecified; Z87.891 Personal history of nicotine dependence
CPT/HCPCS: 80053; 84443; 85025; 96413; 99214; J7050; J9299

== ENCOUNTER 2023-02-06 08:30 | Oncology outpatient (recurring) (ONCR) | payer OTHER, SELFPAY ==
[2023-01-23 07:52] VITALS: BP 105/60; PULSE 86; TEMP 36.1; O2SAT 97
[2023-01-23 07:59] LABS: Basophils # 0.1 10^3/uL (0.0-0.1); Basophils % 0.7 %; Eosinophils # 0.2 10^3/uL (0.0-0.8); Eosinophils % 2.1 %; Hematocrit 40.8 % (42.0-52.0); Hemoglobin 13.4 g/dL (11.7-16.6); Lymphocytes # 0.5 10^3/uL (0.8-4.8); Lymphocytes % 7.4 %; Mean Corpuscular HGB Conc 32.8 g/dL (30.0-36.0); Mean Corpuscular Hemoglobin 33.2 pg (28.0-34.0); Monocytes # 0.7 10^3/uL (0.2-0.9); Monocytes % 9.4 %; Neutrophils # 5.63 10^3/uL (1.8-7.7); Neutrophils % 80.1 %; Nucleated Red Blood Cells % 0 %; Platelet Count 185 10^3/cmm (130-400); Red Blood Count 4.04 10^6/uL (4.1-5.3); Red Cell Distribution Width 15.1 % (12.1-15.1)
[2023-01-23 08:28] LABS: Alanine Aminotransferase 16 U/L (0-41); Alkaline Phosphatase 110 U/L (40-130); Anion Gap 16.8 (5-19); Aspartate Amino Transferase 25 U/L (0-40); Blood Urea Nitrogen 24 mg/dL (8-23); Calcium 8.9 mg/dL (8.5-10.5); Carbon Dioxide 25 mmol/L (22-29); Chloride 97 mmol/L (98-107); Globulin 2.7 g/dL (1.3-4.6); Glucose 142 mg/dL (65-115); Osmolality Calculated 286 mOsm/kg (285-295); Potassium 3.8 mmol/L (3.5-5.1); Sodium 135 mmol/L (136-145); Thyroid Stimulating Hormone 2.14 uIU/mL (0.27-4.20); Total Bilirubin 0.7 mg/dL (0.15-1.2); Total Protein 6.7 g/dL (6.6-8.7)
[2023-01-23] MEDS: nivolumab 240 MG in sodium chloride 0.9% 250 ML 548 MG IV (10:24)
[2023-01-23 11:08] VITALS: BP 108/61; PULSE 68; TEMP 36.2; O2SAT 99
[2023-02-06 07:30] VITALS: BP 110/61; PULSE 78; TEMP 36.2; O2SAT 95
[2023-02-06 08:00] LABS: Basophils % 0.7 %; Eosinophils # 0.2 10^3/uL (0.0-0.8); Eosinophils % 2.5 %; Hematocrit 40.8 % (42.0-52.0); Hemoglobin 13.3 g/dL (11.7-16.6); Lymphocytes # 0.5 10^3/uL (0.8-4.8); Lymphocytes % 7.5 %; Mean Corpuscular HGB Conc 32.6 g/dL (30.0-36.0); Mean Corpuscular Hemoglobin 32.8 pg (28.0-34.0); Mean Corpuscular Volume 100.5 fl (80-94); Mean Platelet Volume 10.3 fL (7.4-10.4); Monocytes # 0.7 10^3/uL (0.2-0.9); Monocytes % 11.1 %; Neutrophils # 4.71 10^3/uL (1.8-7.7); Neutrophils % 77.9 %; Nucleated Red Blood Cells % 0 %; Platelet Count 191 10^3/cmm (130-400); Red Blood Count 4.06 10^6/uL (4.1-5.3); Red Cell Distribution Width 14.8 % (12.1-15.1)
[2023-02-06 08:42] LABS: Alanine Aminotransferase 21 U/L (0-41); Alkaline Phosphatase 117 U/L (40-130); Anion Gap 16.6 (5-19); Aspartate Amino Transferase 23 U/L (0-40); Blood Urea Nitrogen 21 mg/dL (8-23); Calcium 8.7 mg/dL (8.5-10.5); Carbon Dioxide 26 mmol/L (22-29); Chloride 98 mmol/L (98-107); Globulin 2.5 g/dL (1.3-4.6); Glucose 150 mg/dL (65-115); Osmolality Calculated 288 mOsm/kg (285-295); Potassium 4.6 mmol/L (3.5-5.1); Sodium 136 mmol/L (136-145); Total Bilirubin 0.6 mg/dL (0.15-1.2); Total Protein 6.5 g/dL (6.6-8.7)
[2023-02-06 08:43] LABS: Thyroid Stimulating Hormone 1.81 uIU/mL (0.27-4.20)
[2023-02-06] MEDS: nivolumab 240 MG in sodium chloride 0.9% 250 ML 548 MG IV (09:13)
[2023-02-06 09:58] VITALS: BP 105/50; PULSE 65; TEMP 36.3; O2SAT 96
== END 2023-02-06 23:59 | disposition home or self-care (01) ==
PROVIDERS: Nurse Practitioner Family; PCP Emergency Medicine Emergency Medical Services; Visit Provider Internal Medicine Hematology & Oncology
DX: Z51.12 Encounter for antineoplastic immunotherapy (principal); C15.5 Malignant neoplasm of lower third of esophagus; Z79.899 Other long term (current) drug therapy
CPT/HCPCS: 80053; 84443; 85025; 96375; 96413; 99214; J1642; J7050; J9299

== ENCOUNTER 2023-02-21 08:30 | Oncology outpatient (recurring) (ONCR) | payer OTHER, SELFPAY ==
[2023-02-21 09:17] LABS: Basophils % 0.5 %; Eosinophils # 0.2 10^3/uL (0.0-0.8); Eosinophils % 2.7 %; Hematocrit 42.2 % (42.0-52.0); Hemoglobin 13.9 g/dL (11.7-16.6); Lymphocytes # 0.4 10^3/uL (0.8-4.8); Lymphocytes % 5.5 %; Mean Corpuscular HGB Conc 32.9 g/dL (30.0-36.0); Mean Corpuscular Hemoglobin 33.7 pg (28.0-34.0); Mean Corpuscular Volume 102.2 fl (80-94); Mean Platelet Volume 9.9 fL (7.4-10.4); Monocytes # 0.8 10^3/uL (0.2-0.9); Monocytes % 11.1 %; Neutrophils # 5.93 10^3/uL (1.8-7.7); Neutrophils % 80.1 %; Nucleated Red Blood Cells % 0 %; Platelet Count 184 10^3/cmm (130-400); Red Blood Count 4.13 10^6/uL (4.1-5.3); Red Cell Distribution Width 14.7 % (12.1-15.1); White Blood Count 7.4 10^3/uL (4.0-10.0)
[2023-02-21 09:50] LABS: Alanine Aminotransferase 16 U/L (0-41); Albumin Level 3.8 g/dL (3.5-5.2); Alkaline Phosphatase 119 U/L (40-130); Anion Gap 11.3 (5-19); Aspartate Amino Transferase 20 U/L (0-40); Blood Urea Nitrogen 22 mg/dL (8-23); Calcium 8.7 mg/dL (8.5-10.5); Carbon Dioxide 27 mmol/L (22-29); Chloride 101 mmol/L (98-107); Globulin 2.8 g/dL (1.3-4.6); Glucose 127 mg/dL (65-115); Osmolality Calculated 285 mOsm/kg (285-295); Potassium 4.3 mmol/L (3.5-5.1); Sodium 135 mmol/L (136-145); Thyroid Stimulating Hormone 1.93 uIU/mL (0.27-4.20); Total Bilirubin 0.6 mg/dL (0.15-1.2); Total Protein 6.6 g/dL (6.6-8.7)
[2023-02-21] MEDS: nivolumab 240 MG in sodium chloride 0.9% 250 ML 548 MG IV (11:15)
[2023-02-21 12:13] VITALS: BP 97/57; PULSE 61; TEMP 35.9; O2SAT 96
== END 2023-02-21 23:59 | disposition home or self-care (01) ==
PROVIDERS: Nurse Practitioner Family; PCP Emergency Medicine Emergency Medical Services; Visit Provider Internal Medicine Hematology & Oncology
DX: Z51.12 Encounter for antineoplastic immunotherapy (principal); C15.5 Malignant neoplasm of lower third of esophagus; R13.14 Dysphagia, pharyngoesophageal phase; R59.0 Localized enlarged lymph nodes; R20.2 Paresthesia of skin; Z79.899 Other long term (current) drug therapy; Z87.891 Personal history of nicotine dependence
CPT/HCPCS: 80053; 84443; 85025; 96375; 96413; 99214; J1642; J7050; J9299

== ENCOUNTER 2023-03-21 07:30 | Oncology outpatient (recurring) (ONCR) | payer OTHER, SELFPAY ==
[2023-03-07 07:18] VITALS: BP 114/73; PULSE 94; RESP 18; TEMP 36; O2SAT 100
[2023-03-07 07:29] LABS: Basophils % 0.5 %; Eosinophils # 0.2 10^3/uL (0.0-0.8); Hematocrit 41.7 % (42.0-52.0); Hemoglobin 13.7 g/dL (11.7-16.6); Lymphocytes # 0.5 10^3/uL (0.8-4.8); Lymphocytes % 6.2 %; Mean Corpuscular HGB Conc 32.9 g/dL (30.0-36.0); Mean Corpuscular Hemoglobin 33.1 pg (28.0-34.0); Mean Corpuscular Volume 100.7 fl (80-94); Mean Platelet Volume 9.8 fL (7.4-10.4); Monocytes # 0.7 10^3/uL (0.2-0.9); Neutrophils # 5.84 10^3/uL (1.8-7.7); Nucleated Red Blood Cells % 0 %; Platelet Count 197 10^3/cmm (130-400); Red Blood Count 4.14 10^6/uL (4.1-5.3); Red Cell Distribution Width 14.1 % (12.1-15.1); White Blood Count 7.3 10^3/uL (4.0-10.0)
[2023-03-07 08:06] LABS: Alanine Aminotransferase 17 U/L (0-41); Albumin Level 3.9 g/dL (3.5-5.2); Alkaline Phosphatase 132 U/L (40-130); Anion Gap 16.5 (5-19); Aspartate Amino Transferase 22 U/L (0-40); Blood Urea Nitrogen 18 mg/dL (8-23); Calcium 9.3 mg/dL (8.5-10.5); Carbon Dioxide 25 mmol/L (22-29); Chloride 98 mmol/L (98-107); Globulin 2.7 g/dL (1.3-4.6); Glucose 147 mg/dL (65-115); Osmolality Calculated 285 mOsm/kg (285-295); Potassium 4.5 mmol/L (3.5-5.1); Sodium 135 mmol/L (136-145); Thyroid Stimulating Hormone 1.96 uIU/mL (0.27-4.20); Total Bilirubin 0.6 mg/dL (0.15-1.2); Total Protein 6.6 g/dL (6.6-8.7)
[2023-03-07 09:20] VITALS: BP 122/62; PULSE 68; RESP 16; TEMP 36.2; O2SAT 97
[2023-03-07] MEDS: nivolumab 240 MG in sodium chloride 0.9% 250 ML 548 MG IV (10:19)
[2023-03-07 11:00] VITALS: BP 115/58; PULSE 50; RESP 16; TEMP 36; O2SAT 96
[2023-03-21 07:16] VITALS: BP 122/68; PULSE 94; RESP 16; TEMP 35.7; O2SAT 99
[2023-03-21 07:51] LABS: Basophils % 0.4 %; Eosinophils # 0.2 10^3/uL (0.0-0.8); Eosinophils % 2.1 %; Hematocrit 42.2 % (42.0-52.0); Hemoglobin 13.7 g/dL (11.7-16.6); Lymphocytes # 0.4 10^3/uL (0.8-4.8); Lymphocytes % 5.9 %; Mean Corpuscular HGB Conc 32.5 g/dL (30.0-36.0); Mean Corpuscular Hemoglobin 32.9 pg (28.0-34.0); Mean Corpuscular Volume 101.2 fl (80-94); Mean Platelet Volume 10.4 fL (7.4-10.4); Monocytes # 0.8 10^3/uL (0.2-0.9); Monocytes % 10.1 %; Neutrophils # 6.08 10^3/uL (1.8-7.7); Neutrophils % 81.2 %; Nucleated Red Blood Cells % 0 %; Platelet Count 192 10^3/cmm (130-400); Red Blood Count 4.17 10^6/uL (4.1-5.3); Red Cell Distribution Width 13.9 % (12.1-15.1); White Blood Count 7.5 10^3/uL (4.0-10.0)
[2023-03-21 08:02] LABS: Alanine Aminotransferase 20 U/L (0-41); Albumin Level 3.8 g/dL (3.5-5.2); Alkaline Phosphatase 137 U/L (40-130); Anion Gap 15.2 (5-19); Aspartate Amino Transferase 24 U/L (0-40); Blood Urea Nitrogen 15 mg/dL (8-23); Calcium 8.9 mg/dL (8.5-10.5); Carbon Dioxide 26 mmol/L (22-29); Chloride 98 mmol/L (98-107); Globulin 2.8 g/dL (1.3-4.6); Glucose 148 mg/dL (65-115); Osmolality Calculated 284 mOsm/kg (285-295); Potassium 4.2 mmol/L (3.5-5.1); Sodium 135 mmol/L (136-145); Thyroid Stimulating Hormone 1.95 uIU/mL (0.27-4.20); Total Bilirubin 0.6 mg/dL (0.15-1.2); Total Protein 6.6 g/dL (6.6-8.7)
[2023-03-21] MEDS: sodium chloride 0.9% 250 ML 75 ML IV (10:14)
[2023-03-21] MEDS: nivolumab 240 MG in sodium chloride 0.9% 250 ML 548 MG IV (10:14)
[2023-03-21 11:10] VITALS: BP 118/62; PULSE 66; TEMP 36.5; O2SAT 96
== END 2023-03-21 23:59 | disposition home or self-care (01) ==
PROVIDERS: Nurse Practitioner Family; PCP Emergency Medicine Emergency Medical Services; Visit Provider Internal Medicine Hematology & Oncology
DX: Z51.12 Encounter for antineoplastic immunotherapy (principal); C15.5 Malignant neoplasm of lower third of esophagus; R13.14 Dysphagia, pharyngoesophageal phase; R59.1 Generalized enlarged lymph nodes; E87.1 Hypo-osmolality and hyponatremia; Z79.899 Other long term (current) drug therapy; Z87.891 Personal history of nicotine dependence
CPT/HCPCS: 80053; 84443; 85025; 96413; 99214; J1642; J7050; J9299

== ENCOUNTER 2023-04-04 07:07 | Oncology outpatient (recurring) (ONCR) | payer OTHER, SELFPAY ==
[2023-04-04 07:32] VITALS: BP 111/62; PULSE 101; RESP 18; TEMP 36; O2SAT 98
[2023-04-04 07:54] LABS: Basophils % 0.5 %; Eosinophils # 0.1 10^3/uL (0.0-0.8); Eosinophils % 1.6 %; Hemoglobin 13.6 g/dL (11.7-16.6); Lymphocytes # 0.4 10^3/uL (0.8-4.8); Mean Corpuscular HGB Conc 32.4 g/dL (30.0-36.0); Mean Corpuscular Hemoglobin 32.5 pg (28.0-34.0); Mean Corpuscular Volume 100.5 fl (80-94); Mean Platelet Volume 10.2 fL (7.4-10.4); Monocytes # 0.8 10^3/uL (0.2-0.9); Monocytes % 9.8 %; Neutrophils # 6.67 10^3/uL (1.8-7.7); Neutrophils % 82.7 %; Nucleated Red Blood Cells % 0 %; Platelet Count 197 10^3/cmm (130-400); Red Blood Count 4.18 10^6/uL (4.1-5.3); Red Cell Distribution Width 13.8 % (12.1-15.1); White Blood Count 8.1 10^3/uL (4.0-10.0)
[2023-04-04 08:15] LABS: Alanine Aminotransferase 18 U/L (0-41); Albumin Level 3.7 g/dL (3.5-5.2); Alkaline Phosphatase 123 U/L (40-130); Anion Gap 15.2 (5-19); Aspartate Amino Transferase 22 U/L (0-40); Blood Urea Nitrogen 22 mg/dL (8-23); Calcium 8.9 mg/dL (8.5-10.5); Carbon Dioxide 25 mmol/L (22-29); Chloride 96 mmol/L (98-107); Globulin 2.9 g/dL (1.3-4.6); Glucose 160 mg/dL (65-115); Osmolality Calculated 281 mOsm/kg (285-295); Potassium 4.2 mmol/L (3.5-5.1); Sodium 132 mmol/L (136-145); Thyroid Stimulating Hormone 1.72 uIU/mL (0.27-4.20); Total Bilirubin 0.6 mg/dL (0.15-1.2); Total Protein 6.6 g/dL (6.6-8.7)
== END 2023-04-23 23:59 | disposition home or self-care (01) ==
PROVIDERS: Nurse Practitioner Family; PCP Emergency Medicine Emergency Medical Services; Visit Provider Internal Medicine Hematology & Oncology
DX: C15.5 Malignant neoplasm of lower third of esophagus; R06.00 Dyspnea, unspecified; R06.02 Shortness of breath; Z79.899 Other long term (current) drug therapy; Z87.891 Personal history of nicotine dependence; Z51.12 Encounter for antineoplastic immunotherapy
CPT/HCPCS: 80053; 84443; 85025; 99214; J1642

== ENCOUNTER → 2023-04-12 08:34 | Outpatient (BNVA) | payer OTHER, SELFPAY | PROVIDERS: PCP Emergency Medicine Emergency Medical Services; Visit Provider Internal Medicine Pulmonary Disease | DX: J84.9 Interstitial pulmonary disease, unspecified (principal); C15.5 Malignant neoplasm of lower third of esophagus; R91.8 Other nonspecific abnormal finding of lung field; Z87.891 Personal history of nicotine dependence; Z92.21 Personal history of antineoplastic chemotherapy | CPT/HCPCS: 99204 ==

== ENCOUNTER 2023-04-26 15:12 | Outpatient (CLI) | payer OTHER, SELFPAY ==
--- NOTE | 2023-04-26 15:30 | CT_ITS ---
WS: [id number] CT CHEST CT-HIGH RESOLUTION, NONCONTRAST. HISTORY: Interstitial lung disease. Technique: High-resolution chest CT is performed in inspiration, expiration, supine and prone positio michael. All CT scans at [facility] use at least one of these dose optimization techniques: automated exposure control; mA and/or kV adjustment per patient size (includes targeted exams where dose is mat ched to clinical indication); or iterative reconstruction. DLP: 919.98 mGy.cm COMPARISON: 04/10/2022 Findings: Chronic emphysematous changes. There are scattered irregular opacifications noted bilateral ly but greatest throughout the RIGHT lung. These are not well-defined and multi lobar. Decreased lung volumes due to expiration. Minimal improvement in aeration with prone positioning. There are a few cystic air spaces at the lung bases, LEFT leg greater than RIGHT. No significant laye ring. This could represent early honeycombing or cystic disease related to emphysema. Mild atherosclerosis aorta. Normal size pulmonary artery. Moderate cardiomegaly. Heavy calcification in the mus[place]ee coronary arteries. Right-sided Mediport. Mild distal esophageal wall thickening. Patien t has history of known esophageal cancer. Multiple cysts scattered throughout the liver. Cortical thi nning upper pole RIGHT kidney. Advanced thoracic spondylitic changes throughout the spine. CT/CT chest wo con [id number] Impression: 1. Multifocal areas of pulmonary opacification. These changes are new since th e CT of 04/10/2022 and also the PET/CT of 10/21/2022. Consider immunotherapy ther apy pneumonitis as the patient has a history of esophageal cancer treatment. 2. Mild cardiomegaly. 3. No definite honeycombing. There are a few cystic areas at the lung bases bu t not a typical distribution for honeycombing. May be early honeycombing versus cyst related to emphysema. 4. Patient has known distal esophageal cancer status post treatment. 5. Hepatic cysts.
== END 2023-04-26 15:13 | disposition home or self-care (01) ==
LOC: RAD 15:15
PROVIDERS: PCP Emergency Medicine Emergency Medical Services; Visit Provider Internal Medicine Pulmonary Disease
DX: J84.9 Interstitial pulmonary disease, unspecified (principal); I51.7 Cardiomegaly; K76.89 Other specified diseases of liver
CPT/HCPCS: 71250

== ENCOUNTER → 2023-06-08 10:52 | Outpatient (BNVA) | payer OTHER, SELFPAY | PROVIDERS: PCP Emergency Medicine Emergency Medical Services; Visit Provider Internal Medicine Pulmonary Disease | DX: J44.9 Chronic obstructive pulmonary disease, unspecified (principal); J18.9 Pneumonia, unspecified organism; C15.5 Malignant neoplasm of lower third of esophagus; Z87.891 Personal history of nicotine dependence; Z95.9 Presence of cardiac and vascular implant and graft, unspecified | CPT/HCPCS: 99214 ==

== ENCOUNTER 2023-06-20 07:57 | Outpatient (CLI) | payer OTHER, SELFPAY ==
[2023-06-20 12:54] VITALS: BP 137/80
== END 2023-06-20 07:58 | disposition home or self-care (01) ==
LOC: RT 07:57
PROVIDERS: PCP Emergency Medicine Emergency Medical Services; Visit Provider Internal Medicine Pulmonary Disease
DX: R06.02 Shortness of breath (principal)
CPT/HCPCS: 94010; 94618; 94726; 94729

== ENCOUNTER 2023-07-03 12:00 | Outpatient (CLI) | payer OTHER, SELFPAY ==
[2023-07-03] MEDS: iohexol 350 mg/mL 500 mL Btl (per mL) PO (12:52)
--- NOTE | 2023-07-03 13:30 | CT_ITS ---
WS: [id number] CT ABDOMEN AND PELVIS WITH CONTRAST HISTORY: Follow up esophageal cancer TECHNIQUE: Imaging performed of the abdomen and pelvis with IV contrast. Single phase imaging of the abdomen. Coronal and sagittal reformats are submitted. All CT scans at [facility] use at [facility] one of these dose optimization techniques: automated exposure control; mA and/or kV adjustment per patient size (includes targeted exams where dose is matched to clinical indication); or iterative re construction. IV CONTRAST: Omnipaque 350; 100 mL IV. Oral contrast: Yes. DLP: 317.91 mGy.cm COMPARISON: 04/10/2022, PET/CT 10/21/2022 Lower thorax: Mild dependent changes and early fibrotic changes are noted at the lung bases. Heart is normal size. Partially visualized gastric esophageal pull-through. There is oral contrast remaining in the distal pull-through. Liver/biliary system: Normal size liver. There are numerous small scattered hepatic cysts of the live r. The largest with a maximum diameter of 7 mm. Normal portal vein. Gallbladder: Normal. No gallstones or wall thickening. No pericholecystic fluid. Pancreas: Diffuse atrophy. Spleen: Normal size spleen. No mass or infarct. Adrenal glands: Normal. Right kidney: Cortical thinning and scarring in the mid kidney is similar to prior studies. Vascular calcifications. No obstruction. Left kidney: Normal size kidney. 1.5 cm cyst upper pole. Nonobstructing calcification lower pole and vascular calcifications. Aorta: Moderate atherosclerosis with no aneurysm. Lymphadenopathy: None. Free fluid: None. GI tract: Stomach is nondistended. No small bowel obstruction. Mild constipation. Focally dilated loo p of GI tract in the central abdomen. This may be redundant cecum which is displaced to the LEFT midl ine. There is no obstruction. There is mild narrowing of the lumen just distal to the dilated loop of GI tract. No focal mass is identified. This may be secondary to adhesions. The appendix is not defin itely identified. Numerous diverticula in the distal colon. No acute diverticulitis and no obstructio n. Abdominal wall: Unremarkable abdominal wall. No hernia. Pelvis: No free fluid or adenopathy within the pelvis. Moderately distended urinary bladder. Prostate gland encroaches into the base of the bladder. Bones: Unremarkable. IMPRESSION: 1. No metastatic disease to the abdomen or pelvis. 2. Hepatic cysts. 3. No ascites or adenopathy. 4. Focally dilated loop of GI tract in the central abdomen. Suspect this is a displaced cecum toward s the midline. There is no obstructive pattern at this time. There is narrowing of the lumen just dis jailyn to the area of dilatation. If patient has progressive symptoms of gastrointestinal obstruction re commend further evaluation by CT or endoscopy. There may be adhesions or an occult neoplasm causing t he luminal narrowing. There is a mild component of stenosis due to the more proximal dilatation.
[2023-07-03 13:35] LABS: Blood Urea Nitrogen 16 mg/dL (8-23)
[2023-07-03] MEDS: iohexol 350 mg/mL 500 mL Btl (per mL) IV (13:44)
== END 2023-07-03 12:01 | disposition home or self-care (01) ==
LOC: RAD 12:00
PROVIDERS: PCP Emergency Medicine Emergency Medical Services; Visit Provider Internal Medicine Medical Oncology
DX: C15.5 Malignant neoplasm of lower third of esophagus (principal); R93.3 Abnormal findings on diagnostic imaging of other parts of digestive tract
CPT/HCPCS: 74177; 82565; 84520; Q9967

== ENCOUNTER 2023-07-16 11:56 | Oncology outpatient (recurring) (ONCR) | payer OTHER, SELFPAY ==
[2023-07-16 12:15] VITALS: BP 108/54; PULSE 80; RESP 16; TEMP 36.1; O2SAT 95
[2023-07-16 12:39] LABS: Basophils # 0.1 10^3/uL (0.0-0.1); Basophils % 0.6 %; Eosinophils # 0.1 10^3/uL (0.0-0.8); Hematocrit 41.8 % (37-53); Lymphocytes # 0.5 10^3/uL (0.8-4.8); Lymphocytes % 6.1 %; Mean Corpuscular Hemoglobin 33.3 pg (27-33); Mean Platelet Volume 10.1 fL (7.4-10.4); Monocytes # 0.9 10^3/uL (0.2-0.9); Monocytes % 10.7 %; Neutrophils # 6.76 10^3/uL (1.8-7.7); Neutrophils % 81.2 %; Nucleated Red Blood Cells % 0 %; Platelet Count 194 10^3/cmm (157-399); Red Blood Count 4.14 10^6/uL (3.85-5.65); Red Cell Distribution Width 15.5 % (12.1-15.1); White Blood Count 8.32 10^3/uL (3.29-11.43)
[2023-07-16 12:57] LABS: Alanine Aminotransferase 20 U/L (0-41); Alkaline Phosphatase 125 U/L (40-130); Aspartate Amino Transferase 28 U/L (0-40); Blood Urea Nitrogen 22 mg/dL (8-23); Calcium 9.3 mg/dL (8.5-10.5); Carbon Dioxide 26 mmol/L (22-29); Chloride 96 mmol/L (98-107); Globulin 2.6 g/dL (1.3-4.6); Glucose 79 mg/dL (65-115); Osmolality Calculated 278 mOsm/kg (285-295); Sodium 133 mmol/L (136-145); Total Bilirubin 0.5 mg/dL (0.15-1.2); Total Protein 6.6 g/dL (6.6-8.7)
[2023-07-16 12:59] LABS: Anion Gap 15.5 (5-19); Potassium 4.5 mmol/L (3.5-5.1)
== END 2023-07-24 23:59 | disposition home or self-care (01) ==
PROVIDERS: PCP Emergency Medicine Emergency Medical Services; Visit Provider Internal Medicine Medical Oncology
DX: C15.5 Malignant neoplasm of lower third of esophagus; R13.14 Dysphagia, pharyngoesophageal phase; R59.0 Localized enlarged lymph nodes; Z79.899 Other long term (current) drug therapy; Z87.891 Personal history of nicotine dependence
CPT/HCPCS: 36591; 80053; 85025; 99214; J1642

== ENCOUNTER → 2023-07-18 13:53 | Outpatient (BNVA) | payer OTHER, SELFPAY | PROVIDERS: PCP Emergency Medicine Emergency Medical Services; Visit Provider Otolaryngology | DX: E07.9 Disorder of thyroid, unspecified (principal); R49.0 Dysphonia | CPT/HCPCS: 31575; 99204 ==

== ENCOUNTER 2023-08-07 13:35 | Oncology outpatient (recurring) (ONCR) | payer OTHER, SELFPAY ==
[2023-08-07 14:06] VITALS: BP 102/64; PULSE 97; RESP 16; TEMP 36.8; O2SAT 97
== END 2023-08-23 23:59 | disposition home or self-care (01) ==
LOC: ONCMED 13:35
PROVIDERS: PCP Emergency Medicine Emergency Medical Services; Visit Provider Internal Medicine Medical Oncology
DX: Z45.2 Encounter for adjustment and management of vascular access device
CPT/HCPCS: 96523; J1642

== ENCOUNTER → 2023-08-13 13:43 | Outpatient (BNVA) | payer OTHER, SELFPAY | PROVIDERS: PCP Emergency Medicine Emergency Medical Services; Visit Provider Internal Medicine Pulmonary Disease | DX: J44.9 Chronic obstructive pulmonary disease, unspecified (principal); J18.9 Pneumonia, unspecified organism; C15.5 Malignant neoplasm of lower third of esophagus; Z87.891 Personal history of nicotine dependence | CPT/HCPCS: 99214 ==

== ENCOUNTER 2023-08-15 09:10 | Outpatient (CLI) | payer OTHER, SELFPAY ==
--- NOTE | 2023-08-15 10:00 | US_ITS ---
WS: [id number] THYROID ULTRASOUND HISTORY: thyroid COMPARISON: None available. Right lobe: 1.5 cm x 1.0 cm x 4.2 cm (w x ap x l). Volume: 3.2 cm3. Normal size and echotexture. No significant are dominant nodules are present. Left lobe: 1.3 cm x 1.2 cm x 3.7 cm (w x ap x l). Volume: 2.9 cm3. Normal size and echotexture. No significant or dominant nodules are present. There are a few small, s ubcentimeter colloid cysts. Isthmus: 0.2 cm. IMPRESSION: Normal thyroid ultrasound.
== END 2023-08-15 09:11 | disposition home or self-care (01) ==
LOC: RAD 09:10
PROVIDERS: PCP Emergency Medicine Emergency Medical Services; Visit Provider Otolaryngology
DX: E07.9 Disorder of thyroid, unspecified (principal); R49.0 Dysphonia
CPT/HCPCS: 76536

== ENCOUNTER → 2023-08-29 10:24 | Outpatient (BNVA) | payer OTHER, SELFPAY | PROVIDERS: PCP Emergency Medicine Emergency Medical Services; Referring Provider Internal Medicine Hematology & Oncology; Visit Provider Psychiatry & Neurology Neurology | DX: G62.9 Polyneuropathy, unspecified (principal) | CPT/HCPCS: 99203 ==

== ENCOUNTER 2023-09-04 14:06 | Oncology outpatient (recurring) (ONCR) | payer OTHER, SELFPAY ==
[2023-09-04 14:54] VITALS: BP 110/61; PULSE 87; RESP 16; TEMP 36.6; O2SAT 94
[2023-09-04 15:36] LABS: Basophils # 0.1 10^3/uL (0.0-0.1); Basophils % 0.9 %; Eosinophils # 0.2 10^3/uL (0.0-0.8); Eosinophils % 2.8 %; Lymphocytes # 0.8 10^3/uL (0.8-4.8); Lymphocytes % 13.3 %; Mean Corpuscular HGB Conc 33.6 g/dL (30-55); Mean Corpuscular Hemoglobin 33.9 pg (27-33); Mean Corpuscular Volume 100.8 fl (82-101); Mean Platelet Volume 10.3 fL (7.4-10.4); Monocytes # 0.8 10^3/uL (0.2-0.9); Neutrophils # 4.05 10^3/uL (1.8-7.7); Neutrophils % 69.8 %; Nucleated Red Blood Cells % 0 %; Platelet Count 168 10^3/cmm (157-399); Red Blood Count 3.87 10^6/uL (3.85-5.65); Red Cell Distribution Width 14.4 % (12.1-15.1); White Blood Count 5.79 10^3/uL (3.29-11.43)
[2023-09-04 15:54] LABS: Alanine Aminotransferase 17 U/L (0-41); Albumin Level 3.9 g/dL (3.5-5.2); Alkaline Phosphatase 119 U/L (40-130); Aspartate Amino Transferase 30 U/L (0-40); Blood Urea Nitrogen 16 mg/dL (8-23); Calcium 8.9 mg/dL (8.5-10.5); Carbon Dioxide 25 mmol/L (22-29); Chloride 97 mmol/L (98-107); Globulin 2.4 g/dL (1.3-4.6); Glucose 78 mg/dL (65-115); Osmolality Calculated 276 mOsm/kg (285-295); Sodium 133 mmol/L (136-145); Total Bilirubin 0.4 mg/dL (0.15-1.2); Total Protein 6.3 g/dL (6.6-8.7)
[2023-09-04 16:10] LABS: Creatinine Clr Calc Pharmacy 60.7215
[2023-09-04 16:11] LABS: Anion Gap 15.6 (5-19); Potassium 4.6 mmol/L (3.5-5.1)
[2023-09-05 10:03] LABS: 25 Hydroxy Vitamin D 59 ng/mL (30-100); Vitamin B12 457 pg/mL (232-1245)
== END 2023-09-23 23:59 | disposition home or self-care (01) ==
LOC: ONCMED 14:06
PROVIDERS: Internal Medicine Medical Oncology; Psychiatry & Neurology Neurology; PCP Emergency Medicine Emergency Medical Services; Visit Provider Internal Medicine Medical Oncology
DX: C15.5 Malignant neoplasm of lower third of esophagus (principal); K90.9 Intestinal malabsorption, unspecified; E55.9 Vitamin D deficiency, unspecified
CPT/HCPCS: 36591; 80053; 82306; 82607; 85025; J1642

== ENCOUNTER → 2023-09-11 08:38 | Outpatient (BNVA) | payer OTHER, SELFPAY | PROVIDERS: PCP Emergency Medicine Emergency Medical Services; Visit Provider Psychiatry & Neurology Neurology | DX: G62.9 Polyneuropathy, unspecified (principal); R20.0 Anesthesia of skin; R20.2 Paresthesia of skin | CPT/HCPCS: 95910 ==

== ENCOUNTER 2023-09-27 09:03 | Outpatient (CLI) | payer OTHER, SELFPAY ==
[2023-09-27 10:24] LABS: Folate Level > 20.0 ng/mL (4.5-32.2)
[2023-09-30 13:59] LABS: Methylmalonic Acid 155 nmol/L (87-318)
== END 2023-09-27 09:04 | disposition home or self-care (01) ==
LOC: LAB 09:04
PROVIDERS: PCP Emergency Medicine Emergency Medical Services; Visit Provider Psychiatry & Neurology Neurology
DX: G62.9 Polyneuropathy, unspecified (principal)
CPT/HCPCS: 36415; 82746; 83921

== ENCOUNTER → 2023-10-17 14:06 | Outpatient (BNVA) | payer OTHER, SELFPAY | PROVIDERS: PCP Emergency Medicine Emergency Medical Services; Visit Provider Internal Medicine | DX: C15.5 Malignant neoplasm of lower third of esophagus (principal); I25.10 Atherosclerotic heart disease of native coronary artery without angina pectoris; K92.0 Hematemesis; K92.2 Gastrointestinal hemorrhage, unspecified; I10 Essential (primary) hypertension; E11.51 Type 2 diabetes mellitus with diabetic peripheral angiopathy without gangrene; Z79.84 Long term (current) use of oral hypoglycemic drugs | CPT/HCPCS: 99214 ==

== ENCOUNTER 2023-10-18 11:52 | Oncology outpatient (recurring) (ONCR) | payer OTHER, SELFPAY ==
[2023-10-18 13:21] LABS: Basophils % 0.6 %; Eosinophils # 0.1 10^3/uL (0.0-0.8); Eosinophils % 1.9 %; Hematocrit 40.2 % (37-53); Lymphocytes # 0.6 10^3/uL (0.8-4.8); Lymphocytes % 8.6 %; Mean Corpuscular HGB Conc 33.3 g/dL (30-55); Mean Platelet Volume 10.2 fL (7.4-10.4); Monocytes # 0.8 10^3/uL (0.2-0.9); Monocytes % 12.1 %; Neutrophils # 5.24 10^3/uL (1.8-7.7); Neutrophils % 76.5 %; Nucleated Red Blood Cells % 0 %; Platelet Count 195 10^3/cmm (157-399); Red Blood Count 3.94 10^6/uL (3.85-5.65); Red Cell Distribution Width 13.5 % (12.1-15.1); White Blood Count 6.85 10^3/uL (3.29-11.43)
[2023-10-18 13:31] LABS: Alanine Aminotransferase 14 U/L (0-41); Albumin Level 3.6 g/dL (3.5-5.2); Alkaline Phosphatase 129 U/L (40-130); Anion Gap 14.6 (5-19); Aspartate Amino Transferase 25 U/L (0-40); Blood Urea Nitrogen 17 mg/dL (8-23); Calcium 9.1 mg/dL (8.5-10.5); Carbon Dioxide 27 mmol/L (22-29); Chloride 96 mmol/L (98-107); Globulin 2.7 g/dL (1.3-4.6); Glucose 95 mg/dL (65-115); Osmolality Calculated 277 mOsm/kg (285-295); Potassium 4.6 mmol/L (3.5-5.1); Sodium 133 mmol/L (136-145); Total Bilirubin 0.4 mg/dL (0.15-1.2); Total Protein 6.3 g/dL (6.6-8.7)
== END 2023-10-24 23:59 | disposition home or self-care (01) ==
PROVIDERS: Nurse Practitioner Family; PCP Emergency Medicine Emergency Medical Services; Visit Provider Internal Medicine Medical Oncology
DX: C15.5 Malignant neoplasm of lower third of esophagus (principal); Z79.899 Other long term (current) drug therapy
CPT/HCPCS: 36591; 80053; 85025; 99214; J1642

== ENCOUNTER 2023-11-09 11:38 | Outpatient (CLI) | payer OTHER, SELFPAY ==
--- NOTE | 2023-11-09 11:46 | CT_ITS ---
WS: [id number] CT NECK TECHNIQUE: Contrast-enhanced CT of the neck with coronal and sagittal reformatted images. CLINICAL INFORMATION: NONTOXIC SINGLE THYROID NODULE. History of esophageal cancer. COMPARISON: Thyroid ultrasound 08/15/2023, PET CT 10/21/2022 DLP: 263.[address] scans at [facility] use at least one of these dose optimization techniques: automated e xposure control; mA and/or kV adjustment per patient size (includes targeted exams where dose is matc hed to clinical indication); or iterative reconstruction. FINDINGS: Prominent anterior hypertrophic changes RIGHT C7 with indentation on the upper thoracic esophagus at the thoracic inlet. Paranasal sinuses are well aerated. Mucosal thickening with polyps visualized in the anterior superio r nasal cavity. Mastoid air cells are well aerated. Normal posterior nasopharynx. Normal parapharynge al fat. Dental artifact degrades some images at the tongue base. Tongue base appears normal. No evide nce of supraglottic or glottic mass. Normal subglottic airway. Normal parotid glands. Normal submandi bular glands. Thyroid gland appears normal. No cervical lymphadenopathy. Advanced emphysematous doe es in the lung apices. Straightening of the normal cervical lordosis. Prior postoperative changes ACDF C5-6. Slight anteroli sthesis C3 on C4. Ankylosis in the cervical and upper thoracic spine. Moderate carotid bulb calcifica tion. Severe LEFT proximal ICA stenosis. Recommend further evaluation with CTA. IMPRESSION: 1. Moderate to LEFT proximal ICA stenosis. Recommend further evaluation with CTA. LEFT ICA remains p atent to the skull base. 2. Normal salivary glands. No evidence of supraglottic or glottic mass. Normal subglottic airway. Th yroid gland is normal. 3. No cervical lymphadenopathy. 4. Prominent anterior hypertrophic changes RIGHT C7 with indentation on the upper thoracic esophagus at the thoracic inlet. 5. Prior ACDF C5-6.
[2023-11-09] MEDS: iohexol 350 mg/mL 100 mL Btl IV (12:20)
== END 2023-11-09 11:39 | disposition home or self-care (01) ==
LOC: RAD 11:39
PROVIDERS: PCP Emergency Medicine Emergency Medical Services; Visit Provider Specialist
DX: E04.1 Nontoxic single thyroid nodule (principal); I65.22 Occlusion and stenosis of left carotid artery; Z98.1 Arthrodesis status
CPT/HCPCS: 70491; Q9967

== ENCOUNTER 2023-11-27 13:12 | Outpatient (CLI) | payer OTHER, SELFPAY ==
--- NOTE | 2023-11-27 14:00 | PETR_ITS ---
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 Then, PET images were obtained. Attenuation corrected images were constructed using the CT scan. Fused images of PET and CT were reviewed. The standardized uptake values (SUV) reported below are maximum values within a region of interest, expressed in gm/ml. Exam includes orbital meatal line to mid-thigh. Radiopharmaceutical: 11.63 mCi F-18 FDG (Fluorodeoxyglucose), IV. Time of imaging post radiopharmaceutical administration: 1 hour COMPARISON: [id number] 10/21/2022 12:47 PM FINDINGS: Brain: Visualized brain has normal physiologic uptake. Pharynx: No abnormal uptake. Larynx: No abnormal uptake. Lungs, pleura and trachea: Platelike area of scarring in the right middle lobe with low level FDG uptake with SUV max 1.8. Emphysematous changes in the lungs. Heart: Normal physiologic uptake. Mediastinal space: There is some FDG uptake within the distal esophagus with SUV max 4.9, previously 3.6. Liver: Similar low-density liver lesions. Gallbladder and bile ducts: Cholelithiasis. Pancreas: No abnormal uptake. Spleen: No abnormal uptake. Adrenal glands: No abnormal uptake. Kidneys and ureters: Small left renal cyst. Stomach and bowel: Colonic diverticulosis without evidence of diverticulitis. No bowel obstruction. Vasculature: Heavy burden of atherosclerotic plaque in the abdominal aorta and branch vessels. No aneurysm. Lymph nodes: Low level uptake within a mildly prominent right paratracheal lymph node with SUV max 2.2, previously 3.2. Uptake within a subcarinal lymph node now has SUV max 2.4, previously 4.4. Bones/joints: There is a low-density fluid collection about the right shoulder with some peripheral hypermetabolic activity with SUV max 3.5. Some mild uptake within the T2 vertebral body with SUV max 2.5 may be degenerative. ACDF hardware in the cervical spine. Soft tissues: No abnormal uptake in the visualized head, neck, chest, abdomen, pelvis, and extremities. [id number] IMPRESSION: 1. FDG uptake within the distal esophagus with SUV max 4.9 could reflect residual or recurrent neoplasm. 2. Low level uptake within mediastinal and hilar lymph nodes has decreased from prior PET. 3. There is a low-density fluid collection about the right shoulder with some peripheral hypermetabolic activity with SUV max 3.5, likely degenerative or inflammatory.
== END 2023-11-27 13:13 | disposition home or self-care (01) ==
LOC: RAD 13:12
PROVIDERS: PCP Emergency Medicine Emergency Medical Services; Visit Provider Nurse Practitioner Family
DX: C15.5 Malignant neoplasm of lower third of esophagus (principal)
CPT/HCPCS: 78815; A9552

== ENCOUNTER 2023-11-29 14:04 | Outpatient (CLI) | payer OTHER, SELFPAY ==
--- NOTE | 2023-11-29 14:10 | CT_ITS ---
WS: [id number] CTA NECK TECHNIQUE: Contrast enhanced CTA of the neck with coronal and sagittal reformatted images and maximum intensity projection (MIP) images. NASCET criteria utilized. CLINICAL INFORMATION: OCCLUSION STENOSIS OF L CAROTID ARTERY COMPARISON: CT neck 11/09/2023 DLP: 263.[address] scans at [facility] use at least one of these dose optimization techniques: automated e xposure control; mA and/or kV adjustment per patient size (includes targeted exams where dose is matc hed to clinical indication); or iterative reconstruction. FINDINGS: RIGHT: RIGHT common carotid artery is patent. Mild calcified atheromatous plaque RIGHT carotid bulb e xtending into the ICA measuring approximately 34%. LEFT: LEFT common carotid artery is patent. Densely calcified atheromatous plaque LEFT carotid bulb e xtending to the ICA. Stenosis LEFT ICA measures approximately 50 to 55% LEFT ICA remains patent to th e skull base. Mild cavernous carotid calcification. Small LEFT A1 segment. Proximal lower [place] appears patent . Proximal MCA vessels appear patent. RIGHT dominant vertebral artery. Smaller but patent LEFT vertebral artery. Basilar artery is patent. Normal vascularity to the [employer] territory where visualized. Advanced emphysematous changes in the lung apices. Grade 1 anterolisthesis C3 on C4. ACDF C5-6. IMPRESSION: 1. Irregular calcified atheromatous plaque LEFT proximal ICA with stenosis measuring approximately 5 0 to 55%. LEFT ICA remains patent to the skull base. 2. No significant RIGHT ICA stenosis. 3. RIGHT dominant vertebral artery. Small patent LEFT vertebral artery is patent to the basilar andrey ry. 4. Proximal visualized lower [place] appears normal. 5. No other acute findings.
[2023-11-29] MEDS: iohexol 350 mg/mL 500 mL Btl (per mL) IV (14:50)
== END 2023-11-29 14:05 | disposition home or self-care (01) ==
LOC: RAD 14:05
PROVIDERS: PCP Emergency Medicine Emergency Medical Services; Visit Provider Specialist
DX: I65.22 Occlusion and stenosis of left carotid artery (principal)
CPT/HCPCS: 70498; Q9967

== ENCOUNTER 2023-12-18 08:21 | Oncology outpatient (recurring) (ONCR) | payer OTHER, SELFPAY ==
[2023-12-18 08:40] LABS: Basophils % 0.4 %; Eosinophils # 0.1 10^3/uL (0.0-0.8); Eosinophils % 1.7 %; Hematocrit 41.1 % (37-53); Lymphocytes # 0.5 10^3/uL (0.8-4.8); Lymphocytes % 7.5 %; Mean Corpuscular HGB Conc 33.3 g/dL (30-55); Mean Corpuscular Hemoglobin 34.5 pg (27-33); Mean Corpuscular Volume 103.5 fl (82-101); Mean Platelet Volume 10.5 fL (7.4-10.4); Monocytes # 0.6 10^3/uL (0.2-0.9); Monocytes % 8.9 %; Neutrophils # 5.73 10^3/uL (1.8-7.7); Neutrophils % 81.4 %; Nucleated Red Blood Cells % 0 %; Platelet Count 178 10^3/cmm (157-399); Red Blood Count 3.97 10^6/uL (3.85-5.65); Red Cell Distribution Width 13.9 % (12.1-15.1); White Blood Count 7.05 10^3/uL (3.29-11.43)
[2023-12-18 08:51] LABS: Alanine Aminotransferase 12 U/L (0-41); Albumin Level 3.8 g/dL (3.5-5.2); Alkaline Phosphatase 123 U/L (40-130); Anion Gap 14.7 (5-19); Aspartate Amino Transferase 22 U/L (0-40); Blood Urea Nitrogen 14 mg/dL (8-23); Calcium 8.6 mg/dL (8.5-10.5); Carbon Dioxide 27 mmol/L (22-29); Chloride 99 mmol/L (98-107); Globulin 2.7 g/dL (1.3-4.6); Glucose 157 mg/dL (65-115); Osmolality Calculated 286 mOsm/kg (285-295); Potassium 4.7 mmol/L (3.5-5.1); Sodium 136 mmol/L (136-145); Total Bilirubin 0.6 mg/dL (0.15-1.2); Total Protein 6.5 g/dL (6.6-8.7)
== END 2023-12-23 23:59 | disposition home or self-care (01) ==
PROVIDERS: Nurse Practitioner Family; PCP Emergency Medicine Emergency Medical Services; Visit Provider Internal Medicine Medical Oncology
DX: C15.5 Malignant neoplasm of lower third of esophagus (principal); Z79.899 Other long term (current) drug therapy; Z95.828 Presence of other vascular implants and grafts
CPT/HCPCS: 36591; 80053; 85025; 99215; J1642

== ENCOUNTER → 2023-12-26 10:33 | Outpatient (BNVA) | payer OTHER, SELFPAY | PROVIDERS: PCP Emergency Medicine Emergency Medical Services; Referring Provider Internal Medicine; Visit Provider Surgery | DX: K21.9 Gastro-esophageal reflux disease without esophagitis (principal); C80.1 Malignant (primary) neoplasm, unspecified | CPT/HCPCS: 99203; 99213 ==

== ENCOUNTER → 2024-02-04 15:22 | Outpatient (BNVA) | payer OTHER, SELFPAY | PROVIDERS: PCP Emergency Medicine Emergency Medical Services; Visit Provider Psychiatry & Neurology Neurology | DX: G62.9 Polyneuropathy, unspecified (principal) | CPT/HCPCS: 99212 ==

== ENCOUNTER → 2024-02-13 12:30 | Outpatient (BNVA) | payer OTHER, SELFPAY | PROVIDERS: PCP Emergency Medicine Emergency Medical Services; Visit Provider Internal Medicine Pulmonary Disease | DX: J18.9 Pneumonia, unspecified organism (principal); R06.02 Shortness of breath; J44.9 Chronic obstructive pulmonary disease, unspecified; C15.5 Malignant neoplasm of lower third of esophagus | CPT/HCPCS: 99214 ==

== ENCOUNTER 2024-02-26 12:43 | Outpatient (CLI) | payer OTHER, SELFPAY ==
[2024-02-26] MEDS: iohexol 350 mg/mL 500 mL Btl (per mL) PO (12:54)
--- NOTE | 2024-02-26 14:00 | CT_ITS ---
WS: [id number] CT CHEST, ABDOMEN AND PELVIS WITH CONTRAST. HISTORY: Follow-up esophageal cancer. TECHNIQUE: Contiguous 5 mm axial imaging performed through the chest, abdomen and pelvis with IV cont rast, oral contrast has been provided. Coronal and sagittal reformats chest. Coronal and sagittal ref ormats through the abdomen and pelvis. All CT scans at [facility] use at least one of these d ose optimization techniques: automated exposure control; mA and/or kV adjustment per patient size (in cludes targeted exams where dose is matched to clinical indication); or iterative reconstruction. CONTRAST: Omnipaque 350; 100 mL IV. DLP: 611.43 mGy.cm COMPARISON: 07/03/2023, 04/26/2023, PET/CT 11/27/[address]: Advanced centrilobular emphysema. Mild interstitial thickening and changes of honeycombing noted at the LEFT lung base. Overall there has been improvement in aeration since 04/26/2023. No mass o r pneumonia. Heart size is enlarged. Heavy vascular calcifications in the coronary arteries. LEFT sub clavian defibrillator. Normal size aorta. Pulmonary artery size is normal. Mediastinal and hilar lymp h nodes are mildly prominent. These lymph nodes are very slightly enlarged and similar to the PET/CT of 11/27/2023. Lymph nodes have slightly increased in size since 04/26/2023 and 04/10/2022. Oral contrast is present throughout a majority of the esophagus. The esophagus is mildly dilated. The re is circumferential wall thickening of the distal esophagus extending into the GE junction. Esophag eal wall thickening appears more prominent as compared to 07/03/2023. Abdomen CT: Normal size liver with hepatic cysts. Negative gallbladder. No bile duct dilatation. Norm al portal vein. Normal spleen. No adrenal mass. Fatty replacement of the pancreas. Marked atheroscler osis abdominal aorta. Atherosclerotic calcification at the origin of the SMA and celiac axis. Moderat e calcification throughout the SMA. Normally enhancing kidneys. Cortical thinning and scarring upper pole RIGHT kidney. Small extrarenal pelves. Ureters are very mildly prominent but this is probably due to an overdistended urinary bladde r. No calyceal dilatation. No mass. Normally distended stomach. No small bowel obstruction. Diffuse constipation. There is a dilated loop of GI tract in the RIGHT lower quadrant which is probably cecum which is slightly medial displaced b ut similar to prior studies. There has been no interval change and no obstructive pattern is apprecia violeta. Moderate diverticular disease in the distal colon. No obstructive pattern. No acute colitis. Pelvic CT: [place] distended urinary bladder. There is no free fluid in the pelvis. No renal obstructi on. Advanced thoracic and lumbar spondylosis. No destructive lesions are identified. CT/CT chest abdpel w/*[id number] IMPRESSION: 1. Circumferential wall thickening involving the distal esophagus extending in to the GE junction, progressed since the prior exam. Distal esophagus was posit iesha on a recent PET/CT. Suspicious for recurrent neoplasm. 2. Additional fluid distending the majority of the esophagus. May be esophagea l reflux or obstruction of the distal GE junction. 3. No metastatic disease in the lungs, liver or adrenal glands. 4. Small mediastinal and hilar lymph nodes are very slightly increased in size since 04/10/2022. Indeterminate for early metastatic lesions. 5. Hepatic cysts. 6. Very mild dilatation of the ureters is probably due to an overly distended urinary bladder. 7. No GI tract obstruction. 8. No ascites.
[2024-02-26 14:07] LABS: Blood Urea Nitrogen 15 mg/dL (8-23)
[2024-02-26] MEDS: iohexol 350 mg/mL 500 mL Btl (per mL) IV (14:27)
== END 2024-02-26 12:44 | disposition home or self-care (01) ==
LOC: RAD 12:43
PROVIDERS: PCP Emergency Medicine Emergency Medical Services; Visit Provider Internal Medicine
DX: C15.5 Malignant neoplasm of lower third of esophagus (principal); K76.89 Other specified diseases of liver
CPT/HCPCS: 71260; 74177; 82565; 84520; Q9967

== ENCOUNTER 2024-02-26 13:00 | Oncology outpatient (recurring) (ONCR) | payer OTHER, SELFPAY | END 2024-03-23 23:59 | disposition home or self-care (01) | PROVIDERS: PCP Emergency Medicine Emergency Medical Services; Visit Provider Internal Medicine Medical Oncology | DX: C15.5 Malignant neoplasm of lower third of esophagus (principal); Z79.899 Other long term (current) drug therapy; Z95.828 Presence of other vascular implants and grafts | CPT/HCPCS: 96523 ==

== ENCOUNTER 2024-04-08 12:30 | Oncology outpatient (recurring) (ONCR) | payer OTHER, SELFPAY ==
[2024-03-25 10:21] LABS: Basophils % 0.7 %; Eosinophils # 0.2 10^3/uL (0.0-0.8); Eosinophils % 2.6 %; Hematocrit 40.3 % (37-53); Lymphocytes # 0.6 10^3/uL (0.8-4.8); Lymphocytes % 10.9 %; Mean Corpuscular HGB Conc 33.3 g/dL (30-55); Mean Corpuscular Hemoglobin 34.2 pg (27-33); Mean Corpuscular Volume 102.8 fl (82-101); Mean Platelet Volume 10.2 fL (7.4-10.4); Monocytes # 0.6 10^3/uL (0.2-0.9); Monocytes % 10.2 %; Neutrophils # 4.31 10^3/uL (1.8-7.7); Neutrophils % 75.4 %; Nucleated Red Blood Cells % 0 %; Platelet Count 166 10^3/cmm (157-399); Red Blood Count 3.92 10^6/uL (3.85-5.65); Red Cell Distribution Width 14.6 % (12.1-15.1); White Blood Count 5.71 10^3/uL (3.29-11.43)
[2024-03-25 10:37] LABS: Alanine Aminotransferase 22 U/L (0-41); Albumin Level 3.8 g/dL (3.5-5.2); Alkaline Phosphatase 118 U/L (40-130); Anion Gap 13.3 (5-19); Aspartate Amino Transferase 28 U/L (0-40); Blood Urea Nitrogen 17 mg/dL (8-23); Calcium 8.5 mg/dL (8.5-10.5); Carbon Dioxide 28 mmol/L (22-29); Chloride 101 mmol/L (98-107); Globulin 2.5 g/dL (1.3-4.6); Glucose 162 mg/dL (65-115); Osmolality Calculated 291 mOsm/kg (285-295); Potassium 4.3 mmol/L (3.5-5.1); Sodium 138 mmol/L (136-145); Total Bilirubin 0.6 mg/dL (0.15-1.2); Total Protein 6.3 g/dL (6.6-8.7)
[2024-03-25 19:58] LABS: Vitamin B12 634 pg/mL (232-1245)
[2024-03-25 23:57] LABS: Folate Level > 20.0 ng/mL (4.5-32.2)
[2024-03-28 14:03] LABS: Methylmalonic Acid 187 nmol/L (85-423)
[2024-04-08 12:35] LABS: Basophils % 0.7 %; Eosinophils # 0.2 10^3/uL (0.0-0.8); Eosinophils % 3.2 %; Hematocrit 39.9 % (37-53); Lymphocytes # 0.7 10^3/uL (0.8-4.8); Lymphocytes % 11.8 %; Mean Corpuscular HGB Conc 33.3 g/dL (30-55); Mean Corpuscular Hemoglobin 34.4 pg (27-33); Mean Corpuscular Volume 103.1 fl (82-101); Mean Platelet Volume 10.2 fL (7.4-10.4); Monocytes # 0.7 10^3/uL (0.2-0.9); Neutrophils # 4.39 10^3/uL (1.8-7.7); Neutrophils % 73.1 %; Nucleated Red Blood Cells % 0 %; Platelet Count 171 10^3/cmm (157-399); Red Blood Count 3.87 10^6/uL (3.85-5.65); Red Cell Distribution Width 14.7 % (12.1-15.1)
[2024-04-08 12:58] LABS: Alanine Aminotransferase 23 U/L (0-41); Albumin Level 3.8 g/dL (3.5-5.2); Alkaline Phosphatase 105 U/L (40-130); Anion Gap 12.4 (5-19); Aspartate Amino Transferase 27 U/L (0-40); Blood Urea Nitrogen 19 mg/dL (8-23); Calcium 8.6 mg/dL (8.5-10.5); Carbon Dioxide 27 mmol/L (22-29); Chloride 100 mmol/L (98-107); Creatinine Clr Calc Pharmacy 62.1855; Globulin 2.5 g/dL (1.3-4.6); Glucose 106 mg/dL (65-115); Osmolality Calculated 283 mOsm/kg (285-295); Potassium 4.4 mmol/L (3.5-5.1); Sodium 135 mmol/L (136-145); Total Bilirubin 0.5 mg/dL (0.15-1.2); Total Protein 6.3 g/dL (6.6-8.7)
[2024-04-08 13:14] LABS: Vitamin B12 694 pg/mL (232-1245)
[2024-04-08 13:51] LABS: Folate Level > 20.0 ng/mL (4.5-32.2)
[2024-04-10 22:54] LABS: Zinc Level, Serum or Plasma 50 mcg/dL (60-130)
[2024-04-11 00:05] LABS: Copper Level 119 mcg/dL (70-175)
[2024-04-12 07:14] LABS: Methylmalonic Acid 202 nmol/L (85-423)
== END 2024-04-23 23:59 | disposition home or self-care (01) ==
PROVIDERS: Internal Medicine; PCP Emergency Medicine Emergency Medical Services; Visit Provider Internal Medicine Medical Oncology
DX: Z53.9 Procedure and treatment not carried out, unspecified reason (principal); C15.5 Malignant neoplasm of lower third of esophagus
CPT/HCPCS: 36591; 80053; 82525; 82607; 82746; 83921; 84630; 85025; 99213; 99214

== ENCOUNTER 2024-04-24 07:52 | Oncology outpatient (recurring) (ONCR) | payer OTHER, SELFPAY ==
[2024-04-24] VITALS (8 sets, daily range): BP systolic 105–145; BP diastolic 50–69; PULSE 62–88; RESP 16–20; TEMP 36.5; O2SAT 93–99
[2024-04-24 08:16] LABS: Basophils # 0.1 10^3/uL (0.0-0.1); Eosinophils # 0.3 10^3/uL (0.0-0.8); Eosinophils % 5.4 %; Hematocrit 44.5 % (37-53); Lymphocytes # 0.6 10^3/uL (0.8-4.8); Lymphocytes % 12.3 %; Mean Corpuscular HGB Conc 32.6 g/dL (30-55); Mean Corpuscular Hemoglobin 33.6 pg (27-33); Mean Platelet Volume 10.2 fL (7.4-10.4); Monocytes # 0.5 10^3/uL (0.2-0.9); Monocytes % 9.9 %; Neutrophils # 3.59 10^3/uL (1.8-7.7); Neutrophils % 71.2 %; Nucleated Red Blood Cells % 0 %; Platelet Count 155 10^3/cmm (157-399); Red Blood Count 4.32 10^6/uL (3.85-5.65); Red Cell Distribution Width 14.3 % (12.1-15.1); White Blood Count 5.04 10^3/uL (3.29-11.43)
[2024-04-24 08:41] LABS: Alanine Aminotransferase 26 U/L (0-41); Albumin Level 3.9 g/dL (3.5-5.2); Alkaline Phosphatase 111 U/L (40-130); Anion Gap 14.2 (5-19); Aspartate Amino Transferase 26 U/L (0-40); Blood Urea Nitrogen 14 mg/dL (8-23); Calcium 8.8 mg/dL (8.5-10.5); Carbon Dioxide 25 mmol/L (22-29); Chloride 105 mmol/L (98-107); Globulin 2.8 g/dL (1.3-4.6); Glucose 146 mg/dL (65-115); Osmolality Calculated 293 mOsm/kg (285-295); Potassium 4.2 mmol/L (3.5-5.1); Sodium 140 mmol/L (136-145); Total Bilirubin 0.7 mg/dL (0.15-1.2); Total Protein 6.7 g/dL (6.6-8.7)
[2024-04-24 08:44] LABS: Creatinine Clr Calc Pharmacy 60.7001
[2024-04-24] MEDS: palonosetron 0.25 mg/5 mL SDV IVP (09:59)
[2024-04-24] MEDS: sodium chloride 0.9% 250 ML 75 ML IV (09:59)
[2024-04-24] MEDS: dexamethasone 4 mg/mL INJ 5 mL 12 MG IVP (10:00)
[2024-04-24] MEDS: atropine 1 mg/mL SDV 1 mL 0.4 MG IV (10:33)
[2024-04-24] MEDS: IRINOTECAN IV (10:43)
[2024-04-24] MEDS: DEXTROSE 5% IV (10:43)
[2024-04-24] MEDS: RAMUCIRUMAB IV (12:29)
[2024-04-24] MEDS: SODIUM CHLORIDE 0.9% IV (12:29)
[2024-04-24] MEDS: methylPREDNISolone sod succ 125 mg/2 mL INJ 60 MG IVP (12:55)
[2024-04-24] MEDS: diphenhydrAMINE 50 mg/mL SDV 1mL 25 MG IVP ×2 (13:04→13:22)
== END 2024-04-24 23:59 | disposition home or self-care (01) ==
PROVIDERS: Nurse Practitioner Family; PCP Emergency Medicine Emergency Medical Services; Visit Provider Internal Medicine Medical Oncology
DX: C15.5 Malignant neoplasm of lower third of esophagus; Z79.899 Other long term (current) drug therapy; Z95.828 Presence of other vascular implants and grafts; Z51.11 Encounter for antineoplastic chemotherapy; Z79.52 Long term (current) use of systemic steroids
CPT/HCPCS: 80053; 85025; 96375; 96413; 96417; 99215; A4222; J0461; J1100; J1200; J2469; J2919; J7050; J7060; J9206; J9308

== ENCOUNTER 2024-05-15 14:15 | Oncology outpatient (recurring) (ONCR) | payer OTHER, SELFPAY ==
[2024-05-01 10:11] LABS: Eosinophils # 0.1 10^3/uL (0.0-0.8); Eosinophils % 4.5 %; Hematocrit 40.6 % (37-53); Lymphocytes # 0.8 10^3/uL (0.8-4.8); Lymphocytes % 26.7 %; Mean Corpuscular HGB Conc 33.5 g/dL (30-55); Mean Corpuscular Hemoglobin 34.5 pg (27-33); Mean Platelet Volume 10.4 fL (7.4-10.4); Monocytes # 0.1 10^3/uL (0.2-0.9); Monocytes % 4.5 %; Neutrophils % 57.8 %; Nucleated Red Blood Cells % 0 %; Platelet Count 137 10^3/cmm (157-399); Red Blood Count 3.94 10^6/uL (3.85-5.65); Red Cell Distribution Width 13.9 % (12.1-15.1); White Blood Count 3.11 10^3/uL (3.29-11.43)
[2024-05-01 10:29] LABS: Alanine Aminotransferase 24 U/L (0-41); Albumin Level 3.7 g/dL (3.5-5.2); Alkaline Phosphatase 112 U/L (40-130); Anion Gap 16.1 (5-19); Aspartate Amino Transferase 18 U/L (0-40); Blood Urea Nitrogen 23 mg/dL (8-23); Calcium 8.6 mg/dL (8.5-10.5); Carbon Dioxide 24 mmol/L (22-29); Chloride 97 mmol/L (98-107); Globulin 2.6 g/dL (1.3-4.6); Glucose 119 mg/dL (65-115); Osmolality Calculated 281 mOsm/kg (285-295); Potassium 4.1 mmol/L (3.5-5.1); Sodium 133 mmol/L (136-145); Total Bilirubin 0.6 mg/dL (0.15-1.2); Total Protein 6.3 g/dL (6.6-8.7)
[2024-05-01 10:51] LABS: Slide Review Slide Review Perform
[2024-05-08 08:23] LABS: Charge for UA Resulting for Rev
[2024-05-08 08:29] LABS: Basophils % 1.2 %; Eosinophils # 0.1 10^3/uL (0.0-0.8); Eosinophils % 1.9 %; Hematocrit 35.8 % (37-53); Lymphocytes # 0.4 10^3/uL (0.8-4.8); Lymphocytes % 17.1 %; Mean Corpuscular HGB Conc 34.1 g/dL (30-55); Mean Corpuscular Hemoglobin 33.9 pg (27-33); Mean Corpuscular Volume 99.4 fl (82-101); Mean Platelet Volume 9.8 fL (7.4-10.4); Monocytes # 0.5 10^3/uL (0.2-0.9); Monocytes % 19.1 %; Neutrophils # 1.55 10^3/uL (1.8-7.7); Neutrophils % 60.3 %; Nucleated Red Blood Cells % 0 %; Platelet Count 190 10^3/cmm (157-399); Red Cell Distribution Width 13.8 % (12.1-15.1); White Blood Count 2.57 10^3/uL (3.29-11.43)
[2024-05-08 08:35] LABS: Bilirubin Urine Negative (Negative); Blood Urine Negative (Negative); Glucose Urine UA Negative (Normal); Ketones Urine Negative (Negative); Leukocyte Esterase Urine Trace (Negative); Nitrate Urine Negative (Negative); Protein Urine Trace (Negative); Specific Gravity, Urine 1.024 (1.005-1.030); Urine Appearance Clear (CLEAR); Urine Color Dark Yellow (Yellow)
[2024-05-08 08:38] LABS: Bacteria Urine None Seen /hpf; RBC Urine 0-2 /hpf (0-2); Squamous Epithelial Cell Urine 0-5 /hpf (0-5); WBC Urine 0-5 /hpf (0-5)
[2024-05-08 08:53] LABS: Alanine Aminotransferase 12 U/L (0-41); Alkaline Phosphatase 92 U/L (40-130); Anion Gap 16.7 (5-19); Aspartate Amino Transferase 13 U/L (0-40); Blood Urea Nitrogen 17 mg/dL (8-23); Calcium 7.8 mg/dL (8.5-10.5); Carbon Dioxide 25 mmol/L (22-29); Chloride 94 mmol/L (98-107); Globulin 2.8 g/dL (1.3-4.6); Glucose 159 mg/dL (65-115); Osmolality Calculated 279 mOsm/kg (285-295); Potassium 3.7 mmol/L (3.5-5.1); Sodium 132 mmol/L (136-145); Thyroid Stimulating Hormone 2.61 uIU/mL (0.27-4.20); Total Bilirubin 0.7 mg/dL (0.15-1.2); Total Protein 5.8 g/dL (6.6-8.7)
[2024-05-08] MEDS: dexamethasone 4 mg/mL INJ 5 mL 12 MG IVP (10:21)
[2024-05-08] MEDS: palonosetron 0.25 mg/5 mL SDV IVP (10:21)
[2024-05-08] MEDS: sodium chloride 0.9% 250 ML 75 ML IV (10:21)
[2024-05-08] MEDS: atropine 1 mg/mL SDV 1 mL 0.4 MG IV (10:28)
[2024-05-08] MEDS: DEXTROSE 5% IV (10:39)
[2024-05-08] MEDS: IRINOTECAN IV (10:39)
[2024-05-08] MEDS: pegfilgrastim 6 mg/0.6 mL Kit (onpro) SUBCUT (12:15)
[2024-05-08 12:23] VITALS: BP 104/57; PULSE 77; RESP 18; TEMP 35.6; O2SAT 98
[2024-05-15 14:25] LABS: Hematocrit 36.9 % (37-53); Mean Corpuscular HGB Conc 34.1 g/dL (30-55); Mean Corpuscular Hemoglobin 34.3 pg (27-33); Mean Corpuscular Volume 100.5 fl (82-101); Mean Platelet Volume 10.3 fL (7.4-10.4); Platelet Count 151 10^3/cmm (157-399); Red Blood Count 3.67 10^6/uL (3.85-5.65); Red Cell Distribution Width 13.6 % (12.1-15.1)
[2024-05-15 14:49] LABS: Alanine Aminotransferase 13 U/L (0-41); Albumin Level 3.2 g/dL (3.5-5.2); Alkaline Phosphatase 102 U/L (40-130); Anion Gap 16.3 (5-19); Aspartate Amino Transferase 11 U/L (0-40); Blood Urea Nitrogen 14 mg/dL (8-23); Calcium 8.5 mg/dL (8.5-10.5); Carbon Dioxide 25 mmol/L (22-29); Chloride 96 mmol/L (98-107); Creatinine Clr Calc Pharmacy 61.0549; Globulin 2.7 g/dL (1.3-4.6); Glucose 159 mg/dL (65-115); Osmolality Calculated 280 mOsm/kg (285-295); Potassium 4.3 mmol/L (3.5-5.1); Sodium 133 mmol/L (136-145); Total Bilirubin 1.1 mg/dL (0.15-1.2); Total Protein 5.9 g/dL (6.6-8.7)
[2024-05-15 15:13] LABS: Slide Review Slide Review Perform
[2024-05-15 15:14] LABS: Absolute Segmented Neutrophil 0.1 10/cmm (1.6-7.1); Band Neutrophils Absolute 0.2 10^3/cmm (0.0-1.2); Eosinophils 2 %; Lymphocytes 22 %; Lymphocytes Absolute 0.5 10^3/cmm (1.2-3.4); Monocytes Absolute 0.1 10^3/cmm (0.1-0.6); Platelet Estimate Decreased (Normal); Segmented Neutrophils 13 %; Total Cells Counted 55 (0-100)
[2024-05-15 15:16] LABS: Absolute Neutrophil 0.3 10^3/cmm (1.4-6.5)
[2024-05-15 15:17] LABS: White Blood Count 0.93 10^3/uL (3.29-11.43)
== END 2024-05-24 23:55 | disposition home or self-care (01) ==
PROVIDERS: Nurse Practitioner Family; PCP Emergency Medicine Emergency Medical Services; Visit Provider Internal Medicine Medical Oncology
DX: Z53.9 Procedure and treatment not carried out, unspecified reason (principal); C15.5 Malignant neoplasm of lower third of esophagus
CPT/HCPCS: 36591; 80053; 81003; 81015; 84443; 85007; 85025; 96372; 96375; 96413; 99214; J0461; J1100; J2469; J2506; J7050; J7060; J9206

== ENCOUNTER 2024-05-19 17:29 | Inpatient (IN) | payer OTHER, MEDICARE, SELFPAY ==
[2024-05-19] VITALS (11 sets, daily range): BP systolic 79–113; BP diastolic 40–66; PULSE 70–104; RESP 16–18; TEMP 36.4; O2SAT 94–99
--- NOTE | 2024-05-19 17:43 | XRR_ITS ---
PROCEDURE INFORMATION: Exam: XR Chest Exam date and time: 05/19/2024 5:48 PM Age: 89 years old Clinical indication: Dyspnea; Prior surgery; Surgery date: 1-6 months; Surgery type: Port pacer; Additional info: Dyspnea/cough TECHNIQUE: Imaging protocol: Radiologic exam of the chest. Views: 1 view. COMPARISON: CT chest abdpel w/*[id number] 02/26/2024 2:20 PM FINDINGS: Tubes, catheters and devices: Cardiac pacemaker on the left with leads in satisfactory position. A right-sided VAD is in good position with the catheter tip in the lower SVC. Lungs: Unremarkable. No consolidation or mass. Pleural spaces: Unremarkable. No pleural effusion. No pneumothorax. Heart/Mediastinum: Unremarkable. No cardiomegaly. Bones/joints: Unremarkable. XR/XR chest 1V portable [id number] IMPRESSION: No acute findings.
--- NOTE | 2024-05-19 17:54 | ED_ITS ---
Documented by User: Scott Cisneros DO 05/19/24 18:20 HPI - Weakness 2 General: Chief complaint: Weakness Stated complaint: NVD/ weakness Time Seen by Provider: 05/19/24 17:42 History of Present Illness: 89-year-old male presents emergency room with nausea vomiting diarrhea and weakness. He is currently extremely weak been unable to stand or do any of his own ADLs. He is currently on chemotherapy for esophageal CA.. Diagnosed about 3 to 4 years ago he has been on essentially suppressive therapies after difficulty maintaining therapy because of his poor tolerance to chemo. He just generally admitted inclining with nausea vomiting and diarrhea over the last 2 weeks days with really gotten so weak he can no longer stand up till now has been able to stand and ambulate transfer bed independently. Patient has a history of atrial fibrillation as well he is no longer on any anticoagulation because he was not tolerating. This is he has an ischemic cardiomyopathy has had multiple stents in the past 3 years ago his echocardiogram showed an ejection fraction of 20%. Associated symptoms: Reports nausea and vomiting; Denies chest pain, chills, melena, dysuria or fever(s) Review of Systems 2 Const: Denies: fever(s) or chills Card: Denies: chest pain Resp: Denies: dyspnea GI: Reports: abdominal pain, nausea, vomiting and diarrhea; Denies: hematemesis, coffee ground emesis, hematochezia or melena : Denies: dysuria, urinary frequency or urinary urgency Musc: Denies: neck pain or back pain Skin/Breast: Denies: rash PFSH ED 2 PFSH: Medical History (Updated 05/19/24 @ 22:27 by Juarez Presley MD) Anemia Leukocytosis Elevated d-dimer PE ruled out Hyperkalemia Left upper extremity swelling No DVT Heart failure Currently compensated Elevated troponin Acute and chronic respiratory failure with hypoxia Pneumonia Chest pain Hyperlipidemia Atrial flutter GERD (gastroesophageal reflux disease) Diabetes mellitus Coronary artery disease Peripheral arterial disease Diverticulosis CAD (coronary artery disease) Esophageal cancer Hypertension BPH (benign prostatic hyperplasia) Surgical History History of permanent cardiac pacemaker placement PEG (percutaneous endoscopic gastrostomy) status Status post coronary artery stent placement x 1 2006 History of incisional hernia repair x 2 H/O exploratory laparotomy I swallowed a safety pin when I was a kid and they had to open me up to get it out Status post placement of cardiac pacemaker Port-A-Cath in place Right subclavian History of foot surgery R ankle fracture S/P appendectomy H/O bilateral inguinal hernia repair Family History Other CAD (coronary artery disease) Cancer Diabetes Hyperlipidemia Denies family history of Clotting disorder Dementia Psychiatric illness Chronic kidney disease (CKD) Suicide Anesthesia complication Bleeding disorder Lung disease Hypertension Stroke Social History Smoking and tobacco/nicotine status: former use of tobacco/nicotine Quit status (tobacco/nicotine): has quit using Year quit tobacco: 1978 Former quit date comment: 2 ppd X 35 years Alcohol intake: former Former alcohol use details: Quit in September. Formerly heavy drinker Substance/Drug Use: never Lives independently: Yes Household members: spouse Marital status: Physical Exam 2 Const: GENERAL APPEARANCE: cooperative ORIENTATION/CONSCIOUSNESS: Yes awake HENMT: COMMON NORMALS: normocephalic, atraumatic and hearing grossly normal bilaterally HEAD & SCALP: normocephalic and atraumatic Resp: COMMON NORMALS: normal respiratory effort, No retractions, No use of accessory muscles and clear to auscultation bilaterally AUSCULTATION: clear to auscultation bilaterally Cardio: COMMON NORMALS: regular rate, regular rhythm and No murmurs present (Cardio) RATE: regular rate RHYTHM: regular rhythm GI: COMMON NORMALS: Soft to palpation and No hepatosplenomegaly present A USCULTATION: Yes normoactive bowel sounds PALPATION: Yes Soft to palpation, No Tenderness to palpation present (GI), No Guarding due to palpation present (GI) and Yes No hepatosplenomegaly present Extremity: COMMON NORMALS: normal to inspection, capillary refill normal, no clubbing, cyanosis or edema, no calf tenderness and no pedal edema Skin: COMMON NORMALS: no rashes or lesions noted GENERAL SKIN EXAM: no rashes or lesions noted Course 2 Vital Signs: Vital signs: Vital Signs Temperature 97.6 F 05/19/24 17:33 Pulse Rate 91 05/19/24 22:30 Respiratory Rate 16 05/19/24 22:30 Blood Pressure 97/40 05/19/24 22:30 Pulse Oximetry 98 05/19/24 22:30 Oxygen Delivery Me thod Room Air 05/19/24 17:33 MDM - Weakness Medical Decision Making Care signed out to Dr. Del Rio At change of shift. See final notes for diagnosis and disposition. Lab Data 05/19/24 18:11 05/19/24 18:11 Radiology Impressions Chest X-Ray 05/19/24 17:43 IMPRESSION: No acute findings. Chest/Abdomen/Pelvis CT 05/19/24 21:20 IMPRESSION: 1. Stable chronic lung changes 2. Stable mild wall thickening involving the esophagus IMPRESSION: 1. Stable hepatic cysts 2. Prostate enlargement with chronic bladder changes 3. Liquid stool in the colon as seen with diarrhea. No obvious colonic inflammation noted. Laboratory Results WBC 18.19 10^3/uL (3.29-11.43) H 05/19/24 18:11 RBC 3.52 10^6/uL (3.85-5.65) L 05/19/24 18:11 Hgb 11.70 g/dL (11.27-16.99) 05/19/24 18:11 Hct 33.8 % (37-53) L 05/19/24 18:11 MCV 96.0 fl (82-101) 05/19/24 18:11 MCH 33.2 pg (27-33) H 05/19/24 18:11 MCHC 34.6 g/dL (30-55) 05/19/24 18:11 RDW 14.3 % (12.1-15.1) 05/19/24 18:11 Plt Count 260 10^3/cmm (157-399) 05/19/24 18:11 MPV 11.1 fL (7.4-10.4) H 05/19/24 18:11 Lymph % (Auto) Not Reportable 05/19/24 18:11 [place] % (Auto) Not Reportable 05/19/24 18:11 Lymph # (Auto) Not Reportable 05/19/24 18:11 [place] # (Auto) Not Reportable 05/19/24 18:11 Total Counted 100 (0-100) 05/19/24 18:11 Atypical Lymphs % 2.0 % (0-5) 05/19/24 18:11 Absolute Neutrophils 14.9 10^3/cmm (1.4-6.5) H 05/19/24 18:11 Segmented Neutrophils 50 % 05/19/24 18:11 Abs Segm Neuts (Man) 9.1 10/cmm (1.6-7.1) H 05/19/24 18:11 Band Neutrophils 32.0 % 05/19/24 18:11 Abs Band Neuts (Man) 5.8 10^3/cmm (0.0-1.2) H 05/19/24 18:11 Absolute Lymphocytes 1.5 10^3/cmm (1.2-3.4) 05/19/24 18:11 Lymphocytes (Manual) 6 % 05/19/24 18:11 Monocytes (Manual) 4.0 % 05/19/24 18:11 Absolute Monocytes 0.7 10^3/cmm (0.1-0.6) H 05/19/24 18:11 Eosinophils (Manual) 0 % 05/19/24 18:11 Absolute Eosinophils 0.0 10^3/cmm (0.0-0.7) 05/19/24 18:11 Basophils (Manual) 0.0 % 05/19/24 18:11 Absolute Basophils 0.0 10^3/cmm (0.0-0.2) 05/19/24 18:11 Metamyelocytes 5.0 % 05/19/24 18:11 Myelocytes 1.0 % 05/19/24 18:11 Smudge Cells Trace 05/19/24 18:11 Platelet Estimate Normal (Normal) 05/19/24 18:11 Macrocytosis Trace 05/19/24 18:11 Sodium 125 mmol/L (136-145) L 05/19/24 18:11 Potassium 3.0 mmol/L (3.5-5.1) L 05/19/24 18:11 Chloride 86 mmol/L (98-107) L 05/19/24 18:11 Carbon Dioxide 21 mmol/L (22-29) L 05/19/24 18:11 Anion Gap 21.0 (5-19) H 05/19/24 18:11 BUN 50 mg/dL (8-23) H 05/19/24 18:11 Creatinine 1.7 mg/dL (0.7-1.2) H 05/19/24 18:11 GFR Calculation Not Reportable 05/19/24 18:11 Glucose 205 mg/dL (65-115) H 05/19/24 18:11 Calculated Osmolality 279 mOsm/kg (285-295) L 05/19/24 18:11 Lactic Acid 4.1 mmol/L (0.5-2.2) H* 05/19/24 18:11 Lactic Acid (Sepsis) 1.8 mmol/L (0.5-2.2) 05/19/24 21:13 Calcium 7.9 mg/dL (8.5-10.5) L 05/19/24 18:11 Total Bilirubin 0.5 mg/dL (0.15-1.2) 05/19/24 18:11 AST 13 U/L (0-40) 05/19/24 18:11 ALT 11 U/L (0-41) 05/19/24 18:11 Alkaline Phosphatase 104 U/L (40-130) 05/19/24 18:11 C-Reactive Protein 39.1 mg/L (0.0-4.9) H 05/19/24 18:11 Total Protein 5.3 g/dL (6.6-8.7) L 05/19/24 18:11 Albumin 2.9 g/dL (3.5-5.2) L 05/19/24 18:11 Globulin 2.4 g/dL (1.3-4.6) 05/19/24 18:11 Lipase 21 U/L (13-60) 05/19/24 18:11 Procalcitonin 0.63 ng/mL (0-0.5) H 05/19/24 18:11 Urine Color Dark yellow (Yellow) A 05/19/24 20:12 Urine Appearance Clear (CLEAR) 05/19/24 20:12 Urine pH 5.0 (5-7) 05/19/24 20:12 Ur Specific [place] 1.021 (1.005-1.030) 05/19/24 20:12 Urine Protein Trace (Negative) A 05/19/24 20:12 Urine Glucose (UA) Negative (Normal) 05/19/24 20:12 Urine Ketones Trace (Negative) 05/19/24 20:12 Urine Blood Negative (Negative) 05/19/24 20:12 Urine Nitrate Negative (Negative) 05/19/24 20:12 Urine Bilirubin 1+ (Negative) H 05/19/24 20:12 Urine Urobilinogen 1.0 mg/dL (Negative) 05/19/24 20:12 Ur Leukocyte Esterase Trace (Negative) A 05/19/24 20:12 Urine RBC 0-4 /hpf (0-2) H 05/19/24 20:12 Urine WBC 0-4 /hpf (0-5) H 05/19/24 20:12 Ur Squamous Epith Cells 0-4 /hpf (0-5) H 05/19/24 20:12 Amorphous Sediment Not Reportable 05/19/24 20:12 Urine Bacteria None /hpf (NONE) 05/19/24 20:12 Hyaline Casts 14.87 /lpf 05/19/24 20:12 XR interpretation done by ED provider, pending radiology final review Discharge Plan Discharge Condition: Stable Prescriptions: No Action furosemide 20 mg tablet 20 mg PO QAM pyridoxine (vitamin B6) 50 mg tablet 25 mg PO BID Spiriva Respimat 1.25 mcg/actuation mist 2 puff inhalation DAILY Qty: 4 6RF cilostazol 50 mg tablet 50 mg PO BID Qty: 180 3RF zinc acetate 50 mg (zinc) capsule 50 mg PO DAILY prednisone 10 mg tablet 10 mg PO DIRECTED Qty: 16 0RF Rx Instructions: 2 tabs BID x2 days 1 tab BID x2 days 1 tab daily x2 days morphine 10 mg/5 mL solution 10 mg PO Q6H PRN (Reason: pain) 15 Days Qty: 150 0RF Rx Instructions: 5mL to 10mL every 6 hours PRN levofloxacin 500 mg tablet 500 mg PO DAILY 7 Days Qty: 7 0RF simvastatin 80 mg Tablet 40 mg PO BEDTIME hydrocodone-acetaminophen 7.5-325 mg Tablet 1 tab PO Q6H PRN (Reason: Pain) finasteride 5 mg Tablet 5 mg PO QAM cholecalciferol (vitamin D3) [Vitamin D3] 25 mcg (1,000 unit) Capsule 25 mcg PO DAILY Flomax 0.4 mg Capsule 0.4 mg PO QPM nitroglycerin [Nitrostat] 0.4 mg Tablet, Sublingual 0.4 mg SUBLINGUAL Q5M PRN (Reason: Chest Pain) Rx Instructions: do not exceed 3 doses per episode lisinopril 5 mg Tablet 2.5 mg PO QAM verapamil 120 mg tablet 120 mg PO QAM Protonix 40 mg Tablet,Delayed Release (Dr/Ec) 40 mg PO BID prochlorperazine maleate [Compazine] 10 mg Tablet 10 mg PO Q4H PRN (Reason: nausea) 30 Days Qty: 180 6RF Referrals: Tray Mcclellan DO [Primary Care Provider] - Coding Level of Care Code ED Patient Financial Services Manager for Chg Fwd Related Data Home Medications Medication Instructions Recorded Confirmed cholecalciferol (vitamin D3) 25 25 mcg PO DAILY 01/12/20 05/08/24 mcg (1,000 unit) capsule (Vitamin D3) finasteride 5 mg tablet 5 mg PO QAM 01/12/20 05/08/24 hydrocodone 7.5 mg-acetaminophen 1 tab PO Q6H PRN Pain 01/07/21 05/08/24 325 mg tablet simvastatin 80 mg tablet 40 mg PO BEDTIME 01/07/21 05/08/24 furosemide 20 mg tablet 20 mg PO QAM 01/20/21 05/08/24 lisinopril 5 mg tablet 2.5 mg PO QAM 05/08/22 05/08/24 nitroglycerin 0.4 mg sublingual 0.4 mg sublingual Q5M PRN Chest 05/08/22 05/08/24 tablet (Nitrostat) Pain pantoprazole 40 mg tablet,delayed 40 mg PO BID 05/08/22 05/08/24 release (Protonix) tamsulosin 0.4 mg capsule (Flomax) 0.4 mg PO QPM 05/08/22 05/08/24 verapamil 120 mg tablet 120 mg PO QAM 05/08/22 05/08/24 pyridoxine (vitamin B6) 50 mg 25 mg PO BID 04/12/23 05/08/24 tablet zinc acetate 50 mg (zinc) capsule 50 mg PO DAILY 04/24/24 05/08/24 Previous Rx's Medication Instructions Recorded cilostazol 50 mg tablet 50 mg PO BID #180 tabs 05/16/22 prochlorperazine maleate 10 mg 10 mg PO Q4H PRN nausea 30 days 06/07/22 tablet (Compazine) #180 tabs tiotropium bromide 1.25 2 puff inhalation DAILY #4 grams 04/12/23 mcg/actuation mist for inhalation (Spiriva Respimat) prednisone 10 mg tablet 10 mg PO DIRECTED #16 tabs 04/24/24 morphine 10 mg/5 mL oral solution 10 mg (5 mL) PO Q6H PRN pain 15 04/25/24 days #150 mL levofloxacin 500 mg tablet 500 mg PO DAILY 7 days #7 tabs 05/15/24 Allergies Allergy/AdvReac Type Severity Reaction Status Date / Time No Known Allergies Allergy Verified 05/19/24 17:41 Documented by User: Tello Del Rio MD 05/19/24 22:53 HPI - Weakness 2 General: Chief complaint: Weakness Stated complaint: NVD/ weakness Time Seen by Provider: 05/19/24 17:42 PFSH ED 2 PFSH: Medical History (Updated 05/19/24 @ 22:27 by Juarez Presley MD) Anemia Leukocytosis Elevated d-dimer PE ruled out Hyperkalemia Left upper extremity swelling No DVT Heart failure Currently compensated Elevated troponin Acute and chronic respiratory failure with hypoxia Pneumonia Chest pain Hyperlipidemia Atrial flutter GERD (gastroesophageal reflux disease) Diabetes mellitus Coronary artery disease Peripheral arterial disease Diverticulosis CAD (coronary artery disease) Esophageal cancer Hypertension BPH (benign prostatic hyperplasia) Surgical History History of permanent cardiac pacemaker placement PEG (percutaneous endoscopic gastrostomy) status Status post coronary artery stent placement x 1 2006 History of incisional hernia repair x 2 H/O exploratory laparotomy I swallowed a safety pin when I was a kid and they had to open me up to get it out Status post placement of cardiac pacemaker Port-A-Cath in place Right subclavian History of foot surgery R ankle fracture S/P appendectomy H/O bilateral inguinal hernia repair Family History Other CAD (coronary artery disease) Cancer Diabetes Hyperlipidemia Denies family history of Clotting disorder Dementia Psychiatric illness Chronic kidney disease (CKD) Suicide Anesthesia complication Bleeding disorder Lung disease Hypertension Stroke Social History Smoking and tobacco/nicotine status: former use of tobacco/nicotine Quit status (tobacco/nicotine): has quit using Year quit tobacco: 1978 Former quit date comment: 2 ppd X 35 years Alcohol intake: former Former alcohol use details: Quit in September. Formerly heavy drinker Substance/Drug Use: never Lives independently: Yes Household members: spouse Marital status: Course 2 Vital Signs: Vital signs: Vital Signs Temperature 97.6 F 05/19/24 17:33 Pulse Rate 91 05/19/24 22:30 Respiratory Rate 16 05/19/24 22:30 Blood Pressure 97/40 05/19/24 22:30 Pulse Oximetry 98 05/19/24 22:30 Oxygen Delivery Me thod Room Air 05/19/24 17:33 MDM - Weakness Medical Decision Making Care signed out to Dr. Del Rio At change of shift. See final notes for diagnosis and disposition. I assumed care of this patient at shift change. Labs were pending. I did interview the patient and examined the patient. This patient is an 89-year-old white male with a history of esophageal cancer currently on chemotherapy. This morning he woke up very weak and was unable to walk. He has not had a fever. No cough or congestion. No chest pain or shortness of breath. No abdominal pain. No nausea or vomiting. He has had diarrhea for the past 7 to 8 days. Patient has been on Levaquin due to low white blood cell count. EKG revealed atrial tachycardia at a rate of [address] segment abnormalities. CBC revealed a white blood cell count of 18.2. CMP revealed a sodium of 125, potassium 3.0, BUN 50, creatinine 1.7 and a blood sugar of 205. Lactic acid level was elevated at 4.1. Urinalysis was normal. C. difficile test is pending. Chest x-ray did not reveal any infiltrates. CT scan of the chest abdomen pelvis was requested by Dr. Presley, hospitalist. There is nothing acute on that. Dr. Presley would like us to start meropenem and I did order that. Patient will be admitted. He is stable. Lab Data 05/19/24 18:11 05/19/24 18:11 Radiology Impressions Chest X-Ray 05/19/24 17:43 IMPRESSION: No acute findings. Chest/Abdomen/Pelvis CT 05/19/24 21:20 IMPRESSION: 1. Stable chronic lung changes 2. Stable mild wall thickening involving the esophagus IMPRESSION: 1. Stable hepatic cysts 2. Prostate enlargement with chronic bladder changes 3. Liquid stool in the colon as seen with diarrhea. No obvious colonic inflammation noted. Laboratory Results WBC 18.19 10^3/uL (3.29-11.43) H 05/19/24 18:11 RBC 3.52 10^6/uL (3.85-5.65) L 05/19/24 18:11 Hgb 11.70 g/dL (11.27-16.99) 05/19/24 18:11 Hct 33.8 % (37-53) L 05/19/24 18:11 MCV 96.0 fl (82-101) 05/19/24 18:11 MCH 33.2 pg (27-33) H 05/19/24 18:11 MCHC 34.6 g/dL (30-55) 05/19/24 18:11 RDW 14.3 % (12.1-15.1) 05/19/24 18:11 Plt Count 260 10^3/cmm (157-399) 05/19/24 18:11 MPV 11.1 fL (7.4-10.4) H 05/19/24 18:11 Lymph % (Auto) Not Reportable 05/19/24 18:11 [place] % (Auto) Not Reportable 05/19/24 18:11 Lymph # (Auto) Not Reportable 05/19/24 18:11 [place] # (Auto) Not Reportable 05/19/24 18:11 Total Counted 100 (0-100) 05/19/24 18:11 Atypical Lymphs % 2.0 % (0-5) 05/19/24 18:11 Absolute Neutrophils 14.9 10^3/cmm (1.4-6.5) H 05/19/24 18:11 Segmented Neutrophils 50 % 05/19/24 18:11 Abs Segm Neuts (Man) 9.1 10/cmm (1.6-7.1) H 05/19/24 18:11 Band Neutrophils 32.0 % 05/19/24 18:11 Abs Band Neuts (Man) 5.8 10^3/cmm (0.0-1.2) H 05/19/24 18:11 Absolute Lymphocytes 1.5 10^3/cmm (1.2-3.4) 05/19/24 18:11 Lymphocytes (Manual) 6 % 05/19/24 18:11 Monocytes (Manual) 4.0 % 05/19/24 18:11 Absolute Monocytes 0.7 10^3/cmm (0.1-0.6) H 05/19/24 18:11 Eosinophils (Manual) 0 % 05/19/24 18:11 Absolute Eosinophils 0.0 10^3/cmm (0.0-0.7) 05/19/24 18:11 Basophils (Manual) 0.0 % 05/19/24 18:11 Absolute Basophils 0.0 10^3/cmm (0.0-0.2) 05/19/24 18:11 Metamyelocytes 5.0 % 05/19/24 18:11 Myelocytes 1.0 % 05/19/24 18:11 Smudge Cells Trace 05/19/24 18:11 Platelet Estimate Normal (Normal) 05/19/24 18:11 Macrocytosis Trace 05/19/24 18:11 Sodium 125 mmol/L (136-145) L 05/19/24 18:11 Potassium 3.0 mmol/L (3.5-5.1) L 05/19/24 18:11 Chloride 86 mmol/L (98-107) L 05/19/24 18:11 Carbon Dioxide 21 mmol/L (22-29) L 05/19/24 18:11 Anion Gap 21.0 (5-19) H 05/19/24 18:11 BUN 50 mg/dL (8-23) H 05/19/24 18:11 Creatinine 1.7 mg/dL (0.7-1.2) H 05/19/24 18:11 GFR Calculation Not Reportable 05/19/24 18:11 Glucose 205 mg/dL (65-115) H 05/19/24 18:11 Calculated Osmolality 279 mOsm/kg (285-295) L 05/19/24 18:11 Lactic Acid 4.1 mmol/L (0.5-2.2) H* 05/19/24 18:11 Lactic Acid (Sepsis) 1.8 mmol/L (0.5-2.2) 05/19/24 21:13 Calcium 7.9 mg/dL (8.5-10.5) L 05/19/24 18:11 Total Bilirubin 0.5 mg/dL (0.15-1.2) 05/19/24 18:11 AST 13 U/L (0-40) 05/19/24 18:11 ALT 11 U/L (0-41) 05/19/24 18:11 Alkaline Phosphatase 104 U/L (40-130) 05/19/24 18:11 C-Reactive Protein 39.1 mg/L (0.0-4.9) H 05/19/24 18:11 Total Protein 5.3 g/dL (6.6-8.7) L 05/19/24 18:11 Albumin 2.9 g/dL (3.5-5.2) L 05/19/24 18:11 Globulin 2.4 g/dL (1.3-4.6) 05/19/24 18:11 Lipase 21 U/L (13-60) 05/19/24 18:11 Procalcitonin 0.63 ng/mL (0-0.5) H 05/19/24 18:11 Urine Color Dark yellow (Yellow) A 05/19/24 20:12 Urine Appearance Clear (CLEAR) 05/19/24 20:12 Urine pH 5.0 (5-7) 05/19/24 20:12 Ur Specific [place] 1.021 (1.005-1.030) 05/19/24 20:12 Urine Protein Trace (Negative) A 05/19/24 20:12 Urine Glucose (UA) Negative (Normal) 05/19/24 20:12 Urine Ketones Trace (Negative) 05/19/24 20:12 Urine Blood Negative (Negative) 05/19/24 20:12 Urine Nitrate Negative (Negative) 05/19/24 20:12 Urine Bilirubin 1+ (Negative) H 05/19/24 20:12 Urine Urobilinogen 1.0 mg/dL (Negative) 05/19/24 20:12 Ur Leukocyte Esterase Trace (Negative) A 05/19/24 20:12 Urine RBC 0-4 /hpf (0-2) H 05/19/24 20:12 Urine WBC 0-4 /hpf (0-5) H 05/19/24 20:12 Ur Squamous Epith Cells 0-4 /hpf (0-5) H 05/19/24 20:12 Amorphous Sediment Not Reportable 05/19/24 20:12 Urine Bacteria None /hpf (NONE) 05/19/24 20:12 Hyaline Casts 14.87 /lpf 05/19/24 20:12 Discharge Plan Discharge Condition: Stable Prescriptions: No Action furosemide 20 mg tablet 20 mg PO QAM pyridoxine (vitamin B6) 50 mg tablet 25 mg PO BID Spiriva Respimat 1.25 mcg/actuation mist 2 puff inhalation DAILY Qty: 4 6RF cilostazol 50 mg tablet 50 mg PO BID Qty: 180 3RF zinc acetate 50 mg (zinc) capsule 50 mg PO DAILY prednisone 10 mg tablet 10 mg PO DIRECTED Qty: 16 0RF Rx Instructions: 2 tabs BID x2 days 1 tab BID x2 days 1 tab daily x2 days morphine 10 mg/5 mL solution 10 mg PO Q6H PRN (Reason: pain) 15 Days Qty: 150 0RF Rx Instructions: 5mL to 10mL every 6 hours PRN levofloxacin 500 mg tablet 500 mg PO DAILY 7 Days Qty: 7 0RF simvastatin 80 mg Tablet 40 mg PO BEDTIME hydrocodone-acetaminophen 7.5-325 mg Tablet 1 tab PO Q6H PRN (Reason: Pain) finasteride 5 mg Tablet 5 mg PO QAM cholecalciferol (vitamin D3) [Vitamin D3] 25 mcg (1,000 unit) Capsule 25 mcg PO DAILY Flomax 0.4 mg Capsule 0.4 mg PO QPM nitroglycerin [Nitrostat] 0.4 mg Tablet, Sublingual 0.4 mg SUBLINGUAL Q5M PRN (Reason: Chest Pain) Rx Instructions: do not exceed 3 doses per episode lisinopril 5 mg Tablet 2.5 mg PO QAM verapamil 120 mg tablet 120 mg PO QAM Protonix 40 mg Tablet,Delayed Release (Dr/Ec) 40 mg PO BID prochlorperazine maleate [Compazine] 10 mg Tablet 10 mg PO Q4H PRN (Reason: nausea) 30 Days Qty: 180 6RF Referrals: Tray Mcclellan DO [Primary Care Provider] - Coding Level of Care Code ED Patient Financial Services Manager for Chg Fwd Related Data Home Medications Medication Instructions Recorded Confirmed cholecalciferol (vitamin D3) 25 25 mcg PO DAILY 01/12/20 05/08/24 mcg (1,000 unit) capsule (Vitamin D3) finasteride 5 mg tablet 5 mg PO QAM 01/12/20 05/08/24 hydrocodone 7.5 mg-acetaminophen 1 tab PO Q6H PRN Pain 01/07/21 05/08/24 325 mg tablet simvastatin 80 mg tablet 40 mg PO BEDTIME 01/07/21 05/08/24 furosemide 20 mg tablet 20 mg PO QAM 01/20/21 05/08/24 lisinopril 5 mg tablet 2.5 mg PO QAM 05/08/22 05/08/24 nitroglycerin 0.4 mg sublingual 0.4 mg sublingual Q5M PRN Chest 05/08/22 05/08/24 tablet (Nitrostat) Pain pantoprazole 40 mg tablet,delayed 40 mg PO BID 05/08/22 05/08/24 release (Protonix) tamsulosin 0.4 mg capsule (Flomax) 0.4 mg PO QPM 05/08/22 05/08/24 verapamil 120 mg tablet 120 mg PO QAM 05/08/22 05/08/24 pyridoxine (vitamin B6) 50 mg 25 mg PO BID 04/12/23 05/08/24 tablet zinc acetate 50 mg (zinc) capsule 50 mg PO DAILY 04/24/24 05/08/24 Previous Rx's Medication Instructions Recorded cilostazol 50 mg tablet 50 mg PO BID #180 tabs 05/16/22 prochlorperazine maleate 10 mg 10 mg PO Q4H PRN nausea 30 days 06/07/22 tablet (Compazine) #180 tabs tiotropium bromide 1.25 2 puff inhalation DAILY #4 grams 04/12/23 mcg/actuation mist for inhalation (Spiriva Respimat) prednisone 10 mg tablet 10 mg PO DIRECTED #16 tabs 04/24/24 morphine 10 mg/5 mL oral solution 10 mg (5 mL) PO Q6H PRN pain 15 04/25/24 days #150 mL levofloxacin 500 mg tablet 500 mg PO DAILY 7 days #7 tabs 05/15/24 Allergies Allergy/AdvReac Type Severity Reaction Status Date / Time No Known Allergies Allergy Verified 05/19/24 17:41
--- NOTE | 2024-05-19 18:01 | ECG_ITS ---
[facility] Test Date: 2024-05-19 Pat Name: Bernard Alonzo Department: Room: Gender: Male Onsite Health Coach: : 1935 Requested By: Scott Beverly Order Number: [id number] Johnna MD: Israel Barrera M.D. Measurements Intervals [place] Rate: 105 P: -69 NC: 168 QRS: 17 QRSD: 123 T: 60 QT: 379 QTc: 501 Interpretive Statements ECTOPIC ATRIAL TACHYCARDIA WITH FREQUENT VENTRICULAR PREMATURE COMPLEXES MODERATE INTRAVENTRICULAR CONDUCTION DELAY [105+ ms QRS DURATION, 80+ ms Q/S IN V1/V2, NO Q AND 60+ ms R IN I/aVL/V5/V6] NONSPECIFIC T-WAVE ABNORMALITY Compared to ECG 05/08/2022 15:17:39 Ventricular premature complex(es) now present Ectopic atrial rhythm no longer present First degree AV block no longer present Possible ischemia no longer present T-wave abnormality still present Electronically Signed On 05-19-2024 22:50:38 CDT by Israel Barrera M.D. [email or web address]
[2024-05-19 18:30] LABS: Hematocrit 33.8 % (37-53); Mean Corpuscular HGB Conc 34.6 g/dL (30-55); Mean Corpuscular Hemoglobin 33.2 pg (27-33); Mean Platelet Volume 11.1 fL (7.4-10.4); Platelet Count 260 10^3/cmm (157-399); Red Blood Count 3.52 10^6/uL (3.85-5.65); Red Cell Distribution Width 14.3 % (12.1-15.1); White Blood Count 18.19 10^3/uL (3.29-11.43)
[2024-05-19] MEDS: sodium chloride 0.9% 500 ML 999 ML IV ×2 (18:32→20:18)
[2024-05-19 18:37] LABS: Alanine Aminotransferase 11 U/L (0-41); Albumin Level 2.9 g/dL (3.5-5.2); Alkaline Phosphatase 104 U/L (40-130); Aspartate Amino Transferase 13 U/L (0-40); Blood Urea Nitrogen 50 mg/dL (8-23); Calcium 7.9 mg/dL (8.5-10.5); Carbon Dioxide 21 mmol/L (22-29); Chloride 86 mmol/L (98-107); Globulin 2.4 g/dL (1.3-4.6); Glucose 205 mg/dL (65-115); Lipase 21 U/L (13-60); Osmolality Calculated 279 mOsm/kg (285-295); Sodium 125 mmol/L (136-145); Total Bilirubin 0.5 mg/dL (0.15-1.2); Total Protein 5.3 g/dL (6.6-8.7)
[2024-05-19 18:38] LABS: Creatinine Clr Calc Pharmacy 28.5647; Lactic Sepsis W/Reflex 4.1 mmol/L (0.5-2.2)
[2024-05-19 19:14] LABS: Slide Review Slide Review Perform; Total Cells Counted 100 (0-100)
[2024-05-19 19:15] LABS: Absolute Neutrophil 14.9 10^3/cmm (1.4-6.5); Absolute Segmented Neutrophil 9.1 10/cmm (1.6-7.1); Band Neutrophils Absolute 5.8 10^3/cmm (0.0-1.2); Eosinophils 0 %; Lymphocytes 6 %; Lymphocytes Absolute 1.5 10^3/cmm (1.2-3.4); Macrocytosis Trace; Monocytes Absolute 0.7 10^3/cmm (0.1-0.6); Platelet Estimate Normal (Normal); Segmented Neutrophils 50 %; Smudge Cells Trace
[2024-05-19] MEDS: levoFLOXacin 500 mg Tablet PO (19:19)
[2024-05-19 20:03] LABS: Reflex Lactate Order REFLEX LACTIC ORDERD
[2024-05-19 20:17] LABS: Charge for UA Resulting for Rev
[2024-05-19 20:20] LABS: Bilirubin Urine 1+ (Negative); Blood Urine Negative (Negative); Glucose Urine UA Negative (Normal); Ketones Urine Trace (Negative); Leukocyte Esterase Urine Trace (Negative); Nitrate Urine Negative (Negative); Protein Urine Trace (Negative); Specific Gravity, Urine 1.021 (1.005-1.030); Urine Appearance Clear (CLEAR); Urine Color Dark Yellow (Yellow)
[2024-05-19 20:59] LABS: Hyaline Casts Urine 14.87 /lpf; RBC Urine 0-4 /hpf (0-2); Squamous Epithelial Cell Urine 0-4 /hpf (0-5); UA Slide Review UA Slide Review Perf; WBC Urine 0-4 /hpf (0-5)
[2024-05-19 21:00] LABS: Add Urine Culture? No
--- NOTE | 2024-05-19 21:19 | P.HP_ITS ---
Providers/Chief Complaint 2 Primary Care Provider: Tray Mcclellan DO Chief Complaint: NVD/ weakness History of Present Illness Bernard Alonzo is a 89 year old male with a past medical history significant for esophageal cancer on chemotherapy, COPD, peripheral arterial disease, coronary artery disease, multiple other comorbidities who presents to the emergency department with diffuse weakness and diarrhea. Patient reports onset of symptoms about 5 days ago. Reports the diarrhea is been progressive since that time. He is taken Imodium without significant improvement in symptoms. Denies any blood or mucus in the stool. Denies abdominal pains, fevers or chills. Denies other alleviating or aggravating factors. Patient has a history of esophageal cancer. He is currently on treatment with irinotecan as well as Neulasta; appears his last dose was 05/08/2024. Of note he had repeat labs a week afterwards on 05/15/2024 which were significant for leukopenia with WBCs 0.93 and neutropenia with ANC of 300. He was started on p.o. Levaquin at that time. Patient is unsure of his symptoms of diarrhea and weakness started before or after the antibiotics started. In the emergency department, patient was found to have elevated heart rate above 90. Blood pressure was noted to be soft. Labs revealed leukocytosis, hyponatremia, hypokalemia, metabolic acidosis, elevated BUN/creatinine, lactic acidosis, and elevated inflammatory markers. Urinalysis was not consistent with UTI. Chest abdomen pelvis CT without contrast showed mostly stable and chronic findings, other than liquid stool in the colon consistent with diarrhea. Review of Systems 2 Narrative: A complete review of systems was obtained and is negative except as stated in HPI. Medications/Allergies Home Medications Medication Instructions Recorded Confirmed Last Taken Type cholecalciferol (vitamin D3) 25 25 mcg PO DAILY 01/12/20 05/08/24 05/08/22 History mcg (1,000 unit) capsule (Vitamin D3) finasteride 5 mg tablet 5 mg PO QAM 01/12/20 05/08/24 05/08/22 History hydrocodone 7.5 mg-acetaminophen 1 tab PO Q6H PRN Pain 01/07/21 05/08/24 Unknown History 325 mg tablet simvastatin 80 mg tablet 40 mg PO BEDTIME 01/07/21 05/08/24 05/07/22 History furosemide 20 mg tablet 20 mg PO QAM 01/20/21 05/08/24 05/08/22 History lisinopril 5 mg tablet 2.5 mg PO QAM 05/08/22 05/08/24 05/08/22 History nitroglycerin 0.4 mg sublingual 0.4 mg sublingual Q5M PRN Chest 05/08/22 05/08/24 Unknown History tablet (Nitrostat) Pain pantoprazole 40 mg tablet,delayed 40 mg PO BID 05/08/22 05/08/24 05/08/22 History release (Protonix) tamsulosin 0.4 mg capsule (Flomax) 0.4 mg PO QPM 05/08/22 05/08/24 05/07/22 History verapamil 120 mg tablet 120 mg PO QAM 05/08/22 05/08/24 05/08/22 History cilostazol 50 mg tablet 50 mg PO BID #180 tabs 05/16/22 05/08/24 Unknown Rx prochlorperazine maleate 10 mg 10 mg PO Q4H PRN nausea 30 days 06/07/22 05/08/24 Unknown Rx tablet (Compazine) #180 tabs pyridoxine (vitamin B6) 50 mg 25 mg PO BID 04/12/23 05/08/24 Unknown History tablet tiotropium bromide 1.25 2 puff inhalation DAILY #4 grams 04/12/23 05/08/24 Unknown Rx mcg/actuation mist for inhalation (Spiriva Respimat) prednisone 10 mg tablet 10 mg PO DIRECTED #16 tabs 04/24/24 05/08/24 Unknown Rx zinc acetate 50 mg (zinc) capsule 50 mg PO DAILY 04/24/24 05/08/24 Unknown History morphine 10 mg/5 mL oral solution 10 mg (5 mL) PO Q6H PRN pain 15 04/25/24 05/08/24 Unknown Rx days #150 mL levofloxacin 500 mg tablet 500 mg PO DAILY 7 days #7 tabs 05/15/24 Unknown Rx Allergies Allergy/AdvReac Type Severity Reaction Status Date / Time No Known Allergies Allergy Verified 05/19/24 17:41 PFSH Acute 2 PFSH: Medical History (Updated 05/19/24 @ 22:27 by Juarez Presley MD) Anemia Leukocytosis Elevated d-dimer PE ruled out Hyperkalemia Left upper extremity swelling No DVT Heart failure Currently compensated Elevated troponin Acute and chronic respiratory failure with hypoxia Pneumonia Chest pain Hyperlipidemia Atrial flutter GERD (gastroesophageal reflux disease) Diabetes mellitus Coronary artery disease Peripheral arterial disease Diverticulosis CAD (coronary artery disease) Esophageal cancer Hypertension BPH (benign prostatic hyperplasia) Surgical History History of permanent cardiac pacemaker placement PEG (percutaneous endoscopic gastrostomy) status Status post coronary artery stent placement x 1 2007 History of incisional hernia repair x 2 H/O exploratory laparotomy I swallowed a safety pin when I was a kid and they had to open me up to get it out Status post placement of cardiac pacemaker Port-A-Cath in place Right subclavian History of foot surgery R ankle fracture S/P appendectomy H/O bilateral inguinal hernia repair Family History Other CAD (coronary artery disease) Cancer Diabetes Hyperlipidemia Denies family history of Clotting disorder Dementia Psychiatric illness Chronic kidney disease (CKD) Suicide Anesthesia complication Bleeding disorder Lung disease Hypertension Stroke Social History Smoking and tobacco/nicotine status: former use of tobacco/nicotine Quit status (tobacco/nicotine): has quit using Year quit tobacco: 1978 Former quit date comment: 2 ppd X 35 years Alcohol intake: former Former alcohol use details: Quit in September. Formerly heavy drinker Substance/Drug Use: never Lives independently: Yes Household members: spouse Marital status: Vitals/I&O/Wt Last Vital Signs Temp 97.6 F 05/19/24 17:33 Pulse 98 05/19/24 21:00 Resp 18 05/19/24 21:00 BP 113/53 05/19/24 21:00 Pulse Ox 99 05/19/24 21:00 O2 Del Method Room Air 05/19/24 17:33 05/19/24 05/19/24 05/19/24 06:59 14:59 22:59 Intake Total 500 / 500 Balance 500 / 500 Weight last 48 hrs Weight 65.771 kg Physical Exam 2 Narrative: General: Patient is awake. Pleasant. Head: Normocephalic. Atraumatic. EOM intact. Dry mucous membranes. Neck: No JVD. Cardiovascular: RRR. No gallops. No murmurs. Lungs: Breath sounds are slightly diminished in bilateral bases, no use of accessory muscles, no crackles or wheezes. Skin: No jaundice. No rashes. Abdomen: Normal bowel sounds. No guarding. Slight tenderness palpation. Genito Urinary: Genital exam not performed since complaints not related. Extremities: No cyanosis or clubbing. Musculoskeletal: No swollen or erythematous joints. Neurological: Moves all 4 extremities. No myoclonus. Data 05/19/24 18:11 05/19/24 18:11 Micro: Microbiology 05/19/24 18:24 Blood Culture - Preliminary Blood SPECIMEN COLLECTED 05/19/24 18:11 Blood Culture - Preliminary Blood SPECIMEN COLLECTED A&P Assessment and plan (1) Severe sepsis: Presentation consistent with severe sepsis Source: Suspected GI infection SIRS: Leukocytosis, tachycardia with heart rate above 90 Endorgan damage, acute kidney injury Metabolic/lactic acidosis is present Status post more than 30 mL/kg body weight IV fluid bolus in ED Start broad-spectrum antibiotics with meropenem and vancomycin MRSA screen requested Check inflammatory markers Continuous telemetry monitoring (2) Acute kidney injury: Suspect prerenal in the setting of sepsis Provided IV hydration Avoid nephrotoxins Strict I's and O's Daily weights (3) Hypokalemia: Replace with IV potassium and IV fluids Telemetry monitoring Serial labs (4) Hyponatremia: Acute on chronic hyponatremia Suspect acute component related to hypovolemia from sepsis Status post NS boluses Start maintenance NS fluids Trend labs (5) Esophageal cancer: Follows with medical oncology clinic Currently on chemotherapy w/ irinotecan Plan DVT prophylaxis: Heparin Attestations 2 Medical Necessity Statement*: Patient presents with severe sepsis in the setting of underlying malignancy on chemotherapy with expected hospitalization to cross 2 midnights for following of cultures, IV fluids, correction of electrolytes, IV antibiotics, telemetry, and supportive care. Coding Level of Care Code Acute Code for [facility] Fwd Diagnoses Severe sepsis A41.9; R65.20 Acute kidney injury N17.9 Hypokalemia E87.6 Hyponatremia E87.1 Esophageal cancer C15.9
--- NOTE | 2024-05-19 21:20 | CTR_ITS ---
PROCEDURE INFORMATION: Exam: CT Chest Without Contrast; Diagnostic Exam date and time: 05/19/2024 9:43 PM Age: 89 years old Clinical indication: Other: Diarrhea; Other: Sepsis; Additional info: Sepsis, esophageal cancer TECHNIQUE: Imaging protocol: Diagnostic computed tomography of the chest without contrast. Radiation optimization: All CT scans at this facility use at least one of these dose optimization techniques: automated exposure control; mA and/or kV adjustment per patient size (includes targeted exams where dose is matched to clinical indication); or iterative reconstruction. COMPARISON: CT chest abdpel w/*[id number] 02/26/2024 2:20 PM RADIATION DOSE METRICS: Total DLP (mGy-cm): 505 FINDINGS: Tubes, catheters and devices: A right-sided VAD is in good position with the catheter tip in the lower SVC. Cardiac pacemaker on the left with leads in satisfactory position. Lungs: Both lungs demonstrate diffuse centrilobular emphysematous changes. I see no lung mass or infiltrate. Pleural spaces: Unremarkable. No pneumothorax. No pleural effusion. Heart: Unremarkable. No cardiomegaly. No pericardial effusion. Coronary arteries: Coronary artery calcifications are noted. Esophagus: There is mild wall thickening involving the distal portion of the thoracic esophagus. Lymph nodes: Unremarkable. No enlarged lymph nodes. Vasculature: Unremarkable. No aortic aneurysm. Bones/joints: Unremarkable. No acute fracture. Soft tissues: Unremarkable. PROCEDURE INFORMATION: Exam: CT Abdomen And Pelvis Without Contrast Exam date and time: 05/19/2024 9:43 PM Age: 89 years old Clinical indication: Other: Diarrhea; Other: Sepsis; Additional info: Sepsis, esophageal cancer TECHNIQUE: Imaging protocol: Computed tomography of the abdomen and pelvis without contrast. Radiation optimization: All CT scans at this facility use at least one of these dose optimization techniques: automated exposure control; mA and/or kV adjustment per patient size (includes targeted exams where dose is matched to clinical indication); or iterative reconstruction. COMPARISON: CT chest abdpel w/*[id number] 02/26/2024 2:20 PM RADIATION DOSE METRICS: Total DLP (mGy-cm): 505 FINDINGS: Lungs: Lung bases are clear. No pleural effusion. Liver: Several rounded hypodense lesions are scattered throughout the liver. The largest measures 2 cm in diameter. Gallbladder and biliary ducts: Normal. No calcified stones. No ductal dilation. Pancreas: Normal. No ductal dilation. Spleen: Normal. No splenomegaly. Adrenal glands: Normal. No mass. Kidneys and ureters: Normal. No hydronephrosis. Stomach and bowel: Liquid stool is noted throughout much of the colon. Appendix: No evidence of appendicitis. Intraperitoneal space: Unremarkable. No free air. No significant fluid collection. Vasculature: Unremarkable. No abdominal aortic aneurysm. Lymph nodes: Unremarkable. No enlarged lymph nodes. Urinary bladder: The bladder demonstrates chronic wall thickening and trabeculation. Reproductive: The prostate gland is abnormally enlarged. Bones/joints: Unremarkable. No acute fracture. Soft tissues: Unremarkable. CT/[place] [id number] IMPRESSION: 1. Stable chronic lung changes 2. Stable mild wall thickening involving the esophagus IMPRESSION: 1. Stable hepatic cysts 2. Prostate enlargement with chronic bladder changes 3. Liquid stool in the colon as seen with diarrhea. No obvious colonic inflammation noted.
[2024-05-19 21:34] LABS: Lactic Acid level (Lactate) 1.8 mmol/L (0.5-2.2)
[2024-05-19 21:46] LABS: C Reactive Protein 39.1 mg/L (0.0-4.9)
[2024-05-19 21:54] LABS: Procalcitonin 0.63 ng/mL (0-0.5)
[2024-05-19] MEDS: MEROPENEM 2,000 MG in sodium chloride 0.9% (plus) 50 ML 100 MG IV (21:56)
[2024-05-20] VITALS (10 sets, daily range): BP systolic 92–100; BP diastolic 44–61; PULSE 67–99; RESP 16–18; TEMP 36.4–37; O2SAT 94–98; BMI 21.5
[2024-05-20] MEDS: vancomycin 1,500 MG/300 ML PIGGYBACK 200 MG IV (01:44)
[2024-05-20] MEDS: heparin 5,000 unit/mL INJ 1 mL 5000 UNIT SUBCUT ×2 (01:44→13:07)
[2024-05-20] MEDS: sodium chlor 0.9% + KCl 40 mEq 40 MEQ/1,000 ML BAG 75 MEQ IV ×2 (02:30→14:12)
[2024-05-20 05:13] LABS: Basophils # 0.1 10^3/uL (0.0-0.1); Basophils % 0.8 %; Eosinophils % 0.1 %; Hematocrit 28.4 % (37-53); Lymphocytes # 1.2 10^3/uL (0.8-4.8); Lymphocytes % 7.2 %; Mean Corpuscular HGB Conc 34.5 g/dL (30-55); Mean Corpuscular Hemoglobin 33.4 pg (27-33); Mean Corpuscular Volume 96.9 fl (82-101); Monocytes # 1.7 10^3/uL (0.2-0.9); Monocytes % 10.5 %; Neutrophils # 11.22 10^3/uL (1.8-7.7); Neutrophils % 69.8 %; Nucleated Red Blood Cells # 0.1 /100WBC; Nucleated Red Blood Cells % 0.3 %; Platelet Count 217 10^3/cmm (157-399); Red Blood Count 2.93 10^6/uL (3.85-5.65); Red Cell Distribution Width 14.3 % (12.1-15.1); White Blood Count 16.06 10^3/uL (3.29-11.43)
[2024-05-20 05:33] LABS: Alanine Aminotransferase 11 U/L (0-41); Albumin Level 2.3 g/dL (3.5-5.2); Alkaline Phosphatase 91 U/L (40-130); Anion Gap 13.9 (5-19); Aspartate Amino Transferase 15 U/L (0-40); Blood Urea Nitrogen 40 mg/dL (8-23); Calcium 7.1 mg/dL (8.5-10.5); Carbon Dioxide 22 mmol/L (22-29); Chloride 100 mmol/L (98-107); Globulin 1.8 g/dL (1.3-4.6); Glucose 111 mg/dL (65-115); Magnesium 2.4 mg/dL (1.7-2.3); Osmolality Calculated 286 mOsm/kg (285-295); Phosphorus 3.1 mg/dL (2.5-4.5); Sodium 133 mmol/L (136-145); Total Bilirubin 0.4 mg/dL (0.15-1.2); Total Protein 4.1 g/dL (6.6-8.7)
[2024-05-20 05:47] LABS: Slide Review Slide Review Perform
[2024-05-20 06:11] LABS: Potassium 2.9 mmol/L (3.5-5.1)
[2024-05-20 08:37] LABS: C.Diff PCR (Lab) NEGATIVE (Negative)
[2024-05-20] MEDS: meropenem 1,000 mg SDV 1000 MG IVP ×2 (09:28→22:17)
[2024-05-20] MEDS: potassium chloride ER 20 mEq Tablet 40 MEQ PO (09:28)
--- NOTE | 2024-05-20 10:41 | PC.CHAP ---
Pastoral Care Encounter/Spiritual Assessment Type of Contact [] Declined wood milling machine hand visit [] Patient/Family/Request visit [] Outpatient visit [] Follow-up visit [] Physician referral [] Code/Alert [x] Routine visit [] Staff referral [] Actively dying [] Patient sleeping [x] Family support [] [] Out of room [] Palliative care [] [] Receiving care in room [] Pre-surgical visit [] Trauma [] Long length of stay [] ICU visit [] Other: Relational/Emotional Strength [xx] Patient feels connected with others/family/visitors/staff [] Distress [] Loneliness/isolation [] Abandonment Spirituality of Patient [x] Person of Pallavi [] Attends Yazdanism of their Pallavi [x] Believes in Prayer [] Reads Bible or Orthodox materials [] There are Spiritual issues to be addressed Scuba Dive Training Instructor Interventions [x] Prayer [x] Active listening [] Non-anxious presence [x] Spiritual/emotional support [] Crisis/trauma care [] Spiritual counseling [] Bereavement support [] Provided bereavement packet [] Provided Bible/devotional materials [] Provided toy/stuffed animal, coloring book to patient or family member [] Provided Communion [] Anointing/[place]ullivan [] Salvation [x] Completed spiritual assessment [] Other: Impact on Illness or Injury [] Angry [] Fearful [] Anxious [] Often cries [] Exhaustion [] Unable to work [] Unable to attend protestant [] Unable to walk/stand [] Unable to read [] Unable to drive [] Unable to eat/drink [] Unable to sleep [] Unable to be with family [] Patient intubated [] Other: Summary Time spent with patient 5 min
--- NOTE | 2024-05-20 15:13 | P.PN_ITS ---
Subjective 2 Subjective: Patient was seen this morning, continues to complain of fatigue, malaise, no nausea, no vomiting, no fevers, no chills, no diarrhea, I also had a meeting with patient's son, he tells me that for the last 2 days, his father has not been able to get up and ambulate, patient reports a poor appetite, but he typically only consumes insurers 3 times daily, for his meals, with his esophageal cancer, does report dysphagia, globus sensation he tells me that his last session of chemotherapy was on 05/08/2024, does get diarrhea with chemotherapy, normally he is constipated denies any bloody or black stools Vitals/I&O/Wt Last Vital Signs Temp 98.0 F 05/20/24 11:25 Pulse 90 05/20/24 11:25 Resp 17 05/20/24 11:25 BP 93/50 05/20/24 11:25 Pulse Ox 97 05/20/24 11:25 O2 Del Method Room Air 05/20/24 11:25 05/20/24 05/20/24 05/20/24 06:59 14:59 22:59 Intake Total 540 / 1590 877.5 / 877.5 Balance 540 / 1590 877.5 / 877.5 Weight last 48 hrs Weight 62.505 kg Weight 62.369 kg Weight 65.771 kg Physical Exam 2 Const: COMMON NORMALS: no acute distress and patient oriented x3 OTHER: Presence of protein calorie malnutrition, bilateral temporal muscle wasting, fat pad thinning under bilateral clavicles, ribs, muscle wasting of bilateral arms thighs Resp: COMMON NORMALS: normal respiratory effort, No retractions, No use of accessory muscles and clear to auscultation bilaterally AUSCULTATION: clear to auscultation bilaterally Cardio: COMMON NORMALS: regular rate, regular rhythm, S1 normal heart sound present and S2 normal heart sound present RATE: regular rate RHYTHM: r egular rhythm HEART SOUNDS: S1 normal heart sound present and S2 normal heart sound present GI: COMMON NORMALS: Normal to inspection, nondistended, normoactive bowel sounds present and non-tender Extremity: COMMON NORMALS: no pedal edema Neuro: COMMON NORMALS: patient oriented x3 Psych: COMMON NORMALS: mental status grossly normal Data 05/20/24 04:48 05/20/24 04:48 Micro: Microbiology 05/19/24 18:24 Blood Culture - Preliminary Blood SPECIMEN COLLECTED 05/19/24 18:11 Blood Culture - Preliminary Blood SPECIMEN COLLECTED A&P Assessment and plan (1) Cancer cachexia: - Cancer cachexia, with protein calorie malnutrition, physical deconditioning, muscle wasting -Some component related to his chemotherapy, cancer -Another component related to dysphagia, difficulty swallowing, uses Ensure 3 times daily at home -PT OT -Consult speech - consult dietary (2) Muscle wasting: (3) Protein calorie malnutrition: (4) Physical deconditioning: (5) Dysphagia: (6) Severe sepsis: Presentation consistent with severe sepsis Source: Suspected GI infection SIRS: Leukocytosis, tachycardia with heart rate above 90 Endorgan damage, acute kidney injury Metabolic/lactic acidosis is present Status post more than 30 mL/kg body weight IV fluid bolus in ED Continue broad-spectrum antibiotics with meropenem and vancomycin MRSA screen requested Check inflammatory markers Continuous telemetry monitoring Monitor GI cultures ? Monitor blood cultures (7) Acute kidney injury: Suspect prerenal in the setting of sepsis, dehydration Provided IV hydration Avoid nephrotoxins Strict I's and O's Daily weights (8) Hypokalemia: Replace with IV potassium and IV fluids Telemetry monitoring Serial labs (9) Hyponatremia: Acute on chronic hyponatremia Suspect acute component related to hypovolemia from sepsis Status post NS boluses Start maintenance NS fluids Trend labs (10) Esophageal cancer: Follows with medical oncology clinic Currently on chemotherapy w/ irinotecan (11) Immunocompromised state: Chemotherapy 05/08/2024, isolation precautions (12) Chemotherapy induced diarrhea: (13) Dehydration: IV fluids Plan DVT prophylaxis: Heparin Attestations 2 Medical Necessity Statement*: Patient requires hospitalization, for dehydration, YUE, sepsis secondary to GI source, on chemotherapy, immunocompromise state Diagnoses Cancer cachexia 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
[2024-05-20 16:01] LABS: Creatine Phosphokinase 43 U/L (39-308)
[2024-05-20 16:05] LABS: Estmated Average Glucose 140; Hemoglobin A1C 6.5 % (4.0-6.0)
[2024-05-21] VITALS (9 sets, daily range): BP systolic 96–107; BP diastolic 50–62; PULSE 69–81; RESP 16–18; TEMP 36.3–37.1; O2SAT 94–97
[2024-05-21] MEDS: heparin 5,000 unit/mL INJ 1 mL 5000 UNIT SUBCUT ×2 (00:23→13:27)
[2024-05-21] MEDS: sodium chlor 0.9% + KCl 40 mEq 40 MEQ/1,000 ML BAG 75 MEQ IV ×2 (03:24→15:30)
[2024-05-21 05:15] LABS: Basophils # 0.1 10^3/uL (0.0-0.1); Basophils % 0.5 %; Eosinophils % 0.2 %; Hematocrit 28.5 % (37-53); Lymphocytes # 1.1 10^3/uL (0.8-4.8); Mean Corpuscular HGB Conc 33.7 g/dL (30-55); Mean Corpuscular Hemoglobin 33.3 pg (27-33); Mean Platelet Volume 10.7 fL (7.4-10.4); Monocytes # 1.7 10^3/uL (0.2-0.9); Monocytes % 13.7 %; Neutrophils # 7.99 10^3/uL (1.8-7.7); Neutrophils % 65.1 %; Nucleated Red Blood Cells % 0.2 %; Platelet Count 228 10^3/cmm (157-399); Red Blood Count 2.88 10^6/uL (3.85-5.65); Red Cell Distribution Width 14.9 % (12.1-15.1); White Blood Count 12.27 10^3/uL (3.29-11.43)
[2024-05-21 05:29] LABS: Blood Urea Nitrogen 17 mg/dL (8-23); Calcium 6.8 mg/dL (8.5-10.5); Carbon Dioxide 21 mmol/L (22-29); Chloride 107 mmol/L (98-107); Glucose 82 mg/dL (65-115); Osmolality Calculated 279 mOsm/kg (285-295); Sodium 134 mmol/L (136-145)
[2024-05-21 06:04] LABS: Slide Review Slide Review Perform
[2024-05-21] MEDS: meropenem 1,000 mg SDV 1000 MG IVP ×2 (09:10→17:41)
[2024-05-21 11:58] LABS: Erythrocyte Sedimentation Rate 3 mm/hr (0-10)
[2024-05-21 12:24] LABS: C Reactive Protein 14.3 mg/L (0.0-4.9); Ferritin 753 ng/mL (30-400)
[2024-05-21] MEDS: vancomycin 1,000 MG in sodium chloride 0.9% 250 ML 250 MG IV (13:28)
--- NOTE | 2024-05-21 14:56 | P.PN_ITS ---
Subjective 2 Subjective: Patient was seen this morning, he tells me that his diarrhea has come back, denies any fevers, chills, no nausea, vomiting or abdominal pain, no lightheadedness, no dizziness, does report persistent weakness, does report that he was supposed to have chemotherapy tomorrow, will cancel for now Vitals/I&O/Wt Last Vital Signs Temp 97.5 F L 05/21/24 12:00 Pulse 71 05/21/24 14:00 Resp 16 05/21/24 12:00 BP 100/58 05/21/24 12:00 Pulse Ox 96 05/21/24 12:00 O2 Del Method Room Air 05/21/24 12:00 05/20/24 05/21/24 05/21/24 22:59 06:59 14:59 Intake Total 600 / 1477.5 1110 / 2587.5 720 / 720 Output Total 200 / 200 400 / 600 Balance 400 / 1277.5 710 / 1987.5 720 / 720 Weight last 48 hrs Weight 65.726 kg Weight 62.505 kg Weight 62.369 kg Weight 65.771 kg Physical Exam 2 Const: COMMON NORMALS: no acute distress and patient oriented x3 Resp: COMMON NORMALS: normal respiratory effort, No retractions, No use of accessory muscles and clear to auscultation bilaterally AUSCULTATION: clear to auscultation bilaterally Cardio: COMMON NORMALS: regular rate, regular rhythm, S1 normal heart sound present and S2 normal heart sound present RATE: regular rate RHYTHM: r egular rhythm HEART SOUNDS: S1 normal heart sound present and S2 normal heart sound present GI: COMMON NORMALS: Normal to inspection, nondistended, normoactive bowel sounds present and non-tender Extremity: COMMON NORMALS: no pedal edema Neuro: COMMON NORMALS: patient oriented x3 Psych: COMMON NORMALS: mental status grossly normal Data 05/21/24 04:44 05/21/24 04:44 Micro: Microbiology 05/19/24 18:24 Blood Culture - Preliminary Blood NEGATIVE TO DATE 05/19/24 18:11 Blood Culture - Preliminary Blood NEGATIVE TO DATE A&P Assessment and plan (1) Cancer cachexia: - Cancer cachexia, with protein calorie malnutrition, physical deconditioning, muscle wasting -Some component related to his chemotherapy, cancer -Another component related to dysphagia, difficulty swallowing, uses Ensure 3 times daily at home -PT OT -Consult speech - consult dietary (2) Muscle wasting: (3) Protein calorie malnutrition: (4) Physical deconditioning: (5) Dysphagia: (6) Severe sepsis: Presentation consistent with severe sepsis Source: Suspected GI infection SIRS: Leukocytosis, tachycardia with heart rate above 90 Endorgan damage, acute kidney injury Metabolic/lactic acidosis is present Status post more than 30 mL/kg body weight IV fluid bolus in ED Continue broad-spectrum antibiotics with meropenem and vancomycin MRSA screen requested Check inflammatory markers Continuous telemetry monitoring Monitor GI cultures ? Monitor blood cultures (7) Acute kidney injury: Suspect prerenal in the setting of sepsis, dehydration Provided IV hydration Avoid nephrotoxins Strict I's and O's Daily weights (8) Hypokalemia: Replace with IV potassium and IV fluids Telemetry monitoring Serial labs (9) Hyponatremia: Acute on chronic hyponatremia Suspect acute component related to hypovolemia from sepsis Status post NS boluses Start maintenance NS fluids Trend labs (10) Esophageal cancer: Follows with medical oncology clinic Currently on chemotherapy w/ irinotecan (11) Immunocompromised state: Chemotherapy 05/08/2024, isolation precautions (12) Chemotherapy induced diarrhea: (13) Dehydration: IV fluids Plan DVT prophylaxis: Heparin CRP 14.3, ferritin 753, will obtain CMV studies, collect stool studies, monitor Attestations 2 Medical Necessity Statement*: Patient requires hospitalization for chemotherapy-induced diarrhea Diagnoses Cancer cachexia 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
[2024-05-21 14:58] LABS: Methicillin-Resist S.aureu PCR NOT DETECTED (NOT DETECTED)
[2024-05-22] VITALS (11 sets, daily range): BP systolic 103–115; BP diastolic 56–64; PULSE 64–77; RESP 14–20; TEMP 36.3–36.7; O2SAT 91–97
[2024-05-22] MEDS: meropenem 1,000 mg SDV 1000 MG IVP ×3 (01:12→17:11)
[2024-05-22] MEDS: heparin 5,000 unit/mL INJ 1 mL 5000 UNIT SUBCUT ×2 (01:12→13:33)
[2024-05-22 03:56] LABS: Hematocrit 30.1 % (37-53); Mean Corpuscular HGB Conc 32.9 g/dL (30-55); Mean Corpuscular Hemoglobin 33.3 pg (27-33); Mean Corpuscular Volume 101.3 fl (82-101); Mean Platelet Volume 10.2 fL (7.4-10.4); Platelet Count 203 10^3/cmm (157-399); Red Blood Count 2.97 10^6/uL (3.85-5.65); Red Cell Distribution Width 15.2 % (12.1-15.1); White Blood Count 12.49 10^3/uL (3.29-11.43)
[2024-05-22 04:16] LABS: Anion Gap 11.7 (5-19); Blood Urea Nitrogen 11 mg/dL (8-23); Calcium 6.8 mg/dL (8.5-10.5); Carbon Dioxide 18 mmol/L (22-29); Chloride 110 mmol/L (98-107); Creatinine Clr Calc Pharmacy 60.6835; Glucose 97 mg/dL (65-115); Osmolality Calculated 279 mOsm/kg (285-295); Potassium 4.7 mmol/L (3.5-5.1); Sodium 135 mmol/L (136-145)
[2024-05-22] MEDS: sodium chlor 0.9% + KCl 40 mEq 40 MEQ/1,000 ML BAG 75 MEQ IV (05:00)
[2024-05-22 05:36] LABS: Absolute Segmented Neutrophil 8.5 10/cmm (1.6-7.1); Band Neutrophils Absolute 1.2 10^3/cmm (0.0-1.2); Eosinophils 0 %; Lymphocytes 6 %; Lymphocytes Absolute 0.7 10^3/cmm (1.2-3.4); Monocytes Absolute 0.2 10^3/cmm (0.1-0.6); Segmented Neutrophils 68 %; Slide Review Slide Review Perform; Total Cells Counted 100 (0-100)
[2024-05-22 05:37] LABS: Absolute Neutrophil 9.7 10^3/cmm (1.4-6.5); Platelet Estimate Normal (Normal)
[2024-05-22 05:38] LABS: Anisocytosis Trace; Macrocytosis Trace
[2024-05-22 08:49] LABS: Cytomegalovirus Antibody (IGG) <0.60 U/mL; Cytomegalovirus Antibody (IGM) <30.00 AU/mL
[2024-05-22] MEDS: pyridoxine 50 mg Tablet 25 MG PO ×2 (08:51→17:11)
[2024-05-22] MEDS: sucralfate 1 gm/10 mL Oral Liq UDC PO ×3 (08:51→20:39)
[2024-05-22] MEDS: zinc gluconate 50 mg Tablet PO (08:51)
[2024-05-22] MEDS: morphine 4 mg/mL SDV 1 mL 2 MG IVP ×3 (09:16→18:09)
--- NOTE | 2024-05-22 09:47 | CT_ITS ---
WS: [id number] CT ABDOMEN PELVIS TECHNIQUE: Noncontrast CT of the abdomen and pelvis with coronal and sagittal reformatted images. CLINICAL INFORMATION: diarrhea, abdominal bloating COMPARISON: CT 05/19/2024 DLP: 466.[address] scans at [facility] use at least one of these dose optimization techniques: automated e xposure control; mA and/or kV adjustment per patient size (includes targeted exams where dose is matc hed to clinical indication); or iterative reconstruction. FINDINGS: Small bilateral pleural effusions. Bibasilar atelectasis. Pleural effusions are increased since 2023. Numerous hepatic cysts. Fluid within the distal esophagus with circumferential esophageal thick ening unchanged since the prior studies. Fluid distention of the stomach. Fluid distention with wall thickening involving the duodenal C-loop with surrounding induration. Recommend correlation for duode nitis. Gallbladder is contracted with fluid and edema in the gallbladder fossa. This may be on the basis of hepatic disease or volume overload. This could be further evaluated with ultrasound. Recommend correl ation with biliary studies. Fatty atrophy of the pancreas. Adrenal glands are normal. No hydronephros is in either kidney. Small LEFT renal cyst. Vascular calcification. Aortic calcification. Bladder cys tocele. Prostate calcification. Sigmoid diverticulosis. No evidence of acute diverticulitis. Fluid distended loops of small bowel. No evidence of high-grade small or large bowel obstruction. CT/CT abdomen pelvis wo con [id number] IMPRESSION: 1. Small bilateral pleural effusions are new from previous with bibasilar atel ectasis. 2. Fluid distended stomach with thickening and induration involving the duoden um suspicious for duodenitis. Recommend correlation for gastroparesis. 3. Fluid distended loops of small bowel although no evidence of small or large bowel obstruction. 4. Gallbladder is contracted with fluid in the gallbladder fossa may be due to hepatic disease or volume overload. Recommend correlation with biliary functio n studies. 5. No hydronephrosis in either kidney. 6. Diverticulosis. No evidence of acute diverticulitis. 7. Bladder cystocele. 8. No other significant changes.
--- NOTE | 2024-05-22 13:10 | P.PN_ITS ---
Subjective 2 Subjective: Patient was seen this morning, denies any nausea, no vomiting, does report more lower abdominal pain, denies any lightheadedness, dizziness continues to have diarrhea, Vitals/I&O/Wt Last Vital Signs Temp 97.8 F 05/22/24 11:51 Pulse 66 05/22/24 11:51 Resp 16 05/22/24 11:51 BP 103/61 05/22/24 11:51 Pulse Ox 95 05/22/24 11:51 O2 Del Method Room Air 05/22/24 11:51 05/21/24 05/22/24 05/22/24 22:59 06:59 14:59 Intake Total 1817.5 / 2537.5 1000 / 3537.5 1160 / 1160 Output Total 700 / 700 600 / 1300 Balance 1117.5 / 1837.5 400 / 2237.5 1160 / 1160 Weight last 48 hrs Weight 68.629 kg Weight 65.726 kg Physical Exam 2 Const: COMMON NORMALS: no acute distress and patient oriented x3 Resp: COMMON NORMALS: normal respiratory effort, No retractions, No use of accessory muscles and clear to auscultation bilaterally AUSCULTATION: clear to auscultation bilaterally Cardio: COMMON NORMALS: regular rate, regular rhythm, S1 normal heart sound present and S2 normal heart sound present RATE: regular rate RHYTHM: r egular rhythm HEART SOUNDS: S1 normal heart sound present and S2 normal heart sound present GI: OTHER: Abdomen is soft, slightly distended, good bowel sounds, no guarding, no rebound, rigidity Extremity: COMMON NORMALS: no pedal edema Neuro: COMMON NORMALS: patient oriented x3 Psych: COMMON NORMALS: mental status grossly normal Data 05/22/24 03:45 05/22/24 03:45 Micro: Microbiology 05/21/24 21:41 Stool Lactoferrin - Final Stool Occult Blood (FIT) - Final A&P Assessment and plan (1) Cancer cachexia: - Cancer cachexia, with protein calorie malnutrition, physical deconditioning, muscle wasting -Some component related to his chemotherapy, cancer -Another component related to dysphagia, difficulty swallowing, uses Ensure 3 times daily at home -PT OT -Consult speech - consult dietary (2) Muscle wasting: (3) Protein calorie malnutrition: (4) Physical deconditioning: (5) Dysphagia: (6) Severe sepsis: Presentation consistent with severe sepsis Source: Suspected GI infection SIRS: Leukocytosis, tachycardia with heart rate above 90 Endorgan damage, acute kidney injury Metabolic/lactic acidosis is present Status post more than 30 mL/kg body weight IV fluid bolus in ED Continue broad-spectrum antibiotics with meropenem and vancomycin MRSA screen requested Check inflammatory markers Continuous telemetry monitoring Monitor GI cultures ? Monitor blood cultures (7) Acute kidney injury: Suspect prerenal in the setting of sepsis, dehydration Provided IV hydration Avoid nephrotoxins Strict I's and O's Daily weights (8) Hypokalemia: Replace with IV potassium and IV fluids Telemetry monitoring Serial labs (9) Hyponatremia: Acute on chronic hyponatremia Suspect acute component related to hypovolemia from sepsis Status post NS boluses Start maintenance NS fluids Trend labs (10) Esophageal cancer: Follows with medical oncology clinic Currently on chemotherapy w/ irinotecan (11) Immunocompromised state: Chemotherapy 05/08/2024, isolation precautions (12) Chemotherapy induced diarrhea: (13) Dehydration: IV fluids Plan DVT prophylaxis: Heparin Plan for today, as patient continues to have diarrhea, repeat CT scan, IV fluids, monitor clinical status Attestations 2 Medical Necessity Statement*: Patient requires hospitalization for dehydration, recurrent diarrhea, Diagnoses Cancer cachexia 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
--- NOTE | 2024-05-22 16:40 | PC.OT ---
OT TREATMENT ATTEMPTED. PATIENT REPORTS THAT HE IS TOO TIRED AT THIS TIME.
[2024-05-22] MEDS: tamsulosin 0.4 mg Capsule PO (17:12)
[2024-05-22] MEDS: sodium chlor 0.9% + KCl 40 mEq 40 MEQ/1,000 ML BAG 50 MEQ IV (20:39)
[2024-05-22] MEDS: atorvastatin 40 mg Tablet 20 MG PO (20:39)
[2024-05-23] VITALS (11 sets, daily range): BP systolic 106–117; BP diastolic 50–65; PULSE 66–86; RESP 15–18; TEMP 36.3–36.7; O2SAT 94–98
[2024-05-23] MEDS: heparin 5,000 unit/mL INJ 1 mL 5000 UNIT SUBCUT ×2 (01:23→13:21)
[2024-05-23] MEDS: sucralfate 1 gm/10 mL Oral Liq UDC PO ×4 (01:23→20:50)
[2024-05-23] MEDS: meropenem 1,000 mg SDV 1000 MG IVP ×2 (01:23→09:56)
[2024-05-23 04:24] LABS: Basophils # 0.1 10^3/uL (0.0-0.1); Basophils % 0.7 %; Eosinophils # 0.1 10^3/uL (0.0-0.8); Eosinophils % 0.6 %; Hematocrit 29.9 % (37-53); Lymphocytes # 1.3 10^3/uL (0.8-4.8); Lymphocytes % 10.2 %; Mean Corpuscular HGB Conc 33.4 g/dL (30-55); Mean Corpuscular Hemoglobin 33.9 pg (27-33); Mean Corpuscular Volume 101.4 fl (82-101); Mean Platelet Volume 10.1 fL (7.4-10.4); Monocytes # 0.8 10^3/uL (0.2-0.9); Monocytes % 6.4 %; Neutrophils # 8.86 10^3/uL (1.8-7.7); Neutrophils % 72.4 %; Nucleated Red Blood Cells # 0.1 /100WBC; Nucleated Red Blood Cells % 0.6 %; Platelet Count 215 10^3/cmm (157-399); Red Blood Count 2.95 10^6/uL (3.85-5.65); Red Cell Distribution Width 15.4 % (12.1-15.1); White Blood Count 12.24 10^3/uL (3.29-11.43)
[2024-05-23 04:43] LABS: Anion Gap 11.9 (5-19); Blood Urea Nitrogen 8 mg/dL (8-23); Calcium 7.1 mg/dL (8.5-10.5); Carbon Dioxide 20 mmol/L (22-29); Chloride 107 mmol/L (98-107); Creatinine Clr Calc Pharmacy 62.9206; Glucose 109 mg/dL (65-115); Osmolality Calculated 277 mOsm/kg (285-295); Potassium 4.9 mmol/L (3.5-5.1); Sodium 134 mmol/L (136-145)
[2024-05-23 05:07] LABS: Slide Review Slide Review Perform
[2024-05-23] MEDS: finasteride 5 mg Tablet PO (05:50)
[2024-05-23] MEDS: morphine 4 mg/mL SDV 1 mL 2 MG IVP ×3 (05:50→16:39)
[2024-05-23] MEDS: pyridoxine 50 mg Tablet 25 MG PO ×2 (09:56→18:50)
[2024-05-23] MEDS: zinc gluconate 50 mg Tablet PO (09:56)
--- NOTE | 2024-05-23 12:10 | P.PN_ITS ---
Subjective 2 Subjective: Patient was seen this morning, denies any lightheadedness, dizziness, no nausea, no vomiting, no abdominal pain, Vitals/I&O/Wt Last Vital Signs Temp 97.4 F L 05/23/24 11:49 Pulse 85 05/23/24 11:49 Resp 17 05/23/24 11:49 BP 109/55 05/23/24 11:49 Pulse Ox 98 05/23/24 07:41 O2 Del Method Room Air 05/23/24 07:41 05/22/24 05/23/24 05/23/24 22:59 06:59 14:59 Intake Total 1640 / 2800 0 / 2800 480 / 480 Output Total 200 / 400 300 / 300 Balance 1440 / 2400 0 / 2400 180 / 180 Weight last 48 hrs Weight 71.804 kg Weight 68.629 kg Physical Exam 2 Const: COMMON NORMALS: no acute distress and patient oriented x3 Resp: COMMON NORMALS: normal respiratory effort, No retractions, No use of accessory muscles and clear to auscultation bilaterally AUSCULTATION: clear to auscultation bilaterally Cardio: COMMON NORMALS: regular rate, regular rhythm, S1 normal heart sound present and S2 normal heart sound present RATE: regular rate RHYTHM: r egular rhythm HEART SOUNDS: S1 normal heart sound present and S2 normal heart sound present GI: COMMON NORMALS: Normal to inspection, nondistended, normoactive bowel sounds present and non-tender Extremity: COMMON NORMALS: no pedal edema Neuro: COMMON NORMALS: patient oriented x3 Psych: COMMON NORMALS: mental status grossly normal Data 05/23/24 04:06 05/23/24 04:06 Micro: Microbiology 05/20/24 06:45 E. coli Shiga-like Toxin (PCR) - Final Stool Campylobacter (PCR) - Final A&P Assessment and plan (1) Cancer cachexia: - Cancer cachexia, with protein calorie malnutrition, physical deconditioning, muscle wasting -Some component related to his chemotherapy, cancer -Another component related to dysphagia, difficulty swallowing, uses Ensure 3 times daily at home -PT OT -Consult speech - consult dietary (2) Muscle wasting: (3) Protein calorie malnutrition: (4) Physical deconditioning: (5) Dysphagia: (6) Severe sepsis: Presentation consistent with severe sepsis Source: Suspected GI infection SIRS: Leukocytosis, tachycardia with heart rate above 90 Endorgan damage, acute kidney injury Metabolic/lactic acidosis is present Continue broad-spectrum antibiotics with meropenem and vancomycin MRSA screen requested Check inflammatory markers Continuous telemetry monitoring Monitor GI cultures ? Monitor blood cultures -Repeat CT scan CT/CT abdomen pelvis wo con [id number] IMPRESSION: 1. Small bilateral pleural effusions are new from previous with bibasilar atelectasis. 2. Fluid distended stomach with thickening and induration involving the duodenum suspicious for duodenitis. Recommend correlation for gastroparesis. 3. Fluid distended loops of small bowel although no evidence of small or large bowel obstruction. 4. Gallbladder is contracted with fluid in the gallbladder fossa may be due to hepatic disease or volume overload. Recommend correlation with biliary function studies. 5. No hydronephrosis in either kidney. 6. Diverticulosis. No evidence of acute diverticulitis. 7. Bladder cystocele. 8. No other significant changes. -Continue Protonix, Carafate (7) Acute kidney injury: Suspect prerenal in the setting of sepsis, dehydration Provided IV hydration Avoid nephrotoxins Strict I's and O's Daily weights (8) Hypokalemia: IV fluids Telemetry monitoring Serial labs (9) Hyponatremia: Acute on chronic hyponatremia Suspect acute component related to hypovolemia from sepsis Status post NS boluses Start maintenance NS fluids Trend labs (10) Esophageal cancer: Follows with medical oncology clinic Currently on chemotherapy w/ irinotecan (11) Immunocompromised state: Chemotherapy 05/08/2024, isolation precautions (12) Chemotherapy induced diarrhea: (13) Dehydration: IV fluids Plan DVT prophylaxis: Heparin Plan for today, up out of bed, PT OT, continue meropenem, follow blood cultures, follow stool studies Attestations 2 Medical Necessity Statement*: Patient requires hospitalization persistent diarrhea Diagnoses Cancer cachexia 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
[2024-05-23] MEDS: pantoprazole 40 mg SDV IVP (13:21)
[2024-05-23] MEDS: sodium chlor 0.9% + KCl 40 mEq 40 MEQ/1,000 ML BAG 50 MEQ IV (16:34)
[2024-05-23] MEDS: tamsulosin 0.4 mg Capsule PO (18:50)
[2024-05-23] MEDS: atorvastatin 40 mg Tablet 20 MG PO (20:49)
[2024-05-24] VITALS (11 sets, daily range): BP systolic 105–131; BP diastolic 53–74; PULSE 70–93; RESP 14–17; TEMP 36.4–36.6; O2SAT 94–99
[2024-05-24] MEDS: sucralfate 1 gm/10 mL Oral Liq UDC PO ×4 (01:29→20:44)
[2024-05-24] MEDS: heparin 5,000 unit/mL INJ 1 mL 5000 UNIT SUBCUT ×2 (01:29→13:25)
[2024-05-24] MEDS: pantoprazole 40 mg SDV IVP ×2 (01:29→13:25)
[2024-05-24 03:55] LABS: Basophils # 0.1 10^3/uL (0.0-0.1); Basophils % 0.5 %; Eosinophils # 0.1 10^3/uL (0.0-0.8); Eosinophils % 1.1 %; Lymphocytes # 1.2 10^3/uL (0.8-4.8); Lymphocytes % 11.2 %; Mean Corpuscular HGB Conc 32.6 g/dL (30-55); Mean Corpuscular Volume 101.3 fl (82-101); Mean Platelet Volume 10.8 fL (7.4-10.4); Monocytes # 0.7 10^3/uL (0.2-0.9); Monocytes % 6.4 %; Neutrophils # 7.95 10^3/uL (1.8-7.7); Neutrophils % 72.2 %; Nucleated Red Blood Cells # 0.1 /100WBC; Nucleated Red Blood Cells % 0.9 %; Platelet Count 244 10^3/cmm (157-399); Red Blood Count 3.06 10^6/uL (3.85-5.65); Red Cell Distribution Width 15.7 % (12.1-15.1); White Blood Count 11.01 10^3/uL (3.29-11.43)
[2024-05-24 04:21] LABS: Anion Gap 11.9 (5-19); Blood Urea Nitrogen 7 mg/dL (8-23); Calcium 7.3 mg/dL (8.5-10.5); Carbon Dioxide 21 mmol/L (22-29); Chloride 107 mmol/L (98-107); Creatinine Clr Calc Pharmacy 62.0023; Glucose 115 mg/dL (65-115); Osmolality Calculated 279 mOsm/kg (285-295); Potassium 4.9 mmol/L (3.5-5.1); Sodium 135 mmol/L (136-145)
[2024-05-24] MEDS: finasteride 5 mg Tablet PO (05:37)
[2024-05-24] MEDS: morphine 4 mg/mL SDV 1 mL 2 MG IVP ×2 (05:46→10:33)
[2024-05-24] MEDS: zinc gluconate 50 mg Tablet PO (08:24)
[2024-05-24] MEDS: pyridoxine 50 mg Tablet 25 MG PO ×2 (08:24→17:26)
[2024-05-24] MEDS: loperamide 2 mg Capsule PO ×3 (09:42→20:44)
[2024-05-24] MEDS: sodium chlor 0.9% + KCl 40 mEq 40 MEQ/1,000 ML BAG 50 MEQ IV (12:12)
--- NOTE | 2024-05-24 13:14 | P.PN_ITS ---
Subjective 2 Subjective: Patient was seen this morning, he had 2 episodes of diarrhea overnight, we discussed his stool studies are negative for Salmonella, Shigella, so we will start him on loperamide, will continue to monitor him closely plan to discharge in the next 24 hours Vitals/I&O/Wt Last Vital Signs Temp 97.5 F L 05/24/24 11:56 Pulse 73 05/24/24 11:56 Resp 14 05/24/24 11:56 BP 112/60 05/24/24 11:56 Pulse Ox 96 05/24/24 11:56 O2 Del Method Room Air 05/24/24 11:56 05/23/24 05/24/24 05/24/24 22:59 06:59 14:59 Intake Total 995.833 / 3998.482 6800.667 / 1101.667 Balance 995.833 / 8529.885 2366.667 / 1101.667 Weight last 48 hrs Weight 69.309 kg Weight 69.309 kg Weight 71.804 kg Physical Exam 2 Const: COMMON NORMALS: no acute distress and patient oriented x3 Resp: COMMON NORMALS: normal respiratory effort, No retractions, No use of accessory muscles and clear to auscultation bilaterally AUSCULTATION: clear to auscultation bilaterally Cardio: COMMON NORMALS: regular rate, regular rhythm, S1 normal heart sound present and S2 normal heart sound present RATE: regular rate RHYTHM: r egular rhythm HEART SOUNDS: S1 normal heart sound present and S2 normal heart sound present GI: COMMON NORMALS: Normal to inspection, nondistended, normoactive bowel sounds present and non-tender Extremity: COMMON NORMALS: no pedal edema Neuro: COMMON NORMALS: patient oriented x3 Psych: COMMON NORMALS: mental status grossly normal Data 05/24/24 02:54 05/24/24 02:54 Micro: Microbiology 05/20/24 06:45 E. coli Shiga-like Toxin (PCR) - Final Stool Salmonella/Shigella Culture - Final Campylobacter (PCR) - Final A&P Assessment and plan (1) Cancer cachexia: - Cancer cachexia, with protein calorie malnutrition, physical deconditioning, muscle wasting -Some component related to his chemotherapy, cancer -Another component related to dysphagia, difficulty swallowing, uses Ensure 3 times daily at home -PT OT -Consult speech - consult dietary (2) Muscle wasting: (3) Protein calorie malnutrition: (4) Physical deconditioning: (5) Dysphagia: (6) Severe sepsis: Presentation consistent with severe sepsis Source: Suspected GI infection SIRS: Leukocytosis, tachycardia with heart rate above 90 Endorgan damage, acute kidney injury Metabolic/lactic acidosis is present Continue broad-spectrum antibiotics with meropenem and vancomycin MRSA screen requested Check inflammatory markers Continuous telemetry monitoring Monitor GI cultures ? Monitor blood cultures -Repeat CT scan CT/CT abdomen pelvis wo con [id number] IMPRESSION: 1. Small bilateral pleural effusions are new from previous with bibasilar atelectasis. 2. Fluid distended stomach with thickening and induration involving the duodenum suspicious for duodenitis. Recommend correlation for gastroparesis. 3. Fluid distended loops of small bowel although no evidence of small or large bowel obstruction. 4. Gallbladder is contracted with fluid in the gallbladder fossa may be due to hepatic disease or volume overload. Recommend correlation with biliary function studies. 5. No hydronephrosis in either kidney. 6. Diverticulosis. No evidence of acute diverticulitis. 7. Bladder cystocele. 8. No other significant changes. -Continue Protonix, Carafate (7) Acute kidney injury: Suspect prerenal in the setting of sepsis, dehydration Provided IV hydration Avoid nephrotoxins Strict I's and O's Daily weights (8) Hypokalemia: IV fluids Telemetry monitoring Serial labs (9) Hyponatremia: Acute on chronic hyponatremia Suspect acute component related to hypovolemia from sepsis Status post NS boluses Start maintenance NS fluids Trend labs (10) Esophageal cancer: Follows with medical oncology clinic Currently on chemotherapy w/ irinotecan (11) Immunocompromised state: Chemotherapy 05/08/2024, isolation precautions (12) Chemotherapy induced diarrhea: (13) Dehydration: IV fluids Plan DVT prophylaxis: Heparin Plan for today, up out of bed, PT OT, DC continue meropenem, start Imodium, up out of bed Attestations 2 Medical Necessity Statement*: Patient requires hospitalization for chemotherapy-induced diarrhea Diagnoses Cancer cachexia 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
[2024-05-24] MEDS: tamsulosin 0.4 mg Capsule PO (17:26)
[2024-05-24] MEDS: atorvastatin 40 mg Tablet 20 MG PO (20:43)
[2024-05-25] VITALS (10 sets, daily range): BP systolic 105–132; BP diastolic 57–72; PULSE 62–85; RESP 16–18; TEMP 36.6–36.7; O2SAT 96–98
[2024-05-25] MEDS: sucralfate 1 gm/10 mL Oral Liq UDC PO ×4 (01:15→20:22)
[2024-05-25] MEDS: heparin 5,000 unit/mL INJ 1 mL 5000 UNIT SUBCUT ×2 (01:16→12:30)
[2024-05-25] MEDS: pantoprazole 40 mg SDV IVP ×2 (01:18→12:30)
[2024-05-25 05:10] LABS: Basophils # 0.1 10^3/uL (0.0-0.1); Basophils % 0.6 %; Eosinophils # 0.1 10^3/uL (0.0-0.8); Eosinophils % 1.5 %; Hematocrit 30.4 % (37-53); Lymphocytes # 1.2 10^3/uL (0.8-4.8); Lymphocytes % 12.4 %; Mean Corpuscular HGB Conc 33.9 g/dL (30-55); Mean Corpuscular Hemoglobin 34.6 pg (27-33); Mean Platelet Volume 10.7 fL (7.4-10.4); Monocytes # 0.7 10^3/uL (0.2-0.9); Monocytes % 6.8 %; Neutrophils # 6.99 10^3/uL (1.8-7.7); Neutrophils % 72.6 %; Nucleated Red Blood Cells % 0.3 %; Platelet Count 240 10^3/cmm (157-399); Red Blood Count 2.98 10^6/uL (3.85-5.65); Red Cell Distribution Width 15.9 % (12.1-15.1); White Blood Count 9.64 10^3/uL (3.29-11.43)
[2024-05-25 05:27] LABS: Anion Gap 12.7 (5-19); Blood Urea Nitrogen 4 mg/dL (8-23); Calcium 7.6 mg/dL (8.5-10.5); Carbon Dioxide 22 mmol/L (22-29); Chloride 109 mmol/L (98-107); Creatinine Clr Calc Pharmacy 61.2341; Glucose 104 mg/dL (65-115); Osmolality Calculated 285 mOsm/kg (285-295); Potassium 4.7 mmol/L (3.5-5.1); Sodium 139 mmol/L (136-145)
[2024-05-25] MEDS: finasteride 5 mg Tablet PO (05:43)
[2024-05-25] MEDS: zinc gluconate 50 mg Tablet PO (07:31)
[2024-05-25] MEDS: pyridoxine 50 mg Tablet 25 MG PO ×2 (07:31→17:43)
[2024-05-25] MEDS: sodium chlor 0.9% + KCl 40 mEq 40 MEQ/1,000 ML BAG 50 MEQ IV (08:29)
[2024-05-25] MEDS: acetaminophen 325 mg Tablet 650 MG PO (11:28)
[2024-05-25] MEDS: morphine 4 mg/mL SDV 1 mL 2 MG IVP (13:31)
--- NOTE | 2024-05-25 15:42 | P.PN_ITS ---
Subjective 2 Subjective: Patient was seen this morning, denies any lightheadedness, no dizziness, no nausea, no vomiting, continues to have diarrhea although improving, he feels dehydrated he tells me, continues to feel weak Vitals/I&O/Wt Last Vital Signs Temp 97.8 F 05/25/24 12:00 Pulse 67 05/25/24 14:00 Resp 18 05/25/24 13:31 BP 132/70 05/25/24 12:00 Pulse Ox 98 05/25/24 12:00 O2 Del Method Room Air 05/25/24 12:00 05/25/24 05/25/24 05/25/24 06:59 14:59 22:59 Intake Total 1840 / 1840 Output Total 300 / 300 Balance 1540 / 1540 Weight last 48 hrs Weight 67.222 kg Weight 67.222 kg Weight 69.309 kg Weight 69.309 kg Physical Exam 2 Const: COMMON NORMALS: no acute distress and patient oriented x3 Resp: COMMON NORMALS: normal respiratory effort, No retractions, No use of accessory muscles and clear to auscultation bilaterally AUSCULTATION: clear to auscultation bilaterally Cardio: COMMON NORMALS: regular rate, regular rhythm, S1 normal heart sound present and S2 normal heart sound present RATE: regular rate RHYTHM: r egular rhythm HEART SOUNDS: S1 normal heart sound present and S2 normal heart sound present GI: COMMON NORMALS: Normal to inspection, nondistended, normoactive bowel sounds present and non-tender Extremity: COMMON NORMALS: capillary refill normal and no pedal edema Neuro: COMMON NORMALS: patient oriented x3 Psych: COMMON NORMALS: mental status grossly normal Data 05/25/24 04:55 05/25/24 04:55 Micro: Microbiology 05/19/24 18:24 Blood Culture - Final Blood NO GROWTH AFTER 5 DAYS 05/19/24 18:11 Blood Culture - Final Blood NO GROWTH AFTER 5 DAYS A&P Assessment and plan (1) Cancer cachexia: - Cancer cachexia, with protein calorie malnutrition, physical deconditioning, muscle wasting -Some component related to his chemotherapy, cancer -Another component related to dysphagia, difficulty swallowing, uses Ensure 3 times daily at home -PT OT -Consult speech - consult dietary (2) Muscle wasting: (3) Protein calorie malnutrition: (4) Physical deconditioning: (5) Dysphagia: (6) Severe sepsis: Presentation consistent with severe sepsis Source: Suspected GI infection SIRS: Leukocytosis, tachycardia with heart rate above 90 Endorgan damage, acute kidney injury Metabolic/lactic acidosis is present Continue broad-spectrum antibiotics with meropenem and vancomycin MRSA screen requested Check inflammatory markers Continuous telemetry monitoring Monitor GI cultures, so far negative ? Monitor blood cultures, so far no growth -Repeat CT scan CT/CT abdomen pelvis wo con [id number] IMPRESSION: 1. Small bilateral pleural effusions are new from previous with bibasilar atelectasis. 2. Fluid distended stomach with thickening and induration involving the duodenum suspicious for duodenitis. Recommend correlation for gastroparesis. 3. Fluid distended loops of small bowel although no evidence of small or large bowel obstruction. 4. Gallbladder is contracted with fluid in the gallbladder fossa may be due to hepatic disease or volume overload. Recommend correlation with biliary function studies. 5. No hydronephrosis in either kidney. 6. Diverticulosis. No evidence of acute diverticulitis. 7. Bladder cystocele. 8. No other significant changes. ? Completed meropenem therapy for 5 days His leukocytosis has resolved, no fevers, cultures so far unremarkable -Continue Protonix, Carafate (7) Acute kidney injury: Suspect prerenal in the setting of sepsis, dehydration Provided IV hydration Avoid nephrotoxins Strict I's and O's Daily weights (8) Hypokalemia: Resolved Telemetry monitoring Serial labs (9) Hyponatremia: Resolved Acute on chronic hyponatremia Suspect acute component related to hypovolemia from sepsis Status post NS boluses Start maintenance NS fluids Trend labs (10) Esophageal cancer: Follows with medical oncology clinic Currently on chemotherapy w/ irinotecan (11) Immunocompromised state: Chemotherapy 05/08/2024, isolation precautions (12) Chemotherapy induced diarrhea: - Continues to have chemotherapy induced diarrhea -Continue IV fluids -Plan for today patient has been started on loperamide yesterday which helps but has persistent diarrhea -Start Lomotil today -Will do combination of loperamide and Lomotil, to try to control his diarrhea the next 24 hours -Still waiting on ova and parasites for the stool -CMV testing was negative (13) Dehydration: IV fluids Plan DVT prophylaxis: Heparin Plan for today, up out of bed, PT OT, Imodium, Lomotil Attestations 2 Medical Necessity Statement*: Patient requires hospitalization for chemotherapy induced diarrhea, dehydration Diagnoses Cancer cachexia 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
[2024-05-25] MEDS: diphenoxylate/atropine Tablet 1 TAB PO (16:03)
[2024-05-25] MEDS: tamsulosin 0.4 mg Capsule PO (17:43)
[2024-05-25] MEDS: atorvastatin 40 mg Tablet 20 MG PO (20:22)
[2024-05-26] VITALS: BP 125/56; PULSE 72; RESP 16; TEMP 36.4; O2SAT 98
[2024-05-26] MEDS: pantoprazole 40 mg SDV IVP ×2 (01:17→11:42)
[2024-05-26] MEDS: heparin 5,000 unit/mL INJ 1 mL 5000 UNIT SUBCUT ×2 (01:17→11:44)
[2024-05-26] MEDS: sucralfate 1 gm/10 mL Oral Liq UDC PO ×2 (01:20→07:56)
[2024-05-26 03:02] LABS: Basophils # 0.1 10^3/uL (0.0-0.1); Basophils % 0.8 %; Eosinophils # 0.1 10^3/uL (0.0-0.8); Eosinophils % 1.6 %; Hematocrit 29.4 % (37-53); Lymphocytes % 13.1 %; Mean Corpuscular Hemoglobin 33.7 pg (27-33); Mean Corpuscular Volume 102.1 fl (82-101); Mean Platelet Volume 10.8 fL (7.4-10.4); Monocytes # 0.6 10^3/uL (0.2-0.9); Monocytes % 8.1 %; Neutrophils # 5.64 10^3/uL (1.8-7.7); Neutrophils % 71.2 %; Nucleated Red Blood Cells % 0.4 %; Platelet Count 233 10^3/cmm (157-399); Red Blood Count 2.88 10^6/uL (3.85-5.65); Red Cell Distribution Width 16.3 % (12.1-15.1); White Blood Count 7.92 10^3/uL (3.29-11.43)
[2024-05-26 03:20] LABS: Anion Gap 9.8 (5-19); Blood Urea Nitrogen 5 mg/dL (8-23); Calcium 7.5 mg/dL (8.5-10.5); Carbon Dioxide 23 mmol/L (22-29); Chloride 108 mmol/L (98-107); Creatinine Clr Calc Pharmacy 61.2341; Glucose 106 mg/dL (65-115); Osmolality Calculated 280 mOsm/kg (285-295); Potassium 4.8 mmol/L (3.5-5.1); Sodium 136 mmol/L (136-145)
[2024-05-26 04:00] VITALS: BP 114/55; PULSE 71; RESP 16; TEMP 37.1; O2SAT 97
[2024-05-26] MEDS: sodium chlor 0.9% + KCl 40 mEq 40 MEQ/1,000 ML BAG 50 MEQ IV (04:45)
[2024-05-26 05:27] VITALS: PULSE 78
[2024-05-26] MEDS: finasteride 5 mg Tablet PO (06:05)
[2024-05-26 07:47] VITALS: BP 110/64; PULSE 66; RESP 16; TEMP 36.9; O2SAT 96
[2024-05-26] MEDS: pyridoxine 50 mg Tablet 25 MG PO (07:56)
[2024-05-26] MEDS: zinc gluconate 50 mg Tablet PO (07:56)
--- NOTE | 2024-05-26 10:42 | PM.DCS ---
Discharge Providers Date of Admission: 05/19/24 22:59 Date of Discharge: May 26, 2024 Attending Provider at Admission: Juarez Presley MD Attending Provider at Discharge: Jose Luis Ghotra MD Primary Care Provider: Angelica Cedeño MD Diagnoses at Discharge Discharge Diagnosis (1) Cancer cachexia: Status: Acute (2) Muscle wasting: Status: Acute (3) Protein calorie malnutrition: Status: Acute (4) Physical deconditioning: Status: Acute (5) Dysphagia: Status: Acute (6) Severe sepsis: Status: Acute (7) Acute kidney injury: Status: Acute (8) Hypokalemia: Status: Acute (9) Hyponatremia: Status: Acute (10) Esophageal cancer: Status: Acute (11) Immunocompromised state: Status: Acute (12) Chemotherapy induced diarrhea: Status: Acute (13) Dehydration: Status: Acute Reason for Visit Reason for Visit: NVD/ weakness Hospital Course Hospital Course 89-year-old male with history of esophageal cancer on chemotherapy presented to the hospital with chief complaint of diarrhea. Patient was extremely dehydrated he was started on broad-spectrum antibiotic for sepsis related to GI source. Cultures remain negative. Patient remained afebrile. He finished 5 days of meropenem, C. difficile ruled out. Compile a bacterial Salmonella Shigella toxin is negative. CMV is negative as well. He was kept on IV fluids, he was given Lomotil which improved his intermittent episodes of diarrhea. Steroids were not administered during this hospitalization. In the last 24 hours before discharge from the hospital patient has had no BM. He is wanting to go home, tolerating diet. Physical Exam Narrative: Signs of dehydration improved Hemodynamically stable GCS 15 Currently on room air Watching television Discharge Data Studies Completed and Pending Completed Studies During Hospitalization Category Date Time Status CT abdomen pelvis wo con [id number] Routine Cat Scan 05/22/24 09:[address] chest abdomen pelvis [[place] [id number] Cat Scan 05/19/24 21:20 Completed ] Stat XR chest 1V portable [id number] Stat Exams 05/19/24 17:43 Completed Pending at discharge Category Date Time Status OVA and Parasites, Conc and PE Routine Lab 05/20/24 06:45 Results Salmonella / Shigella / Campy Routine Lab 05/20/24 06:45 Results Radiology Impressions Chest X-Ray 05/19/24 17:43 IMPRESSION: No acute findings. Chest/Abdomen/Pelvis CT 05/19/24 21:20 IMPRESSION: 1. Stable chronic lung changes 2. Stable mild wall thickening involving the esophagus IMPRESSION: 1. Stable hepatic cysts 2. Prostate enlargement with chronic bladder changes 3. Liquid stool in the colon as seen with diarrhea. No obvious colonic inflammation noted. Abdomen/Pelvis CT 05/22/24 09:47 IMPRESSION: 1. Small bilateral pleural effusions are new from previous with bibasilar atelectasis. 2. Fluid distended stomach with thickening and induration involving the duodenum suspicious for duodenitis. Recommend correlation for gastroparesis. 3. Fluid distended loops of small bowel although no evidence of small or large bowel obstruction. 4. Gallbladder is contracted with fluid in the gallbladder fossa may be due to hepatic disease or volume overload. Recommend correlation with biliary function studies. 5. No hydronephrosis in either kidney. 6. Diverticulosis. No evidence of acute diverticulitis. 7. Bladder cystocele. 8. No other significant changes. Laboratory Results WBC 7.92 10^3/uL (3.29-11.43) 05/26/24 02:15 RBC 2.88 10^6/uL (3.85-5.65) L 05/26/24 02:15 Hgb 9.70 g/dL (11.27-16.99) L 05/26/24 02:15 Hct 29.4 % (37-53) L 05/26/24 02:15 MCV 102.1 fl (82-101) H 05/26/24 02:15 MCH 33.7 pg (27-33) H 05/26/24 02:15 MCHC 33.0 g/dL (30-55) 05/26/24 02:15 RDW 16.3 % (12.1-15.1) H 05/26/24 02:15 Plt Count 233 10^3/cmm (157-399) 05/26/24 02:15 MPV 10.8 fL (7.4-10.4) H 05/26/24 02:15 Neut % (Auto) 71.2 % 05/26/24 02:15 Lymph % (Auto) 13.1 % 05/26/24 02:15 Graves % (Auto) 8.1 % 05/26/24 02:15 Eos % (Auto) 1.6 % 05/26/24 02:15 Baso % (Auto) 0.8 % 05/26/24 02:15 Neut # (Auto) 5.64 10^3/uL (1.8-7.7) 05/26/24 02:15 Lymph # (Auto) 1.0 10^3/uL (0.8-4.8) 05/26/24 02:15 Graves # (Auto) 0.6 10^3/uL (0.2-0.9) 05/26/24 02:15 Eos # (Auto) 0.1 10^3/uL (0.0-0.8) 05/26/24 02:15 Baso # (Auto) 0.1 10^3/uL (0.0-0.1) 05/26/24 02:15 Nucleated RBC % (auto) 0.4 % 05/26/24 02:15 Total Counted 100 (0-100) 05/22/24 03:45 Atypical Lymphs % 0.0 % (0-5) 05/22/24 03:45 Absolute Neutrophils 9.7 10^3/cmm (1.4-6.5) H 05/22/24 03:45 Segmented Neutrophils 68 % 05/22/24 03:45 Abs Segm Neuts (Man) 8.5 10/cmm (1.6-7.1) H 05/22/24 03:45 Band Neutrophils 10.0 % 05/22/24 03:45 Abs Band Neuts (Man) 1.2 10^3/cmm (0.0-1.2) 05/22/24 03:45 Absolute Lymphocytes 0.7 10^3/cmm (1.2-3.4) L 05/22/24 03:45 Lymphocytes (Manual) 6 % 05/22/24 03:45 Monocytes (Manual) 2.0 % 05/22/24 03:45 Absolute Monocytes 0.2 10^3/cmm (0.1-0.6) 05/22/24 03:45 Eosinophils (Manual) 0 % 05/22/24 03:45 Absolute Eosinophils 0.0 10^3/cmm (0.0-0.7) 05/22/24 03:45 Basophils (Manual) 0.0 % 05/22/24 03:45 Absolute Basophils 0.0 10^3/cmm (0.0-0.2) 05/22/24 03:45 Metamyelocytes 5.0 % 05/22/24 03:45 Myelocytes 9.0 % 05/22/24 03:45 Nucleated RBCs # 0.0 /100WBC 05/26/24 02:15 Smudge Cells Trace 05/19/24 18:11 Platelet Estimate Normal (Normal) 05/22/24 03:45 Anisocytosis Trace 05/22/24 03:45 Macrocytosis Trace 05/22/24 03:45 ESR 3 mm/hr (0-10) 05/21/24 04:44 Sodium 136 mmol/L (136-145) 05/26/24 02:15 Potassium 4.8 mmol/L (3.5-5.1) 05/26/24 02:15 Chloride 108 mmol/L (98-107) H 05/26/24 02:15 Carbon Dioxide 23 mmol/L (22-29) 05/26/24 02:15 Anion Gap 9.8 (5-19) 05/26/24 02:15 BUN 5 mg/dL (8-23) L 05/26/24 02:15 Creatinine 0.4 mg/dL (0.7-1.2) L 05/26/24 02:15 GFR Calculation Not Reportable 05/26/24 02:15 Glucose 106 mg/dL (65-115) 05/26/24 02:15 Estimat Average Glucose 140 05/20/24 04:48 Hemoglobin A1c 6.5 % (4.0-6.0) H 05/20/24 04:48 Calculated Osmolality 280 mOsm/kg (285-295) L 05/26/24 02:15 Lactic Acid 4.1 mmol/L (0.5-2.2) H* 05/19/24 18:11 Lactic Acid (Sepsis) 1.8 mmol/L (0.5-2.2) 05/19/24 21:13 Calcium 7.5 mg/dL (8.5-10.5) L 05/26/24 02:15 Phosphorus 3.1 mg/dL (2.5-4.5) 05/20/24 04:48 Magnesium 2.4 mg/dL (1.7-2.3) H 05/20/24 04:48 Ferritin 753 ng/mL (30-400) H 05/21/24 04:44 Total Bilirubin 0.4 mg/dL (0.15-1.2) 05/20/24 04:48 AST 15 U/L (0-40) 05/20/24 04:48 ALT 11 U/L (0-41) 05/20/24 04:48 Alkaline Phosphatase 91 U/L (40-130) 05/20/24 04:48 Creatine Kinase 43 U/L (39-308) 05/20/24 04:48 C-Reactive Protein 14.3 mg/L (0.0-4.9) H 05/21/24 04:44 Total Protein 4.1 g/dL (6.6-8.7) L D 05/20/24 04:48 Albumin 2.3 g/dL (3.5-5.2) L 05/20/24 04:48 Globulin 1.8 g/dL (1.3-4.6) 05/20/24 04:48 Lipase 21 U/L (13-60) 05/19/24 18:11 Procalcitonin 0.20 ng/mL (0-0.5) 05/21/24 04:44 Urine Color Dark yellow (Yellow) A 05/19/24 20:12 Urine Appearance Clear (CLEAR) 05/19/24 20:12 Urine pH 5.0 (5-7) 05/19/24 20:12 Ur Specific [place] 1.021 (1.005-1.030) 05/19/24 20:12 Urine Protein Trace (Negative) A 05/19/24 20:12 Urine Glucose (UA) Negative (Normal) 05/19/24 20:12 Urine Ketones Trace (Negative) 05/19/24 20:12 Urine Blood Negative (Negative) 05/19/24 20:12 Urine Nitrate Negative (Negative) 05/19/24 20:12 Urine Bilirubin 1+ (Negative) H 05/19/24 20:12 Urine Urobilinogen 1.0 mg/dL (Negative) 05/19/24 20:12 Ur Leukocyte Esterase Trace (Negative) A 05/19/24 20:12 Urine RBC 0-4 /hpf (0-2) H 05/19/24 20:12 Urine WBC 0-4 /hpf (0-5) H 05/19/24 20:12 Ur Squamous Epith Cells 0-4 /hpf (0-5) H 05/19/24 20:12 Amorphous Sediment Not Reportable 05/19/24 20:12 Urine Bacteria None /hpf (NONE) 05/19/24 20:12 Hyaline Casts 14.87 /lpf 05/19/24 20:12 C. difficile (PCR) Negative (Negative) 05/19/24 06:45 CMV IgG Ab <0.60 U/mL 05/21/24 04:44 CMV IgM Ab <30.00 AU/mL 05/21/24 04:44 MRSA (PCR) Not detected (NOT DETECTED) 05/20/24 09:38 Vitals Last Vital Signs Temp 98.5 F 05/26/24 07:47 Pulse 66 05/26/24 07:47 Resp 16 05/26/24 07:47 BP 110/64 05/26/24 07:47 Pulse Ox 96 05/26/24 07:47 O2 Del Method Room Air 05/26/24 07:47 Discharge Plan Discharge Patient Disposition: Home Condition: Stable Prescriptions: New loperamide 2 mg Capsule 2 mg PO TID PRN (Reason: Diarrhea) Qty: 10 0RF Continued furosemide 20 mg tablet 20 mg PO QAM pyridoxine (vitamin B6) 50 mg tablet 25 mg PO BID Spiriva Respimat 1.25 mcg/actuation mist 2 puff inhalation DAILY Qty: 4 6RF cilostazol 50 mg tablet 50 mg PO BID Qty: 180 3RF zinc acetate 50 mg (zinc) capsule 50 mg PO DAILY simvastatin 80 mg Tablet 40 mg PO BEDTIME finasteride 5 mg Tablet 5 mg PO QAM cholecalciferol (vitamin D3) [Vitamin D3] 25 mcg (1,000 unit) Capsule 50 mcg PO DAILY tamsulosin [Flomax] 0.4 mg Capsule 0.4 mg PO QPM nitroglycerin [Nitrostat] 0.4 mg Tablet, Sublingual 0.4 mg SUBLINGUAL Q5M PRN (Reason: Chest Pain) Rx Instructions: do not exceed 3 doses per episode lisinopril 5 mg Tablet 2.5 mg PO QAM verapamil 120 mg tablet 120 mg PO QAM pantoprazole [Protonix] 40 mg Tablet,Delayed Release (Dr/Ec) 40 mg PO BID sucralfate 100 mg/mL Suspension 10 ml PO Q6H Rx Instructions: swish in mouth and swallow; use after food/drink morphine 10 mg/5 mL solution 5 - 10 mg PO Q6H PRN (Reason: pain) Discharge Orders: Discharge Order (Routine); Ordered 05/26/24 Ordered By: Dulce Linn Referrals: Tray Mcclellan DO [Emergency Department] - Patient Instructions: Opioid Safety Discharge Attestations Time Spent in Discharge Care*: greater than 30 min Status at Discharge: Cognitive status at discharge: cognitively intact, Behavioral status at discharge: cooperative, Quality Metrics Clinical Quality Measures [ No reported AMI, CVA or VTE this stay] Coding Level of Care Code Acute Code for Chg Fwd Diagnoses Cancer cachexia 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
[2024-05-26 11:15] VITALS: BP 106/57; PULSE 66; RESP 16; TEMP 36.9; O2SAT 99
--- NOTE | 2024-05-26 12:45 | PC.SOCIAL ---
IMM update Pg. 2 of IMM updated and reviewed with patient, who verbalized understanding. Copy provided.
[2024-05-26 13:04] VITALS: BP 106/57; PULSE 66; RESP 16; TEMP 36.9; O2SAT 99
== END 2024-05-26 12:50 | disposition home or self-care (01) | DRG 872 ==
LOC: ER 19:06 → MEDSURG 22:59
PROVIDERS: Family Medicine; Admitting Provider Internal Medicine; Emergency Provider Emergency Medicine; PCP Family Medicine; Visit Provider Family Medicine
DX: A41.9 Sepsis, unspecified organism (principal); N17.9 Acute kidney failure, unspecified; C15.9 Malignant neoplasm of esophagus, unspecified; E87.1 Hypo-osmolality and hyponatremia; E87.20 Acidosis, unspecified; E46 Unspecified protein-calorie malnutrition; D84.821 Immunodeficiency due to drugs; K52.1 Toxic gastroenteritis and colitis; R65.20 Severe sepsis without septic shock; Z79.60 Long term (current) use of unspecified immunomodulators and immunosuppressants; J44.9 Chronic obstructive pulmonary disease, unspecified; I25.10 Atherosclerotic heart disease of native coronary artery without angina pectoris; E87.6 Hypokalemia; I50.9 Heart failure, unspecified; I11.0 Hypertensive heart disease with heart failure; E11.51 Type 2 diabetes mellitus with diabetic peripheral angiopathy without gangrene; N40.0 Benign prostatic hyperplasia without lower urinary tract symptoms; Z95.0 Presence of cardiac pacemaker; Z93.1 Gastrostomy status; Z95.828 Presence of other vascular implants and grafts; Z87.891 Personal history of nicotine dependence; Z68.23 Body mass index [BMI] 23.0-23.9, adult; T45.1X5A Adverse effect of antineoplastic and immunosuppressive drugs, initial encounter; Z87.01 Personal history of pneumonia (recurrent); E78.5 Hyperlipidemia, unspecified; K21.9 Gastro-esophageal reflux disease without esophagitis; R13.10 Dysphagia, unspecified; E86.0 Dehydration
CPT/HCPCS: 36415; 36591; 71045; 71250; 74176; 80048; 80053; 81003; 81015; 82274; 82550; 82728; 83036; 83605; 83630; 83690; 83735; 84100; 84145; 85007; 85025; 85651; 86140; 87040; 87045; 87177; 87209; 87427; 87449; 87493; 87641; 92523; 92610; 93005; 96365; 96372; 97110; 97116; 97161; 97166; 97530; 97535; 99285; J1642; J1644; J2185; J2270; J2470; J3370; J7030; J7040; J7050

== ENCOUNTER → 2024-06-11 10:00 | Outpatient (BNVA) | payer OTHER, SELFPAY | PROVIDERS: PCP Family Medicine; Visit Provider Internal Medicine | DX: I25.10 Atherosclerotic heart disease of native coronary artery without angina pectoris (principal); C15.5 Malignant neoplasm of lower third of esophagus; I73.9 Peripheral vascular disease, unspecified; K92.0 Hematemesis; K92.2 Gastrointestinal hemorrhage, unspecified; E11.9 Type 2 diabetes mellitus without complications; I10 Essential (primary) hypertension; Z87.891 Personal history of nicotine dependence | CPT/HCPCS: 99214 ==

== ENCOUNTER 2024-06-17 08:08 | Oncology outpatient (recurring) (ONCR) | payer OTHER, SELFPAY ==
[2024-06-05 08:59] LABS: Basophils # 0.1 10^3/uL (0.0-0.1); Basophils % 1.5 %; Eosinophils # 0.2 10^3/uL (0.0-0.8); Eosinophils % 3.7 %; Hematocrit 34.9 % (37-53); Lymphocytes # 0.7 10^3/uL (0.8-4.8); Lymphocytes % 11.5 %; Mean Corpuscular HGB Conc 32.7 g/dL (30-55); Mean Corpuscular Hemoglobin 34.9 pg (27-33); Mean Corpuscular Volume 106.7 fl (82-101); Mean Platelet Volume 9.5 fL (7.4-10.4); Monocytes # 0.7 10^3/uL (0.2-0.9); Neutrophils # 4.19 10^3/uL (1.8-7.7); Nucleated Red Blood Cells % 0 %; Platelet Count 271 10^3/cmm (157-399); Red Blood Count 3.27 10^6/uL (3.85-5.65); White Blood Count 5.91 10^3/uL (3.29-11.43)
[2024-06-05 09:10] LABS: Alanine Aminotransferase 14 U/L (0-41); Albumin Level 3.2 g/dL (3.5-5.2); Alkaline Phosphatase 116 U/L (40-130); Anion Gap 12.2 (5-19); Aspartate Amino Transferase 20 U/L (0-40); Blood Urea Nitrogen 10 mg/dL (8-23); Calcium 8.2 mg/dL (8.5-10.5); Carbon Dioxide 28 mmol/L (22-29); Chloride 101 mmol/L (98-107); Globulin 2.5 g/dL (1.3-4.6); Glucose 120 mg/dL (65-115); Osmolality Calculated 284 mOsm/kg (285-295); Potassium 4.2 mmol/L (3.5-5.1); Sodium 137 mmol/L (136-145); Total Bilirubin 0.6 mg/dL (0.15-1.2); Total Protein 5.7 g/dL (6.6-8.7)
[2024-06-17 08:31] LABS: Basophils # 0.1 10^3/uL (0.0-0.1); Basophils % 1.1 %; Eosinophils # 0.1 10^3/uL (0.0-0.8); Eosinophils % 2.1 %; Hematocrit 40.3 % (37-53); Lymphocytes # 0.7 10^3/uL (0.8-4.8); Lymphocytes % 11.2 %; Mean Corpuscular HGB Conc 32.3 g/dL (30-55); Mean Corpuscular Hemoglobin 34.7 pg (27-33); Mean Corpuscular Volume 107.5 fl (82-101); Mean Platelet Volume 9.2 fL (7.4-10.4); Monocytes # 0.6 10^3/uL (0.2-0.9); Monocytes % 9.8 %; Neutrophils # 4.72 10^3/uL (1.8-7.7); Neutrophils % 75.5 %; Nucleated Red Blood Cells % 0 %; Platelet Count 176 10^3/cmm (157-399); Red Blood Count 3.75 10^6/uL (3.85-5.65); Red Cell Distribution Width 16.7 % (12.1-15.1); White Blood Count 6.25 10^3/uL (3.29-11.43)
[2024-06-17 08:49] LABS: Alanine Aminotransferase 18 U/L (0-41); Albumin Level 3.5 g/dL (3.5-5.2); Alkaline Phosphatase 107 U/L (40-130); Anion Gap 15.9 (5-19); Aspartate Amino Transferase 23 U/L (0-40); Blood Urea Nitrogen 13 mg/dL (8-23); Calcium 8.8 mg/dL (8.5-10.5); Carbon Dioxide 27 mmol/L (22-29); Chloride 97 mmol/L (98-107); Creatinine Clr Calc Pharmacy 59.5315; Globulin 2.7 g/dL (1.3-4.6); Glucose 130 mg/dL (65-115); Osmolality Calculated 284 mOsm/kg (285-295); Potassium 3.9 mmol/L (3.5-5.1); Sodium 136 mmol/L (136-145); Total Bilirubin 0.8 mg/dL (0.15-1.2); Total Protein 6.2 g/dL (6.6-8.7)
--- NOTE | 2024-06-17 09:52 | XRR_ITS ---
PROCEDURE INFORMATION: Exam: XR Pelvis Exam date and time: 06/17/2024 9:57 AM Age: 89 years old Clinical indication: Pelvic pain; Patient HX: History of esophageal cancer; Additional info: Lower back pain TECHNIQUE: Imaging protocol: Radiologic exam of the pelvis. Views: 1 or 2 view. COMPARISON: CT abdomen pelvis con [id number] 05/22/2024 10:16 AM FINDINGS: Bones/joints: There are degenerative changes involving the lower lumbar spine. The pelvic ring appears to be intact. No fractures or destructive lesions are noted. SI joints and symphysis pubis are normal. There are mild degenerative changes involving the hip joints bilaterally. Soft tissues: No acute appearing soft tissue abnormalities are otherwise appreciated. Vasculature: Left iliac stent is noted. XR/XR pelvis 1-2V* [id number] IMPRESSION: 1. Degenerative changes.
--- NOTE | 2024-06-17 09:52 | XRR_ITS ---
PROCEDURE INFORMATION: Exam: XR Lumbosacral Spine Exam date and time: 06/17/2024 9:57 AM Age: 89 years old Clinical indication: Low back pain; Prior surgery; Surgery date: 6+ months; Surgery type: C spine, pacemaker; Patient HX: History of esophageal cancer; Additional info: Lower back pain TECHNIQUE: Imaging protocol: Radiologic exam of the lumbosacral spine. Views: 2 or 3 views. COMPARISON: CT lumbar spine wo con* [id number] 01/13/2021 11:14 AM FINDINGS: Bones/joints: There is a slight scoliotic curvature convex left. There is grade 1 anterolisthesis of L4 in relation to L5 secondary to degenerative facets. No fractures are noted. Disc spaces are relatively well preserved. There are partially bridging anterior osteophytes at all levels. There are degenerative changes involving the lower lumbar facets. SI joints are normal. Soft tissues: Unremarkable. XR/XR lumbar spine 2-3V* [id number] IMPRESSION: 1. Slight scoliotic curvature convex left. 2. Spondylosis with spondylolisthesis.
--- NOTE | 2024-06-17 09:52 | XRR_ITS ---
PROCEDURE INFORMATION: Exam: XR Cervical Spine Exam date and time: 06/17/2024 9:57 AM Age: 89 years old Clinical indication: Neck pain; Prior surgery; Surgery date: 6+ months; Surgery type: C spine plate and screws; Patient HX: History of esophageal cancer; Additional info: Lower back pain TECHNIQUE: Imaging protocol: Radiologic exam of the cervical spine. Views: 2 or 3 views. COMPARISON: [email or web address] [id number] 11/27/2023 2:42 PM FINDINGS: Bones/joints: There is slight anterolisthesis of C2 in relation to C3 and C3 in relation to C4. There are postoperative changes status post anterior fusion at C4-C5. There is disc space narrowing at C5-C6. There are degenerative changes involving the facets. Lung apices are normal. Soft tissues: Unremarkable. XR/XR cervical spine 3V* [id number] IMPRESSION: 1. Postoperative changes status post anterior fusion C4-C5. 2. Spondylosis.
== END 2024-06-23 23:59 | disposition home or self-care (01) ==
PROVIDERS: PCP Family Medicine; Visit Provider Internal Medicine Medical Oncology
DX: C15.5 Malignant neoplasm of lower third of esophagus (principal); Z53.9 Procedure and treatment not carried out, unspecified reason; M43.16 Spondylolisthesis, lumbar region; M47.812 Spondylosis without myelopathy or radiculopathy, cervical region; Z87.81 Personal history of (healed) traumatic fracture; Z92.3 Personal history of irradiation; Z79.891 Long term (current) use of opiate analgesic; Z79.899 Other long term (current) drug therapy
CPT/HCPCS: 36415; 72040; 72100; 72170; 80053; 85025; 99214

== ENCOUNTER 2024-06-24 09:01 | Emergency (ER) | payer OTHER, MEDICARE, SELFPAY ==
[2024-06-24] VITALS (55 sets, daily range): BP systolic 108–141; BP diastolic 46–85; PULSE 65–93; RESP 10–27; TEMP 36.5; O2SAT 95–100; BMI 21.6
--- NOTE | 2024-06-24 09:14 | XR_ITS ---
WS: [id number] Exam: XR chest 1V portable [id number] Date/Time of Exam: 06/24/2024 9:15 AM Reason For Exam: dyspnea/cough Comparison 05/19/2024. The lungs are clear and fully expanded. Cardiomediastinal silhouette unremarkable. Pulmonary hyperinf lation. RIGHT subclavian port ends in the mid superior vena cava region. Left-sided cardiac pacemaker noted appear to be in satisfactory location. Degenerative changes of the thoracic and lumbar spine w ith mild scoliosis. XR/XR chest 1V portable [id number] IMPRESSION: 1. Pulmonary hyperinflation. No acute process identified.
--- NOTE | 2024-06-24 09:23 | ED_ITS ---
HPI - Nausea/Vomiting/Diarrhea 2 General: Chief complaint: Nausea/Vomiting/Diarrhea Stated complaint: NV (3xdays) Time Seen by Provider: 06/24/24 09:13 History of Present Illness: 89-year-old male known history of his re currence of esophageal cancer has been trying to undergo treatment good due to generalized weakness has not been able to receive treatments. He has been followed by Dr. Westfall. Is complaining of generalized weakness not able to keep any food or fluids down. During recent hospitalization he had signs of gastroparesis with fluid-filled stomach on the repeat CT during that hospitalization. He had a PowerPort in he previously had a PEG tube. He had it removed because he did not like it and was able to begin eating normally again. He denies any fever sweats chills no hematemesis. CT done at the time of last admission last month showed to some regression of the recurrence of esophageal cancer on the CT. Associated nausea: Yes Associated symtoms: Reports nausea; Denies chest pain or dysuria Related Data Home Medications Medication Instructions Recorded Confirmed finasteride 5 mg tablet 5 mg PO QAM 01/12/20 06/24/24 simvastatin 80 mg tablet 40 mg PO BEDTIME 01/07/21 06/24/24 furosemide 20 mg tablet 20 mg PO QAM 01/20/21 06/24/24 lisinopril 5 mg tablet 2.5 mg PO QAM 05/08/22 06/24/24 nitroglycerin 0.4 mg sublingual 0.4 mg sublingual Q5M PRN Chest 05/08/22 06/24/24 tablet (Nitrostat) Pain pantoprazole 40 mg tablet,delayed 40 mg PO BID 05/08/22 06/24/24 release (Protonix) tamsulosin 0.4 mg capsule (Flomax) 0.4 mg PO QPM 05/08/22 06/24/24 verapamil 120 mg tablet 120 mg PO QAM 05/08/22 06/24/24 pyridoxine (vitamin B6) 50 mg 25 mg PO BID 04/12/23 06/24/24 tablet zinc acetate 50 mg (zinc) capsule 50 mg PO DAILY 04/24/24 06/24/24 morphine 10 mg/5 mL oral solution 5 - 10 mg PO Q6H PRN pain 05/20/24 06/24/24 sucralfate 100 mg/mL oral 10 ml PO Q6H 05/20/24 06/24/24 suspension Previous Rx's Medication Instructions Recorded cilostazol 50 mg tablet 50 mg PO BID #180 tabs 05/16/22 tiotropium bromide 1.25 2 puff inhalation DAILY #4 grams 04/12/23 mcg/actuation mist for inhalation (Spiriva Respimat) loperamide 2 mg capsule 2 mg PO TID PRN Diarrhea #10 caps 05/26/24 lubiprostone 24 mcg capsule 24 mcg PO BID #60 caps 06/17/24 (Amitiza) cefdinir 250 mg/5 mL oral 300 mg (6 mL) PO BID 7 days #84 mL 06/24/24 suspension ondansetron 4 mg disintegrating 4 mg PO Q6H PRN nausea and 06/24/24 tablet vomiting #20 tabs Allergies Allergy/AdvReac Type Severity Reaction Status Date / Time No Known Allergies Allergy Verified 06/17/24 09:24 Review of Systems 2 Const: Denies: fever(s) or chills Card: Denies: chest pain Resp: Denies: dyspnea GI: Reports: abdominal pain, nausea and vomiting : Denies: dysuria, urinary frequency or urinary urgency Musc: Denies: neck pain or back pain Skin/Breast: Denies: rash PFSH ED 2 PFSH: Medical History Dehydration Chemotherapy induced diarrhea Immunocompromised state Physical deconditioning Protein calorie malnutrition Muscle wasting Cancer cachexia Hyponatremia Hypokalemia Acute kidney injury Severe sepsis Dysphagia Anemia Leukocytosis Elevated d-dimer PE ruled out Hyperkalemia Left upper extremity swelling No DVT Heart failure Currently compensated Elevated troponin Acute and chronic respiratory failure with hypoxia Pneumonia Chest pain Hyperlipidemia Atrial flutter GERD (gastroesophageal reflux disease) Diabetes mellitus Coronary artery disease Peripheral arterial disease Diverticulosis CAD (coronary artery disease) Esophageal cancer Hypertension BPH (benign prostatic hyperplasia) Surgical History History of permanent cardiac pacemaker placement PEG (percutaneous endoscopic gastrostomy) status Status post coronary artery stent placement x 1 2006 History of incisional hernia repair x 2 H/O exploratory laparotomy I swallowed a safety pin when I was a kid and they had to open me up to get it out Status post placement of cardiac pacemaker History of foot surgery R ankle fracture S/P appendectomy H/O bilateral inguinal hernia repair Port-A-Cath in place Right subclavian Family History Other CAD (coronary artery disease) Cancer Diabetes Hyperlipidemia Denies family history of Clotting disorder Dementia Psychiatric illness Chronic kidney disease (CKD) Suicide Anesthesia complication Bleeding disorder Lung disease Hypertension Stroke Social History Smoking and tobacco/nicotine status: former use of tobacco/nicotine Quit status (tobacco/nicotine): has quit using Year quit tobacco: 1978 Former quit date comment: 2 ppd X 35 years Alcohol intake: former Former alcohol use details: Quit in September. Formerly heavy drinker Substance/Drug Use: never Lives independently: Yes Household members: spouse Marital status: Physical Exam 2 Const: GENERAL APPEARANCE: cooperative ORIENTATION/CONSCIOUSNESS: Yes awake, Yes oriented to person, Yes oriented to place and Yes oriented to time HENMT: COMMON NORMALS: normocephalic, atraumatic and hearing grossly normal bilaterally HEAD & SCALP: normocephalic and atraumatic Resp: COMMON NORMALS: normal respiratory effort, No retractions, No use of accessory muscles and clear to auscultation bilaterally AUSCULTATION: clear to auscultation bilaterally Cardio: COMMON NORMALS: regular rate, regular rhythm and No murmurs present (Cardio) RATE: regular rate RHYTHM: regular rhythm GI: COMMON NORMALS: Soft to palpation and No hepatosplenomegaly present A USCULTATION: Yes normoactive bowel sounds PALPATION: Yes Soft to palpation, No Tenderness to palpation present (GI), No Guarding due to palpation present (GI) and Yes No hepatosplenomegaly present Extremity: COMMON NORMALS: normal to inspection, capillary refill normal, no clubbing, cyanosis or edema, no calf tenderness and no pedal edema Neuro: SENSORIUM/ORIENTATION: Yes oriented to person, Yes oriented to place and Yes oriented to time Skin: COMMON NORMALS: no rashes or lesions noted GENERAL SKIN EXAM: no rashes or lesions noted Course 2 Vital Signs: Vital signs: Vital Signs Temperature 97.7 F 06/24/24 09:22 Pulse Rate 67 06/24/24 15:34 Respiratory Rate 21 H 06/24/24 14:35 Blood Pressure 141/85 06/24/24 15:34 Pulse Oximetry 100 06/24/24 15:34 Oxygen Delivery Me thod Room Air 06/24/24 12:50 MDM - Nausea/Vomiting/Diarrhea Medical Decision Making Reviewed the CT findings with Dr. Easley who read the CT. She does not feel he has an SI obstruction at the esophageal tumor but is having some reflux and accumulation of fluid proximally. Think that is why he is throwing up quite a bit. Patient does not really want to pursue getting a PEG tube. He had 1 previously does not want to get 1 again he has not been pursuing treatment for his recurrence of esophageal tumor because he has not been strong enough. Discussed with him and the family that until he is able to eat and drink regularly he is not likely to get strong enough. They would like to try different medication for nausea first. Discussed with him that the since this is a mechanical obstruction I am not convinced that a antiemetic will be that terribly helpful. Incidental finding while he was here that he had a pretty significant urinary retention noted on the CT catheter was placed he had well over 1400 out. He did feel little better from that. Additionally there is signs of a cystitis he was given liquid cefdinir to use 300 mg twice a day. Long discussion with the patient and his son at the bedside to return if he has further problems. Lab Data 06/24/24 09:46 06/24/24 09:46 Radiology Impressions Chest X-Ray 06/24/24 09:14 IMPRESSION: 1. Pulmonary hyperinflation. No acute process identified. Abdomen/Pelvis CT 06/24/24 11:06 IMPRESSION: 1. Markedly distended urinary bladder may be secondary to bladder outlet obstruction from an enlarged prostate. 2. New minimal L5 compression fracture without retropulsion. New since 05/22/2024. 3. Hepatic cysts. 4. Fluid in the distal esophagus. Patient is at risk for aspiration. 5. No renal obstruction. Large area of cortical scarring and thinning RIGHT kidney. 6. Advanced atherosclerosis aorta. Laboratory Results WBC 7.67 10^3/uL (3.29-11.43) 06/24/24 09:46 RBC 4.24 10^6/uL (3.85-5.65) 06/24/24 09:46 Hgb 14.70 g/dL (11.27-16.99) 06/24/24 09:46 Hct 45.0 % (37-53) 06/24/24 09:46 MCV 106.1 fl (82-101) H 06/24/24 09:46 MCH 34.7 pg (27-33) H 06/24/24 09:46 MCHC 32.7 g/dL (30-55) 06/24/24 09:46 RDW 15.9 % (12.1-15.1) H 06/24/24 09:46 Plt Count 233 10^3/cmm (157-399) 06/24/24 09:46 MPV 9.5 fL (7.4-10.4) 06/24/24 09:46 Neut % (Auto) 84.8 % 06/24/24 09:46 Lymph % (Auto) 5.9 % 06/24/24 09:46 [place]ascock % (Auto) 7.7 % 06/24/24 09:46 Eos % (Auto) 0.7 % 06/24/24 09:46 Baso % (Auto) 0.5 % 06/24/24 09:46 Neut # (Auto) 6.51 10^3/uL (1.8-7.7) 06/24/24 09:46 Lymph # (Auto) 0.5 10^3/uL (0.8-4.8) L 06/24/24 09:46 [place]ock # (Auto) 0.6 10^3/uL (0.2-0.9) 06/24/24 09:46 Eos # (Auto) 0.1 10^3/uL (0.0-0.8) 06/24/24 09:46 Baso # (Auto) 0.0 10^3/uL (0.0-0.1) 06/24/24 09:46 Nucleated RBC % (auto) 0 % 06/24/24 09:46 Nucleated RBCs # 0.0 /100WBC 06/24/24 09:46 Sodium 144 mmol/L (136-145) 06/24/24 09:46 Potassium 3.9 mmol/L (3.5-5.1) 06/24/24 09:46 Chloride 103 mmol/L (98-107) 06/24/24 09:46 Carbon Dioxide 26 mmol/L (22-29) 06/24/24 09:46 Anion Gap 18.9 (5-19) 06/24/24 09:46 BUN 12 mg/dL (8-23) 06/24/24 09:46 Creatinine 0.7 mg/dL (0.7-1.2) 06/24/24 09:46 GFR Calculation Not Reportable 06/24/24 09:46 Glucose 123 mg/dL (65-115) H 06/24/24 09:46 Calculated Osmolality 299 mOsm/kg (285-295) H 06/24/24 09:46 Calcium 9.3 mg/dL (8.5-10.5) 06/24/24 09:46 Total Bilirubin 1.2 mg/dL (0.15-1.2) 06/24/24 09:46 AST 21 U/L (0-40) 06/24/24 09:46 ALT 16 U/L (0-41) 06/24/24 09:46 Alkaline Phosphatase 142 U/L (40-130) H 06/24/24 09:46 Total Protein 6.8 g/dL (6.6-8.7) 06/24/24 09:46 Albumin 4.0 g/dL (3.5-5.2) 06/24/24 09:46 Globulin 2.8 g/dL (1.3-4.6) 06/24/24 09:46 Lipase 10 U/L (13-60) L 06/24/24 09:46 Urine Color Yellow (Yellow) 06/24/24 12:24 Urine Appearance Slightly cloudy (CLEAR) 06/24/24 12:24 Urine pH Not Reportable 06/24/24 12:24 Ur Specific Fabens Not Reportable 06/24/24 12:24 Urine Protein Not Reportable 06/24/24 12:24 Urine Glucose (UA) Not Reportable 06/24/24 12:24 Urine Ketones Not Reportable 06/24/24 12:24 Urine Blood Not Reportable 06/24/24 12:24 Urine Nitrate Not Reportable 06/24/24 12:24 Urine Bilirubin Not Reportable 06/24/24 12:24 Urine Urobilinogen Not Reportable 06/24/24 12:24 Ur Leukocyte Esterase Not Reportable 06/24/24 12:24 Urine RBC Rare /hpf (0-2) 10/01/24 12:24 Urine WBC 5-10 /hpf (0-5) H 06/24/24 12:24 Ur Squamous Epith Cells 0-4 /hpf (0-5) H 06/24/24 12:24 Ur Transition Epith Cell 0-4 /hpf 06/24/24 12:24 Amorphous Sediment Trace /hpf 06/24/24 12:24 Urine Bacteria 1+ /hpf (NONE) H 06/24/24 12:24 Urine Mucus Trace /hpf 06/24/24 12:24 All radiology interpretation(s) finalized by discharge Discharge Plan Discharge Patient Disposition: Home Clinical Impression: Nausea & vomiting, Malignant neoplasm of lower third of esophagus, Acute urinary retention, Cystitis Condition: Stable Prescriptions: New ondansetron 4 mg tablet,disintegrating 4 mg PO Q6H PRN (Reason: nausea and vomiting) Qty: 20 0RF cefdinir 250 mg/5 mL suspension for reconstitution 300 mg PO BID 7 Days Qty: 84 0RF No Action furosemide 20 mg tablet 20 mg PO QAM pyridoxine (vitamin B6) 50 mg tablet 25 mg PO BID Spiriva Respimat 1.25 mcg/actuation mist 2 puff inhalation DAILY Qty: 4 6RF lubiprostone [Amitiza] 24 mcg capsule 24 mcg PO BID Qty: 60 3RF cilostazol 50 mg tablet 50 mg PO BID Qty: 180 3RF zinc acetate 50 mg (zinc) capsule 50 mg PO DAILY simvastatin 80 mg Tablet 40 mg PO BEDTIME finasteride 5 mg Tablet 5 mg PO QAM tamsulosin [Flomax] 0.4 mg Capsule 0.4 mg PO QPM nitroglycerin [Nitrostat] 0.4 mg Tablet, Sublingual 0.4 mg SUBLINGUAL Q5M PRN (Reason: Chest Pain) Rx Instructions: do not exceed 3 doses per episode lisinopril 5 mg Tablet 2.5 mg PO QAM verapamil 120 mg tablet 120 mg PO QAM pantoprazole [Protonix] 40 mg Tablet,Delayed Release (Dr/Ec) 40 mg PO BID sucralfate 100 mg/mL Suspension 10 ml PO Q6H Rx Instructions: swish in mouth and swallow; use after food/drink morphine 10 mg/5 mL solution 5 - 10 mg PO Q6H PRN (Reason: pain) loperamide 2 mg Capsule 2 mg PO TID PRN (Reason: Diarrhea) Qty: 10 0RF Discharge Orders: Discharge ED (Routine); Ordered 06/24/24 Ordered By: Scott Cisneros Referrals: Angelica Cedeño MD [Primary Care Provider] - Discharge Diet: Advance as tolerated Discharge Activity: Increase activity as tolerated Patient Instructions: Opioid Safety, Pain Management Activity Restrictions/Additional Instructions: Thank you for choosing [facility] for your healthcare needs today. It is very important that you follow up as instructed or that you return to the Emergency Department should you have concerns or if your condition changes or worsens in any way. You are seen in the emergency room for difficulty swallowing and persistent vomiting. Based on the laboratory testing and imaging done and suspect that this is related to your esophageal cancer and food and fluids are passing very slowly past the cancer. If this persists you may need to have a PEG tube placed in the future. We discussed that option today and you opted instead to continue to try outpatient and use antiemetics. An incidental finding at the time of the imaging done was significant urinary retention. Argueta catheter was placed you should resume taking your tamsulosin recommend starting with 2 tablets at night for 1 week then resume 1 tablet at night. Case management make arrangements for you to follow-up with urology. In addition to this does appear you have a mild bladder infection for which she will be given oral antibiotics in the liquid form. Coding Level of Care Code ED Telemarketing Manager for Oleg Loya
--- NOTE | 2024-06-24 09:33 | ECG_ITS ---
[facility] Test Date: 2024-06-24 Pat Name: Bernard Aolnzo Department: Room: Gender: Male Dietary Services Director: : [id number] Requested By: Scott Beverly Order Number: [id number] Johnna MD: Harish Rasheed M.D. Measurements Intervals [place] Rate: 80 P: 57 IN: 222 QRS: 11 QRSD: 129 T: -9 QT: 411 QTc: 475 Interpretive Statements SINUS RHYTHM WITH FIRST DEGREE AV BLOCK WITH OCCASIONAL VENTRICULAR PREMATURE COMPLEXES POSSIBLE LEFT ATRIAL ENLARGEMENT [-0.1mV P-WAVE IN V1/V2] MODERATE INTRAVENTRICULAR CONDUCTION DELAY [105+ ms QRS DURATION, 80+ ms Q/S IN V1/V2, NO Q AND 60+ ms R IN I/aVL/V5/V6] NONSPECIFIC T-WAVE ABNORMALITY Compared to ECG 05/19/2024 18:01:19 First degree AV block now present T-wave abnormality still present Electronically Signed On 06-24-2024 16:25:37 CDT by Harish Rasheed M.D. [id number]
[2024-06-24 09:53] LABS: Basophils % 0.5 %; Eosinophils # 0.1 10^3/uL (0.0-0.8); Eosinophils % 0.7 %; Lymphocytes # 0.5 10^3/uL (0.8-4.8); Lymphocytes % 5.9 %; Mean Corpuscular HGB Conc 32.7 g/dL (30-55); Mean Corpuscular Hemoglobin 34.7 pg (27-33); Mean Corpuscular Volume 106.1 fl (82-101); Mean Platelet Volume 9.5 fL (7.4-10.4); Monocytes # 0.6 10^3/uL (0.2-0.9); Monocytes % 7.7 %; Neutrophils # 6.51 10^3/uL (1.8-7.7); Neutrophils % 84.8 %; Nucleated Red Blood Cells % 0 %; Platelet Count 233 10^3/cmm (157-399); Red Blood Count 4.24 10^6/uL (3.85-5.65); Red Cell Distribution Width 15.9 % (12.1-15.1); White Blood Count 7.67 10^3/uL (3.29-11.43)
[2024-06-24 10:13] LABS: Alanine Aminotransferase 16 U/L (0-41); Alkaline Phosphatase 142 U/L (40-130); Anion Gap 18.9 (5-19); Aspartate Amino Transferase 21 U/L (0-40); Blood Urea Nitrogen 12 mg/dL (8-23); Calcium 9.3 mg/dL (8.5-10.5); Carbon Dioxide 26 mmol/L (22-29); Chloride 103 mmol/L (98-107); Creatinine Clr Calc Pharmacy 59.5315; Globulin 2.8 g/dL (1.3-4.6); Glucose 123 mg/dL (65-115); Lipase 10 U/L (13-60); Osmolality Calculated 299 mOsm/kg (285-295); Potassium 3.9 mmol/L (3.5-5.1); Sodium 144 mmol/L (136-145); Total Bilirubin 1.2 mg/dL (0.15-1.2); Total Protein 6.8 g/dL (6.6-8.7)
[2024-06-24] MEDS: sodium chloride 0.9% 1,000 ML 999 ML IV (10:23)
[2024-06-24] MEDS: ondansetron 2 mg/ML SDV 2 mL 4 MG IVP (10:25)
--- NOTE | 2024-06-24 11:06 | CT_ITS ---
WS: [id number] CT ABDOMEN AND PELVIS WITH CONTRAST HISTORY: abd pain TECHNIQUE: Imaging performed of the abdomen and pelvis with IV contrast. Single phase imaging of the abdomen. Coronal and sagittal reformats are submitted. All CT scans at [facility] use at [facility] one of these dose optimization techniques: automated exposure control; mA and/or kV adjustment per patient size (includes targeted exams where dose is matched to clinical indication); or iterative re construction. IV CONTRAST: Omnipaque 350; 100 mL IV. Oral contrast: No DLP: 381.35 mGy.cm COMPARISON: 05/22/2024 Lower thorax: Chronic emphysematous changes at the lung bases. Bronchiectasis RIGHT lower lobe. Heart is normal size. Moderate amount of fluid in the distal esophagus. Liver/biliary system: Normal size liver with scattered cystic areas some of these are too small to ch aracterize. Normal portal vein. Gallbladder: Normal. No gallstones or wall thickening. No pericholecystic fluid. Pancreas: Diffuse fatty replacement. Spleen: Normal size spleen. No mass or infarct. Adrenal glands: Normal. Right kidney: Small caliber kidney with a large area of severe cortical thinning and scarring. No obs truction. There are several calcifications in the central pelvis. Some of these may be vascular calci fications. No ureteral obstruction. Left kidney: Normal size kidney. 10 mm cortical cyst superior pole. Nonobstructing central calcificat ions. Aorta: Advanced atherosclerotic plaque within the aorta. Mild stenosis of the proximal celiac axis an d SMA. Continuing plaque throughout the mid to distal SMA. Lymphadenopathy: None. Free fluid: None. GI tract: Stomach is not distended. No small bowel obstruction. Mild constipation. Prior cholecystect alejandrina. Moderate diverticular burden in the distal colon without acute diverticulitis. Abdominal wall: Unremarkable abdominal wall. No hernia. Pelvis: No free fluid or adenopathy within the pelvis. Markedly distended urinary bladder extending o leana a length of 14.7 cm. Prostate gland is enlarged and heterogeneous encroaching into the bladder. P rostate measures 3.7 x 3.3 x 5.7 cm. Bones: New mild anterior wedging of L5 with loss of height. Fracture is noted through the anterior LE FT lateral vertebral body. Fracture new since 05/22/2024. CT/CT abdomen pelvis w con* [id number] IMPRESSION: 1. Markedly distended urinary bladder may be secondary to bladder outlet obstr uction from an enlarged prostate. 2. New minimal L5 compression fracture without retropulsion. New since 05/22/20 24. 3. Hepatic cysts. 4. Fluid in the distal esophagus. Patient is at risk for aspiration. 5. No renal obstruction. Large area of cortical scarring and thinning RIGHT ki dney. 6. Advanced atherosclerosis aorta.
[2024-06-24] MEDS: iohexol 350 mg/mL 500 mL Btl (per mL) IV (11:33)
[2024-06-24 12:39] LABS: Urine Color Yellow (Yellow)
[2024-06-24 12:40] LABS: Urine Appearance Slightly Cloudy (CLEAR)
[2024-06-24 12:41] LABS: Add Urine Microscopic? YES; UA Manual Slide Review YES; UA Slide Review UA Slide Review Perf
[2024-06-24 12:43] LABS: Add Urine Culture? No; Amorphous Sediment Urine TRACE /hpf; Bacteria Urine 1+ /hpf; Mucus Urine TRACE /hpf; RBC Urine RARE /hpf (0-2); Squamous Epithelial Cell Urine 0-4 /hpf (0-5); Transitional Epi Cells Urine 0-4 /hpf
[2024-06-26 03:53] LABS: Bacillus cereus group Not Detected (NOT DETECT); Bacillus subtillis group Not Detected (NOT DETECT); Corynebacterium Not Detected (NOT DETECT); Cutibacterium acnes (P.acnes) Not Detected (NOT DETECT); Enterococcus Not Detected (NOT DETECT); Enterococcus faecalis Not Detected (NOT DETECT); Enterococcus faecium Not Detected (NOT DETECT); Lactobacillus species Not Detected (NOT DETECT); Listeria Not Detected (NOT DETECT); Listeria monocytogenes Not Detected (NOT DETECT); Micrococcus Detected (NOT DETECT); Pan Candida Not Detected (NOT DETECT); Pan Gram-Negative Not Detected (NOT DETECT); Staphylococcus epidermidis Not Detected (NOT DETECT); Staphylococcus lugdunensis Not Detected (NOT DETECT); Staphylococcus species Not Detected (NOT DETECT); Streptococcus agalactiae Not Detected (NOT DETECT); Streptococcus anginosus group Not Detected (NOT DETECT); Streptococcus pneumoniae Not Detected (NOT DETECT); Streptococcus pyogenes Not Detected (NOT DETECT); Streptococcus species Not Detected (NOT DETECT)
== END 2024-06-24 14:55 | disposition home or self-care (01) ==
PROVIDERS: Emergency Provider Family Medicine; PCP Family Medicine
DX: R11.2 Nausea with vomiting, unspecified (principal); N30.90 Cystitis, unspecified without hematuria; R33.9 Retention of urine, unspecified; C15.5 Malignant neoplasm of lower third of esophagus
CPT/HCPCS: 36415; 51702; 71045; 74177; 80053; 81001; 83690; 85025; 87040; 87150; 87205; 93005; 96374; 99285; J2405; J7030

== ENCOUNTER 2024-06-26 09:33 | Emergency (ER) | payer OTHER, SELFPAY ==
[2024-06-26 09:41] VITALS: BP 108/57; PULSE 70; RESP 18; TEMP 37; O2SAT 100; BMI 21.1
[2024-06-26 10:09] LABS: Basophils % 0.4 %; Eosinophils # 0.2 10^3/uL (0.0-0.8); Eosinophils % 2.7 %; Hematocrit 41.6 % (37-53); Lymphocytes # 0.6 10^3/uL (0.8-4.8); Lymphocytes % 8.1 %; Mean Corpuscular HGB Conc 32.5 g/dL (30-55); Mean Corpuscular Hemoglobin 34.4 pg (27-33); Mean Corpuscular Volume 105.9 fl (82-101); Mean Platelet Volume 9.7 fL (7.4-10.4); Monocytes # 0.6 10^3/uL (0.2-0.9); Monocytes % 7.3 %; Neutrophils # 6.08 10^3/uL (1.8-7.7); Neutrophils % 81.2 %; Nucleated Red Blood Cells % 0 %; Platelet Count 231 10^3/cmm (157-399); Red Blood Count 3.93 10^6/uL (3.85-5.65); Red Cell Distribution Width 15.7 % (12.1-15.1); White Blood Count 7.49 10^3/uL (3.29-11.43)
[2024-06-26 10:27] LABS: Alanine Aminotransferase 19 U/L (0-41); Albumin Level 3.6 g/dL (3.5-5.2); Alkaline Phosphatase 135 U/L (40-130); Anion Gap 12.4 (5-19); Aspartate Amino Transferase 24 U/L (0-40); Blood Urea Nitrogen 15 mg/dL (8-23); Calcium 8.4 mg/dL (8.5-10.5); Carbon Dioxide 29 mmol/L (22-29); Chloride 102 mmol/L (98-107); Creatinine Clr Calc Pharmacy 59.0306; Globulin 2.6 g/dL (1.3-4.6); Glucose 117 mg/dL (65-115); Lactic Sepsis W/Reflex 1.6 mmol/L (0.5-2.2); Osmolality Calculated 292 mOsm/kg (285-295); Potassium 3.4 mmol/L (3.5-5.1); Sodium 140 mmol/L (136-145); Total Bilirubin 0.7 mg/dL (0.15-1.2); Total Protein 6.2 g/dL (6.6-8.7)
[2024-06-26 10:31] VITALS: PULSE 72; RESP 16; O2SAT 100
--- NOTE | 2024-06-26 10:40 | ED_ITS ---
HPI - Recheck/Abnormal Lab/Rx 2 General: Chief Complaint: Recheck/Abnormal Lab/Rx Stated Complaint: Blayne called them/bad cultures Time Seen by Provider: 06/26/24 09:39 History of Present Illness: 89-year-old male presents to the emergen cy room after being contacted to return regarding a positive finding on a blood culture. He was here earlier this week micro and a UA showed 5-10 white blood cells per high-power field but they did not report the dip does not look like a culture was done on that visit on June 24 either. Patient was started on cefdinir. His blood cultures show 1 of 4 bottles with gram-positive rods. He has not had a fever he still has some mild abdominal discomfort in the suprapubic region he does still have a [place] in because of urinary retention he had significant urinary retention when he was seen last time. Surprisingly he has been able to eat and swallow better despite the concern that he was developing obstruction of the distal esophagus with his which recurrent esophageal cancer. He denies having any fever. Related Data Home Medications Medication Instructions Recorded Confirmed finasteride 5 mg tablet 5 mg PO QAM 01/12/20 06/26/24 simvastatin 80 mg tablet 40 mg PO BEDTIME 01/07/21 06/26/24 furosemide 20 mg tablet 20 mg PO QAM 01/20/21 06/26/24 lisinopril 5 mg tablet 2.5 mg PO QAM 05/08/22 06/26/24 nitroglycerin 0.4 mg sublingual 0.4 mg sublingual Q5M PRN Chest 05/08/22 06/26/24 tablet (Nitrostat) Pain pantoprazole 40 mg tablet,delayed 40 mg PO BID 05/08/22 06/26/24 release (Protonix) tamsulosin 0.4 mg capsule (Flomax) 0.4 mg PO QPM 05/08/22 06/26/24 verapamil 120 mg tablet 120 mg PO QAM 05/08/22 06/26/24 pyridoxine (vitamin B6) 50 mg 25 mg PO BID 04/12/23 06/26/24 tablet zinc acetate 50 mg (zinc) capsule 50 mg PO DAILY 04/24/24 06/26/24 morphine 10 mg/5 mL oral solution 5 - 10 mg PO Q6H PRN pain 05/20/24 06/26/24 sucralfate 100 mg/mL oral 10 ml PO Q6H 05/20/24 06/26/24 suspension Previous Rx's Medication Instructions Recorded cilostazol 50 mg tablet 50 mg PO BID #180 tabs 05/16/22 tiotropium bromide 1.25 2 puff inhalation DAILY #4 grams 04/12/23 mcg/actuation mist for inhalation (Spiriva Respimat) loperamide 2 mg capsule 2 mg PO TID PRN Diarrhea #10 caps 05/26/24 lubiprostone 24 mcg capsule 24 mcg PO BID #60 caps 06/17/24 (Amitiza) cefdinir 250 mg/5 mL oral 300 mg (6 mL) PO BID 7 days #84 mL 06/24/24 suspension ondansetron 4 mg disintegrating 4 mg PO Q6H PRN nausea and 06/24/24 tablet vomiting #20 tabs Allergies Allergy/AdvReac Type Severity Reaction Status Date / Time No Known Allergies Allergy Verified 06/17/24 09:24 Review of Systems 2 Const: Denies: fever(s) or chills Card: Denies: chest pain Resp: Denies: dyspnea GI: Denies: abdominal pain : Denies: dysuria, urinary frequency or urinary urgency Musc: Denies: neck pain or back pain Skin/Breast: Denies: rash PFSH ED 2 PFSH: Medical History Dehydration Chemotherapy induced diarrhea Immunocompromised state Physical deconditioning Protein calorie malnutrition Muscle wasting Cancer cachexia Hyponatremia Hypokalemia Acute kidney injury Severe sepsis Dysphagia Anemia Leukocytosis Elevated d-dimer PE ruled out Hyperkalemia Left upper extremity swelling No DVT Heart failure Currently compensated Elevated troponin Acute and chronic respiratory failure with hypoxia Pneumonia Chest pain Hyperlipidemia Atrial flutter GERD (gastroesophageal reflux disease) Diabetes mellitus Coronary artery disease Peripheral arterial disease Diverticulosis CAD (coronary artery disease) Esophageal cancer Hypertension BPH (benign prostatic hyperplasia) Surgical History History of permanent cardiac pacemaker placement PEG (percutaneous endoscopic gastrostomy) status Status post coronary artery stent placement x 1 2006 History of incisional hernia repair x 2 H/O exploratory laparotomy I swallowed a safety pin when I was a kid and they had to open me up to get it out Status post placement of cardiac pacemaker History of foot surgery R ankle fracture S/P appendectomy H/O bilateral inguinal hernia repair Port-A-Cath in place Right subclavian Family History Other CAD (coronary artery disease) Cancer Diabetes Hyperlipidemia Denies family history of Clotting disorder Dementia Psychiatric illness Chronic kidney disease (CKD) Suicide Anesthesia complication Bleeding disorder Lung disease Hypertension Stroke Social History Smoking and tobacco/nicotine status: former use of tobacco/nicotine Quit status (tobacco/nicotine): has quit using Year quit tobacco: 1978 Former quit date comment: 2 ppd X 35 years Alcohol intake: former Former alcohol use details: Quit in September. Formerly heavy drinker Substance/Drug Use: never Lives independently: Yes Household members: spouse Marital status: Physical Exam 2 Const: COMMON NORMALS: no acute distress GENERAL APPEARANCE: cooperative and comfortable ORIENTATION/CONSCIOUSNESS: Yes awake, Yes oriented to person, Yes oriented to place and Yes oriented to time HENMT: COMMON NORMALS: normocephalic, atraumatic and hearing grossly normal bilaterally HEAD & SCALP: normocephalic and atraumatic Resp: COMMON NORMALS: normal respiratory effort, No retractions, No use of accessory muscles and clear to auscultation bilaterally AUSCULTATION: clear to auscultation bilaterally Cardio: COMMON NORMALS: regular rate, regular rhythm and No murmurs present (Cardio) RATE: regular rate RHYTHM: regular rhythm GI: COMMON NORMALS: Soft to palpation and No hepatosplenomegaly present A USCULTATION: Yes normoactive bowel sounds PALPATION: Yes Soft to palpation, No Tenderness to palpation present (GI), No Guarding due to palpation present (GI) and Yes No hepatosplenomegaly present Extremity: COMMON NORMALS: normal to inspection, capillary refill normal, no clubbing, cyanosis or edema, no calf tenderness and no pedal edema Neuro: SENSORIUM/ORIENTATION: Yes oriented to person, Yes oriented to place and Yes oriented to time Skin: COMMON NORMALS: no rashes or lesions noted GENERAL SKIN EXAM: no rashes or lesions noted Course 2 Vital Signs: Vital signs: Vital Signs Temperature 98.6 F 06/26/24 09:41 Pulse Rate 62 06/26/24 14:37 Respiratory Rate 16 06/26/24 10:31 Blood Pressure 111/47 06/26/24 14:37 Pulse Oximetry 99 06/26/24 14:37 Oxygen Delivery Me thod Room Air 06/26/24 13:41 MDM - Recheck/Abnormal Lab/Rx Medical Decision Making Patient is actually feeling better than the last time we seen him. No fever no leukocytosis repeat is cultures we will discharge him home continue on the cefdinir for now if he develops fever return to the emergency room. He states surprisingly he is actually doing quite a bit better even swallowing and able to eat the nausea medicine seems to have helped hopefully this indicates he has not been nearing the point of an obstruction from his esophageal recurrence. Follow-up with his primary care. Medical Records I reviewed the patient's medical records. Lab Data I reviewed the patient's lab results. 06/26/24 09:58 06/26/24 09:58 Laboratory Results WBC 7.49 10^3/uL (3.29-11.43) 06/26/24 09:58 RBC 3.93 10^6/uL (3.85-5.65) 06/26/24 09:58 Hgb 13.50 g/dL (11.27-16.99) 06/26/24 09:58 Hct 41.6 % (37-53) 06/26/24 09:58 MCV 105.9 fl (82-101) H 06/26/24 09:58 MCH 34.4 pg (27-33) H 06/26/24 09:58 MCHC 32.5 g/dL (30-55) 06/26/24 09:58 RDW 15.7 % (12.1-15.1) H 06/26/24 09:58 Plt Count 231 10^3/cmm (157-399) 06/26/24 09:58 MPV 9.7 fL (7.4-10.4) 06/26/24 09:58 Neut % (Auto) 81.2 % 06/26/24 09:58 Lymph % (Auto) 8.1 % 06/26/24 09:58 [place] % (Auto) 7.3 % 06/26/24 09:58 Eos % (Auto) 2.7 % 06/26/24 09:58 Baso % (Auto) 0.4 % 06/26/24 09:58 Neut # (Auto) 6.08 10^3/uL (1.8-7.7) 06/26/24 09:58 Lymph # (Auto) 0.6 10^3/uL (0.8-4.8) L 06/26/24 09:58 [place] # (Auto) 0.6 10^3/uL (0.2-0.9) 06/26/24 09:58 Eos # (Auto) 0.2 10^3/uL (0.0-0.8) 06/26/24 09:58 Baso # (Auto) 0.0 10^3/uL (0.0-0.1) 06/26/24 09:58 Nucleated RBC % (auto) 0 % 06/26/24 09:58 Nucleated RBCs # 0.0 /100WBC 06/26/24 09:58 Sodium 140 mmol/L (136-145) 06/26/24 09:58 Potassium 3.4 mmol/L (3.5-5.1) L 06/26/24 09:58 Chloride 102 mmol/L (98-107) 06/26/24 09:58 Carbon Dioxide 29 mmol/L (22-29) 06/26/24 09:58 Anion Gap 12.4 (5-19) 06/26/24 09:58 BUN 15 mg/dL (8-23) 06/26/24 09:58 Creatinine 0.7 mg/dL (0.7-1.2) 06/26/24 09:58 GFR Calculation Not Reportable 06/26/24 09:58 Glucose 117 mg/dL (65-115) H 06/26/24 09:58 Calculated Osmolality 292 mOsm/kg (285-295) 06/26/24 09:58 Lactic Acid 1.6 mmol/L (0.5-2.2) 06/26/24 09:58 Calcium 8.4 mg/dL (8.5-10.5) L 06/26/24 09:58 Total Bilirubin 0.7 mg/dL (0.15-1.2) 06/26/24 09:58 AST 24 U/L (0-40) 06/26/24 09:58 ALT 19 U/L (0-41) 06/26/24 09:58 Alkaline Phosphatase 135 U/L (40-130) H 06/26/24 09:58 Total Protein 6.2 g/dL (6.6-8.7) L 06/26/24 09:58 Albumin 3.6 g/dL (3.5-5.2) 06/26/24 09:58 Globulin 2.6 g/dL (1.3-4.6) 06/26/24 09:58 Urine Color Yellow (Yellow) 06/26/24 11:54 Urine Appearance Turbid (CLEAR) A 06/26/24 11:54 Urine pH 7.5 (5-7) 06/26/24 11:54 Ur Specific [place] 1.010 (1.005-1.030) 06/26/24 11:54 Urine Protein Negative (Negative) 06/26/24 11:54 Urine Glucose (UA) Negative (Normal) 06/26/24 11:54 Urine Ketones Negative (Negative) 06/26/24 11:54 Urine Blood 2+ (Negative) A 06/26/24 11:54 Urine Nitrate Negative (Negative) 06/26/24 11:54 Urine Bilirubin Negative (Negative) 06/26/24 11:54 Urine Urobilinogen 1.0 mg/dL (Negative) 06/26/24 11:54 Ur Leukocyte Esterase Trace (Negative) A 06/26/24 11:54 Urine RBC 5-10 /hpf (0-2) H 06/26/24 11:54 Urine WBC 0-4 /hpf (0-5) H 06/26/24 11:54 Ur Squamous Epith Cells None /hpf (0-5) 06/26/24 11:54 Amorphous Sediment Trace /hpf 06/26/24 11:54 Urine Bacteria Trace /hpf (NONE) 06/26/24 11:54 Urine Mucus None /hpf 06/26/24 11:54 All radiology interpretation(s) finalized by discharge Discharge Plan Discharge Patient Disposition: Home Clinical Impression: Cystitis, Nausea & vomiting, Acute urinary retention Condition: Stable Prescriptions: No Action furosemide 20 mg tablet 20 mg PO QAM pyridoxine (vitamin B6) 50 mg tablet 25 mg PO BID Spiriva Respimat 1.25 mcg/actuation mist 2 puff inhalation DAILY Qty: 4 6RF lubiprostone [Amitiza] 24 mcg capsule 24 mcg PO BID Qty: 60 3RF cilostazol 50 mg tablet 50 mg PO BID Qty: 180 3RF zinc acetate 50 mg (zinc) capsule 50 mg PO DAILY simvastatin 80 mg Tablet 40 mg PO BEDTIME finasteride 5 mg Tablet 5 mg PO QAM tamsulosin [Flomax] 0.4 mg Capsule 0.4 mg PO QPM nitroglycerin [Nitrostat] 0.4 mg Tablet, Sublingual 0.4 mg SUBLINGUAL Q5M PRN (Reason: Chest Pain) Rx Instructions: do not exceed 3 doses per episode lisinopril 5 mg Tablet 2.5 mg PO QAM verapamil 120 mg tablet 120 mg PO QAM pantoprazole [Protonix] 40 mg Tablet,Delayed Release (Dr/Ec) 40 mg PO BID ondansetron 4 mg tablet,disintegrating 4 mg PO Q6H PRN (Reason: nausea and vomiting) Qty: 20 0RF cefdinir 250 mg/5 mL suspension for reconstitution 300 mg PO BID 7 Days Qty: 84 0RF sucralfate 100 mg/mL Suspension 10 ml PO Q6H Rx Instructions: swish in mouth and swallow; use after food/drink morphine 10 mg/5 mL solution 5 - 10 mg PO Q6H PRN (Reason: pain) loperamide 2 mg Capsule 2 mg PO TID PRN (Reason: Diarrhea) Qty: 10 0RF Discharge Orders: Discharge ED (Routine); Ordered 06/26/24 Ordered By: Scott Cisneros Referrals: Angelica Cedeño MD [Primary Care Provider] - Discharge Diet: Usual diet Discharge Activity: Increase activity as tolerated Patient Instructions: Opioid Safety, Pain Management Activity Restrictions/Additional Instructions: Thank you for choosing [facility] for your healthcare needs today. It is very important that you follow up as instructed or that you return to the Emergency Department should you have concerns or if your condition changes or worsens in any way. You were seen today for because of a single positive blood culture. There is no elevation in your white count you are not been running a fever no signs of sepsis recommend that you continue the oral antibiotic. Follow-up with your primary care doctor return if you develop a fever Coding Level of Care Code ED Director Marketing Communications for Oleg Loya
[2024-06-26 11:13] VITALS: BP 113/57; PULSE 63; O2SAT 97
[2024-06-26 12:08] LABS: Bilirubin Urine Negative (Negative); Blood Urine 2+ (Negative); Glucose Urine UA Negative (Normal); Ketones Urine Negative (Negative); Leukocyte Esterase Urine Trace (Negative); Nitrate Urine Negative (Negative); Protein Urine Negative (Negative); Urine Appearance Turbid (CLEAR); Urine Color Yellow (Yellow); pH Urine 7.5 (5-7)
[2024-06-26 13:12] LABS: UA Manual Slide Review YES; UA Slide Review UA Slide Review Perf
[2024-06-26 13:14] LABS: Add Urine Culture? No; Add Urine Microscopic? YES; Amorphous Sediment Urine TRACE /hpf; Bacteria Urine TRACE /hpf; WBC Urine 0-4 /hpf (0-5)
[2024-06-26 13:41] VITALS: BP 98/44; PULSE 64; O2SAT 98
[2024-06-26 14:37] VITALS: BP 111/47; PULSE 62; O2SAT 99
== END 2024-06-26 14:38 | disposition home or self-care (01) ==
PROVIDERS: Emergency Provider Family Medicine; PCP Family Medicine
DX: N30.90 Cystitis, unspecified without hematuria (principal); R11.2 Nausea with vomiting, unspecified; R33.9 Retention of urine, unspecified; Z87.891 Personal history of nicotine dependence; Z95.0 Presence of cardiac pacemaker; I11.0 Hypertensive heart disease with heart failure; I50.9 Heart failure, unspecified; E78.5 Hyperlipidemia, unspecified; E11.9 Type 2 diabetes mellitus without complications; I25.10 Atherosclerotic heart disease of native coronary artery without angina pectoris; Z85.01 Personal history of malignant neoplasm of esophagus; Z92.21 Personal history of antineoplastic chemotherapy
CPT/HCPCS: 36415; 80053; 81001; 83605; 85025; 87040; 99283

== ENCOUNTER 2024-07-17 09:00 | Oncology outpatient (recurring) (ONCR) | payer OTHER, SELFPAY ==
[2024-07-03 09:03] LABS: Basophils % 0.5 %; Eosinophils # 0.1 10^3/uL (0.0-0.8); Eosinophils % 1.5 %; Hematocrit 40.3 % (37-53); Lymphocytes # 0.6 10^3/uL (0.8-4.8); Lymphocytes % 6.5 %; Mean Corpuscular HGB Conc 32.8 g/dL (30-55); Mean Corpuscular Hemoglobin 34.4 pg (27-33); Mean Corpuscular Volume 104.9 fl (82-101); Mean Platelet Volume 9.6 fL (7.4-10.4); Monocytes # 0.6 10^3/uL (0.2-0.9); Monocytes % 7.2 %; Neutrophils # 7.21 10^3/uL (1.8-7.7); Neutrophils % 84.1 %; Nucleated Red Blood Cells % 0 %; Platelet Count 216 10^3/cmm (157-399); Red Blood Count 3.84 10^6/uL (3.85-5.65); Red Cell Distribution Width 15.1 % (12.1-15.1); White Blood Count 8.58 10^3/uL (3.29-11.43)
[2024-07-03 09:22] LABS: Alanine Aminotransferase 16 U/L (0-41); Albumin Level 3.5 g/dL (3.5-5.2); Alkaline Phosphatase 188 U/L (40-130); Aspartate Amino Transferase 19 U/L (0-40); Blood Urea Nitrogen 15 mg/dL (8-23); Calcium 8.6 mg/dL (8.5-10.5); Carbon Dioxide 29 mmol/L (22-29); Chloride 99 mmol/L (98-107); Creatinine Clr Calc Pharmacy 58.1958; Globulin 2.8 g/dL (1.3-4.6); Glucose 145 mg/dL (65-115); Osmolality Calculated 285 mOsm/kg (285-295); Sodium 136 mmol/L (136-145); Total Bilirubin 0.7 mg/dL (0.15-1.2); Total Protein 6.3 g/dL (6.6-8.7)
--- NOTE | 2024-07-14 06:45 | CTR_ITS ---
PROCEDURE INFORMATION: Exam: CT Chest With Contrast; Diagnostic Exam date and time: 07/14/2024 6:58 AM Age: 89 years old Clinical indication: Condition or disease; Other: Esophageal cancer; Follow-up oncological assessment; Prior surgery; Surgery date: 6+ months; Surgery type: Epigastric, appy, port, pacemaker; Additional info: Followup esophageal cancer, please compared to April, scan TECHNIQUE: Imaging protocol: Diagnostic computed tomography of the chest with contrast. Radiation optimization: All CT scans at this facility use at least one of these dose optimization techniques: automated exposure control; mA and/or kV adjustment per patient size (includes targeted exams where dose is matched to clinical indication); or iterative reconstruction. Contrast material: OMNI 350; Contrast volume: 100 ml; Contrast route: INTRAVENOUS (IV); COMPARISON: [place] [id number] 05/19/2024 9:43 PM RADIATION DOSE METRICS: Total DLP (mGy-cm): 274.43 FINDINGS: Tubes, catheters and devices: Left chest wall port tip terminates in the right ventricle. Right chest wall port tip terminates in the right atrium. Lungs: Moderate emphysema. Similar mild to moderate patchy subpleural interstitial opacities. No focal consolidation. Pleural spaces: Unremarkable. No pneumothorax. No pleural effusion. Heart: Unremarkable. No cardiomegaly. No pericardial effusion. Coronary arteries: Moderate coronary artery calcification. Esophagus: Patulous fluid-filled esophagus. There is wall thickening in the distal esophagus at the GE junction. Lymph nodes: Unremarkable. No enlarged lymph nodes. Vasculature: Moderate stenosis of the SMA. Liver: Hypoattenuating lesions in the liver, similar to prior. Kidneys: No hydronephrosis. Right renal scar, unchanged. Bones/joints: Moderate degenerative changes of the spine. Soft tissues: Unremarkable. CT/CT chest w con* [id number] IMPRESSION: 1. Wall thickening of the distal esophagus, compatible with known malignancy. The esophagus is patulous and fluid-filled, placing patient at risk for aspiration. 2. Stable chronic lung disease.
[2024-07-14] MEDS: iohexol 350 mg/mL 500 mL Btl (per mL) IV (07:12)
[2024-07-17 09:18] LABS: Basophils # 0.1 10^3/uL (0.0-0.1); Basophils % 0.6 %; Eosinophils # 0.1 10^3/uL (0.0-0.8); Eosinophils % 1.4 %; Hematocrit 39.9 % (37-53); Lymphocytes # 0.7 10^3/uL (0.8-4.8); Lymphocytes % 8.8 %; Mean Corpuscular HGB Conc 32.8 g/dL (30-55); Mean Corpuscular Hemoglobin 33.6 pg (27-33); Mean Corpuscular Volume 102.3 fl (82-101); Mean Platelet Volume 8.9 fL (7.4-10.4); Monocytes # 0.6 10^3/uL (0.2-0.9); Monocytes % 7.1 %; Neutrophils # 6.34 10^3/uL (1.8-7.7); Neutrophils % 81.7 %; Nucleated Red Blood Cells % 0 %; Platelet Count 250 10^3/cmm (157-399); Red Cell Distribution Width 14.6 % (12.1-15.1); White Blood Count 7.76 10^3/uL (3.29-11.43)
[2024-07-17 09:52] LABS: Carcinoembryonic Antigen 5.3 ng/mL (0.0-4.7); Thyroid Stimulating Hormone 2.34 uIU/mL (0.27-4.20)
[2024-07-17 10:03] LABS: Alanine Aminotransferase 13 U/L (0-41); Albumin Level 3.6 g/dL (3.5-5.2); Alkaline Phosphatase 176 U/L (40-130); Anion Gap 15.1 (5-19); Aspartate Amino Transferase 19 U/L (0-40); Blood Urea Nitrogen 20 mg/dL (8-23); Calcium 8.4 mg/dL (8.5-10.5); Carbon Dioxide 27 mmol/L (22-29); Chloride 96 mmol/L (98-107); Creatinine Clr Calc Pharmacy 57.6949; Globulin 2.5 g/dL (1.3-4.6); Glucose 148 mg/dL (65-115); Lactate Dehydrogenase 151 U/L (135-225); Osmolality Calculated 283 mOsm/kg (285-295); Potassium 4.1 mmol/L (3.5-5.1); Sodium 134 mmol/L (136-145); Total Bilirubin 0.7 mg/dL (0.15-1.2); Total Protein 6.1 g/dL (6.6-8.7)
[2024-07-17] MEDS: sodium chloride 0.9% 1,000 ML 999 ML IV (11:15)
[2024-07-17 12:36] VITALS: BP 114/78; PULSE 74; RESP 18; TEMP 36.6; O2SAT 98
== END 2024-07-24 23:59 | disposition home or self-care (01) ==
PROVIDERS: Internal Medicine Medical Oncology; PCP Family Medicine; Visit Provider Internal Medicine Hematology & Oncology
DX: C15.5 Malignant neoplasm of lower third of esophagus (principal); Z53.9 Procedure and treatment not carried out, unspecified reason; Z87.891 Personal history of nicotine dependence; Z92.3 Personal history of irradiation; Z79.899 Other long term (current) drug therapy; I10 Essential (primary) hypertension
CPT/HCPCS: 71260; 80053; 82378; 83615; 84443; 85025; 96360; 99214; J7030

== ENCOUNTER 2024-07-28 15:42 | Inpatient (IN) | payer OTHER, SELFPAY ==
[2024-07-28 15:45] VITALS: BP 105/52; PULSE 88; RESP 24; TEMP 36.6; O2SAT 96; BMI 19.8
[2024-07-28 16:20] LABS: Basophils # 0.1 10^3/uL (0.0-0.1); Basophils % 0.7 %; Eosinophils # 0.1 10^3/uL (0.0-0.8); Eosinophils % 1.5 %; Hematocrit 43.6 % (37-53); Lymphocytes # 0.5 10^3/uL (0.8-4.8); Lymphocytes % 7.4 %; Mean Corpuscular HGB Conc 32.8 g/dL (30-55); Mean Corpuscular Hemoglobin 34.5 pg (27-33); Mean Corpuscular Volume 105.1 fl (82-101); Mean Platelet Volume 9.4 fL (7.4-10.4); Monocytes # 0.7 10^3/uL (0.2-0.9); Monocytes % 9.1 %; Neutrophils # 5.87 10^3/uL (1.8-7.7); Neutrophils % 80.7 %; Nucleated Red Blood Cells % 0 %; Platelet Count 255 10^3/cmm (157-399); Red Blood Count 4.15 10^6/uL (3.85-5.65); Red Cell Distribution Width 14.5 % (12.1-15.1); White Blood Count 7.27 10^3/uL (3.29-11.43)
[2024-07-28 16:38] LABS: Alanine Aminotransferase 18 U/L (0-41); Albumin Level 3.7 g/dL (3.5-5.2); Alkaline Phosphatase 189 U/L (40-130); Anion Gap 15.2 (5-19); Aspartate Amino Transferase 24 U/L (0-40); Blood Urea Nitrogen 19 mg/dL (8-23); Calcium 9.1 mg/dL (8.5-10.5); Carbon Dioxide 28 mmol/L (22-29); Chloride 98 mmol/L (98-107); Creatinine Clr Calc Pharmacy 57.6949; Globulin 3.1 g/dL (1.3-4.6); Glucose 134 mg/dL (65-115); Lipase 17 U/L (13-60); Osmolality Calculated 288 mOsm/kg (285-295); Potassium 4.2 mmol/L (3.5-5.1); Sodium 137 mmol/L (136-145); Total Bilirubin 0.4 mg/dL (0.15-1.2); Total Protein 6.8 g/dL (6.6-8.7)
--- NOTE | 2024-07-28 19:06 | ED_ITS ---
HPI - Nausea/Vomiting/Diarrhea 2 General: Chief complaint: Nausea/Vomiting/Diarrhea Stated complaint: n,v Time Seen by Provider: 07/28/24 18:50 Source: patient Mode of arrival: ambulatory Limitations: no limitations History of Present Illness: 89-year-old male has a history of esopha geal cancer. He states he has had issues with swallowing in the past he states that over the last 2 days he has not been able to relate any fluid and is just regurgitated fluids or foods. He states he is feeling fatigued and weak states he had to be in admitted for this in the past. He states he is had no fever denies any pain states he feels very weak. Associated nausea: Yes Associated symtoms: Reports fatigue, malaise and nausea; Denies chest pain or headache(s) Related Data Home Medications Medication Instructions Recorded Confirmed finasteride 5 mg tablet 5 mg PO QAM 01/12/20 07/17/24 simvastatin 80 mg tablet 40 mg PO BEDTIME 01/07/21 07/17/24 furosemide 20 mg tablet 20 mg PO QAM 01/20/21 07/17/24 lisinopril 5 mg tablet 2.5 mg PO QAM 05/08/22 07/17/24 nitroglycerin 0.4 mg sublingual 0.4 mg sublingual Q5M PRN Chest 05/08/22 07/17/24 tablet (Nitrostat) Pain pantoprazole 40 mg tablet,delayed 40 mg PO BID 05/08/22 07/17/24 release (Protonix) tamsulosin 0.4 mg capsule (Flomax) 0.4 mg PO QPM 05/08/22 07/17/24 verapamil 120 mg tablet 120 mg PO QAM 05/08/22 07/17/24 pyridoxine (vitamin B6) 50 mg 25 mg PO BID 04/12/23 07/17/24 tablet zinc acetate 50 mg (zinc) capsule 50 mg PO DAILY 04/24/24 07/17/24 morphine 10 mg/5 mL oral solution 5 - 10 mg PO Q6H PRN pain 05/20/24 07/17/24 sucralfate 100 mg/mL oral 10 ml PO Q6H 05/20/24 07/17/24 suspension Previous Rx's Medication Instructions Recorded cilostazol 50 mg tablet 50 mg PO BID #180 tabs 05/16/22 tiotropium bromide 1.25 2 puff inhalation DAILY #4 grams 04/12/23 mcg/actuation mist for inhalation (Spiriva Respimat) loperamide 2 mg capsule 2 mg PO TID PRN Diarrhea #10 caps 05/26/24 lubiprostone 24 mcg capsule 24 mcg PO BID #60 caps 06/17/24 (Amitiza) ondansetron 4 mg disintegrating 4 mg PO Q6H PRN nausea and 06/24/24 tablet vomiting #20 tabs lorazepam 1 mg tablet 0.5 - 1 mg (0.5 - 1 x 1 mg) PO Q6H 07/18/24 PRN severe nausea #30 tabs dexamethasone 4 mg tablet 8 mg (2 x 4 mg) PO .COMPLEX #60 07/25/24 tabs prochlorperazine maleate 10 mg 10 mg PO Q4H PRN mild nausea #30 07/25/24 tablet (Compazine) tabs Allergies Allergy/AdvReac Type Severity Reaction Status Date / Time No Known Allergies Allergy Verified 07/28/24 15:51 Review of Systems 2 Const: Reports: fatigue and malaise; Denies: fever(s), chills, body aches or change in appetite ENMT: Denies: throat pain or dental pain Card: Denies: chest pain Resp: Denies: dyspnea GI: Reports: nausea; Denies: abdominal pain, vomiting or diarrhea Musc: Denies: neck pain or back pain Skin/Breast: Denies: rash Neuro: Denies: headache(s) PFSH ED 2 PFSH: Medical History Dehydration Chemotherapy induced diarrhea Immunocompromised state Physical deconditioning Protein calorie malnutrition Muscle wasting Cancer cachexia Hyponatremia Hypokalemia Acute kidney injury Severe sepsis Dysphagia Anemia Leukocytosis Elevated d-dimer PE ruled out Hyperkalemia Left upper extremity swelling No DVT Heart failure Currently compensated Elevated troponin Acute and chronic respiratory failure with hypoxia Pneumonia Chest pain Hyperlipidemia Atrial flutter GERD (gastroesophageal reflux disease) Diabetes mellitus Coronary artery disease Peripheral arterial disease Diverticulosis CAD (coronary artery disease) Esophageal cancer Hypertension BPH (benign prostatic hyperplasia) Surgical History History of permanent cardiac pacemaker placement PEG (percutaneous endoscopic gastrostomy) status Status post coronary artery stent placement x 1 2007 History of incisional hernia repair x 2 H/O exploratory laparotomy I swallowed a safety pin when I was a kid and they had to open me up to get it out Status post placement of cardiac pacemaker History of foot surgery R ankle fracture S/P appendectomy H/O bilateral inguinal hernia repair Port-A-Cath in place Right subclavian Family History Other CAD (coronary artery disease) Cancer Diabetes Hyperlipidemia Denies family history of Clotting disorder Dementia Psychiatric illness Chronic kidney disease (CKD) Suicide Anesthesia complication Bleeding disorder Lung disease Hypertension Stroke Social History Smoking and tobacco/nicotine status: former use of tobacco/nicotine Quit status (tobacco/nicotine): has quit using Year quit tobacco: 1978 Former quit date comment: 2 ppd X 35 years Alcohol intake: former Former alcohol use details: Quit in September. Formerly heavy drinker Substance/Drug Use: never Lives independently: Yes Household members: spouse Marital status: Physical Exam 2 Const: COMMON NORMALS: patient oriented x3 GENERAL APPEARANCE: frail appearing HENMT: COMMON NORMALS: normocephalic and atraumatic HEAD & SCALP: n ormocephalic and atraumatic Eye: COMMON NORMALS: conjunctivae normal CONJUNCTIVA: Yes conjunctivae normal Neck/C-Spine: COMMON NORMALS: full ROM and supple Chest: COMMONS NORMALS: normal inspection of the chest Resp: COMMON NORMALS: normal respiratory effort, No retractions, No use of accessory muscles and clear to auscultation bilaterally AUSCULTATION: clear to auscultation bilaterally Cardio: COMMON NORMALS: regular rate, regular rhythm and No murmurs present (Cardio) RATE: regular rate RHYTHM: regular rhythm GI: COMMON NORMALS: Normal to inspection, nondistended, normoactive bowel sounds present, Soft to palpation, non-tender and no masses PALPATION: Yes Soft to palpation Extremity: COMMON NORMALS: normal to inspection and full ROM Neuro: COMMON NORMALS: patient oriented x3, moves all extremities and no focal motor deficits Psych: COMMON NORMALS: mental status grossly normal, Normal thought process present and cooperative THOUGHT PROCESS: Normal thought process present Skin: COMMON NORMALS: no rashes or lesions noted and no wounds GENERAL SKIN EXAM: no rashes or lesions noted Course 2 Vital Signs: Vital signs: Vital Signs Temperature 97.8 F 07/28/24 15:45 Pulse Rate 85 07/28/24 20:16 Respiratory Rate 20 H 07/28/24 20:16 Blood Pressure 128/85 07/28/24 20:16 Pulse Oximetry 100 07/28/24 20:16 Oxygen Delivery Me thod Room Air 07/28/24 20:16 MDM - Nausea/Vomiting/Diarrhea Medical Decision Making Patient presents here with failure to thrive he has not been able to tolerate any liquids or solids here he has had dysphagia in the past due to his esophageal cancer will admit at this time for failure to thrive. Medical Records I reviewed the patient's medical records. Lab Data I reviewed the patient's lab results. 07/28/24 16:04 07/28/24 16:04 Laboratory Results WBC 7.27 10^3/uL (3.29-11.43) 07/28/24 16:04 RBC 4.15 10^6/uL (3.85-5.65) 07/28/24 16:04 Hgb 14.30 g/dL (11.27-16.99) 07/28/24 16:04 Hct 43.6 % (37-53) 07/28/24 16:04 MCV 105.1 fl (82-101) H 07/28/24 16:04 MCH 34.5 pg (27-33) H 07/28/24 16:04 MCHC 32.8 g/dL (30-55) 07/28/24 16:04 RDW 14.5 % (12.1-15.1) 07/28/24 16:04 Plt Count 255 10^3/cmm (157-399) 07/28/24 16:04 MPV 9.4 fL (7.4-10.4) 07/28/24 16:04 Neut % (Auto) 80.7 % 07/28/24 16:04 Lymph % (Auto) 7.4 % 07/28/24 16:04 Holt % (Auto) 9.1 % 07/28/24 16:04 Eos % (Auto) 1.5 % 07/28/24 16:04 Baso % (Auto) 0.7 % 07/28/24 16:04 Neut # (Auto) 5.87 10^3/uL (1.8-7.7) 07/28/24 16:04 Lymph # (Auto) 0.5 10^3/uL (0.8-4.8) L 07/28/24 16:04 Holt # (Auto) 0.7 10^3/uL (0.2-0.9) 07/28/24 16:04 Eos # (Auto) 0.1 10^3/uL (0.0-0.8) 07/28/24 16:04 Baso # (Auto) 0.1 10^3/uL (0.0-0.1) 07/28/24 16:04 Nucleated RBC % (auto) 0 % 07/28/24 16:04 Nucleated RBCs # 0.0 /100WBC 07/28/24 16:04 Sodium 137 mmol/L (136-145) 07/28/24 16:04 Potassium 4.2 mmol/L (3.5-5.1) 07/28/24 16:04 Chloride 98 mmol/L (98-107) 07/28/24 16:04 Carbon Dioxide 28 mmol/L (22-29) 07/28/24 16:04 Anion Gap 15.2 (5-19) 07/28/24 16:04 BUN 19 mg/dL (8-23) 07/28/24 16:04 Creatinine 0.8 mg/dL (0.7-1.2) 07/28/24 16:04 GFR Calculation Not Reportable 07/28/24 16:04 Glucose 134 mg/dL (65-115) H 07/28/24 16:04 Calculated Osmolality 288 mOsm/kg (285-295) 07/28/24 16:04 Calcium 9.1 mg/dL (8.5-10.5) 07/28/24 16:04 Total Bilirubin 0.4 mg/dL (0.15-1.2) 07/28/24 16:04 AST 24 U/L (0-40) 07/28/24 16:04 ALT 18 U/L (0-41) 07/28/24 16:04 Alkaline Phosphatase 189 U/L (40-130) H 07/28/24 16:04 Total Protein 6.8 g/dL (6.6-8.7) 07/28/24 16:04 Albumin 3.7 g/dL (3.5-5.2) 07/28/24 16:04 Globulin 3.1 g/dL (1.3-4.6) 07/28/24 16:04 Lipase 17 U/L (13-60) 07/28/24 16:04 All radiology interpretation(s) finalized by discharge Discharge Plan Discharge Patient Disposition: Admitted As Inpatient Clinical Impression: Malignant neoplasm of lower third of esophagus, Adult failure to thrive Condition: Stable Prescriptions: No Action furosemide 20 mg tablet 20 mg PO QAM pyridoxine (vitamin B6) 50 mg tablet 25 mg PO BID Spiriva Respimat 1.25 mcg/actuation mist 2 puff inhalation DAILY Qty: 4 6RF lubiprostone [Amitiza] 24 mcg capsule 24 mcg PO BID Qty: 60 3RF cilostazol 50 mg tablet 50 mg PO BID Qty: 180 3RF zinc acetate 50 mg (zinc) capsule 50 mg PO DAILY lorazepam 1 mg tablet 0.5 - 1 mg PO Q6H PRN (Reason: severe nausea) Qty: 30 3RF dexamethasone 4 mg tablet 8 mg PO .COMPLEX Qty: 60 3RF Rx Instructions: 2 tabs BID day before and day after taxotere prochlorperazine maleate [Compazine] 10 mg tablet 10 mg PO Q4H PRN (Reason: mild nausea) Qty: 30 3RF simvastatin 80 mg Tablet 40 mg PO BEDTIME finasteride 5 mg Tablet 5 mg PO QAM tamsulosin [Flomax] 0.4 mg Capsule 0.4 mg PO QPM nitroglycerin [Nitrostat] 0.4 mg Tablet, Sublingual 0.4 mg SUBLINGUAL Q5M PRN (Reason: Chest Pain) Rx Instructions: do not exceed 3 doses per episode lisinopril 5 mg Tablet 2.5 mg PO QAM verapamil 120 mg tablet 120 mg PO QAM pantoprazole [Protonix] 40 mg Tablet,Delayed Release (Dr/Ec) 40 mg PO BID ondansetron 4 mg tablet,disintegrating 4 mg PO Q6H PRN (Reason: nausea and vomiting) Qty: 20 0RF sucralfate 100 mg/mL Suspension 10 ml PO Q6H Rx Instructions: swish in mouth and swallow; use after food/drink morphine 10 mg/5 mL solution 5 - 10 mg PO Q6H PRN (Reason: pain) loperamide 2 mg Capsule 2 mg PO TID PRN (Reason: Diarrhea) Qty: 10 0RF Referrals: Angelica Cedeño MD [Primary Care Provider] - Coding Level of Care Code ED Technical Specialist [employer] for [facility]
[2024-07-28 19:09] VITALS: BP 129/62; PULSE 76; RESP 16; O2SAT 98
[2024-07-28] MEDS: ondansetron 2 mg/ML SDV 2 mL 4 MG IVP (19:15)
[2024-07-28] MEDS: sodium chloride 0.9% 1,000 ML 999 ML IV (19:15)
[2024-07-28 19:52] VITALS: BP 125/58; PULSE 80; O2SAT 95
[2024-07-28 20:16] VITALS: BP 128/85; PULSE 85; RESP 20; O2SAT 100
--- NOTE | 2024-07-28 20:43 | P.HP_ITS ---
Providers/Chief Complaint 2 Primary Care Provider: Angelica Cedeño MD Chief Complaint: n,v History of Present Illness Bernard Alonzo is a 89 year old male with history of esophageal cancer, was recently discharged from the hospital after management of diarrhea, patient was tolerated liquid diet, Glucerna, presenting with failure to thrive, not been able to eat. Patient is losing weight, oncologist has put hold on chemotherapy for now, patient is presenting for chief complaint of losing weight, failure to thrive, not been able to eat for last 6 days. Patient is not able to ambulate more than a few steps, losing weight using a wheelchair for ambulation. He is agreeable for PEG tube placement. Patient has a history of cardiomyopathy status post AICD/pacemaker. Son is stating that Bernard had PEG tube placement right at the diagnosis of esophageal cancer which was removed couple of years ago when he started tolerating liquid diet Both patient and son agreeable for PEG tube placement EGD on 02/20/24 showing a high-grade distal esophageal stricture with ulceration, requiring TTS balloon dilatation. An esophageal biopsy showed an invasive, moderately differentiated adenocarcinoma, extensively ulcerated An irregular pulmonary nodule in RML, measuring 0.9 x 1.5cm, SUV max of 1.7, was likely inflammation. The patient was started on Nivolumab and mFOLFOX-6 regimen on 06/07/22, but stopped mFOLFOX-6 on 09/05/22 after a few cycles due to intolerable side effects, and continued on single agent Nivolumab until 03/21/23 when it was stopped due to pneumonitis. he was hospitalized on 05/19/24 for severe diarrhea due to Irinotecan, requiring IV fluids and Imodium, so Irinotecan was stopped. A repeat CT scan on 07/14/24 showed persistent wall thickening in distal esophagus, with stable hypoattenuating lesions in the liver. He continues to feel very fatigued, with low energy levels and a poor appetite, with further weight loss over the last month. Was referred by oncologist for PEG tube placement, and begin single agent Docetaxel in the next few weeks after PEG tube Review of Systems 2 Const: Reports: change in weight; Denies: fever(s) Eyes: Denies: change in vision ENMT: Denies: throat pain Card: Denies: chest pain Resp: Reports: dyspnea GI: Reports: nausea : Denies: flank pain Musc: Reports: back pain Medications/Allergies Home Medications Medication Instructions Recorded Confirmed Last Taken Type finasteride 5 mg tablet 5 mg PO QAM 01/12/20 07/17/24 05/08/22 History simvastatin 80 mg tablet 40 mg PO BEDTIME 01/07/21 07/17/24 05/07/22 History furosemide 20 mg tablet 20 mg PO QAM 01/20/21 07/17/24 05/08/22 History lisinopril 5 mg tablet 2.5 mg PO QAM 05/08/22 07/17/24 05/08/22 History nitroglycerin 0.4 mg sublingual 0.4 mg sublingual Q5M PRN Chest 05/08/22 07/17/24 Unknown History tablet (Nitrostat) Pain pantoprazole 40 mg tablet,delayed 40 mg PO BID 05/08/22 07/17/24 05/08/22 History release (Protonix) tamsulosin 0.4 mg capsule (Flomax) 0.4 mg PO QPM 05/08/22 07/17/24 05/07/22 History verapamil 120 mg tablet 120 mg PO QAM 05/08/22 07/17/24 05/08/22 History cilostazol 50 mg tablet 50 mg PO BID #180 tabs 05/16/22 07/17/24 Unknown Rx pyridoxine (vitamin B6) 50 mg 25 mg PO BID 04/12/23 07/17/24 Unknown History tablet tiotropium bromide 1.25 2 puff inhalation DAILY #4 grams 04/12/23 07/17/24 Unknown Rx mcg/actuation mist for inhalation (Spiriva Respimat) zinc acetate 50 mg (zinc) capsule 50 mg PO DAILY 04/24/24 07/17/24 Unknown History morphine 10 mg/5 mL oral solution 5 - 10 mg PO Q6H PRN pain 05/20/24 07/17/24 Unknown History sucralfate 100 mg/mL oral 10 ml PO Q6H 05/20/24 07/17/24 Unknown History suspension loperamide 2 mg capsule 2 mg PO TID PRN Diarrhea #10 caps 05/26/24 07/17/24 Unknown Rx lubiprostone 24 mcg capsule 24 mcg PO BID #60 caps 06/17/24 07/17/24 Unknown Rx (Amitiza) ondansetron 4 mg disintegrating 4 mg PO Q6H PRN nausea and 06/24/24 07/17/24 Unknown Rx tablet vomiting #20 tabs lorazepam 1 mg tablet 0.5 - 1 mg (0.5 - 1 x 1 mg) PO Q6H 07/18/24 Unknown Rx PRN severe nausea #30 tabs dexamethasone 4 mg tablet 8 mg (2 x 4 mg) PO .COMPLEX #60 07/25/24 Unknown Rx tabs prochlorperazine maleate 10 mg 10 mg PO Q4H PRN mild nausea #30 07/25/24 Unknown Rx tablet (Compazine) tabs Allergies Allergy/AdvReac Type Severity Reaction Status Date / Time No Known Allergies Allergy Verified 07/28/24 15:51 PFSH Acute 2 PFSH: Medical History Dehydration Chemotherapy induced diarrhea Immunocompromised state Physical deconditioning Protein calorie malnutrition Muscle wasting Cancer cachexia Hyponatremia Hypokalemia Acute kidney injury Severe sepsis Dysphagia Anemia Leukocytosis Elevated d-dimer PE ruled out Hyperkalemia Left upper extremity swelling No DVT Heart failure Currently compensated Elevated troponin Acute and chronic respiratory failure with hypoxia Pneumonia Chest pain Hyperlipidemia Atrial flutter GERD (gastroesophageal reflux disease) Diabetes mellitus Coronary artery disease Peripheral arterial disease Diverticulosis CAD (coronary artery disease) Esophageal cancer Hypertension BPH (benign prostatic hyperplasia) Surgical History History of permanent cardiac pacemaker placement PEG (percutaneous endoscopic gastrostomy) status Status post coronary artery stent placement x 1 2007 History of incisional hernia repair x 2 H/O exploratory laparotomy I swallowed a safety pin when I was a kid and they had to open me up to get it out Status post placement of cardiac pacemaker History of foot surgery R ankle fracture S/P appendectomy H/O bilateral inguinal hernia repair Port-A-Cath in place Right subclavian Family History Other CAD (coronary artery disease) Cancer Diabetes Hyperlipidemia Denies family history of Clotting disorder Dementia Psychiatric illness Chronic kidney disease (CKD) Suicide Anesthesia complication Bleeding disorder Lung disease Hypertension Stroke Social History Smoking and tobacco/nicotine status: former use of tobacco/nicotine Quit status (tobacco/nicotine): has quit using Year quit tobacco: 1978 Former quit date comment: 2 ppd X 35 years Alcohol intake: former Former alcohol use details: Quit in September. Formerly heavy drinker Substance/Drug Use: never Lives independently: Yes Household members: spouse Marital status: Vitals/I&O/Wt Last Vital Signs Temp 97.8 F 07/28/24 15:45 Pulse 85 07/28/24 20:16 Resp 20 H 07/28/24 20:16 BP 128/85 07/28/24 20:16 Pulse Ox 100 07/28/24 20:16 O2 Del Method Room Air 07/28/24 20:16 Weight last 48 hrs Weight 57.606 kg Physical Exam 2 Narrative: Patient is laying supine Sarcopenia GCS 15 Nonfocal neuroexam Son at the bedside Malnourished AICD pacemaker in place Abdomen soft Dehydrated Pleasant and cooperative with capacity to make decision No audible stridor or wheezing Currently on room air Data 07/28/24 16:04 07/28/24 16:04 A&P Assessment and plan (1) Adult failure to thrive: (2) Diabetes mellitus: (3) Nausea & vomiting: (4) Hematemesis: (5) BPH (benign prostatic hyperplasia): (6) COPD (chronic obstructive pulmonary disease): Plan Inability to eat liquid diet Failure to thrive Significant weight loss Esophageal stricture status post TTS balloon dilation EGD done 02/20/2024 Patient is agreeable for PEG tube placement Dr. Lai Fontenot consulted They will keep patient n.p.o. Continue D5 normal saline for now Would use IV morphine for pain management Replenish electrolytes DVT prophylaxis: SCDs Patient is full code discussed goals of care with him and his son Patient has an AICD/pacemaker he is well aware that he carries high risk of perioperative complications Oncology records reviewed Which shows that there was plan to do DoceTaxel once PEG tube was placed Attestations 2 Medical Necessity Statement*: More than 2 midnights anticipated Diagnoses Adult failure to thrive R62.7 Diabetes mellitus E11.9 Nausea & vomiting R11.2 Hematemesis K92.0 BPH (benign prostatic hyperplasia) N40.0 COPD (chronic obstructive pulmonary disease) J44.9
[2024-07-28 21:45] VITALS: BP 129/66; PULSE 83; RESP 18; O2SAT 100
[2024-07-28 21:49] VITALS: BP 142/67; PULSE 80; RESP 18; TEMP 36.4; O2SAT 99
[2024-07-28 21:56] VITALS: BMI 20.2
[2024-07-28] MEDS: dextrose 5%-sod chloride 0.9% 1,000 ML 50 ML IV (22:18)
[2024-07-29] VITALS (11 sets, daily range): BP systolic 112–149; BP diastolic 56–81; PULSE 59–73; RESP 15–20; TEMP 36.4–36.9; O2SAT 94–100
[2024-07-29 05:46] LABS: Anion Gap 11.9 (5-19); Blood Urea Nitrogen 17 mg/dL (8-23); Calcium 8.2 mg/dL (8.5-10.5); Carbon Dioxide 27 mmol/L (22-29); Chloride 106 mmol/L (98-107); Glucose 124 mg/dL (65-115); Magnesium 2.1 mg/dL (1.7-2.3); Osmolality Calculated 295 mOsm/kg (285-295); Potassium 3.9 mmol/L (3.5-5.1); Sodium 141 mmol/L (136-145)
--- NOTE | 2024-07-29 07:17 | PC.PHAR ---
[facility] is [facility], sent fax at 7am
--- NOTE | 2024-07-29 07:38 | P.CONIM_ITS ---
Providers/Reason For Consult 2 Consulting Physician/Specialty*: General Surgery Reason for Consult*: Need for gastrostomy tube Attending Physician: Dulce Linn MD Primary Care Provider: Angelica Cedeño MD History of Present Illness History of Present Illness Bernard Alonzo is a 89 year old male who has a history of esophageal cancer being treated with chemotherapy. Patient had a previous percutaneous gastrostomy about 2 to 3 years ago but he had a removal as he was able to swallow. Now he again has p.o. intolerance to clears and solids. Last endoscopy earlier this year showed a partially obstructing mass at the distal esophagus. At the moment of my evaluation patient continues to be full code and wants to do any kind of measures possible to prolong his life Review of Systems 2 General: Reports: 10 or more systems reviewed and unremarkable except in HPI and below Medications/Allergies Home Medications Medication Instructions Recorded Confirmed Last Taken Type finasteride 5 mg tablet 5 mg PO QAM 01/12/20 07/17/24 05/08/22 History simvastatin 80 mg tablet 40 mg PO BEDTIME 01/07/21 07/17/24 05/07/22 History furosemide 20 mg tablet 20 mg PO QAM 01/20/21 07/17/24 05/08/22 History lisinopril 5 mg tablet 2.5 mg PO QAM 05/08/22 07/17/24 05/08/22 History nitroglycerin 0.4 mg sublingual 0.4 mg sublingual Q5M PRN Chest 05/08/22 07/17/24 Unknown History tablet (Nitrostat) Pain pantoprazole 40 mg tablet,delayed 40 mg PO BID 05/08/22 07/17/24 05/08/22 History release (Protonix) tamsulosin 0.4 mg capsule (Flomax) 0.4 mg PO QPM 05/08/22 07/17/24 05/07/22 History verapamil 120 mg tablet 120 mg PO QAM 05/08/22 07/17/24 05/08/22 History cilostazol 50 mg tablet 50 mg PO BID #180 tabs 05/16/22 07/17/24 Unknown Rx pyridoxine (vitamin B6) 50 mg 25 mg PO BID 04/12/23 07/17/24 Unknown History tablet tiotropium bromide 1.25 2 puff inhalation DAILY #4 grams 04/12/23 07/17/24 Unknown Rx mcg/actuation mist for inhalation (Spiriva Respimat) zinc acetate 50 mg (zinc) capsule 50 mg PO DAILY 04/24/24 07/17/24 Unknown History morphine 10 mg/5 mL oral solution 5 - 10 mg PO Q6H PRN pain 05/20/24 07/17/24 Unknown History sucralfate 100 mg/mL oral 10 ml PO Q6H 05/20/24 07/17/24 Unknown History suspension loperamide 2 mg capsule 2 mg PO TID PRN Diarrhea #10 caps 05/26/24 07/17/24 Unknown Rx lubiprostone 24 mcg capsule 24 mcg PO BID #60 caps 06/17/24 07/17/24 Unknown Rx (Amitiza) ondansetron 4 mg disintegrating 4 mg PO Q6H PRN nausea and 06/24/24 07/17/24 Unknown Rx tablet vomiting #20 tabs lorazepam 1 mg tablet 0.5 - 1 mg (0.5 - 1 x 1 mg) PO Q6H 07/18/24 Unknown Rx PRN severe nausea #30 tabs dexamethasone 4 mg tablet 8 mg (2 x 4 mg) PO .COMPLEX #60 07/25/24 Unknown Rx tabs prochlorperazine maleate 10 mg 10 mg PO Q4H PRN mild nausea #30 07/25/24 Unknown Rx tablet (Compazine) tabs Allergies Allergy/AdvReac Type Severity Reaction Status Date / Time No Known Allergies Allergy Verified 07/28/24 15:51 Current Medications Generic Name Dose Route Start Last Admin Trade Name Freq PRN Reason Stop Dose Admin Dextrose/Sodium Chloride 1,000 mls @ 50 mls/hr 07/28/24 21:47 07/28/24 22:18 Dextrose 5%-Sod Chloride 0.9% IV 50 mls/hr .Q20H ALICE Administration PFSH Acute 2 PFSH: Medical History Dehydration Chemotherapy induced diarrhea Immunocompromised state Physical deconditioning Protein calorie malnutrition Muscle wasting Cancer cachexia Hyponatremia Hypokalemia Acute kidney injury Severe sepsis Dysphagia Anemia Leukocytosis Elevated d-dimer PE ruled out Hyperkalemia Left upper extremity swelling No DVT Heart failure Currently compensated Elevated troponin Acute and chronic respiratory failure with hypoxia Pneumonia Chest pain Hyperlipidemia Atrial flutter GERD (gastroesophageal reflux disease) Diabetes mellitus Coronary artery disease Peripheral arterial disease Diverticulosis CAD (coronary artery disease) Esophageal cancer Hypertension BPH (benign prostatic hyperplasia) Surgical History History of permanent cardiac pacemaker placement PEG (percutaneous endoscopic gastrostomy) status Status post coronary artery stent placement x 1 2007 History of incisional hernia repair x 2 H/O exploratory laparotomy I swallowed a safety pin when I was a kid and they had to open me up to get it out Status post placement of cardiac pacemaker History of foot surgery R ankle fracture S/P appendectomy H/O bilateral inguinal hernia repair Port-A-Cath in place Right subclavian Family History Other CAD (coronary artery disease) Cancer Diabetes Hyperlipidemia Denies family history of Clotting disorder Dementia Psychiatric illness Chronic kidney disease (CKD) Suicide Anesthesia complication Bleeding disorder Lung disease Hypertension Stroke Social History Smoking and tobacco/nicotine status: former use of tobacco/nicotine Quit status (tobacco/nicotine): has quit using Year quit tobacco: 1978 Former quit date comment: 2 ppd X 35 years Alcohol intake: former Former alcohol use details: Quit in September. Formerly heavy drinker Substance/Drug Use: never Lives independently: Yes Household members: spouse Marital status: Vitals/I&O/Wt Last Vital Signs Temp 97.8 F 07/29/24 07:36 Pulse 66 07/29/24 07:36 Resp 17 07/29/24 07:36 BP 112/65 07/29/24 07:36 Pulse Ox 98 07/29/24 07:36 O2 Del Method Room Air 07/29/24 07:36 07/28/24 07/29/24 07/29/24 22:59 06:59 14:59 Intake Total 1000 / 1000 Balance 1000 / 1000 Weight last 48 hrs Weight 131 lb 9.6 oz Weight 129 lb 11.2 oz Weight 127 lb Physical Exam 2 GI: OTHER: Abdomen is soft, nontender, there is a midline laparotomy incision that is well- healed as well as an area from a previous PEG tube placed. Data 07/28/24 16:04 07/29/24 04:50 A&P Assessment and plan (1) Malignant neoplasm of lower third of esophagus: Plan 89-year-old male with esophageal cancer, we have been consulted for possible gastrostomy tube placement. Had extensive discussion with the patient. I informed the patient that this is high probability that we do an endoscopy and there is no way for us to pass into the stomach due to the obstruction of the mass. This will leave him with the only option of proceeding with an open gastrostomy, which will be a high risk procedure for this patient due to history of previous abdominal surgery in the upper abdomen as well as previously having a PEG tube which indicated likely the stomach is adhering to the anterior abdominal wall. Patient shows understanding, he does want to proceed with upper endoscopy to evaluate for the possibility of a PEG tube placement. I have discussed all the risks of the endoscopy including the risk of perforation, bleeding, tearing of the esophagus, postprocedural hematemesis requiring additional interventions. Need for additional surgical interventions. I have explained that in the case of major tearing or perforation of the esophagus there is nothing I can do in our facility and we will likely have to transfer him to higher level of care for evaluation. I have also explained to the patient that in the case of a stricture I may need to dilate esophagus and alert to advance the endoscope, if this is done the risk of perforation increases potentially. Patient shows understanding agrees with proceeding with possible PEG tube placement. In the case of a failed procedure I will have another conversation with the patient regarding the possibility of proceeding with the feeding tube placement versus considering palliative alternatives. Coding Level of Care Code Acute Code for Chg Fwd Diagnoses Malignant neoplasm of lower third of esophagus C15.5
[2024-07-29] MEDS: pantoprazole 40 mg SDV IVP ×2 (08:49→17:06)
[2024-07-29] MEDS: sodium chloride 0.9% 1,000 ML 30 ML IV (11:20)
--- NOTE | 2024-07-29 12:02 | P.ANESASSM_ITS ---
Pre-Anesthetic Assessment Height/Weight: Height 1.7 m Weight 59.693 kg Temp Pulse Resp BP Pulse Ox O2 Del Method 97.8 F 66 17 112/65 98 Room Air 07/29/24 07:36 07/29/24 07:36 07/29/24 07:36 07/29/24 07:36 07/29/24 07:36 07/29/24 07:36 Preop Diagnosis: Dysphagia Operation Date: 07/29/24 13:45 Proposed Procedures p EGD(Not Applicable) - Walter Araujo MD s PEG Tube Insertion(Not Applicable) - Walter Araujo MD Was Beta Danielle taken within 24 hours: N/A Was Clonidine taken within 24 hours: N/A Last intake: Intake Last Liquid Date 07/26/24 Last Solid Date 07/26/24 Social No alcohol and No tobacco Exam alert, oriented x 3, clear to auscultation bilaterally and regular rate & rhythm Airway Submandibular: within normal limits Cervical ROM: within normal limits Mallampati: Class II Dentition: chipped Comments: Comments: Very poor dentition History/ROS No significant history except as noted and No significant complaints Pulmonary Exertional Dyspnea and Shortness of Breath CV/HEM Coronary Artery Disease, Myocardial Infarction and Peripheral Vascular Disease Chronic Renal Insufficiency Hepatic None reported GI Gastroesophageal Reflux Disease Metabolic Diabetes Mellitus Musc/skel Lower Back Pain and Osteoarthritis/DJD Neuropsych None reported Anesthetic Plan ASA status: 4 Anesthesia: Anesthesia Evaluation and General Risk of > 500 ml blood loss (7ml/kg in children): No Medications/Allergies Home Medications Medication Instructions Recorded Confirmed Last Taken Type finasteride 5 mg tablet 5 mg PO QAM 01/12/20 07/17/24 05/08/22 History simvastatin 80 mg tablet 40 mg PO BEDTIME 01/07/21 07/17/24 05/07/22 History furosemide 20 mg tablet 20 mg PO QAM 01/20/21 07/17/24 05/08/22 History lisinopril 5 mg tablet 2.5 mg PO QAM 05/08/22 07/17/24 05/08/22 History nitroglycerin 0.4 mg sublingual 0.4 mg sublingual Q5M PRN Chest 05/08/22 07/17/24 Unknown History tablet (Nitrostat) Pain pantoprazole 40 mg tablet,delayed 40 mg PO BID 05/08/22 07/17/24 05/08/22 History release (Protonix) tamsulosin 0.4 mg capsule (Flomax) 0.4 mg PO QPM 05/08/22 07/17/24 05/07/22 History verapamil 120 mg tablet 120 mg PO QAM 05/08/22 07/17/24 05/08/22 History cilostazol 50 mg tablet 50 mg PO BID #180 tabs 05/16/22 07/17/24 Unknown Rx pyridoxine (vitamin B6) 50 mg 25 mg PO BID 04/12/23 07/17/24 Unknown History tablet tiotropium bromide 1.25 2 puff inhalation DAILY #4 grams 04/12/23 07/17/24 Unknown Rx mcg/actuation mist for inhalation (Spiriva Respimat) zinc acetate 50 mg (zinc) capsule 50 mg PO DAILY 04/24/24 07/17/24 Unknown History morphine 10 mg/5 mL oral solution 5 - 10 mg PO Q6H PRN pain 05/20/24 07/17/24 Unknown History sucralfate 100 mg/mL oral 10 ml PO Q6H 05/20/24 07/17/24 Unknown History suspension loperamide 2 mg capsule 2 mg PO TID PRN Diarrhea #10 caps 05/26/24 07/17/24 Unknown Rx lubiprostone 24 mcg capsule 24 mcg PO BID #60 caps 06/17/24 07/17/24 Unknown Rx (Amitiza) ondansetron 4 mg disintegrating 4 mg PO Q6H PRN nausea and 06/24/24 07/17/24 Unknown Rx tablet vomiting #20 tabs lorazepam 1 mg tablet 0.5 - 1 mg (0.5 - 1 x 1 mg) PO Q6H 07/18/24 Unknown Rx PRN severe nausea #30 tabs dexamethasone 4 mg tablet 8 mg (2 x 4 mg) PO .COMPLEX #60 07/25/24 Unknown Rx tabs prochlorperazine maleate 10 mg 10 mg PO Q4H PRN mild nausea #30 07/25/24 Unknown Rx tablet (Compazine) tabs Allergies Allergy/AdvReac Type Severity Reaction Status Date / Time No Known Allergies Allergy Verified 07/28/24 15:51 Current Medications Generic Name Dose Route Start Last Admin Trade Name Freq PRN Reason Stop Dose Admin Dextrose/Sodium Chloride 1,000 mls @ 50 mls/hr 07/28/24 21:47 07/28/24 22:18 Dextrose 5%-Sod Chloride 0.9% IV 50 mls/hr .Q20H ALICE Administration Sodium Chloride 1,000 mls @ 30 mls/hr 07/29/24 05:36 07/29/24 07:45 Sodium Chloride 0.9% IV 07/30/24 05:35 Not Given .Q24H ONE Sodium Chloride 1,000 mls @ 30 mls/hr 07/29/24 11:15 07/29/24 11:20 Sodium Chloride 0.9% IV 07/30/24 11:14 30 mls/hr .Q24H ALICE Administration Pantoprazole Sodium 40 mg 07/29/24 09:00 07/29/24 08:49 Pantoprazole 40 Mg Sdv IVP 40 mg BID ALICE Administration PFSH Anesthesia Medical History Dehydration Chemotherapy induced diarrhea Immunocompromised state Physical deconditioning Protein calorie malnutrition Muscle wasting Cancer cachexia Hyponatremia Hypokalemia Acute kidney injury Severe sepsis Dysphagia Anemia Leukocytosis Elevated d-dimer PE ruled out Hyperkalemia Left upper extremity swelling No DVT Heart failure Currently compensated Elevated troponin Acute and chronic respiratory failure with hypoxia Pneumonia Chest pain Hyperlipidemia Atrial flutter GERD (gastroesophageal reflux disease) Diabetes mellitus Coronary artery disease Peripheral arterial disease Diverticulosis CAD (coronary artery disease) Esophageal cancer Hypertension BPH (benign prostatic hyperplasia) Surgical History History of permanent cardiac pacemaker placement PEG (percutaneous endoscopic gastrostomy) status Status post coronary artery stent placement x 1 2006 History of incisional hernia repair x 2 H/O exploratory laparotomy I swallowed a safety pin when I was a kid and they had to open me up to get it out Status post placement of cardiac pacemaker History of foot surgery R ankle fracture S/P appendectomy H/O bilateral inguinal hernia repair Port-A-Cath in place Right subclavian Family History Other CAD (coronary artery disease) Cancer Diabetes Hyperlipidemia Denies family history of Clotting disorder Dementia Psychiatric illness Chronic kidney disease (CKD) Suicide Anesthesia complication Bleeding disorder Lung disease Hypertension Stroke Social History Smoking and tobacco/nicotine status: former use of tobacco/nicotine Quit status (tobacco/nicotine): has quit using Year quit tobacco: 1978 Former quit date comment: 2 ppd X 35 years Alcohol intake: former Former alcohol use details: Quit in September. Formerly heavy drinker Substance/Drug Use: never Lives independently: Yes Household members: spouse Marital status: Data Anesthesia 07/28/24 16:04 07/29/24 04:50 Short CBC 07/28/24 Range/Units 16:04 WBC 7.27 (3.29-11.43) 10^3/uL Hgb 14.30 (11.27-16.99) g/dL Hct 43.6 (37-53) % MCV 105.1 H (82-101) fl Plt Count 255 (157-399) 10^3/cmm Neut % (Auto) 80.7 % Neut # (Auto) 5.87 (1.8-7.7) 10^3/uL BMP 07/28/24 07/29/24 16:04 04:50 Sodium 137 141 Potassium 4.2 3.9 Chloride 98 106 Carbon Dioxide 28 27 BUN 19 17 Creatinine 0.8 0.7 Glucose 134 H 124 H Calcium 9.1 8.2 L Liver Function 07/28/24 Range/Units 16:04 Total Bilirubin 0.4 (0.15-1.2) mg/dL AST 24 (0-40) U/L ALT 18 (0-41) U/L Alkaline Phosphatase 189 H (40-130) U/L Albumin 3.7 (3.5-5.2) g/dL Cardiac Studies: 2 Echocardiogram Ultrasound 01/07/21
--- NOTE | 2024-07-29 12:50 | ANE.PACU2 ---
Inpatient post-anesthesia follow up: Airway intact: Yes Vital signs: Temperature 97.7 F Pulse Rate 59 Respiratory Rate 15 Blood Pressure 113/70 Pulse Oximetry 96 Oxygen Delivery Me thod Room Air Oxygen Flow Rate Fraction of Inspir ed Oxygen Hydration adequate: Yes Nausea and vomiting: No Pain level: 1 Mental status: Baseline
--- NOTE | 2024-07-29 13:32 | P.PN_ITS ---
Subjective 2 Medications: Medication Review Details: Patient was seen this morning, he is alert oriented x 3, following all commands, denies any nausea, no vomiting, no fevers he is awaiting his PEG tube placement Vitals/I&O/Wt Last Vital Signs Temp 97.7 F 07/29/24 13:10 Pulse 59 L 07/29/24 13:10 Resp 15 07/29/24 13:10 BP 113/70 07/29/24 13:10 Pulse Ox 96 07/29/24 13:10 O2 Del Method Room Air 07/29/24 13:10 07/28/24 07/29/24 07/29/24 22:59 06:59 14:59 Intake Total 1000 / 1000 Balance 1000 / 1000 Weight last 48 hrs Weight 59.693 kg Weight 58.831 kg Weight 57.606 kg Physical Exam 2 Const: COMMON NORMALS: no acute distress and patient oriented x3 Resp: COMMON NORMALS: normal respiratory effort, No retractions, No use of accessory muscles and clear to auscultation bilaterally AUSCULTATION: clear to auscultation bilaterally Cardio: COMMON NORMALS: regular rate, regular rhythm, S1 normal heart sound present and S2 normal heart sound present RATE: regular rate RHYTHM: r egular rhythm HEART SOUNDS: S1 normal heart sound present and S2 normal heart sound present GI: COMMON NORMALS: Normal to inspection, nondistended, normoactive bowel sounds present and non-tender Extremity: COMMON NORMALS: no pedal edema Neuro: COMMON NORMALS: patient oriented x3 Psych: COMMON NORMALS: mental status grossly normal Data 07/28/24 16:04 07/29/24 04:50 A&P Assessment and plan (1) Adult failure to thrive: (2) Diabetes mellitus: (3) Nausea & vomiting: (4) Hematemesis: (5) BPH (benign prostatic hyperplasia): (6) COPD (chronic obstructive pulmonary disease): Plan Inability to eat liquid diet Failure to thrive Significant weight loss Esophageal stricture status post TTS balloon dilation EGD done 02/20/2024 Patient is agreeable for PEG tube placement Dr. العلي consulted They will keep patient n.p.o. Continue D5 normal saline for now Would use IV morphine for pain management Replenish electrolytes DVT prophylaxis: SCDs Patient is full code discussed goals of care with him and his son Patient has an AICD/pacemaker Oncology records reviewed Which shows that there was plan to do DoceTaxel once PEG tube was placed Attestations 2 Medical Necessity Statement*: Patient requires hospitalization for PEG tube placement Diagnoses Adult failure to thrive R62.7 Diabetes mellitus E11.9 Nausea & vomiting R11.2 Hematemesis K92.0 BPH (benign prostatic hyperplasia) N40.0 COPD (chronic obstructive pulmonary disease) J44.9
--- NOTE | 2024-07-29 15:12 | PM.MISC ---
Miscellaneous Note Purpose of Documentation: Update on patient care Note: Upper endoscopy was done, we were unable to advance to the stomach, the mass is completely obstructing now there is only a minimal opening. I have discussed the results of the endoscopy with the patient, I have informed him that at this point he is only 2 possibilities in terms of nutrition will be either a surgical gastrostomy tube versus deciding on continue with palliative care and parenteral nutrition. After extensive discussion the patient wishes to pursue surgical gastrostomy tube placement. I have explained to the patient that this is a extremely high risk procedure for complications in his clinical condition as he has history of multiple intra-abdominal surgeries and history of PE of previous PEG tube placement, this indicates that the stomach is likely already adhered to the anterior abdominal wall. I discussed the risk of perforation, enterotomy, injury to surrounding structures, bleeding, infection, hernia formation, peritonitis and . Patient states that he will still like to go forward with a surgical gastrostomy tube placement. I will take him back to the OR tomorrow for a laparoscopic, possible open gastrostomy tube placement.
[2024-07-29] MEDS: enoxaparin 40 mg/0.4 mL Syringe SUBCUT (20:18)
[2024-07-29] MEDS: dextrose 5%-sod chloride 0.9% 1,000 ML 50 ML IV (22:08)
[2024-07-30] VITALS (22 sets, daily range): BP systolic 130–153; BP diastolic 52–78; PULSE 59–92; RESP 12–18; TEMP 36.2–36.9; O2SAT 91–100
[2024-07-30 05:36] LABS: Basophils % 0.8 %; Eosinophils # 0.2 10^3/uL (0.0-0.8); Eosinophils % 4.9 %; Hematocrit 37.1 % (37-53); Lymphocytes # 0.6 10^3/uL (0.8-4.8); Lymphocytes % 12.3 %; Mean Corpuscular HGB Conc 31.5 g/dL (30-55); Mean Corpuscular Hemoglobin 33.5 pg (27-33); Mean Corpuscular Volume 106.3 fl (82-101); Mean Platelet Volume 9.3 fL (7.4-10.4); Monocytes # 0.6 10^3/uL (0.2-0.9); Monocytes % 12.3 %; Neutrophils # 3.29 10^3/uL (1.8-7.7); Neutrophils % 69.5 %; Nucleated Red Blood Cells % 0 %; Platelet Count 198 10^3/cmm (157-399); Red Blood Count 3.49 10^6/uL (3.85-5.65); Red Cell Distribution Width 14.7 % (12.1-15.1); White Blood Count 4.73 10^3/uL (3.29-11.43)
--- NOTE | 2024-07-30 05:41 | P.HPUD_ITS ---
Surgery/Procedure H&P Update DATE OF PROCEDURE: July 30, 2024 DATE H&P PERFORMED: 05/03/20 H&P UPDATE INFORMATION: I have reviewed H&P completed within last 30 days, I have examined patient prior to procedure, No changes to prior documentation and H&P is in [facility] on date indicated PREOP DIAGNOSIS: Dysphagia PLANNED PROCEDURE: Operation Date: 07/29/24 13:45 Proposed Procedures p EGD(Not Applicable) - Walter Araujo MD s PEG Tube Insertion(Not Applicable) - Walter Araujo MD Operation Date: 07/30/24 07:00 Proposed Procedures p Laparoscopic possible open gastric tube placement(Not Applicable) - Walter Araujo MD
[2024-07-30 05:58] LABS: Alanine Aminotransferase 13 U/L (0-41); Albumin Level 3.1 g/dL (3.5-5.2); Alkaline Phosphatase 137 U/L (40-130); Anion Gap 9.9 (5-19); Aspartate Amino Transferase 13 U/L (0-40); Blood Urea Nitrogen 12 mg/dL (8-23); Calcium 8.2 mg/dL (8.5-10.5); Carbon Dioxide 27 mmol/L (22-29); Chloride 111 mmol/L (98-107); Creatinine Clr Calc Pharmacy 58.5131; Globulin 1.7 g/dL (1.3-4.6); Glucose 106 mg/dL (65-115); Magnesium 2.1 mg/dL (1.7-2.3); Osmolality Calculated 298 mOsm/kg (285-295); Phosphorus 3.2 mg/dL (2.5-4.5); Potassium 3.9 mmol/L (3.5-5.1); Sodium 144 mmol/L (136-145); Total Bilirubin 0.5 mg/dL (0.15-1.2); Total Protein 4.8 g/dL (6.6-8.7)
[2024-07-30] MEDS: sodium chloride 0.9% 1,000 ML 30 ML IV (06:38)
--- NOTE | 2024-07-30 06:50 | P.ANESUD_ITS ---
Pre-Anesthetic Update Pre-Anesthetic Assessment: Date of Surgery/Procedure: 07/30/24 Preop Bekah gnosis: Dysphagia Proposed Procedure: Operation Date: 07/29/24 13:45 Proposed Procedures p EGD(Not Applicable) - Walter Araujo MD s PEG Tube Insertion(Not Applicable) - Walter Araujo MD Operation Date: 07/30/24 07:00 Proposed Procedures p Laparoscopic possible open gastric tube placement(Not Applicable) - Walter Araujo MD Any changes to Pre-Anesthetic Assessment?: No Last Intake: Intake Last Liquid Date 07/26/24 Last Solid Date 07/26/24 Labs Last 48hrs: Short CBC 07/28/24 07/30/24 Range/Units 16:04 05:14 WBC 7.27 4.73 (3.29-11.43) 10^ 3/uL Hgb 14.30 11.70 (11.27-16.99) g/ dL Hct 43.6 37.1 (37-53) % MCV 105.1 H 106.3 H (82-101) fl Plt Count 255 198 (157-399) 10^3/c mm Neut % (Auto) 80.7 69.5 % Neut # (Auto) 5.87 3.29 (1.8-7.7) 10^3/u L BMP 07/28/24 07/29/24 07/30/24 16:04 04:50 05:14 Sodium 137 141 144 Potassium 4.2 3.9 3.9 Chloride 98 106 111 H Carbon Dioxide 28 27 27 BUN 19 17 12 Creatinine 0.8 0.7 0.7 Glucose 134 H 124 H 106 Calcium 9.1 8.2 L 8.2 L Liver Function 07/28/24 07/30/24 Range/Units 16:04 05:14 Total Bilirubin 0.4 0.5 (0.15-1.2) mg/dL AST 24 13 (0-40) U/L ALT 18 13 (0-41) U/L Alkaline Phosphata se 189 H 137 H (40-130) U/L Albumin 3.7 3.1 L (3.5-5.2) g/dL Vitals: Temperature 97.9 F 07/30/24 06:28 Temperature Source Temporal Artery S can 07/30/24 06:28 Pulse Rate 60 07/30/24 06:28 Pulse Rhythm Regular 07/28/24 20:16 Respiratory Rate 16 07/30/24 06:28 Respiratory Effort Spontaneous, Non- Labored 07/28/24 21:58 Respiratory Depth Normal 07/28/24 21:58 Respiratory Patter n Normal 07/28/24 21:58 Blood Pressure 133/59 07/30/24 06:28 Blood Pressure Cheyanne n 83 07/30/24 06:28 Blood Pressure Pos ition Semi Fowlers 07/30/24 03:52 Pulse Oximetry 98 07/30/24 06:28 Oxygen Delivery Me thod Room Air 07/30/24 06:28 Sepsis Recent Feve r Within 48 Hours No 07/28/24 15:45 Exam: Pre-Anes Outpt Exam: alert, oriented x 3, clear to auscultation bilaterally and regular rate & rhythm Cardiac Studies: Echocardiogram Ultrasound 01/07/21
[2024-07-30] MEDS: ceFAZolin 2,000 mg SDV 2000 MG IVP ×3 (07:20→23:21)
[2024-07-30] MEDS: BUPivacaine 0.5% INJ 10 mL INJECTION (08:43)
[2024-07-30] MEDS: lidocaine-epi 1% 20 mL INJ 10 ML INJECTION (08:43)
--- NOTE | 2024-07-30 08:46 | PC.SOCIAL ---
IMM Updated Updated pt on IMM. No questions voiced. Provided pt a copy. Initialed, dated, & timed a copy & placed in chart.
--- NOTE | 2024-07-30 08:47 | P.OP_ITS ---
Operative Report Date of procedure: July 30, 2024 Pre-op diagnosis: Obstructing esophageal cancer Post-op diagnosis: same Post-op findings: Severe intra-abdominal adhesions from the omentum to the anterior abdominal wall, from the stomach to the anterior abdominal wall, from the stomach to the liver. No evidence of remanent fistulous tract between the stomach and the skin, this has been entirely replaced by fatty tissue. Procedure done: Laparotomy with open gastrostomy tube placement Specimens removed/disposition: None Surgeon: Walter Araujo MD Ammonium Sulfate Operator: DEE OR Staff Estimated blood loss: 10 Complications: None Brief History: This is a 89-year-old male with the obstructing esophageal mass, we discussed the possibility of proceeding with an open gastrostomy tube placement, after discussion risk benefits he was taken to the OR. Procedure: Patient was taken to the OR, he was placed in a supine position. General anesthesia was given. The abdomen was prepped and draped in the usual sterile fashion. Timeout was conducted. The abdomen was accessed via epigastric midline laparotomy incision, patient had a previous surgical history we used the previous surgical scar to go through the upper abdomen, the incision was deepened until the fascia was identified, the fascia was carefully opened with electrocautery, upon immediate entering into the abdominal cavity severe adhesions from the omentum to the anterior abdominal wall were noted, with careful blunt and sharp dissection I was able to take down the omentum from the anterior abdominal wall. In the more cephalad portion the stomach appeared to be partially adhered to the anterior abdominal wall with careful blunt dissection I was able to take this down, there was no evidence of a remanent of the fistulous track between the stomach on the skin from the previous PEG tube. The anterior stomach was adhered to the liver. With careful dissection with Metzenbaum and electrocautery I was able to release this adhesions. Once I did this identify a good place for the gastrostomy tube about 8 centimeters from the pylorus. The stomach was grasped with [place] clamps. I then proceeded to create a small opening on the skin in the left upper quadrant, this opening was done with electrocautery and I used a hemostat to create a tract from the skin into the peritoneum, I then used a clamp to the liver a 20 Hungarian gastrostomy tube from the skin into the peritoneum. The balloon was tested and was working properly. I then proceeded to fix the stomach to the anterior abdominal wall with 2 stay sutures using #2-0 silk, the sutures were Loose to be tied after complete insertion of the tube. I then proceeded to create a pursestring suture in the stomach in the area where the tube was going to be located. I then made a small enterotomy in the stomach in the center of the pursestring, careful consideration was taken not to injure the posterior wall of the stomach, I then inserted the gastric tube inside of the lumen of the stomach. The pursestring was tied down. The balloon was insufflated and the patency of the tube was tested with saline, 4 cc of saline was inserted in the stomach and then retr ieved. I then proceeded to tie down the stay sutures from the stomach to anterior abdominal wall. Hemostasis was verified. I then proceeded with closure of the laparotomy incision using #1 PDS to close the fascia, #3-0 Vicryl for the subcutaneous tissue and #4 Monocryl for the skin. Local anesthesia was applied, Dermabond was applied. The bumper was then adjusted to the skin and the 2 was noted to be at 3 cm at the level of the skin, the bumper was fixed with one 2-0 silk suture. At the end of the procedure all counts were correct, the patient tolerated well the procedure was transferred to the PACU in stable condition.
--- NOTE | 2024-07-30 08:56 | PM.MISC ---
Miscellaneous Note Purpose of Documentation: Update on patient care Note: Open gastrostomy tube was created today. Patient should stay strictly n.p.o. over the next 24 hours, tomorrow morning we will obtain an x-ray with contrast to verify positioning after that he can be started on tube feeds as guided by nutrition.
--- NOTE | 2024-07-30 09:05 | PC.CHAP ---
Pastoral Care Encounter/Spiritual Assessment Type of Contact [] Declined agricultural real estate agent visit [] Patient/Family/Request visit [] Outpatient visit [] Follow-up visit [] Physician referral [] Code/Alert [] Routine visit [] Staff referral [] Actively dying [] Patient sleeping [] Family support [] [x] Out of room [] Palliative care [] [] Receiving care in room [] Pre-surgical visit [] Trauma [] Long length of stay [] ICU visit [] Other: Relational/Emotional Strength [] Patient feels connected with others/family/visitors/staff [] Distress [] Loneliness/isolation [] Abandonment Spirituality of Patient [] Person of Pallavi [] Attends Caodaism of their Pallavi [] Believes in Prayer [] Reads Bible or Zoroastrian materials [] There are Spiritual issues to be addressed Tanbark Laborer Interventions [] Prayer [] Active listening [] Non-anxious presence [] Spiritual/emotional support [] Crisis/trauma care [] Spiritual counseling [] Bereavement support [] Provided bereavement packet [] Provided Bible/devotional materials [] Provided toy/stuffed animal, coloring book to patient or family member [] Provided Communion [] Anointing/[place] [] Salvation [] Completed spiritual assessment [] Other: Impact on Illness or Injury [] Angry [] Fearful [] Anxious [] Often cries [] Exhaustion [] Unable to work [] Unable to attend sikhism [] Unable to walk/stand [] Unable to read [] Unable to drive [] Unable to eat/drink [] Unable to sleep [] Unable to be with family [] Patient intubated [] Other: Summary Time spent with patient
[2024-07-30] MEDS: ondansetron 2 mg/ML SDV 2 mL 4 MG IVP ×2 (09:12→09:17)
[2024-07-30] MEDS: metoclopramide 5 mg/mL SDV 2 mL 10 MG IVP ×2 (09:24→09:29)
--- NOTE | 2024-07-30 09:40 | ANE.PACU2 ---
Inpatient post-anesthesia follow up: Airway intact: Yes Vital signs: Temperature 97.5 F Pulse Rate 77 Respiratory Rate 17 Blood Pressure 151/67 Pulse Oximetry 94 Oxygen Delivery Me thod Room Air Oxygen Flow Rate 6 Fraction of Inspir ed Oxygen Hydration adequate: Yes Nausea and vomiting: No Pain level: 1 Mental status: Baseline
[2024-07-30] MEDS: morphine 4 mg/mL SDV 1 mL 2 MG IVP ×3 (12:37→21:41)
--- NOTE | 2024-07-30 16:01 | P.PN_ITS ---
Subjective 2 Subjective: Patient was seen this morning, he was seen after his PEG tube placement, he has no specific complaints, Vitals/I&O/Wt Last Vital Signs Temp 97.6 F 07/30/24 15:14 Pulse 77 07/30/24 15:14 Resp 17 07/30/24 15:14 BP 130/52 07/30/24 15:14 Pulse Ox 91 07/30/24 15:14 O2 Del Method Room Air 07/30/24 15:14 O2 Flow Rate 6 07/30/24 08:57 07/30/24 07/30/24 07/30/24 06:59 14:59 22:59 Intake Total 1100 / 1100 Output Total Balance 1090 / 1090 Weight last 48 hrs Weight 59.829 kg Weight 59.693 kg Weight 58.831 kg Physical Exam 2 Const: COMMON NORMALS: no acute distress and patient oriented x3 Resp: COMMON NORMALS: normal respiratory effort, No retractions, No use of accessory muscles and clear to auscultation bilaterally AUSCULTATION: clear to auscultation bilaterally Cardio: COMMON NORMALS: regular rate, regular rhythm, S1 normal heart sound present and S2 normal heart sound present RATE: regular rate RHYTHM: r egular rhythm HEART SOUNDS: S1 normal heart sound present and S2 normal heart sound present GI: COMMON NORMALS: Normal to inspection, nondistended, normoactive bowel sounds present and non-tender OTHER: Abdominal binder in place Extremity: COMMON NORMALS: no pedal edema Neuro: COMMON NORMALS: patient oriented x3 Psych: COMMON NORMALS: mental status grossly normal Data 07/30/24 05:14 07/30/24 05:14 A&P Assessment and plan (1) Adult failure to thrive: (2) Diabetes mellitus: (3) Nausea & vomiting: (4) Hematemesis: (5) BPH (benign prostatic hyperplasia): (6) COPD (chronic obstructive pulmonary disease): Plan Inability to eat liquid diet Failure to thrive Significant weight loss Esophageal stricture status post TTS balloon dilation EGD done 02/20/2024 Patient is agreeable for PEG tube placement Dr. العلي consulted Status post PEG tube placement Continue D5 normal salin Would use IV morphine for pain management Replenish electrolytes DVT prophylaxis: SCDs Patient is full code discussed goals of care with him and his son Patient has an AICD/pacemaker Oncology records reviewed Which shows that there was plan to do DoceTaxel once PEG tube was placed Spoke to general surgery, plan on starting PEG tube feeding tomorrow, trickle tube feedings after a KUB Attestations 2 Medical Necessity Statement*: Patient requires hospitalization for failure to thrive, required PEG tube placement, will require trial through PEG tube tomorrow with trickle tube feedings and potentially bolus tube feedings based on clinical progress continue IV fluids today, spoke to general surgery, Diagnoses Adult failure to thrive R62.7 Diabetes mellitus E11.9 Nausea & vomiting R11.2 Hematemesis K92.0 BPH (benign prostatic hyperplasia) N40.0 COPD (chronic obstructive pulmonary disease) J44.9
[2024-07-30] MEDS: pantoprazole 40 mg SDV IVP (17:39)
[2024-07-30] MEDS: dextrose 5%-sod chloride 0.9% 1,000 ML 50 ML IV (17:44)
[2024-07-30] MEDS: enoxaparin 40 mg/0.4 mL Syringe SUBCUT (21:40)
[2024-07-31] VITALS (11 sets, daily range): BP systolic 117–153; BP diastolic 57–77; PULSE 64–88; RESP 14–18; TEMP 36.4–37; O2SAT 91–97; BMI 21.8
[2024-07-31] MEDS: dextrose 5%-sod chloride 0.9% 1,000 ML 100 ML IV ×2 (03:23→13:03)
[2024-07-31 05:57] LABS: Basophils % 0.4 %; Eosinophils % 0.5 %; Hematocrit 37.3 % (37-53); Lymphocytes # 0.4 10^3/uL (0.8-4.8); Lymphocytes % 4.6 %; Mean Corpuscular HGB Conc 31.6 g/dL (30-55); Mean Corpuscular Volume 107.5 fl (82-101); Mean Platelet Volume 9.3 fL (7.4-10.4); Monocytes # 0.7 10^3/uL (0.2-0.9); Monocytes % 9.2 %; Neutrophils # 6.66 10^3/uL (1.8-7.7); Nucleated Red Blood Cells % 0 %; Platelet Count 194 10^3/cmm (157-399); Red Blood Count 3.47 10^6/uL (3.85-5.65); White Blood Count 7.83 10^3/uL (3.29-11.43)
[2024-07-31 06:13] LABS: Alanine Aminotransferase < 5 U/L (0-41); Albumin Level 2.9 g/dL (3.5-5.2); Alkaline Phosphatase 137 U/L (40-130); Anion Gap 12.4 (5-19); Aspartate Amino Transferase 21 U/L (0-40); Blood Urea Nitrogen 7 mg/dL (8-23); Carbon Dioxide 24 mmol/L (22-29); Chloride 115 mmol/L (98-107); Creatinine Clr Calc Pharmacy 59.7652; Globulin 2.4 g/dL (1.3-4.6); Glucose 131 mg/dL (65-115); Magnesium 1.9 mg/dL (1.7-2.3); Osmolality Calculated 306 mOsm/kg (285-295); Phosphorus 2.4 mg/dL (2.5-4.5); Potassium 3.4 mmol/L (3.5-5.1); Sodium 148 mmol/L (136-145); Total Bilirubin 0.4 mg/dL (0.15-1.2); Total Protein 5.3 g/dL (6.6-8.7)
[2024-07-31] MEDS: ceFAZolin 2,000 mg SDV 2000 MG IVP (06:29)
[2024-07-31] MEDS: ondansetron 2 mg/ML SDV 2 mL 4 MG IVP (06:35)
[2024-07-31] MEDS: morphine 4 mg/mL SDV 1 mL 2 MG IVP ×3 (06:36→21:08)
--- NOTE | 2024-07-31 07:01 | XR_ITS ---
WS: [id number] XR abdomen 1V* [id number] REASON FOR EXAM: Gastric tube placement (needs gastrografin) FINDINGS: There is contrast within the gastrostomy tube and there is contrast pooling in the fundus of the stom ach. Vascular stent overlying the left common iliac region. Unremarkable bowel gas pattern with no free air or retroperitoneal air. XR/XR abdomen 1V* [id number] IMPRESSION: Contrast injected through the gastrostomy tube fills the stomach without extra gastric extravasation identified.
--- NOTE | 2024-07-31 07:03 | P.PN_ITS ---
Subjective 2 Subjective: Postoperative day 1 status post open gastrectomy.Patient is doing okay complains of some soreness at the level of the incision site but lower than that is feeling fine. Vitals/I&O/Wt Last Vital Signs Temp 98.6 F 07/31/24 04:51 Pulse 88 07/31/24 04:51 Resp 16 07/31/24 06:36 BP 138/77 07/31/24 04:51 Pulse Ox 91 07/31/24 06:36 O2 Del Method Nasal Cannula 07/31/24 04:51 O2 Flow Rate 2 07/31/24 04:51 07/30/24 07/31/24 07/31/24 22:59 06:59 14:59 Intake Total 1055.833 / 2155.833 813.333 / 2969.166 Output Total 1000 / 1010 Balance 1055.833 / 2145.833 -186.667 / 1959.166 Weight last 48 hrs Weight 139 lb 6.4 oz Weight 131 lb 14.4 oz Physical Exam 2 GI: OTHER: Abdomen is soft, appropriately tender to palpation, nondistended, gastric tube in place Urinary Catheter Management: Argueta: Cath Placed During This Visit: yes Reason for Continuing Indwelling Catheter: Acute Urinary Retention or Obstruction Urinary Catheter Date of Insertion: 07/30/24 Urinary Catheter Time of Insertion: 22:05 Data 07/31/24 05:37 07/31/24 05:37 A&P Assessment and plan (1) GI bleeding: (2) Nausea & vomiting: Plan We will obtain a x-ray today to verify positioning, once x-rays done and I will clear the patient to start tube feeds as guided by nutrition. Attestations 2 Medical Necessity Statement*: Per medical team Coding Level of Care Code Acute Code for Chg Fwd Diagnoses GI bleeding K92.2 Nausea & vomiting R11.2
[2024-07-31] MEDS: acetaminophen 1,000 MG/100 ML PIGGYBACK 400 MG IV ×3 (09:04→23:58)
[2024-07-31] MEDS: potassium phosphate (mEq K) 40 MEQ in sodium chloride 0.9% (100 ml) 100 ML 27.25 MEQ IV (09:08)
[2024-07-31] MEDS: pantoprazole 40 mg SDV IVP ×2 (09:13→17:44)
--- NOTE | 2024-07-31 10:01 | PC.CHAP ---
Pastoral Care Encounter/Spiritual Assessment Type of Contact [] Declined fuel cell technician visit [] Patient/Family/Request visit [] Outpatient visit [] Follow-up visit [] Physician referral [] Code/Alert [x] Routine visit [] Staff referral [] Actively dying [] Patient sleeping [] Family support [] [] Out of room [] Palliative care [] [] Receiving care in room [] Pre-surgical visit [] Trauma [] Long length of stay [] ICU visit [] Other: Relational/Emotional Strength [x] Patient feels connected with others/family/visitors/staff [] Distress [] Loneliness/isolation [] Abandonment Spirituality of Patient [x] Person of Pallavi [] Attends Spiritism of their Pallavi [x] Believes in Prayer [] Reads Bible or Jain materials [] There are Spiritual issues to be addressed [employer] 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 Interventions [x] Prayer [] Active listening [x] Non-anxious presence [x] Spiritual/emotional support [] Crisis/trauma care [] Spiritual counseling [] Bereavement support [] Provided bereavement packet [] Provided Bible/devotional materials [] Provided toy/stuffed animal, coloring book to patient or family member [] Provided Communion [] Anointing/[place] [] Salvation [x] Completed spiritual assessment [] Other: Impact on Illness or Injury [] Angry [] Fearful [] Anxious [] Often cries [] Exhaustion [] Unable to work [] Unable to attend caodaism [] Unable to walk/stand [] Unable to read [] Unable to drive [] Unable to eat/drink [] Unable to sleep [] Unable to be with family [] Patient intubated [] Other: Summary Time spent with patient 5 min
--- NOTE | 2024-07-31 10:12 | PM.MISC ---
Miscellaneous Note Purpose of Documentation: Update on patient care Note: Xray done and shows good stomach filling of contrast without extravasation. Tube is cleared to be used. Can be started on trickle feeds and advanced to goal as tolerated
--- NOTE | 2024-07-31 11:23 | PC.NUTR ---
Home bolus regimen: TwoCal HN @ 4 cartons daily with 200 ml q4 FWF (this regimen provides 1900 kcals and 80 g/pro daily; 100% of needs) -for inpatient, substitute TwoCal HN with Vital Cuisine (RD provided at bedside for nursing use) using gravity bag.
--- NOTE | 2024-07-31 15:39 | P.PN_ITS ---
Subjective 2 Subjective: Patient was seen this morning, denies any fevers, chills, no cough no abdominal pain, would discussed starting trickle tube feeds and monitoring for 24 hours Spoke to general surgery, will start trickle tube feeds today, monitor for 24 hours Vitals/I&O/Wt Last Vital Signs Temp 97.5 F L 07/31/24 11:34 Pulse 70 07/31/24 11:34 Resp 16 07/31/24 13:03 BP 117/61 07/31/24 11:34 Pulse Ox 96 07/31/24 11:34 O2 Del Method Nasal Cannula 07/31/24 11:34 O2 Flow Rate 2 07/31/24 11:34 07/31/24 07/31/24 07/31/24 06:59 14:59 22:59 Intake Total 813.333 / 2969.166 1175.1776 / 1175.1776 Output Total 1000 / 1010 Balance -186.667 / 0872.700 1499.1776 / 1175.1776 Weight last 48 hrs Weight 63.231 kg Weight 59.829 kg Physical Exam 2 Const: COMMON NORMALS: no acute distress and patient oriented x3 Resp: COMMON NORMALS: normal respiratory effort, No retractions, No use of accessory muscles and clear to auscultation bilaterally AUSCULTATION: clear to auscultation bilaterally Cardio: COMMON NORMALS: regular rate, regular rhythm, S1 normal heart sound present and S2 normal heart sound present RATE: regular rate RHYTHM: r egular rhythm HEART SOUNDS: S1 normal heart sound present and S2 normal heart sound present GI: COMMON NORMALS: Normal to inspection, nondistended, normoactive bowel sounds present and non-tender OTHER: Abdominal binder in place Extremity: COMMON NORMALS: no pedal edema Neuro: COMMON NORMALS: patient oriented x3 Psych: COMMON NORMALS: mental status grossly normal Urinary Catheter Management: Argueta: Cath Placed During This Visit: yes Reason for Continuing Indwelling Catheter: Acute Urinary Retention or Obstruction Urinary Catheter Date of Insertion: 07/30/24 Urinary Catheter Time of Insertion: 22:05 Data 07/31/24 05:37 07/31/24 05:37 A&P Assessment and plan (1) Adult failure to thrive: (2) Diabetes mellitus: (3) Nausea & vomiting: (4) Hematemesis: (5) BPH (benign prostatic hyperplasia): (6) COPD (chronic obstructive pulmonary disease): Plan Inability to eat liquid diet Failure to thrive Significant weight loss Esophageal stricture status post TTS balloon dilation EGD done 02/20/2024 Patient is agreeable for PEG tube placement Dr. العلي consulted Status post PEG tube placement Continue D5 normal saline Would use IV morphine for pain management Replenish electrolytes DVT prophylaxis: SCDs Patient is full code discussed goals of care with him and his son Patient has an AICD/pacemaker Oncology records reviewed Which shows that there was plan to do DoceTaxel once PEG tube was placed Spoke to general surgery, start trickle tube feeds, Osmolite at 10 cc an hour with fluid flushes free water flushes 100 cc every 4 hours, decrease D5 normal saline to 100 cc an hour, replace potassium replacement, serial abdominal exams, Attestations 2 Medical Necessity Statement*: Patient requires hospitalization for failure to thrive status post PEG tube placement, required trickle tube feeds inpatient monitoring electrolyte replacement Diagnoses Adult failure to thrive R62.7 Diabetes mellitus E11.9 Nausea & vomiting R11.2 Hematemesis K92.0 BPH (benign prostatic hyperplasia) N40.0 COPD (chronic obstructive pulmonary disease) J44.9
[2024-07-31] MEDS: sucralfate 1 gm/10 mL Oral Liq UDC PO (21:07)
[2024-07-31] MEDS: enoxaparin 40 mg/0.4 mL Syringe SUBCUT (21:07)
[2024-07-31] MEDS: atorvastatin 40 mg Tablet PO (21:07)
[2024-08-01] VITALS (8 sets, daily range): BP systolic 117–161; BP diastolic 53–66; PULSE 67–82; RESP 16–19; TEMP 36.4–36.8; O2SAT 91–96
[2024-08-01] MEDS: dextrose 5%-sod chloride 0.9% 1,000 ML 100 ML IV (00:08)
[2024-08-01] MEDS: sucralfate 1 gm/10 mL Oral Liq UDC PO ×4 (01:50→20:36)
[2024-08-01 05:23] LABS: Basophils % 0.4 %; Eosinophils # 0.3 10^3/uL (0.0-0.8); Eosinophils % 4.1 %; Hematocrit 33.9 % (37-53); Lymphocytes # 0.5 10^3/uL (0.8-4.8); Lymphocytes % 6.6 %; Mean Corpuscular Hemoglobin 33.3 pg (27-33); Mean Corpuscular Volume 107.6 fl (82-101); Mean Platelet Volume 9.7 fL (7.4-10.4); Monocytes # 0.5 10^3/uL (0.2-0.9); Monocytes % 7.6 %; Neutrophils # 5.51 10^3/uL (1.8-7.7); Neutrophils % 80.9 %; Nucleated Red Blood Cells % 0 %; Platelet Count 160 10^3/cmm (157-399); Red Blood Count 3.15 10^6/uL (3.85-5.65); Red Cell Distribution Width 14.9 % (12.1-15.1); White Blood Count 6.82 10^3/uL (3.29-11.43)
[2024-08-01 05:48] LABS: Alanine Aminotransferase < 5 U/L (0-41); Albumin Level 2.4 g/dL (3.5-5.2); Alkaline Phosphatase 123 U/L (40-130); Anion Gap 10.3 (5-19); Aspartate Amino Transferase 14 U/L (0-40); Blood Urea Nitrogen 6 mg/dL (8-23); Calcium 7.8 mg/dL (8.5-10.5); Carbon Dioxide 24 mmol/L (22-29); Chloride 113 mmol/L (98-107); Creatinine Clr Calc Pharmacy 60.2492; Globulin 2.3 g/dL (1.3-4.6); Glucose 107 mg/dL (65-115); Magnesium 1.8 mg/dL (1.7-2.3); Osmolality Calculated 296 mOsm/kg (285-295); Phosphorus 2.3 mg/dL (2.5-4.5); Potassium 3.3 mmol/L (3.5-5.1); Sodium 144 mmol/L (136-145); Total Bilirubin 0.4 mg/dL (0.15-1.2); Total Protein 4.7 g/dL (6.6-8.7)
[2024-08-01] MEDS: finasteride 5 mg Tablet PO (06:28)
--- NOTE | 2024-08-01 07:47 | P.PN_ITS ---
Subjective 2 Subjective: Patient doing well this morning, has tolerated trickle tube feeds overnight. No significant abdominal distention or pain there are some soreness at the level of the incision. Only complaint at the moment is that he has difficulty mobilizing secretions due to a sore throat. Vitals/I&O/Wt Last Vital Signs Temp 97.7 F 08/01/24 07:28 Pulse 68 08/01/24 07:28 Resp 18 08/01/24 07:28 BP 135/59 08/01/24 07:28 Pulse Ox 91 08/01/24 07:28 O2 Del Method Nasal Cannula 08/01/24 07:28 O2 Flow Rate 2 07/31/24 20:00 07/31/24 08/01/24 08/01/24 22:59 06:59 14:59 Intake Total 100 / 1275.1776 1821.667 / 3096.8446 Output Total 450 / 450 300 / 750 Balance -350 / 825.1776 1521.667 / 2346.8446 Weight last 48 hrs Weight 142 lb 4.8 oz Weight 139 lb 6.4 oz Physical Exam 2 GI: OTHER: Abdomen is soft nontender nondistended, surgical incision is healing well, gastric tube is in place no leakage. 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 Once tolerating tube feeds he is okay to transition to the outpatient setting per surgery. -Okay to advance tube feeds -Follow-up with general surgery in 2 weeks Attestations 2 Medical Necessity Statement*: Per medical team Coding Level of Care Code Acute Code for Chg Fwd Diagnoses Malignant neoplasm of lower third of esophagus C15.5
[2024-08-01] MEDS: magnesium sulfate premix 1 GM/100 ML PIGGYBACK IV (09:09)
[2024-08-01] MEDS: pyridoxine 50 mg Tablet 25 MG PO ×2 (09:11→18:02)
[2024-08-01] MEDS: cilostazol 100 mg Tablet 50 MG PO ×2 (09:11→18:03)
[2024-08-01] MEDS: tamsulosin 0.4 mg Capsule PO (09:11)
[2024-08-01] MEDS: pantoprazole 40 mg SDV IVP ×2 (09:12→18:03)
[2024-08-01] MEDS: potassium phosphate (mEq K) 40 MEQ in sodium chloride 0.9% (100 ml) 100 ML 27.25 MEQ IV (11:01)
--- NOTE | 2024-08-01 12:39 | PC.SOCIAL ---
IMM Updated Updated pt on IMM. No questions voiced. Provided pt a copy. Initialed, dated, & timed copy in chart.
[2024-08-01] MEDS: morphine 4 mg/mL SDV 1 mL 2 MG IVP (15:11)
--- NOTE | 2024-08-01 15:48 | P.PN_ITS ---
Subjective 2 Subjective: Patient was seen this morning, no fevers, no chills, no cough no abdominal pain with trickle tube feeds, discussed advancing him to bolus tube feedings, he is agreeable Vitals/I&O/Wt Last Vital Signs Temp 98.0 F 08/01/24 15:04 Pulse 82 08/01/24 15:04 Resp 16 08/01/24 15:11 BP 161/63 08/01/24 15:04 Pulse Ox 93 08/01/24 15:04 O2 Del Method Nasal Cannula 08/01/24 15:04 O2 Flow Rate 3 08/01/24 14:34 08/01/24 08/01/24 08/01/24 06:59 14:59 22:59 Intake Total 1821.667 / 3096.8446 100 / 395 688.4101 / 208.5106 Output Total 300 / 750 300 / 300 Balance 1521.667 / 2346.8446 100 / 100 -191.4894 / -91.4894 Weight last 48 hrs Weight 64.546 kg Weight 63.231 kg Physical Exam 2 Const: COMMON NORMALS: no acute distress and patient oriented x3 Resp: COMMON NORMALS: normal respiratory effort, No retractions, No use of accessory muscles and clear to auscultation bilaterally AUSCULTATION: clear to auscultation bilaterally Cardio: COMMON NORMALS: regular rate, regular rhythm, S1 normal heart sound present and S2 normal heart sound present RATE: regular rate RHYTHM: r egular rhythm HEART SOUNDS: S1 normal heart sound present and S2 normal heart sound present GI: COMMON NORMALS: Normal to inspection, nondistended, normoactive bowel sounds present and non-tender Extremity: COMMON NORMALS: no pedal edema Neuro: COMMON NORMALS: patient oriented x3 Psych: COMMON NORMALS: mental status grossly normal Urinary Catheter Management: Argueta: Cath Placed During This Visit: yes Reason for Continuing Indwelling Catheter: Acute Urinary Retention or Obstruction Urinary Catheter Date of Insertion: 07/30/24 Urinary Catheter Time of Insertion: 22:05 Data 08/01/24 04:57 08/01/24 04:57 A&P Assessment and plan (1) Adult failure to thrive: (2) Diabetes mellitus: (3) Nausea & vomiting: (4) Hematemesis: (5) BPH (benign prostatic hyperplasia): (6) COPD (chronic obstructive pulmonary disease): Plan Inability to eat liquid diet Failure to thrive Significant weight loss Esophageal stricture status post TTS balloon dilation EGD done 02/20/2024 Patient is agreeable for PEG tube placement Dr. العلي consulted Status post PEG tube placement Continue D5 normal saline Would use IV morphine for pain management Replenish electrolytes DVT prophylaxis: SCDs Patient is full code discussed goals of care with him and his son Patient has an AICD/pacemaker Oncology records reviewed Which shows that there was plan to do DoceTaxel once PEG tube was placed Patient has tolerated trickle tube feeds, will advance to bolus tube feedings as per dietary's recommendations Attestations 2 Medical Necessity Statement*: Patient requires hospitalization for failure to thrive, Diagnoses Adult failure to thrive R62.7 Diabetes mellitus E11.9 Nausea & vomiting R11.2 Hematemesis K92.0 BPH (benign prostatic hyperplasia) N40.0 COPD (chronic obstructive pulmonary disease) J44.9
[2024-08-01] MEDS: enoxaparin 40 mg/0.4 mL Syringe SUBCUT (20:36)
[2024-08-01] MEDS: atorvastatin 40 mg Tablet PO (20:36)
[2024-08-02] VITALS (7 sets, daily range): BP systolic 102–144; BP diastolic 43–70; PULSE 61–89; RESP 16–18; TEMP 36.4–36.8; O2SAT 92–96
[2024-08-02] MEDS: sucralfate 1 gm/10 mL Oral Liq UDC PO ×4 (01:11→20:11)
[2024-08-02] MEDS: finasteride 5 mg Tablet PO (05:20)
[2024-08-02 05:45] LABS: Basophils % 0.4 %; Eosinophils # 0.3 10^3/uL (0.0-0.8); Eosinophils % 4.6 %; Hematocrit 34.1 % (37-53); Lymphocytes # 0.5 10^3/uL (0.8-4.8); Lymphocytes % 9.3 %; Mean Corpuscular HGB Conc 31.7 g/dL (30-55); Mean Corpuscular Hemoglobin 33.6 pg (27-33); Mean Corpuscular Volume 106.2 fl (82-101); Mean Platelet Volume 10.2 fL (7.4-10.4); Monocytes # 0.5 10^3/uL (0.2-0.9); Monocytes % 8.1 %; Neutrophils # 4.42 10^3/uL (1.8-7.7); Neutrophils % 77.2 %; Nucleated Red Blood Cells % 0 %; Platelet Count 166 10^3/cmm (157-399); Red Blood Count 3.21 10^6/uL (3.85-5.65); Red Cell Distribution Width 14.7 % (12.1-15.1); White Blood Count 5.71 10^3/uL (3.29-11.43)
[2024-08-02 06:06] LABS: Alanine Aminotransferase < 5 U/L (0-41); Albumin Level 2.4 g/dL (3.5-5.2); Alkaline Phosphatase 128 U/L (40-130); Anion Gap 9.7 (5-19); Aspartate Amino Transferase 15 U/L (0-40); Blood Urea Nitrogen 6 mg/dL (8-23); Calcium 7.3 mg/dL (8.5-10.5); Carbon Dioxide 24 mmol/L (22-29); Chloride 105 mmol/L (98-107); Creatinine Clr Calc Pharmacy 61.8852; Globulin 2.3 g/dL (1.3-4.6); Glucose 101 mg/dL (65-115); Magnesium 1.8 mg/dL (1.7-2.3); Osmolality Calculated 278 mOsm/kg (285-295); Phosphorus 1.8 mg/dL (2.5-4.5); Potassium 3.7 mmol/L (3.5-5.1); Sodium 135 mmol/L (136-145); Total Bilirubin 0.6 mg/dL (0.15-1.2); Total Protein 4.7 g/dL (6.6-8.7)
[2024-08-02] MEDS: phosphorus 250 mg Tablet PEG-TUBE ×2 (08:52→17:32)
[2024-08-02] MEDS: pyridoxine 50 mg Tablet 25 MG PO ×2 (08:52→17:31)
[2024-08-02] MEDS: magnesium lactate 84 mg Tablet XX (08:52)
[2024-08-02] MEDS: cilostazol 100 mg Tablet 50 MG PO ×2 (08:53→17:31)
[2024-08-02] MEDS: verapamil ER 240 mg Tablet 120 MG PO (08:53)
[2024-08-02] MEDS: tamsulosin 0.4 mg Capsule PO (08:53)
[2024-08-02] MEDS: pantoprazole 40 mg SDV IVP ×2 (08:54→17:30)
--- NOTE | 2024-08-02 12:43 | P.PN_ITS ---
Subjective 2 Subjective: Patient was seen this morning, denies any fevers, no chills, no cough does report generalized weakness, he is receiving bolus tube feedings, denies any nausea, no vomiting, Vitals/I&O/Wt Last Vital Signs Temp 97.8 F 08/02/24 10:07 Pulse 89 08/02/24 10:07 Resp 16 08/02/24 10:07 BP 102/45 08/02/24 10:07 Pulse Ox 92 08/02/24 10:07 O2 Del Method Room Air 08/02/24 10:07 O2 Flow Rate 2 08/02/24 10:07 08/01/24 08/02/24 08/02/24 22:59 06:59 14:59 Intake Total 1106.8436 / 1206.8436 1095 / 2301.8436 400 / 400 Output Total 300 / 300 550 / 850 Balance 806.8436 / 906.8436 545 / 1451.8436 400 / 400 Weight last 48 hrs Weight 68.991 kg Weight 64.546 kg Physical Exam 2 Const: COMMON NORMALS: no acute distress and patient oriented x3 Resp: COMMON NORMALS: normal respiratory effort, No retractions, No use of accessory muscles and clear to auscultation bilaterally AUSCULTATION: clear to auscultation bilaterally Cardio: COMMON NORMALS: regular rate, regular rhythm, S1 normal heart sound present and S2 normal heart sound present RATE: regular rate RHYTHM: r egular rhythm HEART SOUNDS: S1 normal heart sound present and S2 normal heart sound present GI: COMMON NORMALS: Normal to inspection, nondistended, normoactive bowel sounds present and non-tender Extremity: COMMON NORMALS: no pedal edema Neuro: COMMON NORMALS: patient oriented x3 Psych: COMMON NORMALS: mental status grossly normal Urinary Catheter Management: Argueta: Cath Placed During This Visit: yes Reason for Continuing Indwelling Catheter: Acute Urinary Retention or Obstruction Urinary Catheter Date of Insertion: 07/30/24 Urinary Catheter Time of Insertion: 22:05 Data 08/02/24 05:07 08/02/24 05:07 A&P Assessment and plan (1) Adult failure to thrive: (2) Diabetes mellitus: (3) Nausea & vomiting: (4) Hematemesis: (5) BPH (benign prostatic hyperplasia): (6) COPD (chronic obstructive pulmonary disease): Plan Inability to eat liquid diet Failure to thrive Significant weight loss Esophageal stricture status post TTS balloon dilation EGD done 02/20/2024 Patient is agreeable for PEG tube placement Dr. العلي consulted Status post PEG tube placement Continue D5 normal saline Would use IV morphine for pain management Replenish electrolytes DVT prophylaxis: SCDs Patient is full code discussed goals of care with him and his son Patient has an AICD/pacemaker Oncology records reviewed Which shows that there was plan to do DoceTaxel once PEG tube was placed Continue bolus tube feedings PT OT, Attestations 2 Medical Necessity Statement*: Patient requires hospitalization for failure to thrive, requiring PEG tube placement, monitoring on bolus tube feedings Diagnoses Adult failure to thrive R62.7 Diabetes mellitus E11.9 Nausea & vomiting R11.2 Hematemesis K92.0 BPH (benign prostatic hyperplasia) N40.0 COPD (chronic obstructive pulmonary disease) J44.9
[2024-08-02] MEDS: atorvastatin 40 mg Tablet PO (20:12)
[2024-08-02] MEDS: enoxaparin 40 mg/0.4 mL Syringe SUBCUT (20:12)
[2024-08-03] VITALS (7 sets, daily range): BP systolic 100–137; BP diastolic 50–64; PULSE 75–95; RESP 16–18; TEMP 36.5–37; O2SAT 90–96
[2024-08-03] MEDS: sucralfate 1 gm/10 mL Oral Liq UDC PO ×4 (02:12→20:57)
[2024-08-03 05:09] LABS: Basophils % 0.2 %; Eosinophils # 0.2 10^3/uL (0.0-0.8); Eosinophils % 3.6 %; Hematocrit 33.2 % (37-53); Lymphocytes # 0.5 10^3/uL (0.8-4.8); Lymphocytes % 8.5 %; Mean Corpuscular HGB Conc 33.4 g/dL (30-55); Mean Corpuscular Hemoglobin 34.3 pg (27-33); Mean Corpuscular Volume 102.5 fl (82-101); Monocytes # 0.4 10^3/uL (0.2-0.9); Monocytes % 7.6 %; Neutrophils # 4.41 10^3/uL (1.8-7.7); Neutrophils % 79.7 %; Nucleated Red Blood Cells % 0 %; Platelet Count 168 10^3/cmm (157-399); Red Blood Count 3.24 10^6/uL (3.85-5.65); Red Cell Distribution Width 14.3 % (12.1-15.1); White Blood Count 5.53 10^3/uL (3.29-11.43)
[2024-08-03 05:58] LABS: Alanine Aminotransferase < 5 U/L (0-41); Albumin Level 2.4 g/dL (3.5-5.2); Alkaline Phosphatase 129 U/L (40-130); Anion Gap 10.9 (5-19); Aspartate Amino Transferase 15 U/L (0-40); Blood Urea Nitrogen 8 mg/dL (8-23); Calcium 7.1 mg/dL (8.5-10.5); Carbon Dioxide 25 mmol/L (22-29); Chloride 108 mmol/L (98-107); Creatinine Clr Calc Pharmacy 61.4513; Globulin 2.2 g/dL (1.3-4.6); Glucose 120 mg/dL (65-115); Magnesium 1.7 mg/dL (1.7-2.3); Osmolality Calculated 292 mOsm/kg (285-295); Phosphorus 1.9 mg/dL (2.5-4.5); Sodium 141 mmol/L (136-145); Total Bilirubin 0.4 mg/dL (0.15-1.2); Total Protein 4.6 g/dL (6.6-8.7)
[2024-08-03] MEDS: finasteride 5 mg Tablet PO (06:03)
[2024-08-03 06:04] LABS: Potassium 2.9 mmol/L (3.5-5.1)
[2024-08-03] MEDS: lidocaine 1% 5 ML in potassium chloride premix 100 ML 26.25 ML IV (06:32)
[2024-08-03] MEDS: pantoprazole 40 mg SDV IVP ×2 (08:18→16:47)
[2024-08-03] MEDS: verapamil ER 240 mg Tablet 120 MG PO (08:18)
[2024-08-03] MEDS: pyridoxine 50 mg Tablet 25 MG PO ×2 (08:19→16:48)
[2024-08-03] MEDS: tamsulosin 0.4 mg Capsule PO (08:19)
[2024-08-03] MEDS: phosphorus 250 mg Tablet PEG-TUBE ×2 (08:19→16:48)
[2024-08-03] MEDS: magnesium lactate 84 mg Tablet XX (08:19)
[2024-08-03] MEDS: cilostazol 100 mg Tablet 50 MG PO ×2 (08:19→16:48)
[2024-08-03] MEDS: morphine 4 mg/mL SDV 1 mL 2 MG IVP (10:56)
[2024-08-03 14:17] LABS: Anion Gap 13.4 (5-19); Blood Urea Nitrogen 8 mg/dL (8-23); Calcium 7.5 mg/dL (8.5-10.5); Carbon Dioxide 24 mmol/L (22-29); Chloride 106 mmol/L (98-107); Glucose 168 mg/dL (65-115); Osmolality Calculated 292 mOsm/kg (285-295); Phosphorus 1.4 mg/dL (2.5-4.5); Potassium 3.4 mmol/L (3.5-5.1); Sodium 140 mmol/L (136-145)
--- NOTE | 2024-08-03 14:28 | P.PN_ITS ---
Subjective 2 Subjective: Patient was seen this morning, does report generalized weakness, but was able to get up beside the bed with the help of nursing staff, we discussed his low potassium, phosphorus, we discussed my concerns for early refeeding syndrome, will replace electrolytes IV, recheck his BMP this afternoon, is agreeable, he plans on going home with his son, Vitals/I&O/Wt Last Vital Signs Temp 98.1 F 08/03/24 08:02 Pulse 95 08/03/24 11:25 Resp 16 08/03/24 10:56 BP 100/59 08/03/24 11:25 Pulse Ox 90 08/03/24 11:25 O2 Del Method Nasal Cannula 08/03/24 11:25 O2 Flow Rate 1 08/03/24 11:25 08/02/24 08/03/24 08/03/24 22:59 06:59 14:59 Intake Total 630 / 1330 650 / 1980 945 / 945 Output Total 350 / 350 675 / 1025 Balance 280 / 980 -25 / 955 945 / 945 Weight last 48 hrs Weight 67.812 kg Weight 68.991 kg Physical Exam 2 Const: COMMON NORMALS: no acute distress and patient oriented x3 OTHER: Has evidence of protein calorie malnutrition, bilateral temporal muscle wasting, thinning of fat pad under bilateral clavicles, ribs, thinning of muscles of bilateral arms, thighs Resp: COMMON NORMALS: normal respiratory effort, No retractions, No use of accessory muscles and clear to auscultation bilaterally AUSCULTATION: clear to auscultation bilaterally Cardio: COMMON NORMALS: regular rate, regular rhythm, S1 normal heart sound present and S2 normal heart sound present RATE: regular rate RHYTHM: r egular rhythm HEART SOUNDS: S1 normal heart sound present and S2 normal heart sound present GI: COMMON NORMALS: Normal to inspection, nondistended, normoactive bowel sounds present and non-tender Extremity: COMMON NORMALS: no pedal edema Neuro: COMMON NORMALS: patient oriented x3 Psych: COMMON NORMALS: mental status grossly normal Urinary Catheter Management: Argueta: Cath Placed During This Visit: yes, but has since been removed by the nurse Reason for Continuing Indwelling Catheter: Decision to DC Catheter Urinary Catheter Date of Insertion: 07/30/24 Urinary Catheter Time of Insertion: 22:05 Date Urinary Catheter Removed: 08/03/24 Time Urinary Catheter Discontinued: 11:14 Data 08/03/24 04:32 08/03/24 13:54 A&P Assessment and plan (1) Adult failure to thrive: (2) Diabetes mellitus: (3) Nausea & vomiting: (4) Hematemesis: (5) BPH (benign prostatic hyperplasia): (6) COPD (chronic obstructive pulmonary disease): (7) Protein calorie malnutrition: (8) Physical deconditioning: (9) Refeeding syndrome: Plan Inability to eat liquid diet Failure to thrive Significant weight loss Esophageal stricture status post TTS balloon dilation EGD done 02/20/2024 Patient is agreeable for PEG tube placement Dr. العلي consulted Status post PEG tube placement Currently on PEG tube feedings, bolus tube Would use IV morphine for pain management Replenish electrolytes DVT prophylaxis: SCDs Patient is full code discussed goals of care with him and his son Patient has an AICD/pacemaker Protein -calorie malnutrition, physical deconditioning, currently receiving PEG tube feedings, optimize based upon dietary's recommendations, PT OT Concerns for refeeding syndrome given hypokalemia, hypomagnesemia, hypophosphatemia, will place IV Continue bolus tube feedings PT OT, Attestations 2 Medical Necessity Statement*: Patient requires hospitalization for protein calorie malnutrition, poor oral intake requiring PEG tube feedings, now with concerns for refeeding syndrome Diagnoses Adult failure to thrive R62.7 Diabetes mellitus E11.9 Nausea & vomiting R11.2 Hematemesis K92.0 BPH (benign prostatic hyperplasia) N40.0 COPD (chronic obstructive pulmonary disease) J44.9 Protein calorie malnutrition E46 Physical deconditioning R53.81 Refeeding syndrome E87.8
[2024-08-03 14:47] LABS: Creatinine Clr Calc Pharmacy 61.4513
[2024-08-03] MEDS: potassium phosphate (mEq K) 40 MEQ in sodium chloride 0.9% (100 ml) 100 ML 27.25 MEQ IV (16:46)
--- NOTE | 2024-08-03 17:34 | PC.NURSE ---
Patient unable to urinate after ritter removal at 11am after attempting twice. Bladder scan revealed 258mL of urine. Dr Paradise nicole order to straight cath and repeat bladder scan in 4 hours. Straight cath performed using sterile technique and 175mL of urine returned. Patient tolerated procedure well.
[2024-08-03] MEDS: atorvastatin 40 mg Tablet PO (20:57)
[2024-08-03] MEDS: enoxaparin 40 mg/0.4 mL Syringe SUBCUT (20:58)
[2024-08-04] MEDS: sucralfate 1 gm/10 mL Oral Liq UDC PO ×4 (02:36→20:02)
[2024-08-04 04:03] LABS: Basophils % 0.4 %; Eosinophils # 0.2 10^3/uL (0.0-0.8); Eosinophils % 4.7 %; Hematocrit 32.3 % (37-53); Lymphocytes # 0.6 10^3/uL (0.8-4.8); Lymphocytes % 11.9 %; Mean Corpuscular HGB Conc 32.8 g/dL (30-55); Mean Corpuscular Hemoglobin 34.2 pg (27-33); Mean Corpuscular Volume 104.2 fl (82-101); Mean Platelet Volume 10.3 fL (7.4-10.4); Monocytes # 0.5 10^3/uL (0.2-0.9); Monocytes % 9.2 %; Neutrophils # 3.58 10^3/uL (1.8-7.7); Neutrophils % 73.6 %; Nucleated Red Blood Cells % 0 %; Platelet Count 168 10^3/cmm (157-399); Red Cell Distribution Width 14.6 % (12.1-15.1); White Blood Count 4.87 10^3/uL (3.29-11.43)
[2024-08-04 04:05] VITALS: BP 103/55; PULSE 85; RESP 16; TEMP 36.7; O2SAT 91
[2024-08-04 04:25] LABS: Alanine Aminotransferase 6 U/L (0-41); Albumin Level 2.5 g/dL (3.5-5.2); Alkaline Phosphatase 106 U/L (40-130); Anion Gap 10.4 (5-19); Aspartate Amino Transferase 16 U/L (0-40); Blood Urea Nitrogen 7 mg/dL (8-23); Calcium 7.4 mg/dL (8.5-10.5); Carbon Dioxide 27 mmol/L (22-29); Chloride 106 mmol/L (98-107); Creatinine Clr Calc Pharmacy 61.4513; Globulin 2.1 g/dL (1.3-4.6); Glucose 114 mg/dL (65-115); Magnesium 1.6 mg/dL (1.7-2.3); Osmolality Calculated 289 mOsm/kg (285-295); Phosphorus 2.4 mg/dL (2.5-4.5); Potassium 3.4 mmol/L (3.5-5.1); Sodium 140 mmol/L (136-145); Total Bilirubin 0.5 mg/dL (0.15-1.2); Total Protein 4.6 g/dL (6.6-8.7)
[2024-08-04] MEDS: finasteride 5 mg Tablet PO (06:10)
[2024-08-04 07:32] VITALS: BP 117/63; PULSE 102; RESP 17; TEMP 36.8; O2SAT 92
--- NOTE | 2024-08-04 07:40 | P.PN_ITS ---
Subjective 2 Subjective: Patient has been stable over the weekend, tolerated tube feeds, complains of some soreness at the level of the incision but other than that no abdominal pain or distention. Vitals/I&O/Wt Last Vital Signs Temp 98.2 F 08/04/24 07:32 Pulse 102 H 08/04/24 07:32 Resp 17 08/04/24 07:32 BP 117/63 08/04/24 07:32 Pulse Ox 92 08/04/24 07:32 O2 Del Method Room Air 08/04/24 07:32 O2 Flow Rate 1 08/03/24 11:25 08/03/24 08/04/24 08/04/24 22:59 06:59 14:59 Intake Total 768.5106 / 1713.5106 850 / 2563.5106 Output Total 300 / 300 375 / 675 200 / 200 Balance 468.5106 / 1413.5106 475 / 1888.5106 -200 / -200 Weight last 48 hrs Weight 151 lb 9.6 oz Weight 149 lb 8 oz Physical Exam 2 GI: OTHER: Abdomen is soft nontender nondistended, surgical incision is healing well, no leakage around the gastrostomy tube Urinary Catheter Management: Argueta: Cath Placed During This Visit: yes, but has since been removed by the nurse Reason for Continuing Indwelling Catheter: Decision to DC Catheter Urinary Catheter Date of Insertion: 07/30/24 Urinary Catheter Time of Insertion: 22:05 Date Urinary Catheter Removed: 08/03/24 Time Urinary Catheter Discontinued: 11:14 Data 08/04/24 02:54 08/04/24 02:54 A&P Assessment and plan (1) PEG (percutaneous endoscopic gastrostomy) status: (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 Tolerating tube feeds, electrolytes appear to be stable this morning with improvement in the phosphorus just slightly downtrend of the magnesium. She is stable for discharge from the general surgery standpoint. All additional management is appreciated by primary team. Attestations 2 Medical Necessity Statement*: Per medical Coding Level of Care Code Acute Code for Chg Fwd Diagnoses PEG (percutaneous endoscopic gastrostomy) status Z93.1 Malignant neoplasm of lower third of esophagus C15.5
[2024-08-04 08:37] VITALS: PULSE 84; RESP 18; O2SAT 92
[2024-08-04] MEDS: potassium phosphate (mEq K) 40 MEQ in sodium chloride 0.9% (100 ml) 100 ML 27.25 MEQ IV (09:22)
[2024-08-04] MEDS: magnesium lactate 84 mg Tablet XX (09:26)
[2024-08-04] MEDS: verapamil ER 240 mg Tablet 120 MG PO (09:26)
[2024-08-04] MEDS: tamsulosin 0.4 mg Capsule PO (09:26)
[2024-08-04] MEDS: phosphorus 250 mg Tablet PEG-TUBE ×2 (09:26→18:16)
[2024-08-04] MEDS: cilostazol 100 mg Tablet 50 MG PO ×2 (09:26→18:16)
[2024-08-04] MEDS: pantoprazole 40 mg SDV IVP ×2 (09:26→18:16)
[2024-08-04] MEDS: pyridoxine 50 mg Tablet 25 MG PO ×2 (09:40→18:17)
--- NOTE | 2024-08-04 09:53 | PC.SOCIAL ---
IMM Update pg 2 of IMM Updated and reviewed w/ patient. Copy provided and copy dated, initialed and placed in chart.
[2024-08-04 11:56] VITALS: BP 108/56; PULSE 93; RESP 17; TEMP 36.7; O2SAT 92
--- NOTE | 2024-08-04 13:55 | P.PN_ITS ---
Subjective 2 Subjective: Patient was seen this morning, reports generalized weakness, he refused his bolus tube feeding last night due to bloating, and diarrhea, we discussed spreading out his bolus tube feedings, discussed diarrhea that would be present with PEG tube feedings, Vitals/I&O/Wt Last Vital Signs Temp 98.0 F 08/04/24 11:56 Pulse 93 08/04/24 11:56 Resp 17 08/04/24 11:56 BP 108/56 08/04/24 11:56 Pulse Ox 92 08/04/24 11:56 O2 Del Method Room Air 08/04/24 11:56 O2 Flow Rate 1 08/03/24 11:25 08/03/24 08/04/24 08/04/24 22:59 06:59 14:59 Intake Total 768.5106 / 1713.5106 850 / 2563.5106 175 / 175 Output Total 300 / 300 375 / 675 200 / 200 Balance 468.5106 / 1413.5106 475 / 1888.5106 -25 / -25 Weight last 48 hrs Weight 68.765 kg Weight 67.812 kg Physical Exam 2 Const: COMMON NORMALS: no acute distress and patient oriented x3 Resp: COMMON NORMALS: normal respiratory effort, No retractions, No use of accessory muscles and clear to auscultation bilaterally AUSCULTATION: clear to auscultation bilaterally Cardio: COMMON NORMALS: regular rate, regular rhythm, S1 normal heart sound present and S2 normal heart sound present RATE: regular rate RHYTHM: r egular rhythm HEART SOUNDS: S1 normal heart sound present and S2 normal heart sound present GI: COMMON NORMALS: Normal to inspection, nondistended, normoactive bowel sounds present and non-tender Extremity: COMMON NORMALS: no pedal edema Neuro: COMMON NORMALS: patient oriented x3 Psych: COMMON NORMALS: mental status grossly normal Urinary Catheter Management: Argueta: Cath Placed During This Visit: yes, but has since been removed by the nurse Reason for Continuing Indwelling Catheter: Decision to DC Catheter Urinary Catheter Date of Insertion: 07/30/24 Urinary Catheter Time of Insertion: 22:05 Date Urinary Catheter Removed: 08/03/24 Time Urinary Catheter Discontinued: 11:14 Data 08/04/24 02:54 08/04/24 02:54 A&P Assessment and plan (1) Adult failure to thrive: (2) Diabetes mellitus: (3) Nausea & vomiting: (4) Hematemesis: (5) BPH (benign prostatic hyperplasia): (6) COPD (chronic obstructive pulmonary disease): (7) Protein calorie malnutrition: (8) Physical deconditioning: (9) Refeeding syndrome: Plan Inability to eat liquid diet Failure to thrive Significant weight loss Esophageal stricture status post TTS balloon dilation EGD done 02/20/2024 Patient is agreeable for PEG tube placement Dr. العلي consulted Status post PEG tube placement Currently on PEG tube feedings, bolus tube Would use IV morphine for pain management Replenish electrolytes DVT prophylaxis: SCDs Patient is full code discussed goals of care with him and his son Patient has an AICD/pacemaker Protein -calorie malnutrition, physical deconditioning, currently receiving PEG tube feedings, optimize based upon dietary's recommendations, PT OT Concerns for refeeding syndrome given hypokalemia, hypomagnesemia, hypophosphatemia, will place IV Evidence of early refeeding syndrome replace potassium, phosphorus, magnesium, spread tube feedings out Attestations 2 Medical Necessity Statement*: Patient requires hospitalization for concerns for refeeding syndrome, protein calorie malnutrition Diagnoses Adult failure to thrive R62.7 Diabetes mellitus E11.9 Nausea & vomiting R11.2 Hematemesis K92.0 BPH (benign prostatic hyperplasia) N40.0 COPD (chronic obstructive pulmonary disease) J44.9 Protein calorie malnutrition E46 Physical deconditioning R53.81 Refeeding syndrome E87.8
[2024-08-04] MEDS: magnesium sulfate premix 1 GM/100 ML PIGGYBACK IV (15:38)
[2024-08-04 16:00] VITALS: BP 107/52; PULSE 87; RESP 18; TEMP 36.9; O2SAT 92
[2024-08-04 19:35] VITALS: BP 139/78; PULSE 86; RESP 16; TEMP 36.5; O2SAT 90
[2024-08-04] MEDS: atorvastatin 40 mg Tablet PO (20:02)
[2024-08-04] MEDS: enoxaparin 40 mg/0.4 mL Syringe SUBCUT (20:02)
[2024-08-05] VITALS: BP 133/73; PULSE 101; RESP 21; TEMP 37; O2SAT 91
[2024-08-05] MEDS: sucralfate 1 gm/10 mL Oral Liq UDC PO ×2 (01:03→09:07)
[2024-08-05 04:00] VITALS: BP 105/57; PULSE 86; RESP 18; TEMP 37; O2SAT 93
[2024-08-05] MEDS: finasteride 5 mg Tablet PO (04:59)
[2024-08-05 05:05] LABS: Basophils % 0.4 %; Eosinophils # 0.2 10^3/uL (0.0-0.8); Eosinophils % 4.6 %; Hematocrit 30.8 % (37-53); Lymphocytes # 0.5 10^3/uL (0.8-4.8); Lymphocytes % 9.8 %; Mean Corpuscular HGB Conc 32.8 g/dL (30-55); Mean Corpuscular Hemoglobin 33.4 pg (27-33); Mean Platelet Volume 9.7 fL (7.4-10.4); Monocytes # 0.4 10^3/uL (0.2-0.9); Monocytes % 8.8 %; Neutrophils # 3.64 10^3/uL (1.8-7.7); Nucleated Red Blood Cells % 0 %; Platelet Count 153 10^3/cmm (157-399); Red Blood Count 3.02 10^6/uL (3.85-5.65); Red Cell Distribution Width 14.6 % (12.1-15.1); White Blood Count 4.79 10^3/uL (3.29-11.43)
[2024-08-05 05:32] LABS: Alanine Aminotransferase 10 U/L (0-41); Albumin Level 2.4 g/dL (3.5-5.2); Alkaline Phosphatase 119 U/L (40-130); Anion Gap 10.4 (5-19); Aspartate Amino Transferase 21 U/L (0-40); Blood Urea Nitrogen 9 mg/dL (8-23); Calcium 7.4 mg/dL (8.5-10.5); Carbon Dioxide 25 mmol/L (22-29); Chloride 108 mmol/L (98-107); Glucose 143 mg/dL (65-115); Magnesium 1.6 mg/dL (1.7-2.3); Osmolality Calculated 291 mOsm/kg (285-295); Phosphorus 2.5 mg/dL (2.5-4.5); Potassium 3.4 mmol/L (3.5-5.1); Sodium 140 mmol/L (136-145); Total Bilirubin 0.3 mg/dL (0.15-1.2); Total Protein 4.4 g/dL (6.6-8.7)
[2024-08-05 07:00] VITALS: BP 114/66; PULSE 89; RESP 16; TEMP 36.4; O2SAT 92
[2024-08-05] MEDS: magnesium sulfate premix 1 GM/100 ML PIGGYBACK IV (08:58)
[2024-08-05] MEDS: pyridoxine 50 mg Tablet 25 MG PO (09:07)
[2024-08-05] MEDS: phosphorus 250 mg Tablet PEG-TUBE (09:07)
[2024-08-05] MEDS: tamsulosin 0.4 mg Capsule PO (09:08)
[2024-08-05] MEDS: magnesium lactate 84 mg Tablet XX (09:08)
[2024-08-05] MEDS: verapamil ER 240 mg Tablet 120 MG PO (09:08)
[2024-08-05] MEDS: cilostazol 100 mg Tablet 50 MG PO (09:08)
[2024-08-05] MEDS: pantoprazole 40 mg SDV IVP (09:09)
[2024-08-05 09:10] VITALS: PULSE 89; RESP 18; O2SAT 91
[2024-08-05] MEDS: potassium phosphate (mEq K) 40 MEQ in sodium chloride 0.9% (100 ml) 100 ML 27.25 MEQ IV (09:31)
[2024-08-05] MEDS: lidocaine 1% 10 ML INJ 5 ML IV (09:52)
--- NOTE | 2024-08-05 11:02 | PM.DCS ---
Discharge Providers Date of Admission: 07/28/24 20:59 Date of Discharge: August 05, 2024 Attending Provider at Admission: Dulce Linn MD Attending Provider at Discharge: Jose Luis Ghotra MD Primary Care Provider: Angelica Cedeño MD Diagnoses at Discharge Discharge Diagnosis (1) Adult failure to thrive: Status: Acute (2) Diabetes mellitus: Status: Acute (3) Nausea & vomiting: Status: Acute (4) Hematemesis: Status: Acute (5) BPH (benign prostatic hyperplasia): Status: Acute (6) COPD (chronic obstructive pulmonary disease): Status: Acute (7) Protein calorie malnutrition: Status: Acute (8) Physical deconditioning: Status: Acute (9) Refeeding syndrome: Status: Acute Reason for Visit Reason for Visit: n,v Hospital Course Hospital Course This is a 89-year-old male with a history esophageal cancer, failure to thrive, protein, malnutrition, who presents [facility] due to inability to eat, weight loss, plan on PEG tube placement Patient was admitted to [facility], status post PEG tube placement by general surgery, tolerated procedure well, initially managed with trickle tube feeds and advance to bolus tube feedings which had to be adjusted, on discharge this is his regimen: - TwoCal HN at 4 cartons daily with 200 mL every 4 hours free water flush Patient also developed early refeeding syndrome during his hospitalization requiring a replacement of his electrolytes including potassium, phosphorus, magnesium. I have discharged him on a 7-day supply of p.o. electrolytes. Follow-up with primary care provider as outpatient Patient has declined intermediate placement, will be discharged to the care of his son Physical Exam Const: COMMON NORMALS: no acute distress and patient oriented x3 Resp: COMMON NORMALS: normal respiratory effort, No retractions, No use of accessory muscles and clear to auscultation bilaterally AUSCULTATION: clear to auscultation bilaterally Cardio: COMMON NORMALS: regular rate, regular rhythm, S1 normal heart sound present and S2 normal heart sound present RATE: regular rate RHYTHM: regular rhythm HEART SOUNDS: S1 normal heart sound present and S2 normal heart sound present GI: COMMON NORMALS: Normal to inspection, nondistended, normoactive bowel sounds present and non-tender OTHER: PEG tube in place Extremity: COMMON NORMALS: no pedal edema Neuro: COMMON NORMALS: patient oriented x3 Psych: COMMON NORMALS: mental status grossly normal Urinary Catheter Management: Argueta: Cath Placed During This Visit: yes, but has since been removed by the nurse Reason for Continuing Indwelling Catheter: Decision to DC Catheter Urinary Catheter Date of Insertion: 07/30/24 Urinary Catheter Time of Insertion: 22:05 Date Urinary Catheter Removed: 08/03/24 Time Urinary Catheter Discontinued: 11:14 Discharge Data Studies Completed and Pending Completed Studies During Hospitalization Category Date Time Status XR abdomen 1V* 70125 Routine Exams 07/31/24 07:01 Completed Pending at discharge Category Date Time Status Complete Blood Count w/Auto AM LABS Lab 08/06/24 04:00 Ordered Complete Blood Count w/Auto AM LABS Lab 08/07/24 04:00 Ordered Comprehensive Metabolic Panel AM LABS Lab 08/06/24 04:00 Ordered Comprehensive Metabolic Panel AM LABS Lab 08/07/24 04:00 Ordered Magnesium AM LABS Lab 08/06/24 04:00 Ordered Magnesium AM LABS Lab 08/07/24 04:00 Ordered Phosphorus AM LABS Lab 08/06/24 04:00 Ordered Phosphorus AM LABS Lab 08/07/24 04:00 Ordered Radiology Impressions Abdomen X-Ray 07/31/24 07:01 IMPRESSION: Contrast injected through the gastrostomy tube fills the stomach without extra gastric extravasation identified. Laboratory Results WBC 4.79 10^3/uL (3.29-11.43) 08/05/24 04:56 RBC 3.02 10^6/uL (3.85-5.65) L 08/05/24 04:56 Hgb 10.10 g/dL (11.27-16.99) L 08/05/24 04:56 Hct 30.8 % (37-53) L 08/05/24 04:56 MCV 102.0 fl (82-101) H 08/05/24 04:56 MCH 33.4 pg (27-33) H 08/05/24 04:56 MCHC 32.8 g/dL (30-55) 08/05/24 04:56 RDW 14.6 % (12.1-15.1) 08/05/24 04:56 Plt Count 153 10^3/cmm (157-399) L 08/05/24 04:56 MPV 9.7 fL (7.4-10.4) 08/05/24 04:56 Neut % (Auto) 76.0 % 08/05/24 04:56 Lymph % (Auto) 9.8 % 08/05/24 04:56 [place] % (Auto) 8.8 % 08/05/24 04:56 Eos % (Auto) 4.6 % 08/05/24 04:56 Baso % (Auto) 0.4 % 08/05/24 04:56 Neut # (Auto) 3.64 10^3/uL (1.8-7.7) 08/05/24 04:56 Lymph # (Auto) 0.5 10^3/uL (0.8-4.8) L 08/05/24 04:56 [place] # (Auto) 0.4 10^3/uL (0.2-0.9) 08/05/24 04:56 Eos # (Auto) 0.2 10^3/uL (0.0-0.8) 08/05/24 04:56 Baso # (Auto) 0.0 10^3/uL (0.0-0.1) 08/05/24 04:56 Nucleated RBC % (auto) 0 % 08/05/24 04:56 Nucleated RBCs # 0.0 /100WBC 08/05/24 04:56 Sodium 140 mmol/L (136-145) 08/05/24 04:56 Potassium 3.4 mmol/L (3.5-5.1) L 08/05/24 04:56 Chloride 108 mmol/L (98-107) H 08/05/24 04:56 Carbon Dioxide 25 mmol/L (22-29) 08/05/24 04:56 Anion Gap 10.4 (5-19) 08/05/24 04:56 BUN 9 mg/dL (8-23) 08/05/24 04:56 Creatinine 0.4 mg/dL (0.7-1.2) L 08/05/24 04:56 GFR Calculation Not Reportable 08/05/24 04:56 Glucose 143 mg/dL (65-115) H 08/05/24 04:56 Calculated Osmolality 291 mOsm/kg (285-295) 08/05/24 04:56 Calcium 7.4 mg/dL (8.5-10.5) L 08/05/24 04:56 Phosphorus 2.5 mg/dL (2.5-4.5) 08/05/24 04:56 Magnesium 1.6 mg/dL (1.7-2.3) L 08/05/24 04:56 Total Bilirubin 0.3 mg/dL (0.15-1.2) 08/05/24 04:56 AST 21 U/L (0-40) 08/05/24 04:56 ALT 10 U/L (0-41) 08/05/24 04:56 Alkaline Phosphatase 119 U/L (40-130) 08/05/24 04:56 Total Protein 4.4 g/dL (6.6-8.7) L 08/05/24 04:56 Albumin 2.4 g/dL (3.5-5.2) L 08/05/24 04:56 Globulin 2.0 g/dL (1.3-4.6) 08/05/24 04:56 Lipase 17 U/L (13-60) 07/28/24 16:04 Vitals Last Vital Signs Temp 97.6 F 08/05/24 07:00 Pulse 89 08/05/24 09:10 Resp 18 08/05/24 09:10 BP 114/66 08/05/24 07:00 Pulse Ox 91 08/05/24 09:10 O2 Del Method Room Air 08/05/24 09:10 O2 Flow Rate 1 08/03/24 11:25 Discharge Plan Discharge Patient Disposition: Home Condition: Stable Prescriptions: New Phospha 250 Neutral 250 mg Tablet 1 tab peg-tube BID 7 Days Qty: 14 0RF magnesium L-lactate [Magtab] 84 mg Tablet Extended Release 84 mg PO DAILY 7 Days Qty: 7 0RF Rx Instructions: PEGTUBE potassium chloride 40 mEq/15 mL liquid 20 meq feeding tube DAILY 7 Days Qty: 100 0RF Continued pyridoxine (vitamin B6) 50 mg tablet 25 mg PO BID Spiriva Respimat 1.25 mcg/actuation mist 2 puff inhalation DAILY Qty: 4 6RF lubiprostone [Amitiza] 24 mcg capsule 24 mcg PO BID Qty: 60 3RF cilostazol 50 mg tablet 50 mg PO BID Qty: 180 3RF zinc acetate 50 mg (zinc) capsule 50 mg PO DAILY lorazepam 1 mg tablet 0.5 - 1 mg PO Q6H PRN (Reason: severe nausea) Qty: 30 3RF dexamethasone 4 mg tablet 8 mg PO .COMPLEX Qty: 60 3RF Rx Instructions: 2 tabs BID day before and day after taxotere prochlorperazine maleate [Compazine] 10 mg tablet 10 mg PO Q4H PRN (Reason: mild nausea) Qty: 30 3RF simvastatin 80 mg Tablet 40 mg PO BEDTIME finasteride 5 mg Tablet 5 mg PO QAM tamsulosin [Flomax] 0.4 mg Capsule 0.4 mg PO QPM nitroglycerin [Nitrostat] 0.4 mg Tablet, Sublingual 0.4 mg SUBLINGUAL Q5M PRN (Reason: Chest Pain) Rx Instructions: do not exceed 3 doses per episode verapamil 120 mg tablet 120 mg PO QAM pantoprazole [Protonix] 40 mg Tablet,Delayed Release (Dr/Ec) 40 mg PO BID ondansetron 4 mg tablet,disintegrating 4 mg PO Q6H PRN (Reason: nausea and vomiting) Qty: 20 0RF sucralfate 100 mg/mL Suspension 10 ml PO Q6H Rx Instructions: swish in mouth and swallow; use after food/drink loperamide 2 mg Capsule 2 mg PO TID PRN (Reason: Diarrhea) Qty: 10 0RF prochlorperazine maleate 10 mg tablet 10 mg PO Q4H Discontinued furosemide 20 mg tablet 20 mg PO QAM lisinopril 5 mg Tablet 2.5 mg PO QAM Discharge Orders: Discharge Order (Routine); Ordered 08/05/24 Ordered By: Jose Luis Ghotra Referrals: Angelica Cedeño MD [Primary Care Provider] - Discharge Diet: As Directed Discharge Activity: Resume usual activity Patient Instructions: Potassium Chloride (By mouth), Magnesium (By mouth), Phosphate Supplement (By mouth), Acute Wound Care (DC), GI Post Discharge Instructions w/ Anesthesia, Opioid Safety, Post Anesthesia Care Activity Restrictions/Additional Instructions: - TwoCal HN at 4 cartons daily with 200 mL every 4 hours free water flush Discharge Attestations Time Spent in Discharge Care*: greater than 30 min Status at Discharge: Cognitive status at discharge: cognitively intact, Behavioral status at discharge: cooperative, Quality Metrics Clinical Quality Measures [ No reported AMI, CVA or VTE this stay] Coding Level of Care Code 87157 Total time (in minutes) for Discharge: 45 Diagnoses Adult failure to thrive R62.7 Diabetes mellitus E11.9 Nausea & vomiting R11.2 Hematemesis K92.0 BPH (benign prostatic hyperplasia) N40.0 COPD (chronic obstructive pulmonary disease) J44.9 Protein calorie malnutrition E46 Physical deconditioning R53.81 Refeeding syndrome E87.8
[2024-08-05 11:19] VITALS: BP 105/65; PULSE 97; RESP 17; TEMP 36.9; O2SAT 92
[2024-08-05 15:31] VITALS: BP 105/65; PULSE 97; RESP 16; TEMP 36.9; O2SAT 92
== END 2024-08-05 14:45 | disposition home or self-care (01) | DRG 336 ==
LOC: ER 20:53 → MEDSURG 21:09
PROVIDERS: Surgery; Admitting Provider Internal Medicine; Emergency Provider Emergency Medicine; PCP Family Medicine; Visit Provider Family Medicine
PROC: 0DJ08ZZ Inspection of Upper Intestinal Tract, Via Natural or Artificial Opening Endoscopic (ICD-10-PCS; CPT 43235; principal; 2024-07-29 13:45)
PROC: 0DJ08ZZ Inspection of Upper Intestinal Tract, Via Natural or Artificial Opening Endoscopic (ICD-10-PCS; 2024-07-29 13:45)
PROC: 0DH60UZ Insertion of Feeding Device into Stomach, Open Approach (ICD-10-PCS; CPT 43246; principal; 2024-07-30 07:00)
DX: C15.5 Malignant neoplasm of lower third of esophagus (principal); E44.0 Moderate protein-calorie malnutrition; I13.0 Hypertensive heart and chronic kidney disease with heart failure and stage 1 through stage 4 chronic kidney disease, or unspecified chronic kidney disease; I42.9 Cardiomyopathy, unspecified; R62.7 Adult failure to thrive; K22.2 Esophageal obstruction; Z68.23 Body mass index [BMI] 23.0-23.9, adult; E11.22 Type 2 diabetes mellitus with diabetic chronic kidney disease; N18.9 Chronic kidney disease, unspecified; I50.9 Heart failure, unspecified; Z87.891 Personal history of nicotine dependence; E11.51 Type 2 diabetes mellitus with diabetic peripheral angiopathy without gangrene; N40.0 Benign prostatic hyperplasia without lower urinary tract symptoms; J44.9 Chronic obstructive pulmonary disease, unspecified; E86.0 Dehydration; Z92.21 Personal history of antineoplastic chemotherapy; R63.4 Abnormal weight loss; E78.5 Hyperlipidemia, unspecified; K21.9 Gastro-esophageal reflux disease without esophagitis; Z95.810 Presence of automatic (implantable) cardiac defibrillator; I25.10 Atherosclerotic heart disease of native coronary artery without angina pectoris; Z95.5 Presence of coronary angioplasty implant and graft; F10.11 Alcohol abuse, in remission; Z79.52 Long term (current) use of systemic steroids; K66.0 Peritoneal adhesions (postprocedural) (postinfection); E87.6 Hypokalemia; E83.39 Other disorders of phosphorus metabolism; E83.42 Hypomagnesemia
CPT/HCPCS: 36415; 43235; 51702; 51798; 74018; 80048; 80053; 83690; 83735; 84100; 85025; 96372; 96374; 97116; 97161; 97165; 97530; 99285; J0131; J0690; J1650; J2270; J2405; J2470; J2704; J2710; J2765; J3010; J3475; J3480; J3490; J7030; J7042

== ENCOUNTER 2024-08-13 09:16 | Oncology outpatient (recurring) (ONCR) | payer OTHER, SELFPAY ==
[2024-08-07 09:19] LABS: Basophils % 0.1 %; Hematocrit 32.7 % (37-53); Lymphocytes # 0.3 10^3/uL (0.8-4.8); Lymphocytes % 2.1 %; Mean Corpuscular HGB Conc 32.7 g/dL (30-55); Mean Corpuscular Hemoglobin 33.9 pg (27-33); Mean Corpuscular Volume 103.5 fl (82-101); Mean Platelet Volume 10.4 fL (7.4-10.4); Monocytes # 0.3 10^3/uL (0.2-0.9); Monocytes % 2.1 %; Neutrophils # 12.89 10^3/uL (1.8-7.7); Neutrophils % 95.1 %; Nucleated Red Blood Cells % 0 %; Platelet Count 184 10^3/cmm (157-399); Red Blood Count 3.16 10^6/uL (3.85-5.65); Red Cell Distribution Width 14.5 % (12.1-15.1); White Blood Count 13.56 10^3/uL (3.29-11.43)
[2024-08-07 09:34] LABS: Alanine Aminotransferase 22 U/L (0-41); Alkaline Phosphatase 132 U/L (40-130); Anion Gap 16.7 (5-19); Aspartate Amino Transferase 31 U/L (0-40); Blood Urea Nitrogen 18 mg/dL (8-23); Carbon Dioxide 21 mmol/L (22-29); Chloride 104 mmol/L (98-107); Creatinine Clr Calc Pharmacy 59.1977; Globulin 2.7 g/dL (1.3-4.6); Glucose 241 mg/dL (65-115); Osmolality Calculated 296 mOsm/kg (285-295); Potassium 3.7 mmol/L (3.5-5.1); Sodium 138 mmol/L (136-145); Total Bilirubin 0.4 mg/dL (0.15-1.2); Total Protein 5.7 g/dL (6.6-8.7)
[2024-08-07] MEDS: palonosetron 0.25 mg/5 mL SDV IVP (12:24)
[2024-08-07] MEDS: sodium chloride 0.9% 250 ML 75 ML IV (12:24)
[2024-08-07] MEDS: dexamethasone 4 mg/mL INJ 5 mL 12 MG IVP (12:24)
[2024-08-07] MEDS: diphenhydrAMINE 50 mg/mL SDV 1mL 25 MG IVP (12:29)
[2024-08-07] MEDS: famotidine 20 mg/2 mL INJ IVP (12:31)
[2024-08-07] MEDS: [UNRECOGNIZED DRUG - REMARK] 260.3 MG IV (13:09)
[2024-08-07 14:29] VITALS: BP 124/78; PULSE 78; RESP 18; TEMP 36.6; O2SAT 97
[2024-08-13 09:47] LABS: Eosinophils % 4.2 %; Hematocrit 33.4 % (37-53); Lymphocytes # 0.2 10^3/uL (0.8-4.8); Lymphocytes % 62.5 %; Mean Corpuscular Hemoglobin 32.9 pg (27-33); Mean Corpuscular Volume 102.8 fl (82-101); Mean Platelet Volume 11.4 fL (7.4-10.4); Monocytes % 12.5 %; Neutrophils % 20.8 %; Nucleated Red Blood Cells % 0 %; Platelet Count 147 10^3/cmm (157-399); Red Blood Count 3.25 10^6/uL (3.85-5.65)
[2024-08-13 09:58] LABS: Alanine Aminotransferase 29 U/L (0-41); Albumin Level 3.1 g/dL (3.5-5.2); Alkaline Phosphatase 128 U/L (40-130); Anion Gap 15.5 (5-19); Aspartate Amino Transferase 19 U/L (0-40); Blood Urea Nitrogen 16 mg/dL (8-23); Calcium 7.4 mg/dL (8.5-10.5); Carbon Dioxide 22 mmol/L (22-29); Chloride 100 mmol/L (98-107); Creatinine Clr Calc Pharmacy 58.6968; Globulin 2.7 g/dL (1.3-4.6); Glucose 183 mg/dL (65-115); Osmolality Calculated 282 mOsm/kg (285-295); Potassium 4.5 mmol/L (3.5-5.1); Sodium 133 mmol/L (136-145); Total Bilirubin 0.8 mg/dL (0.15-1.2); Total Protein 5.8 g/dL (6.6-8.7)
[2024-08-13 10:32] LABS: Neutrophils # 0.05 10^3/uL (1.8-7.7); Slide Review Slide Review Perform; White Blood Count 0.24 10^3/uL (3.29-11.43)
[2024-08-13] MEDS: filgrastim-sndz 300 mcg/0.5 mL Syringe SUBCUT (12:20)
== END 2024-08-17 23:59 | disposition home or self-care (01) ==
PROVIDERS: Nurse Practitioner Family; PCP Family Medicine; Visit Provider Internal Medicine
DX: Z53.9 Procedure and treatment not carried out, unspecified reason (principal); C15.5 Malignant neoplasm of lower third of esophagus; Z79.899 Other long term (current) drug therapy; Z93.1 Gastrostomy status; Z92.3 Personal history of irradiation; Z95.828 Presence of other vascular implants and grafts; D70.1 Agranulocytosis secondary to cancer chemotherapy; T45.1X5A Adverse effect of antineoplastic and immunosuppressive drugs, initial encounter; K12.31 Oral mucositis (ulcerative) due to antineoplastic therapy; Z87.891 Personal history of nicotine dependence; D64.9 Anemia, unspecified; R53.0 Neoplastic (malignant) related fatigue
CPT/HCPCS: 36591; 80053; 85025; 96372; 96375; 96413; 99213; 99215; J1100; J1200; J2469; J3490; J7050; J9171; Q5101